=== PATIENT | female | born 1955 | race Caucasian/White ===

== ENCOUNTER → 2016-02-21 | Outpatient (CLI) | payer MEDICARE, MEDICAID ==
[~2016-02-21] MED LIST: ALBU0.086 NEB; AMIO200T PO; ASPI81TA45 PO; ATOR40TA PO; BUME1TAB PO; ENAL10TA7 PO; GLIM1TAB PO; HYDR-3533 PO; IMDU30TA PO; KLOR20TA6 PO; LORTA5 PO; METO50TA PO; OMEP20TA PO; PARO40TA PO; RIVA15 PO; SPIR25TA PO; SYMB160A INH; SYNT25TA PO; Z.0.WALKERFRONT
[2016-02-21 11:56] LABS: AUTOMATED NEUTROPHIL # 5.9 TH/MM3 (1.8-7.7); BASOPHIL % 0.4 % (0.0-2.0); EOSINOPHIL # 0.2 TH/MM3 (0-0.4); EOSINOPHIL % 2.4 % (0.0-4.0); HEMO FLAGS DIFF FINAL; LYMPHOCYTE # 1.4 TH/MM3 (1.0-4.8); MEAN CELL VOLUME 76.8 FL (80.0-100.0); MEAN CORPUSCULAR HGB CONC 32.6 % (32.0-36.0); MONO % 7.5 % (0.0-8.0); NEUT % 72.7 % (16.0-70.0); PLATELET COUNT 268 TH/MM3 (150-450); RED BLOOD COUNT 5.34 MIL/MM3 (4.00-5.30); RED CELL DISTRIBUTION WIDTH 16.2 % (11.6-17.2); WHITE BLOOD COUNT 8.1 TH/MM3 (4.0-11.0)
[2016-02-21 12:20] LABS: MICRO ALBUMIN RANDOM URINE RAW 16.6 MG/L (0.0-30.0)
[2016-02-21 12:24] LABS: ALKALINE PHOSPHATASE 121 U/L (45-117); ALT (GPT) 12 U/L (10-53); ANION GAP 6 MEQ/L (5-15); AST (GOT) 10 U/L (15-37); BICARBONATE 29.7 MEQ/L (21.0-32.0); BLOOD UREA NITROGEN 23 MG/DL (7-18); CHLORIDE 104 MEQ/L (98-107); GLOMERULAR FILTRATION RATE 57 ML/MIN (>89); GLUCOSE,FASTING 74 MG/DL (74-99); SODIUM (NA) 140 MEQ/L (136-145); TOTAL BILIRUBIN ADULT 0.5 MG/DL (0.2-1.0)
[2016-02-21 12:45] LABS: HDL CHOLESTEROL 39.6 MG/DL (40.0-60.0); LDL CHOLESTEROL 108 MG/DL (0-99)
[2016-02-21 17:02] LABS: HEMOGLOBIN A1a 1.1 %; HEMOGLOBIN A1b 1.6 %; HEMOGLOBIN Ao 84.2 %; HEMOGLOBIN LA1C 2.1 %; HEMOGLOBIN P3 5.8 %
== END ==
LOC: CLAB 10:48
PROVIDERS: ATTEND Internal Medicine Rheumatology
DX: I11.0 Hypertensive heart disease with heart failure (principal); I82.409 Acute embolism and thrombosis of unspecified deep veins of unspecified lower extremity; I50.9 Heart failure, unspecified; J44.9 Chronic obstructive pulmonary disease, unspecified; I25.10 Atherosclerotic heart disease of native coronary artery without angina pectoris; E11.9 Type 2 diabetes mellitus without complications; M05.79 Rheumatoid arthritis with rheumatoid factor of multiple sites without organ or systems involvement
CPT/HCPCS: 36415; 80053; 80061; 82043; 83036; 84443; 85025; 85652; 86140; 86200; 86430

== ENCOUNTER → 2016-07-14 | Outpatient (CLI) | payer MEDICARE, MEDICAID ==
[2016-07-14 10:49] LABS: BASOPHIL # 0.1 TH/MM3 (0-0.2); BASOPHIL % 0.7 % (0.0-2.0); EOSINOPHIL # 0.2 TH/MM3 (0-0.4); EOSINOPHIL % 2.5 % (0.0-4.0); HEMATOCRIT 34.9 % (35.0-46.0); HEMO FLAGS DIFF FINAL; LYMPH % 16.7 % (9.0-44.0); LYMPHOCYTE # 1.2 TH/MM3 (1.0-4.8); MEAN CELL VOLUME 82.1 FL (80.0-100.0); MEAN CORPUSCULAR HGB CONC 32.9 % (32.0-36.0); MONO % 7.7 % (0.0-8.0); NEUT % 72.4 % (16.0-70.0); PLATELET COUNT 211 TH/MM3 (150-450); RED BLOOD COUNT 4.25 MIL/MM3 (4.00-5.30); RED CELL DISTRIBUTION WIDTH 16.6 % (11.6-17.2); WHITE BLOOD COUNT 6.9 TH/MM3 (4.0-11.0)
[2016-07-14 11:17] LABS: ANION GAP 6 MEQ/L (5-15); AST (GOT) 22 U/L (15-37); BICARBONATE 26.9 MEQ/L (21.0-32.0); BLOOD UREA NITROGEN 17 MG/DL (7-18); CHLORIDE 110 MEQ/L (98-107); GLOMERULAR FILTRATION RATE 64 ML/MIN (>89); GLUCOSE,FASTING 92 MG/DL (74-99); POTASSIUM 4.1 MEQ/L (3.5-5.1); SODIUM (NA) 143 MEQ/L (136-145)
[2016-07-14 11:29] LABS: ALKALINE PHOSPHATASE 93 U/L (45-117); ALT (GPT) 17 U/L (10-53); HDL CHOLESTEROL 38.9 MG/DL (40.0-60.0); LDL CHOLESTEROL 100 MG/DL (0-99); TOTAL BILIRUBIN ADULT 0.4 MG/DL (0.2-1.0)
[2016-07-14 17:47] LABS: HEMOGLOBIN A1b 1.8 %; HEMOGLOBIN Ao 84.8 %; HEMOGLOBIN P3 5.6 %
== END ==
LOC: CLAB 10:27
PROVIDERS: ATTEND Family Medicine
DX: I48.91 Unspecified atrial fibrillation (principal); I25.10 Atherosclerotic heart disease of native coronary artery without angina pectoris; E78.5 Hyperlipidemia, unspecified; I10 Essential (primary) hypertension; E03.2 Hypothyroidism due to medicaments and other exogenous substances; M06.9 Rheumatoid arthritis, unspecified
CPT/HCPCS: 36415; 80053; 80061; 83036; 84443; 85025

== ENCOUNTER → 2016-08-15 | Outpatient (CLI) | payer MEDICARE, MEDICAID ==
[2016-08-15 09:44] LABS: AUTOMATED NEUTROPHIL # 5.5 TH/MM3 (1.8-7.7); BASOPHIL % 0.5 % (0.0-2.0); EOSINOPHIL # 0.2 TH/MM3 (0-0.4); EOSINOPHIL % 2.3 % (0.0-4.0); HEMATOCRIT 38.8 % (35.0-46.0); HEMO FLAGS DIFF FINAL; LYMPH % 17.4 % (9.0-44.0); LYMPHOCYTE # 1.3 TH/MM3 (1.0-4.8); MEAN CELL VOLUME 83.9 FL (80.0-100.0); MEAN CORPUSCULAR HEMOGLOBIN 26.8 PG (27.0-34.0); MONO % 8.3 % (0.0-8.0); NEUT % 71.5 % (16.0-70.0); PLATELET COUNT 215 TH/MM3 (150-450); RED BLOOD COUNT 4.62 MIL/MM3 (4.00-5.30); RED CELL DISTRIBUTION WIDTH 15.8 % (11.6-17.2); WHITE BLOOD COUNT 7.7 TH/MM3 (4.0-11.0)
== END ==
LOC: CLAB 09:22
PROVIDERS: ATTEND Family Medicine
DX: I82.409 Acute embolism and thrombosis of unspecified deep veins of unspecified lower extremity (principal); I48.91 Unspecified atrial fibrillation; Z79.01 Long term (current) use of anticoagulants
CPT/HCPCS: 36415; 85025

== ENCOUNTER 2016-11-22 21:40 | Observation (INO) | payer MEDICARE, MEDICAID ==
[~2016-11-22] VITALS: Ht 172.7 cm; Wt 132.0 kg
[2016-11-22 21:47] VITALS: BP 134/82; PULSE 80; RESP 24; TEMP 98; O2SAT 93
[2016-11-22 22:06] VITALS: O2SAT 95
[2016-11-22] MEDS ORDERED: ISOS30TA3 PO (22:09)
[2016-11-22] MEDS ORDERED: METO50TA PO (22:10)
[2016-11-22] MEDS ORDERED: PRED5TAB PO (22:10)
[2016-11-22] MEDS ORDERED: OMEP20TA PO (22:10)
[2016-11-22] MEDS ORDERED: ATOR40TA16 PO (22:11)
[2016-11-22] MEDS ORDERED: WARF4TAB52 PO (22:12)
[2016-11-22] MEDS ORDERED: SPIR25TA PO (22:12)
[2016-11-22] MEDS ORDERED: WARF-23 PO (22:12)
[2016-11-22] MEDS ORDERED: AMIO200T PO (22:13)
[2016-11-22] MEDS ORDERED: VENL75TA2 PO (22:14)
[2016-11-22] MEDS ORDERED: LEVO.1 PO (22:14)
[2016-11-22] MEDS ORDERED: BUME1TAB PO (22:14)
[2016-11-22] MEDS ORDERED: ALBUAER3 INH (22:15)
[2016-11-22] MEDS ORDERED: SODIUM CHLORIDE 0.9% FLUSH 10 ML FLUSH IV FLUSH PRN (22:15)
[2016-11-22] MEDS ORDERED: XANA1TAB2 PO (22:15)
[2016-11-22] MEDS ORDERED: NORC5TAB PO (22:16)
--- NOTE | 2016-11-22 22:20 | PD ---
HPI Chief Complaint: chest pain Time Seen by Provider: 22:08 Travel History International Travel<30 days: No Contact w/Intl Traveler<30days: No Traveled to known affect area: No History of Present Illness HPI 61yo F with PMH of COPD, CAD s/p bypass, CHF s/p pace maker presents to the ED with c/o midsternal chest pain that started around an hour and a half ago. Pain is intermittent. Pt also had a different pain in mid back between the scapula that went away. Pt always ave sob since she has COPD. Denies any nausea, diaphoresis, abdominal pain, focal weakness or numbness. Normal bowel movement. Cuffer is Dr. Bryson. Has not had recent stress test. PFSH Past Medical History Hx Anticoagulant Therapy: Yes Arthritis: Yes (HIPS AND LEFT KNEE) Asthma: No Atrial Fibrillation: Yes Autoimmune Disease: Yes (RA) Blood Disorders: No Anxiety: Yes Depression: No Heart Rhythm Problems: Yes (AFIB) Cancer: Yes (POSSIBLE RIGHT BREAST - NEEDS BIOPSY) Cardiac Catheterization: Yes Cardiovascular Problems: Yes High Cholesterol: Yes Chemotherapy: No Chest Pain: Yes Congestive Heart Failure: Yes COPD: Yes Cerebrovascular Accident: No Coronary Artery Disease: Yes Diabetes: Yes (TYPE 2) Patient Takes Glucophage: No Diminished Hearing: No Endocrine: Yes Gastrointestinal Disorders: No GERD: Yes Glaucoma: No Genitourinary: Yes ("Polycystic kidneys") Headaches: No Hepatitis: No Hiatal Hernia: No Hypertension: Yes Immune Disorder: No Implanted Vascular Access Dvce: Yes Kidney Stones: No Respiratory: Yes (O2 AT HOME) Integumentary: Yes (H/O MRSA) Immunizations Current: No Migraines: No Myocardial Infarction: Yes (X 2) Radiation Therapy: No Renal Failure: No Seizures: No Sickle Cell Disease: No Sleep Apnea: No Thyroid Disease: Yes Ulcer: No Tetanus Vaccination: Unknown ?: Not Menopausal: Yes Tubal Ligation: Yes (1982) Past Surgical History Abdominal Surgery: Yes AICD: Yes (GUIDANT: ICD T125/484889, LEAD [id number], LEAD [id number]) Appendectomy: No Arteriovenous Shunt: No Body Medical Devices: PACER/DEFIB Cardiac Surgery: Yes (Ablations, PM, AICD) Cholecystectomy: No Coronary Artery Bypass Graft: Yes (QUADRUPLE BYPASS) Ear Surgery: No Endocrine Surgery: No Eye Surgery: No Genitourinary Surgery: No Gynecologic Surgery: No Insulin Pump: No Joint Replacement: No Neurologic Surgery: No Oral Surgery: No Pacemaker: Yes (09/23/06--"PACEMAKER AND DEFIBRILLATOR" [employer]) Thoracic Surgery: No Tonsillectomy: Yes Other Surgery: Yes (cabg 2006, endemetrial bypasss, ablations x 4, Aicd) Social History Alcohol Use: No Tobacco Use: No Substance Use: No Allergies-Medications (Allergen,Severity, Reaction): Coded Allergies: azithromycin (Unverified Allergy, Severe, 09/23/16) CAN NOT TAKE DUE TO STUDY MED cyclosporine (Unverified Allergy, Severe, 09/23/16) CAN NOT TAKE DUE TO STUDY MEDS erythromycin base (Unverified Allergy, Severe, 09/23/16) CAN NOT TAKE DUE TO STUDY MEDS vancomycin (Unverified Allergy, Severe, FACIAL SWELLING, 09/23/16) levofloxacin (Unverified Allergy, Mild, ITCHING, 09/23/16) *MDRO Multi-Drug Resistant Organism (Unverified Adverse Reaction, Unknown , 08/18/15) MRSA PCR Screen negative 09/01/14. Reported Meds & Prescriptions Reported Meds & Active Scripts Active Reported Foster (Hydrocodone-Acetaminophen) 5-325 mg Tab 1 Tab PO Q6H PRN Proair Hfa 8.5 GM Inh (Albuterol Sulfate) 90 Mcg/Act Aer 2 Puff INH Q4-6H PRN 108 mcg/actuation Bumetanide 1 Mg Tab 1 Mg PO DAILY Venlafaxine ER 24 HR (Venlafaxine HCl) 75 Mg Tab 75 Mg PO DAILY Synthroid (Levothyroxine Sodium) 100 Mcg Tab 200 Mcg PO DAILY Amiodarone (Amiodarone HCl) 200 Mg Tab 200 Mg PO DAILY Spironolactone 25 Mg Tab 12.5 Mg PO DAILY Warfarin 5 Mg Tab 5.5 Mg PO DAILY Atorvastatin (Atorvastatin Calcium) 40 Mg Tab 40 Mg PO HS Omeprazole 20 Mg Tab 20 Mg PO DAILY Prednisone 5 Mg Tab 5 Mg PO BID Metoprolol Tartrate 50 Mg Tab 50 Mg PO BID Isosorbide Mononitrate ER (Isosorbide Mononitrate) 30 Mg Nancy 30 Mg PO DAILY Review of Systems Except as stated in HPI: all other systems reviewed are Neg Physical Exam Narrative GENERAL: 61yo F not in distress. SKIN: Focused skin assessment warm/dry. HEAD: Atraumatic. Normocephalic. EYES: Pupils equal and round. No scleral icterus. No injection or drainage. ENT: No nasal bleeding or discharge. Mucous membranes pink and moist. NECK: Trachea midline. No JVD. CARDIOVASCULAR: Regular rate and rhythm. No murmur appreciated. RESPIRATORY: No accessory muscle use. Clear to auscultation. Breath sounds equal bilaterally. CHEST WALL: +TTP xyphoid process. GASTROINTESTINAL: Abdomen soft, non-tender, nondistended. No rebound tenderness or guarding. MUSCULOSKELETAL: No obvious deformities. No clubbing. No cyanosis. +Bilateral lower ext edema. NEUROLOGICAL: Awake and alert. No obvious cranial nerve deficits. Motor grossly within normal limits. Normal speech. PSYCHIATRIC: Appropriate mood and affect; insight and judgment normal. Data Data Last Documented VS Vital Signs Date Time Temp Pulse Resp B/P (MAP) Pulse Ox O2 Delivery O2 Flow Rate FiO2 11/22/16 22:06 95 Room Air 11/22/16 21:57 3.00 11/22/16 21:47 98.0 80 24 134/82 (99) Orders Orders Complete Blood Count With Diff (11/22/16 22:03) Comprehensive Metabolic Panel (11/22/16 22:03) Lipase (11/22/16 22:03) Prothrombin Time / Inr (Pt) (11/22/16 22:03) Act Partial Throm Time (Ptt) (11/22/16 22:03) Iv Access Insert/Monitor (11/22/16 22:03) Ecg Monitoring (11/22/16 22:03) Oximetry (11/22/16 22:03) Sodium Chloride 0.9% Flush (Ns Flush) (11/22/16 22:15) Electrocardiogram (11/22/16 22:03) Creatine Kinase (Cpk) (11/22/16 22:03) Troponin I (11/22/16 22:03) Chest, Single Ap (11/22/16 ) Nitroglycerin Sl (Nitrostat Sl) (11/22/16 23:00) Nitroglycerin Sl (Nitrostat Sl) (11/22/16 22:49) Morphine Inj (Morphine Inj) (11/22/16 23:45) Labs Laboratory Tests Test 11/22/16 22:15 White Blood Count 7.6 TH/MM3 Red Blood Count 4.30 MIL/MM3 Hemoglobin 12.0 GM/DL Hematocrit 36.9 % Mean Corpuscular Volume 85.8 FL Mean Corpuscular Hemoglobin 27.8 PG Mean Corpuscular Hemoglobin Concent 32.4 % Red Cell Distribution Width 16.3 % Platelet Count 204 TH/MM3 Mean Platelet Volume 7.3 FL Neutrophils (%) (Auto) 74.4 % Lymphocytes (%) (Auto) 12.3 % Monocytes (%) (Auto) 11.2 % Eosinophils (%) (Auto) 1.5 % Basophils (%) (Auto) 0.6 % Neutrophils # (Auto) 5.6 TH/MM3 Lymphocytes # (Auto) 0.9 TH/MM3 Monocytes # (Auto) 0.8 TH/MM3 Eosinophils # (Auto) 0.1 TH/MM3 Basophils # (Auto) 0.0 TH/MM3 CBC Comment DIFF FINAL Differential Comment Prothrombin Time 28.6 SEC Prothromb Time International Ratio 2.5 RATIO Activated Partial Thromboplast Time 42.7 SEC Blood Urea Nitrogen 14 MG/DL Creatinine 1.01 MG/DL Random Glucose 102 MG/DL Total Protein 7.1 GM/DL Albumin 3.1 GM/DL Calcium Level 8.8 MG/DL Alkaline Phosphatase 230 U/L Aspartate Amino Transf (AST/SGOT) 60 U/L Alanine Aminotransferase (ALT/SGPT) 27 U/L Total Bilirubin 0.9 MG/DL Sodium Level 141 MEQ/L Potassium Level 4.2 MEQ/L Chloride Level 107 MEQ/L Carbon Dioxide Level 26.1 MEQ/L Anion Gap 8 MEQ/L Estimat Glomerular Filtration Rate 56 ML/MIN Total Creatine Kinase 41 U/L Troponin I LESS THAN 0.02 NG/ML Lipase 92 U/L [facility] Medical Decision Making Medical Screen Exam Complete: Yes Emergency Medical Condition: Yes Interpretation(s) EKG: Paced atrial rhythm. No ST segment elevation or depression. Differential Diagnosis ACS vs. GERD vs. musculoskeletal pain Narrative Course 61yo F with CAD here with midsternal chest pain for 1.5 hours. CXR showed cardiomegaly. Labs reviewed, no leukocytosis. Troponin negative. INR 2.5, therapeutic. Pt is on coumadin. Pt given nitroglycerin and morphine 2mg which improved the chest pain. Given that pt has not had recent stress test, will do serial EKG and cardiac enzyme and admit to chest pain center. Diagnosis Primary Impression: Chest pain Qualified Codes: R07.9 - Chest pain, unspecified Admitting Information Admitting Physician Requests: Carmen Dodson DO Nov 22, 2016 22:20
[2016-11-22 22:25] LABS: AUTOMATED NEUTROPHIL # 5.6 TH/MM3 (1.8-7.7); BASOPHIL % 0.6 % (0.0-2.0); EOSINOPHIL # 0.1 TH/MM3 (0-0.4); EOSINOPHIL % 1.5 % (0.0-4.0); HEMATOCRIT 36.9 % (35.0-46.0); HEMO FLAGS DIFF FINAL; LYMPH % 12.3 % (9.0-44.0); LYMPHOCYTE # 0.9 TH/MM3 (1.0-4.8); MEAN CELL VOLUME 85.8 FL (80.0-100.0); MEAN CORPUSCULAR HEMOGLOBIN 27.8 PG (27.0-34.0); MEAN CORPUSCULAR HGB CONC 32.4 % (32.0-36.0); MONO % 11.2 % (0.0-8.0); NEUT % 74.4 % (16.0-70.0); PLATELET COUNT 204 TH/MM3 (150-450); RED CELL DISTRIBUTION WIDTH 16.3 % (11.6-17.2); WHITE BLOOD COUNT 7.6 TH/MM3 (4.0-11.0)
[2016-11-22 22:36] LABS: APTT (PATIENT) 42.7 SEC (24.3-30.1); INTERNATIONAL NORMALIZED RATIO 2.5 RATIO; PROTHROMBIN TIME - PATIENT 28.6 SEC (9.8-11.6)
[2016-11-22] MEDS ORDERED: NITROGLYCERIN 0.4 MG SL 25 TABS/BTL SL ONE ×2 (22:49→23:00)
[2016-11-22 22:54] LABS: ALT (GPT) 27 U/L (10-53); ANION GAP 8 MEQ/L (5-15); AST (GOT) 60 U/L (15-37); BICARBONATE 26.1 MEQ/L (21.0-32.0); BLOOD UREA NITROGEN 14 MG/DL (7-18); CHLORIDE 107 MEQ/L (98-107); GLOMERULAR FILTRATION RATE 56 ML/MIN (>89); POTASSIUM 4.2 MEQ/L (3.5-5.1); SODIUM (NA) 141 MEQ/L (136-145)
--- NOTE | 2016-11-22 22:57 | RADRPT ---
EXAM DATE/TIME: 11/22/2016 22:23 [facility] COMPARISON: CHEST SINGLE AP, November 04, 2014, 16:22. INDICATIONS : Chest pain. MEDICAL HISTORY : Chronic obstructive pulmonary disease. Hypercholesterolemia. Congestive heart failure. A-fib, Hyp ertension, Diabetes, GERD. SURGICAL HISTORY : Tonsillectomy. Pacemaker. CABG Ablations. Internal defibrillator. ENCOUNTER: Initial ACUITY: 1 day PAIN SCORE: 10/10 LOCATION: Bilateral chest FINDINGS: The heart is moderately enlarged. Postsurgical changes from prior CABG are noted. AICD device is note d. Again noted is elevation left hemidiaphragm. Air filled stomach is identified below the left hemidiap hragm. Some minimal atelectasis is seen in the left base. Right lung is clear. CONCLUSION: Cardiomegaly without evidence of significant congestion. Left basilar airspace disease. Elevated left hemidiaphragm Jorge Gee MD on November 22, 2016 at 22:54 Board Certified Radiologist. This report was verified electronically.
[2016-11-22 22:58] LABS: ALKALINE PHOSPHATASE 230 U/L (45-117); TOTAL BILIRUBIN ADULT 0.9 MG/DL (0.2-1.0)
[2016-11-22 23:01] LABS: CREATINE KINASE 41 U/L (26-192)
[2016-11-22] MEDS ORDERED: MORPHINE SULFATE 2 MG/ML INJ IV PUSH ONE (23:45)
[2016-11-23 01:01] VITALS: BP 125/80; PULSE 80; RESP 24; O2SAT 94
[2016-11-23 04:40] VITALS: BP 111/67; PULSE 80; RESP 18; TEMP 97.6; O2SAT 97
[2016-11-23 04:42] VITALS: PULSE 80
[2016-11-23 07:57] VITALS: O2SAT 96
[2016-11-23] MEDS ORDERED: ONDANSETRON HCL 4 MG/2 ML VIAL IV PUSH PRN (08:00)
[2016-11-23] MEDS ORDERED: ACETAMINOPHEN 500 MG CPLT PO PRN (08:00)
[2016-11-23] MEDS ORDERED: NITROGLYCERIN 0.4 MG SL 25 TABS/BTL SL PRN (08:00)
[2016-11-23] MEDS ORDERED: ASPIRIN 325 MG TAB PO SCH (09:00)
[2016-11-23] MEDS ORDERED: SODIUM CHLORIDE 0.9% FLUSH 10 ML FLUSH IV FLUSH SCH (09:00)
--- NOTE | 2016-11-23 10:18 | HHI.HP ---
HPI Primary Care Physician Agnes Rubio MD Chief Complaint Chest pain History of Present Illness 61-year-old female with history of polycystic renal disease, CABG 4, and rheumatoid arthritis presents to emergency room for further evaluation of chest pain. Onset 8PM, nonexertional. Location substernal. Characterized as a quick , sharp constant pain. After 10 minutes pain radiated between her shoulder blades. Discomfort persisted and became more intense therefore she called EMS. Paramedics encouraged her to come to emergency room for further evaluation. Associated symptoms included mild nausea. Denied vomiting, shortness breath, or diaphoresis. Denies similar pain in the past. No known precipitating factors. Relieving factors with a "shot given in ED." States pain was resolved with medication and has not returned. She remains chest pain free. Follows with Dr. Bryson and recently started on Entresto, increasing dosage of medication every 2 weeks for past month. Next appointment this . Review of Systems General: No fatigue,weakness, fever, chills, recent illness, or change in appetite. Has been in her general state of health. Currently. enrolled and research study for rheumatoid arthritis. HEENT: No ROLAND, no vision changes CV: As stated above. No current CP, pressure, or palpitations. History of times for cardiac ablations, DC x2, Cabg x4 (2006). Recently started on Entresto one month ago. Pacer/defib. RESP: No SOB, cough, or sputum production History of COPD. O2/2L nasal cannula at night. GI: Nausea improved. No vomiting, bowel changes, diarrhea, constipation, pain, distention, melena, or blood in the stool. Taking warfarin and previously educated on monitoring stool. : History of polycystic renal disease. No dysuria, urgency, or frequency. EXT: Occasional dependent lower leg, prescribed Bumex when necessary. MS: No discomfort or change in ROM, ambulates with walker. NEURO: No change in memory, LOC, motor/sensory deficits PSYCH: No anxiety, depression, or situational stress. SKIN: No rashes, no concerning lesions Past Family Social History Allergies: Coded Allergies: azithromycin (Unverified Allergy, Severe, 09/23/16) CAN NOT TAKE DUE TO STUDY MED cyclosporine (Unverified Allergy, Severe, 09/23/16) CAN NOT TAKE DUE TO STUDY MEDS erythromycin base (Unverified Allergy, Severe, 09/23/16) CAN NOT TAKE DUE TO STUDY MEDS vancomycin (Unverified Allergy, Severe, FACIAL SWELLING, 09/23/16) levofloxacin (Unverified Allergy, Mild, ITCHING, 09/23/16) *MDRO Multi-Drug Resistant Organism (Unverified Adverse Reaction, Unknown , 08/18/15) MRSA PCR Screen negative 09/01/14. Past Medical History Polycystic kidney disease, COPD, CAD, DC 2, CHF, rheumatoid arthritis, A. fib, hyperlipidemia, hypothyroidism, DVT (left knee DVT 10 months ago) Past Surgical History CABG x4 (2006), pacer/defibrillator, cardiac ablations x4 Reported Medications Active Reported Agate (Hydrocodone-Acetaminophen) 5-325 mg Tab 1 Tab PO Q6H PRN Proair Hfa 8.5 GM Inh (Albuterol Sulfate) 90 Mcg/Act Aer 2 Puff INH Q4-6H PRN 108 mcg/actuation Bumetanide 1 Mg Tab 1 Mg PO DAILY Venlafaxine ER 24 HR (Venlafaxine HCl) 75 Mg Tab 75 Mg PO DAILY Synthroid (Levothyroxine Sodium) 100 Mcg Tab 200 Mcg PO DAILY Amiodarone (Amiodarone HCl) 200 Mg Tab 200 Mg PO DAILY Spironolactone 25 Mg Tab 12.5 Mg PO DAILY Warfarin 5 Mg Tab 5.5 Mg PO DAILY Atorvastatin (Atorvastatin Calcium) 40 Mg Tab 40 Mg PO HS Omeprazole 20 Mg Tab 20 Mg PO DAILY Prednisone 5 Mg Tab 5 Mg PO BID Metoprolol Tartrate 50 Mg Tab 50 Mg PO BID Isosorbide Mononitrate ER (Isosorbide Mononitrate) 30 Mg Nancy 30 Mg PO DAILY Entresto (dose unknown)-past month, follows with Dr. Fuentes every 2 weeks for increase in dosage, scheduled to see him 11/27/16 RA test drug (drug and dosage unknown as she is enrolled in a research study) Active Ordered Medications Current Medications Medications (Trade) Dose Ordered Sig/Alexa Route Start Time Stop Time Status Last Admin (NS Flush) 2 ml UNSCH PRN IV FLUSH 11/22/16 22:15 (NS Flush) 2 ml BID IV FLUSH 11/23/16 09:00 11/23/16 08:13 (Tylenol) 500 mg Q4H PRN PO 11/23/16 08:00 (Zofran Inj) 4 mg Q6H PRN IV PUSH 11/23/16 08:00 (Nitrostat Sl) 0.4 mg Q5M PRN SL 11/23/16 08:00 (Aspirin) 325 mg DAILY PO 11/23/16 09:00 11/23/16 08:13 Family History Noncontributory for early onset cardiovascular disease. Social History Known coronary artery disease, hypertension, diabetes, and hyperlipidemia. Former tobacco user. Quit 10 years ago. Reports rare use and was a "social smoker." Denies any illegal drug use or alcohol use. Ambulates with a walker. Endorses a sedentary lifestyle. Past cardiac testing Patient's special education para professional is Dr. Bryson. 04/06/2012 Dual pacer replaced battery. 09/17/10 cardiac catheterization (Dr. Lopez) Conclusion: 1. Mild to moderate coronary artery disease. 2. Patent MONTOYA to LAD and saphenous vein graft to diagonal. 3. Medical management. 05/02/10 EP study (Dr. Bryson) successful ablation for A. fib 03/07/10 EP study (Dr. Bryson) successful ablation of right ventricular outflow track 03/31/08 EP study (Dr. Bryson) successful ablation AV muna reentrant track 09/21/06 EP study (Dr. Bryson) self-limited left ventricular tachycardia 08/13/06 CABG (Dr. Womack) MONTOYA to LAD. Saphenous vein graft to diagonal. Saphenous vein graft to acute marginal. Saphenous vein graft to RCA/posterior descending artery. Physical Exam Vital Signs Vital Signs Date Time Temp Pulse Resp B/P (MAP) Pulse Ox O2 Delivery O2 Flow Rate FiO2 11/23/16 07:57 96 Nasal Cannula 2.00 11/23/16 04:42 80 11/23/16 04:40 97.6 80 18 111/67 (82) 97 11/23/16 03:26 11/23/16 01:01 80 24 125/80 (95) 94 Nasal Cannula 3.00 11/22/16 22:06 95 Room Air 11/22/16 21:57 95 Nasal Cannula 3.00 11/22/16 21:47 98.0 80 24 134/82 (99) 93 Physical Exam GENERAL: Alert WN, WD, NAD, pleasant, obese female HEAD: NC, AT EYES: Sclera clear, conjunctiva without injection, pupils equal and round ENT: Mucous membranes pink and moist CV: RRR, without murmur, rub, gallop, no JVD, S1-S2 no S3-S4. No carotid bruits. RESP: Clear lungs throughout bilateral, no crackles, wheeze, rhonchi, symmetrical chest rise, nonlabored, able to speak in full sentences ABD: Soft, NT, ND, no masses, positive bowel tones, obese EXT: Pulses +1 left pedal, faint right pedal, no dependent edema, varicosities bilateral lower extremities, toes cool to the touch MS: Normal tone 4 extremities, nontender, no obvious deformities, full range of motion NEURO: CN II through CN XII grossly intact, motor strength 5/5, gait WNL PSYCH: A+O 3, pleasant affect, appropriate speech, appropriate mood and affect , insight and judgment SKIN: Normal turgor, normal texture, no lesions, no rashes Laboratory Laboratory Tests Test 11/22/16 22:15 11/23/16 03:29 11/23/16 06:12 White Blood Count 7.6 Red Blood Count 4.30 Hemoglobin 12.0 Hematocrit 36.9 Mean Corpuscular Volume 85.8 Mean Corpuscular Hemoglobin 27.8 Mean Corpuscular Hemoglobin Concent 32.4 Red Cell Distribution Width 16.3 Platelet Count 204 Mean Platelet Volume 7.3 Neutrophils (%) (Auto) 74.4 Lymphocytes (%) (Auto) 12.3 Monocytes (%) (Auto) 11.2 Eosinophils (%) (Auto) 1.5 Basophils (%) (Auto) 0.6 Neutrophils # (Auto) 5.6 Lymphocytes # (Auto) 0.9 Monocytes # (Auto) 0.8 Eosinophils # (Auto) 0.1 Basophils # (Auto) 0.0 CBC Comment DIFF FINAL Differential Comment Prothrombin Time 28.6 Prothromb Time International Ratio 2.5 Activated Partial Thromboplast Time 42.7 Blood Urea Nitrogen 14 Creatinine 1.01 Random Glucose 102 Total Protein 7.1 Albumin 3.1 Calcium Level 8.8 Alkaline Phosphatase 230 Aspartate Amino Transf (AST/SGOT) 60 Alanine Aminotransferase (ALT/SGPT) 27 Total Bilirubin 0.9 Sodium Level 141 Potassium Level 4.2 Chloride Level 107 Carbon Dioxide Level 26.1 Anion Gap 8 Estimat Glomerular Filtration Rate 56 Total Creatine Kinase 41 Troponin I LESS THAN 0.02 LESS THAN 0.02 LESS THAN 0.02 Lipase 92 Result Diagram: 11/22/16 2215 11/22/16 2215 Imaging Last Impressions Chest X-Ray 11/22/16 0000 Signed Impressions: Service Date/Time: Thursday, November 22, 2016 22:23 - CONCLUSION: Cardiomegaly without evidence of significant congestion. Left basilar airspace disease. Elevated left hemidiaphragm Jorge Gee MD Course EKG Atrial paced Caprini VTE Risk Assessment Caprini VTE Risk Assessment: Mod/High Risk (score >= 2) Caprini Risk Assessment Model Point Value = 1 Point Value = 2 Point Value = 3 Point Value = 5 Age 41-60 Minor surgery BMI > 25 kg/m2 Swollen legs Varicose veins or History of unexplained or recurrent spontaneous Oral contraceptives or hormone replacement Sepsis (< 1 month) Serious lung disease, including pneumonia (< 1 month) Abnormal pulmonary function Acute myocardial infarction Congestive heart failure (< 1 month) History of inflammatory bowel disease Medical patient at bed rest Age 61-74 Arthroscopic surgery Major open surgery (> 45 min) Laparoscopic surgery (> 45 min) Malignancy Confined to bed (> 72 hours) Immobilizing plaster cast Central venous access Age >= 75 History of VTE Family history of VTE Factor V Leiden Prothrombin [id number] Lupus anticoagulant Anticardiolipin antibodies Elevated serum homocysteine Heparin-induced thrombocytopenia Other congenital or acquired thrombophilia Stroke (< 1 month) Elective arthroplasty Hip, pelvis, or leg fracture Acute spinal cord injury (< 1 month) Prophylaxis Regimen Total Risk Factor Score Risk Level Prophylaxis Regimen 0-1 Low Early ambulation 2 Moderate Order ONE of the following: *Sequential Compression Device (SCD) *Heparin 5000 units SQ BID 3-4 Higher Order ONE of the following medications: *Heparin 5000 units SQ TID *Enoxaparin/Lovenox 40 mg SQ daily (WT < 150 kg, CrCl > 30 mL/min) *Enoxaparin/Lovenox 30 mg SQ daily (WT < 150 kg, CrCl > 10-29 mL/min) *Enoxaparin/Lovenox 30 mg SQ BID (WT < 150 kg, CrCl > 30 mL/min) AND/OR *Sequential Compression Device (SCD) 5 or more Highest Order ONE of the following medications: *Heparin 5000 units SQ TID (Preferred with Epidurals) *Enoxaparin/Lovenox 40 mg SQ daily (WT < 150 kg, CrCl > 30 mL/min) *Enoxaparin/Lovenox 30 mg SQ daily (WT < 150 kg, CrCl > 10-29 mL/min) *Enoxaparin/Lovenox 30 mg SQ BID (WT < 150 kg, CrCl > 30 mL/min) AND *Sequential Compression Device (SCD) Assessment and Plan Assessment and Plan #1 Chest pain-admitted to chest pain center. Ruled out with 3 sets of EKGs, cardiac enzymes, and monitored on telemetry. Seen and evaluated by Dr. Tony Fisher. She does not want to have stress testing done here. Has an appointment scheduled with Dr. Bryson this coming . Okay for discharge and follow up with Dr. Bryson. Discussed importance of returning to ER if pain were to return. Patient agreeable to plan of care. #2 CHF-no acute findings, continues spironolactone and Entresto as previously instructed. #3 History of CAD-continue Imdur, metoprolol, and atorvastatin #4 Hypothyroidism-continue levothyroxine #5 History of DVT-continue warfarin, INR therapeutic #6 Rheumatoid arthritis-continue prednisone. Continue research medication as previously instructed, once returning home. #7 Polycystic renal disease-follow with PCP Diana Haas Nov 23, 2016 10:18
[2016-11-23] MEDS ORDERED: predniSONE 5 MG TAB PO SCH (11:45)
[2016-11-23] MEDS ORDERED: SPIRONOLACTONE 25 MG TAB PO SCH (11:45)
[2016-11-23] MEDS ORDERED: LEVOTHYROXINE SODIUM 100 MCG TAB PO SCH (11:45)
[2016-11-23] MEDS ORDERED: AMIODARONE 200 MG TAB PO SCH (11:45)
[2016-11-23] MEDS ORDERED: METOPROLOL TARTRATE 50 MG TAB PO SCH (11:45)
[2016-11-23] MEDS ORDERED: ISOSORBIDE MONONITRATE 30 MG TAB PO SCH (11:45)
[2016-11-23] MEDS ORDERED: VENLAFAXINE HCL XR 75 MG CAP PO SCH (11:45)
--- NOTE | 2016-11-23 11:45 | HHI.DCPOC ---
Discharge Care Plan Diagnosis: (1) Polycystic kidney disease (2) History of four vessel coronary artery bypass graft (3) Atypical chest pain (4) Hx of coronary artery disease Goals to Promote Your Health * To prevent worsening of your condition and complications * To maintain your health at the optimal level Directions to Meet Your Goals Take your medications as prescribed Follow your dietary instruction Follow activity as directed Keep your appointments as scheduled Take your immunizations and boosters as scheduled If your symptoms worsen call your PCP, if no PCP go to Urgent Care Center or Emergency Room Smoking is Dangerous to Your Health. Avoid second hand smoke Call the 24-hour hour crisis hotline for domestic abuse at Diana Haas Nov 23, 2016 11:45
[2016-11-23] MEDS ORDERED: PANTOPRAZOLE SOD 20 MG DELAYED RELEASE TAB PO SCH (12:00)
[2016-11-23] MEDS ORDERED: PILL SPLITTER OTHER PRN (12:00)
[2016-11-23 12:07] VITALS: BP 90/58; RESP 18; TEMP 97.8; O2SAT 96
--- NOTE | 2016-11-23 12:42 | EKG ---
Date Performed: 11/23/2016 Time Performed: 06:07:44 PTAGE: 61 years EKG: ELECTRONIC ATRIAL PACEMAKER MODERATE INTRAVENTRICULAR CONDUCTION DELAY MINIMAL ST DEPRESSIO N ABNORMAL RHYTHM ECG NO SIG CHANGE PREVIOUS TRACING : 11/23/2016 03.20 DOCTOR: Tony Fisher Interpretating Date/Time 11/23/2016 12:41:49
--- NOTE | 2016-11-23 12:42 | EKG ---
Date Performed: 11/23/2016 Time Performed: 03:20:15 PTAGE: 61 years EKG: ELECTRONIC ATRIAL PACEMAKER MODERATE INTRAVENTRICULAR CONDUCTION DELAY MINIMAL ST DEPRESSIO N ABNORMAL RHYTHM ECG NO SIG CHANGE PREVIOUS TRACING : 11/22/2016 21.53 DOCTOR: Tony Fisher Interpretating Date/Time 11/23/2016 12:42:07
--- NOTE | 2016-11-23 12:44 | EKG ---
Date Performed: 11/22/2016 Time Performed: 21:53:06 PTAGE: 61 years EKG: ELECTRONIC ATRIAL PACEMAKER MODERATE INTRAVENTRICULAR CONDUCTION DELAY NONSPECIFIC T-WAVE A BNORMALITY ABNORMAL RHYTHM ECG PREVIOUS TRACING : 11/04/2014 15.40 DOCTOR: Tony Fisher Interpretating Date/Time 11/23/2016 12:43:19
== END 2016-11-23 13:56 | disposition home or self-care (01) ==
LOC: NEPE 21:40 → NEDA 11-23 00:52 → INTOOBSV 11-23 00:52 → NEPHCDU 11-23 03:02
PROVIDERS: ADMIT Internal Medicine Interventional Cardiology; ATTEND Internal Medicine Interventional Cardiology
DX: R07.89 Other chest pain (principal); I25.10 Atherosclerotic heart disease of native coronary artery without angina pectoris; I11.0 Hypertensive heart disease with heart failure; I50.9 Heart failure, unspecified; I47.2 Ventricular tachycardia; I48.91 Unspecified atrial fibrillation; M06.9 Rheumatoid arthritis, unspecified; J44.9 Chronic obstructive pulmonary disease, unspecified; F41.9 Anxiety disorder, unspecified; E11.9 Type 2 diabetes mellitus without complications; Q61.3 Polycystic kidney, unspecified; Z99.81 Dependence on supplemental oxygen; Z79.01 Long term (current) use of anticoagulants; Z95.1 Presence of aortocoronary bypass graft; Z95.0 Presence of cardiac pacemaker
CPT/HCPCS: 71010; 80053; 82550; 83690; 84484; 85025; 85610; 85730; 93005; 99285; G0378; J2270

== ENCOUNTER → 2016-12-22 | Outpatient (CLI) | payer MEDICARE, MEDICAID ==
[~2016-12-22] MED LIST changes: -ALBU0.086 NEB; +ALBUAER3 INH; -ASPI81TA45 PO; -ATOR40TA PO; +ATOR40TA16 PO; -ENAL10TA7 PO; -GLIM1TAB PO; -HYDR-3533 PO; -IMDU30TA PO; +ISOS30TA3 PO; -KLOR20TA6 PO; +LEVO.1 PO; -LORTA5 PO; +NORC5TAB PO; -OMEP20TA PO; +OMEP20TA93 PO; -PARO40TA PO; +PRED5TAB PO; -RIVA15 PO; -SYMB160A INH; -SYNT25TA PO; +VENL75TA2 PO; +WARF-23 PO; -Z.0.WALKERFRONT
[2016-12-22 11:43] LABS: AUTOMATED NEUTROPHIL # 9.1 TH/MM3 (1.8-7.7); BASOPHIL % 0.3 % (0.0-2.0); EOSINOPHIL # 0.2 TH/MM3 (0-0.4); EOSINOPHIL % 1.4 % (0.0-4.0); HEMATOCRIT 41.4 % (35.0-46.0); HEMO FLAGS DIFF FINAL; LYMPH % 11.3 % (9.0-44.0); LYMPHOCYTE # 1.3 TH/MM3 (1.0-4.8); MEAN CELL VOLUME 86.3 FL (80.0-100.0); MEAN CORPUSCULAR HEMOGLOBIN 28.8 PG (27.0-34.0); MEAN CORPUSCULAR HGB CONC 33.4 % (32.0-36.0); MONO % 6.1 % (0.0-8.0); NEUT % 80.9 % (16.0-70.0); PLATELET COUNT 222 TH/MM3 (150-450); RED BLOOD COUNT 4.79 MIL/MM3 (4.00-5.30); RED CELL DISTRIBUTION WIDTH 16.3 % (11.6-17.2); WHITE BLOOD COUNT 11.3 TH/MM3 (4.0-11.0)
[2016-12-22 12:22] LABS: WESTERGREN SEDIMENTATION RATE 22 mm/hr (0-30)
[2016-12-22 13:29] LABS: MICRO ALBUMIN RANDOM URINE RAW 80.3 MG/L (0.0-30.0)
[2016-12-22 13:30] LABS: ALKALINE PHOSPHATASE 109 U/L (45-117); ALT (GPT) 15 U/L (10-53); ANION GAP 9 MEQ/L (5-15); AST (GOT) 13 U/L (15-37); BICARBONATE 26.5 MEQ/L (21.0-32.0); BLOOD UREA NITROGEN 24 MG/DL (7-18); CHLORIDE 106 MEQ/L (98-107); GLOMERULAR FILTRATION RATE 60 ML/MIN (>89); GLUCOSE,FASTING 89 MG/DL (74-99); HDL CHOLESTEROL 62.1 MG/DL (40.0-60.0); LDL CHOLESTEROL 125 MG/DL (0-99); POTASSIUM 4.1 MEQ/L (3.5-5.1); SODIUM (NA) 141 MEQ/L (136-145)
[2016-12-22 17:14] LABS: TOTAL BILIRUBIN ADULT 0.4 MG/DL (0.2-1.0)
== END ==
LOC: CLAB 11:04
PROVIDERS: ATTEND Orthopaedic Surgery
DX: I82.409 Acute embolism and thrombosis of unspecified deep veins of unspecified lower extremity (principal); I48.91 Unspecified atrial fibrillation; I50.9 Heart failure, unspecified; E11.9 Type 2 diabetes mellitus without complications; I11.0 Hypertensive heart disease with heart failure; M06.9 Rheumatoid arthritis, unspecified; Z79.01 Long term (current) use of anticoagulants; Z79.899 Other long term (current) drug therapy; Z11.59 Encounter for screening for other viral diseases
CPT/HCPCS: 36415; 80053; 80061; 82043; 84443; 85025; 85652; 86140; 86803

== ENCOUNTER 2017-02-04 18:59 | Emergency (ER) | payer MEDICARE, MEDICAID ==
[~2017-02-04] VITALS: Ht 162.6 cm; Wt 115.0 kg
[2017-02-04 19:07] VITALS: BP 111/80; PULSE 148; RESP 20; TEMP 98; O2SAT 90
[2017-02-04 19:09] VITALS: PULSE 114
[2017-02-04 19:25] VITALS: BP 111/80; PULSE 114; RESP 20; TEMP 98.2; O2SAT 98
[2017-02-04] MEDS ORDERED: DILTIAZEM HCL 25 MG/5 ML VIAL IV PUSH ONE (19:30)
[2017-02-04] MEDS ORDERED: SODIUM CHLORIDE 0.9% FLUSH 10 ML FLUSH IVF PRN (19:30)
[2017-02-04] MEDS ORDERED: DILTIAZEM INJ 125 MG in SODIUM CHLORIDE 0.9% INJ 100 ML IV PRN (19:30)
[2017-02-04 19:58] VITALS: RESP 20
[2017-02-04 20:14] VITALS: BP 132/59; PULSE 103; RESP 18; O2SAT 100
[2017-02-04 20:19] LABS: AUTOMATED NEUTROPHIL # 7.5 TH/MM3 (1.8-7.7); BASOPHIL % 0.5 % (0.0-2.0); EOSINOPHIL # 0.1 TH/MM3 (0-0.4); EOSINOPHIL % 0.6 % (0.0-4.0); HEMATOCRIT 38.9 % (35.0-46.0); HEMOGLOBIN 13.2 GM/DL (11.6-15.3); LYMPHOCYTE # 1.5 TH/MM3 (1.0-4.8); MEAN CELL VOLUME 88.6 FL (80.0-100.0); MEAN CORPUSCULAR HGB CONC 33.8 % (32.0-36.0); MEAN PLATELET VOLUME 7.7 FL (7.0-11.0); MONO % 5.2 % (0.0-8.0); MONOCYTE # 0.5 TH/MM3 (0-0.9); NEUT % 77.7 % (16.0-70.0); PLATELET COUNT 312 TH/MM3 (150-450); RED BLOOD COUNT 4.39 MIL/MM3 (4.00-5.30); RED CELL DISTRIBUTION WIDTH 17.6 % (11.6-17.2); WHITE BLOOD COUNT 9.7 TH/MM3 (4.0-11.0)
--- NOTE | 2017-02-04 20:31 | RADRPT ---
EXAM DATE/TIME: 02/04/2017 19:48 [facility] COMPARISON: CHEST SINGLE AP, November 22, 2016, 22:23. INDICATIONS : Rapid heart rate today. Short of breath. MEDICAL HISTORY : Chronic obstructive pulmonary disease. Hypercholesterolemia. Congestive heart failure. A-fib, Hyperte nsion, Diabetes, GERD. SURGICAL HISTORY : Tonsillectomy. Pacemaker. CABG. Ablations. Internal defibrillator. ENCOUNTER: Initial ACUITY: 1 day PAIN SCORE: 2/10 LOCATION: Bilateral chest FINDINGS: Stable median sternotomy and AICD devise. Redemonstration of elevation of left hemidiaphragm with lef t basilar atelectasis. Right lung is clear. Axilla is enlarged. Remainder of the exam is unchanged. CONCLUSION: 1. Compensated cardiomegaly. 2. Persistent elevation of the left hemidiaphragm with probable left basilar atelectasis. Sonu Esparza MD on February 04, 2017 at 20:28 Board Certified Radiologist. This report was verified electronically.
[2017-02-04 20:34] LABS: INTERNATIONAL NORMALIZED RATIO 2.3 RATIO; PROTHROMBIN TIME - PATIENT 23.3 SEC (9.8-11.6)
[2017-02-04 20:37] LABS: ALBUMIN 3.3 GM/DL (3.4-5.0); AST (GOT) 19 U/L (15-37); BICARBONATE 23.8 MEQ/L (21.0-32.0); BLOOD UREA NITROGEN 25 MG/DL (7-18); CALCIUM 9.1 MG/DL (8.5-10.1); CHLORIDE 109 MEQ/L (98-107); GLOMERULAR FILTRATION RATE 46 ML/MIN (>89); GLUCOSE,RANDOM 113 MG/DL (74-106); MAGNESIUM 1.8 MG/DL (1.5-2.5); SODIUM (NA) 141 MEQ/L (136-145)
[2017-02-04 20:38] LABS: ALT (GPT) 17 U/L (10-53)
[2017-02-04 20:47] LABS: ALKALINE PHOSPHATASE 91 U/L (45-117); TOTAL BILIRUBIN ADULT 0.5 MG/DL (0.2-1.0); TOTAL PROTEIN 7.5 GM/DL (6.4-8.2); TROPONIN I LESS THAN 0.02 NG/ML (0.02-0.05)
[2017-02-04] MEDS ORDERED: METF500T PO (20:48)
[2017-02-04 21:56] VITALS: BP 121/69; PULSE 89; RESP 18; O2SAT 99
--- NOTE | 2017-02-04 22:18 | PD ---
HPI Chief Complaint: Cardiac Complaint Time Seen by Provider: 19:17 Travel History International Travel<30 days: No Contact w/Intl Traveler<30days: No Traveled to known affect area: No History of Present Illness HPI This 61-year-old woman who presents to the emergency department complaining of shortness of breath and increased heart rate ongoing for the past week or so. Symptoms became progressively worse and so she came to the emergency department today. No aggravating or alleviating factors. No other associated symptoms. She extensive medical history including A. fib, CAD, CHF, rheumatoid arthritis, DVT, hyperlipidemia. History Past Medical History Narrative Medical A. fib, on amiodarone, history of multiple ablations CAD, [place], CABG in CHF, on spironolactone, Bumex Rheumatoid arthritis, on prednisone, 10 mg daily Hyperlipidemia Hypothyroidism History of DVT in 2016 Polycystic kidney disease COPD Influenza Vaccination: Yes Menopausal: Yes : 5 Para: 5 Social History Alcohol Use: No Tobacco Use: No Allergies-Medications (Allergen,Severity, Reaction): Coded Allergies: azithromycin (Unverified Allergy, Severe, 02/04/17) CAN NOT TAKE DUE TO STUDY MED cyclosporine (Unverified Allergy, Severe, 02/04/17) CAN NOT TAKE DUE TO STUDY MEDS erythromycin base (Unverified Allergy, Severe, 02/04/17) CAN NOT TAKE DUE TO STUDY MEDS vancomycin (Unverified Allergy, Severe, FACIAL SWELLING, 02/04/17) levofloxacin (Unverified Allergy, Mild, ITCHING, 02/04/17) *MDRO Multi-Drug Resistant Organism (Unverified Adverse Reaction, Unknown , 02/04/17) MRSA PCR Screen negative 09/01/14. Reported Meds & Prescriptions Reported Meds & Active Scripts Active Reported [place] (Hydrocodone-Acetaminophen) 5-325 mg Tab 1 Tab PO Q6H PRN Proair Hfa 8.5 GM Inh (Albuterol Sulfate) 90 Mcg/Act Aer 2 Puff INH Q4-6H PRN 108 mcg/actuation Bumetanide 1 Mg Tab 1 Mg PO DAILY Venlafaxine ER 24 HR (Venlafaxine HCl) 75 Mg Tab 75 Mg PO DAILY Synthroid (Levothyroxine Sodium) 100 Mcg Tab 200 Mcg PO DAILY Amiodarone (Amiodarone HCl) 200 Mg Tab 200 Mg PO DAILY Spironolactone 25 Mg Tab 12.5 Mg PO DAILY Warfarin 5 Mg Tab 5.5 Mg PO DAILY Atorvastatin (Atorvastatin Calcium) 40 Mg Tab 40 Mg PO HS Omeprazole 20 Mg Tab 20 Mg PO DAILY Prednisone 5 Mg Tab 5 Mg PO BID Metoprolol Tartrate 50 Mg Tab 50 Mg PO BID Isosorbide Mononitrate ER (Isosorbide Mononitrate) 30 Mg Nancy 30 Mg PO DAILY Review of Systems Except as stated in HPI: all other systems reviewed are Neg Physical Exam Narrative GENERAL: Well-appearing 61 year-old woman, mild respiratory distress. SKIN: Focused skin assessment warm/dry. HEAD: Atraumatic. Normocephalic. EYES: Pupils equal and round. No scleral icterus. No injection or drainage. ENT: No nasal bleeding or discharge. Mucous membranes pink and moist. NECK: Trachea midline. No JVD. RESPIRATORY: Moderate distress. Coarse breath sounds in the bases. Good air movement. CARDIOVASCULAR: Rapid irregular heart rate. Perfusion the little bit diminished in the lower extremities. No appreciable murmurs. GASTROINTESTINAL: Abdomen soft, non-tender, nondistended. Hepatic and splenic margins not palpable. MUSCULOSKELETAL: No obvious deformities. No edema. Mottling in the lower extremities. NEUROLOGICAL: Awake and alert. No obvious cranial nerve deficits. Motor grossly within normal limits. Normal speech. PSYCHIATRIC: Appropriate mood and affect; insight and judgment normal. Data Data Last Documented VS Vital Signs Date Time Temp Pulse Resp B/P (MAP) Pulse Ox O2 Delivery O2 Flow Rate FiO2 02/04/17 21:56 89 18 121/69 (86) 99 Room Air 02/04/17 20:14 2.00 02/04/17 19:25 98.2 Orders Orders Complete Blood Count With Diff (02/04/17 19:27) Comprehensive Metabolic Panel (02/04/17 19:27) B-Type Natriuretic Peptide (02/04/17 19:27) Act Partial Throm Time (Ptt) (02/04/17 19:27) Prothrombin Time / Inr (Pt) (02/04/17 19:27) Magnesium (Mg) (02/04/17 19:27) Troponin I (02/04/17 19:27) Influenzae A/B Antigen (02/04/17 19:27) Iv Access Insert/Monitor (02/04/17 19:27) Ecg Monitoring (02/04/17 19:27) Oximetry (02/04/17 19:27) Oxygen Administration (02/04/17 19:27) Chest, Single Ap (02/04/17 19:27) Sodium Chloride 0.9% Flush (Ns Flush) (02/04/17 19:30) Vital Signs (Adult) Q15MX4,Q4H (02/04/17 19:27) Bench Examiner / Telemetry ELIEL.Q8H (02/04/17 19:27) Cardiac Rhythm ELIEL.Q8H (02/04/17 19:27) Notify Dr: Other (02/04/17 19:27) Diltiazem Inj (Cardizem Inj) (02/04/17 19:30) Diltiazem Inj (Cardizem Inj) (02/04/17 19:30) Type And Screen (02/04/17 19:30) Electrocardiogram (02/04/17 ) Labs Laboratory Tests Test 02/04/17 20:00 White Blood Count 9.7 TH/MM3 Red Blood Count 4.39 MIL/MM3 Hemoglobin 13.2 GM/DL Hematocrit 38.9 % Mean Corpuscular Volume 88.6 FL Mean Corpuscular Hemoglobin 30.0 PG Mean Corpuscular Hemoglobin Concent 33.8 % Red Cell Distribution Width 17.6 % Platelet Count 312 TH/MM3 Mean Platelet Volume 7.7 FL Neutrophils (%) (Auto) 77.7 % Lymphocytes (%) (Auto) 16.0 % Monocytes (%) (Auto) 5.2 % Eosinophils (%) (Auto) 0.6 % Basophils (%) (Auto) 0.5 % Neutrophils # (Auto) 7.5 TH/MM3 Lymphocytes # (Auto) 1.5 TH/MM3 Monocytes # (Auto) 0.5 TH/MM3 Eosinophils # (Auto) 0.1 TH/MM3 Basophils # (Auto) 0.0 TH/MM3 CBC Comment DIFF FINAL Differential Comment Prothrombin Time 23.3 SEC Prothromb Time International Ratio 2.3 RATIO Activated Partial Thromboplast Time 32.4 SEC Blood Urea Nitrogen 25 MG/DL Creatinine 1.20 MG/DL Random Glucose 113 MG/DL Total Protein 7.5 GM/DL Albumin 3.3 GM/DL Calcium Level 9.1 MG/DL Magnesium Level 1.8 MG/DL Alkaline Phosphatase 91 U/L Aspartate Amino Transf (AST/SGOT) 19 U/L Alanine Aminotransferase (ALT/SGPT) 17 U/L Total Bilirubin 0.5 MG/DL Sodium Level 141 MEQ/L Potassium Level 4.6 MEQ/L Chloride Level 109 MEQ/L Carbon Dioxide Level 23.8 MEQ/L Anion Gap 8 MEQ/L Estimat Glomerular Filtration Rate 46 ML/MIN Troponin I LESS THAN 0.02 NG/ML B-Type Natriuretic Peptide 270 PG/ML MDM Medical Decision Making Medical Screen Exam Complete: Yes Emergency Medical Condition: Yes Interpretation(s) My review of EKG: A. fib, rate of 141, afford axis, some lateral ST depressions , no definite evidence of acute ischemia. Repeat EKG shows ectopic atrial rhythm versus sinus rhythm. LABS: CBC is unremarkable. CMP unremarkable. BUN to creatinine 1.2/25. Troponin negative. BNP 270. Coags INR 2.3. Chest x-ray: Compensated cardiomegaly. Persistent elevation of the left hemidiaphragm. Differential Diagnosis A. fib, a flutter, volume overload, CHF, COPD, other Narrative Course Medical decision making INITIAL: 61-year-old presents emergency Department with dyspnea on exertion and shortness of breath, found to be in A. fib RVR, resolved with IV diltiazem. Patient feeling much improved. At this point recommend outpatient follow-up with her purchase request editor and her primary physician. Diagnosis Primary Impression: Atrial fibrillation with RVR Additional Instructions: Continue current medications. Follow-up with her purchase request editor and primary physician tomorrow morning. Return to the emergency department for any new or worsening symptoms. Med/Other Pt SpecificInfo: No Change to Meds Disposition: 01 DISCHARGE HOME Condition: Stable Jimenez Shetty MD Feb 04, 2017 22:18
--- NOTE | 2017-02-05 22:50 | EKG ---
Date Performed: 02/04/2017 Time Performed: 22:25:37 PTAGE: 61 years EKG: ECTOPIC ATRIAL RHYTHM WITH FIRST DEGREE AV BLOCK WITH OCCASIONAL SUPRAVENTRICULAR PREMATURE COMPLEXES MINIMAL VOLTAGE CRITERIA FOR LVH, CONSIDER NORMAL VARIANT NONSPECIFIC ST & T-WAVE ABNORMAL ITY ABNORMAL ECG PREVIOUS TRACING : 11/23/2016 06.07 DOCTOR: Brendon Maharaj Interpretating Date/Time 02/05/2017 22:49:09
== END 2017-02-04 23:12 | disposition home or self-care (01) ==
LOC: NEPC 18:59
DX: I48.91 Unspecified atrial fibrillation (principal); E03.9 Hypothyroidism, unspecified; E78.5 Hyperlipidemia, unspecified; M06.9 Rheumatoid arthritis, unspecified; I25.10 Atherosclerotic heart disease of native coronary artery without angina pectoris; I11.0 Hypertensive heart disease with heart failure; I50.9 Heart failure, unspecified; Q61.3 Polycystic kidney, unspecified; J44.9 Chronic obstructive pulmonary disease, unspecified; Z79.01 Long term (current) use of anticoagulants
CPT/HCPCS: 71010; 80053; 83735; 83880; 84484; 85025; 85610; 85730; 86850; 86900; 86901; 87804; 93005; 96374; 96375

== ENCOUNTER 2017-02-22 04:37 | Inpatient (IN) | payer MEDICARE, MEDICAID ==
[~2017-02-22] VITALS: Ht 172.7 cm; Wt 160.7 kg
[2017-02-22] VITALS (10 sets, daily range): BP systolic 97–155; BP diastolic 57–108; PULSE 76–86; RESP 16–26; TEMP 97.9–98.2; O2SAT 93–98
[2017-02-22] MEDS ORDERED: ONDANSETRON HCL 4 MG/2 ML VIAL ONE (04:44)
[2017-02-22] MEDS ORDERED: ONDANSETRON HCL 4 MG/2 ML VIAL IV PUSH ONE (04:45)
[2017-02-22] MEDS ORDERED: SODIUM CHLORIDE 0.9% FLUSH 10 ML FLUSH IVF PRN (04:45)
[2017-02-22 05:13] LABS: AUTOMATED NEUTROPHIL # 8.1 TH/MM3 (1.8-7.7); BASOPHIL # 0.1 TH/MM3 (0-0.2); BASOPHIL % 0.7 % (0.0-2.0); EOSINOPHIL # 0.1 TH/MM3 (0-0.4); EOSINOPHIL % 1.1 % (0.0-4.0); HEMATOCRIT 39.8 % (35.0-46.0); HEMOGLOBIN 13.4 GM/DL (11.6-15.3); LYMPHOCYTE # 1.5 TH/MM3 (1.0-4.8); MEAN CELL VOLUME 89.8 FL (80.0-100.0); MEAN CORPUSCULAR HEMOGLOBIN 30.1 PG (27.0-34.0); MEAN CORPUSCULAR HGB CONC 33.6 % (32.0-36.0); MEAN PLATELET VOLUME 7.1 FL (7.0-11.0); NEUT % 75.2 % (16.0-70.0); PLATELET COUNT 271 TH/MM3 (150-450); RED BLOOD COUNT 4.43 MIL/MM3 (4.00-5.30); RED CELL DISTRIBUTION WIDTH 17.3 % (11.6-17.2); WHITE BLOOD COUNT 10.8 TH/MM3 (4.0-11.0)
[2017-02-22] MEDS ORDERED: SACU1TAB4 PO (05:20)
[2017-02-22] MEDS ORDERED: ALPR.25 PO (05:20)
[2017-02-22 05:30] LABS: ALBUMIN 3.8 GM/DL (3.4-5.0); ALT (GPT) 19 U/L (10-53); AST (GOT) 15 U/L (15-37); BICARBONATE 28.7 MEQ/L (21.0-32.0); BLOOD UREA NITROGEN 19 MG/DL (7-18); CALCIUM 8.6 MG/DL (8.5-10.1); CHLORIDE 109 MEQ/L (98-107); CREATININE 0.87 MG/DL (0.50-1.00); GLOMERULAR FILTRATION RATE 66 ML/MIN (>89); GLUCOSE,RANDOM 91 MG/DL (74-106); LIPASE 152 U/L (73-393); MAGNESIUM 2.1 MG/DL (1.5-2.5); SODIUM (NA) 144 MEQ/L (136-145)
[2017-02-22 05:35] LABS: ALKALINE PHOSPHATASE 104 U/L (45-117); TOTAL BILIRUBIN ADULT 0.4 MG/DL (0.2-1.0); TOTAL PROTEIN 8.1 GM/DL (6.4-8.2); TROPONIN I LESS THAN 0.02 NG/ML (0.02-0.05)
--- NOTE | 2017-02-22 05:47 | RADRPT ---
EXAM DATE/TIME: 02/22/2017 04:52 [facility] COMPARISON: CHEST SINGLE AP, February 04, 2017, 19:48. INDICATIONS : Weakness and light headed MEDICAL HISTORY : RA SURGICAL HISTORY : Pacemaker. Quadruple bypass ENCOUNTER: Initial ACUITY: 1 day PAIN SCORE: 8/10 LOCATION: Bilateral chest FINDINGS: The right lung remains grossly clear. Heart size is diffusely enlarged but stable. There continues to be elevation of the left hemidiaphragm with atelectasis in the left lower lung. These findings are s table compared to the prior study. There is evidence of previous cardiothoracic surgery. No pneumotho rax. Left-sided pacemaker. CONCLUSION: No significant interval change compared to the prior exam. Billy Weems MD on February 22, 2017 at 5:44 Board Certified Radiologist. This report was verified electronically.
[2017-02-22 06:05] LABS: INTERNATIONAL NORMALIZED RATIO 1.8 RATIO; PROTHROMBIN TIME - PATIENT 18.6 SEC (9.8-11.6)
[2017-02-22] MEDS ORDERED: IOHEXOL 350 MG/ML 10 ML VIAL (for RAD DIAG) IVCONTRAST ONE (06:56)
--- NOTE | 2017-02-22 06:56 | RADRPT ---
EXAM DATE/TIME: 02/22/2017 06:25 [facility] COMPARISON: CT BRAIN W/O CONTRAST, September 01, 2014, 15:17. INDICATIONS : Dizziness. RADIATION DOSE: 56.35 CTDIvol (mGy) MEDICAL HISTORY : Cardiovascular disease. Hypertension. SURGICAL HISTORY : CABG ENCOUNTER: Initial ACUITY: 1 day PAIN SCALE: 0/10 LOCATION: cranial TECHNIQUE: Multiple contiguous axial images were obtained of the head. Using automated exposure control and adj ustment of the mA and/or kV according to patient size, radiation dose was kept as low as reasonably a chievable to obtain optimal diagnostic quality images. DICOM format image data is available electro nically for review and comparison. FINDINGS: CEREBRUM: The ventricles are normal for age. No evidence of midline shift, mass lesion, hemorrhage or acute in farction. No extra-axial fluid collections are seen. POSTERIOR FOSSA: The cerebellum and brainstem are intact. The 4th ventricle is midline. The cerebellopontine angle i s unremarkable. EXTRACRANIAL: The visualized portion of the orbits is intact. SKULL: The calvaria is intact. No evidence of skull fracture. CONCLUSION: Normal examination for a patient of this age. No significant change has occurred. Billy Weems MD on February 22, 2017 at 6:53 Board Certified Radiologist. This report was verified electronically.
--- NOTE | 2017-02-22 07:31 | PD ---
HPI . Generalized weakness Chief Complaint: General Weakness Time Seen by Provider: 04:44 Travel History International Travel<30 days: No Contact w/Intl Traveler<30days: No Traveled to known affect area: No History of Present Illness HPI 61-year-old female presents from home with generalized weakness, feels like she can't sit up well and feels faint. Patient denies any other focal symptoms including headache visual changes, unilateral weakness, incontinence. Patient also denies fever chills sweats, cough, shortness of breath. Patient denies any dysuria frequency frequency. No upper respiratory type symptoms, and denies body aches or chills. PFSH Past Medical History Narrative Medical Past medical history reviewed Hx Anticoagulant Therapy: Yes Arthritis: Yes (HIPS AND LEFT KNEE) Asthma: No Atrial Fibrillation: Yes Autoimmune Disease: Yes (RA) Blood Disorders: No Anxiety: Yes Depression: No Heart Rhythm Problems: Yes (AFIB) Cancer: Yes (POSSIBLE RIGHT BREAST - NEEDS BIOPSY) Cardiac Catheterization: Yes Cardiovascular Problems: Yes (pacemaker, quadrouple bypass ) High Cholesterol: Yes Chemotherapy: No Chest Pain: Yes Congestive Heart Failure: Yes COPD: Yes Cerebrovascular Accident: No Coronary Artery Disease: Yes Diabetes: Yes (TYPE 2) Patient Takes Glucophage: No Diminished Hearing: No Endocrine: Yes Gastrointestinal Disorders: No GERD: Yes Glaucoma: No Genitourinary: Yes ("Polycystic kidneys") Headaches: No Hepatitis: No Hiatal Hernia: No Hypertension: Yes Immune Disorder: No Implanted Vascular Access Dvce: Yes Kidney Stones: No Respiratory: Yes (O2 AT HOME WHEN NEEDED) Integumentary: Yes (H/O MRSA) Immunizations Current: No Migraines: No Myocardial Infarction: Yes (X 2) Radiation Therapy: No Renal Failure: No Seizures: No Sickle Cell Disease: No Sleep Apnea: No Thyroid Disease: Yes Ulcer: No ?: Not Menopausal: Yes : 5 Para: 5 Tubal Ligation: Yes (1982) Past Surgical History Abdominal Surgery: Yes AICD: Yes (GUIDANT: ICD T125/290626, LEAD [id number], LEAD [id number]) Appendectomy: No Arteriovenous Shunt: No Body Medical Devices: PACER/DEFIB Cardiac Surgery: Yes (Ablation X4, PM, AICD) Cholecystectomy: No Coronary Artery Bypass Graft: Yes (2006) Ear Surgery: No Endocrine Surgery: No Eye Surgery: No Genitourinary Surgery: No Gynecologic Surgery: No Insulin Pump: No Joint Replacement: No Neurologic Surgery: No Oral Surgery: No Pacemaker: Yes (09/23/06--"PACEMAKER AND DEFIBRILLATOR" [place]) Thoracic Surgery: No Tonsillectomy: Yes Other Surgery: Yes Family History Family Myocardial Infarction: Yes (father ) Social History Alcohol Use: No Tobacco Use: No Substance Use: No Allergies-Medications (Allergen,Severity, Reaction): Coded Allergies: azithromycin (Unverified Allergy, Severe, 02/04/17) CAN NOT TAKE DUE TO STUDY MED cyclosporine (Unverified Allergy, Severe, 02/04/17) CAN NOT TAKE DUE TO STUDY MEDS erythromycin base (Unverified Allergy, Severe, 02/04/17) CAN NOT TAKE DUE TO STUDY MEDS vancomycin (Unverified Allergy, Severe, FACIAL SWELLING, 02/04/17) levofloxacin (Unverified Allergy, Mild, ITCHING, 02/04/17) *MDRO Multi-Drug Resistant Organism (Unverified Adverse Reaction, Unknown , 02/04/17) MRSA PCR Screen negative 09/01/14. Reported Meds & Prescriptions Reported Meds & Active Scripts Active Reported Xanax (Alprazolam) 0.25 Mg Tab 0.25 Mg PO Q6H PRN Entresto (Sacubitril-Valsartan) 97-103 Mg Tab 1 Tab PO DAILY [place] (Hydrocodone-Acetaminophen) 5-325 mg Tab 1 Tab PO Q6H PRN Proair Hfa 8.5 GM Inh (Albuterol Sulfate) 90 Mcg/Act Aer 2 Puff INH Q4-6H PRN 108 mcg/actuation Bumetanide 1 Mg Tab 1 Mg PO DAILY Venlafaxine ER 24 HR (Venlafaxine HCl) 75 Mg Tab 75 Mg PO DAILY Synthroid (Levothyroxine Sodium) 100 Mcg Tab 200 Mcg PO DAILY Amiodarone (Amiodarone HCl) 200 Mg Tab 200 Mg PO DAILY Spironolactone 25 Mg Tab 12.5 Mg PO DAILY Warfarin 5 Mg Tab 5.5 Mg PO DAILY Atorvastatin (Atorvastatin Calcium) 40 Mg Tab 40 Mg PO HS Omeprazole 20 Mg Tab 20 Mg PO DAILY Prednisone 5 Mg Tab 5 Mg PO BID Metoprolol Tartrate 50 Mg Tab 50 Mg PO BID Isosorbide Mononitrate ER (Isosorbide Mononitrate) 30 Mg Nancy 30 Mg PO DAILY Narrative Medication Allergies and medications reviewed Review of Systems Except as stated in HPI: all other systems reviewed are Neg General / Constitutional: No: Fever Eyes: No: Visual changes HENT: No: Headaches Cardiovascular: No: Chest Pain or Discomfort Respiratory: No: Shortness of Breath Gastrointestinal: No: Abdominal Pain Genitourinary: No: Dysuria Musculoskeletal: No: Pain Skin: No Rash Neurologic: No: Weakness Psychiatric: No: Depression Endocrine: No: Polydipsia Hematologic/Lymphatic: No: Easy Bruising Physical Exam Narrative GENERAL: Awake and alert, oriented 3, no acute distress. Vital signs afebrile normal and stable. Patient is morbidly obese SKIN: Warm and dry. Color is normal diaphoresis cyanosis or pallor HEAD: Atraumatic. Normocephalic. EYES: Pupils equal and round. No scleral icterus. No injection or drainage. ENT: No nasal bleeding or discharge. Mucous membranes pink and moist. NECK: Trachea midline. No JVD. Supple nontender full range of motion CARDIOVASCULAR: Regular rate and rhythm. S1-S2 no murmurs rubs or gallops RESPIRATORY: No accessory muscle use. Clear to auscultation. Breath sounds equal bilaterally. GASTROINTESTINAL: Abdomen soft, non-tender, nondistended. Hepatic and splenic margins not palpable. MUSCULOSKELETAL: Extremities without clubbing, cyanosis, or edema. No obvious deformities. NEUROLOGICAL: Awake and alert. No obvious gross deficits. Patient's exam changes and appears to be effort dependent. Patient has possibly complaint of right sided weakness versus left, but is witnessed use right hand easily by examiner and staff multiple occasions. Difficult exam PSYCHIATRIC: Appropriate mood and affect; insight and judgment normal. Data Data Last Documented VS Vital Signs Date Time Temp Pulse Resp B/P (MAP) Pulse Ox O2 Delivery O2 Flow Rate FiO2 02/22/17 05:15 80 26 129/79 (96) 96 02/22/17 04:51 Room Air 02/22/17 04:41 98.2 Orders Orders Ondansetron Inj (Zofran Inj) (02/22/17 04:44) Electrocardiogram (02/22/17 04:44) B-Type Natriuretic Peptide (02/22/17 04:44) Ckmb (Isoenzyme) Profile (02/22/17 04:44) Complete Blood Count With Diff (02/22/17 04:44) Comprehensive Metabolic Panel (02/22/17 04:44) Magnesium (Mg) (02/22/17 04:44) Prothrombin Time / Inr (Pt) (02/22/17 04:44) Act Partial Throm Time (Ptt) (02/22/17 04:44) Troponin I (02/22/17 04:44) Lipase (02/22/17 04:44) Chest, Single Ap (02/22/17 04:44) Ecg Monitoring (02/22/17 04:44) Bilateral Bp Monitoring (02/22/17 04:44) Iv Access Insert/Monitor (02/22/17 04:44) Oximetry (02/22/17 04:44) Oxygen Administration (02/22/17 04:44) Sodium Chloride 0.9% Flush (Ns Flush) (02/22/17 04:45) Ondansetron Inj (Zofran Inj) (02/22/17 04:45) Ct Brain W/O Iv Contrast(Rout) (02/22/17 ) Cta Brain W Iv Contrast W 3d (02/22/17 ) Cta Neck W Iv Contrast W 3d (02/22/17 ) Iohexol 350 Inj (Omnipaque 350 Inj) (02/22/17 06:56) Labs Laboratory Tests Test 02/22/17 04:50 White Blood Count 10.8 TH/MM3 Red Blood Count 4.43 MIL/MM3 Hemoglobin 13.4 GM/DL Hematocrit 39.8 % Mean Corpuscular Volume 89.8 FL Mean Corpuscular Hemoglobin 30.1 PG Mean Corpuscular Hemoglobin Concent 33.6 % Red Cell Distribution Width 17.3 % Platelet Count 271 TH/MM3 Mean Platelet Volume 7.1 FL Neutrophils (%) (Auto) 75.2 % Lymphocytes (%) (Auto) 14.0 % Monocytes (%) (Auto) 9.0 % Eosinophils (%) (Auto) 1.1 % Basophils (%) (Auto) 0.7 % Neutrophils # (Auto) 8.1 TH/MM3 Lymphocytes # (Auto) 1.5 TH/MM3 Monocytes # (Auto) 1.0 TH/MM3 Eosinophils # (Auto) 0.1 TH/MM3 Basophils # (Auto) 0.1 TH/MM3 CBC Comment DIFF FINAL Differential Comment Prothrombin Time 18.6 SEC Prothromb Time International Ratio 1.8 RATIO Activated Partial Thromboplast Time 29.2 SEC Blood Urea Nitrogen 19 MG/DL Creatinine 0.87 MG/DL Random Glucose 91 MG/DL Total Protein 8.1 GM/DL Albumin 3.8 GM/DL Calcium Level 8.6 MG/DL Magnesium Level 2.1 MG/DL Alkaline Phosphatase 104 U/L Aspartate Amino Transf (AST/SGOT) 15 U/L Alanine Aminotransferase (ALT/SGPT) 19 U/L Total Bilirubin 0.4 MG/DL Sodium Level 144 MEQ/L Potassium Level 4.0 MEQ/L Chloride Level 109 MEQ/L Carbon Dioxide Level 28.7 MEQ/L Anion Gap 6 MEQ/L Estimat Glomerular Filtration Rate 66 ML/MIN Total Creatine Kinase 34 U/L Troponin I LESS THAN 0.02 NG/ML B-Type Natriuretic Peptide 78 PG/ML Lipase 152 U/L MDM Medical Decision Making Medical Screen Exam Complete: Yes Emergency Medical Condition: Yes Medical Record Reviewed: Yes Differential Diagnosis Weakness, generalized weakness, CVA versus TIA Narrative Course Patient's laboratory examinations reviewed. No significant abnormalities. CAT scan head Radiology negative. Awaiting CTA head and neck. Case discussed with neurology Dr. Antunez, will consult on patient. Serial exams performed by examiner and staff, please see history of present illness above. Care plan developed with neurology. Observation admission, serial exams, possible MRI MRA. Diagnosis Primary Impression: TIA (transient ischemic attack) Qualified Codes: G45.9 - Transient cerebral ischemic attack, unspecified Additional Impression: Weakness generalized Admitting Information Admitting Physician Requests: Observation Umair Owens MD Feb 22, 2017 07:31
--- NOTE | 2017-02-22 07:56 | RADRPT ---
EXAM DATE/TIME: 02/22/2017 06:25 [facility] COMPARISON: CTA CAROTID ARTERIES W 3D RECON, February 22, 2017, 6:25. INDICATIONS : Lightheaded, weakness, evaluate for stroke. IV CONTRAST: 100 cc Omnipaque 350 (iohexol) IV ; Cumulative dose for multiple exams. RADIATION DOSE: 69.15 CTDIvol (mGy) ; Combined studies MEDICAL HISTORY : Cardiovascular disease. Hypertension. Chronic obstructive pulmonary disease. SURGICAL HISTORY : CABG Pacemaker. ENCOUNTER: Initial ACUITY: 1 day PAIN SCALE: 0/10 LOCATION: cranial TECHNIQUE: Volumetric scanning was performed using a multi-row detector CT scanner. The data was post processed with a variety of visualization algorithms including full volume maximum intensity projection, multi -planar sliding thin slab reformation, curved planar reformation, and surface rendering techniques. Using automated exposure control and adjustment of the mA and/or kV according to patient size, radiat ion dose was kept as low as reasonably achievable to obtain optimal diagnostic quality images. DICO M format image data is available electronically for review and comparison. FINDINGS: Attenuation of the P1 segment of the left posterior cerebral artery. The left HEAD IRRIGATOR is fed by a patent posterior communicating artery. No evidence of proximal occlusion, high-grade stenosis or aneurysm of the major intracranial vessels. CONCLUSION: No evidence of proximal high-grade stenosis or occlusion. Gurdeep Laird MD on February 22, 2017 at 7:45 Board Certified Radiologist. This report was verified electronically.
--- NOTE | 2017-02-22 08:13 | RADRPT ---
EXAM DATE/TIME: 02/22/2017 06:25 [facility] COMPARISON: No previous studies available for comparison. INDICATIONS : Lightheaded, weakness, marylin;uate for stroke. IV CONTRAST: 100 cc Omnipaque 350 (iohexol) IV ; Cumulative dose for multiple exams. RADIATION DOSE: 69.15 CTDIvol (mGy) ; Combined studies MEDICAL HISTORY : Cardiovascular disease. Hypertension. Chronic obstructive pulmonary disease. SURGICAL HISTORY : CABG Pacemaker. ENCOUNTER: Initial ACUITY: 1 day PAIN SCALE: 0/10 LOCATION: neck Elevated flow velocities and ICA/CCA ratios have been found to correlate with increased degrees of vessel stenosis, calculated as percentage of diameter relative to a normal segment of distal ICA/CCA. TECHNIQUE: Volumetric scanning was performed using a multirow detector CT scanner. The data was post processed with a variety of visualization algorithms including full-volume maximum intensity projection, multip lanar sliding thin-slab reformation, curved-planar reformation, and surface-rendering techniques. Us ing automated exposure control and adjustment of the mA and/or kV according to patient size, radiatio n dose was kept as low as reasonably achievable to obtain optimal diagnostic quality images. DICOM f ormat image data is available electronically for review and comparison. FINDINGS: AORTIC ARCH: There is a three-vessel origin of the great vessels from the aorta. Calcified plaque of the proximal left common carotid artery with moderate grade stenosis at the origin. Calcified plaque also seen at the origin of the left subclavian artery but no evidence of significant stenosis. RIGHT CAROTID: Tortuous common carotid artery is noted. The carotid bifurcation is seen medially in a retropharyngea l location. There is prominent calcified plaque at the carotid bulb resulting in focal approximately 70% stenosis at the origin of the ICA external carotid artery is patent. Remaining ICA is patent.. LEFT CAROTID: Tortuous common carotid artery. Prominent calcified plaque at the carotid bulb resulting in approxima tely 40-50% stenosis from its origin to 1 cm distal to its origin. External carotid artery is patent. Remaining internal carotid artery widely patent. VERTEBRALS: The vertebral arteries have a symmetric diameter. No stenotic lesions are seen. Left lung atelectasis versus consolidation partially visualized. CONCLUSION: 1. Prominent atherosclerotic disease at carotid bulbs resulting in approximately 70% stenosis of the proximal right ICA at its origin and approximately 40-50% stenosis of the proximal left ICA. 2. Moderate grade stenosis of the proximal left common carotid artery at its origin. Gurdeep Laird MD on February 22, 2017 at 7:54 Board Certified Radiologist. This report was verified electronically.
[2017-02-22] MEDS ORDERED: GLUCAGON 1 MG/ML VIAL OTHER PRN (09:45)
[2017-02-22] MEDS ORDERED: SODIUM CHLORIDE 0.9% FLUSH 10 ML FLUSH IV FLUSH PRN (09:45)
[2017-02-22] MEDS ORDERED: HEPARIN SODIUM - SQ 10,000 UNITS/ML VIAL SQ SCH (09:45)
[2017-02-22] MEDS ORDERED: DEXTROSE 50% IN WATER 50 ML VIAL(D50) IV PUSH PRN (09:45)
--- NOTE | 2017-02-22 10:03 | HHI.HP ---
[facility] Primary Care Physician Agnes Rubio MD Admission Diagnosis Weakness, possible CVA vs TIA Diagnoses: Travel History International Travel<30 Days: No Contact w/Intl Traveler <30 Da: No Traveled to Known Affected Are: No History of Present Illness 61-year-old female with a past medical history significant for CAD status post CABG, atrial fibrillation, diabetes mellitus, polycystic kidney disease, CHF ( echo with EF of 55-60% in 2015), hypertension, hyperlipidemia and hypothyroidism presents to the emergency department complaining of dizziness and falling that began around 4 AM. She reports that when she stands she falls to the right side. She states she feels as though the room is spinning. She also had slurred speech with word finding difficulty before arriving to the emergency department per her daughter. No facial droop was noted. The patient reports she had right arm and leg weakness that is resolving. Review of Systems Denies fever or chills Denies blurry vision, otorrhea, rhinorrhea Denies sore throat and cough No chest pain, palpitations, shortness of breath No abdominal pain Denies constipation/diarrhea/nausea/vomiting Positive right sided weakness No rashes Past Family Social History Past Medical History Atrial fibrillation status post ablation 4 CAD status post CABG and DE 2 CHF with an EF of 55-60% in 2015 Hypertension Hyperlipidemia Polycystic kidney disease Hypothyroidism Past Surgical History CABG 4 in 2006 AICD placement in 2006 Ablation 4 for A. fib, V. fib BTL Tonsillectomy Reported Medications Reported Meds & Active Scripts Active Reported Xanax (Alprazolam) 0.25 Mg Tab 0.25 Mg PO Q6H PRN Entresto (Sacubitril-Valsartan) 97-103 Mg Tab 1 Tab PO DAILY [place] (Hydrocodone-Acetaminophen) 5-325 mg Tab 1 Tab PO Q6H PRN Proair Hfa 8.5 GM Inh (Albuterol Sulfate) 90 Mcg/Act Aer 2 Puff INH Q4-6H PRN 108 mcg/actuation Bumetanide 1 Mg Tab 1 Mg PO DAILY Venlafaxine ER 24 HR (Venlafaxine HCl) 75 Mg Tab 75 Mg PO DAILY Synthroid (Levothyroxine Sodium) 100 Mcg Tab 200 Mcg PO DAILY Amiodarone (Amiodarone HCl) 200 Mg Tab 200 Mg PO DAILY Spironolactone 25 Mg Tab 12.5 Mg PO DAILY Warfarin 5 Mg Tab 5.5 Mg PO DAILY Atorvastatin (Atorvastatin Calcium) 40 Mg Tab 40 Mg PO HS Omeprazole 20 Mg Tab 20 Mg PO DAILY Prednisone 5 Mg Tab 5 Mg PO BID Metoprolol Tartrate 50 Mg Tab 50 Mg PO BID Isosorbide Mononitrate ER (Isosorbide Mononitrate) 30 Mg Nancy 30 Mg PO DAILY Allergies: Coded Allergies: azithromycin (Unverified Allergy, Severe, 02/04/17) CAN NOT TAKE DUE TO STUDY MED cyclosporine (Unverified Allergy, Severe, 02/04/17) CAN NOT TAKE DUE TO STUDY MEDS erythromycin base (Unverified Allergy, Severe, 02/04/17) CAN NOT TAKE DUE TO STUDY MEDS vancomycin (Unverified Allergy, Severe, FACIAL SWELLING, 02/04/17) levofloxacin (Unverified Allergy, Mild, ITCHING, 02/04/17) *MDRO Multi-Drug Resistant Organism (Unverified Adverse Reaction, Unknown , 02/04/17) MRSA PCR Screen negative 09/01/14. Family History Father with CAD Social History Denies alcohol, tobacco or illicit drugs. Physical Exam Vital Signs Vital Signs Date Time Temp Pulse Resp B/P (MAP) Pulse Ox O2 Delivery O2 Flow Rate FiO2 02/22/17 05:15 80 26 129/79 (96) 96 02/22/17 04:51 94 Room Air 02/22/17 04:41 98.2 80 16 155/108 (124) 97 Physical Exam GENERAL: Obese female sitting up in bed SKIN: No rashes, ecchymoses or lesions. Cool and dry. HEAD: Atraumatic. Normocephalic. No temporal or scalp tenderness. EYES: Pupils equal round and reactive. Extraocular motions intact. No scleral icterus. No injection or drainage. ENT: Nose without bleeding, purulent drainage or septal hematoma. Throat without erythema, tonsillar hypertrophy or exudate. Uvula midline. Airway patent. NECK: Trachea midline. No JVD or lymphadenopathy. Supple, nontender, no meningeal signs. CARDIOVASCULAR: Regular rate and rhythm without murmurs, gallops, or rubs. RESPIRATORY: Clear to auscultation. Breath sounds equal bilaterally. No wheezes , rales, or rhonchi. GASTROINTESTINAL: Abdomen soft, non-tender, nondistended. No hepato-splenomegaly , or palpable masses. No guarding. MUSCULOSKELETAL: Extremities without clubbing, cyanosis, or edema. No joint tenderness, effusion, or edema noted. No calf tenderness. NEUROLOGICAL: Awake and alert. Cranial nerves II through XII intact. Motor and sensory within normal limits. Five out of 5 muscle strength in all muscle groups. Normal speech. Patient complains of right-sided weakness however strength tests revealed no deficits. Laboratory Laboratory Tests Test 02/22/17 04:50 White Blood Count 10.8 Red Blood Count 4.43 Hemoglobin 13.4 Hematocrit 39.8 Mean Corpuscular Volume 89.8 Mean Corpuscular Hemoglobin 30.1 Mean Corpuscular Hemoglobin Concent 33.6 Red Cell Distribution Width 17.3 Platelet Count 271 Mean Platelet Volume 7.1 Neutrophils (%) (Auto) 75.2 Lymphocytes (%) (Auto) 14.0 Monocytes (%) (Auto) 9.0 Eosinophils (%) (Auto) 1.1 Basophils (%) (Auto) 0.7 Neutrophils # (Auto) 8.1 Lymphocytes # (Auto) 1.5 Monocytes # (Auto) 1.0 Eosinophils # (Auto) 0.1 Basophils # (Auto) 0.1 CBC Comment DIFF FINAL Differential Comment Prothrombin Time 18.6 Prothromb Time International Ratio 1.8 Activated Partial Thromboplast Time 29.2 Blood Urea Nitrogen 19 Creatinine 0.87 Random Glucose 91 Total Protein 8.1 Albumin 3.8 Calcium Level 8.6 Magnesium Level 2.1 Alkaline Phosphatase 104 Aspartate Amino Transf (AST/SGOT) 15 Alanine Aminotransferase (ALT/SGPT) 19 Total Bilirubin 0.4 Sodium Level 144 Potassium Level 4.0 Chloride Level 109 Carbon Dioxide Level 28.7 Anion Gap 6 Estimat Glomerular Filtration Rate 66 Total Creatine Kinase 34 Troponin I LESS THAN 0.02 B-Type Natriuretic Peptide 78 Lipase 152 Result Diagram: 02/22/1744902/22/17449 Caprini VTE Risk Assessment Caprini VTE Risk Assessment: Mod/High Risk (score >= 2) Caprini Risk Assessment Model Point Value = 1 Point Value = 2 Point Value = 3 Point Value = 5 Age 41-60 Minor surgery BMI > 25 kg/m2 Swollen legs Varicose veins or History of unexplained or recurrent spontaneous Oral contraceptives or hormone replacement Sepsis (< 1 month) Serious lung disease, including pneumonia (< 1 month) Abnormal pulmonary function Acute myocardial infarction Congestive heart failure (< 1 month) History of inflammatory bowel disease Medical patient at bed rest Age 61-74 Arthroscopic surgery Major open surgery (> 45 min) Laparoscopic surgery (> 45 min) Malignancy Confined to bed (> 72 hours) Immobilizing plaster cast Central venous access Age >= 75 History of VTE Family history of VTE Factor V Leiden Prothrombin [id number] Lupus anticoagulant Anticardiolipin antibodies Elevated serum homocysteine Heparin-induced thrombocytopenia Other congenital or acquired thrombophilia Stroke (< 1 month) Elective arthroplasty Hip, pelvis, or leg fracture Acute spinal cord injury (< 1 month) Prophylaxis Regimen Total Risk Factor Score Risk Level Prophylaxis Regimen 0-1 Low Early ambulation 2 Moderate Order ONE of the following: *Sequential Compression Device (SCD) *Heparin 5000 units SQ BID 3-4 Higher Order ONE of the following medications: *Heparin 5000 units SQ TID *Enoxaparin/Lovenox 40 mg SQ daily (WT < 150 kg, CrCl > 30 mL/min) *Enoxaparin/Lovenox 30 mg SQ daily (WT < 150 kg, CrCl > 10-29 mL/min) *Enoxaparin/Lovenox 30 mg SQ BID (WT < 150 kg, CrCl > 30 mL/min) AND/OR *Sequential Compression Device (SCD) 5 or more Highest Order ONE of the following medications: *Heparin 5000 units SQ TID (Preferred with Epidurals) *Enoxaparin/Lovenox 40 mg SQ daily (WT < 150 kg, CrCl > 30 mL/min) *Enoxaparin/Lovenox 30 mg SQ daily (WT < 150 kg, CrCl > 10-29 mL/min) *Enoxaparin/Lovenox 30 mg SQ BID (WT < 150 kg, CrCl > 30 mL/min) AND *Sequential Compression Device (SCD) Assessment and Plan Assessment and Plan Assessment/plan: 1. Right-sided weakness/slurred speech/dizziness CT head without acute intracranial pathology Head CT without evidence of stenosis or occlusion Neck CTA showed prominent arthrosclerotic disease of the carotid bulbs resulting in approximately 70% stenosis of the proximal right ICA and a 40-50% stenosis of the left ICA Brain MRI/MRA, ECHO pending Aspirin Neurology consulted, appreciate recommendations PT consulted 2. CAD Patient status post CABG Continue home medications 3. Atrial fibrillation Paced rhythm at 80 Continue home amiodarone, metoprolol, anticoagulation with Coumadin 4. CHF Echo pending Last echo showed an EF of 55-60% in 2014 Continue home medications Monitor for signs of volume overload 5. Diabetes mellitus Holding home metformin SSI Monitor blood glucose 6. Polycystic kidney Creatinine 0.87 Monitor renal function 7. Hypertension/hyperlipidemia Continue home medications 8. Hypothyroidism Continue home Synthroid FEN Heart healthy diet after bedside swallow eval Electrolytes: monitor and replete prn Coumadin Jocelyn Grover MD Feb 22, 2017 10:03
[2017-02-22] MEDS ORDERED: PILL SPLITTER OTHER PRN (11:00)
[2017-02-22] MEDS: INSULIN ASPART SUPPLEMENTAL SCALE SQ SCH ×3 (12:00→22:07)
[2017-02-22] MEDS ORDERED: ALPRAZolam 0.25 MG TAB PO PRN (13:00)
[2017-02-22 13:34] LABS: HEMOGLOBIN A1C 5.7 % (4.3-6.0)
--- NOTE | 2017-02-22 17:04 | EKG ---
Date Performed: 02/22/2017 Time Performed: 05:12:33 PTAGE: 61 years EKG: ELECTRONIC ATRIAL PACEMAKER LVH NONSPECIFIC ST & T-WAVE ABNORMALITY Since previous tracing, no significant change noted ABNORMAL ECG PREVIOUS TRACING : 02/04/2017 22.25 DOCTOR: Bhupinder Cota Interpretating Date/Time 02/22/2017 17:04:16
[2017-02-22] MEDS: WARFARIN SOD 5 MG TAB PO SCH (18:43)
[2017-02-22] MEDS: SODIUM CHLORIDE 0.9% FLUSH 10 ML FLUSH IV FLUSH SCH (20:23)
[2017-02-22] MEDS: METOPROLOL TARTRATE 50 MG TAB PO SCH (20:24)
[2017-02-22] MEDS: predniSONE 5 MG TAB PO SCH (20:25)
[2017-02-22] MEDS: ATORVASTATIN 40 MG TAB PO SCH (20:25)
[2017-02-22] MEDS ORDERED: SACUBITRIL/VALSARTAN 97 MG-103 MG TAB PO SCH (21:00)
[2017-02-23] VITALS (11 sets, daily range): BP systolic 90–111; BP diastolic 53–68; PULSE 79–100; RESP 16–20; TEMP 97.8–98.2; O2SAT 90–97
[2017-02-23] MEDS: ACETAMINOPHEN/HYDROcodone 325 MG/5 MG TAB PO PRN (02:17)
[2017-02-23] MEDS: ISOSORBIDE MONONITRATE 30 MG TAB PO SCH (06:05)
[2017-02-23] MEDS: LEVOTHYROXINE SODIUM 200 MCG TAB PO SCH (06:05)
[2017-02-23] MEDS: INSULIN ASPART SUPPLEMENTAL SCALE SQ SCH ×4 (08:00→21:00)
[2017-02-23 08:30] LABS: AUTOMATED NEUTROPHIL # 7.1 TH/MM3 (1.8-7.7); BASOPHIL # 0.1 TH/MM3 (0-0.2); BASOPHIL % 0.8 % (0.0-2.0); EOSINOPHIL # 0.2 TH/MM3 (0-0.4); EOSINOPHIL % 1.7 % (0.0-4.0); HEMATOCRIT 38.3 % (35.0-46.0); HEMOGLOBIN 12.9 GM/DL (11.6-15.3); LYMPH % 10.5 % (9.0-44.0); LYMPHOCYTE # 0.9 TH/MM3 (1.0-4.8); MEAN CELL VOLUME 90.5 FL (80.0-100.0); MEAN CORPUSCULAR HEMOGLOBIN 30.3 PG (27.0-34.0); MEAN CORPUSCULAR HGB CONC 33.5 % (32.0-36.0); MEAN PLATELET VOLUME 7.4 FL (7.0-11.0); MONO % 7.9 % (0.0-8.0); MONOCYTE # 0.7 TH/MM3 (0-0.9); NEUT % 79.1 % (16.0-70.0); PLATELET COUNT 240 TH/MM3 (150-450); RED BLOOD COUNT 4.24 MIL/MM3 (4.00-5.30); RED CELL DISTRIBUTION WIDTH 17.6 % (11.6-17.2); WHITE BLOOD COUNT 8.9 TH/MM3 (4.0-11.0)
[2017-02-23 08:44] LABS: BICARBONATE 25.1 MEQ/L (21.0-32.0); CALCIUM 8.9 MG/DL (8.5-10.1); CREATININE 1.22 MG/DL (0.50-1.00)
[2017-02-23 08:47] LABS: CHOLESTEROL/ HDL RATIO 3.71 RATIO; HDL CHOLESTEROL 48.7 MG/DL (40.0-60.0)
[2017-02-23] MEDS ORDERED: BUMETANIDE 1 MG TAB PO SCH (09:00)
[2017-02-23] MEDS: METOPROLOL TARTRATE 50 MG TAB PO SCH ×2 (09:00→20:42)
[2017-02-23] MEDS: SPIRONOLACTONE 25 MG TAB PO SCH (09:00)
[2017-02-23] MEDS: ASPIRIN 325 MG TAB PO SCH (09:00)
[2017-02-23] MEDS: SODIUM CHLORIDE 0.9% FLUSH 10 ML FLUSH IV FLUSH SCH ×2 (09:43→21:00)
[2017-02-23] MEDS: predniSONE 5 MG TAB PO SCH ×2 (09:43→20:41)
[2017-02-23] MEDS: PANTOPRAZOLE SOD 20 MG DELAYED RELEASE TAB PO SCH (09:44)
[2017-02-23] MEDS: VENLAFAXINE HCL XR 75 MG CAP PO SCH (09:44)
--- NOTE | 2017-02-23 09:57 | MB ---
cc: TOÑO RIOS MD DATE OF CONSULTATION 02/23/2017 REASON FOR CONSULTATION Ischemic stroke. HISTORY OF PRESENT ILLNESS Ms. Bunn is a 61-year-old female with a past medical history of coronary artery disease status post CABG, atrial fibrillation, diabetes mellitus , polycystic kidney disease, congestive heart failure, hypertension, hyperlipidemia, hypothyroidism, who presents to the emergency department at [facility] because of dizziness and falls. The patient states that when she turns her head to either direction the room spins and if she sits up she falls to her back. This has happened without any headache, lightheadedness , double vision, slurred speech, weakness of an extremity or numbness of the face. She denies any history of previous episodes. She denies any history of chronic ear or sinus problem. REVIEW OF SYSTEMS A 12-point review of systems is negative except for what is stated in the HPI. PAST MEDICAL HISTORY 1. Atrial fibrillation status post ablation. 2. Coronary artery disease status post CABG. 3. History of [place]. 4. Congestive heart failure. 5. Hypertension. 6. Hyperlipidemia. 7. Polycystic kidney disease. 8. Hypothyroidism. PAST SURGICAL HISTORY 1. CABG x4. 2. AICD. 3. Ablation for atrial fibrillation. 4. Tonsillectomy. MEDICATIONS 1. Xanax. 2. Entresto. 3. [place]. 4. ProAir. 5. Bumetanide. 6. Venlafaxine. 7. Synthroid. 8. Amiodarone. 9. Spironolactone. 10.Warfarin 5 mg. 11.Atorvastatin. 12.Omeprazole. 13.Prednisone. 14.Metoprolol. 15.Isosorbide. ALLERGIES 1. AZITHROMYCIN. 2. CYCLOSPORINE. 3. ERYTHROMYCIN. 4. VANCOMYCIN, 5. LEVOFLOXACIN. FAMILY HISTORY Father with coronary artery disease. SOCIAL HISTORY Denies alcohol, tobacco or illicit drug abuse. PHYSICAL EXAMINATION GENERAL: Awake, alert, overweight, not in acute distress. HEENT: Atraumatic, normocephalic. Intact hearing. Intact vision. NECK: Supple. No signs of meningeal irritation. No carotid bruit. HEART: Regular rate and rhythm. LUNGS: Clear to auscultation. No wheezes. ABDOMEN: Soft, nontender. EXTREMITIES: No clubbing, cyanosis or edema. NEUROLOGIC: Awake, alert, oriented to time, person and place. No dysarthria. No dysphasia. No ptosis. No nystagmus. No facial asymmetry. Intact facial sensation. Cranial nerves II through XII are grossly intact. Upper and lower extremities 5/5. Normal tone. No abnormal movement. Intact sensation throughout. Reflexes 1+ bilaterally symmetrical. Plantars are bilaterally downgoing. PSYCHIATRIC: Normal mood and behavior. No hallucinations. LABORATORY - White blood cell count 8.9, hemoglobin 12.9, platelet count 240. Sodium 143, potassium 4.1, anion gap 8, BUN 27, creatinine 1.22. INR 1.8. IMAGING - Head CT scan was reported as no acute intracranial abnormality. - Head CTA: No evidence of proximal high-grade stenosis or occlusion. - Neck CTA revealed prominent atherosclerotic disease at the carotid bulbs resulting in 70% stenosis of the right ICA at its origin and approximately 40-50 % stenosis of the proximal left ICA. Moderate stenosis of the proximal left common carotid artery. DIAGNOSTIC IMPRESSION 1. Vertigo. 2. Carotid artery disease. 3. Coronary artery disease. 4. Atrial fibrillation status post ablation. 5. Diabetes mellitus. 6. Hypertension. 7. Neurologic examination is nonfocal and neurologic investigation with no evidence of acute neurologic abnormality. PLAN 1. Continue warfarin. 2. The patient cannot have an MRI because of a pacemaker. 3. Follow-up with ENT for possible etiology of vertigo 4. Follow-up with vascular surgery for evaluation and management of the right ICA. 5. No need for further neurologic work-up. 6. Neurology will sign off. Please call for questions. Thank you for the opportunity to participate in the care of your patient. MD MAXIMILIANO Roque/ZAC /8:50 AM /9:33 AM JACKIE
[2017-02-23] MEDS ORDERED: SODIUM CHLORID 0.9% 500 ML INJ 500 ML IV ONE (10:15)
[2017-02-23] MEDS ORDERED: SODIUM CHLOR 0.9% 1000 ML INJ 1,000 ML IV SCH (10:15)
[2017-02-23] MEDS: AMIODARONE 200 MG TAB PO SCH (11:00)
[2017-02-23 12:21] LABS: INTERNATIONAL NORMALIZED RATIO 1.8 RATIO; PROTHROMBIN TIME - PATIENT 18.3 SEC (9.8-11.6)
--- NOTE | 2017-02-23 15:09 | ECHRPT ---
Indication: cva/tia CONCLUSIONS Normal left ventricular size. The left ventricular systolic function is low normal with an estimated ejection fraction in the rang e of 50- 55%. Nibrc-om-kgml mitral valve regurgitation. There is mild tricuspid valve regurgitation. The estimated pulmonary arterial pressure is 35.8 mmHg. BP: / HR: Rhythm: MEASUREMENTS (Male / Female) Normal Values Technical Quality:Fair 2D ECHO LV Diastolic Diameter PLAX 4.0 cm 4.2 - 5.9 / 3.9 - 5.3 cm LV Systolic Diameter PLAX 3.1 cm IVS Diastolic Thickness 1.5 cm 0.6 - 1.0 / 0.6 - 0.9 cm LVPW Diastolic Thickness 1.0 cm 0.6 - 1.0 / 0.6 - 0.9 cm LV Relative Wall Thickness 0.6 RV Internal Dim ED PLAX 2.0 cm M-MODE Aortic Root Diameter MM 2.7 cm LA Systolic Diameter MM 3.4 cm LA Ao Ratio MM 1.3 AV Cusp Separation MM 1.6 cm DOPPLER TR Peak Velocity 254.0 cm/s TR Peak Gradient 25.8 mmHg Right Atrial Pressure 10.0 mmHg Pulmonary Artery Systolic Pressu 35.8 mmHg Right Ventricular Systolic Press 35.8 mmHg FINDINGS LEFT VENTRICLE Normal left ventricular size. The left ventricular systolic function is low normal with an estimated ejection fraction in the rang e of 50- 55%. RIGHT VENTRICLE Normal right ventricular size and systolic function. LEFT ATRIUM The left atrial size is normal. RIGHT ATRIUM The right atrial size is normal. ATRIAL SEPTUM Normal atrial septal thickness without atrial level shunting by limited color doppler interrogation. AORTA The aortic root and proximal ascending aorta are normal in size on limited imaging. MITRAL VALVE Structurally normal mitral valve. Vmokw-mo-zoso mitral valve regurgitation. AORTIC VALVE Trileaflet aortic valve. No aortic valve stenosis or regurgitation. TRICUSPID VALVE Structurally normal tricuspid valve. There is mild tricuspid valve regurgitation. The estimated pulmonary arterial pressure is 35.8 mmHg. PULMONARY VALVE No pulmonary valve regurgitation or stenosis. VESSELS The inferior vena cava is normal in size. PERICARDIUM No pericardial effusion. Alan Jenkins MD (Electronically Signed) Final Date:23 February 2017 15:08
[2017-02-23] MEDS: WARFARIN SOD 5 MG TAB PO SCH (16:41)
--- NOTE | 2017-02-23 17:36 | HHI.PR ---
Subjective Remarks Delayed entry - patient seen around 10am Follow up on patient with dizziness. Patient seen and examined. Patient reports she has not been drinking much since after Rafiq when she started a new diet. She has not been able to get up with therapy due to low BP this morning. BUN 27, Cr 1.22. Patient denies any new medical complaints. Denies any fever, chills, numbness, tingling, weakness, chest pain, nausea, vomiting, abdominal pain or shortness of breath. Objective Vitals Vital Signs Date Time Temp Pulse Resp B/P (MAP) Pulse Ox O2 Delivery O2 Flow Rate FiO2 02/23/17 15:14 97.9 80 20 111/63 (79) 97 02/23/17 15:00 Nasal Cannula 2.00 02/23/17 12:08 80 02/23/17 11:32 97.8 80 20 90 02/23/17 09:40 90/53 (65) 02/23/17 08:16 80 02/23/17 06:59 97.9 81 20 99/64 (76) 91 02/23/17 03:45 98.2 79 18 108/62 (77) 94 02/23/17 00:28 80 02/22/17 23:37 98.2 79 18 97/64 (75) 93 02/22/17 20:27 98.1 80 18 131/57 (81) 94 02/22/17 17:19 97.9 76 20 118/67 (84) 98 I/O 02/22/17 02/22/17 02/22/17 02/23/17 02/23/17 02/23/17 07:00 15:00 23:00 07:00 15:00 23:00 Intake Total 500 ml Balance 500 ml Intake IV Total 500 ml Result Diagram: 02/23/17 0630 02/23/17 0630 Imaging Last Impressions Chest X-Ray 02/22/17 0444 Signed Impressions: Service Date/Time: Wednesday, February 22, 2017 04:52 - CONCLUSION: No significant interval change compared to the prior exam. Billy Weems MD Neck CTA 02/22/17 0000 Signed Impressions: Service Date/Time: Wednesday, February 22, 2017 06:25 - CONCLUSION: 1. Prominent atherosclerotic disease at carotid bulbs resulting in approximately 70%% stenosis of the proximal right ICA at its origin and approximately 40-50%% stenosis of the proximal left ICA. 2. Moderate grade stenosis of the proximal left common carotid artery at its origin. Gurdeep Laird MD Head CTA 02/22/17 0000 Signed Impressions: Service Date/Time: Wednesday, February 22, 2017 06:25 - CONCLUSION: No evidence of proximal high-grade stenosis or occlusion. Gurdeep Laird MD Head CT 02/22/17 0000 Signed Impressions: Service Date/Time: Wednesday, February 22, 2017 06:25 - CONCLUSION: Normal examination for a patient of this age. No significant change has occurred. Billy Weems MD Objective Remarks GENERAL: Well-nourished, well-developed obese female patient in NAD. Awake and alert. SKIN: Warm and dry. No rash. HEAD: Normocephalic. Atraumatic. EYES: EOMI. No scleral icterus. No injection or drainage. ENT: No nasal bleeding or discharge. Mucous membranes pink and moist. NECK: Supple. Trachea midline. CARDIOVASCULAR: Regular rate and rhythm. S1, S2 noted. No murmur appreciated. RESPIRATORY: Nonlabored. Clear to auscultation. Breath sounds equal bilaterally. GASTROINTESTINAL: Abdomen soft, non-tender, nondistended. Normoactive bowel sounds x4. MUSCULOSKELETAL: No obvious deformities. Extremities without clubbing, cyanosis , or edema. NEUROLOGICAL: Awake and alert. No obvious cranial nerve deficits. Motor grossly within normal limits. 5/5 muscle strength in bilateral upper and lower extremities. Nonfocal. Normal speech. PSYCHIATRIC: Appropriate mood and affect; insight and judgment normal. Medications and IVs Current Medications Medications (Trade) Dose Ordered Sig/Alexa Route Start Time Stop Time Status Last Admin (NS Flush) 2 ml BID IV FLUSH 02/22/17 21:00 02/23/17 09:43 (NS Flush) 2 ml UNSCH PRN IV FLUSH 02/22/17 09:45 (Aspirin) 325 mg DAILY PO 02/23/17 09:00 (NovoLOG SUPPLEMENTAL SCALE) 1 ACHS SQ 02/22/17 12:00 02/22/17 22:07 (D50w (Vial) Inj) 50 ml UNSCH PRN IV PUSH 02/22/17 09:45 (Glucagon Inj) 1 mg UNSCH PRN OTHER 02/22/17 09:45 (Cordarone) 200 mg DAILY PO 02/23/17 09:00 02/23/17 11:00 (Lipitor) 40 mg HS PO 02/22/17 21:00 02/22/17 20:25 (Bumetanide) 1 mg DAILY PO 02/23/17 09:00 Future Hold (Imdur) 30 mg DAILY@0700 PO 02/23/17 07:00 02/23/17 06:05 (Synthroid) 200 mcg DAILY@0600 PO 02/23/17 06:00 02/23/17 06:05 (Lopressor) 50 mg BID PO 02/22/17 21:00 02/22/17 20:24 (Entresto 97-103 Mg) 1 tab BID PO 02/22/17 21:00 Future Hold 02/22/17 21:16 (Aldactone) 12.5 mg DAILY PO 02/23/17 09:00 Future Hold (Effexor Xr) 75 mg DAILY PO 02/23/17 09:00 02/23/17 09:44 (Coumadin) 5 mg DAILY@1600 PO 02/22/17 16:00 02/23/17 16:41 (Protonix) 20 mg DAILY PO 02/23/17 09:00 02/23/17 09:44 (Pill Splitter) 1 ea UNSCH PRN OTHER 02/22/17 11:00 (Xanax) 0.25 mg Q6H PRN PO 02/22/17 13:00 ([place] 5-325 Mg) 1 tab Q6H PRN PO 02/22/17 13:00 02/23/17 02:17 (Deltasone) 5 mg BID PO 02/22/17 21:00 02/23/17 09:43 Pharmacy Profile Note 0 ml @ 0 mls/hr UNSCH OTHER 02/23/17 08:15 Sodium Chloride 1,000 ml @ 100 mls/hr Q10H IV 02/23/17 10:15 02/24/17 06:14 02/23/17 12:15 A/P Assessment and Plan 1. Right-sided weakness/slurred speech/dizziness CT head without acute intracranial pathology Head CT without evidence of stenosis or occlusion Neck CTA showed prominent arthrosclerotic disease of the carotid bulbs resulting in approximately 70% stenosis of the proximal right ICA and a 40-50% stenosis of the left ICA. Consult Vascular surgery, appreciate recommendations. Brain MRI/MRA unobtainable due to patient with pacemaker/AICD ECHO EF 50-55% Aspirin Neurology consulted, appreciate recommendations - vertigo f/u with ENT, recommends f/u with vascular surgery, signed off. PT consulted - did not get up with PT today due to low BP Check orthostatic BP measurements 2. MADHU: creatinine 1.22, GFR 45, BUN 27, suspect secondary to dehydration IVF hydration hold diuretics and Entresto avoid nephrotoxic agents Monitor kidney function, repeat BMP in am. 3. Hypertension: hypotensive now hold BP meds fall precautions continue to monitor BP 4. CAD Patient status post CABG Continue home medications 5. Atrial fibrillation Paced rhythm at 80 Continue home amiodarone, metoprolol, anticoagulation with Coumadin. INR subtherapeutic. Pharmacy to dose. Repeat PT/INR in am. 6. CHF, compensated Echo with EF 50-55% Last echo showed an EF of 55-60% in 2014 Continue home medications - Bumex, Aldactone and Entresto on hold due to MADHU. Monitor for signs of volume overload 7. Diabetes mellitus Holding home metformin SSI Monitor blood glucose 8. Polycystic kidney Creatinine 0.87 at admission Monitor renal function 9. Hypothyroidism Continue home Synthroid TSH elevated, obtain free T4 and total T3 FEN Heart healthy diabetic diet Electrolytes: monitor and replete prn Coumadin Discharge Planning Pending clinical course, vascular surgery clearance, PT recommendations Sabra Whalen Feb 23, 2017 17:35
[2017-02-23 19:03] LABS: FREE T4 1.14 NG/DL (0.76-1.46)
[2017-02-23] MEDS: ATORVASTATIN 40 MG TAB PO SCH (20:41)
[2017-02-24] VITALS (8 sets, daily range): BP systolic 100–114; BP diastolic 53–77; PULSE 80–82; RESP 17–20; TEMP 97.4–98; O2SAT 93–95
[2017-02-24] MEDS: ACETAMINOPHEN/HYDROcodone 325 MG/5 MG TAB PO PRN (00:50)
[2017-02-24] MEDS: LEVOTHYROXINE SODIUM 200 MCG TAB PO SCH (06:00)
[2017-02-24] MEDS: ISOSORBIDE MONONITRATE 30 MG TAB PO SCH (06:32)
[2017-02-24 07:00] LABS: PROTHROMBIN TIME - PATIENT 20.7 SEC (9.8-11.6)
[2017-02-24 07:22] LABS: BICARBONATE 28.8 MEQ/L (21.0-32.0); CALCIUM 8.8 MG/DL (8.5-10.1); CREATININE 1.25 MG/DL (0.50-1.00)
[2017-02-24] MEDS: INSULIN ASPART SUPPLEMENTAL SCALE SQ SCH ×4 (08:21→21:00)
[2017-02-24] MEDS: ASPIRIN 325 MG TAB PO SCH (08:23)
[2017-02-24] MEDS: VENLAFAXINE HCL XR 75 MG CAP PO SCH (08:23)
[2017-02-24] MEDS: predniSONE 5 MG TAB PO SCH ×2 (08:24→19:55)
[2017-02-24] MEDS: METOPROLOL TARTRATE 50 MG TAB PO SCH ×2 (08:24→19:55)
[2017-02-24] MEDS: PANTOPRAZOLE SOD 20 MG DELAYED RELEASE TAB PO SCH (08:25)
[2017-02-24] MEDS: SODIUM CHLORIDE 0.9% FLUSH 10 ML FLUSH IV FLUSH SCH ×2 (08:26→20:05)
[2017-02-24] MEDS: AMIODARONE 200 MG TAB PO SCH (08:28)
--- NOTE | 2017-02-24 10:19 | PD.CAR.PN ---
CVT Progress Note Subjective/Hospital Course: referral received full consult TF J Objective: Vital Signs Date Time Temp Pulse Resp B/P (MAP) Pulse Ox O2 Delivery O2 Flow Rate FiO2 02/24/17 08:27 Nasal Cannula 2.00 02/24/17 07:40 80 02/24/17 07:25 97.9 80 18 105/66 (79) 93 02/24/17 00:38 98.0 80 17 114/77 (89) 93 02/23/17 23:30 80 02/23/17 19:42 98.2 80 16 93/55 (68) 97 103/65 (78) 109/68 (82) 02/23/17 16:47 80 02/23/17 15:14 97.9 80 20 111/63 (79) 97 02/23/17 15:00 Nasal Cannula 2.00 02/23/17 12:08 80 02/23/17 11:32 97.8 80 20 90 Labs: Laboratory Tests Test 02/24/17 06:32 Prothrombin Time 20.7 SEC (9.8-11.6) Prothromb Time International Ratio 2.0 RATIO Blood Urea Nitrogen 32 MG/DL (7-18) Creatinine 1.25 MG/DL (0.50-1.00) Random Glucose 99 MG/DL (74-106) Calcium Level 8.8 MG/DL (8.5-10.1) Sodium Level 142 MEQ/L (136-145) Potassium Level 4.2 MEQ/L (3.5-5.1) Chloride Level 108 MEQ/L (98-107) Carbon Dioxide Level 28.8 MEQ/L (21.0-32.0) Anion Gap 5 MEQ/L (5-15) Estimat Glomerular Filtration Rate 44 ML/MIN (>89) Total Triiodothyronine 36 NG/DL (60-181) Result Diagram: 02/23/1730 02/24/17 0632 Chin Alcazar MD Feb 24, 2017 10:18
--- NOTE | 2017-02-24 11:44 | HHI.PR ---
Subjective Remarks Patient in bed says she feels better today. No motor or sensory deficit. No change in vision. No lightheadedness, palpitations, chest pain. Feels tired. Objective Vitals Vital Signs Date Time Temp Pulse Resp B/P (MAP) Pulse Ox O2 Delivery O2 Flow Rate FiO2 02/24/17 11:18 97.5 80 18 109/53 (71) 93 02/24/17 08:27 Nasal Cannula 2.00 02/24/17 07:40 80 02/24/17 07:25 97.9 80 18 105/66 (79) 93 02/24/17 00:38 98.0 80 17 114/77 (89) 93 02/23/17 23:30 80 02/23/17 19:42 98.2 80 16 93/55 (68) 97 103/65 (78) 109/68 (82) 02/23/17 16:47 80 02/23/17 15:14 97.9 80 20 111/63 (79) 97 02/23/17 15:00 Nasal Cannula 2.00 02/23/17 12:08 80 I/O 02/23/17 02/23/17 02/23/17 02/24/17 02/24/17 02/24/17 07:00 15:00 23:00 07:00 15:00 23:00 Intake Total 500 ml Balance 500 ml Intake IV Total 500 ml # Voids 2 # Bowel Movements 1 Result Diagram: 02/23/17 0630 02/24/17 0632 Imaging Last Impressions Chest X-Ray 02/22/17 0444 Signed Impressions: Service Date/Time: Wednesday, February 22, 2017 04:52 - CONCLUSION: No significant interval change compared to the prior exam. Billy Weems MD Neck CTA 02/22/17 0000 Signed Impressions: Service Date/Time: Wednesday, February 22, 2017 06:25 - CONCLUSION: 1. Prominent atherosclerotic disease at carotid bulbs resulting in approximately 70%% stenosis of the proximal right ICA at its origin and approximately 40-50%% stenosis of the proximal left ICA. 2. Moderate grade stenosis of the proximal left common carotid artery at its origin. Gurdeep Laird MD Head CTA 02/22/17 0000 Signed Impressions: Service Date/Time: Wednesday, February 22, 2017 06:25 - CONCLUSION: No evidence of proximal high-grade stenosis or occlusion. Gurdeep Laird MD Head CT 02/22/17 0000 Signed Impressions: Service Date/Time: Wednesday, February 22, 2017 06:25 - CONCLUSION: Normal examination for a patient of this age. No significant change has occurred. Billy Weems MD Objective Remarks GENERAL: Well-nourished, well-developed obese female patient in NAD. Awake and alert. CARDIOVASCULAR: Regular rate and rhythm. S1, S2 noted. No murmur appreciated. RESPIRATORY: Nonlabored. Clear to auscultation. Breath sounds equal bilaterally. GASTROINTESTINAL: Abdomen soft, non-tender, nondistended. Normoactive bowel sounds x4. MUSCULOSKELETAL: No obvious deformities. Extremities without clubbing, cyanosis , or edema. NEUROLOGICAL: Awake and alert. No obvious cranial nerve deficits. Motor grossly within normal limits. 5/5 muscle strength in bilateral upper and lower extremities. Nonfocal. Normal speech. PSYCHIATRIC: Appropriate mood and affect; insight and judgment normal. A/P Assessment and Plan Right-sided weakness/slurred speech/dizziness Right carotid stenosis 70 % (prox right ICA) CT head without acute intracranial pathology Head CT without evidence of stenosis or occlusion Neck CTA showed prominent arthrosclerotic disease of the carotid bulbs resulting in approximately 70% stenosis of the proximal right ICA and a 40-50% stenosis of the left ICA. Consult Vascular surgery, appreciate recommendations. Brain MRI/MRA unobtainable due to patient with pacemaker/AICD ECHO EF 50-55% Aspirin Neurology consulted, appreciate recommendations - vertigo f/u with ENT, recommends f/u with vascular surgery, signed off. PT consulted - did not get up with PT today due to low BP Check orthostatic BP measurements MADHU: creatinine 1.22, GFR 45, BUN 27, on admission suspect secondary to dehydration due to intentional decrease PO intake IVF hydration hold diuretics and Entresto avoid nephrotoxic agents Monitor kidney function, repeat BMP in am. Hypertension: noted hypotensive hold BP meds if low BP, monitor and adjust meds as need fall precautions continue to monitor BP CAD Patient status post CABG Continue home medications Atrial fibrillation Paced rhythm at 80 Continue home amiodarone, metoprolol, anticoagulation with Coumadin. INR subtherapeutic. Pharmacy to dose. Repeat PT/INR in am. CHF, compensated Echo with EF 50-55% Last echo showed an EF of 55-60% in 2014 Continue home medications - Bumex, Aldactone and Entresto on hold due to MADHU. Monitor for signs of volume overload Diabetes mellitus Holding home metformin SSI Monitor blood glucose Polycystic kidney Creatinine 0.87 at admission Monitor renal function, BP Hypothyroidism Continue home Synthroid TSH elevated, obtain free T4 and total T3 DVT ppx on Coumadin Discharge Planning Pending clinical course, vascular surgery clearance Roxana Cline MD Feb 24, 2017 11:44
--- NOTE | 2017-02-24 17:43 | HHI.DCPOC ---
Discharge Care Plan Goals to Promote Your Health * To prevent worsening of your condition and complications * To maintain your health at the optimal level Directions to Meet Your Goals Take your medications as prescribed Follow your dietary instruction Follow activity as directed Keep your appointments as scheduled Take your immunizations and boosters as scheduled If your symptoms worsen call your PCP, if no PCP go to Urgent Care Center or Emergency Room Smoking is Dangerous to Your Health. Avoid second hand smoke Call the 24-hour hour crisis hotline for domestic abuse at Roxana Cline MD Feb 24, 2017 17:43
[2017-02-24] MEDS: ATORVASTATIN 40 MG TAB PO SCH (19:55)
--- NOTE | 2017-02-24 21:11 | MB ---
cc: CHIN MARTINEZ MD DATE OF CONSULTATION 02/24/2017 REASON FOR CONSULTATION Right carotid artery stenosis, transient ischemic attack HISTORY OF PRESENT ILLNESS This 61-year-old female who is a known vasculopath presents to the hospital with severe dizziness and she started falling after trying to get out of bed. The patient saw the room was spinning, she had slurred speech and then she got better after that. She is also reporting right arm and left leg weakness that resolved. Question arises about the nature of these findings. PAST MEDICAL HISTORY 1. Coronary artery disease status post coronary artery bypass graft 2. Atrial fibrillation which is now resolved 3. Diabetes mellitus 4. Polycystic kidney disease, 5. Hypertension, 6. Hyperlipidemia, 7. Hypothyroidism 8. Obesity. PAST SURGICAL HISTORY 1. Coronary artery bypass graft in 2006 2. New defibrillator placement at the same time 3. Ablation for A. fib 4. Tonsillectomy MEDICATIONS Can be found on the record. ALLERGIES ERYTHROMYCIN VANCOMYCIN LEVAQUIN LEVOFLOXACIN PHYSICAL EXAMINATION GENERAL: An obese 61-year-old female in no acute distress. HEENT: Normocephalic. No trauma to the head. Pupils equally reactive. Extraocular muscles are intact. NECK: Supple with bilateral carotid pulses. I do not hear any bruits. CHEST: Bilateral breath sounds decreased over both lung aguilar consistent with moderate degree of COPD. The patient's body habitus is also somewhat prohibitive of a detailed exam. ABDOMEN: Soft. Active bowel sounds. No masses noted. HEART: The patient is in regular rhythm. She does not have A. fib right now. So the ablation must of been successful. EXTREMITIES: The patient is fairly obese with large extremities but no signs of acute vascular deficit NEUROLOGIC: The patient is currently intact. She is awake, alert, no lateralization. IMPRESSION/RECOMMENDATIONS I reviewed laboratory and diagnostic procedures. The lady certainly presented with symptoms that are reminiscent of a TIA, but the side of stenosis does not quite resemble the symptoms. However, it is hard to tell with this patient. Ultrasound and CT of the carotids is consistent with about 70% right internal carotid artery stenosis, about 50% left. There are other studies pending. At this point, it is quite hard to tell if the symptoms were due to the carotid stenosis or maybe cardiac event. The patient is on Coumadin for apparently DVT, not previous A. Fib so we will see how she does in the next few days and then decide on further course of therapy. There is definitely no acute stroke. The dictum is that patients with a 70% carotid artery stenosis even if asymptomatic should be considered for carotid endarterectomy for risk of stroke is high and is about 8-12% a year. This patient is symptomatic, but it is quite unclear whether the symptoms are really from the carotid. When all the workup is completed, wee will decide the best course of action. I will continue to follow patient with you. Thank much for referral. Chin MCNALLY /8:21 PM /8:50 PM
[2017-02-25] MEDS: ACETAMINOPHEN/HYDROcodone 325 MG/5 MG TAB PO PRN ×2 (01:37→14:00)
[2017-02-25 03:33] VITALS: BP 107/65; PULSE 80; RESP 18; TEMP 97.7; O2SAT 94
[2017-02-25] MEDS: LEVOTHYROXINE SODIUM 200 MCG TAB PO SCH (06:00)
[2017-02-25] MEDS: ISOSORBIDE MONONITRATE 30 MG TAB PO SCH (06:01)
[2017-02-25 07:19] VITALS: BP 100/63; PULSE 80; RESP 18; TEMP 97.7; O2SAT 94
[2017-02-25] MEDS: INSULIN ASPART SUPPLEMENTAL SCALE SQ SCH ×4 (08:00→21:00)
[2017-02-25 08:10] LABS: INTERNATIONAL NORMALIZED RATIO 1.9 RATIO; PROTHROMBIN TIME - PATIENT 18.8 SEC (9.8-11.6)
[2017-02-25] MEDS: VENLAFAXINE HCL XR 75 MG CAP PO SCH (08:23)
[2017-02-25] MEDS: METOPROLOL TARTRATE 50 MG TAB PO SCH ×2 (08:24→21:29)
[2017-02-25] MEDS: predniSONE 5 MG TAB PO SCH ×2 (08:24→21:29)
[2017-02-25] MEDS: ASPIRIN 325 MG TAB PO SCH (08:24)
[2017-02-25] MEDS: PANTOPRAZOLE SOD 20 MG DELAYED RELEASE TAB PO SCH (08:25)
[2017-02-25] MEDS: SODIUM CHLORIDE 0.9% FLUSH 10 ML FLUSH IV FLUSH SCH ×2 (08:25→21:30)
[2017-02-25] MEDS: AMIODARONE 200 MG TAB PO SCH (08:25)
--- NOTE | 2017-02-25 11:23 | HHI.PR ---
Subjective Remarks The patient is at the margin of the bed. Denies having any headaches, new motor deficit. No change in vision. Eating better. Denies nausea or vomiting no diarrhea or constipation. Able to ambulate. Plan for carotid endarterectomy by Dr. Cruz tomorrow Objective Vitals Vital Signs Date Time Temp Pulse Resp B/P (MAP) Pulse Ox O2 Delivery O2 Flow Rate FiO2 02/25/17 08:20 Room Air 2.00 02/25/17 07:19 97.7 80 18 100/63 (75) 94 02/25/17 03:33 97.7 80 18 107/65 (79) 94 02/25/17 03:11 18 02/24/17 23:29 98.0 80 18 111/74 (86) 95 02/24/17 20:10 Room Air 02/24/17 19:48 97.9 82 20 100/54 (69) 95 02/24/17 16:30 97.4 80 20 108/67 (81) 93 107/72 (84) 111/70 (84) 02/24/17 16:05 80 I/O 02/24/17 02/24/17 02/24/17 02/25/17 02/25/17 02/25/17 07:00 15:00 23:00 07:00 15:00 23:00 Intake Total 200 ml 150 ml Output Total 3 ml Balance -3 ml 200 ml 150 ml Intake Oral 200 ml 150 ml Output Urine Total 3 ml # Voids 1 Result Diagram: 02/23/17 0630 02/24/17 0632 Objective Remarks GENERAL: Well-nourished, well-developed obese female patient in NAD. Awake and alert. CARDIOVASCULAR: Regular rate and rhythm. S1, S2 noted. No murmur appreciated. RESPIRATORY: Nonlabored. Clear to auscultation. Breath sounds equal bilaterally. GASTROINTESTINAL: Abdomen soft, non-tender, nondistended. Normoactive bowel sounds x4. MUSCULOSKELETAL: No obvious deformities. Extremities without clubbing, cyanosis , or edema. NEUROLOGICAL: Awake and alert. No obvious cranial nerve deficits. Motor grossly within normal limits. 5/5 muscle strength in bilateral upper and lower extremities. Nonfocal. Normal speech. PSYCHIATRIC: Appropriate mood and affect; insight and judgment normal. A/P Assessment and Plan Right-sided weakness/slurred speech/dizziness Right carotid stenosis 70 % (prox right ICA), seen by pia Guevara plan for carotid endarterectomy 02/26/17 CT head without acute intracranial pathology Head CT without evidence of stenosis or occlusion Neck CTA showed prominent arthrosclerotic disease of the carotid bulbs resulting in approximately 70% stenosis of the proximal right ICA and a 40-50% stenosis of the left ICA. Consult Vascular surgery, appreciate recommendations. Brain MRI/MRA unobtainable due to patient with pacemaker/AICD ECHO EF 50-55% Aspirin Neurology consulted, appreciate recommendations - vertigo f/u with ENT, recommends f/u with vascular surgery, signed off. PT consulted - did not get up with PT today due to low BP Check orthostatic BP measurements MADHU: creatinine 1.22, GFR 45, BUN 27, on admission suspect secondary to dehydration due to intentional decrease PO intake IVF hydration hold diuretics and Entresto avoid nephrotoxic agents Monitor kidney function, repeat BMP in am. Hypertension: noted hypotensive hold BP meds if low BP, monitor and adjust meds as need fall precautions continue to monitor BP CAD Patient status post CABG Continue home medications Atrial fibrillation Paced rhythm at 80 Continue home amiodarone, metoprolol, anticoagulation with Coumadin. INR subtherapeutic. Pharmacy to dose. Repeat PT/INR in am. CHF, compensated Echo with EF 50-55% Last echo showed an EF of 55-60% in 2014 Continue home medications - Bumex, Aldactone and Entresto on hold due to MADHU. Monitor for signs of volume overload Diabetes mellitus Holding home metformin SSI Monitor blood glucose Polycystic kidney Creatinine 0.87 at admission Monitor renal function, BP Hypothyroidism Continue home Synthroid TSH elevated, obtain free T4 and total T3 DVT ppx on Coumadin Discharge Planning Pending clinical course, vascular surgery clearance. Poss CEA by Dr Alcazar Roxana Cline MD Feb 25, 2017 11:23
[2017-02-25 11:30] VITALS: BP 109/75; PULSE 78; RESP 18; TEMP 97.5; O2SAT 94
[2017-02-25 11:38] VITALS: BP_SYST 104; BP_SYST 127; BP_DIAS 72; BP_DIAS 82
--- NOTE | 2017-02-25 14:25 | PD.CAR.PN ---
CVT Progress Note Subjective/Hospital Course: referral received full consult TF J Patient stable now Neurologically remains intact The dizziness and vertigo she had is now gone in this more and more looks like a TIA Neurology consult greatly appreciated At this point agree with neurologist and I will address carotid artery while patient still in the hospital Patient is known to cardiac problems and I reviewed her echocardiogram Cardiology consulted, spoken to Dr Juarez. All things equal for right carotid endarterectomy after cardiac cath, likely Thursday or Thursday Objective: Vital Signs Date Time Temp Pulse Resp B/P (MAP) Pulse Ox O2 Delivery O2 Flow Rate FiO2 02/25/17 11:38 104/72 (83) 127/82 (97) 02/25/17 11:30 97.5 78 18 109/75 (86) 94 02/25/17 08:20 Room Air 2.00 02/25/17 07:19 97.7 80 18 100/63 (75) 94 02/25/17 03:33 97.7 80 18 107/65 (79) 94 02/25/17 03:11 18 02/24/17 23:29 98.0 80 18 111/74 (86) 95 02/24/17 20:10 Room Air 02/24/17 19:48 97.9 82 20 100/54 (69) 95 02/24/17 16:30 97.4 80 20 108/67 (81) 93 107/72 (84) 111/70 (84) 02/24/17 16:05 80 Labs: Laboratory Tests Test 02/25/17 07:43 Prothrombin Time 18.8 SEC (9.8-11.6) Prothromb Time International Ratio 1.9 RATIO Result Diagram: 02/23/1730 02/24/17 0632 Chin Alcazar MD Feb 25, 2017 14:25
[2017-02-25] MEDS ORDERED: ceFAZolin 2 GM PREMIX 50 ML IV SCH (14:30)
[2017-02-25 15:43] VITALS: BP 118/80; PULSE 80; RESP 22; TEMP 97.7; O2SAT 94
--- NOTE | 2017-02-25 17:23 | MB ---
cc: SCAR HERNANDEZ M.D. DATE OF CONSULTATION 02/25/2017 HISTORY Laura is a very pleasant 61-year lady with history coronary artery disease. She had CABG in 2006, history of myocardial infarction. She is currently preop for carotid endarterectomy. She presented after waking up at night, sitting up and then having a syncopal event. She is being followed by Dr. Hamilton who saw her on February 23. He recommended to continue warfarin. The patient notes she gets severely short of breath walking across the room which has gotten worse compared to a year ago. Denies chest pain. Denies fevers, chills, cough, GI or bleeding, paroxysmal nocturnal dyspnea, orthopnea. PAST MEDICAL HISTORY 1. Her past medical history is per history of present illness. She has a history of: Chronic atrial fibrillation. 2. She has arthritis in her bilateral hips and left knee. 3. Rheumatoid arthritis. 4. Possible right breast cancer. 5. History of pacemaker and defibrillator placement. 6. History of hyperlipidemia. 7. Congestive heart failure. 8. Chronic obstructive pulmonary disease. 9. Type 2 diabetes mellitus. 10. Gastroesophageal reflux disease. 11. Polycystic kidneys. 12. She is on home oxygen. 13. She has had myocardial infarction times two. 14. She has had ablation times four. 15. Tonsillectomy. SOCIAL HISTORY Denies tobacco or alcohol use. ALLERGIES AZITHROMYCIN, CYCLOSPORIN, ERYTHROMYCIN, VANCOMYCIN, LEVOTHYROXINE. MEDICATIONS Prior to admission: 1. Xanax. 2. Entresto. 3. Staley. 4. ProAir. 5. Bumex. 6. Venlafaxine. 7. Synthroid. 8. Amiodarone 200 daily. 9. Spironolactone 25 daily. 10. Warfarin 5 milligrams daily. 11. Atorvastatin 40 bedtime. 12. Omeprazole. 13. Prednisone. 14. Metoprolol 50 twice a day. 15. Isosorbide mononitrate 30 daily. MEDICATIONS Her medications in the hospital: 1. Cefazolin. 2. Amiodarone 200 daily. 3. Effexor 75 daily. 4. Protonix 20 daily. 5. Imdur 30 daily. 6. Levothyroxine 200 micrograms daily. 7. Atorvastatin 40 bedtime. 8. Metoprolol 50 twice a day. 9. Prednisone 5 milligrams twice a day. 10. Entresto is being held. PHYSICAL EXAMINATION VITAL SIGNS: Blood pressure 104/72, pulse 78, respiratory rate 18, saturation is 94% on 2 liters nasal cannula. Temperature 97.5. GENERAL: She is alert and oriented times three in no acute distress. NECK: Supple. No JVD. No bruit. CARDIOVASCULAR: S1-S2. No murmurs, rubs, or gallops. LUNGS: Clear to auscultation bilaterally. ABDOMEN: Soft and nontender. Nondistended. With positive bowel sounds. EXTREMITIES: No lower extremity edema. IMAGING CTA of the neck February 22, 2017 shows a prominent atherosclerotic disease at the carotid bulbs approximately 70% stenosis of the proximal right internal carotid artery at its origin. 40-50% stenosis of the proximal left internal carotid artery, moderate restenosis of the proximal left common carotid artery at its origin. Head CTA no evidence of proximal high-grade stenosis or occlusion. Head CT scan normal examination for the patient of this age. No significant change has occurred. Chest x-ray no significant interval change compared to prior exam. EKG atrial paced rhythm at 80 beats per minute, LVH, prolonged corrected QT interval. ECHOCARDIOGRAM EF 55%, trace to mild MR. PA pressure 35 mmHg. LABORATORY DATA White count 8.9, hemoglobin 12.9, hematocrit 38.3, platelet count 240. Sodium 142, potassium 4.2, chloride 108, bicarbonate 20.8, BUN 32, creatinine 1.25. CK 44. Troponin less than 0.2. BNP is 78. LDL is 105. TSH is 12.10. INR today is 1.9. FINAL DIAGNOSES 1. Syncope. 2. Carotid stenosis. 3. Coronary artery disease. 4. Status post coronary artery bypass graft. 5. Diabetes mellitus. 6. COPD. 7. Congestive heart failure [place] [employer] class III - IV. 8. Chronic renal insufficiency. 9. Status post ICD / pacemaker. DISCUSSION The patient is high risk for noncardiac surgery given the fact that she had a bypass over 10 years ago. She is diabetic and she gets severe shortness of breath walking across the room and her dyspnea has gotten worse. Therefore, she has unstable symptoms, class III-IV congestive heart failure anginal equivalent, [place] [employer] class III- IV angina, unstable angina. Therefore I do recommend left heart catheterization, right heart catheterization prior to noncardiac surgery. If a stent is placed it potentially would delay noncardiac surgery for 6 weeks as she would need aspirin and Plavix for at least six weeks. I have explained this to the patient. The patient agrees with the plan. At this point in time her INR is subtherapeutic. Will put her on Lovenox a milligram per kilogram subcu q.12 h. I will try to put her on the schedule tomorrow but I may have to actually do the procedure on Thursday based on my current schedule. MD LARRY James/KK /3:12 PM /4:43 PM
[2017-02-25] MEDS: ENOXAPARIN SODIUM 120 MG/0.8 ML SYRINGE SQ SCH (19:38)
[2017-02-25 21:01] VITALS: BP 129/76; PULSE 87; RESP 19; TEMP 97.9; O2SAT 94
[2017-02-25] MEDS: ATORVASTATIN 40 MG TAB PO SCH (21:29)
[2017-02-26] VITALS (28 sets, daily range): BP systolic 64–133; BP diastolic 30–94; PULSE 79–149; RESP 16–22; TEMP 97.6–98.2; O2SAT 95–100
[2017-02-26] MEDS: ACETAMINOPHEN/HYDROcodone 325 MG/5 MG TAB PO PRN ×2 (02:09→16:03)
[2017-02-26 05:03] LABS: AUTOMATED NEUTROPHIL # 7.8 TH/MM3 (1.8-7.7); BASOPHIL % 0.3 % (0.0-2.0); EOSINOPHIL # 0.1 TH/MM3 (0-0.4); EOSINOPHIL % 0.7 % (0.0-4.0); HEMATOCRIT 35.2 % (35.0-46.0); HEMOGLOBIN 11.8 GM/DL (11.6-15.3); LYMPH % 5.6 % (9.0-44.0); LYMPHOCYTE # 0.5 TH/MM3 (1.0-4.8); MEAN CELL VOLUME 89.6 FL (80.0-100.0); MEAN CORPUSCULAR HGB CONC 33.5 % (32.0-36.0); MEAN PLATELET VOLUME 7.7 FL (7.0-11.0); MONO % 7.9 % (0.0-8.0); MONOCYTE # 0.7 TH/MM3 (0-0.9); NEUT % 85.5 % (16.0-70.0); PLATELET COUNT 177 TH/MM3 (150-450); RED BLOOD COUNT 3.93 MIL/MM3 (4.00-5.30); RED CELL DISTRIBUTION WIDTH 16.5 % (11.6-17.2); WHITE BLOOD COUNT 9.2 TH/MM3 (4.0-11.0)
[2017-02-26] MEDS: LEVOTHYROXINE SODIUM 200 MCG TAB PO SCH (05:08)
[2017-02-26] MEDS: ENOXAPARIN SODIUM 120 MG/0.8 ML SYRINGE SQ SCH (05:10)
[2017-02-26 05:11] LABS: INTERNATIONAL NORMALIZED RATIO 1.6 RATIO; PROTHROMBIN TIME - PATIENT 16.5 SEC (9.8-11.6)
[2017-02-26 05:46] LABS: CALCIUM 8.6 MG/DL (8.5-10.1); CREATININE 0.99 MG/DL (0.50-1.00)
[2017-02-26 06:29] LABS: HEMATOCRIT 34.6 % (35.0-46.0); HEMOGLOBIN 11.7 GM/DL (11.6-15.3); MEAN CELL VOLUME 89.7 FL (80.0-100.0); MEAN CORPUSCULAR HEMOGLOBIN 30.4 PG (27.0-34.0); MEAN CORPUSCULAR HGB CONC 33.9 % (32.0-36.0); MEAN PLATELET VOLUME 7.6 FL (7.0-11.0); PLATELET COUNT 168 TH/MM3 (150-450); RED BLOOD COUNT 3.85 MIL/MM3 (4.00-5.30); RED CELL DISTRIBUTION WIDTH 16.5 % (11.6-17.2); WHITE BLOOD COUNT 8.9 TH/MM3 (4.0-11.0)
[2017-02-26] MEDS: INSULIN ASPART SUPPLEMENTAL SCALE SQ SCH ×2 (08:00→12:00)
[2017-02-26] MEDS: SODIUM CHLORIDE 0.9% FLUSH 10 ML FLUSH IV FLUSH SCH ×2 (09:00→21:00)
[2017-02-26] MEDS: METOPROLOL TARTRATE 50 MG TAB PO SCH ×2 (09:18→21:00)
[2017-02-26] MEDS: AMIODARONE 200 MG TAB PO SCH (09:19)
[2017-02-26] MEDS: predniSONE 5 MG TAB PO SCH ×2 (09:19→21:00)
[2017-02-26] MEDS: ISOSORBIDE MONONITRATE 30 MG TAB PO SCH (09:19)
[2017-02-26] MEDS: PANTOPRAZOLE SOD 20 MG DELAYED RELEASE TAB PO SCH (09:19)
[2017-02-26] MEDS: VENLAFAXINE HCL XR 75 MG CAP PO SCH (09:19)
--- NOTE | 2017-02-26 10:44 | HHI.PR ---
Subjective Remarks In bed. Says she has no pain. Feels a little tired. no chest pain or sob.No n/v/ d/c. Patient is eating better. Denies change in vision, new motor deficit. Objective Vitals Vital Signs Date Time Temp Pulse Resp B/P (MAP) Pulse Ox O2 Delivery O2 Flow Rate FiO2 02/26/17 07:26 97.9 80 16 91/60 (70) 95 02/26/17 04:42 81 02/26/17 04:42 Room Air 02/26/17 04:01 97.8 79 18 102/58 (73) 95 02/26/17 00:15 98.0 79 18 108/68 (81) 95 02/25/17 21:01 97.9 87 19 129/76 (93) 94 02/25/17 15:43 97.7 80 22 118/80 (93) 94 02/25/17 11:38 104/72 (83) 127/82 (97) 02/25/17 11:30 97.5 78 18 109/75 (86) 94 I/O 02/25/17 02/25/17 02/25/17 02/26/17 02/26/17 02/26/17 07:00 15:00 23:00 07:00 15:00 23:00 Intake Total 150 ml Balance 150 ml Intake Oral 150 ml # Voids 3 Result Diagram: 02/26/17 0615 02/26/17 0351 Imaging Last Impressions Chest X-Ray 02/22/17 0444 Signed Impressions: Service Date/Time: Wednesday, February 22, 2017 04:52 - CONCLUSION: No significant interval change compared to the prior exam. Billy Weems MD Neck CTA 02/22/17 0000 Signed Impressions: Service Date/Time: Wednesday, February 22, 2017 06:25 - CONCLUSION: 1. Prominent atherosclerotic disease at carotid bulbs resulting in approximately 70%% stenosis of the proximal right ICA at its origin and approximately 40-50%% stenosis of the proximal left ICA. 2. Moderate grade stenosis of the proximal left common carotid artery at its origin. Gurdeep Laird MD Head CTA 02/22/17 0000 Signed Impressions: Service Date/Time: Wednesday, February 22, 2017 06:25 - CONCLUSION: No evidence of proximal high-grade stenosis or occlusion. Gurdeep Laird MD Head CT 02/22/17 0000 Signed Impressions: Service Date/Time: Wednesday, February 22, 2017 06:25 - CONCLUSION: Normal examination for a patient of this age. No significant change has occurred. Billy Weems MD Objective Remarks GENERAL: Well-nourished, well-developed obese female patient in NAD. Awake and alert. CARDIOVASCULAR: Regular rate and rhythm. S1, S2 noted. No murmur appreciated. RESPIRATORY: Nonlabored. Clear to auscultation. Breath sounds equal bilaterally. GASTROINTESTINAL: Abdomen soft, non-tender, nondistended. Normoactive bowel sounds x4. MUSCULOSKELETAL: No obvious deformities. Extremities without clubbing, cyanosis , or edema. NEUROLOGICAL: Awake and alert. No obvious cranial nerve deficits. Motor grossly within normal limits. 5/5 muscle strength in bilateral upper and lower extremities. Nonfocal. Normal speech. PSYCHIATRIC: Appropriate mood and affect; insight and judgment normal. A/P Assessment and Plan Right-sided weakness/slurred speech/dizziness Right carotid stenosis 70 % (prox right ICA), seen by pia Guevara plan for carotid endarterectomy 02/26/17 CT head without acute intracranial pathology Head CT without evidence of stenosis or occlusion Neck CTA showed prominent arthrosclerotic disease of the carotid bulbs resulting in approximately 70% stenosis of the proximal right ICA and a 40-50% stenosis of the left ICA. Consult Vascular surgery, appreciate recommendations. Brain MRI/MRA unobtainable due to patient with pacemaker/AICD ECHO reviewed, EF 50-55% Aspirin Neurology consulted, appreciate recommendations - vertigo f/u with ENT, recommends f/u with vascular surgery, signed off. PT consulted - did not get up with PT today due to low BP Check orthostatic BP measurements MADHU: creatinine 1.22, GFR 45, BUN 27, on admission suspect secondary to dehydration due to intentional decrease PO intake IVF hydration hold diuretics and Entresto avoid nephrotoxic agents Monitor kidney function, repeat BMP in am. Hypertension: noted hypotensive hold BP meds if low BP, monitor and adjust meds as need fall precautions continue to monitor BP CAD Patient status post CABG Continue home medications Atrial fibrillation Paced rhythm at 80 Continue home amiodarone, metoprolol, anticoagulation with Coumadin. INR subtherapeutic. Pharmacy to dose. Repeat PT/INR in am. CHF, compensated Echo with EF 50-55% Last echo showed an EF of 55-60% in 2014 Continue home medications - Bumex, Aldactone and Entresto on hold due to MADHU. Monitor for signs of volume overload Diabetes mellitus Holding home metformin SSI Monitor blood glucose Polycystic kidney Creatinine 0.87 at admission Monitor renal function, BP Hypothyroidism Continue home Synthroid TSH elevated, obtain free T4 and total T3 DVT ppx on Coumadin Discharge Planning Pending clinical course, vascular surgery clearance. Poss CEA by Dr Alcazar Roxana Cline MD Feb 26, 2017 10:44
[2017-02-26] MEDS ORDERED: HEPARIN-NS/PF INJ 1,000 ML ONE (14:10)
[2017-02-26] MEDS ORDERED: MIDAZOLAM HCL 2 MG/2 ML VIAL ONE (14:26)
[2017-02-26] MEDS ORDERED: LIDOCAINE HCL 1% PF 30 ML VIAL ONE (14:42)
[2017-02-26] MEDS ORDERED: HEPARIN SODIUM - IV 10,000 UNITS/10 ML VIAL ONE (14:42)
--- NOTE | 2017-02-26 16:00 | CATHPROC ---
[place] HIS Report Study Information Study Number Admission Scheduled Start Study Start [id number] Feb 24 2017 11:08AM 02/26/2017 Feb 26 2017 2:14PM [place] Service Cardiac Catheterization Admit Source Facility Department Emergency department [facility] - Bi Consultant Physician and Clinical Staff Initial Macho Franco Rolling Up Machine OperatorSkyler Armstrong,BHAVYA Rolling Up Machine Operatorhenna Wynne RN, Jocelyn Tamez RN Scrub Barry Aguirre RCIS(BS) Procedures Performed Procedure Location (Site) Vessel Name Coronary Angiograms LCA Left Coronary Coronary Angiograms RCA Right Coronary Coronary Angiograms SVG-DIAG Left Coronary Coronary Angiograms SVG-OM CIRC Coronary Angiograms SVG-RCA Right Coronary LV Gram-hand inj. LV LV Ventricle Wire insertion Fem Art (right) Femoral Art Equipment Time Release Engineer Description Size Mfg Part Number Used/Scraped CATHETER, FR5 SWAN GARRETT 14:29 HEARD VILLANUEVA FR 5 [id number] *[id number] Used MONITOR CATHETER, FR5 SWAN GARRETT 14:29 HEARD VILLANUEVA FR 5 [id number] *[id number] Used MONITOR TRANSDUCER, TRUWAVE [id number] 14:29 HEARD VILLANUEVA * Used W/STOCKCOCK *[id number] 538-460 *[id number] [id number] *[id number] [id number] *[id number] 538-442 *[id number] WIRE, HYDROSTEER 150CM [id number] 15:24 DAIG/[employer] 150CM Used ANGLED GLIDE *[id number] WIRE, HYDROSTEER 260CM [id number] 15:30 [employer]IG[employer] 260CM Used ANGLED GLIDE *[id number] 14:29 [employer] PACK, CCL CUSTOM * Used *[id number] 14:29 MEDLINE PACER PEN, SKIN DUAL W/ RULER * Used *[id number] 14:29 [employer] SHEATH, FR5.5 PRELUDE 11CM FR 5.5 Used [id number] 14:29 [employer] MEDICAL WIRE, 3MMJ .035 180CM 180CM Used *[id number] 14:45 [employer] MEDICAL WIRE, EXCHANGE 260CM 3MMJ 260CM Used *[id number] 14:29 NAMIC MANIFOLD, 4 PORT * Used *[id number] 14:29 [employer] OMNIPAQUE, 350 MG, 150ML 150ML [id number] Used [id number] 14:29 [employer] BLANKET,WARM AIR CCL * Used *[id number] 14:29 [employer] SHEATH, FR4 TERUMO (10CM) FR 4 Used *[id number] 14:29 [employer] SHEATH, FR5 TERUMO (10CM) FR 5 Used *[id number] 14:59 [employer] NEEDLE, DOPPLER SMART 18GA 18GA 83867 *[id number] Used Equipment Model, Serial, Lot Number and Expiration Data Description Model Number Serial Number Lot Number Expiration Date WIRE, HYDROSTEER 260CM [id number] 04-09-2019 ANGLED GLIDE History: Current Medications Medication Dosage/Unit Route Frequency Last Date/Time Taken Beta Nick Statins (any) COZAAR Coumadin History: Allergies Allergy Reaction *MDRO Multi-Drug Resistant Organism azithromycin cyclosporine Levaquin ITCHING Macrolides vancomycin FACIAL SWELLING erythromycin base levofloxacin ITCHING MRI PRECAUTION PACEMAKER/DEFRIBRILLATOR History: Risk Factors Family History of Hypertension Dyslipidemia Previous NM Previous Heart Failure Premature CAD Yes Yes Yes Yes Yes Prior Valve Prior PCI Prior CABG Prior CABGDate Surgery No No Yes 02/09/2006 Cerebrovascular Peripheral Artery Chronic Lung On Dialysis Diabetes Disease Disease Disease No Yes No Yes No History: Risk Factors Selection Items Current Smoker Hyperlipidemia Obesity Previous Cardiovascular Treatment History: Symptoms/Diagnosis Selection Items COLE SOB History: CV Disease Selection Items Known CAD NM History: Stress Tests Stress or Imaging Studies Performed No History: Arrhythmias Selection Items Atrial fibrillation History: Other Disease Selection Items CAD CHF COPD HTN Renal Failure/Insufficiency History: NM/CV Data Previous CABG Date 02/09/2006 History: Other Current Smoker Method Yes Cigarettes Labs Hgb (g/dl) Hct (%) WBC (l/cumm) Platelets (thousands) 11.60-17.00 35.00-51.00 4.00-11.00 150.00-450.00 11.7 34.6 8.9 168 Glucose (mg/dl) BUN (mg/dl) Creatinine (mg/dl) BUN:Creatinine (1:x) 74.00-106.00 7.00-18.00 0.50-1.30 10.00-20.00 96 27 0.9 30 Na (meq/l) K (meq/l) 136.00-145.00 3.50-5.10 142 4.4 INR (PTT:PT) 0.90-1.10 1.6 Troponin I (ng/ml) CPK (u/l) CPK-MB (ng/ML) 0.02-0.05 26.00-308.00 0.50-3.60 0.02 34 Not Drawn Medication Medication Total Dose (Bolus/Oral) Medication Total Dosage/Unit 1% XYLOCAINE 50 mL VERSED 0.5 mg Medications (Bolus/Oral) Medication Time Given Dosage/Unit Administered By Reason 1% XYLOCAINE 02/26/2017 2:26:42 PM 20 mL Macho Juarez 20 mL 1% XYLOCAINE given in lab by Macho Juarez in Right Groin via Subcutaneous. Ordered by Macho Duran. VERSED 02/26/2017 2:27:27 PM 0.5 mg Skyler Henderson 0.5 mg VERSED given in lab by Skyler Henderson RN in Right Antecubital via Peripheral IV. Ordered by Macho Webb. 1% XYLOCAINE 02/26/2017 2:46:14 PM 10 mL Macho Juarez 10 mL 1% XYLOCAINE given in lab by Macho Juarez in Left Arm via Subcutaneous. Ordered by Macho Juarez. left brachial 1% XYLOCAINE 02/26/2017 3:05:13 PM 20 mL Macho Juarez 20 mL 1% XYLOCAINE given in lab by Macho Juarez in Left Groin via Subcutaneous. Ordered by Macho Larios. Medication (Drip) Medication Time Given Dosage/Unit Concentration/Unit Diluent (ml) Solution IV Bolus 02/26/2017 3:38:50 PM 500 mL (Bolus) 500 D5W .9 NaCl 500 mL (Bolus) IV Bolus given in lab by Delio Wynne RN in Right Antecubital via Peripheral IV. Using D5W .9 NaCl. Ordered by Macho Juarez. Initial Case Assessment Cardiovascular HR Rhythm NIBP Chest Pain 96 regular 147/100 0 Edema Present Skin color Skin Moderate Normal Warm Circulatory - Right Pulses Dorsalis Pedis Posterior Tibial Femoral 1 1 1 Scale (0,1,2,3,4,d) Circulatory - Left Pulses Dorsalis Pedis Posterior Tibial Femoral 1 1 1 Scale (0,1,2,3,4,d) Circulatory - Lower Extremities Color Lower Right Color Lower Left Normal Normal Neurological State Oriented to time-place- Alert Moves all extremities person Respiration - General Respiration Rate SpO2 (%) O2 (lpm) (B/min) 22 97 2 Final Case Assessment Cardiovascular HR Rhythm NIBP Chest Pain 80 regular 132/98 0 Edema Present Skin color Skin Moderate Normal Warm Dry Circulatory - Right Pulses Dorsalis Pedis Posterior Tibial Femoral 1 1 1 Scale (0,1,2,3,4,d) Circulatory - Left Pulses Dorsalis Pedis Posterior Tibial Femoral 1 1 1 Scale (0,1,2,3,4,d) Circulatory - Lower Extremities Color Lower Right Color Lower Left Normal Normal Neurological State Oriented to time-place- Alert Moves all extremities person Respiration - General Respiration Rate SpO2 (%) O2 (lpm) (B/min) 20 97 2 Chronological Log Time Study Chronological Log 13:55:00 Patient arrived via Bed. 13:55:00 Patient Name, D.O.B, / Armband Verified By R.N. 13:55:00 Consent signed by the physician and the patient and verified by the Bi Consultant staff. 13:55:00 Pre-op and post- op instructions given; patient acknowledges understanding of instructions. 13:56:00 Verbal Stimulation=2 Physical Stimulation=2 Airway=2 Respiration=2 TOTAL=8. (0=absent, 1=li mited, 2=present) 13:57:00 Presedation assessment performed by Bi Consultant RN. 13:58:00 Patient has been NPO for More than 6Hrs. 14:00:00 Skin Breakdown-multiple skin tears bilateral extremities 14:01:00 Patient Warmer Placed on the Table. 14:02:00 Disposable Defibrillator Pads Placed On Patient. 14:03:00 Haley Prominences Protected 14:04:00 History and physical on the chart or being dictated. Vitals capture started with the following parameters, Patient=Adult, Interval=5 min, Initial Pr thbpst=336 mmHg, 14:17:06 Deflation Rate=5 mmHg, Cuff placed on Right Arm 14:18:00 Bilateral groins prepped with 2% chlorhexidine, and draped after a 3 minute waiting time. 14:18:04 HR=80 bpm, GQXJ=627/100 mmhg, SpO2=98.0 %, Resp=21 B/min, Pain=0, Wes=9, Kaur=2 14:22:52 HR=79 bpm, URGI=074/85 mmhg, SpO2=98.0 %, Resp=27 B/min, Pain=0, Wes=7, Kaur=2 14:23:32 A # 20 IV was noted in the Antecubital (right). Grade = 0 14:25:24 Pressure channel 1 zeroed. Time Out. Correct patient, correct procedure, correct physician, power injector loaded, or not loaded with contrast with 14::38 surgical team present. Time Out Concurred by MD and individual staff in procedure. 14:26:41 Case Start 20 mL 1% XYLOCAINE given in lab by Macho Juarez in Right Groin via Subcutaneous. Ordered by Ann, 14::42 Macho. 14:27:27 0.5 mg VERSED given in lab by Skyler Henderson RN in Right Antecubital via Peripheral IV. Or dered by Macho Juarez. 14:27:55 HR=80 bpm, ZMYV=465/88 mmhg, SpO2=96.0 %, Resp=22 B/min, Pain=0, Wes=9, Kaur=[address] Juarez notified that INR is 1.6 and that pt received lovenox at 0510 this morn ing 02/26/18. He is ok 14:30:00 to proceed. 14:30:52 Dr Juarez holding pressure on right femoral artery. Changing to brachial access per MD Assessment: Initial Case, HR=96 BPM, Rhythm=regular, QBIN=507/100 mmhg, Chest Pain=0, Edema=Mod , Color=Normal, Skin = Warm Right Pulses: Augustine Ped=1, Post Tib=1, Femoral=1 Left Pulses: Augustine Ped=1, Post Tib=1, Femoral=1 14:31:49 Lower Right Extremities: Color=Normal Lower Left Extremities: Color=Normal Neurological: State=Alert, Ox3, OLMOS Respiration: Resp=22 B/min, SpO2=97 %, O2=2 lpm 14:31:55 Reference ECG taken 14:33:33 HR=80 bpm, VNFJ=671/89 mmhg, SpO2=96.0 %, Resp=20 B/min, Pain=0, Wes=9, Kaur=2 14:37:54 HL=939 bpm, DMSR=156/70 mmhg, Resp=11 B/min, Pain=0, Wes=9, Kaur=2 14:44:23 HR=79 bpm, ULYN=160/88 mmhg, SpO2=98.0 %, Resp=19 B/min, Pain=0, Wes=9, Kaur=2 10 mL 1% XYLOCAINE given in lab by Macho Juarez in Left Arm via Subcutaneous. Ordered by Macho Shore. 14:46:14 left brachial 14:47:56 HR=80 bpm, LPEM=144/93 mmhg, SpO2=99.0 %, Resp=20 B/min, Pain=0, Wes=9, Kaur=2 14:52:57 HR=85 bpm, ZJQY=641/102 mmhg, Resp=28 B/min, Pain=0, Wes=9, Kaur=2 14:57:58 HR=80 bpm, ZFFQ=795/100 mmhg, SpO2=99.0 %, Resp=20 B/min, Pain=0, Wes=9, Kaur=2 15:01:30 Could not get access via left brachial. moving to left groin per MD 15:03:40 HR=79 bpm, EWPR=923/103 mmhg, SpO2=99.0 %, Resp=21 B/min, Pain=0, Wes=9, Kaur=2 15:05:13 20 mL 1% XYLOCAINE given in lab by Macho Juarez in Left Groin via Subcutaneous. Ordered by Macho Juarez. 15:07:11 Access site was Left Femoral Artery. 15:07:25 A SHEATH, FR4 TERUMO (10CM) FR 4 was advanced into the Fem Art (left) using the Modified Se hurt technique. 15:07:56 HR=80 bpm, NQFN=563/111 mmhg, SpO2=98.0 %, Resp=16 B/min, Pain=0, Wes=9, Kaur=2 15:08:35 Saturation: Site=Ao (Aorta) , O2=98.9 %, Hgb=11.7 gm/dl, Condition=Condition 1. Used in [facility]. 15:09:45 Access site was Left Femoral Vein. 15:09:53 A SHEATH, FR5.5 PRELUDE 11CM FR 5.5 was advanced into the Fem Vein (left) using the Modcrystal nieves Seldinger technique. 15:10:40 [place] Catheter Removed Recorded Pressure: PCW, HR=80, Condition=Condition 1 15:12:47 (Pulmonary Capillary Wedge) PCW Recorded Pressure: MPA, HR=80, Condition=Condition 1 15:13:07 (Main Pulmonary Artery) MPA 33/ Saturation: Site=MPA (Main Pulmonary Artery) , O2=65.3 %, Hgb=11.7 gm/dl, Condition=Condition 1 . Used in ::17 calculation. 15:13:56 HR=80 bpm, RXFQ=576/113 mmhg, SpO2=99.0 %, Resp=23 B/min, Pain=0, Wes=9, Kaur=2 Recorded Pressure: RV, HR=81, Condition=Condition 1 15:14:03 (Right Ventricle) RV 34 Recorded Pressure: RA, HR=80, Condition=Condition 1 15:14:16 (Right Atrium) RA 15:14:42 Saturation: Site=RA (Right Atrium) , O2=69 %, Hgb=11.7 gm/dl, Condition=Condition 1. Used i n calculation. A JR 4.0 INFINITI CATHETER FR 4 was advanced over a wire. OMNIPAQUE, 350 MG, 150ML 150ML was us ed for 15:15:32 injections. Recorded Pressure: LV, HR=83, Condition=Condition 1 15:16:04 (Left Ventricle) LV 96/13/17 15:16:21 The LV was manually injected with 50 cc's and visualized. OMNIPAQUE, 350 MG, 150ML 150ML us ed. Recorded Pressure: LV, Ao, HR=80, Condition=Condition 1 15:16:35 (Left Ventricle) LV 105/11/15, (Aorta) Ao 110/84/96 15:17:11 The RCA was injected and visualized at various angles. OMNIPAQUE, 350 MG, 150ML 150ML used . 15:18:04 HR=80 bpm, ZEBM=099/123 mmhg, SpO2=99.0 %, Resp=21 B/min, Pain=0, Wes=9, Kaur=2 Recorded Pressure: Ao, HR=80, Condition=Condition 1 15:20:15 (Aorta) Ao 113/90/100 15:21:13 The SVG-RCA was injected and visualized at various angles. OMNIPAQUE, 350 MG, 150ML 150ML u sed. occluded 15:21:20 The SVG-OM was injected and visualized at various angles. OMNIPAQUE, 350 MG, 150ML 150ML us ed. occluded 15:21:42 The SVG-DIAG was injected and visualized at various angles. OMNIPAQUE, 350 MG, 150ML 150ML used. 15:23:01 HR=80 bpm, GLTJ=734/120 mmhg, SpO2=99.0 %, Resp=12 B/min, Pain=0, Wes=9, Kaur=2 After removing the current catheter a MPA-2 INFINITI CATHETER FR 4 was advanced over a WIRE, EX CHANGE 260CM 15:26:58 3MMJ 260CM. 15:27:58 HR=80 bpm, QQNE=168/95 mmhg, Resp=19 B/min, Pain=0, Wes=9, Kaur=2 15:28:24 260cm exchange Wire removed 15:28:27 A WIRE, HYDROSTEER 260CM ANGLED GLIDE 260CM was inserted via Fem Art (right). 15:32:59 HR=80 bpm, JQEB=102/80 mmhg, Resp=23 B/min, Pain=0, Wes=9, Kaur=2 After removing the current catheter a IM INFINITI CATHETER FR 4 was advanced over a WIRE, HYDRO STEER 260CM 15:33:32 ANGLED GLIDE 260CM. After removing the current catheter a JL 4.0 INFINITI CATHETER FR 4 was advanced over a WIRE, H YDROSTEER 15:36:22 260CM ANGLED GLIDE 260CM. 15:37:42 The LCA was injected and visualized at various angles. OMNIPAQUE, 350 MG, 150ML 150ML used . 15:37:54 HR=80 bpm, QWYN=825/75 mmhg, Resp=19 B/min, Pain=0, Wes=9, Kaur=2 Patient complaining of chest pain and back pain. Dr. Juarez verbalizes he wants patient to go directly to CT post 15:38:00 cath. 500 mL (Bolus) IV Bolus given in lab by Delio Wynne RN in Right Antecubital via Peripheral IV. Using D5W .9 NaCl. 15:38:50 Ordered by Macho Juarez. 15:38:50 Catheter was removed 15:39:43 NIBP STAT measurement started. 15:40:50 Wire removed 15:40:57 Pt states she is chest pain free 15:41:19 HR=80 bpm, CPDJ=403/81 mmhg, Resp=18 B/min, Pain=0, Wes=9, Kaur=2 15:41:[address] Juarez verbalizes he no longer believes patient requires CT scan. 15:42:53 HR=80 bpm, CZDF=331/98 mmhg, SpO2=97.0 %, Resp=21 B/min, Pain=0, Wes=9, Kaur=2 15:45:48 Catheter(s) removed without difficulty Assessment: Final Case, HR=80 BPM, Rhythm=regular, NWMP=196/98 mmhg, Chest Pain=0, Edema=Mod, Color=Normal, Skin = Warm, Dry Right Pulses: Augustine Ped=1, Post Tib=1, Femoral=1 Left Pulses: Augustine Ped=1, Post Tib=1, Femoral=1 15:45:51 Lower Right Extremities: Color=Normal Lower Left Extremities: Color=Normal Neurological: State=Alert, Ox3, OLMOS Respiration: Resp=20 B/min, SpO2=97 %, O2=2 lpm 15:46:37 No case complications noted. 15:46:38 Cine recording checked. 15:46:42 DOCU called. Spoke to BHAVYA Reed 15:46:55 Bedside Report will be given. 15:47:01 Verbal Stimulation=2 Physical Stimulation=2 Airway=2 Respiration=2 TOTAL=8. (0=absent, 1=l imited, 2=present) 15:48:07 Sterile dressing applied to site. Sheaths will be pulled in DOCU. 15:48:47 A Left and Right Heart Cath was performed. 15:48:49 [facility] Study - Contrast Media Used In Study Contrast Total Opened (mL) Total Used (mL) Total Wasted (mL) Omnipaque 150 100 50 End Study - Maximum Contrast Load Max Contrast Load (mL) 335.9 End Study - Radiation Exposure Fluoro Time (minutes) 15.0 End Study - Patient Disposition Complications Transferred To Interventional Outcome No Telemetry Bed No attempt made
[2017-02-26] MEDS ORDERED: MISC INFORMATION XX ONE (16:15)
[2017-02-26] MEDS ORDERED: SODIUM CHLORIDE 0.9% FLUSH 10 ML FLUSH IV FLUSH PRN (16:15)
--- NOTE | 2017-02-26 16:23 | PD.CAR.PN ---
CVT Progress Note Subjective/Hospital Course: referral received full consult TF J Patient stable now Neurologically remains intact The dizziness and vertigo she had is now gone in this more and more looks like a TIA Neurology consult greatly appreciated At this point agree with neurologist and I will address carotid artery while patient still in the hospital Patient is known to cardiac problems and I reviewed her echocardiogram Cardiology consulted, spoken to Dr Juarez. All things equal for right carotid endarterectomy after cardiac cath, likely Thursday or Thursday02/26/17 Patient doing better now Vertigo is gone She underwent cardiac catheterization today which reveals patent coronary vessels and fairly normal intracardiac pressures Have discussed this with Dr. Juarez At this point patient is a moderate high risk for carotid endarterectomy In face of 70% stenosis in neurologic symptoms I'm hard pressed not to offer patient to surgery as an option Patient for right carotid endarterectomy tomorrow Objective: Vital Signs Date Time Temp Pulse Resp B/P (MAP) Pulse Ox O2 Delivery O2 Flow Rate FiO2 02/26/17 12:00 80 02/26/17 11:17 98.2 80 20 133/94 (107) 96 02/26/17 08:00 80 02/26/17 07:26 97.9 80 16 91/60 (70) 95 02/26/17 07:00 95 Room Air 02/26/17 04:42 81 02/26/17 04:42 Room Air 02/26/17 04:01 97.8 79 18 102/58 (73) 95 02/26/17 00:15 98.0 79 18 108/68 (81) 95 02/25/17 21:01 97.9 87 19 129/76 (93) 94 Labs: Laboratory Tests Test 02/26/17 06:15 White Blood Count 8.9 TH/MM3 (4.0-11.0) Red Blood Count 3.85 MIL/MM3 (4.00-5.30) Hemoglobin 11.7 GM/DL (11.6-15.3) Hematocrit 34.6 % (35.0-46.0) Mean Corpuscular Volume 89.7 FL (80.0-100.0) Mean Corpuscular Hemoglobin 30.4 PG (27.0-34.0) Mean Corpuscular Hemoglobin Concent 33.9 % (32.0-36.0) Red Cell Distribution Width 16.5 % (11.6-17.2) Platelet Count 168 TH/MM3 (150-450) Mean Platelet Volume 7.6 FL (7.0-11.0) Result Diagram: 02/26/17 0615 02/26/17 0351 Chin Alcazar MD Feb 26, 2017 16:23
[2017-02-26] MEDS ORDERED: ceFAZolin 2 GM PREMIX 50 ML IV SCH (16:30)
[2017-02-26] MEDS ORDERED: SODIUM CHLORID 0.9% 500 ML INJ 500 ML IV SCH (17:00)
[2017-02-26] MEDS ORDERED: DOPamine INJ PREMIX 500 ML ONE (17:18)
--- NOTE | 2017-02-26 17:54 | EKG ---
Date Performed: 02/26/2017 Time Performed: 17:11:37 PTAGE: 61 years EKG: Baseline artifact present ELECTRONIC ATRIAL PACEMAKER ABNORMAL RHYTHM ECG No significant ch ashlee from prior electrocardiogram. PREVIOUS TRACING : 02/22/2017 05.12 DOCTOR: Alessandro Sow Interpretating Date/Time 02/26/2017 17:53:13
[2017-02-26] MEDS: IOHEXOL 350 MG/ML 100 ML BTL (for Cath Lab) OTHER ONE (18:08)
[2017-02-26 18:13] LABS: HEMATOCRIT 32.1 % (35.0-46.0); HEMOGLOBIN 10.7 GM/DL (11.6-15.3)
[2017-02-26 18:31] LABS: INTERNATIONAL NORMALIZED RATIO 1.5 RATIO; PROTHROMBIN TIME - PATIENT 15.5 SEC (9.8-11.6)
[2017-02-26 18:34] LABS: ALBUMIN 3.1 GM/DL (3.4-5.0); ALT (GPT) 13 U/L (10-53); AST (GOT) 11 U/L (15-37); BICARBONATE 25.6 MEQ/L (21.0-32.0); BLOOD UREA NITROGEN 29 MG/DL (7-18); CALCIUM 7.8 MG/DL (8.5-10.1); CHLORIDE 110 MEQ/L (98-107); CREATININE 0.91 MG/DL (0.50-1.00); GLOMERULAR FILTRATION RATE 63 ML/MIN (>89); GLUCOSE,RANDOM 176 MG/DL (74-106); MAGNESIUM 2.2 MG/DL (1.5-2.5); PHOSPHORUS 2.3 MG/DL (2.5-4.9); SODIUM (NA) 143 MEQ/L (136-145)
[2017-02-26 18:36] LABS: ALKALINE PHOSPHATASE 81 U/L (45-117); TOTAL BILIRUBIN ADULT 0.7 MG/DL (0.2-1.0); TOTAL PROTEIN 6.5 GM/DL (6.4-8.2)
--- NOTE | 2017-02-26 18:46 | PD.PROCEDR ---
Central Line Procedure REASON FOR PROCEDURE Central venous access PROCEDURE PERFORMED Central line placement: Left IJ central line US guided CONSENT Informed consent for procedure was obtained from patient ANESTHESIA Local injection of 1% Lidocaine DESCRIPTION OF THE PROCEDURE The patient was placed in supine, mild Trendelenburg position. The area was exposed and cleansed with ChloraPrep, times two. Large sterile drape was used to cover the patient, with the site exposed, under sterile conditions including cap, face mask, sterile gown, and sterile gloves. On single attempt, the introducer needle was inserted with negative pressure in syringe and venous flash was obtained. The guide wire was then advanced without any restriction and the needle was removed. The dilator was used without any complications. Using Seldinger technique the 20 cm 7F catheter was advanced over the guide wire to a depth of 18 centimeters. The guide wire was removed. All ports were aspirated with dark venous blood return and flushed easily with sterile saline. All ports were capped. Antibiotic disc was placed around central line at puncture site. The central line was secured to the skin with two interrupted 2.0 silk sutures. The area was bandaged with sterile see-through central line bandage. RADIOLOGICAL DATA Ultrasound guidance was used to locate LIJ. Doppler/color flow was used to confirm venous flow. COMPLICATIONS: No apparent complications ESTIMATED BLOOD LOSS: Less than 1 cc. Padmaja Wan MD Feb 26, 2017 18:46
--- NOTE | 2017-02-26 18:46 | RADRPT ---
EXAM DATE/TIME: 02/26/2017 18:12 [facility] COMPARISON: CHEST SINGLE AP, February 22, 2017, 4:52. INDICATIONS : Evaluate central line placement, possible disection MEDICAL HISTORY : Cardiovascular disease. Hypertension. Chronic obstructive pulmonary disease SURGICAL HISTORY : Pacemaker. CABG. ENCOUNTER: Subsequent ACUITY: 4 - 6 days PAIN SCORE: Non-responsive. LOCATION: Bilateral chest FINDINGS: Overall the appearance of the study is stable. Low lung volumes with elevation of left hemidiaphragm. Left basilar atelectasis. No infiltrate or effusion. Significant cardiomegaly. Left-sided pacing dev ice. Median sternotomy wires. Multiple overlying structures. CONCLUSION: Stable exam with cardiomegaly and left basilar atelectasis. Kiet Camarena Jr., MD on February 26, 2017 at 18:43 Board Certified Radiologist. This report was verified electronically.
[2017-02-26] MEDS ORDERED: MORPHINE SULFATE 2 MG/ML INJ ONE (18:54)
[2017-02-26] MEDS ORDERED: EPINEPHrine HCL (1:10,000) 1 MG/10 ML SYRINGE ONE (19:00)
--- NOTE | 2017-02-26 19:04 | ECHRPT ---
Indication: R/O TAMPONADE, S/P CATH CONCLUSIONS Limited Echo Poor echocardiographic windows Trace Pericardial Effusion No tamponade identified Decrease LV systolic function BP: / HR: Rhythm: Sinus Technical Quality:Very technically difficult study Alan Jenkins MD (Electronically Signed) Final Date:26 February 2017 19:03
[2017-02-26] MEDS ORDERED: IOHEXOL 350 MG/ML 10 ML VIAL (for RAD DIAG) IVCONTRAST ONE (19:55)
--- NOTE | 2017-02-26 20:01 | RADRPT ---
EXAM DATE/TIME: 02/26/2017 19:19 [facility] COMPARISON: No previous studies available for comparison. INDICATIONS : Abdomen pain after heart cath IV CONTRAST: 98 cc Omnipaque 350 (iohexol) IV RADIATION DOSE: 17.11 CTDIvol (mGy) MEDICAL HISTORY : Cerebrovascular disease. Chronic obstructive pulmonary disease. Cardiovascular diseaseDiabetes,thyroi d dis,hypertension SURGICAL HISTORY : CABG Pacemaker. ENCOUNTER: Initial ACUITY: 1 day PAIN SCALE: 6/10 LOCATION: Abdomen TECHNIQUE: Volumetric scanning was performed using a multi-row detector CT scanner. The data was post processed with a variety of visualization algorithms including full volume maximum intensity projection, multi -planar sliding thin slab reformation, curved planar reformation, and surface rendering techniques. Using automated exposure control and adjustment of the mA and/or kV according to patient size, radiat ion dose was kept as low as reasonably achievable to obtain optimal diagnostic quality images. DICOM format image data is available electronically for review and comparison. FINDINGS: Thoracic/abdominal aorta: Diffuse atherosclerotic plaque throughout the thoracic and abdominal aorta. No dissection or aneurysm al change. 30% stenosis involving the celiac origin. 50% stenosis involving the SMA origin. WU and r enal arteries are patent. Heart and mediastinum: Moderate cardiomegaly without pericardial effusion. Pulmonary arteries are normal in caliber. No mass or adenopathy. Lung parenchyma: There is significant elevation of the left diaphragm with associated left basilar atelectasis. Minima l basilar atelectasis on the right. No mass or infiltrate. Other structures: There is micro-lobulation seen involving the contour of the liver. Small calcified gallstones layerin g within an otherwise unremarkable gallbladder. A large anterior abdominal wall hematoma is seen ante riorly. This measures 25 x 20 x 15 cm. CONCLUSION: 1. Large anterior abdominal wall hematoma. 2. No aortic dissection or aneurysm. 3. Changes involving the liver suggesting cirrhosis. 4. Cholelithiasis. 5. Bibasilar atelectasis. 6. Cardiomegaly. Kiet Camarena Jr., MD on February 26, 2017 at 19:55 Board Certified Radiologist. This report was verified electronically.
--- NOTE | 2017-02-26 20:42 | EKG ---
Date Performed: 02/26/2017 Time Performed: 17:59:40 PTAGE: 61 years EKG: Sinus arrhythmia with PVC(s). ST junctional depression is nonspecific Borderline ECG Compar ed to prior electrocardiogram, Premature ventricular contractions are now present PREVIOUS TRACING : 02/26/2017 17.11 DOCTOR: Alessandro Sow Interpretating Date/Time 02/26/2017 20:40:32
[2017-02-26] MEDS: ATORVASTATIN 40 MG TAB PO SCH (21:00)
--- NOTE | 2017-02-26 21:31 | PD.CONS ---
[facility] Service Critical Care Medicine Consult Requested By Primary Care Physician Agnes Rubio MD History of Present Illness 61-year-old female with a past medical history significant for CAD status post CABG, atrial fibrillation, diabetes mellitus, polycystic kidney disease, CHF ( echo with EF of 55-60% in 2015), hypertension, hyperlipidemia and hypothyroidism presents to the emergency department complaining of dizziness and falling. Her CT of the neck show 70% occlusive disease off right carotid artery and she was planned to undergo right carotid endarterectomy. Further vascular procedures she underwent elective cardiac catheterization that shows patent vessels without significant obstructive disease. Shortly after procedure patient developed severe hypotension and tachycardia with systolic blood pressure at 60s and significant decrease in hemoglobin. She was taken emergently to CT of the abdomen/aorta runoff, the didn't show any dissection or aneurysm however shows large hematoma of abdominal wall. Review of Systems Constitutional: COMPLAINS OF: Dizziness, DENIES: Diaphoretic episodes, Fatigue , Fever, Weight gain, Weight loss, Chills, Change in appetite, Night Sweats Endocrine: DENIES: Abnorml menstrual pattern, Heat/cold intolerance, Polydipsia , Polyuria, Polyphagia Eyes: DENIES: Blurred vision, Diplopia, Eye inflammation, Eye pain, Vision loss , Photosensitivity, Double Vision Ears, nose, mouth, throat: DENIES: Tinnitus, Hearing loss, Vertigo, Nasal discharge, Oral lesions, Throat pain, Hoarseness, Ear Pain, Running Nose, Epistaxis, Sinus Pain, Toothache, Odynophagia Respiratory: DENIES: Apneas, Cough, Snoring, Wheezing, Hemoptysis, Sputum production, Shortness of breath Cardiovascular: DENIES: Chest pain, Palpitations, Syncope, Dyspnea on Exertion , PND, Lower Extremity Edema, Orthopnea, Claudication Gastrointestinal: DENIES: Abdominal pain, Black stools, Bloody stools, Constipation, Diarrhea, Nausea, Vomiting, Difficulty Swallowing, Anorexia Genitourinary: DENIES: Abnormal vaginal bleeding, Dysmenorrhea, Dyspareunia, Sexual dysfunction, Urinary frequency, Urinary incontinence, Urgency, Hematuria , Dysuria, Nocturia, Vaginal discharge Musculoskeletal: DENIES: Joint pain, Muscle aches, Stiffness, Joint Swelling, Back pain, Neck pain Integumentary: DENIES: Abnormal pigmentation, Pruritus, Rash, Nail changes, Breast masses, Breast skin changes, Nipple discharge Hematologic/lymphatic: DENIES: Bruising, Lymphadenopathy Immunologic/allergic: DENIES: Eczema, Urticaria Neurologic: COMPLAINS OF: Abnormal gait, Poor Balance, DENIES: Headache, Localized weakness, Paresthesias, Seizures, Speech Problems, Tremor Psychiatric: DENIES: Anxiety, Confusion, Mood changes, Depression, Hallucinations, Agitation, Suicidal Ideation, Homicidal Ideation, Delusions Past Family Social History Allergies: Coded Allergies: azithromycin (Unverified Allergy, Severe, 02/04/17) CAN NOT TAKE DUE TO STUDY MED cyclosporine (Unverified Allergy, Severe, 02/04/17) CAN NOT TAKE DUE TO STUDY MEDS erythromycin base (Unverified Allergy, Severe, 02/04/17) CAN NOT TAKE DUE TO STUDY MEDS vancomycin (Unverified Allergy, Severe, FACIAL SWELLING, 02/04/17) levofloxacin (Unverified Allergy, Mild, ITCHING, 02/04/17) MRI PRECAUTION (Verified Adverse Reaction, Severe, PACEMAKER/ DEFRIBRILLATOR, 02/22/17) [place] [employer] PACER/DEFIBRILLATOR/JLA 02/22/17 *MDRO Multi-Drug Resistant Organism (Unverified Adverse Reaction, Unknown , 02/04/17) MRSA PCR Screen negative 09/01/14. Past Medical History Atrial fibrillation status post ablation 4 CAD status post CABG and WI 2 CHF with an EF of 55-60% in 2014 Hypertension Hyperlipidemia Polycystic kidney disease Hypothyroidism Past Surgical History CABG 4 in 2006 AICD placement in 2006 Ablation 4 for A. fib, V. fib BTL Tonsillectomy Reported Medications Reported Meds & Active Scripts Active Reported Xanax (Alprazolam) 0.25 Mg Tab 0.25 Mg PO Q6H PRN Entresto (Sacubitril-Valsartan) 97-103 Mg Tab 2 Tab PO DAILY Crete (Hydrocodone-Acetaminophen) 5-325 mg Tab 1 Tab PO Q6H PRN Proair Hfa 8.5 GM Inh (Albuterol Sulfate) 90 Mcg/Act Aer 2 Puff INH Q4-6H PRN 108 mcg/actuation Bumetanide 1 Mg Tab 1 Mg PO DAILY Venlafaxine ER 24 HR (Venlafaxine HCl) 75 Mg Tab 75 Mg PO DAILY Synthroid (Levothyroxine Sodium) 100 Mcg Tab 200 Mcg PO DAILY Amiodarone (Amiodarone HCl) 200 Mg Tab 200 Mg PO DAILY Spironolactone 25 Mg Tab 12.5 Mg PO DAILY Warfarin 5 Mg Tab 5.5 Mg PO DAILY Atorvastatin (Atorvastatin Calcium) 40 Mg Tab 40 Mg PO HS Omeprazole 20 Mg Tab 20 Mg PO DAILY Prednisone 5 Mg Tab 5 Mg PO BID Metoprolol Tartrate 50 Mg Tab 50 Mg PO BID Isosorbide Mononitrate ER (Isosorbide Mononitrate) 30 Mg Nancy 30 Mg PO DAILY Active Ordered Medications Current Medications Medications (Trade) Dose Ordered Sig/Alexa Route PRN Reason Start Time Stop Time Status Last Admin Dose Admin Aspirin (Aspirin) 325 mg DAILY PO 02/23/17 09:00 Future Hold 02/25/17 08:24 Insulin Aspart (NovoLOG SUPPLEMENTAL SCALE) 1 ACHS SQ 02/22/17 12:00 02/22/17 22:07 Dextrose (D50w (Vial) Inj) 50 ml UNSCH PRN IV PUSH HYPOGLYCEMIA-SEE COMMENTS 02/22/17 09:45 Glucagon (Glucagon Inj) 1 mg UNSCH PRN OTHER HYPOGLYCEMIA-SEE COMMENTS 02/22/17 09:45 Amiodarone HCl (Cordarone) 200 mg DAILY PO 02/23/17 09:00 02/26/17 09:19 Atorvastatin Calcium (Lipitor) 40 mg HS PO 02/22/17 21:00 02/25/17 21:29 Bumetanide (Bumetanide) 1 mg DAILY PO 02/23/17 09:00 Future Hold Isosorbide Mononitrate (Imdur) 30 mg DAILY@0700 PO 02/23/17 07:00 02/26/17 09:19 Levothyroxine Sodium (Synthroid) 200 mcg DAILY@0600 PO 02/23/17 06:00 02/26/17 05:08 Metoprolol Tartrate (Lopressor) 50 mg BID PO 02/22/17 21:00 02/26/17 09:18 Sacubitril/ Valsartan (Entresto 97-103 Mg) 1 tab BID PO 02/22/17 21:00 Future Hold 02/22/17 21:16 Spironolactone (Aldactone) 12.5 mg DAILY PO 02/23/17 09:00 Future Hold Venlafaxine HCl (Effexor Xr) 75 mg DAILY PO 02/23/17 09:00 02/26/17 09:19 Pantoprazole Sodium (Protonix) 20 mg DAILY PO 02/23/17 09:00 02/26/17 09:19 Miscellaneous (Pill Splitter) 1 ea UNSCH PRN OTHER SEE LABEL COMMENTS 02/22/17 11:00 Alprazolam (Xanax) 0.25 mg Q6H PRN PO ANXIETY 02/22/17 13:00 02/26/17 16:25 Acetaminophen/ Hydrocodone Bitart (Crete 5-325 Mg) 1 tab Q6H PRN PO PAIN 02/22/17 13:00 02/26/17 16:03 Prednisone (Deltasone) 5 mg BID PO 02/22/17 21:00 02/26/17 09:19 Sodium Chloride (NS Flush) 2 ml BID IV FLUSH 02/26/17 21:00 Sodium Chloride (NS Flush) 2 ml UNSCH PRN IV FLUSH FLUSH AFTER USING IV ACCESS 02/26/17 16:15 Cefazolin Sodium/ Dextrose 50 ml @ 100 mls/hr [employer] IV 02/26/17 16:30 03/01/17 16:29 Family History Father with CAD Social History Denies alcohol, tobacco or illicit drugs. Physical Exam Vital Signs Vital Signs Date Time Temp Pulse Resp B/P (MAP) Pulse Ox O2 Delivery O2 Flow Rate FiO2 02/26/17 18:00 97.7 91 22 110/64 99 02/26/17 17:25 82 68/30 (43) 02/26/17 17:20 91 64/44 (51) 02/26/17 17:15 85 75/49 (58) 02/26/17 17:10 80 96/69 (78) 02/26/17 17:05 87/65 (72) 02/26/17 17:00 80 85/59 (68) 02/26/17 16:55 80 92/49 (63) 02/26/17 16:50 80 95/39 (57) 02/26/17 16:45 79 82/49 (60) 02/26/17 16:30 80 91/56 (68) 02/26/17 16:15 91 83/64 (70) 02/26/17 16:10 98 Room Air 02/26/17 16:00 81 122/71 (88) 02/26/17 12:00 80 1/18/18 11:17 98.2 80 20 133/94 (107) 96 02/26/17 08:00 80 02/26/17 07:26 97.9 80 16 91/60 (70) 95 02/26/17 07:00 95 Room Air 02/26/17 04:42 81 02/26/17 04:42 Room Air 02/26/17 04:01 97.8 79 18 102/58 (73) 95 02/26/17 00:15 98.0 79 18 108/68 (81) 95 02/25/17 21:01 97.9 87 19 129/76 (93) 94 Physical Exam GENERAL: Morbidly obese patient. In moderate distress, on facemask nonrebreather SKIN: Warm and dry. HEAD: Normocephalic. EYES: No scleral icterus. No injection or drainage. NECK: Supple, trachea midline. No JVD or lymphadenopathy. CARDIOVASCULAR: Regular rate and rhythm without murmurs, gallops, or rubs. RESPIRATORY: Breath sounds equal bilaterally. No accessory muscle use. GASTROINTESTINAL: Abdomen soft, non-tender, nondistended. Obese MUSCULOSKELETAL: No cyanosis, or edema. BACK: Nontender without obvious deformity. NEURO EXAM: GCS: 15 Mental Status: The patient is alert and oriented to person, place, and time with normal speech. Laboratory Laboratory Tests Test 02/26/17 03:51 02/26/17 06:15 02/26/17 17:50 02/26/17 18:10 White Blood Count 9.2 8.9 Red Blood Count 3.93 3.85 Hemoglobin 11.8 11.7 10.7 Hematocrit 35.2 34.6 32.1 Mean Corpuscular Volume 89.6 89.7 Mean Corpuscular Hemoglobin 30.0 30.4 Mean Corpuscular Hemoglobin Concent 33.5 33.9 Red Cell Distribution Width 16.5 16.5 Platelet Count 177 168 Mean Platelet Volume 7.7 7.6 Neutrophils (%) (Auto) 85.5 Lymphocytes (%) (Auto) 5.6 Monocytes (%) (Auto) 7.9 Eosinophils (%) (Auto) 0.7 Basophils (%) (Auto) 0.3 Neutrophils # (Auto) 7.8 Lymphocytes # (Auto) 0.5 Monocytes # (Auto) 0.7 Eosinophils # (Auto) 0.1 Basophils # (Auto) 0.0 CBC Comment DIFF FINAL Differential Comment Prothrombin Time 16.5 15.5 Prothromb Time International Ratio 1.6 1.5 Blood Urea Nitrogen 27 29 Creatinine 0.99 0.91 Random Glucose 96 176 Calcium Level 8.6 7.8 Sodium Level 142 143 Potassium Level 4.4 4.2 Chloride Level 108 110 Carbon Dioxide Level 27.0 25.6 Anion Gap 7 7 Estimat Glomerular Filtration Rate 57 63 Activated Partial Thromboplast Time 26.1 Total Protein 6.5 Albumin 3.1 Phosphorus Level 2.3 Magnesium Level 2.2 Alkaline Phosphatase 81 Aspartate Amino Transf (AST/SGOT) 11 Alanine Aminotransferase (ALT/SGPT) 13 Total Bilirubin 0.7 Blood Gas Puncture Site RT RADIAL Blood Gas Patient Temperature 98.6 Blood Gas HCO3 22 Blood Gas Base Excess -2.6 Blood Gas Oxygen Saturation 95 Arterial Blood pH 7.33 Arterial Blood Partial Pressure CO2 44 Arterial Blood Partial Pressure O2 100 Arterial Blood Oxygen Content 13.4 Arterial Blood Carboxyhemoglobin 1.1 Arterial Blood Methemoglobin 1.5 Blood Gas Hemoglobin 10.0 Oxygen Delivery Device NRB Blood Gas Inspired Oxygen 100 Result Diagram: 02/26/17 1750 02/26/17 1750 Imaging Last 24 hours Impressions Chest X-Ray 02/26/17 1812 Signed Impressions: Service Date/Time: February 18:12 - CONCLUSION: Stable exam with cardiomegaly and left basilar atelectasis. Kiet Camarena Jr., MD Aorta CTA 02/26/17 0000 Signed Impressions: Service Date/Time: February 19:19 - CONCLUSION: 1. Large anterior abdominal wall hematoma. 2. No aortic dissection or aneurysm. 3. Changes involving the liver suggesting cirrhosis. 4. Cholelithiasis. 5. Bibasilar atelectasis. 6. Cardiomegaly. Kiet Camarena Jr., MD Septic Shock Reassessment Septic shock perfusion: reassessment completed Assessment and Plan Assessment and Plan Hypotension - Blood loss - Anterior abdominal wall hematoma - No obvious extravasation on the CT - Supportive care - Series of H&H - Monitor for coagulopathy Anemia - Due to above - Monitor H&H and transfuse for hemoglobin less than 8 Atrial fibrillation - Rate control - Telemetry - Hold anticoagulation due to blood loss Carotid stenosis - Endarterectomy by Dr. Sinclair when hemodynamically stable TIA - Due to above - Plan endarterectomy DVT GI prophylaxis - Teds SCDs - Hold pharmacological DVT prophylaxis due to acute blood loss - PPI Critical Care: The total critical care time was 35 minutes. Time to perform other separately billable procedures was not included in the critical care time. Sean Serna MD Feb 26, 2017 9:31 pm
[2017-02-26] MEDS ORDERED: TERBUTALINE INJ 1 MG/ML AMP SQ PRN (22:00)
[2017-02-26] MEDS ORDERED: DOPamine 800 MG/D5W PREMIX 500 ML IV PRN (22:00)
[2017-02-26] MEDS ORDERED: DOPamine INJ 800 MG in DEXTROSE 5% IN WATE 500 ML INJ 480 ML IV PRN ×2 (22:30)
[2017-02-26] MEDS ORDERED: NOREPINEPHRINE-DEXTROSE DRIP 250 ML IV ONE (22:51)
[2017-02-26] MEDS ORDERED: ONDANSETRON HCL 4 MG/2 ML VIAL IV PUSH PRN (23:00)
[2017-02-26] MEDS ORDERED: NOREPINEPHRINE 4 MG/D5W 250 ML IV PRN (23:00)
[2017-02-26] MEDS ORDERED: PHENYLEPHRINE HCL 10 MG/ML VIAL ONE ×2 (23:42→23:48)
[2017-02-26] MEDS ORDERED: VASOPRESSIN 40 U/D5W 100 ML Titrate, Post Cardiac Surgery IV PRN ×2 (23:45)
[2017-02-27] VITALS (28 sets, daily range): BP systolic 102–134; BP diastolic 25–92; PULSE 77–145; RESP 17–24; TEMP 97.8–98.4; O2SAT 96–100
[2017-02-27] MEDS ORDERED: TERBUTALINE INJ 1 MG/ML AMP SQ PRN (00:15)
[2017-02-27] MEDS ORDERED: PHENYLEPHRINE 40 MG in D5W 500 ML IV PRN (00:15)
[2017-02-27] MEDS ORDERED: POTASSIUM CHLORIDE INJ 40 MEQ in SODIUM CHLORID 0.9% 500 ML INJ 500 ML IV-CENTRAL ONE (00:45)
[2017-02-27] MEDS ORDERED: CALCIUM CHLORIDE 10% SOLN 1 GRAM/10 ML SYR ONE (00:45)
[2017-02-27] MEDS ORDERED: CALCIUM GLUCONATE INJ 2 GM in SODIUM CHLORIDE 0.9% INJ 100 ML IV ONE (00:45)
[2017-02-27] MEDS ORDERED: SODIUM BICARBONATE 8.4% INJ 50 MEQ/50 ML SYR IV PUSH ONE ×2 (00:45)
[2017-02-27] MEDS ORDERED: SODIUM BICARBONATE 8.4% INJ 50 MEQ/50 ML SYR ONE (00:46)
[2017-02-27] MEDS ORDERED: POTASSIUM CHLOR 20 MEQ PREMIX 200 ML ONE (00:46)
[2017-02-27] MEDS ORDERED: SODIUM CHLOR 0.9% 1000 ML INJ 3,000 ML IV STA (00:48)
[2017-02-27] MEDS ORDERED: CALCIUM CHLORIDE 10% SOLN 1 GRAM/10 ML SYR IV ONE (01:00)
[2017-02-27] MEDS ORDERED: POTASSIUM CHLOR 20 MEQ PREMIX 200 ML IV ONE (01:00)
[2017-02-27] MEDS ORDERED: SODIUM BICARBONATE 8.4% INJ 50 MEQ/50 ML SYR IV ONE (01:00)
[2017-02-27] MEDS: PIPERACIL-TAZO 4.5 GM PREMIX 100 ML IV SCH ×4 (01:07→21:24)
[2017-02-27 01:17] LABS: AUTOMATED NEUTROPHIL # 20.2 TH/MM3 (1.8-7.7); BASOPHIL % 0.1 % (0.0-2.0); HEMATOCRIT 26.3 % (35.0-46.0); HEMOGLOBIN 9.1 GM/DL (11.6-15.3); LYMPH % 3.2 % (9.0-44.0); LYMPHOCYTE # 0.8 TH/MM3 (1.0-4.8); MEAN CELL VOLUME 88.2 FL (80.0-100.0); MEAN CORPUSCULAR HEMOGLOBIN 30.6 PG (27.0-34.0); MEAN CORPUSCULAR HGB CONC 34.7 % (32.0-36.0); MEAN PLATELET VOLUME 7.6 FL (7.0-11.0); MONO % 13.3 % (0.0-8.0); MONOCYTE # 3.2 TH/MM3 (0-0.9); NEUT % 83.4 % (16.0-70.0); PLATELET COUNT 203 TH/MM3 (150-450); RED BLOOD COUNT 2.99 MIL/MM3 (4.00-5.30); RED CELL DISTRIBUTION WIDTH 15.1 % (11.6-17.2); WHITE BLOOD COUNT 24.2 TH/MM3 (4.0-11.0)
[2017-02-27 01:36] LABS: ALBUMIN 2.7 GM/DL (3.4-5.0); BICARBONATE 20.8 MEQ/L (21.0-32.0); CALCIUM 6.8 MG/DL (8.5-10.1); CALCIUM-PROTEIN CORRECTED 7.8 MG/DL (8.5-10.1); CREATININE 1.29 MG/DL (0.50-1.00); TOTAL BILIRUBIN ADULT 1.1 MG/DL (0.2-1.0); TOTAL PROTEIN 5.2 GM/DL (6.4-8.2)
[2017-02-27 01:51] LABS: BANDS 11 % (0-6); LYMPHOCYTES 2 % (9-44); MONOCYTES 8 % (0-8); NEUTROPHIL # MANUAL DIFF 21.8 TH/MM3 (1.8-7.7); POLYS (SEG NEUTROPHILS) 79 % (16-70)
[2017-02-27] MEDS: MORPHINE SULFATE 2 MG/ML INJ IV PRN ×2 (02:10→05:30)
[2017-02-27] MEDS ORDERED: ALBUMIN 5% INJ 500 ML IV ONE (03:30)
[2017-02-27 03:58] LABS: AUTOMATED NEUTROPHIL # 14.3 TH/MM3 (1.8-7.7); BASOPHIL % 0.2 % (0.0-2.0); HEMATOCRIT 26.2 % (35.0-46.0); HEMOGLOBIN 8.7 GM/DL (11.6-15.3); LYMPH % 4.9 % (9.0-44.0); LYMPHOCYTE # 0.9 TH/MM3 (1.0-4.8); MEAN CELL VOLUME 89.1 FL (80.0-100.0); MEAN CORPUSCULAR HEMOGLOBIN 29.6 PG (27.0-34.0); MEAN CORPUSCULAR HGB CONC 33.2 % (32.0-36.0); MEAN PLATELET VOLUME 7.2 FL (7.0-11.0); MONO % 14.6 % (0.0-8.0); MONOCYTE # 2.6 TH/MM3 (0-0.9); NEUT % 80.3 % (16.0-70.0); PLATELET COUNT 149 TH/MM3 (150-450); RED BLOOD COUNT 2.95 MIL/MM3 (4.00-5.30); RED CELL DISTRIBUTION WIDTH 15.4 % (11.6-17.2); WHITE BLOOD COUNT 17.8 TH/MM3 (4.0-11.0)
[2017-02-27] MEDS: SODIUM CHLOR 0.9% 1000 ML INJ 1,000 ML IV SCH ×2 (04:00→05:01)
[2017-02-27 04:07] LABS: INTERNATIONAL NORMALIZED RATIO 1.7 RATIO; PROTHROMBIN TIME - PATIENT 16.7 SEC (9.8-11.6)
[2017-02-27 04:27] LABS: BICARBONATE 18.8 MEQ/L (21.0-32.0); CALCIUM 6.8 MG/DL (8.5-10.1); CREATININE 1.38 MG/DL (0.50-1.00)
[2017-02-27 04:36] LABS: BANDS 15 % (0-6); LYMPHOCYTES 5 % (9-44); METAMYELOCYTES 1 % (0-1); MONOCYTES 8 % (0-8); NEUTROPHIL # MANUAL DIFF 15.5 TH/MM3 (1.8-7.7); POLYS (SEG NEUTROPHILS) 71 % (16-70)
[2017-02-27 04:37] LABS: TOXIC GRANULATION 1+ (NORMAL)
[2017-02-27 04:39] LABS: CALCIUM-PROTEIN CORRECTED 8.4 MG/DL (8.5-10.1); TOTAL PROTEIN 4.2 GM/DL (6.4-8.2)
[2017-02-27] MEDS: LINEZOLID 600 MG PREMIX 300 ML IV SCH ×2 (05:30→18:20)
[2017-02-27] MEDS: SODIUM BICARBONATE 8.4% INJ 150 MEQ in DEXTROSE 5% IN WATE 1000ML INJ 1,000 ML IV SCH ×4 (05:55→18:20)
[2017-02-27] MEDS: LEVOTHYROXINE SODIUM 200 MCG TAB PO SCH (06:00)
[2017-02-27] MEDS: NOREPINEPHRINE 4 MG/D5W 250 ML IV PRN ×3 (06:43→17:11)
[2017-02-27] MEDS ORDERED: CALCIUM CHLORIDE INJ 1 GM in SODIUM CHLORIDE 0.9% INJ 100 ML IV SCH (06:45)
[2017-02-27] MEDS ORDERED: HYDROmorphone HCL PF 2 MG/ML VIAL IV PUSH ONE (07:00)
[2017-02-27] MEDS: ISOSORBIDE MONONITRATE 30 MG TAB PO SCH (07:00)
[2017-02-27] MEDS: PHENYLEPHRINE 40 MG in D5W 500 ML IV PRN (07:00)
[2017-02-27] MEDS ORDERED: HYDROCORTISONE SOD SUCCINATE 100 MG VIAL IV PUSH STA (07:01)
[2017-02-27] MEDS ORDERED: HYDROCORTISONE SOD SUCCINATE 100 MG VIAL ONE (07:03)
[2017-02-27] MEDS: PANTOPRAZOLE SODIUM 40 MG VIAL IV PUSH SCH ×2 (07:15→21:24)
[2017-02-27] MEDS ORDERED: LORazepam 2 MG/ML VIAL IV PUSH PRN (07:15)
--- NOTE | 2017-02-27 07:30 | HHI.CCPN ---
Subjective Remarks/Hospital Course 61-year-old female with a past medical history significant for CAD status post CABG, atrial fibrillation, diabetes mellitus, polycystic kidney disease, CHF ( echo with EF of 55-60% in 2015), hypertension, hyperlipidemia and hypothyroidism presents to the emergency department complaining of dizziness and falling. Her CT of the neck show 70% occlusive disease off right carotid artery and she was planned to undergo right carotid endarterectomy. Further vascular procedures she underwent elective cardiac catheterization that shows patent vessels without significant obstructive disease. Shortly after procedure patient developed severe hypotension and tachycardia with systolic blood pressure at 60s and significant decrease in hemoglobin. She was taken emergently to CT of the abdomen/aorta runoff, the didn't show any dissection or aneurysm however shows large hematoma of abdominal wall. SUBJ 02/27: Remains in profound shock. ON Levophed 20, Jaron 100, Vasopressin 0.04. Received total of 8 units of PRBC, 4 units of FFP to pack units of platelets and 2 cryo. Hb after 5U PRBC was 8.7 at 3 am. Discussed with vascular surgery Dr. Oliva re possible surgical intervention. Patient is also on chronic steroids prednisone 5 mg twice a day (for RA trial per patient). I will give 200 mg IV hydrocortisone STAT followed by 100 mg every 8 hours. Also change Synthroid to 75 g IV daily. Pain improved with Dilaudid. Will place on PRN Dilaudid. UO 400 ml overnight. Check bladder pressure Objective Vital Signs Date Time Temp Pulse Resp B/P (MAP) Pulse Ox O2 Delivery O2 Flow Rate FiO2 02/27/17 06:43 82 132/58 02/27/17 04:00 98.2 18 98 02/26/17 19:00 Non-Rebreather 15.00 100 Intake and Output 02/27/17 02/27/17 02/28/17 08:00 16:00 00:00 Intake Total 8171.5 ml Output Total 400 ml Balance 7771.5 ml Result Diagram: 02/27/17 0340 02/27/17 0340 Other Results Laboratory Tests Test 02/26/17 18:10 Blood Gas Puncture Site RT RADIAL Blood Gas Patient Temperature 98.6 Blood Gas HCO3 22 mmol/L (22-26) Blood Gas Base Excess -2.6 mmol/L (-2-2) Blood Gas Oxygen Saturation 95 % (90-100) Arterial Blood pH 7.33 (7.380-7.420) Arterial Blood Partial Pressure CO2 44 mmHg (38-42) Arterial Blood Partial Pressure O2 100 mmHg (61-120) Arterial Blood Oxygen Content 13.4 Vol % (12.0-20.0) Arterial Blood Carboxyhemoglobin 1.1 % (0-4) Arterial Blood Methemoglobin 1.5 % (0-2) Blood Gas Hemoglobin 10.0 G/DL (12.0-16.0) Oxygen Delivery Device NRB Blood Gas Inspired Oxygen 100 % Imaging Last 24 hours Impressions Chest X-Ray 02/26/17 1812 Signed Impressions: Service Date/Time: February 18:12 - CONCLUSION: Stable exam with cardiomegaly and left basilar atelectasis. Kiet Camarena Jr., MD Aorta CTA 02/26/17 0000 Signed Impressions: Service Date/Time: February 19:19 - CONCLUSION: 1. Large anterior abdominal wall hematoma. 2. No aortic dissection or aneurysm. 3. Changes involving the liver suggesting cirrhosis. 4. Cholelithiasis. 5. Bibasilar atelectasis. 6. Cardiomegaly. Kiet Camarena Jr., MD Objective Remarks GENERAL: Morbidly obese patient. In severe distress, due to pain. SKIN: Warm and dry. Ecchymosis lower abdomen HEAD: Normocephalic. EYES: No scleral icterus. No injection or drainage. NECK: Supple, trachea midline. No JVD or lymphadenopathy. CARDIOVASCULAR: Regular rate and rhythm without murmurs, gallops, or rubs. Heart sounds are distant RESPIRATORY: Breath sounds equal bilaterally. No accessory muscle use. GASTROINTESTINAL: Abdomen very distended tender to palpation in the lower abdomen. Ecchymosis lower abdomen MUSCULOSKELETAL: No cyanosis, or edema. BACK: Nontender without obvious deformity. : Ferguson in place with blood-tinged urine NEURO EXAM: GCS: 15 The patient is alert and oriented to person, place, and time with normal speech. No focal deficits Urinary Catheter: Yes Assessment to: Continue Vascular Central Line Catheter: Yes Assessment to: Continue A/P Assessment and Plan Hemorrhagic shock Large anterior abdominal wall/rectus sheath hematoma s/p cardiac catheter - Status post 8 units PRBC, 4 units of FFP, 2 units of platelets, 2 cryo - monitor hemoglobin, coags every 4 hours - Anterior abdominal wall hematoma on CTA. Discussed with vascular surgery Dr. Oliva. No active leak - Aggressive transfusion with blood products and PRBC - Monitor blood pressure. Monitor urine output - Surgical intervention and evacuation of hematoma indicated if patient developed abdominal compartment syndrome - Pain control with Dilaudid - On chronic prednisone 5 mg twice a day. Started on stress dose steroids to 200 milligram 1 stat and 100 every 8 - Change Synthroid to IV 75 g daily Anemia - Due to above - Monitor H&H and transfuse for hemoglobin less than 8 Atrial fibrillation - Rate control - Telemetry - Hold anticoagulation due to blood loss - Hold all antiplatelet therapy Carotid stenosis - Hold off Endarterectomy TIA - Due to above - Cannot go for endarterectomy at this point DVT GI prophylaxis - Teds SCDs - Hold pharmacological DVT prophylaxis due to acute blood loss - PPI Critical Care: The total critical care time was 45 minutes. Time to perform other separately billable procedures was not included in the critical care time. Discussed with Dr. Juarez, Padmaja Louise MD Feb 27, 2017 07:30
[2017-02-27] MEDS: LEVOTHYROXINE SODIUM 100 MCG VIAL IV PUSH SCH (07:37)
[2017-02-27] MEDS: PANTOPRAZOLE SOD 20 MG DELAYED RELEASE TAB PO SCH (08:18)
[2017-02-27] MEDS: SODIUM CHLORIDE 0.9% FLUSH 10 ML FLUSH IV FLUSH SCH ×2 (08:19→21:24)
[2017-02-27] MEDS: AMIODARONE 200 MG TAB PO SCH (08:19)
--- NOTE | 2017-02-27 08:20 | HHI.CCPN ---
Subjective Brief History The lady certainly presented with symptoms that are reminiscent of a TIA, but the side of stenosis does not quite resemble the symptoms. However, it is hard to tell with this patient. Ultrasound and CT of the carotids is consistent with about 70% right internal carotid artery stenosis, about 50% left. There are other studies pending. At this point, it is quite hard to tell if the symptoms were due to the carotid stenosis or maybe cardiac event. The patient is on Coumadin for apparently DVT , not previous A. Fib so we will see how she does in the next few days and then decide on further course of therapy. There is definitely no acute stroke. The dictum is that patients with a 70% carotid artery stenosis even if asymptomatic should be considered for carotid endarterectomy for risk of stroke is high and is about 8-12% a year. This patient is symptomatic, but it is quite unclear whether the symptoms are really from the carotid. underwent yesterday cardiac catheterization which was a technically difficult apparently and developed a large anterior abdominal wall hematoma from the same She dropped her pressure and developed hemorrhagic shock. Was resuscitated and placed and surgical ICU At this point clearly surgery will not be performed Patient will be off Coumadin and will go from there 24 Hour Review/Hospital Course Is noted the patient developed hemorrhagic shock yesterday evening and displayed large anterior abdominal wall hematoma This is now resolving and patient is hemodynamically stable Clearly any carotid surgery is now the question and this will be rescheduled at some later date as an outpatient Whether patient will need any surgical intervention on her vessel is questionable at this time but there is no blush that would indicate continuous bleeding Objective Vital Signs Date Time Temp Pulse Resp B/P (MAP) Pulse Ox O2 Delivery O2 Flow Rate FiO2 02/27/17 06:43 82 132/58 02/27/17 06:42 20 100 02/27/17 05:43 97.8 02/26/17 19:00 Non-Rebreather 15.00 100 Intake and Output 02/27/17 02/27/17 02/28/17 08:00 16:00 00:00 Intake Total 9331.5 ml Output Total 400 ml Balance 8931.5 ml Result Diagram: 02/27/17 0340 02/27/17 0340 Other Results Laboratory Tests Test 02/26/17 18:10 Blood Gas Puncture Site RT RADIAL Blood Gas Patient Temperature 98.6 Blood Gas HCO3 22 mmol/L (22-26) Blood Gas Base Excess -2.6 mmol/L (-2-2) Blood Gas Oxygen Saturation 95 % (90-100) Arterial Blood pH 7.33 (7.380-7.420) Arterial Blood Partial Pressure CO2 44 mmHg (38-42) Arterial Blood Partial Pressure O2 100 mmHg (61-120) Arterial Blood Oxygen Content 13.4 Vol % (12.0-20.0) Arterial Blood Carboxyhemoglobin 1.1 % (0-4) Arterial Blood Methemoglobin 1.5 % (0-2) Blood Gas Hemoglobin 10.0 G/DL (12.0-16.0) Oxygen Delivery Device NRB Blood Gas Inspired Oxygen 100 % Imaging Last 24 hours Impressions Chest X-Ray 02/26/17 1812 Signed Impressions: Service Date/Time: February 18:12 - CONCLUSION: Stable exam with cardiomegaly and left basilar atelectasis. MD Ottoniel Ball Jr., Slobodan MD Feb 27, 2017 08:20
[2017-02-27] MEDS: VENLAFAXINE HCL XR 75 MG CAP PO SCH (08:21)
[2017-02-27] MEDS: INSULIN ASPART SUPPLEMENTAL SCALE SQ SCH ×4 (08:28→21:00)
[2017-02-27 08:47] LABS: MEAN CELL VOLUME 88.8 FL (80.0-100.0); MEAN CORPUSCULAR HEMOGLOBIN 29.8 PG (27.0-34.0); MEAN CORPUSCULAR HGB CONC 33.6 % (32.0-36.0); MEAN PLATELET VOLUME 7.9 FL (7.0-11.0); PLATELET COUNT 118 TH/MM3 (150-450); RED BLOOD COUNT 1.68 MIL/MM3 (4.00-5.30); RED CELL DISTRIBUTION WIDTH 15.9 % (11.6-17.2); WHITE BLOOD COUNT 11.5 TH/MM3 (4.0-11.0)
[2017-02-27 08:55] LABS: INTERNATIONAL NORMALIZED RATIO 1.5 RATIO; PROTHROMBIN TIME - PATIENT 15.2 SEC (9.8-11.6)
[2017-02-27 08:56] LABS: HEMATOCRIT 14.9 % (35.0-46.0)
[2017-02-27] MEDS ORDERED: CALCIUM CHLORIDE INJ 1 GM in SODIUM CHLORIDE 0.9% INJ 100 ML IV ONE (09:15)
[2017-02-27 09:44] LABS: ALKALINE PHOSPHATASE 49 U/L (45-117); ALT (GPT) 29 U/L (10-53); AST (GOT) 43 U/L (15-37); BICARBONATE 19.6 MEQ/L (21.0-32.0); BLOOD UREA NITROGEN 29 MG/DL (7-18); CALCIUM 7.8 MG/DL (8.5-10.1); CHLORIDE 111 MEQ/L (98-107); CREATININE 1.47 MG/DL (0.50-1.00); GLOMERULAR FILTRATION RATE 36 ML/MIN (>89); GLUCOSE,RANDOM 214 MG/DL (74-106); SODIUM (NA) 143 MEQ/L (136-145); TOTAL BILIRUBIN ADULT 1.1 MG/DL (0.2-1.0); TOTAL PROTEIN 5.2 GM/DL (6.4-8.2)
[2017-02-27] MEDS: RESP: ALBUTEROL 2.5 MG/IPRATROPIUM 0.5 MG NEB (SCH) NEB ×3 (09:47→21:01)
[2017-02-27] MEDS ORDERED: MIDAZOLAM HCL 2 MG/2 ML VIAL ONE ×2 (10:09→10:10)
[2017-02-27] MEDS ORDERED: fentaNYL CITRATE 250 MCG/5 ML AMP ONE (10:10)
--- NOTE | 2017-02-27 10:56 | PD.CARD.PN ---
Subjective Subjective Remarks sedated in nad Objective Medications Current Medications Medications (Trade) Dose Ordered Sig/Alexa Route Start Time Stop Time Status Last Admin (Aspirin) 325 mg DAILY PO 02/23/17 09:00 Future Hold 02/25/17 08:24 (NovoLOG SUPPLEMENTAL SCALE) 1 ACHS SQ 02/22/17 12:00 02/27/17 08:28 (D50w (Vial) Inj) 50 ml UNSCH PRN IV PUSH 02/22/17 09:45 (Glucagon Inj) 1 mg UNSCH PRN OTHER 02/22/17 09:45 (Cordarone) 200 mg DAILY PO 02/23/17 09:00 02/26/17 09:19 (Lipitor) 40 mg HS PO 02/22/17 21:00 02/25/17 21:29 (Bumetanide) 1 mg DAILY PO 02/23/17 09:00 Future Hold (Imdur) 30 mg DAILY@0700 PO 02/23/17 07:00 02/26/17 09:19 (Synthroid) 200 mcg DAILY@0600 PO 02/23/17 06:00 02/26/17 05:08 (Lopressor) 50 mg BID PO 02/22/17 21:00 Future Hold 02/26/17 09:18 (Entresto 97-103 Mg) 1 tab BID PO 02/22/17 21:00 Future Hold 02/22/17 21:16 (Aldactone) 12.5 mg DAILY PO 02/23/17 09:00 Future Hold (Effexor Xr) 75 mg DAILY PO 02/23/17 09:00 02/26/17 09:19 (Pill Splitter) 1 ea UNSCH PRN OTHER 02/22/17 11:00 ([place] 5-325 Mg) 1 tab Q6H PRN PO 02/22/17 13:00 02/26/17 16:03 (Deltasone) 5 mg BID PO 02/22/17 21:00 Future Hold 02/26/17 09:19 (NS Flush) 2 ml BID IV FLUSH 02/26/17 21:00 02/26/17 21:00 (NS Flush) 2 ml UNSCH PRN IV FLUSH 02/26/17 16:15 Cefazolin Sodium/ Dextrose 50 ml @ 100 mls/hr [employer] HAND IV 02/26/17 16:30 03/01/17 16:29 (Brethine Inj) 1 mg UNSCH PRN SQ 02/26/17 22:00 Dopamine HCl 800 mg/Dextrose 500 ml @ 24.93 mls/ hr TITRATE PRN IV 02/26/17 22:30 02/26/17 22:38 (Zofran Inj) 4 mg Q4H PRN IV PUSH 02/26/17 23:00 Vasopressin 40 units/Dextrose 100 ml @ 6 mls/hr TITRATE PRN IV 02/27/17 00:15 (Brethine Inj) 1 mg UNSCH PRN SQ 02/27/17 00:15 Piperacillin Sod/ Tazobactam Sod 100 ml @ 200 mls/hr Q6H IV 02/27/17 01:00 02/27/17 07:14 Sodium Bicarbonate 150 meq/Dextrose 1,150 ml @ 100 mls/hr [id number] IV 02/27/17 04:00 02/27/17 05:55 Linezolid 300 ml @ 300 mls/hr Q12H IV 02/27/17 04:00 02/27/17 05:30 Norepinephrine Bitartrate 250 ml @ 7.5 mls/hr TITRATE PRN IV 02/27/17 03:45 02/27/17 06:43 Phenylephrine HCl 40 mg/Dextrose 500 ml @ 30 mls/hr TITRATE PRN IV 02/27/17 03:45 (SoluCORTEF INJ) 100 mg Q8HR IV 02/27/17 14:00 (Protonix Inj) 40 mg Q12H IV PUSH 02/27/17 08:00 02/27/17 07:15 (Synthroid Inj) 75 mcg DAILY@06 IV PUSH 02/27/17 07:30 02/27/17 07:37 (Dilaudid Pf Inj) 1 mg Q3H PRN IV PUSH 02/27/17 07:15 (Ativan Inj) 0.5 mg Q2H PRN IV PUSH 02/27/17 07:15 (Duoneb Neb) 1 ampule Q6HR NEB NEB 02/27/17 10:00 02/27/17 09:47 Vital Signs / I&O Vital Signs Date Time Temp Pulse Resp B/P (MAP) Pulse Ox O2 Delivery O2 Flow Rate FiO2 02/27/17 09:48 99 Nasal Cannula 3.00 02/27/17 09:32 79 18 116/55 99 02/27/17 09:15 97.8 80 18 116/47 99 02/27/17 08:22 18 02/27/17 08:00 97.8 79 18 115/52 (73) 108/52 (70) 02/27/17 06:43 82 132/58 02/27/17 06:42 78 20 111/54 100 02/27/17 06:19 80 22 104/51 98 02/27/17 05:43 97.8 80 22 121/68 98 02/27/17 05:21 80 20 132/75 98 02/27/17 04:57 79 114/62 02/27/17 04:46 22 112/54 96 02/27/17 04:00 80 02/27/17 04:00 98.2 77 18 107/49 (68) 98 02/27/17 03:01 78 107/54 02/27/17 03:00 79 18 112/54 (73) 98 102/50 (67) 02/27/17 02:15 22 02/27/17 02:00 79 20 106/67 (80) 100 02/27/17 01:31 100 20 102/25 (50) 100 111/67 (82) 02/27/17 01:17 131 18 134/59 (84) 98 133/78 (96) 02/27/17 01:17 99 24 134/59 (84) 99 133/78 (96) 02/27/17 01:00 123 22 106/65 (79) 98 02/27/17 00:55 79 18 134/81 98 02/27/17 00:30 131 18 106/75 (85) 98 02/27/17 00:00 131 18 106/75 (85) 98 02/27/17 00:00 145 02/26/17 23:32 149 18 66/33 (44) 99 18 23:32 149 20 66/33 (44) 99 18 23:32 149 22 79/62 (68) 02/26/17 22:51 94 112/77 02/26/17 22:45 90 20 106/67 (80) 100 02/26/17 22:45 90 22 106/67 (80) 100 02/26/17 22:09 90 22 106/67 100 02/26/17 21:00 85 20 106/53 (70) 100 02/26/17 20:27 97.6 94 18 117/83 100 02/26/17 20:00 97.6 87 22 91/64 (73) 98 18 20:00 91 18 117/83 (94) 99 02/26/17 20:00 91 02/26/17 20:00 97.8 82 20 117/62 100 02/26/17 19:00 87 20 91/64 (73) 98 02/26/17 19:00 87 Non-Rebreather 15.00 100 02/26/17 18:00 97.7 91 22 110/64 99 02/26/17 17:30 99 Non-Rebreather 15.00 100 02/26/17 17:30 90 02/26/17 17:25 82 68/30 (43) 02/26/17 17:20 91 64/44 (51) 02/26/17 17:15 85 75/49 (58) 02/26/17 17:10 80 96/69 (78) 02/26/17 17:05 87/65 (72) 02/26/17 17:00 80 85/59 (68) 02/26/17 16:55 80 92/49 (63) 02/26/17 16:50 80 95/39 (57) 02/26/17 16:45 79 82/49 (60) 02/26/17 16:30 80 91/56 (68) 02/26/17 16:15 91 83/64 (70) 02/26/17 16:10 98 Room Air 02/26/17 16:00 81 122/71 (88) 02/26/17 12:00 80 02/26/17 11:17 98.2 80 20 133/94 (107) 96 I/O 02/26/17 02/26/17 02/26/17 02/27/17 02/27/17 02/27/17 07:00 15:00 23:00 07:00 15:00 23:00 Intake Total 4320 ml 8631.5 ml 2270 ml Output Total 400 ml Balance 4320 ml 8231.5 ml 2270 ml Intake Oral 100 ml IV Total 3000 ml 6002.5 ml 1110 ml Packed Cells 1200 ml 1200 ml FFP 644 ml 824 ml Platelets 265 ml Cryoprecipitate 216 ml Blood Product IV Normal Saline Flush 120 ml 420 ml 120 ml Output Urine Total 400 ml # Voids 3 # Bowel Movements 0 Physical Exam GENERAL: SKIN: Warm and dry. HEAD: Normocephalic. EYES: No scleral icterus. No injection or drainage. NECK: Supple, trachea midline. No JVD or lymphadenopathy. CARDIOVASCULAR: Regular rate and rhythm without murmurs, gallops, or rubs. RESPIRATORY: Breath sounds equal bilaterally. No accessory muscle use. GASTROINTESTINAL: Abdomen soft, non-tender, nondistended. MUSCULOSKELETAL: No cyanosis, or edema. BACK: Nontender without obvious deformity. No CVA tenderness. Laboratory Laboratory Tests Test 02/26/17 17:50 02/26/17 18:10 02/27/17 00:53 02/27/17 03:40 Hemoglobin 10.7 GM/DL 9.1 GM/DL 8.7 GM/DL Hematocrit 32.1 % 26.3 % 26.2 % Prothrombin Time 15.5 SEC 16.7 SEC Prothromb Time International Ratio 1.5 RATIO 1.7 RATIO Activated Partial Thromboplast Time 26.1 SEC 30.6 SEC Blood Urea Nitrogen 29 MG/DL 29 MG/DL 28 MG/DL Creatinine 0.91 MG/DL 1.29 MG/DL 1.38 MG/DL Random Glucose 176 MG/DL 158 MG/DL 186 MG/DL Total Protein 6.5 GM/DL 5.2 GM/DL 4.2 GM/DL Albumin 3.1 GM/DL 2.7 GM/DL Calcium Level 7.8 MG/DL 6.8 MG/DL 6.8 MG/DL Phosphorus Level 2.3 MG/DL Magnesium Level 2.2 MG/DL Alkaline Phosphatase 81 U/L 61 U/L Aspartate Amino Transf (AST/SGOT) 11 U/L 16 U/L Alanine Aminotransferase (ALT/SGPT) 13 U/L 15 U/L Total Bilirubin 0.7 MG/DL 1.1 MG/DL Sodium Level 143 MEQ/L 144 MEQ/L 144 MEQ/L Potassium Level 4.2 MEQ/L 3.6 MEQ/L 3.9 MEQ/L Chloride Level 110 MEQ/L 112 MEQ/L 115 MEQ/L Carbon Dioxide Level 25.6 MEQ/L 20.8 MEQ/L 18.8 MEQ/L Anion Gap 7 MEQ/L 11 MEQ/L 10 MEQ/L Estimat Glomerular Filtration Rate 63 ML/MIN 42 ML/MIN 39 ML/MIN Blood Gas Puncture Site RT RADIAL Blood Gas Patient Temperature 98.6 Blood Gas HCO3 22 mmol/L Blood Gas Base Excess -2.6 mmol/L Blood Gas Oxygen Saturation 95 % Arterial Blood pH 7.33 Arterial Blood Partial Pressure CO2 44 mmHg Arterial Blood Partial Pressure O2 100 mmHg Arterial Blood Oxygen Content 13.4 Vol % Arterial Blood Carboxyhemoglobin 1.1 % Arterial Blood Methemoglobin 1.5 % Blood Gas Hemoglobin 10.0 G/DL Oxygen Delivery Device NRB Blood Gas Inspired Oxygen 100 % White Blood Count 24.2 TH/MM3 17.8 TH/MM3 Red Blood Count 2.99 MIL/MM3 2.95 MIL/MM3 Mean Corpuscular Volume 88.2 FL 89.1 FL Mean Corpuscular Hemoglobin 30.6 PG 29.6 PG Mean Corpuscular Hemoglobin Concent 34.7 % 33.2 % Red Cell Distribution Width 15.1 % 15.4 % Platelet Count 203 TH/MM3 149 TH/MM3 Mean Platelet Volume 7.6 FL 7.2 FL Neutrophils (%) (Auto) 83.4 % 80.3 % Lymphocytes (%) (Auto) 3.2 % 4.9 % Monocytes (%) (Auto) 13.3 % 14.6 % Eosinophils (%) (Auto) 0.0 % 0.0 % Basophils (%) (Auto) 0.1 % 0.2 % Neutrophils # (Auto) 20.2 TH/MM3 14.3 TH/MM3 Lymphocytes # (Auto) 0.8 TH/MM3 0.9 TH/MM3 Monocytes # (Auto) 3.2 TH/MM3 2.6 TH/MM3 Eosinophils # (Auto) 0.0 TH/MM3 0.0 TH/MM3 Basophils # (Auto) 0.0 TH/MM3 0.0 TH/MM3 CBC Comment AUTO DIFF AUTO DIFF Differential Total Cells Counted 100 100 Neutrophils % (Manual) 79 % 71 % Band Neutrophils % 11 % 15 % Lymphocytes % 2 % 5 % Monocytes % 8 % 8 % Neutrophils # (Manual) 21.8 TH/MM3 15.5 TH/MM3 Differential Comment FINAL DIFF MANUAL FINAL DIFF MANUAL Platelet Estimate NORMAL NORMAL Platelet Morphology Comment NORMAL NORMAL Red Cell Morphology Comment NORMAL Protein Corrected Calcium 7.8 MG/DL 8.4 MG/DL Metamyelocytes 1 % Toxic Granulation 1+ Fibrinogen 173 mg/dL Test 02/27/17 08:15 02/27/17 10:30 White Blood Count 11.5 TH/MM3 Red Blood Count 1.68 MIL/MM3 Hemoglobin 5.0 GM/DL Hematocrit 14.9 % Mean Corpuscular Volume 88.8 FL Mean Corpuscular Hemoglobin 29.8 PG Mean Corpuscular Hemoglobin Concent 33.6 % Red Cell Distribution Width 15.9 % Platelet Count 118 TH/MM3 Mean Platelet Volume 7.9 FL Prothrombin Time 15.2 SEC Prothromb Time International Ratio 1.5 RATIO Activated Partial Thromboplast Time 29.6 SEC Fibrinogen 253 mg/dL Blood Urea Nitrogen 29 MG/DL Creatinine 1.47 MG/DL Random Glucose 214 MG/DL Total Protein 5.2 GM/DL Albumin 3.0 GM/DL Calcium Level 7.8 MG/DL Alkaline Phosphatase 49 U/L Aspartate Amino Transf (AST/SGOT) 43 U/L Alanine Aminotransferase (ALT/SGPT) 29 U/L Total Bilirubin 1.1 MG/DL Sodium Level 143 MEQ/L Potassium Level 4.0 MEQ/L Chloride Level 111 MEQ/L Carbon Dioxide Level 19.6 MEQ/L Anion Gap 12 MEQ/L Estimat Glomerular Filtration Rate 36 ML/MIN Blood Gas Puncture Site DRAWN IN OR Blood Gas Patient Temperature 98.6 Blood Gas HCO3 19 mmol/L Blood Gas Base Excess -9.8 mmol/L Blood Gas Oxygen Saturation 96 % Arterial Blood pH 7.08 Arterial Blood Partial Pressure CO2 66 mmHg Arterial Blood Partial Pressure O2 166 mmHg Arterial Blood Oxygen Content 8.1 Vol % Arterial Blood Carboxyhemoglobin 1.0 % Arterial Blood Methemoglobin 1.5 % Blood Gas Hemoglobin 5.7 G/DL Imaging Last 24 hours Impressions Chest X-Ray 02/26/171811 Signed Impressions: Service Date/Time: February 18:12 - CONCLUSION: Stable exam with cardiomegaly and left basilar atelectasis. Kiet Camarena Jr., MD Assessment and Plan Problem List: (1) PVD (peripheral vascular disease) ICD Codes: I73.9 - Peripheral vascular disease, unspecified (2) Anemia ICD Codes: D64.9 - Anemia, unspecified (3) Abdominal hematoma ICD Codes: S30.1XXA - Contusion of abdominal wall, initial encounter (4) Obesity ICD Codes: E66.9 - Obesity Status: Acute (5) SOB (shortness of breath) ICD Codes: R06.02 - SOB (shortness of breath) Status: Acute (6) Hx of coronary artery disease ICD Codes: Z86.79 - Personal history of other diseases of the circulatory system (7) Atrial fibrillation ICD Codes: I48.91 - Atrial fibrillation Status: Chronic (8) DM (diabetes mellitus) ICD Codes: E11.9 - DM (diabetes mellitus) Status: Chronic (9) Carotid stenosis ICD Codes: I65.29 - Occlusion and stenosis of unspecified carotid artery (10) History of four vessel coronary artery bypass graft ICD Codes: Z95.1 - Presence of aortocoronary bypass graft Assessment and Plan 1.) CAD - i could not image lyles, ow good flow to iw, lw, anterior wall with good wall motion but cant rule out lyles or lad disease therefore patient is moderate to high risk for noncardiac surgery, d/w Dr Cruz 2.) abdominal hematoma - rp bleed and groin hematoma ruled out, possibly due to lovenox injections, would explain why bleeding not tamponading as adipose tissue would lower resistance than rp or groin, still requiring transfusion and pressors but mental status good and u/o > 300/shift; d/w Dr Schafer and Daphne throughout night and this am extensively; d/w Dr Cruz this am, he will d/w IR possible embolization and also consider hematoma evacuation 3.) PAF - in nsr this am hr @ 85, ac held due to abdominal hematoma 4.) Carotid stenosis - surgery postponed due to abdominal hematoma Problem Qualifiers (1) Atrial fibrillation: Qualified Codes: I48.0 - Paroxysmal atrial fibrillation Macho Juarez MD Feb 27, 2017 10:56
[2017-02-27] MEDS ORDERED: ROCURONIUM INJ 50 MG/5 ML SYRINGE IV PUSH ONE (12:00)
[2017-02-27] MEDS ORDERED: PROPOFOL 200 MG/20 ML AMP IV ONE (12:00)
[2017-02-27] MEDS ORDERED: LABETALOL HCL 100 MG/20 ML VIAL IV ONE (12:00)
[2017-02-27] MEDS ORDERED: PHENYLEPH/NS 1000 MCG/10 ML SYR IV ONE (12:00)
[2017-02-27] MEDS ORDERED: VECURONIUM BROMIDE 20 MG VIAL IV ONE (12:00)
[2017-02-27] MEDS ORDERED: IODIXANOL 320 MG/ML 50 ML VIAL (for RAD SPEC) I-ARTERIAL ONE (12:14)
[2017-02-27 13:17] LABS: AUTOMATED NEUTROPHIL # 8.2 TH/MM3 (1.8-7.7); BASOPHIL % 0.2 % (0.0-2.0); HEMATOCRIT 28.5 % (35.0-46.0); HEMOGLOBIN 9.8 GM/DL (11.6-15.3); LYMPH % 5.1 % (9.0-44.0); LYMPHOCYTE # 0.5 TH/MM3 (1.0-4.8); MEAN CELL VOLUME 84.8 FL (80.0-100.0); MEAN CORPUSCULAR HEMOGLOBIN 29.3 PG (27.0-34.0); MEAN CORPUSCULAR HGB CONC 34.5 % (32.0-36.0); MEAN PLATELET VOLUME 7.6 FL (7.0-11.0); MONO % 12.9 % (0.0-8.0); MONOCYTE # 1.3 TH/MM3 (0-0.9); NEUT % 81.8 % (16.0-70.0); PLATELET COUNT 112 TH/MM3 (150-450); RED BLOOD COUNT 3.36 MIL/MM3 (4.00-5.30); RED CELL DISTRIBUTION WIDTH 16.9 % (11.6-17.2); WHITE BLOOD COUNT 10.1 TH/MM3 (4.0-11.0)
--- NOTE | 2017-02-27 13:26 | RADRPT ---
EXAM DATE/TIME: 02/27/2017 11:03 COMPARISON: No previous studies available for comparison. INDICATIONS : Patient s/p heart catherization. After procedure patient developed severe hypotension and tachycardia . significant drop in hemoglobin. Abdominal wall hematoma MEDICAL HISTORY : 1.A fib 2. CAD 3, CHF 4. HTN 5. polycystic kidney disease 6. hyperlipidemia 7. hypothyroidism SURGICAL HISTORY : 1. heart cath 2. CABG x4 2006 3. AICD 4. ablation x4 for afib ENCOUNTER: Initial ACUITY: 1 day PAIN SCORE: Nonresponsive. FLUORO TIME: 11.0 minutes IMAGE SERIES: 17 ACCESS SITE: Right Femoral artery CONTRAST: 1.) 135 cc Visipaque (iodixanol) DEVICE(S): 1.) Right common femoral artery 6 fr Angio-Seal Anesthesia and pain control was provided by the Anesthesia department. PROCEDURE: The patient was placed supine on the angiography table. The right groin region and existing arterial line was prepped in sterile fashion. Full sterile technique was used, including cap, mask, sterile gl oves and gown and a large sterile sheet. Hand hygiene and 2% chlorhexidine and/or betadine/alcohol pr ep was utilized per protocol for cutaneous antisepsis with appropriate dry time for site. The skin an d subcutaneous tissues were infiltrated with lidocaine solution. Under direct fluoroscopic guidance, the existing arterial catheter was used to introduce a 0.018 guidewire into the right iliac. The line was removed. A coaxial dilator was introduced allowing placement of a 4 Czech dilator into the vess el. Preliminary arteriography was performed revealing satisfactory positioning and no evidence of ves antonino injury. Over an angled glide wire, a 6 Czech vascular sheath was inserted and secured with silk suture. This was connected to pressure bag and was transduced during performance of arteriography. A 4 Czech Omni flush catheter was inserted and manipulated into the low abdominal aorta. Digital sub traction pelvic arteriography was performed in several projections. Additional right groin sheath art eriography was performed for selective evaluation. Because of the entry location of the existing sheath very close to the takeoff of the ipsilateral inf erior epigastric artery, a second puncture site was selected in the more distal right common femoral artery. Ultrasound guidance was utilized using sterile gel and sterile probe cover. Under direct ultrasound g uidance, micropuncture access was accomplished into the distal right common femoral artery allowing p lacement of a 4 Czech vascular sheath. The ultrasound images depicting access guidance were saved an d stored to PACS for permanent record. From the second access site, I was able to manipulate a 4 Czech Berenstein catheter and Glidewire co mbination into the right inferior epigastric artery and selective arteriography was performed with mu ltiple projections obtained over the anterior abdominal and anterior pelvic psann. The Omni flush catheter was reintroduced and used to select over the aortic bifurcation and a 4 Frenc h Cobra catheter was taken down into the region of the contralateral left iliac. Selective left iliac arteriography and common femoral arteriography was then performed. The catheter was used to selectiv ellen catheterize the left inferior epigastric artery and subselective arteriography was performed in s everal projections. The 4 Czech sheath was left in place and secured with silk suture to serve as an art line in this pa tient. This was connected to transduced heparin infusion. The 6 Czech sheath was then removed and th e arteriotomy closed with the Angio-Seal device. FINDINGS: The right groin region is intact and atraumatic in appearance. There is no evidence of arterial injur y associated with the patient's catheterizations in this region. Nonselective, selective and subselec tive evaluation of the abdominal and pelvic vessels do not reveal a site of active arterial contrast extravasation. Moderate vasospasm is noted, however no focal vessel disease is identified. No suspici ous findings are identified to identify site of bleeding into the anterior abdominal and pelvic wall. The inferior epigastric arteries were both selectively evaluated and no hemorrhage is located. CONCLUSION: No evidence of arterial injury and no findings to indicate site of bleeding to account for anterior a bdominal wall hematoma. Savage Aranda MD on February 27, 2017 at 13:15 Board Certified Radiologist. This report was verified electronically.
[2017-02-27 13:28] LABS: INTERNATIONAL NORMALIZED RATIO 1.3 RATIO; PROTHROMBIN TIME - PATIENT 13.5 SEC (9.8-11.6)
[2017-02-27] MEDS ORDERED: PROPOFOL 500 MG/50 ML INJ 50 ML ONE (13:58)
[2017-02-27] MEDS: HYDROCORTISONE SOD SUCCINATE 100 MG VIAL IV SCH ×2 (14:00→23:09)
--- NOTE | 2017-02-27 14:04 | HHI.CCPN ---
Subjective Brief History The lady certainly presented with symptoms that are reminiscent of a TIA, but the side of stenosis does not quite resemble the symptoms. However, it is hard to tell with this patient. Ultrasound and CT of the carotids is consistent with about 70% right internal carotid artery stenosis, about 50% left. There are other studies pending. At this point, it is quite hard to tell if the symptoms were due to the carotid stenosis or maybe cardiac event. The patient is on Coumadin for apparently DVT , not previous A. Fib so we will see how she does in the next few days and then decide on further course of therapy. There is definitely no acute stroke. The dictum is that patients with a 70% carotid artery stenosis even if asymptomatic should be considered for carotid endarterectomy for risk of stroke is high and is about 8-12% a year. This patient is symptomatic, but it is quite unclear whether the symptoms are really from the carotid. underwent yesterday cardiac catheterization which was a technically difficult apparently and developed a large anterior abdominal wall hematoma from the same She dropped her pressure and developed hemorrhagic shock. Was resuscitated and placed and surgical ICU At this point clearly surgery will not be performed Patient will be off Coumadin and will go from there 24 Hour Review/Hospital Course Is noted the patient developed hemorrhagic shock yesterday evening and displayed large anterior abdominal wall hematoma This is now resolving and patient is hemodynamically stable Clearly any carotid surgery is now the question and this will be rescheduled at some later date as an outpatient Whether patient will need any surgical intervention on her vessel is questionable at this time but there is no blush that would indicate continuous bleeding Patient underwent successful arteriogram in Endo suite yet no clear source of bleeding was found The CT of the abdomen clearly reveals hemoglobin level in the collection so this is consistent with probably 8 or 9 units of blood Right now this is a contained space and it will tamponade off as long as it stays intraperitoneal area. If this would rupture intraperitoneally then of course patient would require surgical evacuation of this emergently In the best case scenario would keep hemoglobin up and this is going to stop on its own and then when all things are done we can always evacuate this collection later On the other hand if she continues to bleed surgery is always an option Objective Vital Signs Date Time Temp Pulse Resp B/P (MAP) Pulse Ox O2 Delivery O2 Flow Rate FiO2 02/27/17 12:15 99 100 02/27/17 11:00 97.8 128 20 128/92 02/27/17 09:48 Nasal Cannula 3.00 Intake and Output 02/27/17 02/27/17 02/28/17 08:00 16:00 00:00 Intake Total 9331.5 ml 1560 ml Output Total 400 ml Balance 8931.5 ml 1560 ml Result Diagram: 02/27/17 1240 02/27/17 0815 Other Results Laboratory Tests Test 02/26/17 18:10 02/27/17 10:30 Blood Gas Puncture Site RT RADIAL DRAWN IN OR Blood Gas Patient Temperature 98.6 98.6 Blood Gas HCO3 22 mmol/L (22-26) 19 mmol/L (22-26) Blood Gas Base Excess -2.6 mmol/L (-2-2) -9.8 mmol/L (-2-2) Blood Gas Oxygen Saturation 95 % (90-100) 96 % (90-100) Arterial Blood pH 7.33 (7.380-7.420) 7.08 (7.380-7.420) Arterial Blood Partial Pressure CO2 44 mmHg (38-42) 66 mmHg (38-42) Arterial Blood Partial Pressure O2 100 mmHg (61-120) 166 mmHg (61-120) Arterial Blood Oxygen Content 13.4 Vol % (12.0-20.0) 8.1 Vol % (12.0-20.0) Arterial Blood Carboxyhemoglobin 1.1 % (0-4) 1.0 % (0-4) Arterial Blood Methemoglobin 1.5 % (0-2) 1.5 % (0-2) Blood Gas Hemoglobin 10.0 G/DL (12.0-16.0) 5.7 G/DL (12.0-16.0) Oxygen Delivery Device NRB Blood Gas Inspired Oxygen 100 % Imaging Last 24 hours Impressions Angiography 02/27/17 1219 Signed Impressions: Service Date/Time: Monday, February 27, 2017 11:03 - CONCLUSION: No evidence of arterial injury and no findings to indicate site of bleeding to account for anterior abdominal wall hematoma. Savage Aranda MD Chest X-Ray 02/26/17 1812 Signed Impressions: Service Date/Time: February 18:12 - CONCLUSION: Stable exam with cardiomegaly and left basilar atelectasis. Kiet Camarena Jr., MD Exam Hemodynamic/Cardiac Hemodynamically patient is no slowly stabilizing obviously she dropped hemoglobin throughout the night and became hemodynamically unstable but this is slowly resolving Would continue blood and blood products as necessary as well as vasopressors Pulmonary/Respiratory Remains ventilatory dependent and intubated Abdomen/GI Nutrition Abdomen is soft in upper portion and then firm and lower portion where there is a large preperitoneal hematoma Patient does not have compartment syndrome considering that this is expanding anteriorly and out rather than inward Again as noted above surgery should be last option Renal/I&O Renal function preserved as long as patient is getting fluids blood and blood products Assessment and Plan Attestation Critical care 38 minutes Will continue follow which you Chin Alcazar MD Feb 27, 2017 14:04
[2017-02-27 14:16] LABS: ALBUMIN 3.2 GM/DL (3.4-5.0); ALKALINE PHOSPHATASE 57 U/L (45-117); ALT (GPT) 61 U/L (10-53); AST (GOT) 116 U/L (15-37); BICARBONATE 22.9 MEQ/L (21.0-32.0); BLOOD UREA NITROGEN 28 MG/DL (7-18); CALCIUM 9.1 MG/DL (8.5-10.1); CHLORIDE 107 MEQ/L (98-107); GLOMERULAR FILTRATION RATE 38 ML/MIN (>89); GLUCOSE,RANDOM 151 MG/DL (74-106); MAGNESIUM 1.5 MG/DL (1.5-2.5); SODIUM (NA) 143 MEQ/L (136-145); TOTAL BILIRUBIN ADULT 1.3 MG/DL (0.2-1.0); TOTAL PROTEIN 5.8 GM/DL (6.4-8.2)
[2017-02-27] MEDS: VASOPRESSIN 40 U/D5W 100 ML Titrate, Post Cardiac Surgery IV PRN ×2 (15:00)
[2017-02-27] MEDS ORDERED: AMIODARONE INJ 150 MG in DEXTROSE 5% IN WATER 100ML INJ 100 ML IV ONE ×2 (15:35)
[2017-02-27] MEDS ORDERED: fentaNYL DRIP 250 ML IV PRN (15:45)
[2017-02-27] MEDS: MAGNESIUM SULFATE 1 GM PREMIX 100 ML IV SCH ×2 (15:46→16:49)
[2017-02-27] MEDS: AMIODARONE INJ 450 MG in SODIUM CHLOR 0.9% (EXCEL) INJ 241 ML IV PRN (15:58)
[2017-02-27 16:06] LABS: AUTOMATED NEUTROPHIL # 10.7 TH/MM3 (1.8-7.7); BASOPHIL % 0.2 % (0.0-2.0); HEMATOCRIT 25.9 % (35.0-46.0); LYMPH % 7.9 % (9.0-44.0); LYMPHOCYTE # 1.1 TH/MM3 (1.0-4.8); MEAN CELL VOLUME 83.5 FL (80.0-100.0); MEAN CORPUSCULAR HEMOGLOBIN 28.9 PG (27.0-34.0); MEAN CORPUSCULAR HGB CONC 34.7 % (32.0-36.0); MEAN PLATELET VOLUME 7.9 FL (7.0-11.0); MONO % 12.6 % (0.0-8.0); MONOCYTE # 1.7 TH/MM3 (0-0.9); NEUT % 79.3 % (16.0-70.0); PLATELET COUNT 125 TH/MM3 (150-450); RED CELL DISTRIBUTION WIDTH 16.6 % (11.6-17.2); WHITE BLOOD COUNT 13.5 TH/MM3 (4.0-11.0)
[2017-02-27] MEDS ORDERED: DIGOXIN 0.5 MG/2 ML VIAL IV PUSH ONE (16:15)
--- NOTE | 2017-02-27 16:32 | MB ---
cc: CRYSTAL ESTEVEZ MD DATE OF CONSULTATION: 02/27/2017 REFERRING PHYSICIAN: Dr. Serna REASON FOR CONSULTATION: Septic shock, patient allergic to vancomycin. HISTORY OF PRESENT ILLNESS: This is a 61-year-old white female who presented to [facility] emergency department on 02/22 with generalized weakness. The patient reportedly was having problems with dizziness. When she presented to emergency department she was afebrile and white blood cell count was normal. She was felt to have likely a TIA. CT scan of the head was negative. A CTA of the neck was performed, and it showed prominent atherosclerotic disease at the carotid bulbs. The patient was felt to likely be in need of the carotid artery surgery. She went for a cardiac catheterization yesterday, subsequently the patient was found to have hypotension, She was felt to have some form of internal bleeding. She also had significant decrease in hemoglobin. She underwent emergent CT of the abdomen and it showed a large anterior abdominal wall hematoma. No aortic dissection or aneurysm was noted. The patient subsequently went this morning for possible embolization, but no source of the bleeding was found. She was intubated for that procedure and she remains intubated currently. She is on Levophed and vasopressin. She is currently unresponsive on the ventilator. She has been afebrile since admission and her white count the early this morning south to 24.2 from 8.9 yesterday and then has decreased steadily to 10.1 last measured about 2 hours ago. Information is obtained from the medical record since the patient is unresponsive currently. She is currently in atrial fibrillation. The patient now has decreased urine output. She is putting out approximately 30 cc of urine per hour and the urine is blood tinged in the Ferguson catheter. PAST MEDICAL HISTORY: 1. hypertension 2. Hyperlipidemia 3. polycystic kidney disease 4. Hypothyroidism 5. coronary artery disease 6. history of coronary bypass graft surgery 7. atrial fibrillation status post ablation times four 8. AICD placement 9. Tonsillectomy 10. bilateral tubal ligation 11. Arthritis ALLERGIES VANCOMYCIN LEVAQUIN ERYTHROMYCIN AZITHROMYCIN CYCLOSPORIN MRI precaution. MEDICATIONS 1. Linezolid. 2. Levophed. 3. Piperacillin / tazobactam. 4. Vasopressin. 5. Sodium bicarbonate. 6. Synthroid. 7. Protonix. 8. DuoNeb. 9. Hydrocortisone. SOCIAL HISTORY No tobacco, no alcohol. No illicit drugs. FAMILY HISTORY Unable to obtain REVIEW OF SYSTEMS Review of systems unable to obtain. PHYSICAL EXAMINATION: IN GENERAL: Physical exam this is a morbidly obese female who is on the ventilator. She is unresponsive. VITAL SIGNS: include temperature 97.8, BP 120/92, respirations 20, heart rate 126. HEAD, EYES, EARS, NOSE, AND THROAT: Unable to assess. The patient is intubated on ventilator. The external buccal mucosa appears moist. NECK: No swelling or adenopathy. LUNGS: Clear decreased breath sounds throughout. HEART: Irregular rate and rhythm. No murmurs audible. ABDOMEN: Markedly distended. Firm. RECTUM: Rectal was not performed. EXTREMITIES: No clubbing or cyanosis or edema. SKIN: No diffuse rash. NEUROLOGIC: Unable to assess PSYCHIATRIC: Unable to assess. LABORATORY DATA WBC 10.1, platelets 112, hemoglobin 9.8, 81% neutrophils, creatinine 1.40, BUN 28, sodium 143, AST 116, ALT 61, estimated GFR 38. IMPRESSION 1. Hemorrhagic shock. Patient with episode of hypotension and tachycardia and abdominal wall hematoma. 2. Leukocytosis probably reactive since the white blood cell count has improved very quickly. 3. Acute kidney disease. The patient received contrast for radiographic study and also she was hypotensive and may have had also hypotensive insult to the kidney. 4. Multiple antibiotic allergies. RECOMMENDATIONS 1. Continue vancomycin for now. 2. Continue the Piperacillin/Tazobactam for now. 3. Monitor blood cultures 4. Follow the white count and clinical status. Thank you for this consultation. The patient's progress will be followed and further recommendations will be given upon followup. At this point it is not certain that she has sepsis. She appears to have profound shock from hypovolemia. Crystal Estevez MD FD/kunal /3:11 PM /4:09 PM JACKIE
[2017-02-27 16:40] LABS: ALT (GPT) 95 U/L (10-53); AST (GOT) 186 U/L (15-37); BICARBONATE 24.1 MEQ/L (21.0-32.0); BLOOD UREA NITROGEN 28 MG/DL (7-18); CALCIUM 8.3 MG/DL (8.5-10.1); CHLORIDE 107 MEQ/L (98-107); CREATININE 1.59 MG/DL (0.50-1.00); GLOMERULAR FILTRATION RATE 33 ML/MIN (>89); GLUCOSE,RANDOM 147 MG/DL (74-106); MAGNESIUM 1.4 MG/DL (1.5-2.5); SODIUM (NA) 142 MEQ/L (136-145)
[2017-02-27 16:42] LABS: ALKALINE PHOSPHATASE 51 U/L (45-117); TOTAL BILIRUBIN ADULT 1.7 MG/DL (0.2-1.0); TOTAL PROTEIN 5.6 GM/DL (6.4-8.2)
[2017-02-27 16:54] LABS: BANDS 5 % (0-6); LYMPHOCYTES 13 % (9-44); MONOCYTES 5 % (0-8); MYELOCYTES 1 % (0-0); NEUTROPHIL # MANUAL DIFF 11.1 TH/MM3 (1.8-7.7); POLYS (SEG NEUTROPHILS) 76 % (16-70)
[2017-02-27 16:56] LABS: TOXIC GRANULATION 1+ (NORMAL)
[2017-02-27] MEDS ORDERED: FUROSEMIDE 40 MG/4 ML VIAL IV PUSH ONE (18:30)
[2017-02-27] MEDS: PROPOFOL 1000 MG/100 ML INJ 100 ML IV PRN (20:13)
[2017-02-27] MEDS: ATORVASTATIN 40 MG TAB PO SCH (20:51)
[2017-02-28] VITALS (22 sets, daily range): BP systolic 100–140; BP diastolic 47–65; PULSE 86–109; RESP 16–28; TEMP 98.5–100.3; O2SAT 91–100
[2017-02-28] MEDS: PHENYLEPHRINE 40 MG in D5W 500 ML IV PRN (01:10)
[2017-02-28] MEDS: PIPERACIL-TAZO 4.5 GM PREMIX 100 ML IV SCH (01:18)
[2017-02-28] MEDS: SODIUM BICARBONATE 8.4% INJ 150 MEQ in DEXTROSE 5% IN WATE 1000ML INJ 1,000 ML IV SCH ×4 (03:00→16:31)
[2017-02-28] MEDS: RESP: ALBUTEROL 2.5 MG/IPRATROPIUM 0.5 MG NEB (SCH) NEB ×4 (03:21→21:44)
[2017-02-28] MEDS: LINEZOLID 600 MG PREMIX 300 ML IV SCH ×2 (04:40→16:31)
[2017-02-28] MEDS: HYDROCORTISONE SOD SUCCINATE 100 MG VIAL IV SCH ×3 (05:50→21:39)
[2017-02-28] MEDS: LEVOTHYROXINE SODIUM 100 MCG VIAL IV PUSH SCH (05:50)
[2017-02-28 05:57] LABS: AUTOMATED NEUTROPHIL # 12.2 TH/MM3 (1.8-7.7); BASOPHIL % 0.2 % (0.0-2.0); HEMATOCRIT 26.7 % (35.0-46.0); HEMOGLOBIN 9.3 GM/DL (11.6-15.3); LYMPH % 6.2 % (9.0-44.0); LYMPHOCYTE # 0.9 TH/MM3 (1.0-4.8); MEAN CELL VOLUME 84.3 FL (80.0-100.0); MEAN CORPUSCULAR HEMOGLOBIN 29.5 PG (27.0-34.0); MEAN PLATELET VOLUME 8.2 FL (7.0-11.0); MONO % 10.7 % (0.0-8.0); MONOCYTE # 1.6 TH/MM3 (0-0.9); NEUT % 82.9 % (16.0-70.0); PLATELET COUNT 113 TH/MM3 (150-450); RED BLOOD COUNT 3.17 MIL/MM3 (4.00-5.30); RED CELL DISTRIBUTION WIDTH 16.3 % (11.6-17.2); WHITE BLOOD COUNT 14.8 TH/MM3 (4.0-11.0)
[2017-02-28] MEDS: LEVOTHYROXINE SODIUM 200 MCG TAB PO SCH (06:00)
[2017-02-28 06:32] LABS: ALBUMIN 2.6 GM/DL (3.4-5.0); BICARBONATE 25.2 MEQ/L (21.0-32.0); CALCIUM 7.4 MG/DL (8.5-10.1); CALCIUM-PROTEIN CORRECTED 8.5 MG/DL (8.5-10.1); CREATININE 2.14 MG/DL (0.50-1.00); TOTAL BILIRUBIN ADULT 1.3 MG/DL (0.2-1.0); TOTAL PROTEIN 5.1 GM/DL (6.4-8.2)
[2017-02-28 06:35] LABS: INTERNATIONAL NORMALIZED RATIO 1.3 RATIO; PROTHROMBIN TIME - PATIENT 12.7 SEC (9.8-11.6)
[2017-02-28] MEDS: ISOSORBIDE MONONITRATE 30 MG TAB PO SCH (06:38)
[2017-02-28] MEDS ORDERED: FUROSEMIDE 40 MG/4 ML VIAL IV PUSH ONE ×2 (07:00→18:00)
[2017-02-28] MEDS ORDERED: ALBUMIN 25% INJ 50 ML IV ONE (07:00)
--- NOTE | 2017-02-28 07:07 | HHI.CCPN ---
Subjective Remarks/Hospital Course 61-year-old female with a past medical history significant for CAD status post CABG, atrial fibrillation, diabetes mellitus, polycystic kidney disease, CHF ( echo with EF of 55-60% in 2015), hypertension, hyperlipidemia and hypothyroidism presents to the emergency department complaining of dizziness and falling. Her CT of the neck show 70% occlusive disease off right carotid artery and she was planned to undergo right carotid endarterectomy. Further vascular procedures she underwent elective cardiac catheterization that shows patent vessels without significant obstructive disease. Shortly after procedure patient developed severe hypotension and tachycardia with systolic blood pressure at 60s and significant decrease in hemoglobin. She was taken emergently to CT of the abdomen/aorta runoff, the didn't show any dissection or aneurysm however shows large hematoma of abdominal wall. SUBJ 02/27: Remains in profound shock. ON Levophed 20, Jaron 100, Vasopressin 0.04. Received total of 8 units of PRBC, 4 units of FFP to pack units of platelets and 2 cryo. Hb after 5U PRBC was 8.7 at 3 am. Discussed with vascular surgery Dr. Oliva re possible surgical intervention. Patient is also on chronic steroids prednisone 5 mg twice a day (for RA trial per patient). I will give 200 mg IV hydrocortisone STAT followed by 100 mg every 8 hours. Also change Synthroid to 75 g IV daily. Pain improved with Dilaudid. Will place on PRN Dilaudid. UO 400 ml overnight. Check bladder pressure 02/28: Remains intubated critically ill FiO2 at 60%. Remains on Jaron-Synephrine at 30 mcg/m, vasopressin at 0.04 international units per minute. Receive 2 units of PRBC for hemoglobin of 7.6 overnight. Today 9.3. Creatinine has increased to 2.14. Urine output 575 mg in 24 hours. Objective Vital Signs Date Time Temp Pulse Resp B/P (MAP) Pulse Ox O2 Delivery O2 Flow Rate FiO2 02/28/17 06:28 98 126/61 02/28/17 04:34 98.8 17 98 02/28/17 04:15 60 02/28/17 03:17 Mechanical Ventilator 02/27/17 09:48 3.00 Intake and Output 02/28/17 02/28/17 03/01/17 08:00 16:00 00:00 Intake Total 4207.4 ml Output Total 455 ml Balance 3752.4 ml Result Diagram: 02/28/17 0535 02/28/17 0535 Other Results Laboratory Tests Test 02/27/17 10:30 Blood Gas Puncture Site DRAWN IN OR Blood Gas Patient Temperature 98.6 Blood Gas HCO3 19 mmol/L (22-26) Blood Gas Base Excess -9.8 mmol/L (-2-2) Blood Gas Oxygen Saturation 96 % (90-100) Arterial Blood pH 7.08 (7.380-7.420) Arterial Blood Partial Pressure CO2 66 mmHg (38-42) Arterial Blood Partial Pressure O2 166 mmHg (61-120) Arterial Blood Oxygen Content 8.1 Vol % (12.0-20.0) Arterial Blood Carboxyhemoglobin 1.0 % (0-4) Arterial Blood Methemoglobin 1.5 % (0-2) Blood Gas Hemoglobin 5.7 G/DL (12.0-16.0) Imaging Last 24 hours Impressions Chest X-Ray 02/26/17 1812 Signed Impressions: Service Date/Time: February 18:12 - CONCLUSION: Stable exam with cardiomegaly and left basilar atelectasis. Kiet Camarena Jr., MD Aorta CTA 02/26/17 0000 Signed Impressions: Service Date/Time: February 19:19 - CONCLUSION: 1. Large anterior abdominal wall hematoma. 2. No aortic dissection or aneurysm. 3. Changes involving the liver suggesting cirrhosis. 4. Cholelithiasis. 5. Bibasilar atelectasis. 6. Cardiomegaly. Kiet Camarena Jr., MD Objective Remarks GENERAL: Morbidly obese patient. Intubated sedated, critically ill SKIN: Warm and dry. Ecchymosis lower abdomen HEAD: Normocephalic. ENT: Orotracheally intubated NECK: Supple, trachea midline. No JVD or lymphadenopathy. CARDIOVASCULAR: Regular rate and rhythm without murmurs, gallops, or rubs. Heart sounds are distant RESPIRATORY: Breath sounds equal bilaterally. No accessory muscle use. GASTROINTESTINAL: Abdomen distended tender to palpation in the lower abdomen. Ecchymosis lower abdomen MUSCULOSKELETAL: No cyanosis, or edema. : Ferguson in place with blood-tinged urine NEURO EXAM: Patient is intubated sedated moves all extremities. Follows commands on sedation hold Urinary Catheter: Yes Assessment to: Continue Vascular Central Line Catheter: Yes Assessment to: Continue A/P Assessment and Plan Neuro: TIA - Propofol and fentanyl for sedation and vent synchrony, pain control - Start daily sedation vacation - Previously planned CEA postponed indefinitely CVA/Heme: Hemorrhagic shock Large anterior abdominal wall/rectus sheath hematoma s/p cardiac catheterization - Status approximately 11 units PRBC, 4 units of FFP, 2 units of platelets, 2 cryo - monitor hemoglobin, coags every 4 hours, monitor coags - Anterior abdominal wall hematoma on CTA. Discussed with vascular surgery Dr. Oliva, Dr. Whitley and Dr. Encarnacion. No active leak - Continue Aggressive transfusion as needed with blood products and PRBC - Surgical intervention and evacuation of hematoma indicated if patient developed abdominal compartment syndrome, or uncontrolled bleeding - On chronic prednisone 5 mg twice a day. Started on stress dose steroids to 200 milligram 1 stat and 100 every 8 - Changed Synthroid to IV 75 g daily - Monitor H&H and transfuse for hemoglobin less than 8 - Currently weaned off Levophed. Continue to wean Jaron-Synephrine and vasopressin Atrial fibrillation - Rate control, On amiodarone IV and received single dose of digoxin - Hold anticoagulation due to blood loss - Hold all antiplatelet therapy Resp: Acute hypoxemic respiratory failure - Intubated by anesthesia for angiography but now with hypoxemic respiratory failure - Vent bundle, DuoNeb every 6 hours and when necessary - Start vent weaning if hypoxemia improves, attempt SBT GI: Transaminitis - Keep nothing by mouth, IV Protonix - Abdominal wall hematoma management as above - Elevated liver enzymes secondary to shock : Acute on chronic kidney failure - Acute kidney failure secondary to ATN - Previously on Bumex continue forced diuresis with IV Lasix ID - No evidence of sepsis. Follow-up on cultures. Continue Zosyn Endo: - Continue IV Synthroid DVT GI prophylaxis - Teds/SCDs - Hold pharmacological DVT prophylaxis due to acute blood loss - PPI Critical Care: The total critical care time was 45 minutes. Time to perform other separately billable procedures was not included in the critical care time. Remains critically ill with persistent hemorrhagic shock, now with hypoxemic respiratory failure Padmaja Wan MD Feb 28, 2017 07:07
--- NOTE | 2017-02-28 07:46 | RADRPT ---
EXAM DATE/TIME: 02/28/2017 07:01 [facility] COMPARISON: CHEST SINGLE AP, February 26, 2017, 18:12. INDICATIONS : Respiratory distress MEDICAL HISTORY : Cardiovascular disease. Hypertension. Chronic obstructive pulmonary disease SURGICAL HISTORY : Pacemaker. CABG ENCOUNTER: Subsequent ACUITY: 1 week PAIN SCORE: Non-responsive. LOCATION: Bilateral chest FINDINGS: Cardiomegaly has not changed. NG tube is present with tip in the stomach. ET tube is present with tip overlapping approximately 4 cm above the nohemy. Left basilar opacity is present may be due to a com bination of consolidation and or pleural effusion. Left subclavian pacer wires are present with tips in the right atrium and right ventricle. Left IJ line is present with tip overlapping the expected re gion of the brachiocephalic vein. CONCLUSION: Left basilar opacity is present may be due to a combination of consolidation and or pleural effusion. Ej You MD on February 28, 2017 at 7:42 Board Certified Radiologist. This report was verified electronically.
[2017-02-28] MEDS: INSULIN ASPART SUPPLEMENTAL SCALE SQ SCH ×4 (08:00→22:00)
[2017-02-28] MEDS: PANTOPRAZOLE SODIUM 40 MG VIAL IV PUSH SCH ×2 (08:52→21:39)
[2017-02-28] MEDS: VENLAFAXINE HCL XR 75 MG CAP PO SCH (08:52)
[2017-02-28] MEDS: SODIUM CHLORIDE 0.9% FLUSH 10 ML FLUSH IV FLUSH SCH ×2 (08:53→21:40)
[2017-02-28] MEDS: PIPERACIL-TAZO 3.375 GM PREMIX 50 ML IV SCH ×2 (08:53→16:31)
--- NOTE | 2017-02-28 08:57 | PD.CARD.PN ---
Subjective Subjective Remarks sedated in nad Objective Medications Current Medications Medications (Trade) Dose Ordered Sig/Alexa Route Start Time Stop Time Status Last Admin (Aspirin) 325 mg DAILY PO 02/23/17 09:00 Future Hold 02/25/17 08:24 (NovoLOG SUPPLEMENTAL SCALE) 1 ACHS SQ 02/22/17 12:00 02/27/17 19:12 (D50w (Vial) Inj) 50 ml UNSCH PRN IV PUSH 02/22/17 09:45 (Glucagon Inj) 1 mg UNSCH PRN OTHER 02/22/17 09:45 (Cordarone) 200 mg DAILY PO 02/23/17 09:00 Future Hold 02/26/17 09:19 (Lipitor) 40 mg HS PO 02/22/17 21:00 02/25/17 21:29 (Bumetanide) 1 mg DAILY PO 02/23/17 09:00 Future Hold (Imdur) 30 mg DAILY@0700 PO 02/23/17 07:00 02/26/17 09:19 (Synthroid) 200 mcg DAILY@0600 PO 02/23/17 06:00 02/26/17 05:08 (Lopressor) 50 mg BID PO 02/22/17 21:00 Future Hold 02/26/17 09:18 (Entresto 97-103 Mg) 1 tab BID PO 02/22/17 21:00 Future Hold 02/22/17 21:16 (Aldactone) 12.5 mg DAILY PO 02/23/17 09:00 Future Hold (Effexor Xr) 75 mg DAILY PO 02/23/17 09:00 02/28/17 08:52 (Pill Splitter) 1 ea UNSCH PRN OTHER 02/22/17 11:00 ([place] 5-325 Mg) 1 tab Q6H PRN PO 02/22/17 13:00 02/26/17 16:03 (Deltasone) 5 mg BID PO 02/22/17 21:00 Future Hold 02/26/17 09:19 (NS Flush) 2 ml BID IV FLUSH 02/26/17 21:00 02/27/17 21:24 (NS Flush) 2 ml UNSCH PRN IV FLUSH 02/26/17 16:15 Cefazolin Sodium/ Dextrose 50 ml @ 100 mls/hr [employer] IV 02/26/17 16:30 03/01/17 16:29 (Brethine Inj) 1 mg UNSCH PRN SQ 02/26/17 22:00 Dopamine HCl 800 mg/Dextrose 500 ml @ 24.93 mls/ hr TITRATE PRN IV 02/26/17 22:30 02/26/17 22:38 (Zofran Inj) 4 mg Q4H PRN IV PUSH 02/26/17 23:00 Vasopressin 40 units/Dextrose 100 ml @ 6 mls/hr TITRATE PRN IV 02/27/17 00:15 02/27/17 15:00 (Brethine Inj) 1 mg UNSCH PRN SQ 02/27/17 00:15 Sodium Bicarbonate 150 meq/Dextrose 1,150 ml @ 100 mls/hr [id number] IV 02/27/17 04:00 02/28/17 03:00 Linezolid 300 ml @ 300 mls/hr Q12H IV 02/27/17 04:00 02/28/17 04:40 Norepinephrine Bitartrate 250 ml @ 7.5 mls/hr TITRATE PRN IV 02/27/17 03:45 02/27/17 17:11 Phenylephrine HCl 40 mg/Dextrose 500 ml @ 30 mls/hr TITRATE PRN IV 02/27/17 03:45 02/28/17 01:10 (SoluCORTEF INJ) 100 mg Q8HR IV 02/27/17 14:00 02/28/17 05:50 (Protonix Inj) 40 mg Q12H IV PUSH 02/27/17 08:00 02/28/17 08:52 (Synthroid Inj) 75 mcg DAILY@06 IV PUSH 02/27/17 07:30 02/28/17 05:50 (Dilaudid Pf Inj) 1 mg Q3H PRN IV PUSH 02/27/17 07:15 (Ativan Inj) 0.5 mg Q2H PRN IV PUSH 02/27/17 07:15 (Duoneb Neb) 1 ampule Q6HR NEB NEB 02/27/17 10:00 02/28/17 08:11 Amiodarone HCl 450 mg/Sodium Chloride 250 ml @ 33.33 mls/ hr Q7H31M PRN IV 02/27/17 15:45 02/27/17 15:58 Fentanyl Citrate 250 ml @ 5 mls/hr TITRATE PRN IV 02/27/17 15:45 Propofol 100 ml @ 3.99 mls/hr TITRATE PRN IV 02/27/17 16:00 02/27/17 20:13 Piperacillin Sod/ Tazobactam Sod 50 ml @ 100 mls/hr Q8H IV 02/28/17 08:00 Vital Signs / I&O Vital Signs Date Time Temp Pulse Resp B/P (MAP) Pulse Ox O2 Delivery O2 Flow Rate FiO2 02/28/17 08:11 92 45 02/28/17 06:28 98 126/61 02/28/17 04:34 98.8 86 17 125/59 98 02/28/17 04:15 98 60 02/28/17 04:05 99.0 99 17 129/63 98 02/28/17 03:31 98.5 100 18 124/60 98 02/28/17 03:17 98 Mechanical Ventilator 60 02/28/17 03:16 98.9 91 17 137/62 (87) 98 02/28/17 03:16 60 02/28/17 03:00 100 02/28/17 02:26 98.8 95 17 135/61 99 02/28/17 01:12 98.8 102 17 128/55 100 02/28/17 01:10 103 126/56 02/28/17 00:38 98.7 109 17 140/60 99 02/28/17 00:32 99 60 02/27/17 23:39 60 02/27/17 23:15 98.4 93 17 128/59 (82) 100 02/27/17 23:00 99 Mechanical Ventilator 60 02/27/17 23:00 95 02/27/17 21:02 100 60 02/27/17 19:30 60 02/27/17 19:15 98.4 93 17 128/59 (82) 100 Automatic Cuff 02/27/17 19:00 99 Mechanical Ventilator 60 02/27/17 19:00 90 02/27/17 17:11 108 115/51 02/27/17 16:21 100 60 02/27/17 15:58 133 123/54 02/27/17 15:57 133 117/54 02/27/17 15:00 98.0 95 18 97 109/54 (72) 02/27/17 15:00 60 02/27/17 15:00 117 1/19/18 15:00 123 109/54 02/27/17 12:15 99 100 02/27/17 12:00 94 02/27/17 12:00 98.2 95 18 97 130/64 (86) 02/27/17 12:00 100 02/27/17 11:00 97.8 128 20 128/92 100 02/27/17 09:50 89 110/56 02/27/17 09:48 99 Nasal Cannula 3.00 02/27/17 09:32 79 18 116/55 99 02/27/17 09:15 97.8 80 18 116/47 99 I/O 02/27/17 02/27/17 02/27/17 02/28/17 02/28/17 02/28/17 07:00 15:00 23:00 07:00 15:00 23:00 Intake Total 8631.5 ml 3170 ml 5300.7 ml 4207.4 ml Output Total 400 ml 670 ml 355 ml Balance 8231.5 ml 3170 ml 4630.7 ml 3852.4 ml Intake Oral 100 ml IV Total 6002.5 ml 1560 ml 2750.7 ml 2857.4 ml Packed Cells 1200 ml 400 ml 1800 ml 800 ml FFP 644 ml 824 ml 500 ml Platelets 265 ml 250 ml Cryoprecipitate 216 ml Blood Product IV Normal Saline Flush 420 ml 170 ml 550 ml Output Urine Total 400 ml 270 ml 305 ml Gastric Drainage Total 400 ml 50 ml # Bowel Movements 0 0 Physical Exam GENERAL: SKIN: Warm and dry. HEAD: Normocephalic. EYES: No scleral icterus. No injection or drainage. NECK: Supple, trachea midline. No JVD or lymphadenopathy. CARDIOVASCULAR: Regular rate and rhythm without murmurs, gallops, or rubs. RESPIRATORY: Breath sounds equal bilaterally. No accessory muscle use. GASTROINTESTINAL: Abdomen soft, non-tender, nondistended. MUSCULOSKELETAL: No cyanosis, or edema. BACK: Nontender without obvious deformity. No CVA tenderness. Laboratory Laboratory Tests Test 02/27/17 10:30 02/27/17 12:40 02/27/17 15:15 02/27/17 16:30 Blood Gas Puncture Site DRAWN IN OR Blood Gas Patient Temperature 98.6 Blood Gas HCO3 19 mmol/L Blood Gas Base Excess -9.8 mmol/L Blood Gas Oxygen Saturation 96 % Arterial Blood pH 7.08 Arterial Blood Partial Pressure CO2 66 mmHg Arterial Blood Partial Pressure O2 166 mmHg Arterial Blood Oxygen Content 8.1 Vol % Arterial Blood Carboxyhemoglobin 1.0 % Arterial Blood Methemoglobin 1.5 % Blood Gas Hemoglobin 5.7 G/DL White Blood Count 10.1 TH/MM3 13.5 TH/MM3 Red Blood Count 3.36 MIL/MM3 3.10 MIL/MM3 Hemoglobin 9.8 GM/DL 9.0 GM/DL Hematocrit 28.5 % 25.9 % Mean Corpuscular Volume 84.8 FL 83.5 FL Mean Corpuscular Hemoglobin 29.3 PG 28.9 PG Mean Corpuscular Hemoglobin Concent 34.5 % 34.7 % Red Cell Distribution Width 16.9 % 16.6 % Platelet Count 112 TH/MM3 125 TH/MM3 Mean Platelet Volume 7.6 FL 7.9 FL Neutrophils (%) (Auto) 81.8 % 79.3 % Lymphocytes (%) (Auto) 5.1 % 7.9 % Monocytes (%) (Auto) 12.9 % 12.6 % Eosinophils (%) (Auto) 0.0 % 0.0 % Basophils (%) (Auto) 0.2 % 0.2 % Neutrophils # (Auto) 8.2 TH/MM3 10.7 TH/MM3 Lymphocytes # (Auto) 0.5 TH/MM3 1.1 TH/MM3 Monocytes # (Auto) 1.3 TH/MM3 1.7 TH/MM3 Eosinophils # (Auto) 0.0 TH/MM3 0.0 TH/MM3 Basophils # (Auto) 0.0 TH/MM3 0.0 TH/MM3 CBC Comment AUTO DIFF AUTO DIFF Differential Comment AUTO DIFF CONFIRMED FINAL DIFF MANUAL Prothrombin Time 13.5 SEC Prothromb Time International Ratio 1.3 RATIO Blood Urea Nitrogen 28 MG/DL 28 MG/DL Creatinine 1.40 MG/DL 1.59 MG/DL Random Glucose 151 MG/DL 147 MG/DL Total Protein 5.8 GM/DL 5.6 GM/DL Albumin 3.2 GM/DL 3.0 GM/DL Calcium Level 9.1 MG/DL 8.3 MG/DL Magnesium Level 1.5 MG/DL 1.4 MG/DL Alkaline Phosphatase 57 U/L 51 U/L Aspartate Amino Transf (AST/SGOT) 116 U/L 186 U/L Alanine Aminotransferase (ALT/SGPT) 61 U/L 95 U/L Total Bilirubin 1.3 MG/DL 1.7 MG/DL Sodium Level 143 MEQ/L 142 MEQ/L Potassium Level 4.3 MEQ/L 4.5 MEQ/L Chloride Level 107 MEQ/L 107 MEQ/L Carbon Dioxide Level 22.9 MEQ/L 24.1 MEQ/L Anion Gap 13 MEQ/L 11 MEQ/L Estimat Glomerular Filtration Rate 38 ML/MIN 33 ML/MIN Differential Total Cells Counted 100 Neutrophils % (Manual) 76 % Band Neutrophils % 5 % Lymphocytes % 13 % Monocytes % 5 % Neutrophils # (Manual) 11.1 TH/MM3 Myelocytes 1 % Toxic Granulation 1+ Platelet Estimate LOW Platelet Morphology Comment NORMAL Test 02/27/17 21:50 02/28/17 01:48 02/28/17 05:35 Hemoglobin 7.6 GM/DL 7.8 GM/DL 9.3 GM/DL White Blood Count 14.8 TH/MM3 Red Blood Count 3.17 MIL/MM3 Hematocrit 26.7 % Mean Corpuscular Volume 84.3 FL Mean Corpuscular Hemoglobin 29.5 PG Mean Corpuscular Hemoglobin Concent 35.0 % Red Cell Distribution Width 16.3 % Platelet Count 113 TH/MM3 Mean Platelet Volume 8.2 FL Neutrophils (%) (Auto) 82.9 % Lymphocytes (%) (Auto) 6.2 % Monocytes (%) (Auto) 10.7 % Eosinophils (%) (Auto) 0.0 % Basophils (%) (Auto) 0.2 % Neutrophils # (Auto) 12.2 TH/MM3 Lymphocytes # (Auto) 0.9 TH/MM3 Monocytes # (Auto) 1.6 TH/MM3 Eosinophils # (Auto) 0.0 TH/MM3 Basophils # (Auto) 0.0 TH/MM3 CBC Comment DIFF FINAL Differential Comment Prothrombin Time 12.7 SEC Prothromb Time International Ratio 1.3 RATIO Blood Urea Nitrogen 32 MG/DL Creatinine 2.14 MG/DL Random Glucose 220 MG/DL Total Protein 5.1 GM/DL Albumin 2.6 GM/DL Calcium Level 7.4 MG/DL Alkaline Phosphatase 46 U/L Aspartate Amino Transf (AST/SGOT) 363 U/L Alanine Aminotransferase (ALT/SGPT) 198 U/L Total Bilirubin 1.3 MG/DL Sodium Level 140 MEQ/L Potassium Level 4.2 MEQ/L Chloride Level 102 MEQ/L Carbon Dioxide Level 25.2 MEQ/L Anion Gap 13 MEQ/L Estimat Glomerular Filtration Rate 24 ML/MIN Protein Corrected Calcium 8.5 MG/DL Imaging Last 24 hours Impressions Chest X-Ray 02/28/17 0000 Signed Impressions: Service Date/Time: Tuesday, February 28, 2017 07:01 - CONCLUSION: Left basilar opacity is present may be due to a combination of consolidation and or pleural effusion. Ej You MD Angiography 02/27/17 1219 Signed Impressions: Service Date/Time: Monday, February 27, 2017 11:03 - CONCLUSION: No evidence of arterial injury and no findings to indicate site of bleeding to account for anterior abdominal wall hematoma. Savage Aranda MD Assessment and Plan Problem List: (1) PVD (peripheral vascular disease) ICD Codes: I73.9 - Peripheral vascular disease, unspecified (2) Anemia ICD Codes: D64.9 - Anemia, unspecified (3) Abdominal hematoma ICD Codes: S30.1XXA - Contusion of abdominal wall, initial encounter (4) Obesity ICD Codes: E66.9 - Obesity Status: Acute (5) SOB (shortness of breath) ICD Codes: R06.02 - SOB (shortness of breath) Status: Acute (6) Hx of coronary artery disease ICD Codes: Z86.79 - Personal history of other diseases of the circulatory system (7) Atrial fibrillation ICD Codes: I48.91 - Atrial fibrillation Status: Chronic (8) DM (diabetes mellitus) ICD Codes: E11.9 - DM (diabetes mellitus) Status: Chronic (9) Carotid stenosis ICD Codes: I65.29 - Occlusion and stenosis of unspecified carotid artery (10) History of four vessel coronary artery bypass graft ICD Codes: Z95.1 - Presence of aortocoronary bypass graft Assessment and Plan 1.) CAD - i could not image lyles, ow good flow to iw, lw, anterior wall with good wall motion but cant rule out lyles or lad disease therefore patient is moderate to high risk for noncardiac surgery, d/w Dr Cruz 2.) abdominal hematoma - rp bleed and groin hematoma ruled out, arterial injury and active bleeding from cath ruled out by angio 02/27/17, still requiring transfusion despite angiogram demonstrating no arterial injury or active bleeding suggesting bleeding is a local abdominal source, possibly due to lovenox injections, would explain why bleeding not tamponading as adipose tissue would lower resistance than rp or groin, still requiring transfusion and pressors but mental status good and u/o > 300/shift; d/w Dr Schafer 02/28/18 3.) PAF - in af rate controlled this am hr @ 85, ac held due to abdominal hematoma 4.) Carotid stenosis - surgery postponed due to abdominal hematoma Problem Qualifiers (1) Atrial fibrillation: Qualified Codes: I48.0 - Paroxysmal atrial fibrillation Macho Juarez MD Feb 28, 2017 08:57
[2017-02-28 10:56] LABS: BILIRUBIN, URINE NEG (NEG); BLOOD, URINE LARGE (NEG); GLUCOSE,URINE NEG (NEG); KETONE, URINE NEG (NEG); NITRITE,URINE NEG (NEG); URINE COLOR DARK-BROWN (YELLW/STRAW); URINE LEUKOCYTE ESTERASE TRACE (NEG)
[2017-02-28] MEDS: VASOPRESSIN 40 U/D5W 100 ML Titrate, Post Cardiac Surgery IV PRN ×2 (11:44)
[2017-02-28] MEDS: PROPOFOL 1000 MG/100 ML INJ 100 ML IV PRN (11:44)
--- NOTE | 2017-02-28 13:03 | EKG ---
Date Performed: 02/27/2017 Time Performed: 14:08:32 PTAGE: 61 years EKG: Ectopic atrial rhythm with bigeminal PACs Septal ST-T changes are nonspecific Abnormal ECG Compared to PREVIOUS TRACING , the above rhythm is new. Would attempt a repeat EKG at a slower rate t o exclude atrial fibrillation. PREVIOUS TRACIN02/26/2017 17.59 DOCTOR: Thom Alejandro Interpretating Date/Time 02/28/2017 13:02:47
--- NOTE | 2017-02-28 13:58 | HHI.PR ---
Subjective Remarks pt intubated and sedated Objective Vital Signs Date Time Temp Pulse Resp B/P (MAP) Pulse Ox O2 Delivery O2 Flow Rate FiO2 02/28/17 11:44 110 99/48 02/28/17 11:31 94 45 02/28/17 11:00 106 02/28/17 11:00 55 02/28/17 11:00 99.7 106 28 100/47 (64) 94 02/28/17 11:00 94 Mechanical Ventilator 55 02/28/17 10:45 95 55 02/28/17 10:45 55 02/28/17 08:11 92 45 02/28/17 07:00 93 Mechanical Ventilator 45 02/28/17 07:00 45 02/28/17 07:00 99.9 88 18 110/51 (70) 93 02/28/17 07:00 89 02/28/17 06:28 98 126/61 02/28/17 04:34 98.8 86 17 125/59 98 02/28/17 04:15 98 60 02/28/17 04:05 99.0 99 17 129/63 98 02/28/17 03:31 98.5 100 18 124/60 98 02/28/17 03:17 98 Mechanical Ventilator 60 02/28/17 03:16 98.9 91 17 137/62 (87) 98 02/28/17 03:16 60 02/28/17 03:00 100 02/28/17 02:26 98.8 95 17 135/61 99 02/28/17 01:12 98.8 102 17 128/55 100 02/28/17 01:10 103 126/56 02/28/17 00:38 98.7 109 17 140/60 99 02/28/17 00:32 99 60 02/27/17 23:39 60 02/27/17 23:15 98.4 93 17 128/59 (82) 100 02/27/17 23:00 99 Mechanical Ventilator 60 02/27/17 23:00 95 02/27/17 21:02 100 60 18 19:30 60 02/27/17 19:15 98.4 93 17 128/59 (82) 100 Automatic Cuff 02/27/17 19:00 99 Mechanical Ventilator 60 02/27/17 19:00 90 02/27/17 17:11 108 115/51 02/27/17 16:21 100 60 02/27/17 15:58 133 123/54 02/27/17 15:57 133 117/54 02/27/17 15:00 98.0 95 18 97 109/54 (72) 02/27/17 15:00 60 02/27/17 15:00 117 02/27/17 15:00 123 109/54 I/O 02/27/17 02/27/17 02/27/17 02/28/17 02/28/17 02/28/17 07:00 15:00 23:00 07:00 15:00 23:00 Intake Total 8631.5 ml 3170 ml 5300.7 ml 4207.4 ml 50 ml Output Total 400 ml 670 ml 355 ml Balance 8231.5 ml 3170 ml 4630.7 ml 3852.4 ml 50 ml Intake Oral 100 ml IV Total 6002.5 ml 1560 ml 2750.7 ml 2857.4 ml 50 ml Packed Cells 1200 ml 400 ml 1800 ml 800 ml FFP 644 ml 824 ml 500 ml Platelets 265 ml 250 ml Cryoprecipitate 216 ml Blood Product IV Normal Saline Flush 420 ml 170 ml 550 ml Output Urine Total 400 ml 270 ml 305 ml Gastric Drainage Total 400 ml 50 ml # Bowel Movements 0 0 VSS CHEST: CTA HEART: S1,S2,RRR ABD: ST, distended EXT: No edema Result Diagram: 02/28/17 0945 02/28/17 0535 Assessment and Plan Assessment and Plan I spoke with the radiologist sonia who went back and reviewed her abdominal CTA. He stated there was no retroperitoneal hematoma. she has large anterior abdominal wall hematoma with no sighs of extravasation. continue supportive management. Juhi Jim MD Feb 28, 2017 13:58
[2017-02-28 14:29] LABS: AUTOMATED NEUTROPHIL # 12.2 TH/MM3 (1.8-7.7); BASOPHIL % 0.1 % (0.0-2.0); HEMATOCRIT 25.1 % (35.0-46.0); HEMOGLOBIN 8.8 GM/DL (11.6-15.3); LYMPH % 6.5 % (9.0-44.0); LYMPHOCYTE # 0.9 TH/MM3 (1.0-4.8); MEAN CELL VOLUME 84.8 FL (80.0-100.0); MEAN CORPUSCULAR HEMOGLOBIN 29.8 PG (27.0-34.0); MEAN CORPUSCULAR HGB CONC 35.1 % (32.0-36.0); MEAN PLATELET VOLUME 8.2 FL (7.0-11.0); MONO % 8.3 % (0.0-8.0); MONOCYTE # 1.2 TH/MM3 (0-0.9); NEUT % 85.1 % (16.0-70.0); PLATELET COUNT 105 TH/MM3 (150-450); RED BLOOD COUNT 2.96 MIL/MM3 (4.00-5.30); RED CELL DISTRIBUTION WIDTH 16.4 % (11.6-17.2); WHITE BLOOD COUNT 14.3 TH/MM3 (4.0-11.0)
--- NOTE | 2017-02-28 14:36 | HHI.CCPN ---
Subjective Brief History The lady certainly presented with symptoms that are reminiscent of a TIA, but the side of stenosis does not quite resemble the symptoms. However, it is hard to tell with this patient. Ultrasound and CT of the carotids is consistent with about 70% right internal carotid artery stenosis, about 50% left. There are other studies pending. At this point, it is quite hard to tell if the symptoms were due to the carotid stenosis or maybe cardiac event. The patient is on Coumadin for apparently DVT , not previous A. Fib so we will see how she does in the next few days and then decide on further course of therapy. There is definitely no acute stroke. The dictum is that patients with a 70% carotid artery stenosis even if asymptomatic should be considered for carotid endarterectomy for risk of stroke is high and is about 8-12% a year. This patient is symptomatic, but it is quite unclear whether the symptoms are really from the carotid. underwent yesterday cardiac catheterization which was a technically difficult apparently and developed a large anterior abdominal wall hematoma from the same She dropped her pressure and developed hemorrhagic shock. Was resuscitated and placed and surgical ICU At this point clearly surgery will not be performed Patient will be off Coumadin and will go from there 24 Hour Review/Hospital Course 02/27/17 Is noted the patient developed hemorrhagic shock yesterday evening and displayed large anterior abdominal wall hematoma This is now resolving and patient is hemodynamically stable Clearly any carotid surgery is now the question and this will be rescheduled at some later date as an outpatient Whether patient will need any surgical intervention on her vessel is questionable at this time but there is no blush that would indicate continuous bleeding Patient underwent successful arteriogram in Endo suite yet no clear source of bleeding was found The CT of the abdomen clearly reveals hemoglobin level in the collection so this is consistent with probably 8 or 9 units of blood Right now this is a contained space and it will tamponade off as long as it stays intraperitoneal area. If this would rupture intraperitoneally then of course patient would require surgical evacuation of this emergently In the best case scenario would keep hemoglobin up and this is going to stop on its own and then when all things are done we can always evacuate this collection later On the other hand if she continues to bleed surgery is always an option 02/28/17 Patient intubated and ventilated Remains on propofol sedation Hemoglobin has somewhat stabilized although patient did receive another 2 units of blood for a 2 g drop. At this point there is no active bleeding and this is simply recalibration of intravascular volume and hemodilution due to third space mobilization Will not do anything surgically at this point yet in next few days when the whole thing stabilizes and patient is doing better we will have to surgically evacuate this hematoma but looks otherwise this is going to get infected considering the huge mass of blood in the properitoneal space Objective Vital Signs Date Time Temp Pulse Resp B/P (MAP) Pulse Ox O2 Delivery O2 Flow Rate FiO2 02/28/17 11:44 110 99/48 02/28/17 11:31 94 45 02/28/17 11:00 99.7 28 02/28/17 11:00 Mechanical Ventilator 02/27/17 09:48 3.00 Intake and Output 02/28/17 02/28/17 03/01/17 08:00 16:00 00:00 Intake Total 4207.4 ml 50 ml Output Total 355 ml Balance 3852.4 ml 50 ml Result Diagram: 02/28/17 0945 02/28/17 0535 Imaging Last 24 hours Impressions Chest X-Ray 02/28/17 0000 Signed Impressions: Service Date/Time: Tuesday, February 28, 2017 07:01 - CONCLUSION: Left basilar opacity is present may be due to a combination of consolidation and or pleural effusion. Ej You MD Exam [employer] Intubated and ventilated on propofol Hemodynamic/Cardiac Hemodynamically patient has stabilized and blood pressure around 100 systolic Jaron-Synephrine and norepinephrine have been discontinued and patient remains a very small dose 0.04 of vasopressin On the EKG somewhat hard to tell but I believe patient is still in controlled atrial fibrillation and remains on amiodarone Overall picture reveals some degree of hypovolemia and based on low urine output I would certainly urge patient be more volume loaded to improve the preloaded and prevent any further kidney damage Pulmonary/Respiratory Bilateral breath sounds ABG today looks much better and patient has resolved combined metabolic respiratory acidosis from yesterday Current studies do not show any improvement in renal function with a carbon and drip so my tendency would be to recommend discontinuing bicarbonate drip at this time Abdomen/GI Nutrition Abdomen is soft and patient is firm in the lower abdomen but this is preperitoneal hematoma and not one intra-peritoneally Therefore, I'm not worried about compartment syndrome in this situation because hematoma is pushing outward not inward As the patient stabilizes in next few days from hemodynamic metabolic and respiratory point we will have to consider draining this Probably wouldn't the approach this with surgery in about 45 days somewhere in the middle of next week Renal/I&O Preserved renal function with elevated BUN/creatinine creatinine. This patient has received a hit of hypovolemia and certainly has developed some degree of ATN consequent to the hypotensive shock. Renal function should gradually improve as long as patient is well intravascular volume preloaded Assessment and Plan Attestation Critical care time 42 minutes Chin Alcazar MD Feb 28, 2017 14:36
--- NOTE | 2017-02-28 14:56 | MA ---
cc: SCAR HERNANDEZ M.D. DATE: 02/26/2017. PROCEDURE PERFORMED: Right heart catheterization, left heart catheterization, left ventriculography, coronary angiography, ____ angiography, left subclavian angiography. INDICATIONS FOR THE PROCEDURE: Severe dyspnea on exertion with activities of daily living, worsening dyspnea on exertion, anginal equivalent, [place] [employer] class IV angina, [place] Heart Association class III congestive heart failure. DESCRIPTION OF THE PROCEDURE IN DETAIL: The patient was brought to the cardiac catheterization laboratory and prepped and draped in the usual sterile fashion. Distal pulses could not be palpated. I could not feel the right femoral artery pulse. I could not get access to the right femoral artery. I did Hussain's test of the right upper extremity and left upper extremity which was normal. This patient has a MONTOYA graft history. I attempted to get access to the left brachial artery. We could not image the brachial artery with ultrasound. We did get a Doppler signal. I could not access the artery with a regular finder needle. A tried a Doppler needle and could not get a signal with the Doppler needle, even going into the marked area from where we heard Doppler signal. I then tried access from the left femoral artery after locally anesthetizing with 20 cc of 1% lidocaine. I was able to access the left femoral artery with a #4 [place] sheath placed in the left common femoral artery and a 5-[place] sheath placed in the right common femoral vein. Right heart catheterization was performed first with the patient on two liters of nasal cannula with the following findings: Cardiac output 4.0 liters per minute. Cardiac index 2.3 liters[place] [address]. Saturations 98.9% femoral artery. PA was 65.3 and RA was 69.3. Right heart catheter pressures and pulmonary capillary wedge pressure is 22/21-17. PA pressure 36/20-27. RV pressure 34/9-13. RA pressure 14/15-__. Left heart catheterization was then performed with the 4-[place]er JR4, JL4 catheters with the following findings: The LV pressure is 110/10-12. The ejection fraction appears to be 55% to 60%. The first image was the vein graft to the right. There was ANJALI 1 to II flow into the mid segment and then the vessel was occluded at that point. Contrast remained in the graft for several minutes. The right coronary artery is dominant and has a 50% to 60% mid stenosis and is tortuous in the mid segment. The vein graft to the OM is occluded. The vein graft to the diagonal vessel is patent. There is retrograde filling to the left anterior descending with competitive flow seen back in the left main; however, no imaging of the left anterior descending is seen suggesting left anterior descending is occluded at the ostium. The left main coronary artery has no significant disease angiographically. The left circumflex vessel has an ostial 30% stenosis. The first obtuse marginal vessel is a 225 mm vessel, tortuous, no significant disease. There is a small posterolateral artery 2.0 mm vessel with no significant obstructive disease. The left anterior descending appears to be occluded at the ostium. There is a medium sized diagonal artery with retrograde flow into what appears to be a vein graft and competitive flow distally. NOTE: I attempted to image the MONTOYA however I could not pass a Glidewire through the left subclavian artery with a 4-[place]er JR4 multipurpose or MONTOYA catheter. Fluoroscopy revealed an extremely tortuous subclavian with a 150 degree bend going from lateral to medial and then a second 80% bend going back out the left subclavian artery. CONCLUSIONS: 1. Severe two vessel coronary artery disease in a right dominant system. 2. Patient vein graft to the diagonal vessel. 3. Occluded vein graft to the right coronary artery and the obtuse marginal. 4. Indeterminate patency of the MONTOYA to the left anterior descending. 5. Normal left ventricular systolic function by ventriculogram with no wall motion abnormality suggesting at least some patency of the MONTOYA to the left anterior descending as the anterior wall appears to be moving normally. 6. Discrepant right heart catheterization findings with a cardiac index of 2.3 liters/M2/minute and PA sat of 65%. 7. Recommend management of coronary artery disease, cardiac risk factor modification. 8. The patient is moderate to high risk for noncardiac surgery. 9. Mildly elevated PA pressures as detailed above. 10. Again, the patient is moderate to high risk for noncardiac surgery as I cannot image her MONTOYA to the left anterior descending. 11. Recommend continued medical management of coronary artery disease. Will continue to follow. MD LARRY James/CLOVIS /3:43 PM /2:21 PM
[2017-02-28] MEDS ORDERED: ALBUMIN 25% INJ 100 ML IV ONE (18:00)
--- NOTE | 2017-02-28 19:49 | HHI.IDPN ---
Subjective Subjective Remarks D X cover for Dr Kelly chart reviewd 61 yo morbidly obese female chart reviewed 61-year-old female with a past medical history significant for CAD status post CABG, atrial fibrillation, diabetes mellitus, polycystic kidney disease, CHF ( echo with EF of 55-60% in 2015), hypertension, hyperlipidemia and hypothyroidism presents to the emergency department complaining of dizziness and falling. Her CT of the neck show 70% occlusive disease off right carotid artery and she was planned to undergo right carotid endarterectomy. Further vascular procedures she underwent elective cardiac catheterization that shows patent vessels without significant obstructive disease. Shortly after procedure patient developed severe hypotension and tachycardia with systolic blood pressure at 60s and significant decrease in hemoglobin. She was taken emergently to CT of the abdomen/aorta runoff, the didn't show any dissection or aneurysm however shows large hematoma of abdominal wall. Today pt remains intubated critically ill on FiO2 at 60%. Remains on vasopressin at 0.04 international units per minute. sp 2 units of PRBC Creatinine has increased to 2.14. Urine output 575 mg in 24 hours. Blood clx negative @ 1 day, urine and sputum clx are negative Antibiotics zosyn Allergies: Coded Allergies: azithromycin (Unverified Allergy, Severe, 02/04/17) CAN NOT TAKE DUE TO STUDY MED cyclosporine (Unverified Allergy, Severe, 02/04/17) CAN NOT TAKE DUE TO STUDY MEDS erythromycin base (Unverified Allergy, Severe, 02/04/17) CAN NOT TAKE DUE TO STUDY MEDS vancomycin (Unverified Allergy, Severe, FACIAL SWELLING, 02/04/17) levofloxacin (Unverified Allergy, Mild, ITCHING, 02/04/17) MRI PRECAUTION (Verified Adverse Reaction, Severe, PACEMAKER/ DEFRIBRILLATOR, 02/22/17) [employer] PACER/DEFIBRILLATOR/JLA 02/22/17 *MDRO Multi-Drug Resistant Organism (Unverified Adverse Reaction, Unknown , 02/04/17) MRSA PCR Screen negative 09/01/14. Objective . Vital Signs Date Time Temp Pulse Resp B/P (MAP) Pulse Ox O2 Delivery O2 Flow Rate FiO2 02/28/17 16:47 91 55 02/28/17 15:51 94 45 02/28/17 15:00 106 02/28/17 15:00 55 02/28/17 15:00 95 Mechanical Ventilator 55 02/28/17 15:00 100.3 98 26 100/55 (70) 95 02/28/17 11:44 110 99/48 02/28/17 11:31 94 45 02/28/17 11:00 106 02/28/17 11:00 55 02/28/17 11:00 99.7 106 28 100/47 (64) 94 02/28/17 11:00 94 Mechanical Ventilator 55 02/28/17 10:45 95 55 02/28/17 10:45 55 02/28/17 08:11 92 45 02/28/17 07:00 93 Mechanical Ventilator 45 02/28/17 07:00 45 02/28/17 07:00 99.9 88 18 110/51 (70) 93 02/28/17 07:00 89 02/28/17 06:28 98 126/61 02/28/17 04:34 98.8 86 17 125/59 98 02/28/17 04:15 98 60 02/28/17 04:05 99.0 99 17 129/63 98 02/28/17 03:31 98.5 100 18 124/60 98 02/28/17 03:17 98 Mechanical Ventilator 60 02/28/17 03:16 98.9 91 17 137/62 (87) 98 02/28/17 03:16 60 02/28/17 03:00 100 02/28/17 02:26 98.8 95 17 135/61 99 02/28/17 01:12 98.8 102 17 128/55 100 02/28/17 01:10 103 126/56 02/28/17 00:38 98.7 109 17 140/60 99 02/28/17 00:32 99 60 02/27/17 23:39 60 02/27/17 23:15 98.4 93 17 128/59 (82) 100 02/27/17 23:00 99 Mechanical Ventilator 60 02/27/17 23:00 95 02/27/17 21:02 100 60 02/28/17 02/28/17 03/01/17 15:00 23:00 07:00 Intake Total 50 ml 1000 ml Output Total 420 ml Balance 50 ml 580 ml IV Total 50 ml 1000 ml Output Urine Total 420 ml . Laboratory Tests Test 02/27/17 00:53 02/27/17 03:40 02/27/17 08:15 02/27/17 12:40 White Blood Count 24.2 TH/MM3 17.8 TH/MM3 11.5 TH/MM3 10.1 TH/MM3 Red Blood Count 2.99 MIL/MM3 2.95 MIL/MM3 1.68 MIL/MM3 3.36 MIL/MM3 Hemoglobin 9.1 GM/DL 8.7 GM/DL 5.0 GM/DL 9.8 GM/DL Hematocrit 26.3 % 26.2 % 14.9 % 28.5 % Mean Corpuscular Volume 88.2 FL 89.1 FL 88.8 FL 84.8 FL Mean Corpuscular Hemoglobin 30.6 PG 29.6 PG 29.8 PG 29.3 PG Mean Corpuscular Hemoglobin Concent 34.7 % 33.2 % 33.6 % 34.5 % Red Cell Distribution Width 15.1 % 15.4 % 15.9 % 16.9 % Platelet Count 203 TH/MM3 149 TH/MM3 118 TH/MM3 112 TH/MM3 Mean Platelet Volume 7.6 FL 7.2 FL 7.9 FL 7.6 FL Neutrophils (%) (Auto) 83.4 % 80.3 % 81.8 % Lymphocytes (%) (Auto) 3.2 % 4.9 % 5.1 % Monocytes (%) (Auto) 13.3 % 14.6 % 12.9 % Eosinophils (%) (Auto) 0.0 % 0.0 % 0.0 % Basophils (%) (Auto) 0.1 % 0.2 % 0.2 % Neutrophils # (Auto) 20.2 TH/MM3 14.3 TH/MM3 8.2 TH/MM3 Lymphocytes # (Auto) 0.8 TH/MM3 0.9 TH/MM3 0.5 TH/MM3 Monocytes # (Auto) 3.2 TH/MM3 2.6 TH/MM3 1.3 TH/MM3 Eosinophils # (Auto) 0.0 TH/MM3 0.0 TH/MM3 0.0 TH/MM3 Basophils # (Auto) 0.0 TH/MM3 0.0 TH/MM3 0.0 TH/MM3 CBC Comment AUTO DIFF AUTO DIFF AUTO DIFF Differential Total Cells Counted 100 100 Neutrophils % (Manual) 79 % 71 % Band Neutrophils % 11 % 15 % Lymphocytes % 2 % 5 % Monocytes % 8 % 8 % Neutrophils # (Manual) 21.8 TH/MM3 15.5 TH/MM3 Differential Comment FINAL DIFF MANUAL FINAL DIFF MANUAL AUTO DIFF CONFIRMED Platelet Estimate NORMAL NORMAL Platelet Morphology Comment NORMAL NORMAL Red Cell Morphology Comment NORMAL Metamyelocytes 1 % Toxic Granulation 1+ Test 02/27/17 15:15 02/27/17 21:50 02/28/17 01:48 02/28/17 05:35 White Blood Count 13.5 TH/MM3 14.8 TH/MM3 Red Blood Count 3.10 MIL/MM3 3.17 MIL/MM3 Hemoglobin 9.0 GM/DL 7.6 GM/DL 7.8 GM/DL 9.3 GM/DL Hematocrit 25.9 % 26.7 % Mean Corpuscular Volume 83.5 FL 84.3 FL Mean Corpuscular Hemoglobin 28.9 PG 29.5 PG Mean Corpuscular Hemoglobin Concent 34.7 % 35.0 % Red Cell Distribution Width 16.6 % 16.3 % Platelet Count 125 TH/MM3 113 TH/MM3 Mean Platelet Volume 7.9 FL 8.2 FL Neutrophils (%) (Auto) 79.3 % 82.9 % Lymphocytes (%) (Auto) 7.9 % 6.2 % Monocytes (%) (Auto) 12.6 % 10.7 % Eosinophils (%) (Auto) 0.0 % 0.0 % Basophils (%) (Auto) 0.2 % 0.2 % Neutrophils # (Auto) 10.7 TH/MM3 12.2 TH/MM3 Lymphocytes # (Auto) 1.1 TH/MM3 0.9 TH/MM3 Monocytes # (Auto) 1.7 TH/MM3 1.6 TH/MM3 Eosinophils # (Auto) 0.0 TH/MM3 0.0 TH/MM3 Basophils # (Auto) 0.0 TH/MM3 0.0 TH/MM3 CBC Comment AUTO DIFF DIFF FINAL Differential Total Cells Counted 100 Neutrophils % (Manual) 76 % Band Neutrophils % 5 % Lymphocytes % 13 % Monocytes % 5 % Neutrophils # (Manual) 11.1 TH/MM3 Myelocytes 1 % Differential Comment FINAL DIFF MANUAL Toxic Granulation 1+ Platelet Estimate LOW Platelet Morphology Comment NORMAL Test 02/28/17 09:45 02/28/17 14:12 02/28/17 18:15 Hemoglobin 9.3 GM/DL 8.8 GM/DL 7.9 GM/DL White Blood Count 14.3 TH/MM3 Red Blood Count 2.96 MIL/MM3 Hematocrit 25.1 % Mean Corpuscular Volume 84.8 FL Mean Corpuscular Hemoglobin 29.8 PG Mean Corpuscular Hemoglobin Concent 35.1 % Red Cell Distribution Width 16.4 % Platelet Count 105 TH/MM3 Mean Platelet Volume 8.2 FL Neutrophils (%) (Auto) 85.1 % Lymphocytes (%) (Auto) 6.5 % Monocytes (%) (Auto) 8.3 % Eosinophils (%) (Auto) 0.0 % Basophils (%) (Auto) 0.1 % Neutrophils # (Auto) 12.2 TH/MM3 Lymphocytes # (Auto) 0.9 TH/MM3 Monocytes # (Auto) 1.2 TH/MM3 Eosinophils # (Auto) 0.0 TH/MM3 Basophils # (Auto) 0.0 TH/MM3 CBC Comment AUTO DIFF Differential Comment Laboratory Tests Test 02/27/17 00:53 02/27/17 03:40 02/27/17 08:15 02/27/17 12:40 Blood Urea Nitrogen 29 MG/DL 28 MG/DL 29 MG/DL 28 MG/DL Creatinine 1.29 MG/DL 1.38 MG/DL 1.47 MG/DL 1.40 MG/DL Random Glucose 158 MG/DL 186 MG/DL 214 MG/DL 151 MG/DL Total Protein 5.2 GM/DL 4.2 GM/DL 5.2 GM/DL 5.8 GM/DL Albumin 2.7 GM/DL 3.0 GM/DL 3.2 GM/DL Calcium Level 6.8 MG/DL 6.8 MG/DL 7.8 MG/DL 9.1 MG/DL Alkaline Phosphatase 61 U/L 49 U/L 57 U/L Aspartate Amino Transf (AST/SGOT) 16 U/L 43 U/L 116 U/L Alanine Aminotransferase (ALT/SGPT) 15 U/L 29 U/L 61 U/L Total Bilirubin 1.1 MG/DL 1.1 MG/DL 1.3 MG/DL Sodium Level 144 MEQ/L 144 MEQ/L 143 MEQ/L 143 MEQ/L Potassium Level 3.6 MEQ/L 3.9 MEQ/L 4.0 MEQ/L 4.3 MEQ/L Chloride Level 112 MEQ/L 115 MEQ/L 111 MEQ/L 107 MEQ/L Carbon Dioxide Level 20.8 MEQ/L 18.8 MEQ/L 19.6 MEQ/L 22.9 MEQ/L Anion Gap 11 MEQ/L 10 MEQ/L 12 MEQ/L 13 MEQ/L Estimat Glomerular Filtration Rate 42 ML/MIN 39 ML/MIN 36 ML/MIN 38 ML/MIN Protein Corrected Calcium 7.8 MG/DL 8.4 MG/DL Magnesium Level 1.5 MG/DL Test 02/27/17 15:15 02/28/17 05:35 Blood Urea Nitrogen 28 MG/DL 32 MG/DL Creatinine 1.59 MG/DL 2.14 MG/DL Random Glucose 147 MG/DL 220 MG/DL Total Protein 5.6 GM/DL 5.1 GM/DL Albumin 3.0 GM/DL 2.6 GM/DL Calcium Level 8.3 MG/DL 7.4 MG/DL Magnesium Level 1.4 MG/DL Alkaline Phosphatase 51 U/L 46 U/L Aspartate Amino Transf (AST/SGOT) 186 U/L 363 U/L Alanine Aminotransferase (ALT/SGPT) 95 U/L 198 U/L Total Bilirubin 1.7 MG/DL 1.3 MG/DL Sodium Level 142 MEQ/L 140 MEQ/L Potassium Level 4.5 MEQ/L 4.2 MEQ/L Chloride Level 107 MEQ/L 102 MEQ/L Carbon Dioxide Level 24.1 MEQ/L 25.2 MEQ/L Anion Gap 11 MEQ/L 13 MEQ/L Estimat Glomerular Filtration Rate 33 ML/MIN 24 ML/MIN Protein Corrected Calcium 8.5 MG/DL Microbiology Date/Time Source Procedure Growth Status 02/27/17 14:04 Blood Peripheral Aerobic Blood Culture - Preliminary NO GROWTH IN 1 DAY Resulted 02/27/17 14:04 Blood Peripheral Anaerobic Blood Culture - Preliminary NO GROWTH IN 1 DAY Resulted 02/27/17 13:59 Blood Peripheral Aerobic Blood Culture - Preliminary NO GROWTH IN 1 DAY Resulted 02/27/17 13:59 Blood Peripheral Anaerobic Blood Culture - Preliminary NO GROWTH IN 1 DAY Resulted 02/28/17 08:15 Sputum Endotracheal Gram Stain Pending Received 02/28/17 08:15 Sputum Endotracheal Sputum Culture Pending Received 02/28/17 08:35 Urine Catheterized Urine Urine Culture Pending Received Imaging Last Impressions Chest X-Ray 02/28/17 0000 Signed Impressions: Service Date/Time: Tuesday, February 28, 2017 07:01 - CONCLUSION: Left basilar opacity is present may be due to a combination of consolidation and or pleural effusion. Ej You MD Angiography 02/27/17 1219 Signed Impressions: Service Date/Time: Monday, February 27, 2017 11:03 - CONCLUSION: No evidence of arterial injury and no findings to indicate site of bleeding to account for anterior abdominal wall hematoma. Savage Aranda MD Aorta CTA 02/26/17 0000 Signed Impressions: Service Date/Time: February 19:19 - CONCLUSION: 1. Large anterior abdominal wall hematoma. 2. No aortic dissection or aneurysm. 3. Changes involving the liver suggesting cirrhosis. 4. Cholelithiasis. 5. Bibasilar atelectasis. 6. Cardiomegaly. Kiet Camarena Jr., MD Neck CTA 02/22/17 0000 Signed Impressions: Service Date/Time: Wednesday, February 22, 2017 06:25 - CONCLUSION: 1. Prominent atherosclerotic disease at carotid bulbs resulting in approximately 70%% stenosis of the proximal right ICA at its origin and approximately 40-50%% stenosis of the proximal left ICA. 2. Moderate grade stenosis of the proximal left common carotid artery at its origin. Gurdeep Laird MD Head CTA 02/22/17 0000 Signed Impressions: Service Date/Time: Wednesday, February 22, 2017 06:25 - CONCLUSION: No evidence of proximal high-grade stenosis or occlusion. Gurdeep Laird MD Head CT 02/22/17 0000 Signed Impressions: Service Date/Time: Wednesday, February 22, 2017 06:25 - CONCLUSION: Normal examination for a patient of this age. No significant change has occurred. Billy Weems MD Physical Exam IN GENERAL: Physical exam this is a morbidly obese female who is on the ventilator. She is unresponsive. HEAD, EYES, EARS, NOSE, AND THROAT: Unable to assess. The patient is intubated on ventilator. The external buccal mucosa appears moist. NECK: No swelling or adenopathy. LUNGS: Clear decreased breath sounds throughout. HEART: Irregular rate and rhythm. No murmurs audible. ABDOMEN: Markedly distended. Firm. : lee in place with cloudy and bloody urine EXTREMITIES: No clubbing or + cyanotic cold L foot + 2 + edema. SKIN: No diffuse rash. NEUROLOGIC: Sedated. Unrepsonsive PSYCHIATRIC: Unable to assess. Assessment & Plan Remarks IMPRESSION 1. Hemorrhagic shock. Patient with episode of hypotension and tachycardia and abdominal wall hematoma. 2. Leukocytosis and reactive the white blood cell count has improved very quickly. 3. Policystic kidney diseas kidney disease. The patient received contrast for radiographic study and also she was hypotensive and may have had also hypotensive insult to the kidney. 4. Multiple antibiotic allergies. RECOMMENDATIONS 1. Continue vancomycin for now. 2. Continue the Tazobactam for now. 3. Monitor blood and urine cultures 4. Follow the white count and clinical status. Marina Juarez MD Feb 28, 2017 19:49
[2017-02-28] MEDS: ATORVASTATIN 40 MG TAB PO SCH (21:39)
[2017-03-01] VITALS (16 sets, daily range): BP systolic 100–154; BP diastolic 55–87; PULSE 76–110; RESP 16–24; TEMP 97.4–99.6; O2SAT 89–98
[2017-03-01] MEDS: PIPERACIL-TAZO 3.375 GM PREMIX 50 ML IV SCH ×3 (01:58→16:00)
[2017-03-01] MEDS: VASOPRESSIN 40 U/D5W 100 ML Titrate, Post Cardiac Surgery IV PRN ×4 (01:59→20:33)
[2017-03-01] MEDS: RESP: ALBUTEROL 2.5 MG/IPRATROPIUM 0.5 MG NEB (SCH) NEB ×4 (03:54→21:52)
[2017-03-01] MEDS: LINEZOLID 600 MG PREMIX 300 ML IV SCH ×2 (04:02→16:00)
[2017-03-01] MEDS: SODIUM BICARBONATE 8.4% INJ 150 MEQ in DEXTROSE 5% IN WATE 1000ML INJ 1,000 ML IV SCH ×4 (04:05→13:30)
[2017-03-01] MEDS: PROPOFOL 1000 MG/100 ML INJ 100 ML IV PRN (04:06)
--- NOTE | 2017-03-01 04:30 | RADRPT ---
EXAM DATE/TIME: 03/01/2017 03:22 [facility] COMPARISON: CHEST SINGLE AP, February 28, 2017, 7:01. INDICATIONS : Shortness of breath, possible pulmonary disease. MEDICAL HISTORY : Cardiovascular disease. Hypertension Chronic obstructive pulmonary disease. SURGICAL HISTORY : Pacemaker. CABG. ENCOUNTER: Subsequent ACUITY: 1 week PAIN SCORE: Non-responsive. LOCATION: Bilateral chest FINDINGS: Stable ETT, NGT, and left IJ central line. Cardiac silhouette is enlarged with indistinct central pul monary vascularity. Persistent left lower lung zone pleural-parenchymal disease. Remainder of the exa m is unchanged. CONCLUSION: 1. Stable tubes and lines. 2. Cardiomegaly with positive fluid balance. 3. Stable left lower lung zone airspace disease and associated small pleural effusion. Sonu Esparza MD on March 01, 2017 at 4:27 Board Certified Radiologist. This report was verified electronically.
[2017-03-01] MEDS: AMIODARONE INJ 450 MG in SODIUM CHLOR 0.9% (EXCEL) INJ 241 ML IV PRN ×2 (04:34→20:33)
[2017-03-01 04:54] LABS: INTERNATIONAL NORMALIZED RATIO 1.4 RATIO; PROTHROMBIN TIME - PATIENT 13.7 SEC (9.8-11.6)
[2017-03-01 05:04] LABS: AUTOMATED NEUTROPHIL # 13.5 TH/MM3 (1.8-7.7); BASOPHIL % 0.1 % (0.0-2.0); HEMATOCRIT 27.9 % (35.0-46.0); HEMOGLOBIN 9.6 GM/DL (11.6-15.3); LYMPHOCYTE # 0.5 TH/MM3 (1.0-4.8); MEAN CELL VOLUME 86.3 FL (80.0-100.0); MEAN CORPUSCULAR HEMOGLOBIN 29.9 PG (27.0-34.0); MEAN CORPUSCULAR HGB CONC 34.6 % (32.0-36.0); MONO % 7.1 % (0.0-8.0); MONOCYTE # 1.1 TH/MM3 (0-0.9); NEUT % 89.8 % (16.0-70.0); PLATELET COUNT 90 TH/MM3 (150-450); RED BLOOD COUNT 3.23 MIL/MM3 (4.00-5.30); RED CELL DISTRIBUTION WIDTH 15.9 % (11.6-17.2); WHITE BLOOD COUNT 15.1 TH/MM3 (4.0-11.0)
[2017-03-01 05:11] LABS: ALBUMIN 2.8 GM/DL (3.4-5.0); BICARBONATE 27.5 MEQ/L (21.0-32.0); CALCIUM 7.3 MG/DL (8.5-10.1); CREATININE 2.1 MG/DL (0.50-1.00); MAGNESIUM 1.7 MG/DL (1.5-2.5)
[2017-03-01 05:14] LABS: CALCIUM-PROTEIN CORRECTED 7.9 MG/DL (8.5-10.1); TOTAL BILIRUBIN ADULT 1.3 MG/DL (0.2-1.0); TOTAL PROTEIN 5.9 GM/DL (6.4-8.2)
[2017-03-01] MEDS: LEVOTHYROXINE SODIUM 200 MCG TAB PO SCH (06:15)
[2017-03-01] MEDS: LEVOTHYROXINE SODIUM 100 MCG VIAL IV PUSH SCH (06:15)
[2017-03-01] MEDS: HYDROCORTISONE SOD SUCCINATE 100 MG VIAL IV SCH ×3 (06:15→22:09)
[2017-03-01] MEDS: ISOSORBIDE MONONITRATE 30 MG TAB PO SCH (07:00)
[2017-03-01] MEDS: INSULIN ASPART SUPPLEMENTAL SCALE SQ SCH ×4 (08:00→21:00)
[2017-03-01] MEDS ORDERED: POTASSIUM CHLOR 40 MEQ PREMIX 100 ML IV ONE (09:00)
[2017-03-01] MEDS ORDERED: FUROSEMIDE 20 MG/2 ML VIAL IV PUSH ONE (09:00)
--- NOTE | 2017-03-01 09:01 | HHI.CCPN ---
Subjective Remarks/Hospital Course 61-year-old female with a past medical history significant for CAD status post CABG, atrial fibrillation, diabetes mellitus, polycystic kidney disease, CHF ( echo with EF of 55-60% in 2015), hypertension, hyperlipidemia and hypothyroidism presents to the emergency department complaining of dizziness and falling. Her CT of the neck show 70% occlusive disease off right carotid artery and she was planned to undergo right carotid endarterectomy. Further vascular procedures she underwent elective cardiac catheterization that shows patent vessels without significant obstructive disease. Shortly after procedure patient developed severe hypotension and tachycardia with systolic blood pressure at 60s and significant decrease in hemoglobin. She was taken emergently to CT of the abdomen/aorta runoff, the didn't show any dissection or aneurysm however shows large hematoma of abdominal wall. SUBJ 02/27: Remains in profound shock. ON Levophed 20, Jaron 100, Vasopressin 0.04. Received total of 8 units of PRBC, 4 units of FFP to pack units of platelets and 2 cryo. Hb after 5U PRBC was 8.7 at 3 am. Discussed with vascular surgery Dr. Oliva re possible surgical intervention. Patient is also on chronic steroids prednisone 5 mg twice a day (for RA trial per patient). I will give 200 mg IV hydrocortisone STAT followed by 100 mg every 8 hours. Also change Synthroid to 75 g IV daily. Pain improved with Dilaudid. Will place on PRN Dilaudid. UO 400 ml overnight. Check bladder pressure 02/28: Remains intubated critically ill FiO2 at 60%. Remains on Jaron-Synephrine at 30 mcg/m, vasopressin at 0.04 international units per minute. Receive 2 units of PRBC for hemoglobin of 7.6 overnight. Today 9.3. Creatinine has increased to 2.14. Urine output 575 mg in 24 hours. 03/01: Remains critically ill on vasopressin. Received 2 units of PRBC for hemoglobin 7.6. Urine output increased with diuretics. 1.5 L in 24 hours, creatinine stable to slightly improved. Given Lasix 80 mg IV 1 now with potassium replacement. Start weaning trials again Objective Vital Signs Date Time Temp Pulse Resp B/P (MAP) Pulse Ox O2 Delivery O2 Flow Rate FiO2 03/01/17 08:46 94 45 03/01/17 07:00 97.4 76 17 105/61 (76) 100/59 (73) 03/01/17 07:00 Mechanical Ventilator 02/27/17 09:48 3.00 Intake and Output 03/01/17 03/01/17 03/02/17 08:00 16:00 00:00 Intake Total 4333 ml Output Total 1200 ml Balance 3133 ml Result Diagram: 03/01/17 0350 03/01/17 0350 Other Results Laboratory Tests Test 02/28/17 15:54 Blood Gas Puncture Site ART LINE Blood Gas Patient Temperature 98.6 Blood Gas HCO3 24 mmol/L (22-26) Blood Gas Base Excess -0.2 mmol/L (-2-2) Blood Gas Oxygen Saturation 89 % (90-100) Arterial Blood pH 7.43 (7.380-7.420) Arterial Blood Partial Pressure CO2 36 mmHg (38-42) Arterial Blood Partial Pressure O2 64 mmHg (61-120) Arterial Blood Oxygen Content 11.2 Vol % (12.0-20.0) Arterial Blood Carboxyhemoglobin 1.2 % (0-4) Arterial Blood Methemoglobin 1.4 % (0-2) Blood Gas Hemoglobin 8.9 G/DL (12.0-16.0) Oxygen Delivery Device VENTILATOR Blood Gas Ventilator Setting CPAP/PS12/PEEP8 Blood Gas Inspired Oxygen 45 % Imaging Last 24 hours Impressions Chest X-Ray 02/26/17 1812 Signed Impressions: Service Date/Time: February 18:12 - CONCLUSION: Stable exam with cardiomegaly and left basilar atelectasis. Kiet Camarena Jr., MD Aorta CTA 02/26/17 0000 Signed Impressions: Service Date/Time: February 19:19 - CONCLUSION: 1. Large anterior abdominal wall hematoma. 2. No aortic dissection or aneurysm. 3. Changes involving the liver suggesting cirrhosis. 4. Cholelithiasis. 5. Bibasilar atelectasis. 6. Cardiomegaly. Kiet Camarena Jr., MD Objective Remarks GENERAL: Morbidly obese patient. Intubated sedated, critically ill SKIN: Warm and dry. Ecchymosis lower abdomen HEAD: Normocephalic. ENT: Orotracheally intubated NECK: Supple, trachea midline. No JVD or lymphadenopathy. CARDIOVASCULAR: Regular rate and rhythm without murmurs, gallops, or rubs. Heart sounds are distant. On Amiodarone gtt RESPIRATORY: Breath sounds equal bilaterally. No accessory muscle use. GASTROINTESTINAL: Abdomen distended tender to palpation in the lower abdomen. Ecchymosis lower abdomen MUSCULOSKELETAL: No cyanosis, or edema. : Ferguson in place with blood-tinged urine NEURO EXAM: Patient is intubated sedated moves all extremities. Follows commands on sedation hold Urinary Catheter: Yes Assessment to: Continue Vascular Central Line Catheter: Yes Assessment to: Continue A/P Assessment and Plan Neuro: TIA - Propofol and fentanyl for sedation and vent synchrony, pain control - Daily sedation vacation - Previously planned CEA postponed indefinitely CVA/Heme: Hemorrhagic shock Large anterior abdominal wall/rectus sheath hematoma s/p cardiac catheterization Atrial fibrillation with RVR - Status post approximately 14 units PRBC, 4 units of FFP, 2 units of platelets , 2 cryo, including 2 units of PRBC last night - monitor hemoglobin, coags every 8 hours, monitor coags - Anterior abdominal wall hematoma on CTA. Discussed with vascular surgery Dr. Oliva, Dr. Whitley and Dr. Encarnacion. No active leak - Continue Aggressive transfusion as needed with blood products and PRBC - Surgical intervention and evacuation of hematoma indicated if uncontrolled bleeding - On chronic prednisone 5 mg twice a day. Started on stress dose steroids to 200 milligram 1 stat and 100 every 8 - Changed Synthroid to IV 75 g daily - Monitor H&H and transfuse for hemoglobin less than 8 - Currently weaned off Levophed. Continue to wean Jaron-Synephrine and vasopressin - Rate controlled, now NSR, On amiodarone IV and received single dose of digoxin - Hold anticoagulation due to blood loss - Hold all antiplatelet therapy Resp: Acute hypoxemic respiratory failure - Intubated by anesthesia for angiography but now with hypoxemic respiratory failure - Vent bundle, DuoNeb every 6 hours and when necessary - SBT again today GI: Transaminitis - Keep nothing by mouth, IV Protonix - Abdominal wall hematoma management as above - Elevated liver enzymes secondary to shock-now improving : Acute on chronic kidney failure - Acute kidney failure secondary to ATN - Previously on Bumex continue forced diuresis with IV Lasix - Urine output improving with Lasix. Given Lasix 80 mg IV 1 today, and start scheduled ID - No evidence of sepsis. Follow-up on cultures. Continue Zosyn, Zyvox per ID- consider de-escalation Endo: - Continue IV Synthroid DVT GI prophylaxis - Teds/SCDs - Hold pharmacological DVT prophylaxis due to acute blood loss - PPI Critical Care: The total critical care time was 35 minutes. Time to perform other separately billable procedures was not included in the critical care time. Remains critically ill with persistent hemorrhagic shock, now with hypoxemic respiratory failure Padmaja Wan MD Mar 01, 2017 09:01
[2017-03-01 09:21] LABS: BANDS 19 % (0-6); CORRECTED NUCLEATED RBC 1 /100 WBC (0-0); LYMPHOCYTES 2 % (9-44); MONOCYTES 7 % (0-8); NEUTROPHIL # MANUAL DIFF 13.6 TH/MM3 (1.8-7.7); NUCLEATED RED BLOOD CELL 1 (0-0); POLYS (SEG NEUTROPHILS) 71 % (16-70)
[2017-03-01] MEDS: PANTOPRAZOLE SODIUM 40 MG VIAL IV PUSH SCH ×2 (09:32→22:12)
[2017-03-01] MEDS: VENLAFAXINE HCL XR 75 MG CAP PO SCH (09:33)
[2017-03-01] MEDS: SODIUM CHLORIDE 0.9% FLUSH 10 ML FLUSH IV FLUSH SCH ×2 (09:33→22:10)
--- NOTE | 2017-03-01 10:57 | PD.CARD.PN ---
Subjective Subjective Remarks intubated, sedated in nad Objective Medications Current Medications Medications (Trade) Dose Ordered Sig/Alexa Route Start Time Stop Time Status Last Admin (Aspirin) 325 mg DAILY PO 02/23/17 09:00 Future Hold 02/25/17 08:24 (NovoLOG SUPPLEMENTAL SCALE) 1 ACHS SQ 02/22/17 12:00 02/28/17 22:00 (D50w (Vial) Inj) 50 ml UNSCH PRN IV PUSH 02/22/17 09:45 (Glucagon Inj) 1 mg UNSCH PRN OTHER 02/22/17 09:45 (Cordarone) 200 mg DAILY PO 02/23/17 09:00 Future Hold 02/26/17 09:19 (Lipitor) 40 mg HS PO 02/22/17 21:00 02/28/17 21:39 (Bumetanide) 1 mg DAILY PO 02/23/17 09:00 Future Hold (Imdur) 30 mg DAILY@0700 PO 02/23/17 07:00 02/26/17 09:19 (Synthroid) 200 mcg DAILY@0600 PO 02/23/17 06:00 Future Hold 03/01/17 06:15 (Lopressor) 50 mg BID PO 02/22/17 21:00 Future Hold 02/26/17 09:18 (Entresto 97-103 Mg) 1 tab BID PO 02/22/17 21:00 Future Hold 02/22/17 21:16 (Aldactone) 12.5 mg DAILY PO 02/23/17 09:00 Future Hold (Effexor Xr) 75 mg DAILY PO 02/23/17 09:00 03/01/17 09:33 (Pill Splitter) 1 ea UNSCH PRN OTHER 02/22/17 11:00 ([place] 5-325 Mg) 1 tab Q6H PRN PO 02/22/17 13:00 02/26/17 16:03 (Deltasone) 5 mg BID PO 02/22/17 21:00 Future Hold 02/26/17 09:19 (NS Flush) 2 ml BID IV FLUSH 02/26/17 21:00 03/01/17 09:33 (NS Flush) 2 ml UNSCH PRN IV FLUSH 02/26/17 16:15 Cefazolin Sodium/ Dextrose 50 ml @ 100 mls/hr ECONOMICS ANALYST IV 02/26/17 16:30 03/01/17 16:29 (Brethine Inj) 1 mg UNSCH PRN SQ 02/26/17 22:00 Dopamine HCl 800 mg/Dextrose 500 ml @ 24.93 mls/ hr TITRATE PRN IV 02/26/17 22:30 02/26/17 22:38 (Zofran Inj) 4 mg Q4H PRN IV PUSH 02/26/17 23:00 Vasopressin 40 units/Dextrose 100 ml @ 6 mls/hr TITRATE PRN IV 02/27/17 00:15 03/01/17 01:59 (Brethine Inj) 1 mg UNSCH PRN SQ 02/27/17 00:15 Sodium Bicarbonate 150 meq/Dextrose 1,150 ml @ 100 mls/hr [id number] IV 02/27/17 04:00 03/01/17 04:05 Linezolid 300 ml @ 300 mls/hr Q12H IV 02/27/17 04:00 03/01/17 04:02 Norepinephrine Bitartrate 250 ml @ 7.5 mls/hr TITRATE PRN IV 02/27/17 03:45 02/27/17 17:11 Phenylephrine HCl 40 mg/Dextrose 500 ml @ 30 mls/hr TITRATE PRN IV 02/27/17 03:45 02/28/17 01:10 (SoluCORTEF INJ) 100 mg Q8HR IV 02/27/17 14:00 03/01/17 06:15 (Protonix Inj) 40 mg Q12H IV PUSH 02/27/17 08:00 03/01/17 09:32 (Synthroid Inj) 75 mcg DAILY@06 IV PUSH 02/27/17 07:30 03/01/17 06:15 (Dilaudid Pf Inj) 1 mg Q3H PRN IV PUSH 02/27/17 07:15 (Ativan Inj) 0.5 mg Q2H PRN IV PUSH 02/27/17 07:15 (Duoneb Neb) 1 ampule Q6HR NEB NEB 02/27/17 10:00 03/01/17 08:46 Amiodarone HCl 450 mg/Sodium Chloride 250 ml @ 33.33 mls/ hr Q7H31M PRN IV 02/27/17 15:45 03/01/17 04:34 Fentanyl Citrate 250 ml @ 5 mls/hr TITRATE PRN IV 02/27/17 15:45 Propofol 100 ml @ 3.99 mls/hr TITRATE PRN IV 02/27/17 16:00 03/01/17 04:06 Piperacillin Sod/ Tazobactam Sod 50 ml @ 100 mls/hr Q8H IV 02/28/17 08:00 03/01/17 09:33 Potassium Chloride 100 ml @ 25 mls/hr BOLUS ONCE IV 03/01/17 09:00 03/01/17 12:59 03/01/17 09:33 (Lasix Inj) 40 mg BID@,18 IV PUSH 03/01/17 18:00 (KCl) 20 meq Q12HR PO 03/01/17 21:00 Vital Signs / I&O Vital Signs Date Time Temp Pulse Resp B/P (MAP) Pulse Ox O2 Delivery O2 Flow Rate FiO2 03/01/17 09:51 45 03/01/17 09:51 89 45 03/01/17 08:46 94 45 03/01/17 07:00 45 03/01/17 07:00 97.4 76 17 105/61 (76) 94 100/59 (73) 03/01/17 07:00 94 Mechanical Ventilator 45 03/01/17 07:00 76 03/01/17 05:00 92 118/51 03/01/17 05:00 92 118/51 03/01/17 04:34 84 115/62 03/01/17 03:57 98 45 03/01/17 03:00 98 03/01/17 03:00 50 03/01/17 03:00 97 Mechanical Ventilator 45 03/01/17 03:00 99.6 98 18 144/82 (102) 97 154/87 (109) 03/01/17 01:59 91 128/84 03/01/17 00:55 96 50 02/28/17 23:00 100.1 100 16 125/65 (85) 94 Arterial Line 02/28/17 23:00 100 02/28/17 23:00 94 Mechanical Ventilator 50 02/28/17 23:00 50 02/28/17 22:19 92 55 02/28/17 20:24 94 55 02/28/17 19:00 94 Mechanical Ventilator 55 02/28/17 19:00 91 02/28/17 19:00 55 02/28/17 19:00 99.9 91 18 109/55 (73) 94 Arterial Line 02/28/17 16:47 91 55 02/28/17 15:51 94 45 02/28/17 15:00 106 02/28/17 15:00 55 02/28/17 15:00 95 Mechanical Ventilator 55 02/28/17 15:00 100.3 98 26 100/55 (70) 95 02/28/17 11:44 110 99/48 02/28/17 11:31 94 45 02/28/17 11:00 106 02/28/17 11:00 55 02/28/17 11:00 99.7 106 28 100/47 (64) 94 02/28/17 11:00 94 Mechanical Ventilator 55 I/O 02/28/17 02/28/17 02/28/17 03/01/17 03/01/17 03/01/17 07:00 15:00 23:00 07:00 15:00 23:00 Intake Total 4207.4 ml 50 ml 1000 ml 4333 ml Output Total 355 ml 420 ml 1200 ml Balance 3852.4 ml 50 ml 580 ml 3133 ml IV Total 2857.4 ml 50 ml 1000 ml 3413 ml Packed Cells 800 ml 800 ml Blood Product IV Normal Saline Flush 550 ml 120 ml Output Urine Total 305 ml 420 ml 1100 ml Gastric Drainage Total 50 ml 100 ml # Bowel Movements 1 Physical Exam GENERAL: SKIN: Warm and dry. HEAD: Normocephalic. EYES: No scleral icterus. No injection or drainage. NECK: Supple, trachea midline. No JVD or lymphadenopathy. CARDIOVASCULAR: Regular rate and rhythm without murmurs, gallops, or rubs. RESPIRATORY: Breath sounds equal bilaterally. No accessory muscle use. GASTROINTESTINAL: Abdomen soft, non-tender, nondistended. MUSCULOSKELETAL: No cyanosis, or edema. BACK: Nontender without obvious deformity. No CVA tenderness. Laboratory Laboratory Tests Test 02/28/17 14:12 02/28/17 15:54 02/28/17 18:15 02/28/17 22:10 White Blood Count 14.3 TH/MM3 Red Blood Count 2.96 MIL/MM3 Hemoglobin 8.8 GM/DL 7.9 GM/DL 7.6 GM/DL Hematocrit 25.1 % Mean Corpuscular Volume 84.8 FL Mean Corpuscular Hemoglobin 29.8 PG Mean Corpuscular Hemoglobin Concent 35.1 % Red Cell Distribution Width 16.4 % Platelet Count 105 TH/MM3 Mean Platelet Volume 8.2 FL Neutrophils (%) (Auto) 85.1 % Lymphocytes (%) (Auto) 6.5 % Monocytes (%) (Auto) 8.3 % Eosinophils (%) (Auto) 0.0 % Basophils (%) (Auto) 0.1 % Neutrophils # (Auto) 12.2 TH/MM3 Lymphocytes # (Auto) 0.9 TH/MM3 Monocytes # (Auto) 1.2 TH/MM3 Eosinophils # (Auto) 0.0 TH/MM3 Basophils # (Auto) 0.0 TH/MM3 CBC Comment AUTO DIFF Differential Comment Blood Gas Puncture Site ART LINE Blood Gas Patient Temperature 98.6 Blood Gas HCO3 24 mmol/L Blood Gas Base Excess -0.2 mmol/L Blood Gas Oxygen Saturation 89 % Arterial Blood pH 7.43 Arterial Blood Partial Pressure CO2 36 mmHg Arterial Blood Partial Pressure O2 64 mmHg Arterial Blood Oxygen Content 11.2 Vol % Arterial Blood Carboxyhemoglobin 1.2 % Arterial Blood Methemoglobin 1.4 % Blood Gas Hemoglobin 8.9 G/DL Oxygen Delivery Device VENTILATOR Blood Gas Ventilator Setting CPAP/PS12/[id number] Blood Gas Inspired Oxygen 45 % Test 03/01/17 03:50 White Blood Count 15.1 TH/MM3 Red Blood Count 3.23 MIL/MM3 Hemoglobin 9.6 GM/DL Hematocrit 27.9 % Mean Corpuscular Volume 86.3 FL Mean Corpuscular Hemoglobin 29.9 PG Mean Corpuscular Hemoglobin Concent 34.6 % Red Cell Distribution Width 15.9 % Platelet Count 90 TH/MM3 Mean Platelet Volume 8.0 FL Neutrophils (%) (Auto) 89.8 % Lymphocytes (%) (Auto) 3.0 % Monocytes (%) (Auto) 7.1 % Eosinophils (%) (Auto) 0.0 % Basophils (%) (Auto) 0.1 % Neutrophils # (Auto) 13.5 TH/MM3 Lymphocytes # (Auto) 0.5 TH/MM3 Monocytes # (Auto) 1.1 TH/MM3 Eosinophils # (Auto) 0.0 TH/MM3 Basophils # (Auto) 0.0 TH/MM3 CBC Comment AUTO DIFF Differential Total Cells Counted 100 Neutrophils % (Manual) 71 % Band Neutrophils % 19 % Lymphocytes % 2 % Monocytes % 7 % Eosinophils % 1 % Neutrophils # (Manual) 13.6 TH/MM3 Nucleated Red Blood Cells 1 /100 WBC Differential Comment FINAL DIFF MANUAL Platelet Estimate LOW Platelet Morphology Comment NORMAL Prothrombin Time 13.7 SEC Prothromb Time International Ratio 1.4 RATIO Blood Urea Nitrogen 37 MG/DL Creatinine 2.10 MG/DL Random Glucose 162 MG/DL Total Protein 5.9 GM/DL Albumin 2.8 GM/DL Calcium Level 7.3 MG/DL Magnesium Level 1.7 MG/DL Alkaline Phosphatase 56 U/L Aspartate Amino Transf (AST/SGOT) 244 U/L Alanine Aminotransferase (ALT/SGPT) 179 U/L Total Bilirubin 1.3 MG/DL Sodium Level 139 MEQ/L Potassium Level 3.4 MEQ/L Chloride Level 100 MEQ/L Carbon Dioxide Level 27.5 MEQ/L Anion Gap 12 MEQ/L Estimat Glomerular Filtration Rate 24 ML/MIN Protein Corrected Calcium 7.9 MG/DL Imaging Last 24 hours Impressions Chest X-Ray 03/01/17 0600 Signed Impressions: Service Date/Time: Wednesday, March 01, 2017 03:22 - CONCLUSION: 1. Stable tubes and lines. 2. Cardiomegaly with positive fluid balance. 3. Stable left lower lung zone airspace disease and associated small pleural effusion. Sonu Esparza MD Assessment and Plan Problem List: (1) PVD (peripheral vascular disease) ICD Codes: I73.9 - Peripheral vascular disease, unspecified (2) Anemia ICD Codes: D64.9 - Anemia, unspecified (3) Abdominal hematoma ICD Codes: S30.1XXA - Contusion of abdominal wall, initial encounter (4) Obesity ICD Codes: E66.9 - Obesity Status: Acute (5) SOB (shortness of breath) ICD Codes: R06.02 - SOB (shortness of breath) Status: Acute (6) Hx of coronary artery disease ICD Codes: Z86.79 - Personal history of other diseases of the circulatory system (7) Atrial fibrillation ICD Codes: I48.91 - Atrial fibrillation Status: Chronic (8) DM (diabetes mellitus) ICD Codes: E11.9 - DM (diabetes mellitus) Status: Chronic (9) Carotid stenosis ICD Codes: I65.29 - Occlusion and stenosis of unspecified carotid artery (10) History of four vessel coronary artery bypass graft ICD Codes: Z95.1 - Presence of aortocoronary bypass graft Assessment and Plan 1.) CAD - i could not image lyles, ow good flow to iw, lw, anterior wall with good wall motion but cant rule out lyles or lad disease therefore patient is moderate to high risk for noncardiac surgery, d/w Dr Cruz 2.) abdominal hematoma - rp bleed and groin hematoma ruled out, arterial injury and active bleeding from cath ruled out by angio 02/27/17, still requiring transfusion despite angiogram demonstrating no arterial injury or active bleeding suggesting bleeding is a local abdominal source, possibly due to lovenox injections, would explain why bleeding not tamponading as adipose tissue would lower resistance than rp or groin, still requiring transfusion and pressors but mental status good and u/o > 300/shift; d/w Dr Schafer 02/28/18 3.) PAF - in af rate controlled this am hr @ 85, ac held due to abdominal hematoma 4.) Carotid stenosis - surgery postponed due to abdominal hematoma 5.) Anemia - rate of transfusion decreasing, u/o increasing on lasix, pressors being weaned, continue to monitor hgb Problem Qualifiers (1) Atrial fibrillation: Qualified Codes: I48.0 - Paroxysmal atrial fibrillation Macho Juarez MD Mar 01, 2017 10:56
[2017-03-01 16:09] LABS: AUTOMATED NEUTROPHIL # 15.5 TH/MM3 (1.8-7.7); BASOPHIL % 0.1 % (0.0-2.0); HEMATOCRIT 29.3 % (35.0-46.0); LYMPH % 2.1 % (9.0-44.0); LYMPHOCYTE # 0.4 TH/MM3 (1.0-4.8); MEAN CELL VOLUME 87.1 FL (80.0-100.0); MEAN CORPUSCULAR HEMOGLOBIN 29.7 PG (27.0-34.0); MEAN CORPUSCULAR HGB CONC 34.1 % (32.0-36.0); MEAN PLATELET VOLUME 7.9 FL (7.0-11.0); NEUT % 91.8 % (16.0-70.0); PLATELET COUNT 107 TH/MM3 (150-450); RED BLOOD COUNT 3.37 MIL/MM3 (4.00-5.30); WHITE BLOOD COUNT 16.9 TH/MM3 (4.0-11.0)
[2017-03-01 16:29] LABS: ALBUMIN 2.9 GM/DL (3.4-5.0); ALT (GPT) 163 U/L (10-53); AST (GOT) 190 U/L (15-37); BICARBONATE 30.7 MEQ/L (21.0-32.0); BLOOD UREA NITROGEN 34 MG/DL (7-18); CALCIUM 7.9 MG/DL (8.5-10.1); CHLORIDE 98 MEQ/L (98-107); CREATININE 1.83 MG/DL (0.50-1.00); GLOMERULAR FILTRATION RATE 28 ML/MIN (>89); GLUCOSE,RANDOM 126 MG/DL (74-106); SODIUM (NA) 140 MEQ/L (136-145)
[2017-03-01 16:32] LABS: ALKALINE PHOSPHATASE 67 U/L (45-117); TOTAL BILIRUBIN ADULT 1.4 MG/DL (0.2-1.0); TOTAL PROTEIN 6.2 GM/DL (6.4-8.2)
[2017-03-01] MEDS ORDERED: DIGOXIN 0.5 MG/2 ML VIAL IV PUSH ONE ×2 (17:30→18:15)
[2017-03-01] MEDS ORDERED: FUROSEMIDE 40 MG/4 ML VIAL IV PUSH SCH (18:00)
--- NOTE | 2017-03-01 19:55 | HHI.IDPN ---
Subjective Subjective Remarks D X cover for Dr Kelly chart reviewd extubated On BIPAP afebrile though yday fever up to 101 Antibiotics zosyn zyvox Allergies: Coded Allergies: azithromycin (Unverified Allergy, Severe, 02/04/17) CAN NOT TAKE DUE TO STUDY MED cyclosporine (Unverified Allergy, Severe, 02/04/17) CAN NOT TAKE DUE TO STUDY MEDS erythromycin base (Unverified Allergy, Severe, 02/04/17) CAN NOT TAKE DUE TO STUDY MEDS vancomycin (Unverified Allergy, Severe, FACIAL SWELLING, 02/04/17) levofloxacin (Unverified Allergy, Mild, ITCHING, 02/04/17) MRI PRECAUTION (Verified Adverse Reaction, Severe, PACEMAKER/ DEFRIBRILLATOR, 02/22/17) [place] 4Blox PACER/DEFIBRILLATOR/JLA 02/22/17 *MDRO Multi-Drug Resistant Organism (Unverified Adverse Reaction, Unknown , 02/04/17) MRSA PCR Screen negative 09/01/14. Objective . Vital Signs Date Time Temp Pulse Resp B/P (MAP) Pulse Ox O2 Delivery O2 Flow Rate FiO2 03/01/17 17:47 90 50 03/01/17 16:29 20 03/01/17 15:00 94 03/01/17 15:00 98.1 94 16 114/79 (91) 92 104/64 (77) 03/01/17 15:00 91 Nasal Cannula 6.00 03/01/17 13:56 90 Venturi Mask 50 03/01/17 13:56 90 Nasal Cannula 6 03/01/17 11:49 92 45 03/01/17 11:00 97 03/01/17 11:00 94 Mechanical Ventilator 45 03/01/17 11:00 45 03/01/17 11:00 98.1 97 16 141/55 (83) 93 108/64 (79) 03/01/17 09:51 45 03/01/17 09:51 89 45 03/01/17 08:46 94 45 03/01/17 07:00 45 03/01/17 07:00 97.4 76 17 105/61 (76) 94 100/59 (73) 03/01/17 07:00 94 Mechanical Ventilator 45 03/01/17 07:00 76 03/01/17 05:00 92 118/51 03/01/17 05:00 92 118/51 03/01/17 04:34 84 115/62 03/01/17 03:57 98 45 03/01/17 03:00 98 03/01/17 03:00 50 03/01/17 03:00 97 Mechanical Ventilator 45 03/01/17 03:00 99.6 98 18 144/82 (102) 97 154/87 (109) 03/01/17 01:59 91 128/84 03/01/17 00:55 96 50 02/28/17 23:00 100.1 100 16 125/65 (85) 94 Arterial Line 02/28/17 23:00 100 02/28/17 23:00 94 Mechanical Ventilator 50 02/28/17 23:00 50 02/28/17 22:19 92 55 02/28/17 20:24 94 55 03/01/17 03/01/17 03/02/17 15:00 23:00 07:00 Intake Total 200 ml Output Total 2085 ml Balance 200 ml -2085 ml IV Total 200 ml Output Urine Total 2085 ml # Bowel Movements 1 . Laboratory Tests Test 02/27/17 21:50 02/28/17 01:48 02/28/17 05:35 02/28/17 09:45 Hemoglobin 7.6 GM/DL 7.8 GM/DL 9.3 GM/DL 9.3 GM/DL White Blood Count 14.8 TH/MM3 Red Blood Count 3.17 MIL/MM3 Hematocrit 26.7 % Mean Corpuscular Volume 84.3 FL Mean Corpuscular Hemoglobin 29.5 PG Mean Corpuscular Hemoglobin Concent 35.0 % Red Cell Distribution Width 16.3 % Platelet Count 113 TH/MM3 Mean Platelet Volume 8.2 FL Neutrophils (%) (Auto) 82.9 % Lymphocytes (%) (Auto) 6.2 % Monocytes (%) (Auto) 10.7 % Eosinophils (%) (Auto) 0.0 % Basophils (%) (Auto) 0.2 % Neutrophils # (Auto) 12.2 TH/MM3 Lymphocytes # (Auto) 0.9 TH/MM3 Monocytes # (Auto) 1.6 TH/MM3 Eosinophils # (Auto) 0.0 TH/MM3 Basophils # (Auto) 0.0 TH/MM3 CBC Comment DIFF FINAL Differential Comment Test 02/28/17 14:12 02/28/17 18:15 02/28/17 22:10 03/01/17 03:50 White Blood Count 14.3 TH/MM3 15.1 TH/MM3 Red Blood Count 2.96 MIL/MM3 3.23 MIL/MM3 Hemoglobin 8.8 GM/DL 7.9 GM/DL 7.6 GM/DL 9.6 GM/DL Hematocrit 25.1 % 27.9 % Mean Corpuscular Volume 84.8 FL 86.3 FL Mean Corpuscular Hemoglobin 29.8 PG 29.9 PG Mean Corpuscular Hemoglobin Concent 35.1 % 34.6 % Red Cell Distribution Width 16.4 % 15.9 % Platelet Count 105 TH/MM3 90 TH/MM3 Mean Platelet Volume 8.2 FL 8.0 FL Neutrophils (%) (Auto) 85.1 % 89.8 % Lymphocytes (%) (Auto) 6.5 % 3.0 % Monocytes (%) (Auto) 8.3 % 7.1 % Eosinophils (%) (Auto) 0.0 % 0.0 % Basophils (%) (Auto) 0.1 % 0.1 % Neutrophils # (Auto) 12.2 TH/MM3 13.5 TH/MM3 Lymphocytes # (Auto) 0.9 TH/MM3 0.5 TH/MM3 Monocytes # (Auto) 1.2 TH/MM3 1.1 TH/MM3 Eosinophils # (Auto) 0.0 TH/MM3 0.0 TH/MM3 Basophils # (Auto) 0.0 TH/MM3 0.0 TH/MM3 CBC Comment AUTO DIFF AUTO DIFF Differential Comment FINAL DIFF MANUAL Differential Total Cells Counted 100 Neutrophils % (Manual) 71 % Band Neutrophils % 19 % Lymphocytes % 2 % Monocytes % 7 % Eosinophils % 1 % Neutrophils # (Manual) 13.6 TH/MM3 Nucleated Red Blood Cells 1 /100 WBC Platelet Estimate LOW Platelet Morphology Comment NORMAL Test 03/01/17 15:27 White Blood Count 16.9 TH/MM3 Red Blood Count 3.37 MIL/MM3 Hemoglobin 10.0 GM/DL Hematocrit 29.3 % Mean Corpuscular Volume 87.1 FL Mean Corpuscular Hemoglobin 29.7 PG Mean Corpuscular Hemoglobin Concent 34.1 % Red Cell Distribution Width 16.0 % Platelet Count 107 TH/MM3 Mean Platelet Volume 7.9 FL Neutrophils (%) (Auto) 91.8 % Lymphocytes (%) (Auto) 2.1 % Monocytes (%) (Auto) 6.0 % Eosinophils (%) (Auto) 0.0 % Basophils (%) (Auto) 0.1 % Neutrophils # (Auto) 15.5 TH/MM3 Lymphocytes # (Auto) 0.4 TH/MM3 Monocytes # (Auto) 1.0 TH/MM3 Eosinophils # (Auto) 0.0 TH/MM3 Basophils # (Auto) 0.0 TH/MM3 CBC Comment DIFF FINAL Differential Comment Laboratory Tests Test 02/28/17 05:35 03/01/17 03:50 03/01/17 15:27 Blood Urea Nitrogen 32 MG/DL 37 MG/DL 34 MG/DL Creatinine 2.14 MG/DL 2.10 MG/DL 1.83 MG/DL Random Glucose 220 MG/DL 162 MG/DL 126 MG/DL Total Protein 5.1 GM/DL 5.9 GM/DL 6.2 GM/DL Albumin 2.6 GM/DL 2.8 GM/DL 2.9 GM/DL Calcium Level 7.4 MG/DL 7.3 MG/DL 7.9 MG/DL Alkaline Phosphatase 46 U/L 56 U/L 67 U/L Aspartate Amino Transf (AST/SGOT) 363 U/L 244 U/L 190 U/L Alanine Aminotransferase (ALT/SGPT) 198 U/L 179 U/L 163 U/L Total Bilirubin 1.3 MG/DL 1.3 MG/DL 1.4 MG/DL Sodium Level 140 MEQ/L 139 MEQ/L 140 MEQ/L Potassium Level 4.2 MEQ/L 3.4 MEQ/L 3.5 MEQ/L Chloride Level 102 MEQ/L 100 MEQ/L 98 MEQ/L Carbon Dioxide Level 25.2 MEQ/L 27.5 MEQ/L 30.7 MEQ/L Anion Gap 13 MEQ/L 12 MEQ/L 11 MEQ/L Estimat Glomerular Filtration Rate 24 ML/MIN 24 ML/MIN 28 ML/MIN Protein Corrected Calcium 8.5 MG/DL 7.9 MG/DL Magnesium Level 1.7 MG/DL Microbiology Date/Time Source Procedure Growth Status 02/27/17 14:04 Blood Peripheral Aerobic Blood Culture - Preliminary NO GROWTH IN 2 DAYS Resulted 02/27/17 14:04 Blood Peripheral Anaerobic Blood Culture - Preliminary NO GROWTH IN 2 DAYS Resulted 02/27/17 13:59 Blood Peripheral Aerobic Blood Culture - Preliminary NO GROWTH IN 2 DAYS Resulted 02/27/17 13:59 Blood Peripheral Anaerobic Blood Culture - Preliminary NO GROWTH IN 2 DAYS Resulted 02/28/17 08:15 Sputum Endotracheal Gram Stain - Final Resulted 02/28/17 08:15 Sputum Endotracheal Sputum Culture - Preliminary NO GROWTH IN 24 HOURS. Resulted 02/28/17 08:35 Urine Catheterized Urine Urine Culture - Preliminary NO GROWTH IN 24 HOURS. Resulted Imaging Last Impressions Chest X-Ray 03/01/17 0600 Signed Impressions: Service Date/Time: Wednesday, March 01, 2017 03:22 - CONCLUSION: 1. Stable tubes and lines. 2. Cardiomegaly with positive fluid balance. 3. Stable left lower lung zone airspace disease and associated small pleural effusion. Sonu Esparza MD Angiography 02/27/17 1219 Signed Impressions: Service Date/Time: Monday, February 27, 2017 11:03 - CONCLUSION: No evidence of arterial injury and no findings to indicate site of bleeding to account for anterior abdominal wall hematoma. Savage Aranda MD Aorta CTA 02/26/17 0000 Signed Impressions: Service Date/Time: February 19:19 - CONCLUSION: 1. Large anterior abdominal wall hematoma. 2. No aortic dissection or aneurysm. 3. Changes involving the liver suggesting cirrhosis. 4. Cholelithiasis. 5. Bibasilar atelectasis. 6. Cardiomegaly. Kiet Camarena Jr., MD Neck CTA 02/22/17 0000 Signed Impressions: Service Date/Time: Wednesday, February 22, 2017 06:25 - CONCLUSION: 1. Prominent atherosclerotic disease at carotid bulbs resulting in approximately 70%% stenosis of the proximal right ICA at its origin and approximately 40-50%% stenosis of the proximal left ICA. 2. Moderate grade stenosis of the proximal left common carotid artery at its origin. Gurdeep Laird MD Head CTA 02/22/17 0000 Signed Impressions: Service Date/Time: Wednesday, February 22, 2017 06:25 - CONCLUSION: No evidence of proximal high-grade stenosis or occlusion. Gurdeep Laird MD Head CT 02/22/17 0000 Signed Impressions: Service Date/Time: Wednesday, February 22, 2017 06:25 - CONCLUSION: Normal examination for a patient of this age. No significant change has occurred. Billy Weems MD Physical Exam IN GENERAL: Physical exam this is a morbidly obese female who is on the ventilator. She is unresponsive. HEAD, EYES, EARS, NOSE, AND THROAT: Unable to assess. The patient is intubated on ventilator. The external buccal mucosa appears moist. NECK: No swelling or adenopathy. LUNGS: Clear decreased breath sounds throughout. HEART: Irregular rate and rhythm. No murmurs audible. ABDOMEN: Markedly distended. Firm. : lee in place with cloudy and slightlyy pink urine EXTREMITIES: No clubbing or improved cyanosys warm L foot + 2 + edema. SKIN: No diffuse rash. NEUROLOGIC: Sedated. Unrepsonsive PSYCHIATRIC: Unable to assess. Assessment & Plan Remarks IMPRESSION 1. Hemorrhagic shock. Patient with episode of hypotension and tachycardia and abdominal wall hematoma. 2. Leukocytosis - worse today clx are negative, though not final 3. Policystic kidney diseas kidney disease. The patient received contrast for radiographic study and also she was hypotensive and may have had also hypotensive insult to the kidney. 4. Multiple antibiotic allergies. 5. Acute VDRF - extubated, on BIPAP RECOMMENDATIONS 1. Continue vancomycin for now. 2. Continue the Tazobactam for now. 3. Monitor blood and urine cultures 4. Follow the white count and clinical status. 5. Marina Hart Dr, MD Mar 01, 2017 19:54
[2017-03-01] MEDS: ATORVASTATIN 40 MG TAB PO SCH (21:00)
[2017-03-01] MEDS: POTASSIUM CHLORIDE 20 MEQ CONTROLLED RELEASE TAB PO SCH (21:00)
[2017-03-01] MEDS: POTASSIUM CHLOR 40 MEQ PREMIX 100 ML IV SCH (22:45)
[2017-03-02] VITALS (17 sets, daily range): BP systolic 100–127; BP diastolic 58–83; PULSE 87–116; RESP 16–29; TEMP 97.5–97.9; O2SAT 88–97
[2017-03-02] MEDS: PIPERACIL-TAZO 3.375 GM PREMIX 50 ML IV SCH ×3 (00:29→16:05)
[2017-03-02] MEDS: SODIUM BICARBONATE 8.4% INJ 150 MEQ in DEXTROSE 5% IN WATE 1000ML INJ 1,000 ML IV SCH ×2 (01:00)
[2017-03-02] MEDS: POTASSIUM CHLOR 40 MEQ PREMIX 100 ML IV SCH (02:44)
[2017-03-02] MEDS: RESP: ALBUTEROL 2.5 MG/IPRATROPIUM 0.5 MG NEB (SCH) NEB ×6 (04:17→23:23)
[2017-03-02 04:43] LABS: AUTOMATED NEUTROPHIL # 16.1 TH/MM3 (1.8-7.7); BASOPHIL % 0.1 % (0.0-2.0); HEMATOCRIT 29.1 % (35.0-46.0); LYMPH % 1.9 % (9.0-44.0); LYMPHOCYTE # 0.3 TH/MM3 (1.0-4.8); MEAN CELL VOLUME 88.8 FL (80.0-100.0); MEAN CORPUSCULAR HEMOGLOBIN 30.5 PG (27.0-34.0); MEAN CORPUSCULAR HGB CONC 34.3 % (32.0-36.0); MEAN PLATELET VOLUME 7.9 FL (7.0-11.0); MONO % 4.9 % (0.0-8.0); MONOCYTE # 0.9 TH/MM3 (0-0.9); NEUT % 93.1 % (16.0-70.0); PLATELET COUNT 119 TH/MM3 (150-450); RED BLOOD COUNT 3.28 MIL/MM3 (4.00-5.30); RED CELL DISTRIBUTION WIDTH 16.3 % (11.6-17.2); WHITE BLOOD COUNT 17.3 TH/MM3 (4.0-11.0)
[2017-03-02 04:45] LABS: INTERNATIONAL NORMALIZED RATIO 1.1 RATIO; PROTHROMBIN TIME - PATIENT 11.1 SEC (9.8-11.6)
[2017-03-02 05:12] LABS: ALBUMIN 2.9 GM/DL (3.4-5.0); ALT (GPT) 145 U/L (10-53); AST (GOT) 138 U/L (15-37); BICARBONATE 30.7 MEQ/L (21.0-32.0); BLOOD UREA NITROGEN 36 MG/DL (7-18); CALCIUM 7.9 MG/DL (8.5-10.1); CHLORIDE 101 MEQ/L (98-107); CREATININE 1.61 MG/DL (0.50-1.00); GLOMERULAR FILTRATION RATE 33 ML/MIN (>89); GLUCOSE,RANDOM 106 MG/DL (74-106); SODIUM (NA) 140 MEQ/L (136-145)
[2017-03-02 05:15] LABS: ALKALINE PHOSPHATASE 74 U/L (45-117); TOTAL BILIRUBIN ADULT 1.5 MG/DL (0.2-1.0); TOTAL PROTEIN 6.5 GM/DL (6.4-8.2)
--- NOTE | 2017-03-02 05:39 | RADRPT ---
EXAM DATE/TIME: 03/02/2017 03:47 [facility] COMPARISON: CHEST SINGLE AP, February 28, 2017, 7:01. CHEST SINGLE AP, March 01, 2017, 3:22. INDICATIONS : Shortness of breath, possible pulmonary disease. MEDICAL HISTORY : Cardiovascular disease. Hypertension Chronic obstructive pulmonary disease. SURGICAL HISTORY : Pacemaker. CABG. ENCOUNTER: Subsequent ACUITY: 1 week PAIN SCORE: Non-responsive. LOCATION: Bilateral chest FINDINGS: Interval development of an ill-defined area of opacity in the right upper lung measuring 4 cm in size . Indistinctness and engorgement of the central and upper lobe bronchopulmonary markings similar to prior. There is persistent consolidation in the left lower lung with loss of delineation of the left hemidiaphragm. Cardiac pacer leads, sternal wire sutures, and O rings from CABG stable. CONCLUSION: There is no subsegmental consolidative infiltrate in the right upper lobe. Persistent left lower lob e consolidation. Kiet Rob MD on March 02, 2017 at 5:35 Board Certified Radiologist. This report was verified electronically.
[2017-03-02] MEDS: HYDROCORTISONE SOD SUCCINATE 100 MG VIAL IV SCH ×3 (06:47→21:03)
[2017-03-02] MEDS: LEVOTHYROXINE SODIUM 100 MCG VIAL IV PUSH SCH (06:48)
[2017-03-02] MEDS: ISOSORBIDE MONONITRATE 30 MG TAB PO SCH (06:48)
[2017-03-02] MEDS: INSULIN ASPART SUPPLEMENTAL SCALE SQ SCH ×4 (08:00→21:00)
[2017-03-02] MEDS ORDERED: FUROSEMIDE 40 MG/4 ML VIAL IV PUSH ONE (08:00)
[2017-03-02] MEDS: PANTOPRAZOLE SODIUM 40 MG VIAL IV PUSH SCH ×2 (08:00→20:00)
--- NOTE | 2017-03-02 08:13 | HHI.CCPN ---
Subjective Remarks/Hospital Course 61-year-old female with a past medical history significant for CAD status post CABG, atrial fibrillation, diabetes mellitus, polycystic kidney disease, CHF ( echo with EF of 55-60% in 2015), hypertension, hyperlipidemia and hypothyroidism presents to the emergency department complaining of dizziness and falling. Her CT of the neck show 70% occlusive disease off right carotid artery and she was planned to undergo right carotid endarterectomy. Further vascular procedures she underwent elective cardiac catheterization that shows patent vessels without significant obstructive disease. Shortly after procedure patient developed severe hypotension and tachycardia with systolic blood pressure at 60s and significant decrease in hemoglobin. She was taken emergently to CT of the abdomen/aorta runoff, the didn't show any dissection or aneurysm however shows large hematoma of abdominal wall. SUBJ 02/27: Remains in profound shock. ON Levophed 20, Jaron 100, Vasopressin 0.04. Received total of 8 units of PRBC, 4 units of FFP to pack units of platelets and 2 cryo. Hb after 5U PRBC was 8.7 at 3 am. Discussed with vascular surgery Dr. Oliva re possible surgical intervention. Patient is also on chronic steroids prednisone 5 mg twice a day (for RA trial per patient). I will give 200 mg IV hydrocortisone STAT followed by 100 mg every 8 hours. Also change Synthroid to 75 g IV daily. Pain improved with Dilaudid. Will place on PRN Dilaudid. UO 400 ml overnight. Check bladder pressure 02/28: Remains intubated critically ill FiO2 at 60%. Remains on Jaron-Synephrine at 30 mcg/m, vasopressin at 0.04 international units per minute. Receive 2 units of PRBC for hemoglobin of 7.6 overnight. Today 9.3. Creatinine has increased to 2.14. Urine output 575 mg in 24 hours. 03/01: Remains critically ill on vasopressin. Received 2 units of PRBC for hemoglobin 7.6. Urine output increased with diuretics. 1.5 L in 24 hours, creatinine stable to slightly improved. Given Lasix 80 mg IV 1 now with potassium replacement. Start weaning trials again 03/02: Extubated yesterday but required BiPAP overnight. Becomes hypoxic and short of breath when BiPAP was weaned. Hemodynamically improved remains on 0.01 vasopressin. Hb 10. Urine output 3 L with Lasix creatinine improved to 1.6. Significant positive fluid balance. Lasix increased Objective Vital Signs Date Time Temp Pulse Resp B/P (MAP) Pulse Ox O2 Delivery O2 Flow Rate FiO2 03/02/17 07:44 97.5 87 21 108/65 (79) 95 Automatic Cuff 03/02/17 07:37 45 03/02/17 07:36 Bi-Pap 03/01/17 15:00 6.00 Intake and Output 03/02/17 03/02/17 03/03/17 08:00 16:00 00:00 Intake Total 300 ml Output Total 1200 ml Balance -900 ml Result Diagram: 03/02/17 0415 03/02/17 0415 Other Results Microbiology Date/Time Source Procedure Growth Status 02/28/17 08:35 Urine Catheterized Urine Urine Culture - Final NO GROWTH IN 48 HOURS. Complete Laboratory Tests Test 03/01/17 12:18 Blood Gas Puncture Site ART LINE Blood Gas Patient Temperature 98.6 Blood Gas HCO3 28 mmol/L (22-26) Blood Gas Base Excess 4.7 mmol/L (-2-2) Blood Gas Oxygen Saturation 92 % (90-100) Arterial Blood pH 7.49 (7.380-7.420) Arterial Blood Partial Pressure CO2 38 mmHg (38-42) Arterial Blood Partial Pressure O2 69 mmHg (61-120) Arterial Blood Oxygen Content 14.2 Vol % (12.0-20.0) Arterial Blood Carboxyhemoglobin 1.1 % (0-4) Arterial Blood Methemoglobin 1.3 % (0-2) Blood Gas Hemoglobin 10.9 G/DL (12.0-16.0) Oxygen Delivery Device VENTILATOR Blood Gas Ventilator Setting CPAP 5/8PS Blood Gas Inspired Oxygen 45 % Imaging Last 24 hours Impressions Chest X-Ray 02/26/17 1812 Signed Impressions: Service Date/Time: February 18:12 - CONCLUSION: Stable exam with cardiomegaly and left basilar atelectasis. Kiet Camarena Jr., MD Aorta CTA 02/26/17 0000 Signed Impressions: Service Date/Time: February 19:19 - CONCLUSION: 1. Large anterior abdominal wall hematoma. 2. No aortic dissection or aneurysm. 3. Changes involving the liver suggesting cirrhosis. 4. Cholelithiasis. 5. Bibasilar atelectasis. 6. Cardiomegaly. Kiet Camarena Jr., MD Objective Remarks GENERAL: Morbidly obese patient. On BiPAP, critically ill, or respiratory distress SKIN: Warm and dry. Ecchymosis lower abdomen HEAD: Normocephalic. ENT: BiPAP mask in place NECK: Supple, trachea midline. No JVD or lymphadenopathy. CARDIOVASCULAR: Atrial fibrillation rate controlled. Heart sounds are distant. On Amiodarone gtt RESPIRATORY: Breath sounds equal bilaterally. On BiPAP, bilateral wheezing predominantly right upper lung aguilar GASTROINTESTINAL: Abdomen distended tender to palpation in the lower abdomen. Ecchymosis lower abdomen MUSCULOSKELETAL: No cyanosis, or edema. : Ferguson in place with tea colored urine NEURO EXAM: Alert awake oriented. Follows commands. No focal deficits A/P Assessment and Plan Neuro: TIA - Minimize sedation. - Dilaudid and oxycodone when necessary for pain control - Daily sedation vacation - Previously planned CEA postponed indefinitely CVA/Heme: Hemorrhagic shock-resolving Large anterior abdominal wall/rectus sheath hematoma s/p cardiac catheterization Atrial fibrillation with RVR - Status post approximately 14 units PRBC, 4 units of FFP, 2 units of platelets , 2 cryo, including 2 units of PRBC last night - monitor hemoglobin, coags - Anterior abdominal wall hematoma on CTA. Discussed with vascular surgery Dr. Oliva, Dr. Whitley and Dr. Encarnacion. No active leak - Significant fluid positive. Increase lasix to 40 q8, additional 40 mg now. - At home On chronic prednisone 5 mg twice a day. Continue stress dose steroids 100 every 8 - Synthroid to IV 75 g daily - Monitor H&H and transfuse for hemoglobin less than 8 - Currently on vasopressin, wean to DC - Rate controlled, now NSR, On amiodarone IV and received single dose of digoxin - Hold anticoagulation due to blood loss. Hold all antiplatelet therapy - Surgical intervention and evacuation of hematoma indicated if uncontrolled bleeding Resp: Acute hypoxemic respiratory failure Acute COPD exacerbation Probable healthcare associated pneumonia - Intubated by anesthesia for angiography but now with hypoxemic respiratory failure - Extubated yesterday but requiring BiPAP - Increase DuoNeb every 4 hours and when necessary - Add Symbicort and Spiriva. Receiving steroids as hydrocortisone GI: Transaminitis - Keep nothing by mouth, until stable respiratory fofana IV Protonix - Abdominal wall hematoma management as above - Elevated liver enzymes secondary to shock-now improving : Acute on chronic kidney failure - Acute kidney failure secondary to ATN - Previously on Bumex continue forced diuresis with IV Lasix as above ID Probable healthcare associated pneumonia - Continue Zosyn per ID. Zyvox DCd Endo: - Continue IV Synthroid DVT GI prophylaxis - Teds/SCDs - Hold pharmacological DVT prophylaxis due to acute blood loss - PPI Critical Care: The total critical care time was 35 minutes. Time to perform other separately billable procedures was not included in the critical care time. Remains critically ill with with hypoxemic respiratory failure Padmaja Wan MD Mar 02, 2017 08:13
[2017-03-02] MEDS: BUDESONIDE-FORMOTEROL 160/4.5 MCG INHALER INH SCH ×2 (09:00→21:00)
[2017-03-02] MEDS: TIOTROPIUM BROMIDE 18 MCG INH INH SCH (09:00)
[2017-03-02] MEDS: VENLAFAXINE HCL XR 75 MG CAP PO SCH (09:06)
[2017-03-02] MEDS: SODIUM CHLORIDE 0.9% FLUSH 10 ML FLUSH IV FLUSH SCH ×2 (09:06→21:00)
[2017-03-02] MEDS: POTASSIUM CHLORIDE 20 MEQ CONTROLLED RELEASE TAB PO SCH ×2 (09:06→21:00)
[2017-03-02] MEDS: FUROSEMIDE 40 MG/4 ML VIAL IV PUSH SCH ×2 (10:07→18:09)
--- NOTE | 2017-03-02 11:04 | HHI.IDPN ---
Note Infectious Disease Note Patient presented to [place] emergency department on 02/22 with generalized weakness. The patient reportedly was having problems with dizziness. Patient was extubated yesterday and is now on 90% O2 via NRM. She is using accessory muscle and breathing is labored. Opens eyes to voice. Afebrile. Good urine output. Sputum culture pending. PAST MEDICAL HISTORY: 1. hypertension 2. Hyperlipidemia 3. polycystic kidney disease 4. Hypothyroidism 5. coronary artery disease 6. history of coronary bypass graft surgery 7. atrial fibrillation status post ablation times four 8. AICD placement 9. Tonsillectomy 10. bilateral tubal ligation 11. Arthritis ALLERGIES VANCOMYCIN LEVAQUIN ERYTHROMYCIN AZITHROMYCIN CYCLOSPORIN MRI precaution. MEDICATIONS Current Medications Medications (Trade) Dose Ordered Sig/Alexa Route PRN Reason Start Time Stop Time Status Last Admin Dose Admin Aspirin (Aspirin) 325 mg DAILY PO 02/23/17 09:00 Future Hold 02/25/17 08:24 Insulin Aspart (NovoLOG SUPPLEMENTAL SCALE) 1 ACHS SQ 02/22/17 12:00 02/28/17 22:00 Dextrose (D50w (Vial) Inj) 50 ml UNSCH PRN IV PUSH HYPOGLYCEMIA-SEE COMMENTS 02/22/17 09:45 Glucagon (Glucagon Inj) 1 mg UNSCH PRN OTHER HYPOGLYCEMIA-SEE COMMENTS 02/22/17 09:45 Amiodarone HCl (Cordarone) 200 mg DAILY PO 02/23/17 09:00 Future Hold 02/26/17 09:19 Atorvastatin Calcium (Lipitor) 40 mg HS PO 02/22/17 21:00 02/28/17 21:39 Bumetanide (Bumetanide) 1 mg DAILY PO 02/23/17 09:00 Future Hold Isosorbide Mononitrate (Imdur) 30 mg DAILY@0700 PO 02/23/17 07:00 02/26/17 09:19 Levothyroxine Sodium (Synthroid) 200 mcg DAILY@0600 PO 02/23/17 06:00 Future Hold 03/01/17 06:15 Metoprolol Tartrate (Lopressor) 50 mg BID PO 02/22/17 21:00 Future Hold 02/26/17 09:18 Sacubitril/ Valsartan (Entresto 97-103 Mg) 1 tab BID PO 02/22/17 21:00 Future Hold 02/22/17 21:16 Spironolactone (Aldactone) 12.5 mg DAILY PO 02/23/17 09:00 Future Hold Venlafaxine HCl (Effexor Xr) 75 mg DAILY PO 02/23/17 09:00 03/02/17 09:06 Miscellaneous (Pill Splitter) 1 ea UNSCH PRN OTHER SEE LABEL COMMENTS 02/22/17 11:00 Acetaminophen/ Hydrocodone Bitart (Norlina 5-325 Mg) 1 tab Q6H PRN PO PAIN 1-5 02/22/17 13:00 02/26/17 16:03 Prednisone (Deltasone) 5 mg BID PO 02/22/17 21:00 Future Hold 02/26/17 09:19 Sodium Chloride (NS Flush) 2 ml BID IV FLUSH 02/26/17 21:00 03/02/17 09:06 Sodium Chloride (NS Flush) 2 ml UNSCH PRN IV FLUSH FLUSH AFTER USING IV ACCESS 02/26/17 16:15 Terbutaline Sulfate (Brethine Inj) 1 mg UNSCH PRN SQ For Extravasation 02/26/17 22:00 Ondansetron HCl (Zofran Inj) 4 mg Q4H PRN IV PUSH NAUSEA OR VOMITING 02/26/17 23:00 Terbutaline Sulfate (Brethine Inj) 1 mg UNSCH PRN SQ FOR EXTRAVASATION PROTOCOL 02/27/17 00:15 Hydrocortisone Sodium Succinate (SoluCORTEF INJ) 100 mg Q8HR IV 02/27/17 14:00 03/02/17 06:47 Pantoprazole Sodium (Protonix Inj) 40 mg Q12H IV PUSH 02/27/17 08:00 03/02/17 08:00 Levothyroxine Sodium (Synthroid Inj) 75 mcg DAILY@06 IV PUSH 02/27/17 07:30 03/02/17 06:48 Hydromorphone HCl (Dilaudid Pf Inj) 1 mg Q3H PRN IV PUSH Pain 6-10 02/27/17 07:15 Lorazepam (Ativan Inj) 0.5 mg Q2H PRN IV PUSH anxiety 02/27/17 07:15 Amiodarone HCl 450 mg/Sodium Chloride 250 ml @ 33.33 mls/ hr Q7H31M PRN IV Per Protocol 02/27/17 15:45 03/01/17 20:33 Piperacillin Sod/ Tazobactam Sod 50 ml @ 100 mls/hr Q8H IV 02/28/17 08:00 03/02/17 08:24 Potassium Chloride (KCl) 20 meq Q12HR PO 03/01/17 21:00 03/02/17 09:06 Albuterol/ Ipratropium (Duoneb Neb) 1 ampule Q4HR NEB NEB 03/02/17 12:00 Furosemide (Lasix Inj) 40 mg Q8H IV PUSH 03/02/17 10:00 03/02/17 10:07 Albuterol/ Ipratropium (Duoneb Neb) 1 ampule Q2HR NEB PRN NEB SHORTNESS OF BREATH 03/02/17 08:15 Budesonide/ Formoterol Fumarate (Symbicort 160-4.5 Mcg Inh) 2 puff Q12HR INH 03/02/17 09:00 Tiotropium [place] (Spiriva Inh) 18 mcg DAILY INH 03/02/17 09:00 OBJECTIVE: Vital Signs Date Time Temp Pulse Resp B/P (MAP) Pulse Ox O2 Delivery O2 Flow Rate FiO2 03/02/17 08:09 97 Non-Rebreather 15.00 100 03/02/17 07:44 97.5 87 21 108/65 (79) 95 Automatic Cuff 03/02/17 07:41 87 03/02/17 07:37 95 45 03/02/17 07:36 95 Bi-Pap 45 03/02/17 04:10 92 45 03/02/17 03:00 97.9 101 23 124/71 (88) 97 100/58 (72) 03/02/17 03:00 94 Bi-Pap 45 03/02/17 03:00 101 03/02/17 01:05 90 45 03/01/17 23:00 97 Bi-Pap 45 03/01/17 23:00 98.8 89 22 113/71 (85) 95 103/61 (75) 03/01/17 23:00 89 03/01/17 21:54 95 45 03/01/17 20:33 105 104/61 03/01/17 20:33 108 104/62 03/01/17 19:44 96 50 03/01/17 19:00 110 03/01/17 19:00 98.4 110 24 104/60 (75) 97 102/63 (76) 03/01/17 19:00 97 Bi-Pap 55 03/01/17 17:47 90 50 03/01/17 16:29 20 03/01/17 15:00 94 03/01/17 15:00 98.1 94 16 114/79 (91) 92 104/64 (77) 03/01/17 15:00 91 Nasal Cannula 6.00 03/01/17 13:56 90 Venturi Mask 50 03/01/17 13:56 90 Nasal Cannula 6 03/01/17 13:45 90 Nasal Cannula 6.00 03/01/17 11:49 92 45 03/01/17 11:00 97 03/01/17 11:00 94 Mechanical Ventilator 45 03/01/17 11:00 45 03/01/17 11:00 98.1 97 16 141/55 (83) 93 108/64 (79) Laboratory Tests Test 02/28/17 14:12 02/28/17 18:15 02/28/17 22:10 03/01/17 03:50 White Blood Count 14.3 TH/MM3 15.1 TH/MM3 Red Blood Count 2.96 MIL/MM3 3.23 MIL/MM3 Hemoglobin 8.8 GM/DL 7.9 GM/DL 7.6 GM/DL 9.6 GM/DL Hematocrit 25.1 % 27.9 % Mean Corpuscular Volume 84.8 FL 86.3 FL Mean Corpuscular Hemoglobin 29.8 PG 29.9 PG Mean Corpuscular Hemoglobin Concent 35.1 % 34.6 % Red Cell Distribution Width 16.4 % 15.9 % Platelet Count 105 TH/MM3 90 TH/MM3 Mean Platelet Volume 8.2 FL 8.0 FL Neutrophils (%) (Auto) 85.1 % 89.8 % Lymphocytes (%) (Auto) 6.5 % 3.0 % Monocytes (%) (Auto) 8.3 % 7.1 % Eosinophils (%) (Auto) 0.0 % 0.0 % Basophils (%) (Auto) 0.1 % 0.1 % Neutrophils # (Auto) 12.2 TH/MM3 13.5 TH/MM3 Lymphocytes # (Auto) 0.9 TH/MM3 0.5 TH/MM3 Monocytes # (Auto) 1.2 TH/MM3 1.1 TH/MM3 Eosinophils # (Auto) 0.0 TH/MM3 0.0 TH/MM3 Basophils # (Auto) 0.0 TH/MM3 0.0 TH/MM3 CBC Comment AUTO DIFF AUTO DIFF Differential Comment FINAL DIFF MANUAL Differential Total Cells Counted 100 Neutrophils % (Manual) 71 % Band Neutrophils % 19 % Lymphocytes % 2 % Monocytes % 7 % Eosinophils % 1 % Neutrophils # (Manual) 13.6 TH/MM3 Nucleated Red Blood Cells 1 /100 WBC Platelet Estimate LOW Platelet Morphology Comment NORMAL Test 03/01/17 15:27 03/02/17 04:15 White Blood Count 16.9 TH/MM3 17.3 TH/MM3 Red Blood Count 3.37 MIL/MM3 3.28 MIL/MM3 Hemoglobin 10.0 GM/DL 10.0 GM/DL Hematocrit 29.3 % 29.1 % Mean Corpuscular Volume 87.1 FL 88.8 FL Mean Corpuscular Hemoglobin 29.7 PG 30.5 PG Mean Corpuscular Hemoglobin Concent 34.1 % 34.3 % Red Cell Distribution Width 16.0 % 16.3 % Platelet Count 107 TH/MM3 119 TH/MM3 Mean Platelet Volume 7.9 FL 7.9 FL Neutrophils (%) (Auto) 91.8 % 93.1 % Lymphocytes (%) (Auto) 2.1 % 1.9 % Monocytes (%) (Auto) 6.0 % 4.9 % Eosinophils (%) (Auto) 0.0 % 0.0 % Basophils (%) (Auto) 0.1 % 0.1 % Neutrophils # (Auto) 15.5 TH/MM3 16.1 TH/MM3 Lymphocytes # (Auto) 0.4 TH/MM3 0.3 TH/MM3 Monocytes # (Auto) 1.0 TH/MM3 0.9 TH/MM3 Eosinophils # (Auto) 0.0 TH/MM3 0.0 TH/MM3 Basophils # (Auto) 0.0 TH/MM3 0.0 TH/MM3 CBC Comment DIFF FINAL DIFF FINAL Differential Comment Laboratory Tests Test 03/01/17 03:50 03/01/17 15:27 03/02/17 04:15 Blood Urea Nitrogen 37 MG/DL 34 MG/DL 36 MG/DL Creatinine 2.10 MG/DL 1.83 MG/DL 1.61 MG/DL Random Glucose 162 MG/DL 126 MG/DL 106 MG/DL Total Protein 5.9 GM/DL 6.2 GM/DL 6.5 GM/DL Albumin 2.8 GM/DL 2.9 GM/DL 2.9 GM/DL Calcium Level 7.3 MG/DL 7.9 MG/DL 7.9 MG/DL Magnesium Level 1.7 MG/DL 2.0 MG/DL Alkaline Phosphatase 56 U/L 67 U/L 74 U/L Aspartate Amino Transf (AST/SGOT) 244 U/L 190 U/L 138 U/L Alanine Aminotransferase (ALT/SGPT) 179 U/L 163 U/L 145 U/L Total Bilirubin 1.3 MG/DL 1.4 MG/DL 1.5 MG/DL Sodium Level 139 MEQ/L 140 MEQ/L 140 MEQ/L Potassium Level 3.4 MEQ/L 3.5 MEQ/L 4.2 MEQ/L Chloride Level 100 MEQ/L 98 MEQ/L 101 MEQ/L Carbon Dioxide Level 27.5 MEQ/L 30.7 MEQ/L 30.7 MEQ/L Anion Gap 12 MEQ/L 11 MEQ/L 8 MEQ/L Estimat Glomerular Filtration Rate 24 ML/MIN 28 ML/MIN 33 ML/MIN Protein Corrected Calcium 7.9 MG/DL Microbiology Date/Time Source Procedure Growth Status 02/27/17 14:04 Blood Peripheral Aerobic Blood Culture - Preliminary NO GROWTH IN 2 DAYS Resulted 02/27/17 14:04 Blood Peripheral Anaerobic Blood Culture - Preliminary NO GROWTH IN 2 DAYS Resulted 02/27/17 13:59 Blood Peripheral Aerobic Blood Culture - Preliminary NO GROWTH IN 2 DAYS Resulted 02/27/17 13:59 Blood Peripheral Anaerobic Blood Culture - Preliminary NO GROWTH IN 2 DAYS Resulted 03/02/17 09:15 Sputum Expectorated Sputum Gram Stain Pending Received 03/02/17 09:15 Sputum Expectorated Sputum Sputum Culture Pending Received 02/28/17 08:15 Sputum Endotracheal Gram Stain - Final Resulted 02/28/17 08:15 Sputum Endotracheal Sputum Culture - Preliminary NO GROWTH IN 24 HOURS. Resulted 02/28/17 08:35 Urine Catheterized Urine Urine Culture - Final NO GROWTH IN 48 HOURS. Complete IMAGING: Chest X-Ray 03/02/17 0600 Signed Impressions: Service Date/Time: Thursday, March 02, 2017 03:47 - CONCLUSION: There is no subsegmental consolidative infiltrate in the right upper lobe. Persistent left lower lobe consolidation. Kiet Rob MD Angiography 02/27/17 1219 Signed Impressions: Service Date/Time: Monday, February 27, 2017 11:03 - CONCLUSION: No evidence of arterial injury and no findings to indicate site of bleeding to account for anterior abdominal wall hematoma. Savage Aranda MD Aorta CTA 02/26/17 0000 Signed Impressions: Service Date/Time: February 19:19 - CONCLUSION: 1. Large anterior abdominal wall hematoma. 2. No aortic dissection or aneurysm. 3. Changes involving the liver suggesting cirrhosis. 4. Cholelithiasis. 5. Bibasilar atelectasis. 6. Cardiomegaly. Kiet Camarena Jr., MD Neck CTA 02/22/17 0000 Signed Impressions: Service Date/Time: Wednesday, February 22, 2017 06:25 - CONCLUSION: 1. Prominent atherosclerotic disease at carotid bulbs resulting in approximately 70%% stenosis of the proximal right ICA at its origin and approximately 40-50%% stenosis of the proximal left ICA. 2. Moderate grade stenosis of the proximal left common carotid artery at its origin. Gurdeep Laird MD Head CTA 02/22/17 0000 Signed Impressions: Service Date/Time: Wednesday, February 22, 2017 06:25 - CONCLUSION: No evidence of proximal high-grade stenosis or occlusion. Gurdeep Laird MD Head CT 02/22/17 0000 Signed Impressions: Service Date/Time: Wednesday, February 22, 2017 06:25 - CONCLUSION: Normal examination for a patient of this age. No significant change has occurred. Billy Weems MD PHYSICAL EXAMINATION: IN GENERAL: Patient currently has labored respirations. HEAD, EYES, EARS, NOSE, AND THROAT: Moist mucosa. NECK: No swelling or adenopathy. LUNGS: Bilateral rhonchi R > L. HEART: Irregular rate and rhythm. No murmurs audible. ABDOMEN: Markedly distended. Soft, non tender. EXTREMITIES: No clubbing or cyanosis or edema. SKIN: No diffuse rash. NEUROLOGIC: Unable to assess PSYCHIATRIC: Unable to assess. IMPRESSION 1. Hemorrhagic shock. Patient developed hypotension and tachycardia and abdominal wall hematoma. 2. Leukocytosis. 3. Acute kidney disease. The patient received contrast for radiographic study and also she was hypotensive and may have had also hypotensive insult to the kidney. 4. Lung infiltrate. ? VAP. 5. Multiple antibiotic allergies. RECOMMENDATIONS 1. Continue piperacillin/tazobactam. 2. Monitor the sputum culture. 3. Follow the white count. 4. monitor clinical status and clinical status. Antonio Tobar MD Mar 02, 2017 11:04
[2017-03-02] MEDS: AMIODARONE INJ 450 MG in SODIUM CHLOR 0.9% (EXCEL) INJ 241 ML IV PRN (11:45)
--- NOTE | 2017-03-02 12:13 | HHI.CCPN ---
Subjective Brief History The lady certainly presented with symptoms that are reminiscent of a TIA, but the side of stenosis does not quite resemble the symptoms. However, it is hard to tell with this patient. Ultrasound and CT of the carotids is consistent with about 70% right internal carotid artery stenosis, about 50% left. There are other studies pending. At this point, it is quite hard to tell if the symptoms were due to the carotid stenosis or maybe cardiac event. The patient is on Coumadin for apparently DVT , not previous A. Fib so we will see how she does in the next few days and then decide on further course of therapy. There is definitely no acute stroke. The dictum is that patients with a 70% carotid artery stenosis even if asymptomatic should be considered for carotid endarterectomy for risk of stroke is high and is about 8-12% a year. This patient is symptomatic, but it is quite unclear whether the symptoms are really from the carotid. underwent yesterday cardiac catheterization which was a technically difficult apparently and developed a large anterior abdominal wall hematoma from the same She dropped her pressure and developed hemorrhagic shock. Was resuscitated and placed and surgical ICU At this point clearly surgery will not be performed Patient will be off Coumadin and will go from there 24 Hour Review/Hospital Course 02/27/17 Is noted the patient developed hemorrhagic shock yesterday evening and displayed large anterior abdominal wall hematoma This is now resolving and patient is hemodynamically stable Clearly any carotid surgery is now the question and this will be rescheduled at some later date as an outpatient Whether patient will need any surgical intervention on her vessel is questionable at this time but there is no blush that would indicate continuous bleeding Patient underwent successful arteriogram in Endo suite yet no clear source of bleeding was found The CT of the abdomen clearly reveals hemoglobin level in the collection so this is consistent with probably 8 or 9 units of blood Right now this is a contained space and it will tamponade off as long as it stays intraperitoneal area. If this would rupture intraperitoneally then of course patient would require surgical evacuation of this emergently In the best case scenario would keep hemoglobin up and this is going to stop on its own and then when all things are done we can always evacuate this collection later On the other hand if she continues to bleed surgery is always an option 02/28/17 Patient intubated and ventilated Remains on propofol sedation Hemoglobin has somewhat stabilized although patient did receive another 2 units of blood for a 2 g drop. At this point there is no active bleeding and this is simply recalibration of intravascular volume and hemodilution due to third space mobilization Will not do anything surgically at this point yet in next few days when the whole thing stabilizes and patient is doing better we will have to surgically evacuate this hematoma but looks otherwise this is going to get infected considering the huge mass of blood in the properitoneal space 03/02/17 Patient has improved significantly She is extubated on BiPAP mask at this time Abdomen is soft active bowel sounds and firmness in the lower abdomen is due to large preperitoneal hematoma Patient is holding her hemoglobin and bleeding has obviously stopped There is no way to leave this hematoma in the tissues fourth will clearly get infected due to the huge mass of protein IE blood. Patient remains on amiodarone drip. We'll give few days for patient to recover but she will have to go for washout and evacuation of this large collection Will take patient Thursday or to operating room for evacuation and washout of the preperitoneal hematoma Objective Vital Signs Date Time Temp Pulse Resp B/P (MAP) Pulse Ox O2 Delivery O2 Flow Rate FiO2 03/02/17 11:45 108 115/72 03/02/17 11:04 88 Bi-Pap 55 03/02/17 11:01 97.8 29 03/02/17 08:09 15.00 Intake and Output 03/02/17 03/02/17 03/03/17 08:00 16:00 00:00 Intake Total 300 ml 355 ml Output Total 1200 ml Balance -900 ml 355 ml Result Diagram: 03/02/17 0415 03/02/17 0415 Other Results Microbiology Date/Time Source Procedure Growth Status 02/28/17 08:15 Sputum Endotracheal Gram Stain - Final Complete 02/28/17 08:15 Sputum Endotracheal Sputum Culture - Final LIGHT GROWTH NORMAL RESPIRATORY NINA Complete 02/28/17 08:35 Urine Catheterized Urine Urine Culture - Final NO GROWTH IN 48 HOURS. Complete Laboratory Tests Test 03/01/17 12:18 Blood Gas Puncture Site ART LINE Blood Gas Patient Temperature 98.6 Blood Gas HCO3 28 mmol/L (22-26) Blood Gas Base Excess 4.7 mmol/L (-2-2) Blood Gas Oxygen Saturation 92 % (90-100) Arterial Blood pH 7.49 (7.380-7.420) Arterial Blood Partial Pressure CO2 38 mmHg (38-42) Arterial Blood Partial Pressure O2 69 mmHg (61-120) Arterial Blood Oxygen Content 14.2 Vol % (12.0-20.0) Arterial Blood Carboxyhemoglobin 1.1 % (0-4) Arterial Blood Methemoglobin 1.3 % (0-2) Blood Gas Hemoglobin 10.9 G/DL (12.0-16.0) Oxygen Delivery Device VENTILATOR Blood Gas Ventilator Setting CPAP 5/8PS Blood Gas Inspired Oxygen 45 % Imaging Last 24 hours Impressions Chest X-Ray 03/02/17 0600 Signed Impressions: Service Date/Time: Thursday, March 02, 2017 03:47 - CONCLUSION: There is no subsegmental consolidative infiltrate in the right upper lobe. Persistent left lower lobe consolidation. MD Ottoniel Solorio Slobodan MD Mar 02, 2017 12:13
--- NOTE | 2017-03-02 13:30 | PD.CARD.PN ---
Subjective Subjective Remarks extubated, in nad Objective Medications Current Medications Medications (Trade) Dose Ordered Sig/Alexa Route Start Time Stop Time Status Last Admin (Aspirin) 325 mg DAILY PO 02/23/17 09:00 Future Hold 02/25/17 08:24 (NovoLOG SUPPLEMENTAL SCALE) 1 ACHS SQ 02/22/17 12:00 02/28/17 22:00 (D50w (Vial) Inj) 50 ml UNSCH PRN IV PUSH 02/22/17 09:45 (Glucagon Inj) 1 mg UNSCH PRN OTHER 02/22/17 09:45 (Cordarone) 200 mg DAILY PO 02/23/17 09:00 Future Hold 02/26/17 09:19 (Lipitor) 40 mg HS PO 02/22/17 21:00 02/28/17 21:39 (Bumetanide) 1 mg DAILY PO 02/23/17 09:00 Future Hold (Imdur) 30 mg DAILY@0700 PO 02/23/17 07:00 02/26/17 09:19 (Synthroid) 200 mcg DAILY@0600 PO 02/23/17 06:00 Future Hold 03/01/17 06:15 (Lopressor) 50 mg BID PO 02/22/17 21:00 Future Hold 02/26/17 09:18 (Entresto 97-103 Mg) 1 tab BID PO 02/22/17 21:00 Future Hold 02/22/17 21:16 (Aldactone) 12.5 mg DAILY PO 02/23/17 09:00 Future Hold (Effexor Xr) 75 mg DAILY PO 02/23/17 09:00 03/02/17 09:06 (Pill Splitter) 1 ea UNSCH PRN OTHER 02/22/17 11:00 (Thorndike 5-325 Mg) 1 tab Q6H PRN PO 02/22/17 13:00 02/26/17 16:03 (Deltasone) 5 mg BID PO 02/22/17 21:00 Future Hold 02/26/17 09:19 (NS Flush) 2 ml BID IV FLUSH 02/26/17 21:00 03/02/17 09:06 (NS Flush) 2 ml UNSCH PRN IV FLUSH 02/26/17 16:15 (Brethine Inj) 1 mg UNSCH PRN SQ 02/26/17 22:00 (Zofran Inj) 4 mg Q4H PRN IV PUSH 02/26/17 23:00 (Brethine Inj) 1 mg UNSCH PRN SQ 02/27/17 00:15 (SoluCORTEF INJ) 100 mg Q8HR IV 02/27/17 14:00 03/02/17 06:47 (Protonix Inj) 40 mg Q12H IV PUSH 02/27/17 08:00 03/02/17 08:00 (Synthroid Inj) 75 mcg DAILY@06 IV PUSH 02/27/17 07:30 03/02/17 06:48 (Dilaudid Pf Inj) 1 mg Q3H PRN IV PUSH 02/27/17 07:15 (Ativan Inj) 0.5 mg Q2H PRN IV PUSH 02/27/17 07:15 Amiodarone HCl 450 mg/Sodium Chloride 250 ml @ 33.33 mls/ hr Q7H31M PRN IV 02/27/17 15:45 03/02/17 11:45 Piperacillin Sod/ Tazobactam Sod 50 ml @ 100 mls/hr Q8H IV 02/28/17 08:00 03/02/17 08:24 (KCl) 20 meq Q12HR PO 03/01/17 21:00 03/02/17 09:06 (Duoneb Neb) 1 ampule Q4HR NEB NEB 03/02/17 12:00 (Lasix Inj) 40 mg Q8H IV PUSH 03/02/17 10:00 03/02/17 10:07 (Duoneb Neb) 1 ampule Q2HR NEB PRN NEB 03/02/17 08:15 (Symbicort 160-4.5 Mcg Inh) 2 puff Q12HR INH 03/02/17 09:00 (Spiriva Inh) 18 mcg DAILY INH 03/02/17 09:00 Vital Signs / I&O Vital Signs Date Time Temp Pulse Resp B/P (MAP) Pulse Ox O2 Delivery O2 Flow Rate FiO2 03/02/17 13:01 97 50 03/02/17 11:45 108 115/72 03/02/17 11:04 88 Bi-Pap 55 03/02/17 11:03 116 03/02/17 11:01 97.8 116 29 120/71 (87) 91 03/02/17 10:51 88 55 03/02/17 08:09 97 Non-Rebreather 15.00 100 03/02/17 07:44 97.5 87 21 108/65 (79) 95 Automatic Cuff 03/02/17 07:41 87 03/02/17 07:37 95 45 03/02/17 07:36 95 Bi-Pap 45 03/02/17 04:10 92 45 03/02/17 03:00 97.9 101 23 124/71 (88) 97 100/58 (72) 03/02/17 03:00 94 Bi-Pap 45 03/02/17 03:00 101 03/02/17 01:05 90 45 03/01/17 23:00 97 Bi-Pap 45 03/01/17 23:00 98.8 89 22 113/71 (85) 95 103/61 (75) 03/01/17 23:00 89 03/01/17 21:54 95 45 03/01/17 20:33 105 104/61 03/01/17 20:33 108 104/62 03/01/17 19:44 96 50 03/01/17 19:00 110 03/01/17 19:00 98.4 110 24 104/60 (75) 97 102/63 (76) 03/01/17 19:00 97 Bi-Pap 55 03/01/17 17:47 90 50 03/01/17 16:29 20 03/01/17 15:00 94 03/01/17 15:00 98.1 94 16 114/79 (91) 92 104/64 (77) 03/01/17 15:00 91 Nasal Cannula 6.00 03/01/17 13:56 90 Venturi Mask 50 03/01/17 13:56 90 Nasal Cannula 6 03/01/17 13:45 90 Nasal Cannula 6.00 I/O 03/01/17 03/01/17 03/01/17 03/02/17 03/02/17 03/02/17 07:00 15:00 23:00 07:00 15:00 23:00 Intake Total 4333 ml 200 ml 300 ml 355 ml Output Total 1200 ml 2085 ml 1200 ml Balance 3133 ml 200 ml -2085 ml -900 ml 355 ml Intake Oral 0 ml IV Total 3413 ml 200 ml 300 ml 355 ml Packed Cells 800 ml Blood Product IV Normal Saline Flush 120 ml Output Urine Total 1100 ml 2085 ml 1200 ml Gastric Drainage Total 100 ml # Bowel Movements 1 1 1 Physical Exam GENERAL: SKIN: Warm and dry. HEAD: Normocephalic. EYES: No scleral icterus. No injection or drainage. NECK: Supple, trachea midline. No JVD or lymphadenopathy. CARDIOVASCULAR: Regular rate and rhythm without murmurs, gallops, or rubs. RESPIRATORY: Breath sounds equal bilaterally. No accessory muscle use. GASTROINTESTINAL: Abdomen soft, non-tender, nondistended. MUSCULOSKELETAL: No cyanosis, or edema. BACK: Nontender without obvious deformity. No CVA tenderness. Laboratory Laboratory Tests Test 03/01/17 15:27 03/02/17 04:15 White Blood Count 16.9 TH/MM3 17.3 TH/MM3 Red Blood Count 3.37 MIL/MM3 3.28 MIL/MM3 Hemoglobin 10.0 GM/DL 10.0 GM/DL Hematocrit 29.3 % 29.1 % Mean Corpuscular Volume 87.1 FL 88.8 FL Mean Corpuscular Hemoglobin 29.7 PG 30.5 PG Mean Corpuscular Hemoglobin Concent 34.1 % 34.3 % Red Cell Distribution Width 16.0 % 16.3 % Platelet Count 107 TH/MM3 119 TH/MM3 Mean Platelet Volume 7.9 FL 7.9 FL Neutrophils (%) (Auto) 91.8 % 93.1 % Lymphocytes (%) (Auto) 2.1 % 1.9 % Monocytes (%) (Auto) 6.0 % 4.9 % Eosinophils (%) (Auto) 0.0 % 0.0 % Basophils (%) (Auto) 0.1 % 0.1 % Neutrophils # (Auto) 15.5 TH/MM3 16.1 TH/MM3 Lymphocytes # (Auto) 0.4 TH/MM3 0.3 TH/MM3 Monocytes # (Auto) 1.0 TH/MM3 0.9 TH/MM3 Eosinophils # (Auto) 0.0 TH/MM3 0.0 TH/MM3 Basophils # (Auto) 0.0 TH/MM3 0.0 TH/MM3 CBC Comment DIFF FINAL DIFF FINAL Differential Comment Blood Urea Nitrogen 34 MG/DL 36 MG/DL Creatinine 1.83 MG/DL 1.61 MG/DL Random Glucose 126 MG/DL 106 MG/DL Total Protein 6.2 GM/DL 6.5 GM/DL Albumin 2.9 GM/DL 2.9 GM/DL Calcium Level 7.9 MG/DL 7.9 MG/DL Alkaline Phosphatase 67 U/L 74 U/L Aspartate Amino Transf (AST/SGOT) 190 U/L 138 U/L Alanine Aminotransferase (ALT/SGPT) 163 U/L 145 U/L Total Bilirubin 1.4 MG/DL 1.5 MG/DL Sodium Level 140 MEQ/L 140 MEQ/L Potassium Level 3.5 MEQ/L 4.2 MEQ/L Chloride Level 98 MEQ/L 101 MEQ/L Carbon Dioxide Level 30.7 MEQ/L 30.7 MEQ/L Anion Gap 11 MEQ/L 8 MEQ/L Estimat Glomerular Filtration Rate 28 ML/MIN 33 ML/MIN Prothrombin Time 11.1 SEC Prothromb Time International Ratio 1.1 RATIO Magnesium Level 2.0 MG/DL Imaging Last 24 hours Impressions Chest X-Ray 03/02/17 0600 Signed Impressions: Service Date/Time: Thursday, March 02, 2017 03:47 - CONCLUSION: There is no subsegmental consolidative infiltrate in the right upper lobe. Persistent left lower lobe consolidation. Kiet Rob MD Assessment and Plan Problem List: (1) PVD (peripheral vascular disease) ICD Codes: I73.9 - Peripheral vascular disease, unspecified (2) Anemia ICD Codes: D64.9 - Anemia, unspecified (3) Abdominal hematoma ICD Codes: S30.1XXA - Contusion of abdominal wall, initial encounter (4) Obesity ICD Codes: E66.9 - Obesity Status: Acute (5) SOB (shortness of breath) ICD Codes: R06.02 - SOB (shortness of breath) Status: Acute (6) Hx of coronary artery disease ICD Codes: Z86.79 - Personal history of other diseases of the circulatory system (7) Atrial fibrillation ICD Codes: I48.91 - Atrial fibrillation Status: Chronic (8) DM (diabetes mellitus) ICD Codes: E11.9 - DM (diabetes mellitus) Status: Chronic (9) Carotid stenosis ICD Codes: I65.29 - Occlusion and stenosis of unspecified carotid artery (10) History of four vessel coronary artery bypass graft ICD Codes: Z95.1 - Presence of aortocoronary bypass graft Assessment and Plan 1.) CAD - i could not image lyles, ow good flow to iw, lw, anterior wall with good wall motion but cant rule out lyles or lad disease therefore patient is moderate to high risk for noncardiac surgery, d/w Dr Cruz 2.) abdominal hematoma - rp bleed and groin hematoma ruled out, arterial injury and active bleeding from cath ruled out by angio 02/27/17, still requiring transfusion despite angiogram demonstrating no arterial injury or active bleeding suggesting bleeding is a local abdominal source, possibly due to lovenox injections, would explain why bleeding not tamponading as adipose tissue would lower resistance than rp or groin, still requiring transfusion and pressors but mental status good and u/o > 300/shift; d/w Dr Schafer 02/28/18 3.) PAF - in af rate controlled this am hr @ 85, ac held due to abdominal hematoma 4.) Carotid stenosis - surgery postponed due to abdominal hematoma 5.) Anemia - hgb stablelizing, creatinine improving, u/o increasing on lasix, pressors being weaned, continue to monitor hgb; hematoma evacuation per Dr Cruz Problem Qualifiers (1) Atrial fibrillation: Qualified Codes: I48.0 - Paroxysmal atrial fibrillation Macho Juarez MD Mar 02, 2017 13:29
[2017-03-02] MEDS: ATORVASTATIN 40 MG TAB PO SCH (21:00)
[2017-03-03] VITALS (15 sets, daily range): BP systolic 96–148; BP diastolic 59–88; PULSE 77–97; RESP 16–24; TEMP 97.2–98.2; O2SAT 90–99
[2017-03-03] MEDS: HYDROmorphone HCL PF 2 MG/ML VIAL IV PUSH PRN ×3 (00:53→20:55)
[2017-03-03] MEDS: FUROSEMIDE 40 MG/4 ML VIAL IV PUSH SCH ×3 (01:08→20:54)
[2017-03-03] MEDS: PIPERACIL-TAZO 3.375 GM PREMIX 50 ML IV SCH ×4 (01:08→23:31)
[2017-03-03] MEDS: RESP: ALBUTEROL 2.5 MG/IPRATROPIUM 0.5 MG NEB (SCH) NEB ×5 (04:30→20:20)
[2017-03-03 04:45] LABS: AUTOMATED NEUTROPHIL # 12.6 TH/MM3 (1.8-7.7); BASOPHIL % 0.2 % (0.0-2.0); EOSINOPHIL % 0.2 % (0.0-4.0); HEMATOCRIT 27.2 % (35.0-46.0); HEMOGLOBIN 9.4 GM/DL (11.6-15.3); LYMPH % 1.8 % (9.0-44.0); LYMPHOCYTE # 0.3 TH/MM3 (1.0-4.8); MEAN CELL VOLUME 89.7 FL (80.0-100.0); MEAN CORPUSCULAR HGB CONC 34.5 % (32.0-36.0); MEAN PLATELET VOLUME 7.6 FL (7.0-11.0); MONO % 5.7 % (0.0-8.0); MONOCYTE # 0.8 TH/MM3 (0-0.9); NEUT % 92.1 % (16.0-70.0); PLATELET COUNT 106 TH/MM3 (150-450); RED BLOOD COUNT 3.03 MIL/MM3 (4.00-5.30); RED CELL DISTRIBUTION WIDTH 16.4 % (11.6-17.2); WHITE BLOOD COUNT 13.7 TH/MM3 (4.0-11.0)
[2017-03-03 05:13] LABS: ALBUMIN 2.6 GM/DL (3.4-5.0); ALKALINE PHOSPHATASE 78 U/L (45-117); ALT (GPT) 99 U/L (10-53); AST (GOT) 83 U/L (15-37); BICARBONATE 33.8 MEQ/L (21.0-32.0); BLOOD UREA NITROGEN 35 MG/DL (7-18); CALCIUM 8.3 MG/DL (8.5-10.1); CHLORIDE 103 MEQ/L (98-107); CREATININE 1.08 MG/DL (0.50-1.00); GLOMERULAR FILTRATION RATE 52 ML/MIN (>89); GLUCOSE,RANDOM 92 MG/DL (74-106); MAGNESIUM 1.9 MG/DL (1.5-2.5); SODIUM (NA) 144 MEQ/L (136-145); TOTAL BILIRUBIN ADULT 1.2 MG/DL (0.2-1.0); TOTAL PROTEIN 6.3 GM/DL (6.4-8.2)
[2017-03-03] MEDS: AMIODARONE INJ 450 MG in SODIUM CHLOR 0.9% (EXCEL) INJ 241 ML IV PRN ×2 (05:30→23:38)
[2017-03-03] MEDS: ISOSORBIDE MONONITRATE 30 MG TAB PO SCH (05:31)
[2017-03-03] MEDS: HYDROCORTISONE SOD SUCCINATE 100 MG VIAL IV SCH ×3 (05:31→20:54)
[2017-03-03] MEDS: LEVOTHYROXINE SODIUM 100 MCG VIAL IV PUSH SCH (05:31)
--- NOTE | 2017-03-03 06:10 | RADRPT ---
EXAM DATE/TIME: 03/03/2017 04:52 [facility] COMPARISON: CHEST SINGLE AP, March 02, 2017, 3:47. INDICATIONS : Short of breath. MEDICAL HISTORY : Cardiovascular disease. Hypertension Chronic obstructive pulmonary disease. SURGICAL HISTORY : Pacemaker. CABG. ENCOUNTER: Subsequent ACUITY: 1 week PAIN SCORE: 0/10 LOCATION: Bilateral chest FINDINGS: Left central line tip projects over the origin of the superior vena cava. Increasing right upper lob e consolidative infiltrate and a new area of patchy consolidation right lower lobe. Persistent conso lidation left mid and lower lung with loss of delineation of the entire left hemidiaphragm. CONCLUSION: Increasing partially consolidative infiltrates in the right upper and right lower lung. Persistent l obar consolidation left lower lobe. Kiet Rob MD on March 03, 2017 at 6:07 Board Certified Radiologist. This report was verified electronically.
[2017-03-03 06:54] LABS: BANDS 6 % (0-6); CORRECTED NUCLEATED RBC 2 /100 WBC (0-0); MONOCYTES 2 % (0-8); NEUTROPHIL # MANUAL DIFF 13.4 TH/MM3 (1.8-7.7); NUCLEATED RED BLOOD CELL 2 (0-0); POLYS (SEG NEUTROPHILS) 92 % (16-70)
[2017-03-03] MEDS: PANTOPRAZOLE SODIUM 40 MG VIAL IV PUSH SCH ×2 (07:53→20:54)
[2017-03-03] MEDS: INSULIN ASPART SUPPLEMENTAL SCALE SQ SCH ×4 (07:58→21:00)
[2017-03-03] MEDS: POTASSIUM CHLORIDE 20 MEQ CONTROLLED RELEASE TAB PO SCH ×2 (08:53→21:00)
[2017-03-03] MEDS: LINEZOLID 600 MG PREMIX 300 ML IV SCH ×2 (08:53→20:55)
[2017-03-03] MEDS: VENLAFAXINE HCL XR 75 MG CAP PO SCH (08:53)
[2017-03-03] MEDS: BUDESONIDE-FORMOTEROL 160/4.5 MCG INHALER INH SCH ×2 (08:53→20:56)
[2017-03-03] MEDS: TIOTROPIUM BROMIDE 18 MCG INH INH SCH (08:53)
[2017-03-03] MEDS: SODIUM CHLORIDE 0.9% FLUSH 10 ML FLUSH IV FLUSH SCH ×2 (08:54→20:56)
[2017-03-03] MEDS ORDERED: POTASSIUM CHLOR 40 MEQ PREMIX 100 ML IV PRN (09:45)
[2017-03-03] MEDS ORDERED: POTASSIUM PHOSPHATE MONOBASIC 500 MG TAB PO PRN (09:45)
[2017-03-03] MEDS ORDERED: POTASSIUM CHLOR 20 MEQ PREMIX 100 ML IV PRN ×2 (09:45)
[2017-03-03] MEDS ORDERED: SODIUM PHOSPHATE INJ 30 MMOL in SODIUM CHLOR 0.9% 250 ML INJ 240 ML IV PRN (09:45)
[2017-03-03] MEDS ORDERED: MAGNESIUM SULFATE INJ 2 GM in SODIUM CHLORIDE 0.9% INJ 96 ML IV PRN (09:45)
[2017-03-03] MEDS ORDERED: POTASSIUM PHOSPHATE MONOBASIC 500 MG TAB PO/TUBE PRN (09:45)
[2017-03-03] MEDS ORDERED: POTASSIUM PHOSPHATE INJ 30 MMOL in SODIUM CHLOR 0.9% 250 ML INJ 250 ML IV PRN (09:45)
[2017-03-03] MEDS ORDERED: POTASSIUM CHLORIDE 25 MEQ EFFERVESCENT TAB PO PRN (09:45)
[2017-03-03] MEDS ORDERED: MAGNESIUM SULFATE INJ 4 GM in SODIUM CHLORIDE 0.9% INJ 92 ML IV PRN (09:45)
[2017-03-03] MEDS ORDERED: MAGNESIUM OXIDE 400 MG TAB PO PRN (09:45)
--- NOTE | 2017-03-03 09:49 | HHI.CCPN ---
Subjective Remarks/Hospital Course 61-year-old female with a past medical history significant for CAD status post CABG, atrial fibrillation, diabetes mellitus, polycystic kidney disease, CHF ( echo with EF of 55-60% in 2015), hypertension, hyperlipidemia and hypothyroidism presents to the emergency department complaining of dizziness and falling. Her CT of the neck show 70% occlusive disease off right carotid artery and she was planned to undergo right carotid endarterectomy. Further vascular procedures she underwent elective cardiac catheterization that shows patent vessels without significant obstructive disease. Shortly after procedure patient developed severe hypotension and tachycardia with systolic blood pressure at 60s and significant decrease in hemoglobin. She was taken emergently to CT of the abdomen/aorta runoff, the didn't show any dissection or aneurysm however shows large hematoma of abdominal wall. SUBJ 02/27: Remains in profound shock. ON Levophed 20, Jaron 100, Vasopressin 0.04. Received total of 8 units of PRBC, 4 units of FFP to pack units of platelets and 2 cryo. Hb after 5U PRBC was 8.7 at 3 am. Discussed with vascular surgery Dr. Oliva re possible surgical intervention. Patient is also on chronic steroids prednisone 5 mg twice a day (for RA trial per patient). I will give 200 mg IV hydrocortisone STAT followed by 100 mg every 8 hours. Also change Synthroid to 75 g IV daily. Pain improved with Dilaudid. Will place on PRN Dilaudid. UO 400 ml overnight. Check bladder pressure 02/28: Remains intubated critically ill FiO2 at 60%. Remains on Jaron-Synephrine at 30 mcg/m, vasopressin at 0.04 international units per minute. Receive 2 units of PRBC for hemoglobin of 7.6 overnight. Today 9.3. Creatinine has increased to 2.14. Urine output 575 mg in 24 hours. 03/01: Remains critically ill on vasopressin. Received 2 units of PRBC for hemoglobin 7.6. Urine output increased with diuretics. 1.5 L in 24 hours, creatinine stable to slightly improved. Given Lasix 80 mg IV 1 now with potassium replacement. Start weaning trials again 03/02: Extubated yesterday but required BiPAP overnight. Becomes hypoxic and short of breath when BiPAP was weaned. Hemodynamically improved remains on 0.01 vasopressin. Hb 10. Urine output 3 L with Lasix creatinine improved to 1.6. Significant positive fluid balance. Lasix increased 03/03: Was on BiPAP overnight currently on nonrebreather. Maintaining saturation about 90%. Chest x-ray showing worsening infiltrate new extensive right-sided infiltrates persistent left lower lobe consolidation. Zyvox restarted. Creatinine Endo has improved from 1.6-1.08, white count has improved from 17.3-13.7. Urine output 3.7 L in 24 hours Objective Vital Signs Date Time Temp Pulse Resp B/P (MAP) Pulse Ox O2 Delivery O2 Flow Rate FiO2 03/03/17 07:42 97 Non-Rebreather 03/03/17 07:40 77 03/03/17 07:31 97.5 20 96/59 (71) 03/03/17 07:28 15.00 03/03/17 04:30 50 Intake and Output 03/03/17 03/03/17 03/04/17 08:00 16:00 00:00 Intake Total 300 ml 50 ml Output Total 2410 ml Balance -2110 ml 50 ml Result Diagram: 03/03/17 0340 03/03/17 0340 Imaging Last 24 hours Impressions Chest X-Ray 02/26/17 1812 Signed Impressions: Service Date/Time: February 18:12 - CONCLUSION: Stable exam with cardiomegaly and left basilar atelectasis. Kiet Camarena Jr., MD Aorta CTA 02/26/17 0000 Signed Impressions: Service Date/Time: February 19:19 - CONCLUSION: 1. Large anterior abdominal wall hematoma. 2. No aortic dissection or aneurysm. 3. Changes involving the liver suggesting cirrhosis. 4. Cholelithiasis. 5. Bibasilar atelectasis. 6. Cardiomegaly. Kiet Camarena Jr., MD Objective Remarks GENERAL: Morbidly obese patient. On NRB, critically ill, mild to moderate respiratory distress SKIN: Warm and dry. Ecchymosis lower abdomen HEAD: Normocephalic. ENT: NRB mask in place NECK: Supple, trachea midline. No JVD or lymphadenopathy. CARDIOVASCULAR: Atrial fibrillation rate controlled. Heart sounds are distant. On Amiodarone gtt RESPIRATORY: Breath sounds equal bilaterally. Bilateral wheezing and coarse rhonchi in all lung aguilar GASTROINTESTINAL: Abdomen distended tender to palpation in the lower abdomen. Ecchymosis lower abdomen MUSCULOSKELETAL: No cyanosis : Ferguson in place with tea colored urine NEURO EXAM: Alert awake oriented. Follows commands. No focal deficits Urinary Catheter: Yes Assessment to: Continue Vascular Central Line Catheter: Yes Assessment to: Continue A/P Assessment and Plan Neuro: TIA - Minimize sedation. - Dilaudid and oxycodone when necessary for pain control - Previously planned CEA postponed indefinitely CVA/Heme: Hemorrhagic shock-resolving Large anterior abdominal wall/rectus sheath hematoma s/p cardiac catheterization Atrial fibrillation with RVR - Status post approximately 14 units PRBC, 4 units of FFP, 2 units of platelets , 2 cryo, including 2 units of PRBC last night - monitor hemoglobin, coags - Anterior abdominal wall hematoma on CTA. Discussed with vascular surgery Dr. Oliva, Dr. Whitley and Dr. Encarnacion. No active leak - Significant fluid positive. Increase lasix to 40 q8, additional 20 mg now. - At home On chronic prednisone 5 mg twice a day. Continue stress dose steroids 100 every 8, but reduce to 50 mg IV every 8 hours 03/03/17 - Synthroid to IV 75 g daily - Rate controlled, now NSR, On amiodarone IV and received single dose of digoxin - Hold anticoagulation due to blood loss. Hold all antiplatelet therapy - Surgical intervention and evacuation of hematoma indicated if uncontrolled bleeding Resp: Acute hypoxemic respiratory failure Acute COPD exacerbation Healthcare associated pneumonia - Intubated by anesthesia for angiography - Extubated 03/01 but requiring BiPAP PRN and night. now with hypoxemic respiratory failure - DuoNeb every 4 hours and when necessary - Symbicort and Spiriva. Receiving steroids as hydrocortisone GI: Transaminitis - Keep nothing by mouth, until stable respiratory fofana IV Protonix, may start full liquid diet and afternoon he respiratory status stable - Abdominal wall hematoma management as above - Elevated liver enzymes secondary to shock-now improving : Acute on chronic kidney failure - Acute kidney failure secondary to ATN - Previously on Bumex continue forced diuresis with IV Lasix as above - Creatinine actually improving with forced diuresis ID Probable healthcare associated pneumonia - Continue Zosyn per ID. Zyvox will be restarted due to new right-sided infiltrates Endo: - Continue IV Synthroid DVT GI prophylaxis - Teds/SCDs - Hold pharmacological DVT prophylaxis due to acute blood loss - PPI Critical Care: The total critical care time was 35 minutes. Time to perform other separately billable procedures was not included in the critical care time. Remains critically ill with with hypoxemic respiratory failure, fluid overload, worsening healthcare associated pneumonia Padmaja Wan MD Mar 03, 2017 09:49
[2017-03-03] MEDS ORDERED: FUROSEMIDE 20 MG/2 ML VIAL IV PUSH ONE (10:00)
--- NOTE | 2017-03-03 11:45 | HHI.IDPN ---
Note Infectious Disease Note Remains on O2 via NRM. More awake but limited communication due to O2 mask. Afebrile. Has wet cough. Sputum culture pending. Patient presented to [facility] emergency department on 02/22 with generalized weakness. The patient reportedly was having problems with dizziness. PAST MEDICAL HISTORY: 1. hypertension 2. Hyperlipidemia 3. polycystic kidney disease 4. Hypothyroidism 5. coronary artery disease 6. history of coronary bypass graft surgery 7. atrial fibrillation status post ablation times four 8. AICD placement 9. Tonsillectomy 10. bilateral tubal ligation 11. Arthritis ALLERGIES VANCOMYCIN LEVAQUIN ERYTHROMYCIN AZITHROMYCIN CYCLOSPORIN MRI precaution. MEDICATIONS Current Medications Medications (Trade) Dose Ordered Sig/Alexa Route PRN Reason Start Time Stop Time Status Last Admin Dose Admin Aspirin (Aspirin) 325 mg DAILY PO 02/23/17 09:00 Future Hold 02/25/17 08:24 Insulin Aspart (NovoLOG SUPPLEMENTAL SCALE) 1 ACHS SQ 02/22/17 12:00 02/28/17 22:00 Dextrose (D50w (Vial) Inj) 50 ml UNSCH PRN IV PUSH HYPOGLYCEMIA-SEE COMMENTS 02/22/17 09:45 Glucagon (Glucagon Inj) 1 mg UNSCH PRN OTHER HYPOGLYCEMIA-SEE COMMENTS 02/22/17 09:45 Amiodarone HCl (Cordarone) 200 mg DAILY PO 02/23/17 09:00 Future Hold 02/26/17 09:19 Atorvastatin Calcium (Lipitor) 40 mg HS PO 02/22/17 21:00 02/28/17 21:39 Bumetanide (Bumetanide) 1 mg DAILY PO 02/23/17 09:00 Future Hold Isosorbide Mononitrate (Imdur) 30 mg DAILY@0700 PO 02/23/17 07:00 02/26/17 09:19 Levothyroxine Sodium (Synthroid) 200 mcg DAILY@0600 PO 02/23/17 06:00 Future Hold 03/01/17 06:15 Metoprolol Tartrate (Lopressor) 50 mg BID PO 02/22/17 21:00 Future Hold 02/26/17 09:18 Sacubitril/ Valsartan (Entresto 97-103 Mg) 1 tab BID PO 02/22/17 21:00 Future Hold 02/22/17 21:16 Spironolactone (Aldactone) 12.5 mg DAILY PO 02/23/17 09:00 Future Hold Venlafaxine HCl (Effexor Xr) 75 mg DAILY PO 02/23/17 09:00 03/03/17 08:53 Miscellaneous (Pill Splitter) 1 ea UNSCH PRN OTHER SEE LABEL COMMENTS 02/22/17 11:00 Acetaminophen/ Hydrocodone Bitart ([place] 5-325 Mg) 1 tab Q6H PRN PO PAIN 1-5 02/22/17 13:00 02/26/17 16:03 Prednisone (Deltasone) 5 mg BID PO 02/22/17 21:00 Future Hold 02/26/17 09:19 Sodium Chloride (NS Flush) 2 ml BID IV FLUSH 02/26/17 21:00 03/03/17 08:54 Sodium Chloride (NS Flush) 2 ml UNSCH PRN IV FLUSH FLUSH AFTER USING IV ACCESS 02/26/17 16:15 Terbutaline Sulfate (Brethine Inj) 1 mg UNSCH PRN SQ For Extravasation 02/26/17 22:00 Ondansetron HCl (Zofran Inj) 4 mg Q4H PRN IV PUSH NAUSEA OR VOMITING 02/26/17 23:00 Terbutaline Sulfate (Brethine Inj) 1 mg UNSCH PRN SQ FOR EXTRAVASATION PROTOCOL 02/27/17 00:15 Pantoprazole Sodium (Protonix Inj) 40 mg Q12H IV PUSH 02/27/17 08:00 03/03/17 07:53 Levothyroxine Sodium (Synthroid Inj) 75 mcg DAILY@06 IV PUSH 02/27/17 07:30 03/03/17 05:31 Hydromorphone HCl (Dilaudid Pf Inj) 1 mg Q3H PRN IV PUSH Pain 6-10 02/27/17 07:15 03/03/17 06:29 Lorazepam (Ativan Inj) 0.5 mg Q2H PRN IV PUSH anxiety 02/27/17 07:15 Amiodarone HCl 450 mg/Sodium Chloride 250 ml @ 33.33 mls/ hr Q7H31M PRN IV Per Protocol 02/27/17 15:45 03/03/17 05:30 Piperacillin Sod/ Tazobactam Sod 50 ml @ 100 mls/hr Q8H IV 02/28/17 08:00 03/03/17 07:53 Potassium Chloride (KCl) 20 meq Q12HR PO 1/21/18 21:00 03/03/17 08:53 Albuterol/ Ipratropium (Duoneb Neb) 1 ampule Q4HR NEB NEB 03/02/17 12:00 03/03/17 11:27 Furosemide (Lasix Inj) 40 mg Q8H IV PUSH 03/02/17 10:00 03/03/17 01:08 Albuterol/ Ipratropium (Duoneb Neb) 1 ampule Q2HR NEB PRN NEB SHORTNESS OF BREATH 03/02/17 08:15 Budesonide/ Formoterol Fumarate (Symbicort 160-4.5 Mcg Inh) 2 puff Q12HR INH 03/02/17 09:00 03/03/17 08:53 Tiotropium [place] (Spiriva Inh) 18 mcg DAILY INH 03/02/17 09:00 03/03/17 08:53 Linezolid 300 ml @ 300 mls/hr Q12HR IV 03/03/17 09:00 03/03/17 08:53 Hydrocortisone Sodium Succinate (SoluCORTEF INJ) 50 mg Q8HR IV 03/03/17 14:00 Potassium Chloride 100 ml @ 50 mls/hr Q2H PRN IV For Potassium 2.8 - 3.2 mEq/L 03/03/17 09:45 Potassium Chloride 100 ml @ 50 mls/hr Q2H PRN IV For Potassium 2.8 - 3.2 mEq/L 03/03/17 09:45 Potassium Bicarb/ Potassium Chloride (K-Lyte Cl Eff) 50 meq UNSCH PRN PO For Potassium 3.3 - 3.5 mEq/L 03/03/17 09:45 Potassium Chloride 100 ml @ 25 mls/hr UNSCH PRN IV For Potassium 3.3 - 3.5 mEq/L 03/03/17 09:45 Potassium Chloride 100 ml @ 50 mls/hr Q2H PRN IV For Potassium 3.3 - 3.5 mEq/L 03/03/17 09:45 Magnesium Sulfate 4 gm/Sodium Chloride 100 ml @ 50 mls/hr UNSCH PRN IV For Magnesium 0.9 - 1.1 mg/dL 03/03/17 09:45 Magnesium Oxide (Mag-Ox) 800 mg UNSCH PRN PO For Magnesium 1.2 - 1.6 mg/dL 03/03/17 09:45 Magnesium Sulfate 2 gm/Sodium Chloride 100 ml @ 50 mls/hr UNSCH PRN IV For Magnesium 1.2 - 1.6 mg/dL 03/03/17 09:45 Potassium Phosphate (K-Phos) 2,000 mg Q4H PRN PO For Phosphorus < 2.5 mg/dL 03/03/17 09:45 Sodium Phosphate 30 mmol/Sodium Chloride 250 ml @ 42 mls/hr UNSCH PRN IV For Phosphorus < 2.5 mg/dL 03/03/17 09:45 Potassium Phosphate (K-Phos) 2,000 mg UNSCH PRN PO/TUBE SEE LABEL COMMENTS 03/03/17 09:45 Potassium Phosphate 30 mmol/ Sodium Chloride 260 ml @ 42 mls/hr UNSCH PRN IV SEE LABEL COMMENTS 03/03/17 09:45 OBJECTIVE: Vital Signs Date Time Temp Pulse Resp B/P (MAP) Pulse Ox O2 Delivery O2 Flow Rate FiO2 03/03/17 07:42 97 Non-Rebreather 03/03/17 07:40 77 03/03/17 07:31 97.5 77 20 96/59 (71) 97 03/03/17 07:28 95 Non-Rebreather 15.00 03/03/17 07:27 20 03/03/17 05:30 92 106/66 03/03/17 04:30 96 50 03/03/17 03:00 90 03/03/17 03:00 98.0 97 16 106/71 (83) 96 03/03/17 03:00 94 Bi-Pap 55 03/03/17 01:16 90 50 03/02/17 23:00 88 03/02/17 23:00 94 Bi-Pap 55 03/02/17 23:00 97.8 93 16 127/83 (98) 94 03/02/17 20:15 97 50 03/02/17 20:00 92 03/02/17 20:00 97 Bi-Pap 55 03/02/17 20:00 97.5 90 19 102/67 (79) 97 03/02/17 17:58 88 55 03/02/17 15:14 92 Non-Rebreather 03/02/17 15:13 110 03/02/17 15:12 97.8 116 24 125/75 (92) 91 03/02/17 13:01 97 50 03/02/17 11:45 108 115/72 Laboratory Tests Test 03/01/17 15:27 03/02/17 04:15 03/03/17 03:40 White Blood Count 16.9 TH/MM3 17.3 TH/MM3 13.7 TH/MM3 Red Blood Count 3.37 MIL/MM3 3.28 MIL/MM3 3.03 MIL/MM3 Hemoglobin 10.0 GM/DL 10.0 GM/DL 9.4 GM/DL Hematocrit 29.3 % 29.1 % 27.2 % Mean Corpuscular Volume 87.1 FL 88.8 FL 89.7 FL Mean Corpuscular Hemoglobin 29.7 PG 30.5 PG 31.0 PG Mean Corpuscular Hemoglobin Concent 34.1 % 34.3 % 34.5 % Red Cell Distribution Width 16.0 % 16.3 % 16.4 % Platelet Count 107 TH/MM3 119 TH/MM3 106 TH/MM3 Mean Platelet Volume 7.9 FL 7.9 FL 7.6 FL Neutrophils (%) (Auto) 91.8 % 93.1 % 92.1 % Lymphocytes (%) (Auto) 2.1 % 1.9 % 1.8 % Monocytes (%) (Auto) 6.0 % 4.9 % 5.7 % Eosinophils (%) (Auto) 0.0 % 0.0 % 0.2 % Basophils (%) (Auto) 0.1 % 0.1 % 0.2 % Neutrophils # (Auto) 15.5 TH/MM3 16.1 TH/MM3 12.6 TH/MM3 Lymphocytes # (Auto) 0.4 TH/MM3 0.3 TH/MM3 0.3 TH/MM3 Monocytes # (Auto) 1.0 TH/MM3 0.9 TH/MM3 0.8 TH/MM3 Eosinophils # (Auto) 0.0 TH/MM3 0.0 TH/MM3 0.0 TH/MM3 Basophils # (Auto) 0.0 TH/MM3 0.0 TH/MM3 0.0 TH/MM3 CBC Comment DIFF FINAL DIFF FINAL AUTO DIFF Differential Comment FINAL DIFF MANUAL Differential Total Cells Counted 100 Neutrophils % (Manual) 92 % Band Neutrophils % 6 % Monocytes % 2 % Neutrophils # (Manual) 13.4 TH/MM3 Nucleated Red Blood Cells 2 /100 WBC Platelet Estimate LOW Platelet Morphology Comment NORMAL Basophilic Stippling FAINT Laboratory Tests Test 03/01/17 15:27 03/02/17 04:15 03/03/17 03:40 Blood Urea Nitrogen 34 MG/DL 36 MG/DL 35 MG/DL Creatinine 1.83 MG/DL 1.61 MG/DL 1.08 MG/DL Random Glucose 126 MG/DL 106 MG/DL 92 MG/DL Total Protein 6.2 GM/DL 6.5 GM/DL 6.3 GM/DL Albumin 2.9 GM/DL 2.9 GM/DL 2.6 GM/DL Calcium Level 7.9 MG/DL 7.9 MG/DL 8.3 MG/DL Alkaline Phosphatase 67 U/L 74 U/L 78 U/L Aspartate Amino Transf (AST/SGOT) 190 U/L 138 U/L 83 U/L Alanine Aminotransferase (ALT/SGPT) 163 U/L 145 U/L 99 U/L Total Bilirubin 1.4 MG/DL 1.5 MG/DL 1.2 MG/DL Sodium Level 140 MEQ/L 140 MEQ/L 144 MEQ/L Potassium Level 3.5 MEQ/L 4.2 MEQ/L 3.4 MEQ/L Chloride Level 98 MEQ/L 101 MEQ/L 103 MEQ/L Carbon Dioxide Level 30.7 MEQ/L 30.7 MEQ/L 33.8 MEQ/L Anion Gap 11 MEQ/L 8 MEQ/L 7 MEQ/L Estimat Glomerular Filtration Rate 28 ML/MIN 33 ML/MIN 52 ML/MIN Magnesium Level 2.0 MG/DL 1.9 MG/DL Microbiology Date/Time Source Procedure Growth Status 03/02/17 09:15 Sputum Expectorated Sputum Gram Stain - Final Resulted 03/02/17 09:15 Sputum Expectorated Sputum Sputum Culture Pending Resulted IMAGING: Chest X-Ray 03/03/17 06 Signed Impressions: Service Date/Time: Friday, March 03, 2017 04:52 - CONCLUSION: Increasing partially consolidative infiltrates in the right upper and right lower lung. Persistent lobar consolidation left lower lobe. Kiet Rob MD Chest X-Ray 03/02/17 0600 Signed Impressions: Service Date/Time: Thursday, March 02, 2017 03:47 - CONCLUSION: There is no subsegmental consolidative infiltrate in the right upper lobe. Persistent left lower lobe consolidation. Kiet Rob MD Angiography 02/27/17 1219 Signed Impressions: Service Date/Time: Monday, February 27, 2017 11:03 - CONCLUSION: No evidence of arterial injury and no findings to indicate site of bleeding to account for anterior abdominal wall hematoma. Savage Aranda MD Aorta CTA 02/26/17 0000 Signed Impressions: Service Date/Time: February 19:19 - CONCLUSION: 1. Large anterior abdominal wall hematoma. 2. No aortic dissection or aneurysm. 3. Changes involving the liver suggesting cirrhosis. 4. Cholelithiasis. 5. Bibasilar atelectasis. 6. Cardiomegaly. Kiet Camarena Jr., MD Neck CTA 02/22/17 0000 Signed Impressions: Service Date/Time: Wednesday, February 22, 2017 06:25 - CONCLUSION: 1. Prominent atherosclerotic disease at carotid bulbs resulting in approximately 70%% stenosis of the proximal right ICA at its origin and approximately 40-50%% stenosis of the proximal left ICA. 2. Moderate grade stenosis of the proximal left common carotid artery at its origin. Gurdeep Laird MD Head CTA 02/22/17 0000 Signed Impressions: Service Date/Time: Wednesday, February 22, 2017 06:25 - CONCLUSION: No evidence of proximal high-grade stenosis or occlusion. Gurdeep Laird MD Head CT 02/22/17 0000 Signed Impressions: Service Date/Time: Wednesday, February 22, 2017 06:25 - CONCLUSION: Normal examination for a patient of this age. No significant change has occurred. Billy Weems MD PHYSICAL EXAMINATION: GENERAL: No acute distress. HEAD, EYES, EARS, NOSE, AND THROAT: Moist mucosa. NECK: No swelling or adenopathy. LUNGS: Bilateral rhonchi and wheezing. HEART: Irregular rate and rhythm. No murmurs audible. ABDOMEN: Distended. Soft, non tender. EXTREMITIES: No clubbing or cyanosis or edema. SKIN: No diffuse rash. NEUROLOGIC: Unable to fully assess. Moves all extremities. PSYCHIATRIC: Unable to assess. IMPRESSION 1. Hemorrhagic shock. Patient developed hypotension and tachycardia and abdominal wall hematoma. 2. Leukocytosis. 3. Acute kidney disease. The patient received contrast for radiographic study and also she was hypotensive and may have had also hypotensive insult to the kidney. 4. Lung infiltrate. ? VAP. 5. Multiple antibiotic allergies. RECOMMENDATIONS 1. Continue piperacillin/tazobactam. 2. Monitor the sputum culture. Started on Zyvox. Sputum gram stain has gram positive cocci. Monitor the platelet count on the Zyvox. 3. Follow the white count. 4. monitor clinical status. Antonio Tobar MD Mar 03, 2017 11:45
--- NOTE | 2017-03-03 14:09 | PD.CARD.PN ---
Subjective Subjective Remarks extubated, on nrb, verbal in nad Objective Medications Current Medications Medications (Trade) Dose Ordered Sig/Alexa Route Start Time Stop Time Status Last Admin (Aspirin) 325 mg DAILY PO 02/23/17 09:00 Future Hold 02/25/17 08:24 (NovoLOG SUPPLEMENTAL SCALE) 1 ACHS SQ 02/22/17 12:00 02/28/17 22:00 (D50w (Vial) Inj) 50 ml UNSCH PRN IV PUSH 02/22/17 09:45 (Glucagon Inj) 1 mg UNSCH PRN OTHER 02/22/17 09:45 (Cordarone) 200 mg DAILY PO 02/23/17 09:00 Future Hold 02/26/17 09:19 (Lipitor) 40 mg HS PO 02/22/17 21:00 02/28/17 21:39 (Bumetanide) 1 mg DAILY PO 02/23/17 09:00 Future Hold (Imdur) 30 mg DAILY@0700 PO 02/23/17 07:00 02/26/17 09:19 (Synthroid) 200 mcg DAILY@0600 PO 02/23/17 06:00 Future Hold 03/01/17 06:15 (Lopressor) 50 mg BID PO 02/22/17 21:00 Future Hold 02/26/17 09:18 (Entresto 97-103 Mg) 1 tab BID PO 02/22/17 21:00 Future Hold 02/22/17 21:16 (Aldactone) 12.5 mg DAILY PO 02/23/17 09:00 Future Hold (Effexor Xr) 75 mg DAILY PO 02/23/17 09:00 03/03/17 08:53 (Pill Splitter) 1 ea UNSCH PRN OTHER 02/22/17 11:00 ([place] 5-325 Mg) 1 tab Q6H PRN PO 02/22/17 13:00 02/26/17 16:03 (Deltasone) 5 mg BID PO 02/22/17 21:00 Future Hold 02/26/17 09:19 (NS Flush) 2 ml BID IV FLUSH 02/26/17 21:00 03/03/17 08:54 (NS Flush) 2 ml UNSCH PRN IV FLUSH 02/26/17 16:15 (Brethine Inj) 1 mg UNSCH PRN SQ 02/26/17 22:00 (Zofran Inj) 4 mg Q4H PRN IV PUSH 02/26/17 23:00 (Brethine Inj) 1 mg UNSCH PRN SQ 02/27/17 00:15 (Protonix Inj) 40 mg Q12H IV PUSH 02/27/17 08:00 03/03/17 07:53 (Synthroid Inj) 75 mcg DAILY@06 IV PUSH 02/27/17 07:30 03/03/17 05:31 (Dilaudid Pf Inj) 1 mg Q3H PRN IV PUSH 02/27/17 07:15 03/03/17 06:29 (Ativan Inj) 0.5 mg Q2H PRN IV PUSH 02/27/17 07:15 Amiodarone HCl 450 mg/Sodium Chloride 250 ml @ 33.33 mls/ hr Q7H31M PRN IV 02/27/17 15:45 03/03/17 05:30 Piperacillin Sod/ Tazobactam Sod 50 ml @ 100 mls/hr Q8H IV 02/28/17 08:00 03/03/17 07:53 (KCl) 20 meq Q12HR PO 03/01/17 21:00 03/03/17 08:53 (Duoneb Neb) 1 ampule Q4HR NEB NEB 03/02/17 12:00 03/03/17 11:27 (Lasix Inj) 40 mg Q8H IV PUSH 03/02/17 10:00 03/03/17 11:40 (Duoneb Neb) 1 ampule Q2HR NEB PRN NEB 03/02/17 08:15 (Symbicort 160-4.5 Mcg Inh) 2 puff Q12HR INH 03/02/17 09:00 03/03/17 08:53 (Spiriva Inh) 18 mcg DAILY INH 03/02/17 09:00 03/03/17 08:53 Linezolid 300 ml @ 300 mls/hr Q12HR IV 03/03/17 09:00 03/03/17 08:53 (SoluCORTEF INJ) 50 mg Q8HR IV 03/03/17 14:00 Potassium Chloride 100 ml @ 50 mls/hr Q2H PRN IV 03/03/17 09:45 03/03/17 11:40 Potassium Chloride 100 ml @ 50 mls/hr Q2H PRN IV 03/03/17 09:45 (K-Lyte Cl Eff) 50 meq UNSCH PRN PO 03/03/17 09:45 Potassium Chloride 100 ml @ 25 mls/hr UNSCH PRN IV 03/03/17 09:45 Potassium Chloride 100 ml @ 50 mls/hr Q2H PRN IV 03/03/17 09:45 Magnesium Sulfate 4 gm/Sodium Chloride 100 ml @ 50 mls/hr UNSCH PRN IV 03/03/17 09:45 (Mag-Ox) 800 mg UNSCH PRN PO 03/03/17 09:45 Magnesium Sulfate 2 gm/Sodium Chloride 100 ml @ 50 mls/hr UNSCH PRN IV 03/03/17 09:45 (K-Phos) 2,000 mg Q4H PRN PO 03/03/17 09:45 Sodium Phosphate 30 mmol/Sodium Chloride 250 ml @ 42 mls/hr UNSCH PRN IV 03/03/17 09:45 (K-Phos) 2,000 mg UNSCH PRN PO/TUBE 03/03/17 09:45 Potassium Phosphate 30 mmol/ Sodium Chloride 260 ml @ 42 mls/hr UNSCH PRN IV 03/03/17 09:45 Vital Signs / I&O Vital Signs Date Time Temp Pulse Resp B/P (MAP) Pulse Ox O2 Delivery O2 Flow Rate FiO2 03/03/17 07:42 97 Non-Rebreather 03/03/17 07:40 77 03/03/17 07:31 97.5 77 20 96/59 (71) 97 03/03/17 07:28 95 Non-Rebreather 15.00 03/03/17 07:27 20 03/03/17 05:30 92 106/66 03/03/17 04:30 96 50 03/03/17 03:00 90 03/03/17 03:00 98.0 97 16 106/71 (83) 96 03/03/17 03:00 94 Bi-Pap 55 03/03/17 01:16 90 50 03/02/17 23:00 88 03/02/17 23:00 94 Bi-Pap 55 03/02/17 23:00 97.8 93 16 127/83 (98) 94 03/02/17 20:15 97 50 03/02/17 20:00 92 03/02/17 20:00 97 Bi-Pap 55 03/02/17 20:00 97.5 90 19 102/67 (79) 97 03/02/17 17:58 88 55 03/02/17 15:14 92 Non-Rebreather 03/02/17 15:13 110 03/02/17 15:12 97.8 116 24 125/75 (92) 91 I/O 03/02/17 03/02/17 03/02/17 03/03/17 03/03/17 03/03/17 07:00 15:00 23:00 07:00 15:00 23:00 Intake Total 300 ml 355 ml 100 ml 300 ml 50 ml Output Total 1200 ml 1340 ml 2410 ml Balance -900 ml 355 ml -1240 ml -2110 ml 50 ml Intake Oral 0 ml 0 ml IV Total 300 ml 355 ml 100 ml 300 ml 50 ml Output Urine Total 1200 ml 1340 ml 2410 ml # Bowel Movements 1 0 0 Physical Exam GENERAL: SKIN: Warm and dry. HEAD: Normocephalic. EYES: No scleral icterus. No injection or drainage. NECK: Supple, trachea midline. No JVD or lymphadenopathy. CARDIOVASCULAR: Regular rate and rhythm without murmurs, gallops, or rubs. RESPIRATORY: Breath sounds equal bilaterally. No accessory muscle use. GASTROINTESTINAL: Abdomen soft, non-tender, nondistended. MUSCULOSKELETAL: No cyanosis, or edema. BACK: Nontender without obvious deformity. No CVA tenderness. Laboratory Laboratory Tests Test 03/03/17 03:40 03/03/17 12:53 White Blood Count 13.7 TH/MM3 Red Blood Count 3.03 MIL/MM3 Hemoglobin 9.4 GM/DL Hematocrit 27.2 % Mean Corpuscular Volume 89.7 FL Mean Corpuscular Hemoglobin 31.0 PG Mean Corpuscular Hemoglobin Concent 34.5 % Red Cell Distribution Width 16.4 % Platelet Count 106 TH/MM3 Mean Platelet Volume 7.6 FL Neutrophils (%) (Auto) 92.1 % Lymphocytes (%) (Auto) 1.8 % Monocytes (%) (Auto) 5.7 % Eosinophils (%) (Auto) 0.2 % Basophils (%) (Auto) 0.2 % Neutrophils # (Auto) 12.6 TH/MM3 Lymphocytes # (Auto) 0.3 TH/MM3 Monocytes # (Auto) 0.8 TH/MM3 Eosinophils # (Auto) 0.0 TH/MM3 Basophils # (Auto) 0.0 TH/MM3 CBC Comment AUTO DIFF Differential Total Cells Counted 100 Neutrophils % (Manual) 92 % Band Neutrophils % 6 % Monocytes % 2 % Neutrophils # (Manual) 13.4 TH/MM3 Nucleated Red Blood Cells 2 /100 WBC Differential Comment FINAL DIFF MANUAL Platelet Estimate LOW Platelet Morphology Comment NORMAL Basophilic Stippling FAINT Blood Urea Nitrogen 35 MG/DL Creatinine 1.08 MG/DL Random Glucose 92 MG/DL Total Protein 6.3 GM/DL Albumin 2.6 GM/DL Calcium Level 8.3 MG/DL Magnesium Level 1.9 MG/DL Alkaline Phosphatase 78 U/L Aspartate Amino Transf (AST/SGOT) 83 U/L Alanine Aminotransferase (ALT/SGPT) 99 U/L Total Bilirubin 1.2 MG/DL Sodium Level 144 MEQ/L Potassium Level 3.4 MEQ/L Chloride Level 103 MEQ/L Carbon Dioxide Level 33.8 MEQ/L Anion Gap 7 MEQ/L Estimat Glomerular Filtration Rate 52 ML/MIN Phosphorus Level 4.1 MG/DL Imaging Last 24 hours Impressions Chest X-Ray 03/03/17 0600 Signed Impressions: Service Date/Time: Friday, March 03, 2017 04:52 - CONCLUSION: Increasing partially consolidative infiltrates in the right upper and right lower lung. Persistent lobar consolidation left lower lobe. Kiet Rob MD Assessment and Plan Problem List: (1) PVD (peripheral vascular disease) ICD Codes: I73.9 - Peripheral vascular disease, unspecified (2) Anemia ICD Codes: D64.9 - Anemia, unspecified (3) Abdominal hematoma ICD Codes: S30.1XXA - Contusion of abdominal wall, initial encounter (4) Obesity ICD Codes: E66.9 - Obesity Status: Acute (5) SOB (shortness of breath) ICD Codes: R06.02 - SOB (shortness of breath) Status: Acute (6) Hx of coronary artery disease ICD Codes: Z86.79 - Personal history of other diseases of the circulatory system (7) Atrial fibrillation ICD Codes: I48.91 - Atrial fibrillation Status: Chronic (8) DM (diabetes mellitus) ICD Codes: E11.9 - DM (diabetes mellitus) Status: Chronic (9) Carotid stenosis ICD Codes: I65.29 - Occlusion and stenosis of unspecified carotid artery (10) History of four vessel coronary artery bypass graft ICD Codes: Z95.1 - Presence of aortocoronary bypass graft Assessment and Plan 1.) CAD - i could not image lyles, ow good flow to iw, lw, anterior wall with good wall motion but cant rule out lyles or lad disease therefore patient is moderate to high risk for noncardiac surgery, d/w Dr Cruz 2.) abdominal hematoma - rp bleed and groin hematoma ruled out, arterial injury and active bleeding from cath ruled out by angio 02/27/17, still requiring transfusion despite angiogram demonstrating no arterial injury or active bleeding suggesting bleeding is a local abdominal source, possibly due to lovenox injections, would explain why bleeding not tamponading as adipose tissue would lower resistance than rp or groin, still requiring transfusion and pressors but mental status good and u/o > 300/shift; d/w Dr Schafer 02/28/18 3.) PAF - in af rate controlled this am hr @ 85, ac held due to abdominal hematoma 4.) Carotid stenosis - surgery postponed due to abdominal hematoma 5.) Anemia - hgb stablelizing, creatinine improving, u/o increasing on lasix, pressors being weaned, continue to monitor hgb; hematoma evacuation per Dr Cruz 6.) hypoxia - with abnormal cxr - Dr Schafer managing Problem Qualifiers (1) Atrial fibrillation: Qualified Codes: I48.0 - Paroxysmal atrial fibrillation Macho Juarez MD Mar 03, 2017 14:09
[2017-03-03] MEDS: RESP: ALBUTEROL 2.5 MG/IPRATROPIUM 0.5 MG NEB (PRN) NEB (14:23)
--- NOTE | 2017-03-03 18:14 | HHI.CCPN ---
Subjective Brief History The lady certainly presented with symptoms that are reminiscent of a TIA, but the side of stenosis does not quite resemble the symptoms. However, it is hard to tell with this patient. Ultrasound and CT of the carotids is consistent with about 70% right internal carotid artery stenosis, about 50% left. There are other studies pending. At this point, it is quite hard to tell if the symptoms were due to the carotid stenosis or maybe cardiac event. The patient is on Coumadin for apparently DVT , not previous A. Fib so we will see how she does in the next few days and then decide on further course of therapy. There is definitely no acute stroke. The dictum is that patients with a 70% carotid artery stenosis even if asymptomatic should be considered for carotid endarterectomy for risk of stroke is high and is about 8-12% a year. This patient is symptomatic, but it is quite unclear whether the symptoms are really from the carotid. underwent yesterday cardiac catheterization which was a technically difficult apparently and developed a large anterior abdominal wall hematoma from the same She dropped her pressure and developed hemorrhagic shock. Was resuscitated and placed and surgical ICU At this point clearly surgery will not be performed Patient will be off Coumadin and will go from there 24 Hour Review/Hospital Course 02/27/17 Is noted the patient developed hemorrhagic shock yesterday evening and displayed large anterior abdominal wall hematoma This is now resolving and patient is hemodynamically stable Clearly any carotid surgery is now the question and this will be rescheduled at some later date as an outpatient Whether patient will need any surgical intervention on her vessel is questionable at this time but there is no blush that would indicate continuous bleeding Patient underwent successful arteriogram in Endo suite yet no clear source of bleeding was found The CT of the abdomen clearly reveals hemoglobin level in the collection so this is consistent with probably 8 or 9 units of blood Right now this is a contained space and it will tamponade off as long as it stays intraperitoneal area. If this would rupture intraperitoneally then of course patient would require surgical evacuation of this emergently In the best case scenario would keep hemoglobin up and this is going to stop on its own and then when all things are done we can always evacuate this collection later On the other hand if she continues to bleed surgery is always an option 02/28/17 Patient intubated and ventilated Remains on propofol sedation Hemoglobin has somewhat stabilized although patient did receive another 2 units of blood for a 2 g drop. At this point there is no active bleeding and this is simply recalibration of intravascular volume and hemodilution due to third space mobilization Will not do anything surgically at this point yet in next few days when the whole thing stabilizes and patient is doing better we will have to surgically evacuate this hematoma but looks otherwise this is going to get infected considering the huge mass of blood in the properitoneal space 03/02/17 Patient has improved significantly She is extubated on BiPAP mask at this time Abdomen is soft active bowel sounds and firmness in the lower abdomen is due to large preperitoneal hematoma Patient is holding her hemoglobin and bleeding has obviously stopped There is no way to leave this hematoma in the tissues fourth will clearly get infected due to the huge mass of protein IE blood. Patient remains on amiodarone drip. We'll give few days for patient to recover but she will have to go for washout and evacuation of this large collection Will take patient Thursday or to operating room for evacuation and washout of the preperitoneal hematoma 03/03/17 Patient remains on BiPAP mask Abdomen is soft active bowel sounds and lower abdomen is still distended and firm I discussed care with Dr. Wan and the is clearly would be advisable to do this surgery without intubating the patient but I do not believe that this is possible due to the huge size of this Patient scheduled for to undergo exploration and evacuation of the same Objective Vital Signs Date Time Temp Pulse Resp B/P (MAP) Pulse Ox O2 Delivery O2 Flow Rate FiO2 03/03/17 15:00 97.4 94 17 100/60 (73) 99 03/03/17 15:00 Bi-Pap 03/03/17 14:34 50 03/03/17 07:28 15.00 Intake and Output 03/03/17 03/03/17 03/04/17 08:00 16:00 00:00 Intake Total 300 ml 50 ml Output Total 2410 ml Balance -2110 ml 50 ml Result Diagram: 03/03/17 0340 03/03/17 0340 Imaging Last 24 hours Impressions Chest X-Ray 03/03/17 0600 Signed Impressions: Service Date/Time: Friday, March 03, 2017 04:52 - CONCLUSION: Increasing partially consolidative infiltrates in the right upper and right lower lung. Persistent lobar consolidation left lower lobe. MD Ottoniel Solorio Slobodan MD Mar 03, 2017 18:14
[2017-03-03] MEDS: ATORVASTATIN 40 MG TAB PO SCH (21:00)
[2017-03-03] MEDS: POTASSIUM CHLOR 40 MEQ PREMIX 100 ML IV PRN (23:31)
[2017-03-04] VITALS (18 sets, daily range): BP systolic 107–153; BP diastolic 69–89; PULSE 82–98; RESP 18–23; TEMP 97.7–98.4; O2SAT 88–99
[2017-03-04] MEDS: RESP: ALBUTEROL 2.5 MG/IPRATROPIUM 0.5 MG NEB (SCH) NEB ×6 (00:38→20:23)
[2017-03-04] MEDS: FUROSEMIDE 40 MG/4 ML VIAL IV PUSH SCH ×2 (02:41→14:59)
[2017-03-04] MEDS: HYDROmorphone HCL PF 2 MG/ML VIAL IV PUSH PRN ×4 (03:01→23:30)
[2017-03-04 05:33] LABS: AUTOMATED NEUTROPHIL # 10.7 TH/MM3 (1.8-7.7); BASOPHIL % 0.3 % (0.0-2.0); EOSINOPHIL % 0.1 % (0.0-4.0); HEMOGLOBIN 9.1 GM/DL (11.6-15.3); LYMPH % 2.4 % (9.0-44.0); LYMPHOCYTE # 0.3 TH/MM3 (1.0-4.8); MEAN CELL VOLUME 90.2 FL (80.0-100.0); MEAN CORPUSCULAR HEMOGLOBIN 30.3 PG (27.0-34.0); MEAN CORPUSCULAR HGB CONC 33.6 % (32.0-36.0); MEAN PLATELET VOLUME 7.1 FL (7.0-11.0); MONO % 7.5 % (0.0-8.0); MONOCYTE # 0.9 TH/MM3 (0-0.9); NEUT % 89.7 % (16.0-70.0); PLATELET COUNT 117 TH/MM3 (150-450); RED CELL DISTRIBUTION WIDTH 16.3 % (11.6-17.2)
[2017-03-04 05:54] LABS: ALBUMIN 2.6 GM/DL (3.4-5.0); ALT (GPT) 74 U/L (10-53); AST (GOT) 60 U/L (15-37); BICARBONATE 36.2 MEQ/L (21.0-32.0); BLOOD UREA NITROGEN 32 MG/DL (7-18); CALCIUM 8.6 MG/DL (8.5-10.1); CHLORIDE 102 MEQ/L (98-107); CREATININE 0.88 MG/DL (0.50-1.00); GLOMERULAR FILTRATION RATE 66 ML/MIN (>89); GLUCOSE,RANDOM 97 MG/DL (74-106); SODIUM (NA) 147 MEQ/L (136-145)
[2017-03-04 05:57] LABS: ALKALINE PHOSPHATASE 77 U/L (45-117); TOTAL BILIRUBIN ADULT 1.2 MG/DL (0.2-1.0); TOTAL PROTEIN 6.2 GM/DL (6.4-8.2)
[2017-03-04] MEDS: LEVOTHYROXINE SODIUM 100 MCG VIAL IV PUSH SCH (06:10)
[2017-03-04] MEDS: HYDROCORTISONE SOD SUCCINATE 100 MG VIAL IV SCH ×3 (06:11→22:43)
[2017-03-04] MEDS: POTASSIUM CHLOR 40 MEQ PREMIX 100 ML IV PRN (06:49)
[2017-03-04] MEDS: ISOSORBIDE MONONITRATE 30 MG TAB PO SCH (07:00)
[2017-03-04 07:06] LABS: BANDS 6 % (0-6); CORRECTED NUCLEATED RBC 4 /100 WBC (0-0); LYMPHOCYTES 5 % (9-44); MONOCYTES 5 % (0-8); MYELOCYTES 1 % (0-0); NEUTROPHIL # MANUAL DIFF 10.8 TH/MM3 (1.8-7.7); NUCLEATED RED BLOOD CELL 4 (0-0); POLYS (SEG NEUTROPHILS) 83 % (16-70)
[2017-03-04 07:07] LABS: OVALOCYTES 1+ (NORMAL)
--- NOTE | 2017-03-04 07:26 | HHI.CCPN ---
Subjective Remarks/Hospital Course 61-year-old female with a past medical history significant for CAD status post CABG, atrial fibrillation, diabetes mellitus, polycystic kidney disease, CHF ( echo with EF of 55-60% in 2015), hypertension, hyperlipidemia and hypothyroidism presents to the emergency department complaining of dizziness and falling. Her CT of the neck show 70% occlusive disease off right carotid artery and she was planned to undergo right carotid endarterectomy. Further vascular procedures she underwent elective cardiac catheterization that shows patent vessels without significant obstructive disease. Shortly after procedure patient developed severe hypotension and tachycardia with systolic blood pressure at 60s and significant decrease in hemoglobin. She was taken emergently to CT of the abdomen/aorta runoff, the didn't show any dissection or aneurysm however shows large hematoma of abdominal wall. SUBJ 02/27: Remains in profound shock. ON Levophed 20, Jaron 100, Vasopressin 0.04. Received total of 8 units of PRBC, 4 units of FFP to pack units of platelets and 2 cryo. Hb after 5U PRBC was 8.7 at 3 am. Discussed with vascular surgery Dr. Oliva re possible surgical intervention. Patient is also on chronic steroids prednisone 5 mg twice a day (for RA trial per patient). I will give 200 mg IV hydrocortisone STAT followed by 100 mg every 8 hours. Also change Synthroid to 75 g IV daily. Pain improved with Dilaudid. Will place on PRN Dilaudid. UO 400 ml overnight. Check bladder pressure 02/28: Remains intubated critically ill FiO2 at 60%. Remains on Jaron-Synephrine at 30 mcg/m, vasopressin at 0.04 international units per minute. Receive 2 units of PRBC for hemoglobin of 7.6 overnight. Today 9.3. Creatinine has increased to 2.14. Urine output 575 mg in 24 hours. 03/01: Remains critically ill on vasopressin. Received 2 units of PRBC for hemoglobin 7.6. Urine output increased with diuretics. 1.5 L in 24 hours, creatinine stable to slightly improved. Given Lasix 80 mg IV 1 now with potassium replacement. Start weaning trials again 03/02: Extubated yesterday but required BiPAP overnight. Becomes hypoxic and short of breath when BiPAP was weaned. Hemodynamically improved remains on 0.01 vasopressin. Hb 10. Urine output 3 L with Lasix creatinine improved to 1.6. Significant positive fluid balance. Lasix increased 03/03: Was on BiPAP overnight currently on nonrebreather. Maintaining saturation about 90%. Chest x-ray showing worsening infiltrate new extensive right-sided infiltrates persistent left lower lobe consolidation. Zyvox restarted. Creatinine Endo has improved from 1.6-1.08, white count has improved from 17.3-13.7. Urine output 3.7 L in 24 hours 03/04: Requiring BiPAP at night but FiO2 requirement has been reduced to 40%. Breathing appears more comfortable hemoglobin stable at 9.1. Urine output 4.1 L in 24 hours creatinine has come down to 0.9. At this time will wean to DC amiodarone start by mouth amiodarone start by mouth metoprolol change linezolid to by mouth. Dr. Cruz planning on abdominal hematoma evacuation later this week. Objective Vital Signs Date Time Temp Pulse Resp B/P (MAP) Pulse Ox O2 Delivery O2 Flow Rate FiO2 03/04/17 04:19 97 30 03/04/17 03:31 19 03/04/17 03:00 Bi-Pap 03/04/17 03:00 89 03/04/17 03:00 97.7 129/89 (102) 117/74 (88) 03/03/17 21:45 12.00 Intake and Output 03/04/17 03/04/17 03/05/17 08:00 16:00 00:00 Intake Total 301 ml Balance 301 ml Result Diagram: 03/04/17 0500 03/04/17 0500 Imaging Last 24 hours Impressions Chest X-Ray 02/26/17 1812 Signed Impressions: Service Date/Time: February 18:12 - CONCLUSION: Stable exam with cardiomegaly and left basilar atelectasis. Kiet Camarena Jr., MD Aorta CTA 02/26/17 0000 Signed Impressions: Service Date/Time: February 19:19 - CONCLUSION: 1. Large anterior abdominal wall hematoma. 2. No aortic dissection or aneurysm. 3. Changes involving the liver suggesting cirrhosis. 4. Cholelithiasis. 5. Bibasilar atelectasis. 6. Cardiomegaly. Kiet Camarena Jr., MD Objective Remarks GENERAL: Morbidly obese patient. On BiPAP, mild respiratory distress SKIN: Warm and dry. Ecchymosis lower abdomen HEAD: Normocephalic. ENT: BiPAP mask in place NECK: Supple, trachea midline. No JVD or lymphadenopathy. CARDIOVASCULAR: Atrial fibrillation rate controlled. Heart sounds are distant. On Amiodarone gtt-change to PO RESPIRATORY: Breath sounds equal bilaterally. Bilateral wheezing and coarse rhonchi in all lung aguilar GASTROINTESTINAL: Abdomen distended tender to palpation in the lower abdomen. Ecchymosis lower abdomen MUSCULOSKELETAL: No cyanosis : Ferguson in place with tea colored urine NEURO EXAM: Alert awake oriented. Follows commands. No focal deficits A/P Assessment and Plan Neuro: TIA - Minimize sedation. - Dilaudid and oxycodone when necessary for pain control - Previously planned CEA postponed indefinitely CVA/Heme: Hemorrhagic shock-resolving Large anterior abdominal wall/rectus sheath hematoma post cardiac catheterization Atrial fibrillation with RVR - Status post approximately 14 units PRBC, 4 units of FFP, 2 units of platelets , 2 cryo, including 2 units of PRBC - monitor hemoglobin, coags - Anterior abdominal wall hematoma on CTA. Discussed with vascular surgery Dr. Oliva, Dr. Whitley and Dr. Encarnacion. No active leak - Dr. Cruz planning on abdominal wall hematoma evacuation - Decrease lasix to 40 q12. Resume home aldactone 12.5 daily. Give single dose of Diamox (met alkalosis) - At home On chronic prednisone 5 mg twice a day. Continue stress dose steroids reduced to 50 mg IV every 8 hours 03/03/17 - Synthroid to IV 75 g daily-change home dose 200 g daily from 03/04/17 - Rate controlled, now NSR, On amiodarone gtt. resume amiodarone 03/04/17 DC infusion in one hour - Resume metoprolol at a lower dose 25 mg twice a day - Hold anticoagulation due to blood loss. Hold all antiplatelet therapy - 2D Echo Normal left ventricular size. LVEF 50-55%. Resp: Acute hypoxemic respiratory failure Acute COPD exacerbation Healthcare associated pneumonia - Intubated by anesthesia for angiography, Extubated 03/01 but requiring BiPAP PRN and night. - Hypoxemia improving, CXR still with bilateral infiltrates - DuoNeb every 4 hours and when necessary - Symbicort and Spiriva. Receiving steroids as hydrocortisone GI: Transaminitis-improving - Start clear liquid diet. IV Protonix - Abdominal wall hematoma management as above - Elevated liver enzymes secondary to shock-now improving : Acute on chronic kidney failure - Acute kidney failure secondary to ATN, steadily improving - IV Lasix as above, resume Aldactone 12.5 mg daily - Creatinine actually improving with forced diuresis ID Probable healthcare associated pneumonia - Continue Zosyn Zyvox - Cultures negative to date Endo: - Continue IV Synthroid DVT GI prophylaxis - Teds/SCDs - Hold pharmacological DVT prophylaxis due to acute blood loss - PPI Critical Care: Level 3 Remains critically ill with with hypoxemic respiratory failure, fluid overload, worsening healthcare associated pneumonia D/W Dr. Alcazar on 03/03/[address] Juarez 03/04/17 regarding respiratory status and proposed hematoma evacuation. CXR with bilateral infiltrates, though clinically somewhat improved. Will need GA for surgery and may need prolonged vent support post op Padmaja Wan MD Mar 04, 2017 07:26
[2017-03-04] MEDS: INSULIN ASPART SUPPLEMENTAL SCALE SQ SCH ×4 (08:00→20:51)
--- NOTE | 2017-03-04 08:01 | RADRPT ---
EXAM DATE/TIME: 03/04/2017 07:18 [facility] COMPARISON: CHEST SINGLE AP, March 03, 2017, 4:52. INDICATIONS : Respiratory Disease. MEDICAL HISTORY : Cerebrovascular disease. Chronic obstructive pulmonary disease. Cardiovascula rdiseaseDiabetes,thyroi d dis,hypertension SURGICAL HISTORY : CABG. Pacemaker. ENCOUNTER: Subsequent ACUITY: 2 weeks PAIN SCORE: 0/10 LOCATION: Bilateral chest FINDINGS: Stable left IJ central line. Stable AICD device. Redemonstration of patchy diffuse bilateral airspace disease slightly progressed at the right lung. Cardiac silhouette remains enlarged. Pulmonary vascul arity is indistinct. Remainder of the exam is unchanged. CONCLUSION: 1. Cardiomegaly with positive fluid balance. 2. Patchy diffuse bilateral airspace disease slightly progressed in the right lung. Sonu Esparza MD on March 04, 2017 at 7:56 Board Certified Radiologist. This report was verified electronically.
[2017-03-04] MEDS: TIOTROPIUM BROMIDE 18 MCG INH INH SCH (08:57)
[2017-03-04] MEDS: BUDESONIDE-FORMOTEROL 160/4.5 MCG INHALER INH SCH ×2 (08:57→20:49)
[2017-03-04] MEDS: SPIRONOLACTONE 25 MG TAB PO SCH (08:58)
[2017-03-04] MEDS: METOPROLOL TARTRATE 25 MG TAB PO SCH ×2 (08:58→20:50)
[2017-03-04] MEDS: PIPERACIL-TAZO 3.375 GM PREMIX 50 ML IV SCH ×3 (08:58→23:35)
[2017-03-04] MEDS: PANTOPRAZOLE SODIUM 40 MG VIAL IV PUSH SCH ×2 (08:59→20:50)
[2017-03-04] MEDS: AMIODARONE 200 MG TAB PO SCH (08:59)
[2017-03-04] MEDS: POTASSIUM CHLORIDE 20 MEQ CONTROLLED RELEASE TAB PO SCH ×2 (08:59→20:50)
[2017-03-04] MEDS: SODIUM CHLORIDE 0.9% FLUSH 10 ML FLUSH IV FLUSH SCH ×2 (09:01→23:29)
[2017-03-04] MEDS: LINEZOLID 600 MG TAB PO SCH ×2 (09:22→20:50)
--- NOTE | 2017-03-04 11:05 | HHI.IDPN ---
Note Infectious Disease Note Remains on O2 via NRM. Requires BIPAP also. Afebrile. Patient presented to [place] emergency department on 02/22 with generalized weakness. The patient reportedly was having problems with dizziness. PAST MEDICAL HISTORY: 1. hypertension 2. Hyperlipidemia 3. polycystic kidney disease 4. Hypothyroidism 5. coronary artery disease 6. history of coronary bypass graft surgery 7. atrial fibrillation status post ablation times four 8. AICD placement 9. Tonsillectomy 10. bilateral tubal ligation 11. Arthritis ALLERGIES VANCOMYCIN LEVAQUIN ERYTHROMYCIN AZITHROMYCIN CYCLOSPORIN MRI precaution. MEDICATIONS Current Medications Medications (Trade) Dose Ordered Sig/Alexa Route PRN Reason Start Time Stop Time Status Last Admin Dose Admin Aspirin (Aspirin) 325 mg DAILY PO 02/23/17 09:00 Future Hold 02/25/17 08:24 Insulin Aspart (NovoLOG SUPPLEMENTAL SCALE) 1 ACHS SQ 02/22/17 12:00 02/28/17 22:00 Dextrose (D50w (Vial) Inj) 50 ml UNSCH PRN IV PUSH HYPOGLYCEMIA-SEE COMMENTS 02/22/17 09:45 Glucagon (Glucagon Inj) 1 mg UNSCH PRN OTHER HYPOGLYCEMIA-SEE COMMENTS 02/22/17 09:45 Amiodarone HCl (Cordarone) 200 mg DAILY PO 02/23/17 09:00 Future hold 03/04/17 08:59 Atorvastatin Calcium (Lipitor) 40 mg HS PO 02/22/17 21:00 02/28/17 21:39 Bumetanide (Bumetanide) 1 mg DAILY PO 02/23/17 09:00 Future Hold Isosorbide Mononitrate (Imdur) 30 mg DAILY@0700 PO 02/23/17 07:00 02/26/17 09:19 Levothyroxine Sodium (Synthroid) 200 mcg DAILY@0600 PO 02/23/17 06:00 Future hold 03/01/17 06:15 Sacubitril/ Valsartan (Entresto 97-103 Mg) 1 tab BID PO 02/22/17 21:00 Future Hold 02/22/17 21:16 Spironolactone (Aldactone) 12.5 mg DAILY PO 02/23/17 09:00 Future hold 03/04/17 08:58 Venlafaxine HCl (Effexor Xr) 75 mg DAILY PO 02/23/17 09:00 Future Hold 03/03/17 08:53 Miscellaneous (Pill Splitter) 1 ea UNSCH PRN OTHER SEE LABEL COMMENTS 02/22/17 11:00 Acetaminophen/ Hydrocodone Bitart ([place] 5-325 Mg) 1 tab Q6H PRN PO PAIN 1-5 02/22/17 13:00 02/26/17 16:03 Prednisone (Deltasone) 5 mg BID PO 02/22/17 21:00 Future Hold 02/26/17 09:19 Sodium Chloride (NS Flush) 2 ml BID IV FLUSH 02/26/17 21:00 03/04/17 09:01 Sodium Chloride (NS Flush) 2 ml UNSCH PRN IV FLUSH FLUSH AFTER USING IV ACCESS 02/26/17 16:15 Terbutaline Sulfate (Brethine Inj) 1 mg UNSCH PRN SQ For Extravasation 02/26/17 22:00 Ondansetron HCl (Zofran Inj) 4 mg Q4H PRN IV PUSH NAUSEA OR VOMITING 02/26/17 23:00 Terbutaline Sulfate (Brethine Inj) 1 mg UNSCH PRN SQ FOR EXTRAVASATION PROTOCOL 02/27/17 00:15 Pantoprazole Sodium (Protonix Inj) 40 mg Q12H IV PUSH 02/27/17 08:00 03/04/17 08:59 Hydromorphone HCl (Dilaudid Pf Inj) 1 mg Q3H PRN IV PUSH Pain 6-10 02/27/17 07:15 03/04/17 08:38 Lorazepam (Ativan Inj) 0.5 mg Q2H PRN IV PUSH anxiety 02/27/17 07:15 Piperacillin Sod/ Tazobactam Sod 50 ml @ 100 mls/hr Q8H IV 02/28/17 08:00 03/04/17 08:58 Potassium Chloride (KCl) 20 meq Q12HR PO 03/01/17 21:00 03/04/17 08:59 Albuterol/ Ipratropium (Duoneb Neb) 1 ampule Q4HR NEB NEB 03/02/17 12:00 03/04/17 08:23 Albuterol/ Ipratropium (Duoneb Neb) 1 ampule Q2HR NEB PRN NEB SHORTNESS OF BREATH 03/02/17 08:15 03/03/17 14:23 Budesonide/ Formoterol Fumarate (Symbicort 160-4.5 Mcg Inh) 2 puff Q12HR INH 03/02/17 09:00 03/04/17 08:57 Tiotropium [place] (Spiriva Inh) 18 mcg DAILY INH 03/02/17 09:00 03/04/17 08:57 Hydrocortisone Sodium Succinate (SoluCORTEF INJ) 50 mg Q8HR IV 03/03/17 14:00 03/04/17 06:11 Potassium Chloride 100 ml @ 50 mls/hr Q2H PRN IV For Potassium 2.8 - 3.2 mEq/L 03/03/17 09:45 03/03/17 11:40 Potassium Chloride 100 ml @ 50 mls/hr Q2H PRN IV For Potassium 2.8 - 3.2 mEq/L 03/03/17 09:45 Potassium Bicarb/ Potassium Chloride (K-Lyte Cl Eff) 50 meq UNSCH PRN PO For Potassium 3.3 - 3.5 mEq/L 03/03/17 09:45 Potassium Chloride 100 ml @ 25 mls/hr UNSCH PRN IV For Potassium 3.3 - 3.5 mEq/L 03/03/17 09:45 03/04/17 06:49 Potassium Chloride 100 ml @ 50 mls/hr Q2H PRN IV For Potassium 3.3 - 3.5 mEq/L 03/03/17 09:45 Magnesium Sulfate 4 gm/Sodium Chloride 100 ml @ 50 mls/hr UNSCH PRN IV For Magnesium 0.9 - 1.1 mg/dL 03/03/17 09:45 Magnesium Oxide (Mag-Ox) 800 mg UNSCH PRN PO For Magnesium 1.2 - 1.6 mg/dL 03/03/17 09:45 Magnesium Sulfate 2 gm/Sodium Chloride 100 ml @ 50 mls/hr UNSCH PRN IV For Magnesium 1.2 - 1.6 mg/dL 03/03/17 09:45 Potassium Phosphate (K-Phos) 2,000 mg Q4H PRN PO For Phosphorus < 2.5 mg/dL 03/03/17 09:45 Sodium Phosphate 30 mmol/Sodium Chloride 250 ml @ 42 mls/hr UNSCH PRN IV For Phosphorus < 2.5 mg/dL 03/03/17 09:45 Potassium Phosphate (K-Phos) 2,000 mg UNSCH PRN PO/TUBE SEE LABEL COMMENTS 03/03/17 09:45 Potassium Phosphate 30 mmol/ Sodium Chloride 260 ml @ 42 mls/hr UNSCH PRN IV SEE LABEL COMMENTS 03/03/17 09:45 Furosemide (Lasix Inj) 40 mg Q12H IV PUSH 03/04/17 14:00 Metoprolol Tartrate (Lopressor) 25 mg BID PO 03/04/17 09:00 03/04/17 08:58 Linezolid (Zyvox) 600 mg Q12HR PO 03/04/17 09:00 03/06/17 21:01 03/04/17 09:22 OBJECTIVE: Vital Signs Date Time Temp Pulse Resp B/P (MAP) Pulse Ox O2 Delivery O2 Flow Rate FiO2 03/04/17 09:23 18 03/04/17 08:23 89 Venturi Mask 6.00 50 03/04/17 04:19 97 30 03/04/17 03:00 95 Bi-Pap 35 03/04/17 03:00 89 03/04/17 03:00 97.7 82 23 129/89 (102) 95 117/74 (88) 03/04/17 00:40 96 35 03/03/17 23:38 79 115/65 03/03/17 23:00 98.2 87 20 122/68 (86) 95 99/67 (78) 03/03/17 23:00 90 03/03/17 23:00 95 Bi-Pap 45 03/03/17 22:50 99 45 03/03/17 21:45 99 Partial Rebreather 12.00 03/03/17 20:16 99 45 03/03/17 19:00 99 Bi-Pap 45 03/03/17 19:00 97.6 93 24 127/78 (94) 99 148/88 (108) 03/03/17 19:00 87 03/03/17 16:30 98 50 03/03/17 15:00 97.4 94 17 100/60 (73) 99 03/03/17 15:00 92 03/03/17 15:00 94 Bi-Pap 03/03/17 14:34 95 50 Laboratory Tests Test 03/03/17 03:40 03/04/17 05:00 White Blood Count 13.7 TH/MM3 12.0 TH/MM3 Red Blood Count 3.03 MIL/MM3 3.00 MIL/MM3 Hemoglobin 9.4 GM/DL 9.1 GM/DL Hematocrit 27.2 % 27.0 % Mean Corpuscular Volume 89.7 FL 90.2 FL Mean Corpuscular Hemoglobin 31.0 PG 30.3 PG Mean Corpuscular Hemoglobin Concent 34.5 % 33.6 % Red Cell Distribution Width 16.4 % 16.3 % Platelet Count 106 TH/MM3 117 TH/MM3 Mean Platelet Volume 7.6 FL 7.1 FL Neutrophils (%) (Auto) 92.1 % 89.7 % Lymphocytes (%) (Auto) 1.8 % 2.4 % Monocytes (%) (Auto) 5.7 % 7.5 % Eosinophils (%) (Auto) 0.2 % 0.1 % Basophils (%) (Auto) 0.2 % 0.3 % Neutrophils # (Auto) 12.6 TH/MM3 10.7 TH/MM3 Lymphocytes # (Auto) 0.3 TH/MM3 0.3 TH/MM3 Monocytes # (Auto) 0.8 TH/MM3 0.9 TH/MM3 Eosinophils # (Auto) 0.0 TH/MM3 0.0 TH/MM3 Basophils # (Auto) 0.0 TH/MM3 0.0 TH/MM3 CBC Comment AUTO DIFF AUTO DIFF Differential Total Cells Counted 100 100 Neutrophils % (Manual) 92 % 83 % Band Neutrophils % 6 % 6 % Monocytes % 2 % 5 % Neutrophils # (Manual) 13.4 TH/MM3 10.8 TH/MM3 Nucleated Red Blood Cells 2 /100 WBC 4 /100 WBC Differential Comment FINAL DIFF MANUAL FINAL DIFF MANUAL Platelet Estimate LOW LOW Platelet Morphology Comment NORMAL NORMAL Basophilic Stippling FAINT Lymphocytes % 5 % Myelocytes 1 % Ovalocytes 1+ Laboratory Tests Test 03/03/17 03:40 03/03/17 12:53 03/03/17 18:50 03/04/17 05:00 Blood Urea Nitrogen 35 MG/DL 32 MG/DL Creatinine 1.08 MG/DL 0.88 MG/DL Random Glucose 92 MG/DL 97 MG/DL Total Protein 6.3 GM/DL 6.2 GM/DL Albumin 2.6 GM/DL 2.6 GM/DL Calcium Level 8.3 MG/DL 8.6 MG/DL Magnesium Level 1.9 MG/DL Alkaline Phosphatase 78 U/L 77 U/L Aspartate Amino Transf (AST/SGOT) 83 U/L 60 U/L Alanine Aminotransferase (ALT/SGPT) 99 U/L 74 U/L Total Bilirubin 1.2 MG/DL 1.2 MG/DL Sodium Level 144 MEQ/L 147 MEQ/L Potassium Level 3.4 MEQ/L 3.8 MEQ/L 3.5 MEQ/L 3.4 MEQ/L Chloride Level 103 MEQ/L 102 MEQ/L Carbon Dioxide Level 33.8 MEQ/L 36.2 MEQ/L Anion Gap 7 MEQ/L 9 MEQ/L Estimat Glomerular Filtration Rate 52 ML/MIN 66 ML/MIN Phosphorus Level 4.1 MG/DL Microbiology Date/Time Source Procedure Growth Status 03/02/17 09:15 Sputum Expectorated Sputum Gram Stain - Final Resulted 03/02/17 09:15 Sputum Expectorated Sputum Sputum Culture - Preliminary Resulted IMAGING: Chest X-Ray 03/04/17 0000 Signed Impressions: Service Date/Time: Saturday, March 04, 2017 07:18 - CONCLUSION: 1. Cardiomegaly with positive fluid balance. 2. Patchy diffuse bilateral airspace disease slightly progressed in the right lung. Sonu Esparza MD Chest X-Ray 03/03/17 0600 Signed Impressions: Service Date/Time: Friday, March 03, 2017 04:52 - CONCLUSION: Increasing partially consolidative infiltrates in the right upper and right lower lung. Persistent lobar consolidation left lower lobe. Kiet Rob MD Chest X-Ray 03/02/17 0600 Signed Impressions: Service Date/Time: Thursday, March 02, 2017 03:47 - CONCLUSION: There is no subsegmental consolidative infiltrate in the right upper lobe. Persistent left lower lobe consolidation. Kiet Rob MD Angiography 02/27/17 1219 Signed Impressions: Service Date/Time: Monday, February 27, 2017 11:03 - CONCLUSION: No evidence of arterial injury and no findings to indicate site of bleeding to account for anterior abdominal wall hematoma. Savage Aranda MD Aorta CTA 02/26/17 0000 Signed Impressions: Service Date/Time: February 19:19 - CONCLUSION: 1. Large anterior abdominal wall hematoma. 2. No aortic dissection or aneurysm. 3. Changes involving the liver suggesting cirrhosis. 4. Cholelithiasis. 5. Bibasilar atelectasis. 6. Cardiomegaly. Kiet Camarena Jr., MD Neck CTA 02/22/17 0000 Signed Impressions: Service Date/Time: Wednesday, February 22, 2017 06:25 - CONCLUSION: 1. Prominent atherosclerotic disease at carotid bulbs resulting in approximately 70%% stenosis of the proximal right ICA at its origin and approximately 40-50%% stenosis of the proximal left ICA. 2. Moderate grade stenosis of the proximal left common carotid artery at its origin. Gurdeep Laird MD Head CTA 02/22/17 0000 Signed Impressions: Service Date/Time: Wednesday, February 22, 2017 06:25 - CONCLUSION: No evidence of proximal high-grade stenosis or occlusion. Gurdeep Laird MD Head CT 02/22/17 0000 Signed Impressions: Service Date/Time: Wednesday, February 22, 2017 06:25 - CONCLUSION: Normal examination for a patient of this age. No significant change has occurred. Billy Weems MD PHYSICAL EXAMINATION: GENERAL: No acute distress. HEAD, EYES, EARS, NOSE, AND THROAT: EOMI. No icterus. Moist mucosa. NECK: No swelling or adenopathy. LUNGS: Bilateral rhonchi. HEART: Irregular rate and rhythm. No murmurs audible. ABDOMEN: Distended. Soft, non tender. EXTREMITIES: No clubbing or cyanosis or edema. SKIN: No diffuse rash. NEUROLOGIC: Unable to fully assess. Moves all extremities. PSYCHIATRIC: Unable to assess. IMPRESSION 1. Hemorrhagic shock. Patient developed hypotension and tachycardia and abdominal wall hematoma. 2. Leukocytosis. 3. Acute kidney disease. The patient received contrast for radiographic study and also she was hypotensive and may have had also hypotensive insult to the kidney. improving. 4. Lung infiltrate. ? VAP. 5. Multiple antibiotic allergies. RECOMMENDATIONS 1. Continue piperacillin/tazobactam. 2. Monitor the sputum culture. 3. continue Zyvox. Monitor the platelet count on the Zyvox. 4. Monitor the white count. 5. Monitor clinical status. Discussed with patient's son and RN. Antonio Tobar MD Mar 04, 2017 11:04
--- NOTE | 2017-03-04 14:26 | PD.CARD.PN ---
Subjective Subjective Remarks extubated, on bipap, verbal in nad Objective Medications Current Medications Medications (Trade) Dose Ordered Sig/Alexa Route Start Time Stop Time Status Last Admin (Aspirin) 325 mg DAILY PO 02/23/17 09:00 Future Hold 02/25/17 08:24 (NovoLOG SUPPLEMENTAL SCALE) 1 ACHS SQ 02/22/17 12:00 02/28/17 22:00 (D50w (Vial) Inj) 50 ml UNSCH PRN IV PUSH 02/22/17 09:45 (Glucagon Inj) 1 mg UNSCH PRN OTHER 02/22/17 09:45 (Cordarone) 200 mg DAILY PO 02/23/17 09:00 Future hold 03/04/17 08:59 (Lipitor) 40 mg HS PO 02/22/17 21:00 02/28/17 21:39 (Bumetanide) 1 mg DAILY PO 02/23/17 09:00 Future Hold (Imdur) 30 mg DAILY@0700 PO 02/23/17 07:00 02/26/17 09:19 (Synthroid) 200 mcg DAILY@0600 PO 02/23/17 06:00 Future hold 03/01/17 06:15 (Entresto 97-103 Mg) 1 tab BID PO 02/22/17 21:00 Future Hold 02/22/17 21:16 (Aldactone) 12.5 mg DAILY PO 02/23/17 09:00 Future hold 03/04/17 08:58 (Effexor Xr) 75 mg DAILY PO 02/23/17 09:00 Future Hold 03/03/17 08:53 (Pill Splitter) 1 ea UNSCH PRN OTHER 02/22/17 11:00 ([place] 5-325 Mg) 1 tab Q6H PRN PO 02/22/17 13:00 02/26/17 16:03 (Deltasone) 5 mg BID PO 02/22/17 21:00 Future Hold 02/26/17 09:19 (NS Flush) 2 ml BID IV FLUSH 02/26/17 21:00 03/04/17 09:01 (NS Flush) 2 ml UNSCH PRN IV FLUSH 02/26/17 16:15 (Brethine Inj) 1 mg UNSCH PRN SQ 02/26/17 22:00 (Zofran Inj) 4 mg Q4H PRN IV PUSH 02/26/17 23:00 (Brethine Inj) 1 mg UNSCH PRN SQ 02/27/17 00:15 (Protonix Inj) 40 mg Q12H IV PUSH 02/27/17 08:00 03/04/17 08:59 (Dilaudid Pf Inj) 1 mg Q3H PRN IV PUSH 02/27/17 07:15 03/04/17 11:32 (Ativan Inj) 0.5 mg Q2H PRN IV PUSH 02/27/17 07:15 Piperacillin Sod/ Tazobactam Sod 50 ml @ 100 mls/hr Q8H IV 02/28/17 08:00 03/04/17 08:58 (KCl) 20 meq Q12HR PO 03/01/17 21:00 03/04/17 08:59 (Duoneb Neb) 1 ampule Q4HR NEB NEB 03/02/17 12:00 03/04/17 11:32 (Duoneb Neb) 1 ampule Q2HR NEB PRN NEB 03/02/17 08:15 03/03/17 14:23 (Symbicort 160-4.5 Mcg Inh) 2 puff Q12HR INH 03/02/17 09:00 03/04/17 08:57 (Spiriva Inh) 18 mcg DAILY INH 03/02/17 09:00 03/04/17 08:57 (SoluCORTEF INJ) 50 mg Q8HR IV 03/03/17 14:00 03/04/17 06:11 Potassium Chloride 100 ml @ 50 mls/hr Q2H PRN IV 03/03/17 09:45 03/03/17 11:40 Potassium Chloride 100 ml @ 50 mls/hr Q2H PRN IV 03/03/17 09:45 (K-Lyte Cl Eff) 50 meq UNSCH PRN PO 03/03/17 09:45 Potassium Chloride 100 ml @ 25 mls/hr UNSCH PRN IV 03/03/17 09:45 03/04/17 06:49 Potassium Chloride 100 ml @ 50 mls/hr Q2H PRN IV 03/03/17 09:45 Magnesium Sulfate 4 gm/Sodium Chloride 100 ml @ 50 mls/hr UNSCH PRN IV 03/03/17 09:45 (Mag-Ox) 800 mg UNSCH PRN PO 03/03/17 09:45 Magnesium Sulfate 2 gm/Sodium Chloride 100 ml @ 50 mls/hr UNSCH PRN IV 03/03/17 09:45 (K-Phos) 2,000 mg Q4H PRN PO 03/03/17 09:45 Sodium Phosphate 30 mmol/Sodium Chloride 250 ml @ 42 mls/hr UNSCH PRN IV 03/03/17 09:45 (K-Phos) 2,000 mg UNSCH PRN PO/TUBE 03/03/17 09:45 Potassium Phosphate 30 mmol/ Sodium Chloride 260 ml @ 42 mls/hr UNSCH PRN IV 03/03/17 09:45 (Lasix Inj) 40 mg Q12H IV PUSH 03/04/17 14:00 (Lopressor) 25 mg BID PO 03/04/17 09:00 03/04/17 08:58 (Zyvox) 600 mg Q12HR PO 03/04/17 09:00 03/06/17 21:01 03/04/17 09:22 Vital Signs / I&O Vital Signs Date Time Temp Pulse Resp B/P (MAP) Pulse Ox O2 Delivery O2 Flow Rate FiO2 03/04/17 12:07 92 40 03/04/17 12:02 20 03/04/17 11:00 96 03/04/17 11:00 95 Non-Rebreather 15.00 03/04/17 11:00 98.4 82 22 117/69 (85) 95 113/73 (86) 03/04/17 08:23 89 Venturi Mask 6.00 50 03/04/17 07:00 95 03/04/17 07:00 98.2 85 19 116/74 (88) 95 111/72 (85) 03/04/17 07:00 95 Bi-Pap 40 03/04/17 04:19 97 30 03/04/17 03:00 95 Bi-Pap 35 03/04/17 03:00 89 03/04/17 03:00 97.7 82 23 129/89 (102) 95 117/74 (88) 03/04/17 00:40 96 35 03/03/17 23:38 79 115/65 03/03/17 23:00 98.2 87 20 122/68 (86) 95 99/67 (78) 03/03/17 23:00 90 03/03/17 23:00 95 Bi-Pap 45 03/03/17 22:50 99 45 03/03/17 21:45 99 Partial Rebreather 12.00 03/03/17 20:16 99 45 03/03/17 19:00 99 Bi-Pap 45 03/03/17 19:00 97.6 93 24 127/78 (94) 99 148/88 (108) 03/03/17 19:00 87 03/03/17 16:30 98 50 03/03/17 15:00 97.4 94 17 100/60 (73) 99 03/03/17 15:00 92 03/03/17 15:00 94 Bi-Pap 03/03/17 14:34 95 50 I/O 03/03/17 03/03/17 03/03/17 03/04/17 03/04/17 03/04/17 07:00 15:00 23:00 07:00 15:00 23:00 Intake Total 300 ml 350 ml 610 ml 471 ml 230 ml Output Total 2410 ml 1700 ml 2400 ml Balance -2110 ml 350 ml -1090 ml -1929 ml 230 ml Intake Oral 0 ml 0 ml 120 ml IV Total 300 ml 350 ml 610 ml 351 ml 230 ml Output Urine Total 2410 ml 1700 ml 2400 ml # Bowel Movements 0 0 Physical Exam GENERAL: SKIN: Warm and dry. HEAD: Normocephalic. EYES: No scleral icterus. No injection or drainage. NECK: Supple, trachea midline. No JVD or lymphadenopathy. CARDIOVASCULAR: Regular rate and rhythm without murmurs, gallops, or rubs. RESPIRATORY: Breath sounds equal bilaterally. No accessory muscle use. GASTROINTESTINAL: Abdomen soft, non-tender, nondistended. MUSCULOSKELETAL: No cyanosis, or edema. BACK: Nontender without obvious deformity. No CVA tenderness. Laboratory Laboratory Tests Test 03/03/17 18:50 03/04/17 05:00 Potassium Level 3.5 MEQ/L 3.4 MEQ/L White Blood Count 12.0 TH/MM3 Red Blood Count 3.00 MIL/MM3 Hemoglobin 9.1 GM/DL Hematocrit 27.0 % Mean Corpuscular Volume 90.2 FL Mean Corpuscular Hemoglobin 30.3 PG Mean Corpuscular Hemoglobin Concent 33.6 % Red Cell Distribution Width 16.3 % Platelet Count 117 TH/MM3 Mean Platelet Volume 7.1 FL Neutrophils (%) (Auto) 89.7 % Lymphocytes (%) (Auto) 2.4 % Monocytes (%) (Auto) 7.5 % Eosinophils (%) (Auto) 0.1 % Basophils (%) (Auto) 0.3 % Neutrophils # (Auto) 10.7 TH/MM3 Lymphocytes # (Auto) 0.3 TH/MM3 Monocytes # (Auto) 0.9 TH/MM3 Eosinophils # (Auto) 0.0 TH/MM3 Basophils # (Auto) 0.0 TH/MM3 CBC Comment AUTO DIFF Differential Total Cells Counted 100 Neutrophils % (Manual) 83 % Band Neutrophils % 6 % Lymphocytes % 5 % Monocytes % 5 % Neutrophils # (Manual) 10.8 TH/MM3 Myelocytes 1 % Nucleated Red Blood Cells 4 /100 WBC Differential Comment FINAL DIFF MANUAL Platelet Estimate LOW Platelet Morphology Comment NORMAL Ovalocytes 1+ Blood Urea Nitrogen 32 MG/DL Creatinine 0.88 MG/DL Random Glucose 97 MG/DL Total Protein 6.2 GM/DL Albumin 2.6 GM/DL Calcium Level 8.6 MG/DL Alkaline Phosphatase 77 U/L Aspartate Amino Transf (AST/SGOT) 60 U/L Alanine Aminotransferase (ALT/SGPT) 74 U/L Total Bilirubin 1.2 MG/DL Sodium Level 147 MEQ/L Chloride Level 102 MEQ/L Carbon Dioxide Level 36.2 MEQ/L Anion Gap 9 MEQ/L Estimat Glomerular Filtration Rate 66 ML/MIN Imaging Last 24 hours Impressions Chest X-Ray 03/04/17 0000 Signed Impressions: Service Date/Time: Saturday, March 04, 2017 07:18 - CONCLUSION: 1. Cardiomegaly with positive fluid balance. 2. Patchy diffuse bilateral airspace disease slightly progressed in the right lung. Sonu Esparza MD Assessment and Plan Problem List: (1) PVD (peripheral vascular disease) ICD Codes: I73.9 - Peripheral vascular disease, unspecified (2) Anemia ICD Codes: D64.9 - Anemia, unspecified (3) Abdominal hematoma ICD Codes: S30.1XXA - Contusion of abdominal wall, initial encounter (4) Obesity ICD Codes: E66.9 - Obesity Status: Acute (5) SOB (shortness of breath) ICD Codes: R06.02 - SOB (shortness of breath) Status: Acute (6) Hx of coronary artery disease ICD Codes: Z86.79 - Personal history of other diseases of the circulatory system (7) Atrial fibrillation ICD Codes: I48.91 - Atrial fibrillation Status: Chronic (8) DM (diabetes mellitus) ICD Codes: E11.9 - DM (diabetes mellitus) Status: Chronic (9) Carotid stenosis ICD Codes: I65.29 - Occlusion and stenosis of unspecified carotid artery (10) History of four vessel coronary artery bypass graft ICD Codes: Z95.1 - Presence of aortocoronary bypass graft Assessment and Plan 1.) CAD - i could not image lyles, ow good flow to iw, lw, anterior wall with good wall motion but cant rule out lyles or lad disease therefore patient is moderate to high risk for noncardiac surgery, d/w Dr Cruz 2.) abdominal hematoma - rp bleed and groin hematoma ruled out, arterial injury and active bleeding from cath ruled out by angio 02/27/17, still requiring transfusion despite angiogram demonstrating no arterial injury or active bleeding suggesting bleeding is a local abdominal source, possibly due to lovenox injections, would explain why bleeding not tamponading as adipose tissue would lower resistance than rp or groin, still requiring transfusion and pressors but mental status good and u/o > 300/shift; d/w Dr Schafer 02/28/18 3.) PAF - in af rate controlled this am hr @ 85, ac held due to abdominal hematoma 4.) Carotid stenosis - surgery postponed due to abdominal hematoma 5.) Anemia - hgb stablelizing, creatinine improving, u/o increasing on lasix, pressors being weaned, continue to monitor hgb; hematoma evacuation per Dr Cruz 6.) hypoxia - with abnormal cxr - Dr Schafer managing, on bipap Problem Qualifiers (1) Atrial fibrillation: Qualified Codes: I48.0 - Paroxysmal atrial fibrillation Macho Juarez MD Mar 04, 2017 14:26
--- NOTE | 2017-03-04 15:12 | PD.CAR.PN ---
CVT Progress Note Subjective/Hospital Course: referral received full consult TF J Patient stable now Neurologically remains intact The dizziness and vertigo she had is now gone in this more and more looks like a TIA Neurology consult greatly appreciated At this point agree with neurologist and I will address carotid artery while patient still in the hospital Patient is known to cardiac problems and I reviewed her echocardiogram Cardiology consulted, spoken to Dr Juarez. All things equal for right carotid endarterectomy after cardiac cath, likely Thursday or Thursday02/26/17 Patient doing better now Vertigo is gone She underwent cardiac catheterization today which reveals patent coronary vessels and fairly normal intracardiac pressures Have discussed this with Dr. Juarez At this point patient is a moderate high risk for carotid endarterectomy In face of 70% stenosis in neurologic symptoms I'm hard pressed not to offer patient to surgery as an option Patient for right carotid endarterectomy tomorrow 03/04/17 Patient now on face mask and was on BiPAP mask yesterday Abdomen is soft active bowel sounds and lower abdomen is still distended and firm I discussed care with Dr. Wan and the is clearly would be advisable to do this surgery without intubating the patient but I do not believe that this is possible due to the huge size of this Considering patient's precarious respiratory status we decided to wait another day and take the patient to the operating room Thursday for washout Objective: Vital Signs Date Time Temp Pulse Resp B/P (MAP) Pulse Ox O2 Delivery O2 Flow Rate FiO2 03/04/17 14:06 98 40 03/04/17 12:07 92 40 03/04/17 12:02 20 03/04/17 11:00 96 03/04/17 11:00 95 Non-Rebreather 15.00 03/04/17 11:00 98.4 82 22 117/69 (85) 95 113/73 (86) 03/04/17 08:23 89 Venturi Mask 6.00 50 03/04/17 07:00 95 03/04/17 07:00 98.2 85 19 116/74 (88) 95 111/72 (85) 03/04/17 07:00 95 Bi-Pap 40 03/04/17 04:19 97 30 03/04/17 03:00 95 Bi-Pap 35 03/04/17 03:00 89 03/04/17 03:00 97.7 82 23 129/89 (102) 95 117/74 (88) 03/04/17 00:40 96 35 03/03/17 23:38 79 115/65 03/03/17 23:00 98.2 87 20 122/68 (86) 95 99/67 (78) 03/03/17 23:00 90 03/03/17 23:00 95 Bi-Pap 45 03/03/17 22:50 99 45 03/03/17 21:45 99 Partial Rebreather 12.00 03/03/17 20:16 99 45 03/03/17 19:00 99 Bi-Pap 45 03/03/17 19:00 97.6 93 24 127/78 (94) 99 148/88 (108) 03/03/17 19:00 87 03/03/17 16:30 98 50 Labs: Laboratory Tests Test 03/04/17 05:00 White Blood Count 12.0 TH/MM3 (4.0-11.0) Red Blood Count 3.00 MIL/MM3 (4.00-5.30) Hemoglobin 9.1 GM/DL (11.6-15.3) Hematocrit 27.0 % (35.0-46.0) Mean Corpuscular Volume 90.2 FL (80.0-100.0) Mean Corpuscular Hemoglobin 30.3 PG (27.0-34.0) Mean Corpuscular Hemoglobin Concent 33.6 % (32.0-36.0) Red Cell Distribution Width 16.3 % (11.6-17.2) Platelet Count 117 TH/MM3 (150-450) Mean Platelet Volume 7.1 FL (7.0-11.0) Neutrophils (%) (Auto) 89.7 % (16.0-70.0) Lymphocytes (%) (Auto) 2.4 % (9.0-44.0) Monocytes (%) (Auto) 7.5 % (0.0-8.0) Eosinophils (%) (Auto) 0.1 % (0.0-4.0) Basophils (%) (Auto) 0.3 % (0.0-2.0) Neutrophils # (Auto) 10.7 TH/MM3 (1.8-7.7) Lymphocytes # (Auto) 0.3 TH/MM3 (1.0-4.8) Monocytes # (Auto) 0.9 TH/MM3 (0-0.9) Eosinophils # (Auto) 0.0 TH/MM3 (0-0.4) Basophils # (Auto) 0.0 TH/MM3 (0-0.2) CBC Comment AUTO DIFF Differential Total Cells Counted 100 Neutrophils % (Manual) 83 % (16-70) Band Neutrophils % 6 % (0-6) Lymphocytes % 5 % (9-44) Monocytes % 5 % (0-8) Neutrophils # (Manual) 10.8 TH/MM3 (1.8-7.7) Myelocytes 1 % (0-0) Nucleated Red Blood Cells 4 /100 WBC (0-0) Differential Comment FINAL DIFF MANUAL Platelet Estimate LOW (NORMAL) Platelet Morphology Comment NORMAL (NORMAL) Ovalocytes 1+ (NORMAL) Blood Urea Nitrogen 32 MG/DL (7-18) Creatinine 0.88 MG/DL (0.50-1.00) Random Glucose 97 MG/DL (74-106) Total Protein 6.2 GM/DL (6.4-8.2) Albumin 2.6 GM/DL (3.4-5.0) Calcium Level 8.6 MG/DL (8.5-10.1) Alkaline Phosphatase 77 U/L (45-117) Aspartate Amino Transf (AST/SGOT) 60 U/L (15-37) Alanine Aminotransferase (ALT/SGPT) 74 U/L (10-53) Total Bilirubin 1.2 MG/DL (0.2-1.0) Sodium Level 147 MEQ/L (136-145) Potassium Level 3.4 MEQ/L (3.5-5.1) Chloride Level 102 MEQ/L (98-107) Carbon Dioxide Level 36.2 MEQ/L (21.0-32.0) Anion Gap 9 MEQ/L (5-15) Estimat Glomerular Filtration Rate 66 ML/MIN (>89) Result Diagram: 03/04/17 0500 03/04/17 0500 (1) PVD (peripheral vascular disease) (2) Anemia (3) Abdominal hematoma (4) Obesity (5) SOB (shortness of breath) (6) Hx of coronary artery disease (7) Atrial fibrillation (8) DM (diabetes mellitus) (9) Carotid stenosis (10) History of four vessel coronary artery bypass graft Problem Qualifiers (1) Atrial fibrillation: Qualified Codes: I48.0 - Paroxysmal atrial fibrillation Chin Alcazar MD Mar 04, 2017 15:12
[2017-03-04] MEDS: ATORVASTATIN 40 MG TAB PO SCH (20:50)
[2017-03-05] VITALS (15 sets, daily range): BP systolic 109–153; BP diastolic 65–91; PULSE 80–83; RESP 18–22; TEMP 97.8–98.6; O2SAT 79–98
[2017-03-05] MEDS: RESP: ALBUTEROL 2.5 MG/IPRATROPIUM 0.5 MG NEB (SCH) NEB ×6 (00:18→20:30)
[2017-03-05] MEDS: FUROSEMIDE 40 MG/4 ML VIAL IV PUSH SCH ×2 (04:05→14:39)
[2017-03-05 04:10] LABS: HEMATOCRIT 28.5 % (35.0-46.0); HEMOGLOBIN 9.5 GM/DL (11.6-15.3); MEAN CELL VOLUME 90.8 FL (80.0-100.0); MEAN CORPUSCULAR HEMOGLOBIN 30.4 PG (27.0-34.0); MEAN CORPUSCULAR HGB CONC 33.4 % (32.0-36.0); MEAN PLATELET VOLUME 6.9 FL (7.0-11.0); PLATELET COUNT 144 TH/MM3 (150-450); RED BLOOD COUNT 3.14 MIL/MM3 (4.00-5.30); RED CELL DISTRIBUTION WIDTH 16.6 % (11.6-17.2); WHITE BLOOD COUNT 13.3 TH/MM3 (4.0-11.0)
[2017-03-05] MEDS: HYDROmorphone HCL PF 2 MG/ML VIAL IV PUSH PRN ×2 (04:18→20:11)
[2017-03-05 04:30] LABS: ALBUMIN 2.7 GM/DL (3.4-5.0); ALT (GPT) 61 U/L (10-53); AST (GOT) 47 U/L (15-37); BICARBONATE 37.6 MEQ/L (21.0-32.0); BLOOD UREA NITROGEN 33 MG/DL (7-18); CALCIUM 8.7 MG/DL (8.5-10.1); CHLORIDE 103 MEQ/L (98-107); CREATININE 0.87 MG/DL (0.50-1.00); GLOMERULAR FILTRATION RATE 66 ML/MIN (>89); GLUCOSE,RANDOM 105 MG/DL (74-106); MAGNESIUM 1.9 MG/DL (1.5-2.5); SODIUM (NA) 147 MEQ/L (136-145)
[2017-03-05 04:33] LABS: ALKALINE PHOSPHATASE 84 U/L (45-117); TOTAL BILIRUBIN ADULT 1.6 MG/DL (0.2-1.0); TOTAL PROTEIN 6.5 GM/DL (6.4-8.2)
--- NOTE | 2017-03-05 05:09 | RADRPT ---
EXAM DATE/TIME: 03/05/2017 04:06 [facility] COMPARISON: CHEST SINGLE AP, March 04, 2017, 7:18. INDICATIONS : Shortness of breath, possible pulmonary disease. MEDICAL HISTORY : Cerebrovascular disease. Chronic obstructive pulmonary disease. Cardiovascular disease. Diabetes Hypertension SURGICAL HISTORY : CABG. Pacemaker. ENCOUNTER: Subsequent ACUITY: 2 weeks PAIN SCORE: 0/10 LOCATION: Bilateral chest FINDINGS: Left internal jugular catheter tip projected at the origin of the superior vena cava. Improved infil trates in the right lung and persistent consolidation in the left mid and lower lung also delineation of the entire left hemidiaphragm. Stable cardiomegaly. CONCLUSION: 1. Persistent left lower lobe consolidation. 2. Improving infiltrates in the right. Kiet Rbo MD on March 05, 2017 at 5:06 Board Certified Radiologist. This report was verified electronically.
[2017-03-05] MEDS: LEVOTHYROXINE SODIUM 200 MCG TAB PO SCH (06:27)
[2017-03-05] MEDS: HYDROCORTISONE SOD SUCCINATE 100 MG VIAL IV SCH ×3 (06:28→22:00)
[2017-03-05] MEDS: ISOSORBIDE MONONITRATE 30 MG TAB PO SCH (06:29)
[2017-03-05] MEDS: ALPRAZolam 0.25 MG TAB PO PRN (07:26)
--- NOTE | 2017-03-05 07:30 | HHI.CCPN ---
Subjective Remarks/Hospital Course 61-year-old female with a past medical history significant for CAD status post CABG, atrial fibrillation, diabetes mellitus, polycystic kidney disease, CHF ( echo with EF of 55-60% in 2015), hypertension, hyperlipidemia and hypothyroidism presents to the emergency department complaining of dizziness and falling. Her CT of the neck show 70% occlusive disease off right carotid artery and she was planned to undergo right carotid endarterectomy. Further vascular procedures she underwent elective cardiac catheterization that shows patent vessels without significant obstructive disease. Shortly after procedure patient developed severe hypotension and tachycardia with systolic blood pressure at 60s and significant decrease in hemoglobin. She was taken emergently to CT of the abdomen/aorta runoff, the didn't show any dissection or aneurysm however shows large hematoma of abdominal wall. SUBJ 02/27: Remains in profound shock. ON Levophed 20, Jaron 100, Vasopressin 0.04. Received total of 8 units of PRBC, 4 units of FFP to pack units of platelets and 2 cryo. Hb after 5U PRBC was 8.7 at 3 am. Discussed with vascular surgery Dr. Oliva re possible surgical intervention. Patient is also on chronic steroids prednisone 5 mg twice a day (for RA trial per patient). I will give 200 mg IV hydrocortisone STAT followed by 100 mg every 8 hours. Also change Synthroid to 75 g IV daily. Pain improved with Dilaudid. Will place on PRN Dilaudid. UO 400 ml overnight. Check bladder pressure 02/28: Remains intubated critically ill FiO2 at 60%. Remains on Jaron-Synephrine at 30 mcg/m, vasopressin at 0.04 international units per minute. Receive 2 units of PRBC for hemoglobin of 7.6 overnight. Today 9.3. Creatinine has increased to 2.14. Urine output 575 mg in 24 hours. 03/01: Remains critically ill on vasopressin. Received 2 units of PRBC for hemoglobin 7.6. Urine output increased with diuretics. 1.5 L in 24 hours, creatinine stable to slightly improved. Given Lasix 80 mg IV 1 now with potassium replacement. Start weaning trials again 03/02: Extubated yesterday but required BiPAP overnight. Becomes hypoxic and short of breath when BiPAP was weaned. Hemodynamically improved remains on 0.01 vasopressin. Hb 10. Urine output 3 L with Lasix creatinine improved to 1.6. Significant positive fluid balance. Lasix increased 03/03: Was on BiPAP overnight currently on nonrebreather. Maintaining saturation about 90%. Chest x-ray showing worsening infiltrate new extensive right-sided infiltrates persistent left lower lobe consolidation. Zyvox restarted. Creatinine Endo has improved from 1.6-1.08, white count has improved from 17.3-13.7. Urine output 3.7 L in 24 hours 03/04: Requiring BiPAP at night but FiO2 requirement has been reduced to 40%. Breathing appears more comfortable hemoglobin stable at 9.1. Urine output 4.1 L in 24 hours creatinine has come down to 0.9. At this time will wean to DC amiodarone start by mouth amiodarone start by mouth metoprolol change linezolid to by mouth. Dr. Cruz planning on abdominal hematoma evacuation later this week. 03/05: Objective Vital Signs Date Time Temp Pulse Resp B/P (MAP) Pulse Ox O2 Delivery O2 Flow Rate FiO2 03/05/17 06:20 95 High Flow Nasal Cannula 25.00 50 03/05/17 05:00 18 03/05/17 03:00 97.8 81 153/91 (111) 122/75 (91) Intake and Output 03/05/17 03/05/17 03/06/17 08:00 16:00 00:00 Intake Total 50 ml Output Total 900 ml Balance -850 ml Result Diagram: 03/05/17 0340 03/05/17 0340 Other Results Microbiology Date/Time Source Procedure Growth Status 03/02/17 09:15 Sputum Expectorated Sputum Gram Stain - Final Complete 03/02/17 09:15 Sputum Culture - Final Escherichia Coli Complete Imaging Last 24 hours Impressions Chest X-Ray 02/26/17 1812 Signed Impressions: Service Date/Time: February 18:12 - CONCLUSION: Stable exam with cardiomegaly and left basilar atelectasis. Kiet Camarena Jr., MD Aorta CTA 02/26/17 0000 Signed Impressions: Service Date/Time: February 19:19 - CONCLUSION: 1. Large anterior abdominal wall hematoma. 2. No aortic dissection or aneurysm. 3. Changes involving the liver suggesting cirrhosis. 4. Cholelithiasis. 5. Bibasilar atelectasis. 6. Cardiomegaly. Kiet Camarena Jr., MD Objective Remarks GENERAL: Morbidly obese patient. On BiPAP, mild respiratory distress SKIN: Warm and dry. Ecchymosis lower abdomen HEAD: Normocephalic. ENT: BiPAP mask in place NECK: Supple, trachea midline. No JVD or lymphadenopathy. CARDIOVASCULAR: Atrial fibrillation rate controlled. Heart sounds are distant. On Amiodarone gtt-change to PO RESPIRATORY: Breath sounds equal bilaterally. Bilateral wheezing and coarse rhonchi in all lung aguilar GASTROINTESTINAL: Abdomen distended tender to palpation in the lower abdomen. Ecchymosis lower abdomen MUSCULOSKELETAL: No cyanosis : Ferguson in place with tea colored urine NEURO EXAM: Alert awake oriented. Follows commands. No focal deficits A/P Assessment and Plan Neuro: TIA - Minimize sedation. - Dilaudid and oxycodone when necessary for pain control - Previously planned CEA postponed indefinitely CVA/Heme: Hemorrhagic shock-resolving Large anterior abdominal wall/rectus sheath hematoma post cardiac catheterization Atrial fibrillation with RVR - Status post approximately 14 units PRBC, 4 units of FFP, 2 units of platelets , 2 cryo, including 2 units of PRBC - monitor hemoglobin, coags - Anterior abdominal wall hematoma on CTA. Discussed with vascular surgery Dr. Oliva, Dr. Whitley and Dr. Encarnacion. No active leak - Dr. Cruz planning on abdominal wall hematoma evacuation - Decrease lasix to 40 q12. Resume home aldactone 12.5 daily. Give single dose of Diamox (met alkalosis) - At home On chronic prednisone 5 mg twice a day. Continue stress dose steroids reduced to 50 mg IV every 8 hours 03/03/17 - Synthroid to IV 75 g daily-change home dose 200 g daily from 03/04/17 - Rate controlled, now NSR, On amiodarone gtt. resume amiodarone 03/04/17 DC infusion in one hour - Resume metoprolol at a lower dose 25 mg twice a day - Hold anticoagulation due to blood loss. Hold all antiplatelet therapy - 2D Echo Normal left ventricular size. LVEF 50-55%. Resp: Acute hypoxemic respiratory failure Acute COPD exacerbation Healthcare associated pneumonia - Intubated by anesthesia for angiography, Extubated 03/01 but requiring BiPAP PRN and night. - Hypoxemia improving, CXR still with bilateral infiltrates - DuoNeb every 4 hours and when necessary - Symbicort and Spiriva. Receiving steroids as hydrocortisone GI: Transaminitis-improving - Start clear liquid diet. IV Protonix - Abdominal wall hematoma management as above - Elevated liver enzymes secondary to shock-now improving : Acute on chronic kidney failure - Acute kidney failure secondary to ATN, steadily improving - IV Lasix as above, resume Aldactone 12.5 mg daily - Creatinine actually improving with forced diuresis ID Probable healthcare associated pneumonia - Continue Zosyn Zyvox - Cultures negative to date Endo: - Continue IV Synthroid DVT GI prophylaxis - Teds/SCDs - Hold pharmacological DVT prophylaxis due to acute blood loss - PPI Critical Care: Level 3 Remains critically ill with with hypoxemic respiratory failure, fluid overload, worsening healthcare associated pneumonia D/W Dr. Alcazar on 03/03/[address] Juarez 03/04/17 regarding respiratory status and proposed hematoma evacuation. CXR with bilateral infiltrates, though clinically somewhat improved. Will need GA for surgery and may need prolonged vent support post op Padmaja Wan MD Mar 05, 2017 07:30
--- NOTE | 2017-03-05 07:42 | HHI.CCPN ---
Subjective Remarks/Hospital Course 61-year-old female with a past medical history significant for CAD status post CABG, atrial fibrillation, diabetes mellitus, polycystic kidney disease, CHF ( echo with EF of 55-60% in 2015), hypertension, hyperlipidemia and hypothyroidism presents to the emergency department complaining of dizziness and falling. Her CT of the neck show 70% occlusive disease off right carotid artery and she was planned to undergo right carotid endarterectomy. Further vascular procedures she underwent elective cardiac catheterization that shows patent vessels without significant obstructive disease. Shortly after procedure patient developed severe hypotension and tachycardia with systolic blood pressure at 60s and significant decrease in hemoglobin. She was taken emergently to CT of the abdomen/aorta runoff, the didn't show any dissection or aneurysm however shows large hematoma of abdominal wall. SUBJ 02/27: Remains in profound shock. ON Levophed 20, Jaron 100, Vasopressin 0.04. Received total of 8 units of PRBC, 4 units of FFP to pack units of platelets and 2 cryo. Hb after 5U PRBC was 8.7 at 3 am. Discussed with vascular surgery Dr. Oliva re possible surgical intervention. Patient is also on chronic steroids prednisone 5 mg twice a day (for RA trial per patient). I will give 200 mg IV hydrocortisone STAT followed by 100 mg every 8 hours. Also change Synthroid to 75 g IV daily. Pain improved with Dilaudid. Will place on PRN Dilaudid. UO 400 ml overnight. Check bladder pressure 02/28: Remains intubated critically ill FiO2 at 60%. Remains on Jaron-Synephrine at 30 mcg/m, vasopressin at 0.04 international units per minute. Receive 2 units of PRBC for hemoglobin of 7.6 overnight. Today 9.3. Creatinine has increased to 2.14. Urine output 575 mg in 24 hours. 03/01: Remains critically ill on vasopressin. Received 2 units of PRBC for hemoglobin 7.6. Urine output increased with diuretics. 1.5 L in 24 hours, creatinine stable to slightly improved. Given Lasix 80 mg IV 1 now with potassium replacement. Start weaning trials again 03/02: Extubated yesterday but required BiPAP overnight. Becomes hypoxic and short of breath when BiPAP was weaned. Hemodynamically improved remains on 0.01 vasopressin. Hb 10. Urine output 3 L with Lasix creatinine improved to 1.6. Significant positive fluid balance. Lasix increased 03/03: Was on BiPAP overnight currently on nonrebreather. Maintaining saturation about 90%. Chest x-ray showing worsening infiltrate new extensive right-sided infiltrates persistent left lower lobe consolidation. Zyvox restarted. Creatinine Endo has improved from 1.6-1.08, white count has improved from 17.3-13.7. Urine output 3.7 L in 24 hours 03/04: Requiring BiPAP at night but FiO2 requirement has been reduced to 40%. Breathing appears more comfortable hemoglobin stable at 9.1. Urine output 4.1 L in 24 hours creatinine has come down to 0.9. At this time will wean to DC amiodarone start by mouth amiodarone start by mouth metoprolol change linezolid to by mouth. Dr. Cruz planning on abdominal hematoma evacuation later this week. 03/05: Sitting up in bed on high flow nasal cannula at 50% FiO2. Breathing slightly improved. Sputum culture 03/02/17 growing Escherichia coli which is multidrug necessary. Discontinue Zosyn and start Invanz 1 g daily. DC Zyvox tomorrow. Continue IV Lasix given additional dose of Diamox 500 mg IV x1 Objective Vital Signs Date Time Temp Pulse Resp B/P (MAP) Pulse Ox O2 Delivery O2 Flow Rate FiO2 03/05/17 06:20 95 High Flow Nasal Cannula 25.00 50 03/05/17 05:00 18 03/05/17 03:00 97.8 81 153/91 (111) 122/75 (91) Intake and Output 03/05/17 03/05/17 03/06/17 08:00 16:00 00:00 Intake Total 50 ml Output Total 900 ml Balance -850 ml Result Diagram: 03/05/17 0340 03/05/17 0340 Other Results Microbiology Date/Time Source Procedure Growth Status 03/02/17 09:15 Sputum Expectorated Sputum Gram Stain - Final Complete 03/02/17 09:15 Sputum Culture - Final Escherichia Coli Complete Imaging Last 24 hours Impressions Chest X-Ray 02/26/17 1812 Signed Impressions: Service Date/Time: February 18:12 - CONCLUSION: Stable exam with cardiomegaly and left basilar atelectasis. Kiet Camarena Jr., MD Aorta CTA 02/26/17 0000 Signed Impressions: Service Date/Time: February 19:19 - CONCLUSION: 1. Large anterior abdominal wall hematoma. 2. No aortic dissection or aneurysm. 3. Changes involving the liver suggesting cirrhosis. 4. Cholelithiasis. 5. Bibasilar atelectasis. 6. Cardiomegaly. Kiet Camarena Jr., MD Objective Remarks GENERAL: Morbidly obese patient. On high flow nasal cannula, mild respiratory distress SKIN: Warm and dry. Ecchymosis lower abdomen HEAD: Normocephalic. ENT: Hi Rgeg NC in place NECK: Supple, trachea midline. No JVD or lymphadenopathy. CARDIOVASCULAR: NSR with occasional PVCs. Heart sounds are distant. RESPIRATORY: Breath sounds equal bilaterally. Mild Bilateral wheezing and coarse rhonchi in all lung aguilar GASTROINTESTINAL: Abdomen distended tender to palpation in the lower abdomen. Ecchymosis lower abdomen MUSCULOSKELETAL: No cyanosis : Ferguson in place with tea colored urine NEURO EXAM: Alert awake oriented. Follows commands. No focal deficits A/P Assessment and Plan Neuro: TIA - Xanax 0.25 mg every 6 hours when necessary for anxiety - Dilaudid and oxycodone when necessary for pain control - Previously planned CEA postponed indefinitely CVA/Heme: Hemorrhagic shock-resolved Large anterior abdominal wall/rectus sheath hematoma post cardiac catheterization Atrial fibrillation with RVR, no wNSR - Status post approximately 14 units PRBC, 4 units of FFP, 2 units of platelets , 2 cryo, including 2 units of PRBC - Monitor hemoglobin, coags - Anterior abdominal wall hematoma on CTA. No active leak - Dr. Cruz planning on abdominal wall hematoma evacuation tentatively 03/06/17 if respiratory status permits - Lasix to 40 q12. Resumed home aldactone 12.5 daily 03/04. Give Diamox 500 mg IV secodn dose (met alkalosis) - At home On chronic prednisone 5 mg twice a day. Continue stress dose steroids reduced to 50 mg IV every 8 hours 03/03/17 - Synthroid to IV 75 g daily-changed to home dose 200 g daily from 03/04/17 - NSR, On amiodarone 200 mg po daily form 03/04/17 after infusion was discontinued - Metoprolol at a lower dose 25 mg twice a day - Hold anticoagulation due to blood loss. Hold all antiplatelet therapy - 2D Echo Normal left ventricular size. LVEF 50-55%. Resp: Acute hypoxemic respiratory failure Acute COPD exacerbation Healthcare associated pneumonia/ MDR E Coli - Intubated by anesthesia for angiography, Extubated 03/01 but requiring BiPAP PRN and night. - Hypoxemia improving, CXR resolving slowly improving infiltrates - Tolerating high flow nasal cannula today - DuoNeb every 4 hours and when necessary - Symbicort and Spiriva. Receiving steroids as hydrocortisone GI: Transaminitis-improving - Clear liquid diet, advance as tolerated. IV Protonix - Abdominal wall hematoma management as above - Elevated liver enzymes secondary to shock-now improving : Acute on chronic kidney failure - Acute kidney failure secondary to ATN, steadily improving - IV Lasix, Diamox as above, Aldactone 12.5 mg daily - Creatinine actually improving with diuresis ID Healthcare associated pneumonia with MDR E Coli - DC Zosyn, start Invanz 1 g daily 03/05/17 - DC Zyvox 03/06/17 - ID Dr Tobar Endo: - Continue Synthroid 200 g daily DVT GI prophylaxis - Teds/SCDs - Hold pharmacological DVT prophylaxis due to acute blood loss - PPI Critical Care: Level 3 Remains critically ill with with hypoxemic respiratory failure, fluid overload, worsening healthcare associated pneumonia, with now showing signs of improvement Padmaja Wan MD Mar 05, 2017 07:42
[2017-03-05] MEDS ORDERED: MISCELLANEOUS PHARMACY INFORMATION XX PRN (07:45)
[2017-03-05] MEDS ORDERED: ASP: Path resistant to other antimicrobials, culture proven PRN (07:45)
[2017-03-05] MEDS: INSULIN ASPART SUPPLEMENTAL SCALE SQ SCH ×4 (07:51→21:00)
[2017-03-05 08:58] LABS: CORRECTED NUCLEATED RBC 3 /100 WBC (0-0); LYMPHOCYTES 1 % (9-44); MONOCYTES 6 % (0-8); NEUTROPHIL # MANUAL DIFF 12.4 TH/MM3 (1.8-7.7); NUCLEATED RED BLOOD CELL 3 (0-0); POLYS (SEG NEUTROPHILS) 93 % (16-70)
[2017-03-05] MEDS: ERTAPENEM INJ 1,000 MG in SODIUM CHLORIDE 0.9% INJ 100 ML IV SCH (09:00)
[2017-03-05] MEDS: TIOTROPIUM BROMIDE 18 MCG INH INH SCH (09:00)
[2017-03-05] MEDS: LINEZOLID 600 MG TAB PO SCH ×2 (09:00→20:50)
[2017-03-05] MEDS: PANTOPRAZOLE SODIUM 40 MG VIAL IV PUSH SCH ×2 (09:08→20:50)
[2017-03-05] MEDS: BUDESONIDE-FORMOTEROL 160/4.5 MCG INHALER INH SCH ×2 (09:08→20:51)
[2017-03-05] MEDS: SPIRONOLACTONE 25 MG TAB PO SCH (09:09)
[2017-03-05] MEDS: POTASSIUM CHLORIDE 20 MEQ CONTROLLED RELEASE TAB PO SCH ×2 (09:09→20:50)
[2017-03-05] MEDS: METOPROLOL TARTRATE 25 MG TAB PO SCH ×2 (09:09→20:50)
[2017-03-05] MEDS: AMIODARONE 200 MG TAB PO SCH (09:09)
[2017-03-05] MEDS: SODIUM CHLORIDE 0.9% FLUSH 10 ML FLUSH IV FLUSH SCH ×2 (09:09→20:51)
--- NOTE | 2017-03-05 10:20 | PD.CARD.PN ---
Subjective Subjective Remarks extubated, on high flow nasal canula, verbal in nad Objective Medications Current Medications Medications (Trade) Dose Ordered Sig/Alexa Route Start Time Stop Time Status Last Admin (Aspirin) 325 mg DAILY PO 02/23/17 09:00 Future Hold 02/25/17 08:24 (NovoLOG SUPPLEMENTAL SCALE) 1 ACHS SQ 02/22/17 12:00 02/28/17 22:00 (D50w (Vial) Inj) 50 ml UNSCH PRN IV PUSH 02/22/17 09:45 (Glucagon Inj) 1 mg UNSCH PRN OTHER 02/22/17 09:45 (Cordarone) 200 mg DAILY PO 02/23/17 09:00 Future hold 03/05/17 09:09 (Lipitor) 40 mg HS PO 02/22/17 21:00 03/04/17 20:50 (Bumetanide) 1 mg DAILY PO 02/23/17 09:00 Future Hold (Imdur) 30 mg DAILY@0700 PO 02/23/17 07:00 03/05/17 06:29 (Synthroid) 200 mcg DAILY@0600 PO 02/23/17 06:00 Future hold 03/05/17 06:27 (Entresto 97-103 Mg) 1 tab BID PO 02/22/17 21:00 Future Hold 02/22/17 21:16 (Aldactone) 12.5 mg DAILY PO 02/23/17 09:00 Future hold 03/05/17 09:09 (Effexor Xr) 75 mg DAILY PO 02/23/17 09:00 Future Hold 03/03/17 08:53 (Pill Splitter) 1 ea UNSCH PRN OTHER 02/22/17 11:00 ([place] 5-325 Mg) 1 tab Q6H PRN PO 02/22/17 13:00 02/26/17 16:03 (Deltasone) 5 mg BID PO 02/22/17 21:00 Future Hold 02/26/17 09:19 (NS Flush) 2 ml BID IV FLUSH 02/26/17 21:00 03/05/17 09:09 (NS Flush) 2 ml UNSCH PRN IV FLUSH 02/26/17 16:15 (Brethine Inj) 1 mg UNSCH PRN SQ 02/26/17 22:00 (Zofran Inj) 4 mg Q4H PRN IV PUSH 02/26/17 23:00 (Brethine Inj) 1 mg UNSCH PRN SQ 02/27/17 00:15 (Protonix Inj) 40 mg Q12H IV PUSH 02/27/17 08:00 03/05/17 09:08 (Dilaudid Pf Inj) 1 mg Q3H PRN IV PUSH 02/27/17 07:15 03/05/17 04:18 (KCl) 20 meq Q12HR PO 03/01/17 21:00 03/05/17 09:09 (Duoneb Neb) 1 ampule Q4HR NEB NEB 03/02/17 12:00 03/05/17 08:03 (Duoneb Neb) 1 ampule Q2HR NEB PRN NEB 03/02/17 08:15 03/03/17 14:23 (Symbicort 160-4.5 Mcg Inh) 2 puff Q12HR INH 03/02/17 09:00 03/05/17 09:08 (Spiriva Inh) 18 mcg DAILY INH 03/02/17 09:00 03/04/17 08:57 (SoluCORTEF INJ) 50 mg Q8HR IV 03/03/17 14:00 03/05/17 06:28 Potassium Chloride 100 ml @ 50 mls/hr Q2H PRN IV 03/03/17 09:45 03/03/17 11:40 Potassium Chloride 100 ml @ 50 mls/hr Q2H PRN IV 03/03/17 09:45 (K-Lyte Cl Eff) 50 meq UNSCH PRN PO 03/03/17 09:45 Potassium Chloride 100 ml @ 25 mls/hr UNSCH PRN IV 03/03/17 09:45 03/04/17 06:49 Potassium Chloride 100 ml @ 50 mls/hr Q2H PRN IV 03/03/17 09:45 Magnesium Sulfate 4 gm/Sodium Chloride 100 ml @ 50 mls/hr UNSCH PRN IV 03/03/17 09:45 (Mag-Ox) 800 mg UNSCH PRN PO 03/03/17 09:45 Magnesium Sulfate 2 gm/Sodium Chloride 100 ml @ 50 mls/hr UNSCH PRN IV 03/03/17 09:45 (K-Phos) 2,000 mg Q4H PRN PO 03/03/17 09:45 Sodium Phosphate 30 mmol/Sodium Chloride 250 ml @ 42 mls/hr UNSCH PRN IV 03/03/17 09:45 (K-Phos) 2,000 mg UNSCH PRN PO/TUBE 03/03/17 09:45 Potassium Phosphate 30 mmol/ Sodium Chloride 260 ml @ 42 mls/hr UNSCH PRN IV 03/03/17 09:45 (Lasix Inj) 40 mg Q12H IV PUSH 03/04/17 14:00 03/05/17 04:05 (Lopressor) 25 mg BID PO 03/04/17 09:00 03/05/17 09:09 (Zyvox) 600 mg Q12HR PO 03/04/17 09:00 03/06/17 21:01 03/05/17 09:00 (Xanax) 0.25 mg Q6H PRN PO 03/05/17 06:45 03/05/17 07:26 (ASP Crit: Path resist to other, cult proven) 1 UNSCH X1 PRN .XX 03/05/17 07:45 03/06/17 07:44 ([facility]) 1 UNSCH X1 PRN XX 03/05/17 07:45 03/06/17 07:44 Ertapenem 1000 mg/ Sodium Chloride 100 ml @ 200 mls/hr Q24H IV 03/05/17 09:00 03/05/17 09:00 Vital Signs / I&O Vital Signs Date Time Temp Pulse Resp B/P (MAP) Pulse Ox O2 Delivery O2 Flow Rate FiO2 03/05/17 10:10 79 High Flow Nasal Cannula 25.00 100 03/05/17 08:03 89 High Flow Nasal Cannula 25.00 50 03/05/17 08:00 80 03/05/17 08:00 99 Nasal Cannula 25.00 50 03/05/17 08:00 98.0 80 20 123/86 (98) 94 117/71 (86) 03/05/17 06:20 95 High Flow Nasal Cannula 25.00 50 03/05/17 05:00 18 03/05/17 04:08 98 30 03/05/17 03:00 97.8 81 20 153/91 (111) 94 122/75 (91) 03/05/17 03:00 81 03/05/17 03:00 94 Bi-Pap 30 03/05/17 00:55 94 30 03/04/17 23:30 88 30 03/04/17 23:00 97.9 95 18 153/83 (106) 89 128/75 (92) 03/04/17 23:00 97 Bi-Pap 30 03/04/17 23:00 95 03/04/17 22:30 89 Nasal Cannula 40.00 55 03/04/17 22:30 94 High Flow Nasal Cannula 40.00 55 03/04/17 22:14 98 30 03/04/17 20:20 99 35 03/04/17 20:20 99 BiPAP 35 03/04/17 19:00 98.2 96 22 123/85 (98) 98 114/71 (85) 03/04/17 19:00 96 03/04/17 19:00 98 Bi-Pap 50 03/04/17 18:38 92 50 03/04/17 16:41 98 Non-Rebreather 15.00 100 03/04/17 15:53 98 40 03/04/17 15:00 98 Bi-Pap 03/04/17 15:00 98.3 94 20 127/78 (94) 98 107/73 (84) 03/04/17 15:00 98 03/04/17 14:06 98 40 03/04/17 12:07 92 40 03/04/17 11:00 96 03/04/17 11:00 95 Non-Rebreather 15.00 03/04/17 11:00 98.4 82 22 117/69 (85) 95 113/73 (86) I/O 03/04/17 03/04/17 03/04/17 03/05/17 03/05/17 03/05/17 07:00 15:00 23:00 07:00 15:00 23:00 Intake Total 471 ml 230 ml 240 ml 50 ml 50 ml Output Total 2400 ml 900 ml 900 ml Balance -1929 ml 230 ml -660 ml -850 ml 50 ml Intake Oral 120 ml 240 ml 50 ml IV Total 351 ml 230 ml 50 ml Output Urine Total 2400 ml 900 ml 900 ml # Bowel Movements 1 1 Physical Exam GENERAL: SKIN: Warm and dry. HEAD: Normocephalic. EYES: No scleral icterus. No injection or drainage. NECK: Supple, trachea midline. No JVD or lymphadenopathy. CARDIOVASCULAR: Regular rate and rhythm without murmurs, gallops, or rubs. RESPIRATORY: Breath sounds equal bilaterally. No accessory muscle use. GASTROINTESTINAL: Abdomen soft, non-tender, nondistended. MUSCULOSKELETAL: No cyanosis, or edema. BACK: Nontender without obvious deformity. No CVA tenderness. Laboratory Laboratory Tests Test 03/04/17 16:45 03/05/17 03:40 Potassium Level 3.5 MEQ/L 3.6 MEQ/L White Blood Count 13.3 TH/MM3 Red Blood Count 3.14 MIL/MM3 Hemoglobin 9.5 GM/DL Hematocrit 28.5 % Mean Corpuscular Volume 90.8 FL Mean Corpuscular Hemoglobin 30.4 PG Mean Corpuscular Hemoglobin Concent 33.4 % Red Cell Distribution Width 16.6 % Platelet Count 144 TH/MM3 Mean Platelet Volume 6.9 FL CBC Comment AUTO DIFF Differential Total Cells Counted 100 Neutrophils % (Manual) 93 % Lymphocytes % 1 % Monocytes % 6 % Neutrophils # (Manual) 12.4 TH/MM3 Nucleated Red Blood Cells 3 /100 WBC Differential Comment FINAL DIFF MANUAL Platelet Estimate LOW Platelet Morphology Comment NORMAL Blood Urea Nitrogen 33 MG/DL Creatinine 0.87 MG/DL Random Glucose 105 MG/DL Total Protein 6.5 GM/DL Albumin 2.7 GM/DL Calcium Level 8.7 MG/DL Magnesium Level 1.9 MG/DL Alkaline Phosphatase 84 U/L Aspartate Amino Transf (AST/SGOT) 47 U/L Alanine Aminotransferase (ALT/SGPT) 61 U/L Total Bilirubin 1.6 MG/DL Sodium Level 147 MEQ/L Chloride Level 103 MEQ/L Carbon Dioxide Level 37.6 MEQ/L Anion Gap 6 MEQ/L Estimat Glomerular Filtration Rate 66 ML/MIN Imaging Last 24 hours Impressions Chest X-Ray 03/05/17 0600 Signed Impressions: Service Date/Time: February 04:06 - CONCLUSION: 1. Persistent left lower lobe consolidation. 2. Improving infiltrates in the right. Kiet Rob MD Assessment and Plan Problem List: (1) PVD (peripheral vascular disease) ICD Codes: I73.9 - Peripheral vascular disease, unspecified (2) Anemia ICD Codes: D64.9 - Anemia, unspecified (3) Abdominal hematoma ICD Codes: S30.1XXA - Contusion of abdominal wall, initial encounter (4) Obesity ICD Codes: E66.9 - Obesity Status: Acute (5) SOB (shortness of breath) ICD Codes: R06.02 - SOB (shortness of breath) Status: Acute (6) Hx of coronary artery disease ICD Codes: Z86.79 - Personal history of other diseases of the circulatory system (7) Atrial fibrillation ICD Codes: I48.91 - Atrial fibrillation Status: Chronic (8) DM (diabetes mellitus) ICD Codes: E11.9 - DM (diabetes mellitus) Status: Chronic (9) Carotid stenosis ICD Codes: I65.29 - Occlusion and stenosis of unspecified carotid artery (10) History of four vessel coronary artery bypass graft ICD Codes: Z95.1 - Presence of aortocoronary bypass graft Assessment and Plan 1.) CAD - i could not image lyles, ow good flow to iw, lw, anterior wall with good wall motion but cant rule out lyles or lad disease therefore patient is moderate to high risk for noncardiac surgery, d/w Dr Cruz 2.) abdominal hematoma - rp bleed and groin hematoma ruled out, arterial injury and active bleeding from cath ruled out by angio 02/27/17, still requiring transfusion despite angiogram demonstrating no arterial injury or active bleeding suggesting bleeding is a local abdominal source, possibly due to lovenox injections, would explain why bleeding not tamponading as adipose tissue would lower resistance than rp or groin, still requiring transfusion and pressors but mental status good and u/o > 300/shift; d/w Dr Schafer 02/28/18 3.) PAF - in af rate controlled this am hr @ 85, ac held due to abdominal hematoma 4.) Carotid stenosis - surgery postponed due to abdominal hematoma 5.) Anemia - hgb stablelizing, creatinine improving, u/o increasing on lasix, pressors being weaned, continue to monitor hgb; hematoma evacuation per Dr Cruz 6.) hypoxia - with abnormal cxr - Dr Schafer managing, on bipap Problem Qualifiers (1) Atrial fibrillation: Qualified Codes: I48.0 - Paroxysmal atrial fibrillation Macho Juarez MD Mar 05, 2017 10:20
--- NOTE | 2017-03-05 11:16 | HHI.IDPN ---
Note Infectious Disease Note Remains on O2 via nasal canula, Hi flow. Awake and alert. Denies SOB but says she does not feel good. has wet cough. Afebrile. Has good urine output. Sputum culture has e. coli Resistant to Zosyn. Patient presented to [place] emergency department on 02/22 with generalized weakness. The patient reportedly was having problems with dizziness. PAST MEDICAL HISTORY: 1. hypertension 2. Hyperlipidemia 3. polycystic kidney disease 4. Hypothyroidism 5. coronary artery disease 6. history of coronary bypass graft surgery 7. atrial fibrillation status post ablation times four 8. AICD placement 9. Tonsillectomy 10. bilateral tubal ligation 11. Arthritis ALLERGIES VANCOMYCIN LEVAQUIN ERYTHROMYCIN AZITHROMYCIN CYCLOSPORIN MRI precaution. MEDICATIONS Current Medications Medications (Trade) Dose Ordered Sig/Alexa Route PRN Reason Start Time Stop Time Status Last Admin Dose Admin Aspirin (Aspirin) 325 mg DAILY PO 02/23/17 09:00 Future Hold 02/25/17 08:24 Insulin Aspart (NovoLOG SUPPLEMENTAL SCALE) 1 ACHS SQ 02/22/17 12:00 02/28/17 22:00 Dextrose (D50w (Vial) Inj) 50 ml UNSCH PRN IV PUSH HYPOGLYCEMIA-SEE COMMENTS 02/22/17 09:45 Glucagon (Glucagon Inj) 1 mg UNSCH PRN OTHER HYPOGLYCEMIA-SEE COMMENTS 02/22/17 09:45 Amiodarone HCl (Cordarone) 200 mg DAILY PO 02/23/17 09:00 Future hold 03/05/17 09:09 Atorvastatin Calcium (Lipitor) 40 mg HS PO 02/22/17 21:00 03/04/17 20:50 Bumetanide (Bumetanide) 1 mg DAILY PO 02/23/17 09:00 Future Hold Isosorbide Mononitrate (Imdur) 30 mg DAILY@0700 PO 02/23/17 07:00 03/05/17 06:29 Levothyroxine Sodium (Synthroid) 200 mcg DAILY@0600 PO 02/23/17 06:00 Future hold 03/05/17 06:27 Sacubitril/ Valsartan (Entresto 97-103 Mg) 1 tab BID PO 02/22/17 21:00 Future Hold 02/22/17 21:16 Spironolactone (Aldactone) 12.5 mg DAILY PO 02/23/17 09:00 Future hold 03/05/17 09:09 Venlafaxine HCl (Effexor Xr) 75 mg DAILY PO 02/23/17 09:00 Future Hold 03/03/17 08:53 Miscellaneous (Pill Splitter) 1 ea UNSCH PRN OTHER SEE LABEL COMMENTS 02/22/17 11:00 Acetaminophen/ Hydrocodone Bitart ([place] 5-325 Mg) 1 tab Q6H PRN PO PAIN 1-5 02/22/17 13:00 02/26/17 16:03 Prednisone (Deltasone) 5 mg BID PO 02/22/17 21:00 Future Hold 02/26/17 09:19 Sodium Chloride (NS Flush) 2 ml BID IV FLUSH 02/26/17 21:00 03/05/17 09:09 Sodium Chloride (NS Flush) 2 ml UNSCH PRN IV FLUSH FLUSH AFTER USING IV ACCESS 02/26/17 16:15 Terbutaline Sulfate (Brethine Inj) 1 mg UNSCH PRN SQ For Extravasation 02/26/17 22:00 Ondansetron HCl (Zofran Inj) 4 mg Q4H PRN IV PUSH NAUSEA OR VOMITING 02/26/17 23:00 Terbutaline Sulfate (Brethine Inj) 1 mg UNSCH PRN SQ FOR EXTRAVASATION PROTOCOL 02/27/17 00:15 Pantoprazole Sodium (Protonix Inj) 40 mg Q12H IV PUSH 02/27/17 08:00 03/05/17 09:08 Hydromorphone HCl (Dilaudid Pf Inj) 1 mg Q3H PRN IV PUSH Pain 6-10 02/27/17 07:15 03/05/17 04:18 Potassium Chloride (KCl) 20 meq Q12HR PO 03/01/17 21:00 03/05/17 09:09 Albuterol/ Ipratropium (Duoneb Neb) 1 ampule Q4HR NEB NEB 03/02/17 12:00 03/05/17 08:03 Albuterol/ Ipratropium (Duoneb Neb) 1 ampule Q2HR NEB PRN NEB SHORTNESS OF BREATH 03/02/17 08:15 03/03/17 14:23 Budesonide/ Formoterol Fumarate (Symbicort 160-4.5 Mcg Inh) 2 puff Q12HR INH 03/02/17 09:00 03/05/17 09:08 Tiotropium [place] (Spiriva Inh) 18 mcg DAILY INH 03/02/17 09:00 03/04/17 08:57 Hydrocortisone Sodium Succinate (SoluCORTEF INJ) 50 mg Q8HR IV 03/03/17 14:00 03/05/17 06:28 Potassium Chloride 100 ml @ 50 mls/hr Q2H PRN IV For Potassium 2.8 - 3.2 mEq/L 03/03/17 09:45 03/03/17 11:40 Potassium Chloride 100 ml @ 50 mls/hr Q2H PRN IV For Potassium 2.8 - 3.2 mEq/L 03/03/17 09:45 Potassium Bicarb/ Potassium Chloride (K-Lyte Cl Eff) 50 meq UNSCH PRN PO For Potassium 3.3 - 3.5 mEq/L 03/03/17 09:45 Potassium Chloride 100 ml @ 25 mls/hr UNSCH PRN IV For Potassium 3.3 - 3.5 mEq/L 03/03/17 09:45 03/04/17 06:49 Potassium Chloride 100 ml @ 50 mls/hr Q2H PRN IV For Potassium 3.3 - 3.5 mEq/L 03/03/17 09:45 Magnesium Sulfate 4 gm/Sodium Chloride 100 ml @ 50 mls/hr UNSCH PRN IV For Magnesium 0.9 - 1.1 mg/dL 03/03/17 09:45 Magnesium Oxide (Mag-Ox) 800 mg UNSCH PRN PO For Magnesium 1.2 - 1.6 mg/dL 03/03/17 09:45 Magnesium Sulfate 2 gm/Sodium Chloride 100 ml @ 50 mls/hr UNSCH PRN IV For Magnesium 1.2 - 1.6 mg/dL 03/03/17 09:45 Potassium Phosphate (K-Phos) 2,000 mg Q4H PRN PO For Phosphorus < 2.5 mg/dL 03/03/17 09:45 Sodium Phosphate 30 mmol/Sodium Chloride 250 ml @ 42 mls/hr UNSCH PRN IV For Phosphorus < 2.5 mg/dL 03/03/17 09:45 Potassium Phosphate (K-Phos) 2,000 mg UNSCH PRN PO/TUBE SEE LABEL COMMENTS 03/03/17 09:45 Potassium Phosphate 30 mmol/ Sodium Chloride 260 ml @ 42 mls/hr UNSCH PRN IV SEE LABEL COMMENTS 03/03/17 09:45 Furosemide (Lasix Inj) 40 mg Q12H IV PUSH 03/04/17 14:00 03/05/17 04:05 Metoprolol Tartrate (Lopressor) 25 mg BID PO 03/04/17 09:00 03/05/17 09:09 Linezolid (Zyvox) 600 mg Q12HR PO 03/04/17 09:00 03/06/17 21:01 03/05/17 09:00 Alprazolam (Xanax) 0.25 mg Q6H PRN PO anxiety 03/05/17 06:45 03/05/17 07:26 Miscellaneous Medication (ASP Crit: Path resist to other, cult proven) 1 UNSCH X1 PRN .XX PHARMACY DOCUMENTATION 03/05/17 07:45 03/06/17 07:44 Miscellaneous Medication ([facility] [place] [facility]) 1 UNSCH X1 PRN XX PHARMACY DOCUMENTATION 03/05/17 07:45 03/06/17 07:44 Ertapenem 1000 mg/ Sodium Chloride 100 ml @ 200 mls/hr Q24H IV 03/05/17 09:00 03/05/17 09:00 OBJECTIVE: Vital Signs Date Time Temp Pulse Resp B/P (MAP) Pulse Ox O2 Delivery O2 Flow Rate FiO2 03/05/17 10:10 79 High Flow Nasal Cannula 25.00 100 03/05/17 08:03 89 High Flow Nasal Cannula 25.00 50 03/05/17 08:00 80 03/05/17 08:00 99 Nasal Cannula 25.00 50 03/05/17 08:00 98.0 80 20 123/86 (98) 94 117/71 (86) 03/05/17 06:20 95 High Flow Nasal Cannula 25.00 50 03/05/17 05:00 18 03/05/17 04:08 98 30 03/05/17 03:00 97.8 81 20 153/91 (111) 94 122/75 (91) 03/05/17 03:00 81 03/05/17 03:00 94 Bi-Pap 30 03/05/17 00:55 94 30 03/04/17 23:30 88 30 03/04/17 23:00 97.9 95 18 153/83 (106) 89 128/75 (92) 03/04/17 23:00 97 Bi-Pap 30 03/04/17 23:00 95 03/04/17 22:30 89 Nasal Cannula 40.00 55 03/04/17 22:30 94 High Flow Nasal Cannula 40.00 55 03/04/17 22:14 98 30 03/04/17 20:20 99 35 03/04/17 20:20 99 BiPAP 35 03/04/17 19:00 98.2 96 22 123/85 (98) 98 114/71 (85) 03/04/17 19:00 96 03/04/17 19:00 98 Bi-Pap 50 03/04/17 18:38 92 50 03/04/17 16:41 98 Non-Rebreather 15.00 100 03/04/17 15:53 98 40 03/04/17 15:00 98 Bi-Pap 03/04/17 15:00 98.3 94 20 127/78 (94) 98 107/73 (84) 03/04/17 15:00 98 03/04/17 14:06 98 40 03/04/17 12:07 92 40 Laboratory Tests Test 03/04/17 05:00 03/05/17 03:40 White Blood Count 12.0 TH/MM3 13.3 TH/MM3 Red Blood Count 3.00 MIL/MM3 3.14 MIL/MM3 Hemoglobin 9.1 GM/DL 9.5 GM/DL Hematocrit 27.0 % 28.5 % Mean Corpuscular Volume 90.2 FL 90.8 FL Mean Corpuscular Hemoglobin 30.3 PG 30.4 PG Mean Corpuscular Hemoglobin Concent 33.6 % 33.4 % Red Cell Distribution Width 16.3 % 16.6 % Platelet Count 117 TH/MM3 144 TH/MM3 Mean Platelet Volume 7.1 FL 6.9 FL Neutrophils (%) (Auto) 89.7 % Lymphocytes (%) (Auto) 2.4 % Monocytes (%) (Auto) 7.5 % Eosinophils (%) (Auto) 0.1 % Basophils (%) (Auto) 0.3 % Neutrophils # (Auto) 10.7 TH/MM3 Lymphocytes # (Auto) 0.3 TH/MM3 Monocytes # (Auto) 0.9 TH/MM3 Eosinophils # (Auto) 0.0 TH/MM3 Basophils # (Auto) 0.0 TH/MM3 CBC Comment AUTO DIFF AUTO DIFF Differential Total Cells Counted 100 100 Neutrophils % (Manual) 83 % 93 % Band Neutrophils % 6 % Lymphocytes % 5 % 1 % Monocytes % 5 % 6 % Neutrophils # (Manual) 10.8 TH/MM3 12.4 TH/MM3 Myelocytes 1 % Nucleated Red Blood Cells 4 /100 WBC 3 /100 WBC Differential Comment FINAL DIFF MANUAL FINAL DIFF MANUAL Platelet Estimate LOW LOW Platelet Morphology Comment NORMAL NORMAL Ovalocytes 1+ Laboratory Tests Test 03/03/17 12:53 03/03/17 18:50 03/04/17 05:00 03/04/17 16:45 Potassium Level 3.8 MEQ/L 3.5 MEQ/L 3.4 MEQ/L 3.5 MEQ/L Phosphorus Level 4.1 MG/DL Blood Urea Nitrogen 32 MG/DL Creatinine 0.88 MG/DL Random Glucose 97 MG/DL Total Protein 6.2 GM/DL Albumin 2.6 GM/DL Calcium Level 8.6 MG/DL Alkaline Phosphatase 77 U/L Aspartate Amino Transf (AST/SGOT) 60 U/L Alanine Aminotransferase (ALT/SGPT) 74 U/L Total Bilirubin 1.2 MG/DL Sodium Level 147 MEQ/L Chloride Level 102 MEQ/L Carbon Dioxide Level 36.2 MEQ/L Anion Gap 9 MEQ/L Estimat Glomerular Filtration Rate 66 ML/MIN Test 03/05/17 03:40 Blood Urea Nitrogen 33 MG/DL Creatinine 0.87 MG/DL Random Glucose 105 MG/DL Total Protein 6.5 GM/DL Albumin 2.7 GM/DL Calcium Level 8.7 MG/DL Magnesium Level 1.9 MG/DL Alkaline Phosphatase 84 U/L Aspartate Amino Transf (AST/SGOT) 47 U/L Alanine Aminotransferase (ALT/SGPT) 61 U/L Total Bilirubin 1.6 MG/DL Sodium Level 147 MEQ/L Potassium Level 3.6 MEQ/L Chloride Level 103 MEQ/L Carbon Dioxide Level 37.6 MEQ/L Anion Gap 6 MEQ/L Estimat Glomerular Filtration Rate 66 ML/MIN IMAGING: Chest X-Ray 03/05/17 0600 Signed Impressions: Service Date/Time: February 04:06 - CONCLUSION: 1. Persistent left lower lobe consolidation. 2. Improving infiltrates in the right. Kiet Rob MD Chest X-Ray 03/04/17 0000 Signed Impressions: Service Date/Time: Saturday, March 04, 2017 07:18 - CONCLUSION: 1. Cardiomegaly with positive fluid balance. 2. Patchy diffuse bilateral airspace disease slightly progressed in the right lung. Sonu Esparza MD Chest X-Ray 03/03/17 0600 Signed Impressions: Service Date/Time: Friday, March 03, 2017 04:52 - CONCLUSION: Increasing partially consolidative infiltrates in the right upper and right lower lung. Persistent lobar consolidation left lower lobe. Kiet Rob MD Chest X-Ray 03/02/17 0600 Signed Impressions: Service Date/Time: Thursday, March 02, 2017 03:47 - CONCLUSION: There is no subsegmental consolidative infiltrate in the right upper lobe. Persistent left lower lobe consolidation. Kiet Rob MD Angiography 02/27/17 1219 Signed Impressions: Service Date/Time: Monday, February 27, 2017 11:03 - CONCLUSION: No evidence of arterial injury and no findings to indicate site of bleeding to account for anterior abdominal wall hematoma. Savage Aranda MD Aorta CTA 02/26/17 0000 Signed Impressions: Service Date/Time: February 19:19 - CONCLUSION: 1. Large anterior abdominal wall hematoma. 2. No aortic dissection or aneurysm. 3. Changes involving the liver suggesting cirrhosis. 4. Cholelithiasis. 5. Bibasilar atelectasis. 6. Cardiomegaly. Kiet Camarena Jr., MD Neck CTA 02/22/17 0000 Signed Impressions: Service Date/Time: Wednesday, February 22, 2017 06:25 - CONCLUSION: 1. Prominent atherosclerotic disease at carotid bulbs resulting in approximately 70%% stenosis of the proximal right ICA at its origin and approximately 40-50%% stenosis of the proximal left ICA. 2. Moderate grade stenosis of the proximal left common carotid artery at its origin. Gurdeep Laird MD Head CTA 02/22/17 0000 Signed Impressions: Service Date/Time: Wednesday, February 22, 2017 06:25 - CONCLUSION: No evidence of proximal high-grade stenosis or occlusion. Gurdeep Laird MD Head CT 02/22/17 0000 Signed Impressions: Service Date/Time: Wednesday, February 22, 2017 06:25 - CONCLUSION: Normal examination for a patient of this age. No significant change has occurred. Billy Weems MD PHYSICAL EXAMINATION: GENERAL: No acute distress. HEENT: EOMI. No icterus. Moist mucosa. NECK: No swelling or adenopathy. LUNGS: Bilateral rhonchi. Left > right. HEART: Irregular rate and rhythm. No murmurs audible. ABDOMEN: Distended. Soft, non tender. EXTREMITIES: No clubbing or cyanosis or edema. SKIN: No diffuse rash. NEUROLOGIC: Non focal. PSYCH: calm and cooperative. IMPRESSION 1. Hemorrhagic shock. Patient developed hypotension and tachycardia and abdominal wall hematoma. 2. Leukocytosis. 3. Acute kidney disease. The patient received contrast for radiographic study and also she was hypotensive and may have had also hypotensive insult to the kidney. improving. 4. Lung infiltrate. ? VAP. E.coli. 5. Multiple antibiotic allergies. RECOMMENDATIONS 1. Continue Ertapenem. 2. Agree with stopping Zyvox. 3. Monitor clinical status. 4. Monitor WBC. Antonio Tobar MD Mar 05, 2017 11:16
[2017-03-05] MEDS: ACETAMINOPHEN/HYDROcodone 325 MG/5 MG TAB PO PRN (12:27)
--- NOTE | 2017-03-05 17:24 | PD.CAR.PN ---
CVT Progress Note Subjective/Hospital Course: referral received full consult TF J Patient stable now Neurologically remains intact The dizziness and vertigo she had is now gone in this more and more looks like a TIA Neurology consult greatly appreciated At this point agree with neurologist and I will address carotid artery while patient still in the hospital Patient is known to cardiac problems and I reviewed her echocardiogram Cardiology consulted, spoken to Dr Juarez. All things equal for right carotid endarterectomy after cardiac cath, likely Thursday or Thursday02/26/17 Patient doing better now Vertigo is gone She underwent cardiac catheterization today which reveals patent coronary vessels and fairly normal intracardiac pressures Have discussed this with Dr. Juarez At this point patient is a moderate high risk for carotid endarterectomy In face of 70% stenosis in neurologic symptoms I'm hard pressed not to offer patient to surgery as an option Patient for right carotid endarterectomy tomorrow 03/04/17 Patient now on face mask and was on BiPAP mask yesterday Abdomen is soft active bowel sounds and lower abdomen is still distended and firm I discussed care with Dr. Wan and the is clearly would be advisable to do this surgery without intubating the patient but I do not believe that this is possible due to the huge size of this Considering patient's precarious respiratory status we decided to wait another day and take the patient to the operating room Thursday for washout 03/05/17 Patient doing fairly well She is on partial rebreather mask Abdomen is soft active bowel sounds Discussed the case with Dr. Wan and we jointly made the decision to take patient to the operating room tomorrow for washout and evacuation of this large preperitoneal hematoma before it gets infected Objective: Vital Signs Date Time Temp Pulse Resp B/P (MAP) Pulse Ox O2 Delivery O2 Flow Rate FiO2 03/05/17 15:40 97 Nasal Cannula 4.00 03/05/17 15:37 98.4 81 18 129/77 (94) 92 03/05/17 15:00 81 03/05/17 13:27 20 03/05/17 12:03 99 Nasal Cannula 25.00 50 03/05/17 11:59 98.2 81 18 127/82 (97) 95 Arterial Line 03/05/17 11:00 82 03/05/17 10:10 79 High Flow Nasal Cannula 25.00 100 03/05/17 08:03 89 High Flow Nasal Cannula 25.00 50 03/05/17 08:00 80 03/05/17 08:00 99 Nasal Cannula 25.00 50 03/05/17 08:00 98.0 80 20 123/86 (98) 94 117/71 (86) 03/05/17 06:20 95 High Flow Nasal Cannula 25.00 50 03/05/17 05:00 18 03/05/17 04:08 98 30 03/05/17 03:00 97.8 81 20 153/91 (111) 94 122/75 (91) 03/05/17 03:00 81 03/05/17 03:00 94 Bi-Pap 30 03/05/17 00:55 94 30 03/04/17 23:30 88 30 03/04/17 23:00 97.9 95 18 153/83 (106) 89 128/75 (92) 03/04/17 23:00 97 Bi-Pap 30 03/04/17 23:00 95 03/04/17 22:30 89 Nasal Cannula 40.00 55 03/04/17 22:30 94 High Flow Nasal Cannula 40.00 55 03/04/17 22:14 98 30 03/04/17 20:20 99 35 03/04/17 20:20 99 BiPAP 35 03/04/17 19:00 98.2 96 22 123/85 (98) 98 114/71 (85) 03/04/17 19:00 96 03/04/17 19:00 98 Bi-Pap 50 03/04/17 18:38 92 50 Result Diagram: 03/05/17 0340 03/05/17 0340 (1) PVD (peripheral vascular disease) (2) Anemia (3) Abdominal hematoma (4) Obesity (5) SOB (shortness of breath) (6) Hx of coronary artery disease (7) Atrial fibrillation (8) DM (diabetes mellitus) (9) Carotid stenosis (10) History of four vessel coronary artery bypass graft Problem Qualifiers (1) Atrial fibrillation: Qualified Codes: I48.0 - Paroxysmal atrial fibrillation Chin Alcazar MD Mar 05, 2017 17:24
[2017-03-05] MEDS: ATORVASTATIN 40 MG TAB PO SCH (20:50)
[2017-03-05] MEDS ORDERED: LIDOCAINE HCL 2% 100 MG/5 ML SYRINGE ONE (23:03)
[2017-03-05] MEDS ORDERED: ATROPINE SULFATE 1 MG/10 ML SYRINGE ONE (23:03)
[2017-03-05] MEDS ORDERED: EPINEPHrine HCL (1:10,000) 1 MG/10 ML SYRINGE ONE (23:06)
[2017-03-06] VITALS (11 sets, daily range): BP systolic 102–149; BP diastolic 66–92; PULSE 82–84; RESP 14–17; TEMP 97.7–98.4; O2SAT 95–100
[2017-03-06] MEDS: RESP: ALBUTEROL 2.5 MG/IPRATROPIUM 0.5 MG NEB (SCH) NEB ×4 (00:19→13:33)
[2017-03-06] MEDS: FUROSEMIDE 40 MG/4 ML VIAL IV PUSH SCH ×2 (04:10→14:00)
[2017-03-06] MEDS: LEVOTHYROXINE SODIUM 200 MCG TAB PO SCH (05:24)
[2017-03-06] MEDS: HYDROCORTISONE SOD SUCCINATE 100 MG VIAL IV SCH ×3 (05:25→22:01)
--- NOTE | 2017-03-06 05:42 | RADRPT ---
EXAM DATE/TIME: 03/06/2017 04:18 [facility] COMPARISON: CHEST SINGLE AP, March 05, 2017, 4:06. INDICATIONS : Respiratory disease. MEDICAL HISTORY : Cerebrovascular disease. Chronic obstructive pulmonary disease. Cardiovascular disease. Diabetes Hype rtension SURGICAL HISTORY : CABG. Pacemaker. ENCOUNTER: Subsequent ACUITY: 2 weeks PAIN SCORE: Non-responsive. LOCATION: Bilateral chest FINDINGS: The patient is status post sternotomy. The left internal jugular central line is well placed. There i s a pacing/AICD device in place from the left subclavian approach. The cardiac silhouette is enlarged . There is increased density at the left base with silhouetting of the left hemidiaphragm. There is p atchy air density seen in the right perihilar region. CONCLUSION: 1. Cardiomegaly. 2. The floor lobe atelectasis, consolidation and/or effusion. 3. Patchy consolidation or atelectasis in the right perihilar region. Savage Victoria MD on March 06, 2017 at 5:38 Board Certified Radiologist. This report was verified electronically.
[2017-03-06] MEDS: ISOSORBIDE MONONITRATE 30 MG TAB PO SCH (06:17)
[2017-03-06] MEDS: HYDROmorphone HCL PF 2 MG/ML VIAL IV PUSH PRN (06:17)
[2017-03-06] MEDS: INSULIN ASPART SUPPLEMENTAL SCALE SQ SCH ×4 (08:00→21:00)
[2017-03-06 08:28] LABS: HEMATOCRIT 27.7 % (35.0-46.0); HEMOGLOBIN 9.4 GM/DL (11.6-15.3); MEAN CELL VOLUME 91.3 FL (80.0-100.0); MEAN CORPUSCULAR HEMOGLOBIN 30.9 PG (27.0-34.0); MEAN CORPUSCULAR HGB CONC 33.8 % (32.0-36.0); MEAN PLATELET VOLUME 6.5 FL (7.0-11.0); PLATELET COUNT 155 TH/MM3 (150-450); RED BLOOD COUNT 3.03 MIL/MM3 (4.00-5.30); RED CELL DISTRIBUTION WIDTH 16.3 % (11.6-17.2); WHITE BLOOD COUNT 12.4 TH/MM3 (4.0-11.0)
[2017-03-06] MEDS: PANTOPRAZOLE SODIUM 40 MG VIAL IV PUSH SCH ×2 (08:32→21:55)
[2017-03-06] MEDS: METOPROLOL TARTRATE 25 MG TAB PO SCH ×2 (08:32→21:37)
[2017-03-06] MEDS: ERTAPENEM INJ 1,000 MG in SODIUM CHLORIDE 0.9% INJ 100 ML IV SCH (08:32)
[2017-03-06] MEDS: AMIODARONE 200 MG TAB PO SCH (08:32)
[2017-03-06] MEDS: SPIRONOLACTONE 25 MG TAB PO SCH (08:33)
[2017-03-06] MEDS: LINEZOLID 600 MG TAB PO SCH ×2 (08:33→21:37)
[2017-03-06 08:56] LABS: ALBUMIN 2.7 GM/DL (3.4-5.0); AST (GOT) 41 U/L (15-37); BICARBONATE 38.4 MEQ/L (21.0-32.0); BLOOD UREA NITROGEN 40 MG/DL (7-18); CHLORIDE 101 MEQ/L (98-107); CREATININE 0.83 MG/DL (0.50-1.00); GLOMERULAR FILTRATION RATE 70 ML/MIN (>89); GLUCOSE,RANDOM 110 MG/DL (74-106); MAGNESIUM 2.1 MG/DL (1.5-2.5); SODIUM (NA) 144 MEQ/L (136-145)
[2017-03-06 09:00] LABS: ALKALINE PHOSPHATASE 79 U/L (45-117); ALT (GPT) 45 U/L (10-53); TOTAL BILIRUBIN ADULT 1.4 MG/DL (0.2-1.0); TOTAL PROTEIN 6.3 GM/DL (6.4-8.2)
[2017-03-06] MEDS: SODIUM CHLORIDE 0.9% FLUSH 10 ML FLUSH IV FLUSH SCH ×2 (09:00→21:38)
[2017-03-06] MEDS: POTASSIUM CHLORIDE 20 MEQ CONTROLLED RELEASE TAB PO SCH ×2 (09:00→21:00)
[2017-03-06] MEDS: TIOTROPIUM BROMIDE 18 MCG INH INH SCH (09:00)
[2017-03-06] MEDS: BUDESONIDE-FORMOTEROL 160/4.5 MCG INHALER INH SCH ×2 (09:00→21:00)
--- NOTE | 2017-03-06 09:31 | PD.CARD.PN ---
Subjective Subjective Remarks extubated, 30% nasal canula, verbal in nad Objective Medications Current Medications Medications (Trade) Dose Ordered Sig/Alexa Route Start Time Stop Time Status Last Admin (Aspirin) 325 mg DAILY PO 02/23/17 09:00 Future Hold 02/25/17 08:24 (NovoLOG SUPPLEMENTAL SCALE) 1 ACHS SQ 02/22/17 12:00 02/28/17 22:00 (D50w (Vial) Inj) 50 ml UNSCH PRN IV PUSH 02/22/17 09:45 (Glucagon Inj) 1 mg UNSCH PRN OTHER 02/22/17 09:45 (Cordarone) 200 mg DAILY PO 02/23/17 09:00 Future hold 03/06/17 08:32 (Lipitor) 40 mg HS PO 02/22/17 21:00 03/05/17 20:50 (Bumetanide) 1 mg DAILY PO 02/23/17 09:00 Future Hold (Imdur) 30 mg DAILY@0700 PO 02/23/17 07:00 03/06/17 06:17 (Synthroid) 200 mcg DAILY@0600 PO 02/23/17 06:00 Future hold 03/06/17 05:24 (Entresto 97-103 Mg) 1 tab BID PO 02/22/17 21:00 Future Hold 02/22/17 21:16 (Aldactone) 12.5 mg DAILY PO 02/23/17 09:00 Future hold 03/06/17 08:33 (Effexor Xr) 75 mg DAILY PO 02/23/17 09:00 Future Hold 03/03/17 08:53 (Pill Splitter) 1 ea UNSCH PRN OTHER 02/22/17 11:00 ([place] 5-325 Mg) 1 tab Q6H PRN PO 02/22/17 13:00 03/05/17 12:27 (Deltasone) 5 mg BID PO 02/22/17 21:00 Future Hold 02/26/17 09:19 (NS Flush) 2 ml BID IV FLUSH 02/26/17 21:00 03/05/17 20:51 (NS Flush) 2 ml UNSCH PRN IV FLUSH 02/26/17 16:15 (Brethine Inj) 1 mg UNSCH PRN SQ 02/26/17 22:00 (Zofran Inj) 4 mg Q4H PRN IV PUSH 02/26/17 23:00 (Brethine Inj) 1 mg UNSCH PRN SQ 02/27/17 00:15 (Protonix Inj) 40 mg Q12H IV PUSH 02/27/17 08:00 03/06/17 08:32 (Dilaudid Pf Inj) 1 mg Q3H PRN IV PUSH 02/27/17 07:15 03/06/17 06:17 (KCl) 20 meq Q12HR PO 03/01/17 21:00 03/05/17 20:50 (Duoneb Neb) 1 ampule Q4HR NEB NEB 03/02/17 12:00 03/06/17 08:01 (Duoneb Neb) 1 ampule Q2HR NEB PRN NEB 03/02/17 08:15 03/03/17 14:23 (Symbicort 160-4.5 Mcg Inh) 2 puff Q12HR INH 03/02/17 09:00 03/05/17 20:51 (Spiriva Inh) 18 mcg DAILY INH 03/02/17 09:00 03/05/17 09:00 (SoluCORTEF INJ) 50 mg Q8HR IV 03/03/17 14:00 03/06/17 05:25 Potassium Chloride 100 ml @ 50 mls/hr Q2H PRN IV 03/03/17 09:45 03/03/17 11:40 Potassium Chloride 100 ml @ 50 mls/hr Q2H PRN IV 03/03/17 09:45 (K-Lyte Cl Eff) 50 meq UNSCH PRN PO 03/03/17 09:45 Potassium Chloride 100 ml @ 25 mls/hr UNSCH PRN IV 03/03/17 09:45 03/04/17 06:49 Potassium Chloride 100 ml @ 50 mls/hr Q2H PRN IV 03/03/17 09:45 Magnesium Sulfate 4 gm/Sodium Chloride 100 ml @ 50 mls/hr UNSCH PRN IV 03/03/17 09:45 (Mag-Ox) 800 mg UNSCH PRN PO 03/03/17 09:45 Magnesium Sulfate 2 gm/Sodium Chloride 100 ml @ 50 mls/hr UNSCH PRN IV 03/03/17 09:45 (K-Phos) 2,000 mg Q4H PRN PO 1/23/18 09:45 Sodium Phosphate 30 mmol/Sodium Chloride 250 ml @ 42 mls/hr UNSCH PRN IV 03/03/17 09:45 (K-Phos) 2,000 mg UNSCH PRN PO/TUBE 03/03/17 09:45 Potassium Phosphate 30 mmol/ Sodium Chloride 260 ml @ 42 mls/hr UNSCH PRN IV 03/03/17 09:45 (Lasix Inj) 40 mg Q12H IV PUSH 03/04/17 14:00 03/06/17 04:10 (Lopressor) 25 mg BID PO 03/04/17 09:00 03/06/17 08:32 (Zyvox) 600 mg Q12HR PO 03/04/17 09:00 03/06/17 21:01 03/06/17 08:33 (Xanax) 0.25 mg Q6H PRN PO 03/05/17 06:45 03/05/17 07:26 Ertapenem 1000 mg/ Sodium Chloride 100 ml @ 200 mls/hr Q24H IV 03/05/17 09:00 03/06/17 08:32 Vital Signs / I&O Vital Signs Date Time Temp Pulse Resp B/P (MAP) Pulse Ox O2 Delivery O2 Flow Rate FiO2 03/06/17 08:01 99 30 03/06/17 06:47 20 03/06/17 04:00 95 Bi-Pap 30 03/06/17 03:36 100 30 03/06/17 03:00 82 03/06/17 03:00 98.1 82 16 139/80 (99) 95 03/06/17 00:00 97.8 82 16 149/92 (111) 95 03/06/17 00:00 82 03/06/17 00:00 95 Bi-Pap 30 03/05/17 23:22 93 30 03/05/17 21:07 93 30 03/05/17 20:32 94 High Flow Nasal Cannula 25.00 50 03/05/17 19:00 83 03/05/17 19:00 98.6 83 22 109/65 (80) 95 03/05/17 19:00 95 Nasal Cannula 4.00 03/05/17 15:40 97 Nasal Cannula 4.00 03/05/17 15:37 98.4 81 18 129/77 (94) 92 03/05/17 15:00 81 03/05/17 13:27 20 03/05/17 12:03 99 Nasal Cannula 25.00 50 03/05/17 11:59 98.2 81 18 127/82 (97) 95 Arterial Line 03/05/17 11:00 82 03/05/17 10:10 79 High Flow Nasal Cannula 25.00 100 I/O 03/05/17 03/05/17 03/05/17 03/06/17 03/06/17 03/06/17 07:00 15:00 23:00 07:00 15:00 23:00 Intake Total 50 ml 50 ml 960 ml Output Total 900 ml 1360 ml 800 ml Balance -850 ml 50 ml -400 ml -800 ml Intake Oral 50 ml 960 ml IV Total 50 ml Output Urine Total 900 ml 1360 ml 800 ml # Bowel Movements 1 2 0 Physical Exam GENERAL: SKIN: Warm and dry. HEAD: Normocephalic. EYES: No scleral icterus. No injection or drainage. NECK: Supple, trachea midline. No JVD or lymphadenopathy. CARDIOVASCULAR: Regular rate and rhythm without murmurs, gallops, or rubs. RESPIRATORY: Breath sounds equal bilaterally. No accessory muscle use. GASTROINTESTINAL: Abdomen soft, non-tender, nondistended. MUSCULOSKELETAL: No cyanosis, or edema. BACK: Nontender without obvious deformity. No CVA tenderness. Laboratory Laboratory Tests Test 03/06/17 08:10 White Blood Count 12.4 TH/MM3 Red Blood Count 3.03 MIL/MM3 Hemoglobin 9.4 GM/DL Hematocrit 27.7 % Mean Corpuscular Volume 91.3 FL Mean Corpuscular Hemoglobin 30.9 PG Mean Corpuscular Hemoglobin Concent 33.8 % Red Cell Distribution Width 16.3 % Platelet Count 155 TH/MM3 Mean Platelet Volume 6.5 FL CBC Comment AUTO DIFF Blood Urea Nitrogen 40 MG/DL Creatinine 0.83 MG/DL Random Glucose 110 MG/DL Total Protein 6.3 GM/DL Albumin 2.7 GM/DL Calcium Level 9.0 MG/DL Magnesium Level 2.1 MG/DL Alkaline Phosphatase 79 U/L Aspartate Amino Transf (AST/SGOT) 41 U/L Alanine Aminotransferase (ALT/SGPT) 45 U/L Total Bilirubin 1.4 MG/DL Sodium Level 144 MEQ/L Potassium Level 3.5 MEQ/L Chloride Level 101 MEQ/L Carbon Dioxide Level 38.4 MEQ/L Anion Gap 5 MEQ/L Estimat Glomerular Filtration Rate 70 ML/MIN Imaging Last 24 hours Impressions Chest X-Ray 03/06/17 0600 Signed Impressions: Service Date/Time: Monday, March 06, 2017 04:18 - CONCLUSION: 1. Cardiomegaly. 2. The floor lobe atelectasis, consolidation and/or effusion. 3. Patchy consolidation or atelectasis in the right perihilar region. Savage Victoria MD Assessment and Plan Problem List: (1) PVD (peripheral vascular disease) ICD Codes: I73.9 - Peripheral vascular disease, unspecified (2) Anemia ICD Codes: D64.9 - Anemia, unspecified (3) Abdominal hematoma ICD Codes: S30.1XXA - Contusion of abdominal wall, initial encounter (4) Obesity ICD Codes: E66.9 - Obesity Status: Acute (5) SOB (shortness of breath) ICD Codes: R06.02 - SOB (shortness of breath) Status: Acute (6) Hx of coronary artery disease ICD Codes: Z86.79 - Personal history of other diseases of the circulatory system (7) Atrial fibrillation ICD Codes: I48.91 - Atrial fibrillation Status: Chronic (8) DM (diabetes mellitus) ICD Codes: E11.9 - DM (diabetes mellitus) Status: Chronic (9) Carotid stenosis ICD Codes: I65.29 - Occlusion and stenosis of unspecified carotid artery (10) History of four vessel coronary artery bypass graft ICD Codes: Z95.1 - Presence of aortocoronary bypass graft Assessment and Plan 1.) CAD - i could not image lyles, ow good flow to iw, lw, anterior wall with good wall motion but cant rule out lyles or lad disease therefore patient is moderate to high risk for noncardiac surgery, d/w Dr Cruz 2.) abdominal hematoma - rp bleed and groin hematoma ruled out, arterial injury and active bleeding from cath ruled out by angio 02/27/17, still requiring transfusion despite angiogram demonstrating no arterial injury or active bleeding suggesting bleeding is a local abdominal source, possibly due to lovenox injections, would explain why bleeding not tamponading as adipose tissue would lower resistance than rp or groin, still requiring transfusion and pressors but mental status good and u/o > 300/shift; d/w Dr Schafer 02/28/18 3.) PAF - in af rate controlled this am hr @ 85, ac held due to abdominal hematoma 4.) Carotid stenosis - surgery postponed due to abdominal hematoma 5.) Anemia - hgb stablelizing, creatinine improving, u/o increasing on lasix, continue to monitor hgb; hematoma evacuation per Dr Cruz 6.) hypoxia - improving , Dr Schafer managing, on nasal canula Problem Qualifiers (1) Atrial fibrillation: Qualified Codes: I48.0 - Paroxysmal atrial fibrillation Macho Juarez MD Mar 06, 2017 09:31
[2017-03-06] MEDS ORDERED: BUPIVACAINE/EPINEPHRINE 0.25% 50 ML VIAL ONE (09:41)
[2017-03-06 09:42] LABS: BANDS 1 % (0-6); CORRECTED NUCLEATED RBC 2 /100 WBC (0-0); LYMPHOCYTES 1 % (9-44); METAMYELOCYTES 3 % (0-1); MONOCYTES 8 % (0-8); MYELOCYTES 1 % (0-0); NEUTROPHIL # MANUAL DIFF 11.3 TH/MM3 (1.8-7.7); NUCLEATED RED BLOOD CELL 2 (0-0); POLYS (SEG NEUTROPHILS) 86 % (16-70)
[2017-03-06 09:51] LABS: STOMATOCYTES 1+ (NORMAL)
[2017-03-06] MEDS ORDERED: DO NOT ADM ANY ANTICOAGULANT DRUGS PRN (11:58)
[2017-03-06] MEDS ORDERED: PROPOFOL 1000 MG/100 ML INJ 100 ML ONE ×2 (11:59→12:09)
[2017-03-06] MEDS: PROPOFOL 1000 MG/100 ML IV PRN ×2 (12:13→21:12)
[2017-03-06] MEDS ORDERED: KETAMINE HCL 500 MG/5 ML VIAL ONE (12:15)
[2017-03-06] MEDS ORDERED: DEXMEDETOMIDINE 200 MCG/50 ML Premix IV PRN (12:30)
[2017-03-06] MEDS ORDERED: DEXMEDETOMIDINE 200 MCG in NS 48 ML IV PRN (13:00)
[2017-03-06] MEDS: RESP: ALBUTEROL 2.5 MG/IPRATROPIUM 0.5 MG NEB (PRN) NEB ×2 (13:32→20:20)
--- NOTE | 2017-03-06 14:02 | HHI.IDPN ---
Note Infectious Disease Note Patient is post up from evacuation of hematoma in the abdomen. On the vent. Afebrile. BP stable. Patient presented to [facility] emergency department on 02/22 with generalized weakness. The patient reportedly was having problems with dizziness. PAST MEDICAL HISTORY: 1. hypertension 2. Hyperlipidemia 3. polycystic kidney disease 4. Hypothyroidism 5. coronary artery disease 6. history of coronary bypass graft surgery 7. atrial fibrillation status post ablation times four 8. AICD placement 9. Tonsillectomy 10. bilateral tubal ligation 11. Arthritis ALLERGIES VANCOMYCIN LEVAQUIN ERYTHROMYCIN AZITHROMYCIN CYCLOSPORIN MRI precaution. MEDICATIONS Current Medications Medications (Trade) Dose Ordered Sig/Alexa Route PRN Reason Start Time Stop Time Status Last Admin Dose Admin Aspirin (Aspirin) 325 mg DAILY PO 02/23/17 09:00 Future Hold 02/25/17 08:24 Insulin Aspart (NovoLOG SUPPLEMENTAL SCALE) 1 ACHS SQ 02/22/17 12:00 02/28/17 22:00 Dextrose (D50w (Vial) Inj) 50 ml UNSCH PRN IV PUSH HYPOGLYCEMIA-SEE COMMENTS 02/22/17 09:45 Glucagon (Glucagon Inj) 1 mg UNSCH PRN OTHER HYPOGLYCEMIA-SEE COMMENTS 02/22/17 09:45 Amiodarone HCl (Cordarone) 200 mg DAILY PO 02/23/17 09:00 Future hold 03/06/17 08:32 Atorvastatin Calcium (Lipitor) 40 mg HS PO 02/22/17 21:00 03/05/17 20:50 Bumetanide (Bumetanide) 1 mg DAILY PO 02/23/17 09:00 Future Hold Isosorbide Mononitrate (Imdur) 30 mg DAILY@0700 PO 02/23/17 07:00 03/06/17 06:17 Levothyroxine Sodium (Synthroid) 200 mcg DAILY@0600 PO 02/23/17 06:00 Future hold 03/06/17 05:24 Sacubitril/ Valsartan (Entresto 97-103 Mg) 1 tab BID PO 02/22/17 21:00 Future Hold 02/22/17 21:16 Spironolactone (Aldactone) 12.5 mg DAILY PO 02/23/17 09:00 Future hold 03/06/17 08:33 Venlafaxine HCl (Effexor Xr) 75 mg DAILY PO 02/23/17 09:00 Future Hold 03/03/17 08:53 Miscellaneous (Pill Splitter) 1 ea UNSCH PRN OTHER SEE LABEL COMMENTS 02/22/17 11:00 Acetaminophen/ Hydrocodone Bitart ([place] 5-325 Mg) 1 tab Q6H PRN PO PAIN 1-5 02/22/17 13:00 03/05/17 12:27 Prednisone (Deltasone) 5 mg BID PO 02/22/17 21:00 Future Hold 02/26/17 09:19 Sodium Chloride (NS Flush) 2 ml BID IV FLUSH 02/26/17 21:00 03/06/17 09:00 Sodium Chloride (NS Flush) 2 ml UNSCH PRN IV FLUSH FLUSH AFTER USING IV ACCESS 02/26/17 16:15 Terbutaline Sulfate (Brethine Inj) 1 mg UNSCH PRN SQ For Extravasation 02/26/17 22:00 Ondansetron HCl (Zofran Inj) 4 mg Q4H PRN IV PUSH NAUSEA OR VOMITING 02/26/17 23:00 Terbutaline Sulfate (Brethine Inj) 1 mg UNSCH PRN SQ FOR EXTRAVASATION PROTOCOL 02/27/17 00:15 Pantoprazole Sodium (Protonix Inj) 40 mg Q12H IV PUSH 02/27/17 08:00 03/06/17 08:32 Hydromorphone HCl (Dilaudid Pf Inj) 1 mg Q3H PRN IV PUSH Pain 6-10 02/27/17 07:15 03/06/17 06:17 Potassium Chloride (KCl) 20 meq Q12HR PO 03/01/17 21:00 03/05/17 20:50 Albuterol/ Ipratropium (Duoneb Neb) 1 ampule Q2HR NEB PRN NEB SHORTNESS OF BREATH 03/02/17 08:15 03/06/17 13:32 Budesonide/ Formoterol Fumarate (Symbicort 160-4.5 Mcg Inh) 2 puff Q12HR INH 03/02/17 09:00 03/05/17 20:51 Tiotropium [place] (Spiriva Inh) 18 mcg DAILY INH 03/02/17 09:00 03/05/17 09:00 Hydrocortisone Sodium Succinate (SoluCORTEF INJ) 50 mg Q8HR IV 03/03/17 14:00 03/06/17 05:25 Potassium Chloride 100 ml @ 50 mls/hr Q2H PRN IV For Potassium 2.8 - 3.2 mEq/L 03/03/17 09:45 03/03/17 11:40 Potassium Chloride 100 ml @ 50 mls/hr Q2H PRN IV For Potassium 2.8 - 3.2 mEq/L 03/03/17 09:45 Potassium Bicarb/ Potassium Chloride (K-[place] Cl Eff) 50 meq UNSCH PRN PO For Potassium 3.3 - 3.5 mEq/L 03/03/17 09:45 Potassium Chloride 100 ml @ 25 mls/hr UNSCH PRN IV For Potassium 3.3 - 3.5 mEq/L 03/03/17 09:45 03/04/17 06:49 Potassium Chloride 100 ml @ 50 mls/hr Q2H PRN IV For Potassium 3.3 - 3.5 mEq/L 03/03/17 09:45 Magnesium Sulfate 4 gm/Sodium Chloride 100 ml @ 50 mls/hr UNSCH PRN IV For Magnesium 0.9 - 1.1 mg/dL 03/03/17 09:45 Magnesium Oxide (Mag-Ox) 800 mg UNSCH PRN PO For Magnesium 1.2 - 1.6 mg/dL 03/03/17 09:45 Magnesium Sulfate 2 gm/Sodium Chloride 100 ml @ 50 mls/hr UNSCH PRN IV For Magnesium 1.2 - 1.6 mg/dL 03/03/17 09:45 Potassium Phosphate (K-Phos) 2,000 mg Q4H PRN PO For Phosphorus < 2.5 mg/dL 03/03/17 09:45 Sodium Phosphate 30 mmol/Sodium Chloride 250 ml @ 42 mls/hr UNSCH PRN IV For Phosphorus < 2.5 mg/dL 03/03/17 09:45 Potassium Phosphate (K-Phos) 2,000 mg UNSCH PRN PO/TUBE SEE LABEL COMMENTS 03/03/17 09:45 Potassium Phosphate 30 mmol/ Sodium Chloride 260 ml @ 42 mls/hr UNSCH PRN IV SEE LABEL COMMENTS 03/03/17 09:45 Furosemide (Lasix Inj) 40 mg Q12H IV PUSH 03/04/17 14:00 03/06/17 04:10 Metoprolol Tartrate (Lopressor) 25 mg BID PO 03/04/17 09:00 1/26/18 08:32 Linezolid (Zyvox) 600 mg Q12HR PO 03/04/17 09:00 03/06/17 21:01 03/06/17 08:33 Alprazolam (Xanax) 0.25 mg Q6H PRN PO anxiety 03/05/17 06:45 03/05/17 07:26 Ertapenem 1000 mg/ Sodium Chloride 100 ml @ 200 mls/hr Q24H IV 03/05/17 09:00 03/06/17 08:32 Dexmedetomidine HCl 200 mcg/ Sodium Chloride 50 ml @ 16.61 mls/ hr TITRATE PRN IV Desired RASS 03/06/17 13:00 03/06/17 12:39 Propofol 100 ml @ 4.983 mls/ hr TITRATE PRN IV SEDATION 03/06/17 12:30 03/06/17 12:13 Miscellaneous Information ALL NURSING DEPARTME... UNSCH PRN .XX SEE LABEL COMMENTS 03/06/17 11:58 03/07/17 11:57 OBJECTIVE: Vital Signs Date Time Temp Pulse Resp B/P (MAP) Pulse Ox O2 Delivery O2 Flow Rate FiO2 03/06/17 13:34 100 50 03/06/17 13:00 78 14 117/76 (90) 99 Mechanical Ventilator 50 03/06/17 13:00 50 03/06/17 12:45 97.6 79 14 119/74 (89) 99 Mechanical Ventilator 50 03/06/17 12:30 79 14 145/70 (95) 99 Mechanical Ventilator 50 03/06/17 12:19 97.6 74 14 103/64 (77) 99 Mechanical Ventilator 50 03/06/17 12:19 50 03/06/17 10:00 80 19 132/84 (100) 100 03/06/17 08:01 99 30 03/06/17 08:00 98.0 82 17 135/86 (102) 99 03/06/17 08:00 82 03/06/17 08:00 99 Bi-Pap 30 03/06/17 06:47 20 03/06/17 04:00 95 Bi-Pap 30 03/06/17 03:36 100 30 03/06/17 03:00 82 03/06/17 03:00 98.1 82 16 139/80 (99) 95 03/06/17 00:00 97.8 82 16 149/92 (111) 95 03/06/17 00:00 82 03/06/17 00:00 95 Bi-Pap 30 03/05/17 23:22 93 30 03/05/17 21:07 93 30 03/05/17 20:32 94 High Flow Nasal Cannula 25.00 50 03/05/17 19:00 83 03/05/17 19:00 98.6 83 22 109/65 (80) 95 03/05/17 19:00 95 Nasal Cannula 4.00 03/05/17 15:40 97 Nasal Cannula 4.00 03/05/17 15:37 98.4 81 18 129/77 (94) 92 03/05/17 15:00 81 Laboratory Tests Test 03/05/17 03:40 03/06/17 08:10 White Blood Count 13.3 TH/MM3 12.4 TH/MM3 Red Blood Count 3.14 MIL/MM3 3.03 MIL/MM3 Hemoglobin 9.5 GM/DL 9.4 GM/DL Hematocrit 28.5 % 27.7 % Mean Corpuscular Volume 90.8 FL 91.3 FL Mean Corpuscular Hemoglobin 30.4 PG 30.9 PG Mean Corpuscular Hemoglobin Concent 33.4 % 33.8 % Red Cell Distribution Width 16.6 % 16.3 % Platelet Count 144 TH/MM3 155 TH/MM3 Mean Platelet Volume 6.9 FL 6.5 FL CBC Comment AUTO DIFF AUTO DIFF Differential Total Cells Counted 100 100 Neutrophils % (Manual) 93 % 86 % Lymphocytes % 1 % 1 % Monocytes % 6 % 8 % Neutrophils # (Manual) 12.4 TH/MM3 11.3 TH/MM3 Nucleated Red Blood Cells 3 /100 WBC 2 /100 WBC Differential Comment FINAL DIFF MANUAL FINAL DIFF MANUAL Platelet Estimate LOW NORMAL Platelet Morphology Comment NORMAL NORMAL Band Neutrophils % 1 % Metamyelocytes 3 % Myelocytes 1 % Stomatocytes 1+ Laboratory Tests Test 03/04/17 16:45 03/05/17 03:40 03/06/17 08:10 Potassium Level 3.5 MEQ/L 3.6 MEQ/L 3.5 MEQ/L Blood Urea Nitrogen 33 MG/DL 40 MG/DL Creatinine 0.87 MG/DL 0.83 MG/DL Random Glucose 105 MG/DL 110 MG/DL Total Protein 6.5 GM/DL 6.3 GM/DL Albumin 2.7 GM/DL 2.7 GM/DL Calcium Level 8.7 MG/DL 9.0 MG/DL Magnesium Level 1.9 MG/DL 2.1 MG/DL Alkaline Phosphatase 84 U/L 79 U/L Aspartate Amino Transf (AST/SGOT) 47 U/L 41 U/L Alanine Aminotransferase (ALT/SGPT) 61 U/L 45 U/L Total Bilirubin 1.6 MG/DL 1.4 MG/DL Sodium Level 147 MEQ/L 144 MEQ/L Chloride Level 103 MEQ/L 101 MEQ/L Carbon Dioxide Level 37.6 MEQ/L 38.4 MEQ/L Anion Gap 6 MEQ/L 5 MEQ/L Estimat Glomerular Filtration Rate 66 ML/MIN 70 ML/MIN Microbiology Date/Time Source Procedure Growth Status 03/06/17 11:59 Abscess Other Fungal Smear Pending Received 03/06/17 11:59 Abscess Other Fungal Culture Pending Received 03/06/17 11:59 Abscess Other Acid Fast Stain Pending Received 03/06/17 11:59 Abscess Other Mycobacterial Culture Pending Received 03/06/17 11:59 Abscess Other Gram Stain Pending Received 03/06/17 11:59 Abscess Other Wound Culture Pending Received IMAGING: Chest X-Ray 03/06/17 0600 Signed Impressions: Service Date/Time: Monday, March 06, 2017 04:18 - CONCLUSION: 1. Cardiomegaly. 2. The floor lobe atelectasis, consolidation and/or effusion. 3. Patchy consolidation or atelectasis in the right perihilar region. Savage Victoria MD Chest X-Ray 03/05/17 0600 Signed Impressions: Service Date/Time: February 04:06 - CONCLUSION: 1. Persistent left lower lobe consolidation. 2. Improving infiltrates in the right. Kiet Rob MD Chest X-Ray 03/04/17 0000 Signed Impressions: Service Date/Time: Saturday, March 04, 2017 07:18 - CONCLUSION: 1. Cardiomegaly with positive fluid balance. 2. Patchy diffuse bilateral airspace disease slightly progressed in the right lung. Sonu Esparza MD Chest X-Ray 03/03/17 0600 Signed Impressions: Service Date/Time: Friday, March 03, 2017 04:52 - CONCLUSION: Increasing partially consolidative infiltrates in the right upper and right lower lung. Persistent lobar consolidation left lower lobe. Kiet Rob MD Chest X-Ray 03/02/17 0600 Signed Impressions: Service Date/Time: Thursday, March 02, 2017 03:47 - CONCLUSION: There is no subsegmental consolidative infiltrate in the right upper lobe. Persistent left lower lobe consolidation. Kiet Rob MD Angiography 02/27/17 1219 Signed Impressions: Service Date/Time: Monday, February 27, 2017 11:03 - CONCLUSION: No evidence of arterial injury and no findings to indicate site of bleeding to account for anterior abdominal wall hematoma. Savage Aranda MD Aorta CTA 02/26/17 0000 Signed Impressions: Service Date/Time: February 19:19 - CONCLUSION: 1. Large anterior abdominal wall hematoma. 2. No aortic dissection or aneurysm. 3. Changes involving the liver suggesting cirrhosis. 4. Cholelithiasis. 5. Bibasilar atelectasis. 6. Cardiomegaly. Kiet Camarena Jr., MD Neck CTA 02/22/17 0000 Signed Impressions: Service Date/Time: Wednesday, February 22, 2017 06:25 - CONCLUSION: 1. Prominent atherosclerotic disease at carotid bulbs resulting in approximately 70%% stenosis of the proximal right ICA at its origin and approximately 40-50%% stenosis of the proximal left ICA. 2. Moderate grade stenosis of the proximal left common carotid artery at its origin. Gurdeep Laird MD Head CTA 02/22/17 0000 Signed Impressions: Service Date/Time: Wednesday, February 22, 2017 06:25 - CONCLUSION: No evidence of proximal high-grade stenosis or occlusion. Gurdeep Laird MD Head CT 02/22/17 0000 Signed Impressions: Service Date/Time: Wednesday, February 22, 2017 06:25 - CONCLUSION: Normal examination for a patient of this age. No significant change has occurred. Billy Weems MD PHYSICAL EXAMINATION: GENERAL: On the vent. HEENT: No icterus. Moist mucosa. NECK: No swelling or adenopathy. LUNGS: Bilateral rhonchi. Breath sounds decreased. HEART: Irregular rate and rhythm. No murmurs audible. ABDOMEN: Distended. Soft, non tender. EXTREMITIES: No clubbing or cyanosis or edema. SKIN: No diffuse rash. NEUROLOGIC: Non focal. PSYCH: calm and cooperative. IMPRESSION 1. Hemorrhagic shock. Patient developed hypotension and tachycardia and abdominal wall hematoma. Post evacuation of large clotted blood from abdomen. 2. Leukocytosis. 3. Acute kidney disease. The patient received contrast for radiographic study and also she was hypotensive and may have had also hypotensive insult to the kidney. improving. 4. Lung infiltrate. VAP. E.coli. 5. Multiple antibiotic allergies. RECOMMENDATIONS 1. Continue Ertapenem. 2. Continue Zyvox. 3. Monitor abdominal culture. 4. Monitor clinical status. 5. Monitor WBC. Antonio Tobar MD Mar 06, 2017 14:02
--- NOTE | 2017-03-06 14:05 | PD.CAR.PN ---
CVT Progress Note Subjective/Hospital Course: referral received full consult TF Nancy Patient stable now Neurologically remains intact The dizziness and vertigo she had is now gone in this more and more looks like a TIA Neurology consult greatly appreciated At this point agree with neurologist and I will address carotid artery while patient still in the hospital Patient is known to cardiac problems and I reviewed her echocardiogram Cardiology consulted, spoken to Dr Juarez. All things equal for right carotid endarterectomy after cardiac cath, likely Thursday or Thursday02/26/17 Patient doing better now Vertigo is gone She underwent cardiac catheterization today which reveals patent coronary vessels and fairly normal intracardiac pressures Have discussed this with Dr. Juarez At this point patient is a moderate high risk for carotid endarterectomy In face of 70% stenosis in neurologic symptoms I'm hard pressed not to offer patient to surgery as an option Patient for right carotid endarterectomy tomorrow 03/04/17 Patient now on face mask and was on BiPAP mask yesterday Abdomen is soft active bowel sounds and lower abdomen is still distended and firm I discussed care with Dr. Wan and the is clearly would be advisable to do this surgery without intubating the patient but I do not believe that this is possible due to the huge size of this Considering patient's precarious respiratory status we decided to wait another day and take the patient to the operating room Thursday for washout 03/05/17 Patient doing fairly well She is on partial rebreather mask Abdomen is soft active bowel sounds Discussed the case with Dr. Wan and we jointly made the decision to take patient to the operating room tomorrow for washout and evacuation of this large preperitoneal hematoma before it gets infected 03/06/17 Patient underwent evacuation of an enormous the properitoneal hematoma of about 1 gallon of old blood For details see operative note Patient will be draining for a while from this incision and JPs remain in place Expect significant amount of drainage from the wound considering the proximity to the skin Unfortunately patient had to be intubated for the procedure and clearly will have now be weaned gradually of the ventilator again Objective: Vital Signs Date Time Temp Pulse Resp B/P (MAP) Pulse Ox O2 Delivery O2 Flow Rate FiO2 03/06/17 13:34 100 50 03/06/17 13:00 78 14 117/76 (90) 99 Mechanical Ventilator 50 03/06/17 13:00 50 03/06/17 12:45 97.6 79 14 119/74 (89) 99 Mechanical Ventilator 50 03/06/17 12:30 79 14 145/70 (95) 99 Mechanical Ventilator 50 03/06/17 12:19 97.6 74 14 103/64 (77) 99 Mechanical Ventilator 50 03/06/17 12:19 50 03/06/17 10:00 80 19 132/84 (100) 100 03/06/17 08:01 99 30 03/06/17 08:00 98.0 82 17 135/86 (102) 99 03/06/17 08:00 82 03/06/17 08:00 99 Bi-Pap 30 03/06/17 06:47 20 03/06/17 04:00 95 Bi-Pap 30 03/06/17 03:36 100 30 03/06/17 03:00 82 03/06/17 03:00 98.1 82 16 139/80 (99) 95 03/06/17 00:00 97.8 82 16 149/92 (111) 95 03/06/17 00:00 82 03/06/17 00:00 95 Bi-Pap 30 03/05/17 23:22 93 30 03/05/17 21:07 93 30 03/05/17 20:32 94 High Flow Nasal Cannula 25.00 50 03/05/17 19:00 83 03/05/17 19:00 98.6 83 22 109/65 (80) 95 03/05/17 19:00 95 Nasal Cannula 4.00 03/05/17 15:40 97 Nasal Cannula 4.00 03/05/17 15:37 98.4 81 18 129/77 (94) 92 03/05/17 15:00 81 Labs: Laboratory Tests Test 03/06/17 08:10 White Blood Count 12.4 TH/MM3 (4.0-11.0) Red Blood Count 3.03 MIL/MM3 (4.00-5.30) Hemoglobin 9.4 GM/DL (11.6-15.3) Hematocrit 27.7 % (35.0-46.0) Mean Corpuscular Volume 91.3 FL (80.0-100.0) Mean Corpuscular Hemoglobin 30.9 PG (27.0-34.0) Mean Corpuscular Hemoglobin Concent 33.8 % (32.0-36.0) Red Cell Distribution Width 16.3 % (11.6-17.2) Platelet Count 155 TH/MM3 (150-450) Mean Platelet Volume 6.5 FL (7.0-11.0) CBC Comment AUTO DIFF Differential Total Cells Counted 100 Neutrophils % (Manual) 86 % (16-70) Band Neutrophils % 1 % (0-6) Lymphocytes % 1 % (9-44) Monocytes % 8 % (0-8) Neutrophils # (Manual) 11.3 TH/MM3 (1.8-7.7) Metamyelocytes 3 % (0-1) Myelocytes 1 % (0-0) Nucleated Red Blood Cells 2 /100 WBC (0-0) Differential Comment FINAL DIFF MANUAL Platelet Estimate NORMAL (NORMAL) Platelet Morphology Comment NORMAL (NORMAL) Stomatocytes 1+ (NORMAL) Blood Urea Nitrogen 40 MG/DL (7-18) Creatinine 0.83 MG/DL (0.50-1.00) Random Glucose 110 MG/DL (74-106) Total Protein 6.3 GM/DL (6.4-8.2) Albumin 2.7 GM/DL (3.4-5.0) Calcium Level 9.0 MG/DL (8.5-10.1) Magnesium Level 2.1 MG/DL (1.5-2.5) Alkaline Phosphatase 79 U/L (45-117) Aspartate Amino Transf (AST/SGOT) 41 U/L (15-37) Alanine Aminotransferase (ALT/SGPT) 45 U/L (10-53) Total Bilirubin 1.4 MG/DL (0.2-1.0) Sodium Level 144 MEQ/L (136-145) Potassium Level 3.5 MEQ/L (3.5-5.1) Chloride Level 101 MEQ/L (98-107) Carbon Dioxide Level 38.4 MEQ/L (21.0-32.0) Anion Gap 5 MEQ/L (5-15) Estimat Glomerular Filtration Rate 70 ML/MIN (>89) Result Diagram: 03/06/17 0810 03/06/17 0810 (1) PVD (peripheral vascular disease) (2) Anemia (3) Abdominal hematoma (4) Obesity (5) SOB (shortness of breath) (6) Hx of coronary artery disease (7) Atrial fibrillation (8) DM (diabetes mellitus) (9) Carotid stenosis (10) History of four vessel coronary artery bypass graft Problem Qualifiers (1) Atrial fibrillation: Qualified Codes: I48.0 - Paroxysmal atrial fibrillation Chin Alcazar MD Mar 06, 2017 14:05
--- NOTE | 2017-03-06 19:59 | HHI.CCPN ---
Subjective Remarks/Hospital Course 61-year-old female with a past medical history significant for CAD status post CABG, atrial fibrillation, diabetes mellitus, polycystic kidney disease, CHF ( echo with EF of 55-60% in 2015), hypertension, hyperlipidemia and hypothyroidism presents to the emergency department complaining of dizziness and falling. Her CT of the neck show 70% occlusive disease off right carotid artery and she was planned to undergo right carotid endarterectomy. Further vascular procedures she underwent elective cardiac catheterization that shows patent vessels without significant obstructive disease. Shortly after procedure patient developed severe hypotension and tachycardia with systolic blood pressure at 60s and significant decrease in hemoglobin. She was taken emergently to CT of the abdomen/aorta runoff, the didn't show any dissection or aneurysm however shows large hematoma of abdominal wall. SUBJ 02/27: Remains in profound shock. ON Levophed 20, Jaron 100, Vasopressin 0.04. Received total of 8 units of PRBC, 4 units of FFP to pack units of platelets and 2 cryo. Hb after 5U PRBC was 8.7 at 3 am. Discussed with vascular surgery Dr. Oliva re possible surgical intervention. Patient is also on chronic steroids prednisone 5 mg twice a day (for RA trial per patient). I will give 200 mg IV hydrocortisone STAT followed by 100 mg every 8 hours. Also change Synthroid to 75 g IV daily. Pain improved with Dilaudid. Will place on PRN Dilaudid. UO 400 ml overnight. Check bladder pressure 02/28: Remains intubated critically ill FiO2 at 60%. Remains on Jaron-Synephrine at 30 mcg/m, vasopressin at 0.04 international units per minute. Receive 2 units of PRBC for hemoglobin of 7.6 overnight. Today 9.3. Creatinine has increased to 2.14. Urine output 575 mg in 24 hours. 03/01: Remains critically ill on vasopressin. Received 2 units of PRBC for hemoglobin 7.6. Urine output increased with diuretics. 1.5 L in 24 hours, creatinine stable to slightly improved. Given Lasix 80 mg IV 1 now with potassium replacement. Start weaning trials again 03/02: Extubated yesterday but required BiPAP overnight. Becomes hypoxic and short of breath when BiPAP was weaned. Hemodynamically improved remains on 0.01 vasopressin. Hb 10. Urine output 3 L with Lasix creatinine improved to 1.6. Significant positive fluid balance. Lasix increased 03/03: Was on BiPAP overnight currently on nonrebreather. Maintaining saturation about 90%. Chest x-ray showing worsening infiltrate new extensive right-sided infiltrates persistent left lower lobe consolidation. Zyvox restarted. Creatinine Endo has improved from 1.6-1.08, white count has improved from 17.3-13.7. Urine output 3.7 L in 24 hours 03/04: Requiring BiPAP at night but FiO2 requirement has been reduced to 40%. Breathing appears more comfortable hemoglobin stable at 9.1. Urine output 4.1 L in 24 hours creatinine has come down to 0.9. At this time will wean to DC amiodarone start by mouth amiodarone start by mouth metoprolol change linezolid to by mouth. Dr. Cruz planning on abdominal hematoma evacuation later this week. 03/05: Sitting up in bed on high flow nasal cannula at 50% FiO2. Breathing slightly improved. Sputum culture 03/02/17 growing Escherichia coli which is multidrug necessary. Discontinue Zosyn and start Invanz 1 g daily. DC Zyvox tomorrow. Continue IV Lasix given additional dose of Diamox 500 mg IV x1 03/06: taken to OR and evacuated > 2L blood from hematoma. remains intubated post -operatively. hgb stable. Objective Vital Signs Date Time Temp Pulse Resp B/P (MAP) Pulse Ox O2 Delivery O2 Flow Rate FiO2 03/06/17 16:00 97.7 82 14 102/66 (78) 100 03/06/17 16:00 Mechanical Ventilator 50 03/05/17 20:32 25.00 Intake and Output 03/06/17 03/06/17 03/07/17 08:00 16:00 00:00 Intake Total 528 ml Output Total 800 ml 565 ml 1390 ml Balance -800 ml -37 ml -1390 ml Result Diagram: 03/06/17 0810 03/06/17 0810 Imaging Last 24 hours Impressions Chest X-Ray 02/26/17 1812 Signed Impressions: Service Date/Time: February 18:12 - CONCLUSION: Stable exam with cardiomegaly and left basilar atelectasis. Kiet Camarena Jr., MD Aorta CTA 02/26/17 0000 Signed Impressions: Service Date/Time: February 19:19 - CONCLUSION: 1. Large anterior abdominal wall hematoma. 2. No aortic dissection or aneurysm. 3. Changes involving the liver suggesting cirrhosis. 4. Cholelithiasis. 5. Bibasilar atelectasis. 6. Cardiomegaly. Kiet Camarena Jr., MD Objective Remarks GENERAL: Morbidly obese patient. intubated, sedated. SKIN: Warm and dry. Ecchymosis lower abdomen HEAD: Normocephalic. NECK: Supple, trachea midline. CARDIOVASCULAR: NSR with occasional PVCs. RESPIRATORY: intubated. PRVC. 40% fio2. equal chest rise. GASTROINTESTINAL: Abdomen distended tender to palpation in the lower abdomen. Ecchymosis lower abdomen MUSCULOSKELETAL: No cyanosis NEURO EXAM: RASS -3. sedated, intubated. withdraws x 4. A/P Assessment and Plan Neuro: TIA - Xanax 0.25 mg every 6 hours when necessary for anxiety - Dilaudid and oxycodone when necessary for pain control - Previously planned CEA postponed indefinitely - propofol as needed for goal RASS -2. CVA/Heme: Hemorrhagic shock-resolved Large anterior abdominal wall/rectus sheath hematoma post cardiac catheterization-resolved. Atrial fibrillation with RVR, no wNSR - Status post approximately 14 units PRBC, 4 units of FFP, 2 units of platelets , 2 cryo, including 2 units of PRBC - Monitor hemoglobin, coags - Anterior abdominal wall hematoma on CTA. No active leak - s/p abdominal wall hematoma evacuation 03/[address] Zhang - Jazzy to 40 q12. Resumed home aldactone 12.5 daily 03/04. continue diamox 500mg iv q8h. - At home On chronic prednisone 5 mg twice a day. Continue stress dose steroids reduced to 50 mg IV every 8 hours 03/03/17, start slow taper back down to daily prednisone dose. - Synthroid to IV 75 g daily-changed to home dose 200 g daily from 03/04/17 - NSR, On amiodarone 200 mg po daily form 03/04/17 after infusion was discontinued - Metoprolol at a lower dose 25 mg twice a day - Hold anticoagulation due to blood loss. Hold all antiplatelet therapy - 2D Echo Normal left ventricular size. LVEF 50-55%. Resp: Acute hypoxemic respiratory failure Acute COPD exacerbation Healthcare associated pneumonia/ MDR E Coli - Intubated by anesthesia for angiography, Extubated 03/01 but requiring BiPAP PRN and night. intubated for hematoma evacuation 03/05 - CXR resolving slowly improving infiltrates - DuoNeb every 4 hours and when necessary - Symbicort and Spiriva. Receiving steroids as hydrocortisone wean fio2 as tolerated for goal spo2 > 90% - start SBT tomorrow - nebs, vent bundle, hob elevated. GI: Transaminitis-improving - start TF. - Abdominal wall hematoma management as above - Elevated liver enzymes secondary to shock-now improving : Acute on chronic kidney failure - Acute kidney failure secondary to ATN, steadily improving - IV Lasix, Diamox as above, Aldactone 12.5 mg daily - Creatinine actually improving with diuresis ID Healthcare associated pneumonia with MDR E Coli - DC Zosyn, start Invanz 1 g daily 03/05/17 - DC Zyvox 03/06/17 - ID Dr Tobar Endo: - Continue Synthroid 200 g daily DVT GI prophylaxis - Teds/SCDs - Hold pharmacological DVT prophylaxis due to acute blood loss - PPI Overall impression: morbidly obese. recurrent respiratory failure. very difficult to wean from mechanical ventilation and now with recurrent intubation from hematoma drainage. critically ill and off pathway. likely will require prolonged mechanical ventilation for recurrent intubation. respiratory failure with acute debilitation and deconditioning. volume overload and electrolyte derangements persist, complicating organ dysfunction. Critical care time: 31 minutes, exclusive of separately billable procedures. Gigi Roberts MD Mar 06, 2017 19:59
[2017-03-06] MEDS: ATORVASTATIN 40 MG TAB PO SCH (21:37)
[2017-03-07] VITALS (13 sets, daily range): BP systolic 113–128; BP diastolic 63–90; PULSE 78–84; RESP 14–23; TEMP 97.8–98.9; O2SAT 95–100
[2017-03-07] MEDS: RESP: ALBUTEROL 2.5 MG/IPRATROPIUM 0.5 MG NEB (PRN) NEB ×2 (00:04→04:13)
[2017-03-07] MEDS: PROPOFOL 1000 MG/100 ML IV PRN ×2 (01:24→06:22)
[2017-03-07] MEDS: FUROSEMIDE 40 MG/4 ML VIAL IV PUSH SCH ×2 (01:26→12:42)
[2017-03-07] MEDS: POTASSIUM CHLOR 40 MEQ PREMIX 100 ML IV PRN ×2 (01:32→09:45)
[2017-03-07] MEDS: LEVOTHYROXINE SODIUM 200 MCG TAB PO SCH (06:29)
[2017-03-07 06:48] LABS: HEMATOCRIT 26.5 % (35.0-46.0); MEAN CORPUSCULAR HEMOGLOBIN 31.2 PG (27.0-34.0); MEAN CORPUSCULAR HGB CONC 33.9 % (32.0-36.0); MEAN PLATELET VOLUME 6.8 FL (7.0-11.0); PLATELET COUNT 125 TH/MM3 (150-450); RED BLOOD COUNT 2.89 MIL/MM3 (4.00-5.30); RED CELL DISTRIBUTION WIDTH 16.4 % (11.6-17.2)
[2017-03-07 07:13] LABS: CALCIUM 9.1 MG/DL (8.5-10.1); CREATININE 0.88 MG/DL (0.50-1.00)
[2017-03-07] MEDS: SPIRONOLACTONE 25 MG TAB PO SCH (08:59)
[2017-03-07] MEDS: AMIODARONE 200 MG TAB PO SCH (08:59)
[2017-03-07] MEDS: METOPROLOL TARTRATE 25 MG TAB PO SCH ×2 (09:00→20:38)
[2017-03-07] MEDS: SODIUM CHLORIDE 0.9% FLUSH 10 ML FLUSH IV FLUSH SCH ×2 (09:00→20:39)
[2017-03-07] MEDS: PANTOPRAZOLE SODIUM 40 MG VIAL IV PUSH SCH ×2 (09:00→20:38)
[2017-03-07] MEDS: ISOSORBIDE MONONITRATE 30 MG TAB PO SCH (09:00)
[2017-03-07] MEDS: HYDROCORTISONE SOD SUCCINATE 100 MG VIAL IV SCH ×2 (09:01→20:38)
--- NOTE | 2017-03-07 11:25 | PD.CARD.PN ---
Subjective Subjective Remarks intubated, 0n 40% O2, sedated in nad Objective Medications Current Medications Medications (Trade) Dose Ordered Sig/Alexa Route Start Time Stop Time Status Last Admin (Aspirin) 325 mg DAILY PO 02/23/17 09:00 Future Hold 02/25/17 08:24 (NovoLOG SUPPLEMENTAL SCALE) 1 ACHS SQ 02/22/17 12:00 02/28/17 22:00 (D50w (Vial) Inj) 50 ml UNSCH PRN IV PUSH 02/22/17 09:45 (Glucagon Inj) 1 mg UNSCH PRN OTHER 02/22/17 09:45 (Cordarone) 200 mg DAILY PO 02/23/17 09:00 Future hold 03/07/17 08:59 (Lipitor) 40 mg HS PO 02/22/17 21:00 03/06/17 21:37 (Bumetanide) 1 mg DAILY PO 02/23/17 09:00 Future Hold (Imdur) 30 mg DAILY@0700 PO 02/23/17 07:00 03/07/17 09:00 (Synthroid) 200 mcg DAILY@0600 PO 02/23/17 06:00 Future hold 03/07/17 06:29 (Entresto 97-103 Mg) 1 tab BID PO 02/22/17 21:00 Future Hold 02/22/17 21:16 (Aldactone) 12.5 mg DAILY PO 02/23/17 09:00 Future hold 03/07/17 08:59 (Effexor Xr) 75 mg DAILY PO 02/23/17 09:00 Future Hold 03/03/17 08:53 (Pill Splitter) 1 ea UNSCH PRN OTHER 02/22/17 11:00 ([place] 5-325 Mg) 1 tab Q6H PRN PO 02/22/17 13:00 03/05/17 12:27 (Deltasone) 5 mg BID PO 02/22/17 21:00 Future Hold 02/26/17 09:19 (NS Flush) 2 ml BID IV FLUSH 02/26/17 21:00 03/07/17 09:00 (NS Flush) 2 ml UNSCH PRN IV FLUSH 02/26/17 16:15 (Brethine Inj) 1 mg UNSCH PRN SQ 02/26/17 22:00 (Zofran Inj) 4 mg Q4H PRN IV PUSH 02/26/17 23:00 (Brethine Inj) 1 mg UNSCH PRN SQ 02/27/17 00:15 (Protonix Inj) 40 mg Q12H IV PUSH 02/27/17 08:00 03/07/17 09:00 (Dilaudid Pf Inj) 1 mg Q3H PRN IV PUSH 02/27/17 07:15 03/06/17 06:17 (KCl) 20 meq Q12HR PO 03/01/17 21:00 03/05/17 20:50 (Duoneb Neb) 1 ampule Q2HR NEB PRN NEB 03/02/17 08:15 03/07/17 04:13 (Symbicort 160-4.5 Mcg Inh) 2 puff Q12HR INH 03/02/17 09:00 03/05/17 20:51 (Spiriva Inh) 18 mcg DAILY INH 03/02/17 09:00 03/05/17 09:00 Potassium Chloride 100 ml @ 50 mls/hr Q2H PRN IV 03/03/17 09:45 03/03/17 11:40 Potassium Chloride 100 ml @ 50 mls/hr Q2H PRN IV 03/03/17 09:45 (K-Lyte Cl Eff) 50 meq UNSCH PRN PO 03/03/17 09:45 Potassium Chloride 100 ml @ 25 mls/hr UNSCH PRN IV 03/03/17 09:45 03/07/17 09:45 Potassium Chloride 100 ml @ 50 mls/hr Q2H PRN IV 03/03/17 09:45 Magnesium Sulfate 4 gm/Sodium Chloride 100 ml @ 50 mls/hr UNSCH PRN IV 03/03/17 09:45 (Mag-Ox) 800 mg UNSCH PRN PO 03/03/17 09:45 Magnesium Sulfate 2 gm/Sodium Chloride 100 ml @ 50 mls/hr UNSCH PRN IV 03/03/17 09:45 (K-Phos) 2,000 mg Q4H PRN PO 03/03/17 09:45 Sodium Phosphate 30 mmol/Sodium Chloride 250 ml @ 42 mls/hr UNSCH PRN IV 03/03/17 09:45 (K-Phos) 2,000 mg UNSCH PRN PO/TUBE 03/03/17 09:45 Potassium Phosphate 30 mmol/ Sodium Chloride 260 ml @ 42 mls/hr UNSCH PRN IV 03/03/17 09:45 (Lasix Inj) 40 mg Q12H IV PUSH 03/04/17 14:00 03/07/17 01:26 (Lopressor) 25 mg BID PO 03/04/17 09:00 03/07/17 09:00 (Xanax) 0.25 mg Q6H PRN PO 03/05/17 06:45 03/05/17 07:26 Ertapenem 1000 mg/ Sodium Chloride 100 ml @ 200 mls/hr Q24H IV 03/05/17 09:00 03/06/17 08:32 Dexmedetomidine HCl 200 mcg/ Sodium Chloride 50 ml @ 16.61 mls/ hr TITRATE PRN IV 03/06/17 13:00 03/06/17 12:39 Propofol 100 ml @ 4.983 mls/ hr TITRATE PRN IV 03/06/17 12:30 03/07/17 06:22 Miscellaneous Information ALL NURSING DEPARTME... UNSCH PRN .XX 03/06/17 11:58 03/07/17 11:57 (SoluCORTEF INJ) 50 mg Taper Q12HR IV 03/06/17 21:00 03/12/17 20:59 03/07/17 09:01 (Diamox Inj) 500 mg Q8H IV PUSH 03/06/17 20:00 03/07/17 12:01 03/07/17 03:48 (Deltasone) 5 mg DAILY PO 03/13/17 09:00 Vital Signs / I&O Vital Signs Date Time Temp Pulse Resp B/P (MAP) Pulse Ox O2 Delivery O2 Flow Rate FiO2 03/07/17 08:00 98.9 81 14 113/68 (83) 100 03/07/17 08:00 81 03/07/17 08:00 40 03/07/17 07:59 100 40 03/07/17 04:13 100 40 03/07/17 04:00 100 Mechanical Ventilator 40 03/07/17 04:00 40 03/07/17 04:00 83 03/07/17 04:00 98.6 83 14 116/73 (87) 100 03/07/17 00:04 100 40 03/07/17 00:00 40 03/07/17 00:00 98.5 82 14 126/90 (102) 100 03/07/17 00:00 84 03/07/17 00:00 100 Mechanical Ventilator 50 03/06/17 20:21 100 40 03/06/17 20:00 100 Mechanical Ventilator 50 03/06/17 20:00 40 03/06/17 20:00 98.4 82 14 120/84 (96) 100 03/06/17 20:00 84 03/06/17 16:00 97.7 82 14 102/66 (78) 100 03/06/17 16:00 100 Mechanical Ventilator 50 03/06/17 16:00 82 03/06/17 15:46 100 40 03/06/17 13:34 100 50 03/06/17 13:30 40 03/06/17 13:00 78 14 117/76 (90) 99 Mechanical Ventilator 50 03/06/17 13:00 50 03/06/17 12:45 97.6 79 14 119/74 (89) 99 Mechanical Ventilator 50 03/06/17 12:30 79 14 145/70 (95) 99 Mechanical Ventilator 50 03/06/17 12:19 97.6 74 14 103/64 (77) 99 Mechanical Ventilator 50 03/06/17 12:19 50 03/06/17 12:05 100 60 I/O 03/06/17 03/06/17 03/06/17 03/07/17 03/07/17 03/07/17 07:00 15:00 23:00 07:00 15:00 23:00 Intake Total 528 ml 100 ml 100 ml Output Total 800 ml 565 ml 1390 ml 2245 ml Balance -800 ml -37 ml -1290 ml -2145 ml IV Total 28 ml 100 ml 100 ml Other 500 ml Output Urine Total 800 ml 400 ml 850 ml 1750 ml Drainage Total 160 ml 540 ml 495 ml Estimated Blood Loss 5 ml # Bowel Movements 0 1 0 Physical Exam GENERAL: SKIN: Warm and dry. HEAD: Normocephalic. EYES: No scleral icterus. No injection or drainage. NECK: Supple, trachea midline. No JVD or lymphadenopathy. CARDIOVASCULAR: Regular rate and rhythm without murmurs, gallops, or rubs. RESPIRATORY: Breath sounds equal bilaterally. No accessory muscle use. GASTROINTESTINAL: Abdomen soft, non-tender, nondistended. MUSCULOSKELETAL: No cyanosis, or edema. BACK: Nontender without obvious deformity. No CVA tenderness. Laboratory Laboratory Tests Test 03/07/17 06:29 White Blood Count 11.0 TH/MM3 Red Blood Count 2.89 MIL/MM3 Hemoglobin 9.0 GM/DL Hematocrit 26.5 % Mean Corpuscular Volume 92.0 FL Mean Corpuscular Hemoglobin 31.2 PG Mean Corpuscular Hemoglobin Concent 33.9 % Red Cell Distribution Width 16.4 % Platelet Count 125 TH/MM3 Mean Platelet Volume 6.8 FL Blood Urea Nitrogen 35 MG/DL Creatinine 0.88 MG/DL Random Glucose 105 MG/DL Calcium Level 9.1 MG/DL Sodium Level 145 MEQ/L Potassium Level 3.3 MEQ/L Chloride Level 101 MEQ/L Carbon Dioxide Level 39.0 MEQ/L Anion Gap 5 MEQ/L Estimat Glomerular Filtration Rate 66 ML/MIN Assessment and Plan Problem List: (1) PVD (peripheral vascular disease) ICD Codes: I73.9 - Peripheral vascular disease, unspecified (2) Anemia ICD Codes: D64.9 - Anemia, unspecified (3) Abdominal hematoma ICD Codes: S30.1XXA - Contusion of abdominal wall, initial encounter (4) Obesity ICD Codes: E66.9 - Obesity Status: Acute (5) SOB (shortness of breath) ICD Codes: R06.02 - SOB (shortness of breath) Status: Acute (6) Hx of coronary artery disease ICD Codes: Z86.79 - Personal history of other diseases of the circulatory system (7) Atrial fibrillation ICD Codes: I48.91 - Atrial fibrillation Status: Chronic (8) DM (diabetes mellitus) ICD Codes: E11.9 - DM (diabetes mellitus) Status: Chronic (9) Carotid stenosis ICD Codes: I65.29 - Occlusion and stenosis of unspecified carotid artery (10) History of four vessel coronary artery bypass graft ICD Codes: Z95.1 - Presence of aortocoronary bypass graft Assessment and Plan 1.) CAD - i could not image lyles, ow good flow to iw, lw, anterior wall with good wall motion but cant rule out lyles or lad disease therefore patient is moderate to high risk for noncardiac surgery, d/w Dr Cruz 2.) abdominal hematoma - rp bleed and groin hematoma ruled out, arterial injury and active bleeding from cath ruled out by angio 02/27/17, still requiring transfusion despite angiogram demonstrating no arterial injury or active bleeding suggesting bleeding is a local abdominal source, possibly due to lovenox injections, would explain why bleeding not tamponading as adipose tissue would lower resistance than rp or groin, still requiring transfusion and pressors but mental status good and u/o > 300/shift; d/w Dr Schafer 02/28/18 3.) PAF - in af rate controlled this am hr @ 85, ac held due to abdominal hematoma 4.) Carotid stenosis - surgery postponed due to abdominal hematoma 5.) Anemia - hgb stablelizing, creatinine improving, u/o increasing on lasix, continue to monitor hgb; hematoma evacuation per Dr Cruz 6.) pod #1 hematoma evacuation - hemodynamically stable on minimal O2, 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
--- NOTE | 2017-03-07 12:02 | PD.CAR.PN ---
CVT Progress Note Subjective/Hospital Course: referral received full consult TF Nancy Patient stable now Neurologically remains intact The dizziness and vertigo she had is now gone in this more and more looks like a TIA Neurology consult greatly appreciated At this point agree with neurologist and I will address carotid artery while patient still in the hospital Patient is known to cardiac problems and I reviewed her echocardiogram Cardiology consulted, spoken to Dr Juarez. All things equal for right carotid endarterectomy after cardiac cath, likely Thursday or Thursday02/26/17 Patient doing better now Vertigo is gone She underwent cardiac catheterization today which reveals patent coronary vessels and fairly normal intracardiac pressures Have discussed this with Dr. Juarez At this point patient is a moderate high risk for carotid endarterectomy In face of 70% stenosis in neurologic symptoms I'm hard pressed not to offer patient to surgery as an option Patient for right carotid endarterectomy tomorrow 03/04/17 Patient now on face mask and was on BiPAP mask yesterday Abdomen is soft active bowel sounds and lower abdomen is still distended and firm I discussed care with Dr. Wan and the is clearly would be advisable to do this surgery without intubating the patient but I do not believe that this is possible due to the huge size of this Considering patient's precarious respiratory status we decided to wait another day and take the patient to the operating room Thursday for washout 03/05/17 Patient doing fairly well She is on partial rebreather mask Abdomen is soft active bowel sounds Discussed the case with Dr. Wan and we jointly made the decision to take patient to the operating room tomorrow for washout and evacuation of this large preperitoneal hematoma before it gets infected 03/06/17 Patient underwent evacuation of an enormous the properitoneal hematoma of about 1 gallon of old blood For details see operative note Patient will be draining for a while from this incision and JPs remain in place Expect significant amount of drainage from the wound considering the proximity to the skin Unfortunately patient had to be intubated for the procedure and clearly will have now be weaned gradually of the ventilator again 03/07/17 As above noted drained about 1 gallon of old; it coagulated blood from the preperitoneal space Drains placed and these will be draining for a while Drainage from the wound is expected considering the thin layer between the properitoneal space and the skin. Continue current care and change dressings as needed Nothing to add to care right now from surgical point Objective: Vital Signs Date Time Temp Pulse Resp B/P (MAP) Pulse Ox O2 Delivery O2 Flow Rate FiO2 03/07/17 11:50 99 40 03/07/17 11:30 40 03/07/17 08:00 98.9 81 14 113/68 (83) 100 03/07/17 08:00 81 03/07/17 08:00 40 03/07/17 07:59 100 40 03/07/17 04:13 100 40 03/07/17 04:00 100 Mechanical Ventilator 40 03/07/17 04:00 40 03/07/17 04:00 83 03/07/17 04:00 98.6 83 14 116/73 (87) 100 03/07/17 00:04 100 40 03/07/17 00:00 40 03/07/17 00:00 98.5 82 14 126/90 (102) 100 03/07/17 00:00 84 03/07/17 00:00 100 Mechanical Ventilator 50 03/06/17 20:21 100 40 03/06/17 20:00 100 Mechanical Ventilator 50 03/06/17 20:00 40 03/06/17 20:00 98.4 82 14 120/84 (96) 100 03/06/17 20:00 84 03/06/17 16:00 97.7 82 14 102/66 (78) 100 03/06/17 16:00 100 Mechanical Ventilator 50 03/06/17 16:00 82 03/06/17 15:46 100 40 03/06/17 13:34 100 50 03/06/17 13:30 40 03/06/17 13:00 78 14 117/76 (90) 99 Mechanical Ventilator 50 03/06/17 13:00 50 03/06/17 12:45 97.6 79 14 119/74 (89) 99 Mechanical Ventilator 50 03/06/17 12:30 79 14 145/70 (95) 99 Mechanical Ventilator 50 03/06/17 12:19 97.6 74 14 103/64 (77) 99 Mechanical Ventilator 50 03/06/17 12:19 50 03/06/17 12:05 100 60 Labs: Laboratory Tests Test 03/07/17 06:29 White Blood Count 11.0 TH/MM3 (4.0-11.0) Red Blood Count 2.89 MIL/MM3 (4.00-5.30) Hemoglobin 9.0 GM/DL (11.6-15.3) Hematocrit 26.5 % (35.0-46.0) Mean Corpuscular Volume 92.0 FL (80.0-100.0) Mean Corpuscular Hemoglobin 31.2 PG (27.0-34.0) Mean Corpuscular Hemoglobin Concent 33.9 % (32.0-36.0) Red Cell Distribution Width 16.4 % (11.6-17.2) Platelet Count 125 TH/MM3 (150-450) Mean Platelet Volume 6.8 FL (7.0-11.0) Blood Urea Nitrogen 35 MG/DL (7-18) Creatinine 0.88 MG/DL (0.50-1.00) Random Glucose 105 MG/DL (74-106) Calcium Level 9.1 MG/DL (8.5-10.1) Sodium Level 145 MEQ/L (136-145) Potassium Level 3.3 MEQ/L (3.5-5.1) Chloride Level 101 MEQ/L (98-107) Carbon Dioxide Level 39.0 MEQ/L (21.0-32.0) Anion Gap 5 MEQ/L (5-15) Estimat Glomerular Filtration Rate 66 ML/MIN (>89) Result Diagram: 03/07/1762803/07/17628 (1) PVD (peripheral vascular disease) (2) Anemia (3) Abdominal hematoma (4) Obesity (5) SOB (shortness of breath) (6) Hx of coronary artery disease (7) Atrial fibrillation (8) DM (diabetes mellitus) (9) Carotid stenosis (10) History of four vessel coronary artery bypass graft Problem Qualifiers (1) Atrial fibrillation: Qualified Codes: I48.0 - Paroxysmal atrial fibrillation Chin Alcazar MD Mar 07, 2017 12:02
[2017-03-07] MEDS: ERTAPENEM INJ 1,000 MG in SODIUM CHLORIDE 0.9% INJ 100 ML IV SCH (12:41)
[2017-03-07] MEDS: ACETAMINOPHEN/HYDROcodone 325 MG/5 MG TAB PO PRN ×2 (12:44→21:06)
--- NOTE | 2017-03-07 16:20 | HHI.CCPN ---
Subjective Remarks/Hospital Course 61-year-old female with a past medical history significant for CAD status post CABG, atrial fibrillation, diabetes mellitus, polycystic kidney disease, CHF ( echo with EF of 55-60% in 2015), hypertension, hyperlipidemia and hypothyroidism presents to the emergency department complaining of dizziness and falling. Her CT of the neck show 70% occlusive disease off right carotid artery and she was planned to undergo right carotid endarterectomy. Further vascular procedures she underwent elective cardiac catheterization that shows patent vessels without significant obstructive disease. Shortly after procedure patient developed severe hypotension and tachycardia with systolic blood pressure at 60s and significant decrease in hemoglobin. She was taken emergently to CT of the abdomen/aorta runoff, the didn't show any dissection or aneurysm however shows large hematoma of abdominal wall. SUBJ 02/27: Remains in profound shock. ON Levophed 20, Jaron 100, Vasopressin 0.04. Received total of 8 units of PRBC, 4 units of FFP to pack units of platelets and 2 cryo. Hb after 5U PRBC was 8.7 at 3 am. Discussed with vascular surgery Dr. Oliva re possible surgical intervention. Patient is also on chronic steroids prednisone 5 mg twice a day (for RA trial per patient). I will give 200 mg IV hydrocortisone STAT followed by 100 mg every 8 hours. Also change Synthroid to 75 g IV daily. Pain improved with Dilaudid. Will place on PRN Dilaudid. UO 400 ml overnight. Check bladder pressure 02/28: Remains intubated critically ill FiO2 at 60%. Remains on Jaron-Synephrine at 30 mcg/m, vasopressin at 0.04 international units per minute. Receive 2 units of PRBC for hemoglobin of 7.6 overnight. Today 9.3. Creatinine has increased to 2.14. Urine output 575 mg in 24 hours. 03/01: Remains critically ill on vasopressin. Received 2 units of PRBC for hemoglobin 7.6. Urine output increased with diuretics. 1.5 L in 24 hours, creatinine stable to slightly improved. Given Lasix 80 mg IV 1 now with potassium replacement. Start weaning trials again 03/02: Extubated yesterday but required BiPAP overnight. Becomes hypoxic and short of breath when BiPAP was weaned. Hemodynamically improved remains on 0.01 vasopressin. Hb 10. Urine output 3 L with Lasix creatinine improved to 1.6. Significant positive fluid balance. Lasix increased 03/03: Was on BiPAP overnight currently on nonrebreather. Maintaining saturation about 90%. Chest x-ray showing worsening infiltrate new extensive right-sided infiltrates persistent left lower lobe consolidation. Zyvox restarted. Creatinine Endo has improved from 1.6-1.08, white count has improved from 17.3-13.7. Urine output 3.7 L in 24 hours 03/04: Requiring BiPAP at night but FiO2 requirement has been reduced to 40%. Breathing appears more comfortable hemoglobin stable at 9.1. Urine output 4.1 L in 24 hours creatinine has come down to 0.9. At this time will wean to DC amiodarone start by mouth amiodarone start by mouth metoprolol change linezolid to by mouth. Dr. Cruz planning on abdominal hematoma evacuation later this week. 03/05: Sitting up in bed on high flow nasal cannula at 50% FiO2. Breathing slightly improved. Sputum culture 03/02/17 growing Escherichia coli which is multidrug necessary. Discontinue Zosyn and start Invanz 1 g daily. DC Zyvox tomorrow. Continue IV Lasix given additional dose of Diamox 500 mg IV x1 03/06: taken to OR and evacuated > 2L blood from hematoma. remains intubated post -operatively. hgb stable. 03/07: remains intubated, sedated. no improvements. will attempt SBT today. Objective Vital Signs Date Time Temp Pulse Resp B/P (MAP) Pulse Ox O2 Delivery O2 Flow Rate FiO2 03/07/17 15:09 100 40 03/07/17 12:00 98.9 79 17 118/71 (87) 03/07/17 04:00 Mechanical Ventilator 03/05/17 20:32 25.00 Intake and Output 03/07/17 03/07/17 03/08/17 08:00 16:00 00:00 Intake Total 100 ml Output Total 2245 ml Balance -2145 ml Result Diagram: 03/07/17 0629 03/07/17 0629 Imaging Last 24 hours Impressions Chest X-Ray 02/26/17 1812 Signed Impressions: Service Date/Time: February 18:12 - CONCLUSION: Stable exam with cardiomegaly and left basilar atelectasis. Kiet Camarena Jr., MD Aorta CTA 02/26/17 0000 Signed Impressions: Service Date/Time: February 19:19 - CONCLUSION: 1. Large anterior abdominal wall hematoma. 2. No aortic dissection or aneurysm. 3. Changes involving the liver suggesting cirrhosis. 4. Cholelithiasis. 5. Bibasilar atelectasis. 6. Cardiomegaly. Kiet Camarena Jr., MD Objective Remarks GENERAL: Morbidly obese patient. intubated, sedated. SKIN: Warm and dry. Ecchymosis lower abdomen HEAD: Normocephalic. NECK: Supple, trachea midline. CARDIOVASCULAR: NSR with occasional PVCs. RESPIRATORY: intubated. PRVC. 40% fio2. equal chest rise. GASTROINTESTINAL: Abdomen distended tender to palpation in the lower abdomen. Ecchymosis lower abdomen MUSCULOSKELETAL: No cyanosis NEURO EXAM: RASS -3. sedated, intubated. withdraws x 4. A/P Assessment and Plan Neuro: TIA - Xanax 0.25 mg every 6 hours when necessary for anxiety - Dilaudid and oxycodone when necessary for pain control - Previously planned CEA postponed indefinitely - propofol as needed for goal RASS -2. CVA/Heme: Hemorrhagic shock-resolved Large anterior abdominal wall/rectus sheath hematoma post cardiac catheterization-resolved. Atrial fibrillation with RVR, no wNSR - Status post approximately 14 units PRBC, 4 units of FFP, 2 units of platelets , 2 cryo, including 2 units of PRBC - Monitor hemoglobin, coags - Anterior abdominal wall hematoma on CTA. No active leak - s/p abdominal wall hematoma evacuation 03/[address] Zhang - Jazzy to 40 q12. Resumed home aldactone 12.5 daily 03/04. continue diamox 500mg iv q8h. - At home On chronic prednisone 5 mg twice a day. Continue stress dose steroids reduced to 50 mg IV every 8 hours 03/03/17, start slow taper back down to daily prednisone dose. - Synthroid to IV 75 g daily-changed to home dose 200 g daily from 03/04/17 - NSR, On amiodarone 200 mg po daily form 03/04/17 after infusion was discontinued - Metoprolol at a lower dose 25 mg twice a day - Hold anticoagulation due to blood loss. Hold all antiplatelet therapy - 2D Echo Normal left ventricular size. LVEF 50-55%. Resp: Acute hypoxemic respiratory failure Acute COPD exacerbation Healthcare associated pneumonia/ MDR E Coli - Intubated by anesthesia for angiography, Extubated 03/01 but requiring BiPAP PRN and night. intubated for hematoma evacuation 03/05 - CXR resolving slowly improving infiltrates - DuoNeb every 4 hours and when necessary - Symbicort and Spiriva. Receiving steroids as hydrocortisone wean fio2 as tolerated for goal spo2 > 90% - start SBT today - nebs, vent bundle, hob elevated. GI: Transaminitis-improving - start TF. - Abdominal wall hematoma management as above - Elevated liver enzymes secondary to shock-now improving : Acute on chronic kidney failure - Acute kidney failure secondary to ATN, steadily improving - IV Lasix, Diamox as above, Aldactone 12.5 mg daily - Creatinine actually improving with diuresis ID Healthcare associated pneumonia with MDR E Coli - DC Zosyn, start Invanz 1 g daily 03/05/17 - DC Zyvox 03/06/17 - ID Dr Tobar Endo: - Continue Synthroid 200 g daily DVT GI prophylaxis - Teds/SCDs - start SQH 5000 q12h. - PPI Overall impression: morbidly obese. recurrent respiratory failure. very difficult to wean from mechanical ventilation and now with recurrent intubation from hematoma drainage. critically ill and off pathway. start SBTs today- may require multiple days of weaning. Gigi Roberts MD Mar 07, 2017 16:20
--- NOTE | 2017-03-07 17:10 | HHI.IDPN ---
Note Infectious Disease Note Patient is on the vent. Afebrile. Patient presented to [place] emergency department on 02/22 with generalized weakness. PAST MEDICAL HISTORY: 1. hypertension 2. Hyperlipidemia 3. polycystic kidney disease 4. Hypothyroidism 5. coronary artery disease 6. history of coronary bypass graft surgery 7. atrial fibrillation status post ablation times four 8. AICD placement 9. Tonsillectomy 10. bilateral tubal ligation 11. Arthritis ALLERGIES VANCOMYCIN LEVAQUIN ERYTHROMYCIN AZITHROMYCIN CYCLOSPORIN MRI precaution. MEDICATIONS OBJECTIVE: Vital Signs Date Time Temp Pulse Resp B/P (MAP) Pulse Ox O2 Delivery O2 Flow Rate FiO2 03/07/17 16:45 99 Nasal Cannula 2 03/07/17 15:09 100 40 03/07/17 12:00 98.9 79 17 118/71 (87) 99 03/07/17 12:00 40 03/07/17 12:00 80 03/07/17 11:50 99 40 03/07/17 11:30 40 03/07/17 08:00 98.9 81 14 113/68 (83) 100 03/07/17 08:00 81 03/07/17 08:00 40 03/07/17 07:59 100 40 03/07/17 04:13 100 40 03/07/17 04:00 100 Mechanical Ventilator 40 03/07/17 04:00 40 03/07/17 04:00 83 03/07/17 04:00 98.6 83 14 116/73 (87) 100 03/07/17 00:04 100 40 03/07/17 00:00 40 03/07/17 00:00 98.5 82 14 126/90 (102) 100 03/07/17 00:00 84 03/07/17 00:00 100 Mechanical Ventilator 50 03/06/17 20:21 100 40 03/06/17 20:00 100 Mechanical Ventilator 50 03/06/17 20:00 40 03/06/17 20:00 98.4 82 14 120/84 (96) 100 03/06/17 20:00 84 Laboratory Tests Test 03/06/17 08:10 03/07/17 06:29 White Blood Count 12.4 TH/MM3 11.0 TH/MM3 Red Blood Count 3.03 MIL/MM3 2.89 MIL/MM3 Hemoglobin 9.4 GM/DL 9.0 GM/DL Hematocrit 27.7 % 26.5 % Mean Corpuscular Volume 91.3 FL 92.0 FL Mean Corpuscular Hemoglobin 30.9 PG 31.2 PG Mean Corpuscular Hemoglobin Concent 33.8 % 33.9 % Red Cell Distribution Width 16.3 % 16.4 % Platelet Count 155 TH/MM3 125 TH/MM3 Mean Platelet Volume 6.5 FL 6.8 FL CBC Comment AUTO DIFF Differential Total Cells Counted 100 Neutrophils % (Manual) 86 % Band Neutrophils % 1 % Lymphocytes % 1 % Monocytes % 8 % Neutrophils # (Manual) 11.3 TH/MM3 Metamyelocytes 3 % Myelocytes 1 % Nucleated Red Blood Cells 2 /100 WBC Differential Comment FINAL DIFF MANUAL Platelet Estimate NORMAL Platelet Morphology Comment NORMAL Stomatocytes 1+ Laboratory Tests Test 03/06/17 08:10 03/07/17 06:29 Blood Urea Nitrogen 40 MG/DL 35 MG/DL Creatinine 0.83 MG/DL 0.88 MG/DL Random Glucose 110 MG/DL 105 MG/DL Total Protein 6.3 GM/DL Albumin 2.7 GM/DL Calcium Level 9.0 MG/DL 9.1 MG/DL Magnesium Level 2.1 MG/DL Alkaline Phosphatase 79 U/L Aspartate Amino Transf (AST/SGOT) 41 U/L Alanine Aminotransferase (ALT/SGPT) 45 U/L Total Bilirubin 1.4 MG/DL Sodium Level 144 MEQ/L 145 MEQ/L Potassium Level 3.5 MEQ/L 3.3 MEQ/L Chloride Level 101 MEQ/L 101 MEQ/L Carbon Dioxide Level 38.4 MEQ/L 39.0 MEQ/L Anion Gap 5 MEQ/L 5 MEQ/L Estimat Glomerular Filtration Rate 70 ML/MIN 66 ML/MIN Microbiology Date/Time Source Procedure Growth Status 03/06/17 11:59 Abscess Other Fungal Smear - Final NO FUNGAL ELEMENTS SEEN. Resulted 03/06/17 11:59 Abscess Other Fungal Culture Pending Resulted 03/06/17 11:59 Abscess Other Acid Fast Stain Pending Received 03/06/17 11:59 Abscess Other Mycobacterial Culture Pending Received 03/06/17 11:59 Abscess Other Gram Stain - Final Resulted 03/06/17 11:59 Abscess Other Wound Culture - Preliminary NO GROWTH IN 24 HOURS. Resulted IMAGING: Chest X-Ray 03/06/17 0600 Signed Impressions: Service Date/Time: Monday, March 06, 2017 04:18 - CONCLUSION: 1. Cardiomegaly. 2. The floor lobe atelectasis, consolidation and/or effusion. 3. Patchy consolidation or atelectasis in the right perihilar region. Savage Victoria MD Chest X-Ray 03/05/17 0600 Signed Impressions: Service Date/Time: February 04:06 - CONCLUSION: 1. Persistent left lower lobe consolidation. 2. Improving infiltrates in the right. Kiet Rob MD Chest X-Ray 03/04/17 0000 Signed Impressions: Service Date/Time: Saturday, March 04, 2017 07:18 - CONCLUSION: 1. Cardiomegaly with positive fluid balance. 2. Patchy diffuse bilateral airspace disease slightly progressed in the right lung. Sonu Esparza MD Chest X-Ray 03/03/17 0600 Signed Impressions: Service Date/Time: Friday, March 03, 2017 04:52 - CONCLUSION: Increasing partially consolidative infiltrates in the right upper and right lower lung. Persistent lobar consolidation left lower lobe. Kiet Rob MD Chest X-Ray 03/02/17 0600 Signed Impressions: Service Date/Time: Thursday, March 02, 2017 03:47 - CONCLUSION: There is no subsegmental consolidative infiltrate in the right upper lobe. Persistent left lower lobe consolidation. Kiet Rob MD Angiography 02/27/17 1219 Signed Impressions: Service Date/Time: Monday, February 27, 2017 11:03 - CONCLUSION: No evidence of arterial injury and no findings to indicate site of bleeding to account for anterior abdominal wall hematoma. Savage Aranda MD Aorta CTA 02/26/17 0000 Signed Impressions: Service Date/Time: February 19:19 - CONCLUSION: 1. Large anterior abdominal wall hematoma. 2. No aortic dissection or aneurysm. 3. Changes involving the liver suggesting cirrhosis. 4. Cholelithiasis. 5. Bibasilar atelectasis. 6. Cardiomegaly. Kiet Camarena Jr., MD Neck CTA 02/22/17 0000 Signed Impressions: Service Date/Time: Wednesday, February 22, 2017 06:25 - CONCLUSION: 1. Prominent atherosclerotic disease at carotid bulbs resulting in approximately 70%% stenosis of the proximal right ICA at its origin and approximately 40-50%% stenosis of the proximal left ICA. 2. Moderate grade stenosis of the proximal left common carotid artery at its origin. Gurdeep Laird MD Head CTA 02/22/17 0000 Signed Impressions: Service Date/Time: Wednesday, February 22, 2017 06:25 - CONCLUSION: No evidence of proximal high-grade stenosis or occlusion. Gurdeep Laird MD Head CT 02/22/17 0000 Signed Impressions: Service Date/Time: Wednesday, February 22, 2017 06:25 - CONCLUSION: Normal examination for a patient of this age. No significant change has occurred. Billy Weems MD PHYSICAL EXAMINATION: GENERAL: On the vent. HEENT: No icterus. Moist mucosa. NECK: No swelling or adenopathy. LUNGS: Bilateral rhonchi. Breath sounds decreased. HEART: Irregular rate and rhythm. No murmurs audible. ABDOMEN: Distended. Soft, non tender. EXTREMITIES: No clubbing or cyanosis or edema. SKIN: No diffuse rash. NEUROLOGIC: Non focal. PSYCH: Calm and cooperative. IMPRESSION 1. Hemorrhagic shock. Patient developed hypotension and tachycardia and abdominal wall hematoma. Post evacuation of large clotted blood from abdomen. 2. Leukocytosis. 3. Acute kidney disease. The patient received contrast for radiographic study and also she was hypotensive and may have had also hypotensive insult to the kidney. improving. 4. Lung infiltrate. VAP - E.coli. 5. Multiple antibiotic allergies. RECOMMENDATIONS 1. Continue Ertapenem. 2. Monitor abdominal culture. 3. Monitor clinical status. 4. Monitor WBC. Antonio Tobar MD Mar 07, 2017 17:10
[2017-03-07] MEDS: ATORVASTATIN 40 MG TAB PO SCH (20:37)
[2017-03-07] MEDS: HEPARIN SODIUM - SQ 10,000 UNITS/ML VIAL SQ SCH (20:39)
[2017-03-07] MEDS: BUDESONIDE-FORMOTEROL 160/4.5 MCG INHALER INH SCH (20:42)
[2017-03-07] MEDS: POTASSIUM CHLORIDE 20 MEQ CONTROLLED RELEASE TAB PO SCH (21:00)
[2017-03-08] VITALS (8 sets, daily range): BP systolic 99–164; BP diastolic 66–92; PULSE 75–79; RESP 14–23; TEMP 96.4–98.7; O2SAT 92–99
[2017-03-08] MEDS: FUROSEMIDE 40 MG/4 ML VIAL IV PUSH SCH ×2 (03:22→15:34)
[2017-03-08] MEDS: LEVOTHYROXINE SODIUM 200 MCG TAB PO SCH (05:01)
[2017-03-08 05:08] LABS: HEMATOCRIT 26.3 % (35.0-46.0); HEMOGLOBIN 8.9 GM/DL (11.6-15.3); MEAN CORPUSCULAR HEMOGLOBIN 31.6 PG (27.0-34.0); PLATELET COUNT 141 TH/MM3 (150-450); RED BLOOD COUNT 2.83 MIL/MM3 (4.00-5.30); RED CELL DISTRIBUTION WIDTH 16.7 % (11.6-17.2); WHITE BLOOD COUNT 10.6 TH/MM3 (4.0-11.0)
[2017-03-08 05:26] LABS: BICARBONATE 37.6 MEQ/L (21.0-32.0); CALCIUM 8.5 MG/DL (8.5-10.1); CREATININE 0.71 MG/DL (0.50-1.00)
[2017-03-08] MEDS: POTASSIUM CHLOR 40 MEQ PREMIX 100 ML IV PRN (06:04)
--- NOTE | 2017-03-08 08:58 | PD.CARD.PN ---
Subjective Subjective Remarks alert in nad on nc Objective Medications Current Medications Medications (Trade) Dose Ordered Sig/Alexa Route Start Time Stop Time Status Last Admin (Aspirin) 325 mg DAILY PO 02/23/17 09:00 Future Hold 02/25/17 08:24 (Cordarone) 200 mg DAILY PO 02/23/17 09:00 Future hold 03/07/17 08:59 (Lipitor) 40 mg HS PO 02/22/17 21:00 03/07/17 20:37 (Bumetanide) 1 mg DAILY PO 02/23/17 09:00 Future Hold (Imdur) 30 mg DAILY@0700 PO 02/23/17 07:00 03/07/17 09:00 (Synthroid) 200 mcg DAILY@0600 PO 02/23/17 06:00 Future hold 03/08/17 05:01 (Entresto 97-103 Mg) 1 tab BID PO 02/22/17 21:00 Future Hold 02/22/17 21:16 (Aldactone) 12.5 mg DAILY PO 02/23/17 09:00 Future hold 03/07/17 08:59 (Effexor Xr) 75 mg DAILY PO 02/23/17 09:00 Future Hold 03/03/17 08:53 (Pill Splitter) 1 ea UNSCH PRN OTHER 02/22/17 11:00 ([place] 5-325 Mg) 1 tab Q6H PRN PO 02/22/17 13:00 03/07/17 21:06 (Deltasone) 5 mg BID PO 02/22/17 21:00 Future Hold 02/26/17 09:19 (NS Flush) 2 ml BID IV FLUSH 02/26/17 21:00 03/07/17 20:39 (NS Flush) 2 ml UNSCH PRN IV FLUSH 02/26/17 16:15 (Zofran Inj) 4 mg Q4H PRN IV PUSH 02/26/17 23:00 (Protonix Inj) 40 mg Q12H IV PUSH 02/27/17 08:00 03/07/17 20:38 (Dilaudid Pf Inj) 1 mg Q3H PRN IV PUSH 02/27/17 07:15 03/06/17 06:17 (KCl) 20 meq Q12HR PO 03/01/17 21:00 03/07/17 21:00 (Duoneb Neb) 1 ampule Q2HR NEB PRN NEB 03/02/17 08:15 03/07/17 04:13 (Symbicort 160-4.5 Mcg Inh) 2 puff Q12HR INH 03/02/17 09:00 03/07/17 20:42 (Spiriva Inh) 18 mcg DAILY INH 03/02/17 09:00 03/05/17 09:00 Potassium Chloride 100 ml @ 50 mls/hr Q2H PRN IV 03/03/17 09:45 03/03/17 11:40 Potassium Chloride 100 ml @ 50 mls/hr Q2H PRN IV 03/03/17 09:45 (K-Lyte Cl Eff) 50 meq UNSCH PRN PO 03/03/17 09:45 Potassium Chloride 100 ml @ 25 mls/hr UNSCH PRN IV 03/03/17 09:45 03/08/17 06:04 Potassium Chloride 100 ml @ 50 mls/hr Q2H PRN IV 03/03/17 09:45 Magnesium Sulfate 4 gm/Sodium Chloride 100 ml @ 50 mls/hr UNSCH PRN IV 03/03/17 09:45 (Mag-Ox) 800 mg UNSCH PRN PO 03/03/17 09:45 Magnesium Sulfate 2 gm/Sodium Chloride 100 ml @ 50 mls/hr UNSCH PRN IV 03/03/17 09:45 (K-Phos) 2,000 mg Q4H PRN PO 03/03/17 09:45 Sodium Phosphate 30 mmol/Sodium Chloride 250 ml @ 42 mls/hr UNSCH PRN IV 03/03/17 09:45 (K-Phos) 2,000 mg UNSCH PRN PO/TUBE 03/03/17 09:45 Potassium Phosphate 30 mmol/ Sodium Chloride 260 ml @ 42 mls/hr UNSCH PRN IV 03/03/17 09:45 (Lasix Inj) 40 mg Q12H IV PUSH 03/04/17 14:00 03/08/17 03:22 (Lopressor) 25 mg BID PO 03/04/17 09:00 03/07/17 20:38 (Xanax) 0.25 mg Q6H PRN PO 03/05/17 06:45 03/05/17 07:26 Ertapenem 1000 mg/ Sodium Chloride 100 ml @ 200 mls/hr Q24H IV 03/05/17 09:00 03/07/17 12:41 (SoluCORTEF INJ) 50 mg Taper Q12HR IV 03/06/17 21:00 03/12/17 20:59 03/07/17 20:38 (Deltasone) 5 mg DAILY PO 03/13/17 09:00 (Heparin Inj) 5,000 units Q12HR SQ 03/07/17 21:00 03/07/17 20:39 Vital Signs / I&O Vital Signs Date Time Temp Pulse Resp B/P (MAP) Pulse Ox O2 Delivery O2 Flow Rate FiO2 03/08/17 04:00 96.4 76 15 111/68 (82) 99 03/08/17 04:00 76 03/08/17 00:00 75 03/08/17 00:00 98.1 75 15 99/66 (77) 94 03/07/17 22:17 95 Nasal Cannula 3.00 03/07/17 20:00 78 03/07/17 20:00 97.8 78 16 116/63 (80) 95 03/07/17 16:45 99 Nasal Cannula 2 03/07/17 16:00 40 03/07/17 16:00 98.6 79 23 128/75 (92) 100 03/07/17 16:00 79 03/07/17 15:09 100 40 03/07/17 12:00 98.9 79 17 118/71 (87) 99 03/07/17 12:00 40 03/07/17 12:00 80 03/07/17 11:50 99 40 03/07/17 11:30 40 I/O 03/07/17 03/07/17 03/07/17 03/08/17 03/08/17 03/08/17 07:00 15:00 23:00 07:00 15:00 23:00 Intake Total 200 ml 350 ml 340 ml Output Total 2245 ml 975 ml 1575 ml Balance -2045 ml -625 ml -1235 ml Intake Oral 240 ml IV Total 200 ml 100 ml 100 ml Tube Feeding 150 ml Tube Irrigant 100 ml Output Urine Total 1750 ml 900 ml 1450 ml Drainage Total 495 ml 75 ml 125 ml # Bowel Movements 0 0 Physical Exam GENERAL: SKIN: Warm and dry. HEAD: Normocephalic. EYES: No scleral icterus. No injection or drainage. NECK: Supple, trachea midline. No JVD or lymphadenopathy. CARDIOVASCULAR: Regular rate and rhythm without murmurs, gallops, or rubs. RESPIRATORY: Breath sounds equal bilaterally. No accessory muscle use. GASTROINTESTINAL: Abdomen soft, non-tender, nondistended. MUSCULOSKELETAL: No cyanosis, or edema. BACK: Nontender without obvious deformity. No CVA tenderness. Laboratory Laboratory Tests Test 03/08/17 03:40 White Blood Count 10.6 TH/MM3 Red Blood Count 2.83 MIL/MM3 Hemoglobin 8.9 GM/DL Hematocrit 26.3 % Mean Corpuscular Volume 93.0 FL Mean Corpuscular Hemoglobin 31.6 PG Mean Corpuscular Hemoglobin Concent 34.0 % Red Cell Distribution Width 16.7 % Platelet Count 141 TH/MM3 Mean Platelet Volume 7.0 FL Blood Urea Nitrogen 33 MG/DL Creatinine 0.71 MG/DL Random Glucose 87 MG/DL Calcium Level 8.5 MG/DL Sodium Level 146 MEQ/L Potassium Level 3.4 MEQ/L Chloride Level 104 MEQ/L Carbon Dioxide Level 37.6 MEQ/L Anion Gap 4 MEQ/L Estimat Glomerular Filtration Rate 84 ML/MIN Assessment and Plan Problem List: (1) PVD (peripheral vascular disease) ICD Codes: I73.9 - Peripheral vascular disease, unspecified (2) Anemia ICD Codes: D64.9 - Anemia, unspecified (3) Abdominal hematoma ICD Codes: S30.1XXA - Contusion of abdominal wall, initial encounter (4) Obesity ICD Codes: E66.9 - Obesity Status: Acute (5) SOB (shortness of breath) ICD Codes: R06.02 - SOB (shortness of breath) Status: Acute (6) Hx of coronary artery disease ICD Codes: Z86.79 - Personal history of other diseases of the circulatory system (7) Atrial fibrillation ICD Codes: I48.91 - Atrial fibrillation Status: Chronic (8) DM (diabetes mellitus) ICD Codes: E11.9 - DM (diabetes mellitus) Status: Chronic (9) Carotid stenosis ICD Codes: I65.29 - Occlusion and stenosis of unspecified carotid artery (10) History of four vessel coronary artery bypass graft ICD Codes: Z95.1 - Presence of aortocoronary bypass graft Assessment and Plan 1.) CAD - i could not image lyles, ow good flow to iw, lw, anterior wall with good wall motion but cant rule out lyles or lad disease therefore patient is moderate to high risk for noncardiac surgery, d/w Dr Cruz 2.) abdominal hematoma - rp bleed and groin hematoma ruled out, arterial injury and active bleeding from cath ruled out by angio 02/27/17, still requiring transfusion despite angiogram demonstrating no arterial injury or active bleeding suggesting bleeding is a local abdominal source, possibly due to lovenox injections, would explain why bleeding not tamponading as adipose tissue would lower resistance than rp or groin, still requiring transfusion and pressors but mental status good and u/o > 300/shift; d/w Dr Schafer 02/28/18 3.) PAF - in af rate controlled this am hr @ 85, ac held due to abdominal hematoma 4.) Carotid stenosis - surgery postponed due to abdominal hematoma 5.) Anemia - hgb stablelizing, creatinine improving, u/o increasing on lasix, continue to monitor hgb; hematoma evacuation per Dr Cruz 6.) pod #2 hematoma evacuation - hemodynamically stable on minimal O2, extubated , hgb stable Problem Qualifiers (1) Atrial fibrillation: Qualified Codes: I48.0 - Paroxysmal atrial fibrillation Macho Juarez MD Mar 08, 2017 08:58
[2017-03-08] MEDS: POTASSIUM CHLORIDE 20 MEQ CONTROLLED RELEASE TAB PO SCH ×2 (09:42→21:34)
[2017-03-08] MEDS: AMIODARONE 200 MG TAB PO SCH (09:42)
[2017-03-08] MEDS: HYDROCORTISONE SOD SUCCINATE 100 MG VIAL IV SCH ×2 (09:42→21:34)
[2017-03-08] MEDS: ERTAPENEM INJ 1,000 MG in SODIUM CHLORIDE 0.9% INJ 100 ML IV SCH (09:42)
[2017-03-08] MEDS: METOPROLOL TARTRATE 25 MG TAB PO SCH ×2 (09:42→21:34)
[2017-03-08] MEDS: SPIRONOLACTONE 25 MG TAB PO SCH (09:42)
[2017-03-08] MEDS: PANTOPRAZOLE SODIUM 40 MG VIAL IV PUSH SCH ×2 (09:42→21:34)
--- NOTE | 2017-03-08 10:31 | HHI.CCPN ---
Subjective Remarks/Hospital Course 61-year-old female with a past medical history significant for CAD status post CABG, atrial fibrillation, diabetes mellitus, polycystic kidney disease, CHF ( echo with EF of 55-60% in 2015), hypertension, hyperlipidemia and hypothyroidism presents to the emergency department complaining of dizziness and falling. Her CT of the neck show 70% occlusive disease off right carotid artery and she was planned to undergo right carotid endarterectomy. Further vascular procedures she underwent elective cardiac catheterization that shows patent vessels without significant obstructive disease. Shortly after procedure patient developed severe hypotension and tachycardia with systolic blood pressure at 60s and significant decrease in hemoglobin. She was taken emergently to CT of the abdomen/aorta runoff, the didn't show any dissection or aneurysm however shows large hematoma of abdominal wall. SUBJ 02/27: Remains in profound shock. ON Levophed 20, Jaron 100, Vasopressin 0.04. Received total of 8 units of PRBC, 4 units of FFP to pack units of platelets and 2 cryo. Hb after 5U PRBC was 8.7 at 3 am. Discussed with vascular surgery Dr. Oliva re possible surgical intervention. Patient is also on chronic steroids prednisone 5 mg twice a day (for RA trial per patient). I will give 200 mg IV hydrocortisone STAT followed by 100 mg every 8 hours. Also change Synthroid to 75 g IV daily. Pain improved with Dilaudid. Will place on PRN Dilaudid. UO 400 ml overnight. Check bladder pressure 02/28: Remains intubated critically ill FiO2 at 60%. Remains on Jaron-Synephrine at 30 mcg/m, vasopressin at 0.04 international units per minute. Receive 2 units of PRBC for hemoglobin of 7.6 overnight. Today 9.3. Creatinine has increased to 2.14. Urine output 575 mg in 24 hours. 03/01: Remains critically ill on vasopressin. Received 2 units of PRBC for hemoglobin 7.6. Urine output increased with diuretics. 1.5 L in 24 hours, creatinine stable to slightly improved. Given Lasix 80 mg IV 1 now with potassium replacement. Start weaning trials again 03/02: Extubated yesterday but required BiPAP overnight. Becomes hypoxic and short of breath when BiPAP was weaned. Hemodynamically improved remains on 0.01 vasopressin. Hb 10. Urine output 3 L with Lasix creatinine improved to 1.6. Significant positive fluid balance. Lasix increased 03/03: Was on BiPAP overnight currently on nonrebreather. Maintaining saturation about 90%. Chest x-ray showing worsening infiltrate new extensive right-sided infiltrates persistent left lower lobe consolidation. Zyvox restarted. Creatinine Endo has improved from 1.6-1.08, white count has improved from 17.3-13.7. Urine output 3.7 L in 24 hours 03/04: Requiring BiPAP at night but FiO2 requirement has been reduced to 40%. Breathing appears more comfortable hemoglobin stable at 9.1. Urine output 4.1 L in 24 hours creatinine has come down to 0.9. At this time will wean to DC amiodarone start by mouth amiodarone start by mouth metoprolol change linezolid to by mouth. Dr. Cruz planning on abdominal hematoma evacuation later this week. 03/05: Sitting up in bed on high flow nasal cannula at 50% FiO2. Breathing slightly improved. Sputum culture 03/02/17 growing Escherichia coli which is multidrug necessary. Discontinue Zosyn and start Invanz 1 g daily. DC Zyvox tomorrow. Continue IV Lasix given additional dose of Diamox 500 mg IV x1 03/06: taken to OR and evacuated > 2L blood from hematoma. remains intubated post -operatively. hgb stable. 03/07: remains intubated, sedated. no improvements. will attempt SBT today. 03/08: extubated and breathing comfortably. Conversant and protects airway well. Objective Vital Signs Date Time Temp Pulse Resp B/P (MAP) Pulse Ox O2 Delivery O2 Flow Rate FiO2 03/08/17 04:00 96.4 76 15 111/68 (82) 99 03/07/17 22:17 Nasal Cannula 3.00 03/07/17 16:00 40 Intake and Output 03/08/17 03/08/17 03/09/17 08:00 16:00 00:00 Intake Total 340 ml Output Total 1575 ml Balance -1235 ml Result Diagram: 03/08/17 0340 03/08/17 0340 Imaging Last 24 hours Impressions Chest X-Ray 02/26/17 1812 Signed Impressions: Service Date/Time: February 18:12 - CONCLUSION: Stable exam with cardiomegaly and left basilar atelectasis. Kiet Camarena Jr., MD Aorta CTA 02/26/17 0000 Signed Impressions: Service Date/Time: February 19:19 - CONCLUSION: 1. Large anterior abdominal wall hematoma. 2. No aortic dissection or aneurysm. 3. Changes involving the liver suggesting cirrhosis. 4. Cholelithiasis. 5. Bibasilar atelectasis. 6. Cardiomegaly. Kiet Camarena Jr., MD Objective Remarks GENERAL: Morbidly obese patient. Alert, calm. SKIN: Warm and dry. Ecchymosis lower abdomen HEAD: Normocephalic. NECK: Supple, trachea midline. CARDIOVASCULAR: NSR with occasional PVCs. RESPIRATORY: Clear, decreased bases. GASTROINTESTINAL: Abdomen large, soft, BS active. Ecchymosis lower abdomen MUSCULOSKELETAL: No cyanosis, limbs well perfused. NEURO EXAM: Conversant, moves 4 limbs. O X 3. A/P Assessment and Plan Neuro: TIA - Xanax 0.25 mg every 6 hours when necessary for anxiety - Dilaudid and oxycodone when necessary for pain control - Previously planned CEA postponed indefinitely - propofol as needed for goal RASS -2. CVA/Heme: Hemorrhagic shock-resolved Large anterior abdominal wall/rectus sheath hematoma post cardiac catheterization-resolved. Atrial fibrillation with RVR, no wNSR - Status post approximately 14 units PRBC, 4 units of FFP, 2 units of platelets , 2 cryo, including 2 units of PRBC - Monitor hemoglobin, coags - Anterior abdominal wall hematoma on CTA. No active leak - s/p abdominal wall hematoma evacuation 03/[address] Zhang - Lasix to 40 q12. Resumed home aldactone 12.5 daily 03/04. continue diamox 500mg iv q8h. - At home On chronic prednisone 5 mg twice a day. Continue stress dose steroids reduced to 50 mg IV every 8 hours 03/03/17, start slow taper back down to daily prednisone dose. - Synthroid to IV 75 g daily-changed to home dose 200 g daily from 03/04/17 - NSR, On amiodarone 200 mg po daily form 03/04/17 after infusion was discontinued - Metoprolol at a lower dose 25 mg twice a day - Hold anticoagulation due to blood loss. Hold all antiplatelet therapy - 2D Echo Normal left ventricular size. LVEF 50-55%. Resp: Acute hypoxemic respiratory failure Acute COPD exacerbation Healthcare associated pneumonia/ MDR E Coli - Intubated by anesthesia for angiography, Extubated 03/01 but requiring BiPAP PRN and night. intubated for hematoma evacuation 03/05 - CXR resolving slowly improving infiltrates - DuoNeb every 4 hours and when necessary - Symbicort and Spiriva. Receiving steroids as hydrocortisone wean fio2 as tolerated for goal spo2 > 90% - start SBT today - nebs, vent bundle, hob elevated. - Extubated 03/07 GI: Transaminitis-improving - start TF. - Abdominal wall hematoma management as above - Elevated liver enzymes secondary to shock-now improving : Acute on chronic kidney failure - Acute kidney failure secondary to ATN, steadily improving - IV Lasix, Diamox as above, Aldactone 12.5 mg daily - Creatinine actually improving with diuresis ID Healthcare associated pneumonia with MDR E Coli - DC Zosyn, start Invanz 1 g daily 03/05/17 - DC Zyvox 03/06/17 - ID Dr Tobar Endo: - Continue Synthroid 200 g daily DVT GI prophylaxis - Teds/SCDs - start SQH 5000 q12h. - PPI Overall impression: Extubated. Safe for transfer. Sae Trinidad MD Mar 08, 2017 10:31
--- NOTE | 2017-03-08 10:31 | PD.CAR.PN ---
CVT Progress Note Subjective/Hospital Course: referral received full consult TF Nancy Patient stable now Neurologically remains intact The dizziness and vertigo she had is now gone in this more and more looks like a TIA Neurology consult greatly appreciated At this point agree with neurologist and I will address carotid artery while patient still in the hospital Patient is known to cardiac problems and I reviewed her echocardiogram Cardiology consulted, spoken to Dr Juarez. All things equal for right carotid endarterectomy after cardiac cath, likely Thursday or Thursday02/26/17 Patient doing better now Vertigo is gone She underwent cardiac catheterization today which reveals patent coronary vessels and fairly normal intracardiac pressures Have discussed this with Dr. Juarez At this point patient is a moderate high risk for carotid endarterectomy In face of 70% stenosis in neurologic symptoms I'm hard pressed not to offer patient to surgery as an option Patient for right carotid endarterectomy tomorrow 03/04/17 Patient now on face mask and was on BiPAP mask yesterday Abdomen is soft active bowel sounds and lower abdomen is still distended and firm I discussed care with Dr. Wan and the is clearly would be advisable to do this surgery without intubating the patient but I do not believe that this is possible due to the huge size of this Considering patient's precarious respiratory status we decided to wait another day and take the patient to the operating room Thursday for washout 03/05/17 Patient doing fairly well She is on partial rebreather mask Abdomen is soft active bowel sounds Discussed the case with Dr. Wan and we jointly made the decision to take patient to the operating room tomorrow for washout and evacuation of this large preperitoneal hematoma before it gets infected 03/06/17 Patient underwent evacuation of an enormous the properitoneal hematoma of about 1 gallon of old blood For details see operative note Patient will be draining for a while from this incision and JPs remain in place Expect significant amount of drainage from the wound considering the proximity to the skin Unfortunately patient had to be intubated for the procedure and clearly will have now be weaned gradually of the ventilator again 03/07/17 As above noted drained about 1 gallon of old; it coagulated blood from the preperitoneal space Drains placed and these will be draining for a while Drainage from the wound is expected considering the thin layer between the properitoneal space and the skin. Continue current care and change dressings as needed Nothing to add to care right now from surgical point 1/28/18 Patient doing well at this time she is awake alert and oriented Bilateral good breath sounds much improved Incision and lower abdomen is now clean and dry with no drainage through the incision itself FAZAL drains draining as expected Plan From my point patient can be transferred to the floor, be out of bed and on heart healthy diet We will revisit the issue of carotid endarterectomy in about 6-8 weeks and patient will follow-up with me in the office Objective: Vital Signs Date Time Temp Pulse Resp B/P (MAP) Pulse Ox O2 Delivery O2 Flow Rate FiO2 03/08/17 04:00 96.4 76 15 111/68 (82) 99 03/08/17 04:00 76 03/08/17 00:00 75 03/08/17 00:00 98.1 75 15 99/66 (77) 94 03/07/17 22:17 95 Nasal Cannula 3.00 03/07/17 20:00 78 03/07/17 20:00 97.8 78 16 116/63 (80) 95 03/07/17 16:45 99 Nasal Cannula 2 03/07/17 16:00 40 03/07/17 16:00 98.6 79 23 128/75 (92) 100 03/07/17 16:00 79 03/07/17 15:09 100 40 03/07/17 12:00 98.9 79 17 118/71 (87) 99 03/07/17 12:00 40 03/07/17 12:00 80 03/07/17 11:50 99 40 03/07/17 11:30 40 Labs: Laboratory Tests Test 03/08/17 03:40 White Blood Count 10.6 TH/MM3 (4.0-11.0) Red Blood Count 2.83 MIL/MM3 (4.00-5.30) Hemoglobin 8.9 GM/DL (11.6-15.3) Hematocrit 26.3 % (35.0-46.0) Mean Corpuscular Volume 93.0 FL (80.0-100.0) Mean Corpuscular Hemoglobin 31.6 PG (27.0-34.0) Mean Corpuscular Hemoglobin Concent 34.0 % (32.0-36.0) Red Cell Distribution Width 16.7 % (11.6-17.2) Platelet Count 141 TH/MM3 (150-450) Mean Platelet Volume 7.0 FL (7.0-11.0) Blood Urea Nitrogen 33 MG/DL (7-18) Creatinine 0.71 MG/DL (0.50-1.00) Random Glucose 87 MG/DL (74-106) Calcium Level 8.5 MG/DL (8.5-10.1) Sodium Level 146 MEQ/L (136-145) Potassium Level 3.4 MEQ/L (3.5-5.1) Chloride Level 104 MEQ/L (98-107) Carbon Dioxide Level 37.6 MEQ/L (21.0-32.0) Anion Gap 4 MEQ/L (5-15) Estimat Glomerular Filtration Rate 84 ML/MIN (>89) Result Diagram: 03/08/17 0340 03/08/17 034 (1) PVD (peripheral vascular disease) (2) Anemia (3) Abdominal hematoma (4) Obesity (5) SOB (shortness of breath) (6) Hx of coronary artery disease (7) Atrial fibrillation (8) DM (diabetes mellitus) (9) Carotid stenosis (10) History of four vessel coronary artery bypass graft Problem Qualifiers (1) Atrial fibrillation: Qualified Codes: I48.0 - Paroxysmal atrial fibrillation Chin Alcazar MD Mar 08, 2017 10:31
--- NOTE | 2017-03-08 14:49 | HHI.IDPN ---
Note Infectious Disease Note Patient has been extubated. Feels better. Notes pains in the back and joints. Had been on study arthritis drug. Not taken since admission. Afebrile. Post evacuation of abdominal wall hematoma. Patient presented to [place] emergency department on 02/22 with generalized weakness. PAST MEDICAL HISTORY: 1. hypertension 2. Hyperlipidemia 3. polycystic kidney disease 4. Hypothyroidism 5. coronary artery disease 6. history of coronary bypass graft surgery 7. atrial fibrillation status post ablation times four 8. AICD placement 9. Tonsillectomy 10. bilateral tubal ligation 11. Arthritis ALLERGIES VANCOMYCIN LEVAQUIN ERYTHROMYCIN AZITHROMYCIN CYCLOSPORIN MRI precaution. MEDICATIONS OBJECTIVE: Vital Signs Date Time Temp Pulse Resp B/P (MAP) Pulse Ox O2 Delivery O2 Flow Rate FiO2 03/08/17 12:00 98.4 76 15 164/77 (106) 99 03/08/17 12:00 75 03/08/17 08:00 98.5 75 14 111/67 (82) 99 03/08/17 08:00 75 03/08/17 04:00 96.4 76 15 111/68 (82) 99 03/08/17 04:00 76 03/08/17 00:00 75 03/08/17 00:00 98.1 75 15 99/66 (77) 94 03/07/17 22:17 95 Nasal Cannula 3.00 03/07/17 20:00 78 03/07/17 20:00 97.8 78 16 116/63 (80) 95 03/07/17 16:45 99 Nasal Cannula 2 03/07/17 16:00 40 03/07/17 16:00 98.6 79 23 128/75 (92) 100 03/07/17 16:00 79 03/07/17 15:09 100 40 Laboratory Tests Test 03/07/17 06:29 03/08/17 03:40 White Blood Count 11.0 TH/MM3 10.6 TH/MM3 Red Blood Count 2.89 MIL/MM3 2.83 MIL/MM3 Hemoglobin 9.0 GM/DL 8.9 GM/DL Hematocrit 26.5 % 26.3 % Mean Corpuscular Volume 92.0 FL 93.0 FL Mean Corpuscular Hemoglobin 31.2 PG 31.6 PG Mean Corpuscular Hemoglobin Concent 33.9 % 34.0 % Red Cell Distribution Width 16.4 % 16.7 % Platelet Count 125 TH/MM3 141 TH/MM3 Mean Platelet Volume 6.8 FL 7.0 FL Laboratory Tests Test 03/07/17 06:29 03/08/17 03:40 Blood Urea Nitrogen 35 MG/DL 33 MG/DL Creatinine 0.88 MG/DL 0.71 MG/DL Random Glucose 105 MG/DL 87 MG/DL Calcium Level 9.1 MG/DL 8.5 MG/DL Sodium Level 145 MEQ/L 146 MEQ/L Potassium Level 3.3 MEQ/L 3.4 MEQ/L Chloride Level 101 MEQ/L 104 MEQ/L Carbon Dioxide Level 39.0 MEQ/L 37.6 MEQ/L Anion Gap 5 MEQ/L 4 MEQ/L Estimat Glomerular Filtration Rate 66 ML/MIN 84 ML/MIN Microbiology Date/Time Source Procedure Growth Status 03/06/17 11:59 Abscess Other Fungal Smear - Final NO FUNGAL ELEMENTS SEEN. Resulted 03/06/17 11:59 Abscess Other Fungal Culture Pending Resulted 03/06/17 11:59 Abscess Other Acid Fast Stain Pending Received 03/06/17 11:59 Abscess Other Mycobacterial Culture Pending Received 03/06/17 11:59 Abscess Other Gram Stain - Final Resulted 03/06/17 11:59 Abscess Other Wound Culture - Preliminary NO GROWTH IN 48 HOURS. Resulted IMAGING: Chest X-Ray 03/06/17 06 Signed Impressions: Service Date/Time: Monday, March 06, 2017 04:18 - CONCLUSION: 1. Cardiomegaly. 2. The floor lobe atelectasis, consolidation and/or effusion. 3. Patchy consolidation or atelectasis in the right perihilar region. Savage Victoria MD Chest X-Ray 03/05/17 0600 Signed Impressions: Service Date/Time: February 04:06 - CONCLUSION: 1. Persistent left lower lobe consolidation. 2. Improving infiltrates in the right. Kiet Rob MD Chest X-Ray 03/04/17 0000 Signed Impressions: Service Date/Time: Saturday, March 04, 2017 07:18 - CONCLUSION: 1. Cardiomegaly with positive fluid balance. 2. Patchy diffuse bilateral airspace disease slightly progressed in the right lung. Sonu Esparza MD Chest X-Ray 03/03/17 0600 Signed Impressions: Service Date/Time: Friday, March 03, 2017 04:52 - CONCLUSION: Increasing partially consolidative infiltrates in the right upper and right lower lung. Persistent lobar consolidation left lower lobe. Kiet Rob MD Chest X-Ray 03/02/17 0600 Signed Impressions: Service Date/Time: Thursday, March 02, 2017 03:47 - CONCLUSION: There is no subsegmental consolidative infiltrate in the right upper lobe. Persistent left lower lobe consolidation. Kiet Rob MD Angiography 02/27/17 1219 Signed Impressions: Service Date/Time: Monday, February 27, 2017 11:03 - CONCLUSION: No evidence of arterial injury and no findings to indicate site of bleeding to account for anterior abdominal wall hematoma. Savage Aranda MD Aorta CTA 02/26/17 0000 Signed Impressions: Service Date/Time: February 19:19 - CONCLUSION: 1. Large anterior abdominal wall hematoma. 2. No aortic dissection or aneurysm. 3. Changes involving the liver suggesting cirrhosis. 4. Cholelithiasis. 5. Bibasilar atelectasis. 6. Cardiomegaly. Kiet Camarena Jr., MD Neck CTA 02/22/17 0000 Signed Impressions: Service Date/Time: Wednesday, February 22, 2017 06:25 - CONCLUSION: 1. Prominent atherosclerotic disease at carotid bulbs resulting in approximately 70%% stenosis of the proximal right ICA at its origin and approximately 40-50%% stenosis of the proximal left ICA. 2. Moderate grade stenosis of the proximal left common carotid artery at its origin. Gurdeep Laird MD Head CTA 02/22/17 0000 Signed Impressions: Service Date/Time: Wednesday, February 22, 2017 06:25 - CONCLUSION: No evidence of proximal high-grade stenosis or occlusion. Gurdeep Laird MD Head CT 02/22/17 0000 Signed Impressions: Service Date/Time: Wednesday, February 22, 2017 06:25 - CONCLUSION: Normal examination for a patient of this age. No significant change has occurred. Billy Weems MD PHYSICAL EXAMINATION: GENERAL: Awake and alert. HEENT: No icterus. Moist mucosa. NECK: No swelling or adenopathy. LUNGS: Breath sounds decreased. HEART: Irregular rate and rhythm. No murmurs audible. ABDOMEN: Distended. Soft, non tender. EXTREMITIES: No clubbing or cyanosis or edema. SKIN: No diffuse rash. NEUROLOGIC: Non focal. PSYCH: Calm and cooperative. IMPRESSION 1. Hemorrhagic shock. Patient developed hypotension and tachycardia and abdominal wall hematoma. Post evacuation of large clotted blood from abdomen. 2. Leukocytosis. Improved. 3. Acute kidney disease. The patient received contrast for radiographic study and also she was hypotensive and may have had also hypotensive insult to the kidney. improving. 4. Lung infiltrate. VAP - E.coli. 5. Multiple antibiotic allergies. Improved. RECOMMENDATIONS 1. Continue Ertapenem. Plan on 10 days treatment. 2. Monitor clinical status. Antonio Tobar MD Mar 08, 2017 14:49
[2017-03-08] MEDS: ACETAMINOPHEN/HYDROcodone 325 MG/5 MG TAB PO PRN ×2 (16:47→22:56)
[2017-03-08] MEDS: BUDESONIDE-FORMOTEROL 160/4.5 MCG INHALER INH SCH (21:00)
[2017-03-08] MEDS: SODIUM CHLORIDE 0.9% FLUSH 10 ML FLUSH IV FLUSH SCH (21:00)
[2017-03-08] MEDS: ATORVASTATIN 40 MG TAB PO SCH (21:34)
[2017-03-08] MEDS: HEPARIN SODIUM - SQ 10,000 UNITS/ML VIAL SQ SCH (21:35)
[2017-03-08] MEDS: HYDROmorphone HCL PF 2 MG/ML VIAL IV PUSH PRN (21:42)
[2017-03-09] VITALS (11 sets, daily range): BP systolic 112–142; BP diastolic 76–89; PULSE 55–85; RESP 17–20; TEMP 97.5–98.4; O2SAT 93–100
[2017-03-09] MEDS: FUROSEMIDE 40 MG/4 ML VIAL IV PUSH SCH ×2 (03:19→14:26)
[2017-03-09] MEDS: HYDROmorphone HCL PF 2 MG/ML VIAL IV PUSH PRN ×2 (03:19→18:16)
[2017-03-09] MEDS: ISOSORBIDE MONONITRATE 30 MG TAB PO SCH ×2 (06:49→07:00)
[2017-03-09] MEDS: LEVOTHYROXINE SODIUM 200 MCG TAB PO SCH (06:49)
[2017-03-09 07:16] LABS: HEMATOCRIT 26.3 % (35.0-46.0); MEAN CORPUSCULAR HEMOGLOBIN 31.5 PG (27.0-34.0); MEAN CORPUSCULAR HGB CONC 34.2 % (32.0-36.0); PLATELET COUNT 153 TH/MM3 (150-450); RED BLOOD COUNT 2.86 MIL/MM3 (4.00-5.30); RED CELL DISTRIBUTION WIDTH 16.3 % (11.6-17.2); WHITE BLOOD COUNT 11.5 TH/MM3 (4.0-11.0)
[2017-03-09 07:26] LABS: BICARBONATE 37.8 MEQ/L (21.0-32.0); CALCIUM 8.6 MG/DL (8.5-10.1); CREATININE 0.69 MG/DL (0.50-1.00)
[2017-03-09] MEDS: RESP: ALBUTEROL 2.5 MG/IPRATROPIUM 0.5 MG NEB (PRN) NEB ×2 (08:00→19:24)
[2017-03-09] MEDS: SODIUM CHLORIDE 0.9% FLUSH 10 ML FLUSH IV FLUSH SCH ×2 (09:00→22:26)
[2017-03-09] MEDS: PANTOPRAZOLE SODIUM 40 MG VIAL IV PUSH SCH ×2 (09:15→22:29)
[2017-03-09] MEDS: BUDESONIDE-FORMOTEROL 160/4.5 MCG INHALER INH SCH ×2 (09:16→22:26)
[2017-03-09] MEDS: TIOTROPIUM BROMIDE 18 MCG INH INH SCH (09:16)
[2017-03-09] MEDS: SPIRONOLACTONE 25 MG TAB PO SCH (09:17)
[2017-03-09] MEDS: AMIODARONE 200 MG TAB PO SCH (09:17)
[2017-03-09] MEDS: POTASSIUM CHLORIDE 20 MEQ CONTROLLED RELEASE TAB PO SCH ×2 (09:17→22:26)
[2017-03-09] MEDS: HEPARIN SODIUM - SQ 10,000 UNITS/ML VIAL SQ SCH ×2 (09:18→22:25)
[2017-03-09] MEDS: METOPROLOL TARTRATE 25 MG TAB PO SCH ×2 (09:18→22:26)
[2017-03-09] MEDS: ERTAPENEM INJ 1,000 MG in SODIUM CHLORIDE 0.9% INJ 100 ML IV SCH (10:45)
[2017-03-09] MEDS: HYDROCORTISONE SOD SUCCINATE 100 MG VIAL IV SCH ×2 (10:45→22:26)
--- NOTE | 2017-03-09 13:01 | HHI.PR ---
Subjective Remarks no pain complains seen with family at bedside baseline almost bedbound very interactive Objective Vitals Vital Signs Date Time Temp Pulse Resp B/P (MAP) Pulse Ox O2 Delivery O2 Flow Rate FiO2 03/09/17 12:36 97.6 55 20 141/76 (97) 100 03/09/17 08:00 97.5 79 18 132/89 (103) 97 03/09/17 07:54 96 Nasal Cannula 3.00 03/09/17 04:52 93 Nasal Cannula 3.00 03/09/17 00:00 98.4 75 17 112/80 (91) 96 03/08/17 20:02 97 Nasal Cannula 2.00 03/08/17 20:00 79 03/08/17 20:00 98.7 79 22 107/72 (84) 97 03/08/17 16:00 97.4 76 23 129/92 (104) 98 I/O 03/08/17 03/08/17 03/08/17 03/09/17 03/09/17 03/09/17 07:00 15:00 23:00 07:00 15:00 23:00 Intake Total 340 ml 2650 ml Output Total 2375 ml 1465 ml 180 ml Balance -2035 ml 1185 ml -180 ml Intake Oral 240 ml 1920 ml IV Total 100 ml 730 ml Output Urine Total 2250 ml 1400 ml 150 ml Drainage Total 125 ml 65 ml 30 ml # Bowel Movements 0 Result Diagram: 03/09/17 0625 03/09/17 0625 Imaging Last Impressions Chest X-Ray 03/06/17 0600 Signed Impressions: Service Date/Time: Monday, March 06, 2017 04:18 - CONCLUSION: 1. Cardiomegaly. 2. The floor lobe atelectasis, consolidation and/or effusion. 3. Patchy consolidation or atelectasis in the right perihilar region. Savage Victoria MD Angiography 02/27/17 1219 Signed Impressions: Service Date/Time: Monday, February 27, 2017 11:03 - CONCLUSION: No evidence of arterial injury and no findings to indicate site of bleeding to account for anterior abdominal wall hematoma. Savage Aranda MD Aorta CTA 02/26/17 0000 Signed Impressions: Service Date/Time: February 19:19 - CONCLUSION: 1. Large anterior abdominal wall hematoma. 2. No aortic dissection or aneurysm. 3. Changes involving the liver suggesting cirrhosis. 4. Cholelithiasis. 5. Bibasilar atelectasis. 6. Cardiomegaly. Kiet Camarena Jr., MD Neck CTA 02/22/17 0000 Signed Impressions: Service Date/Time: Wednesday, February 22, 2017 06:25 - CONCLUSION: 1. Prominent atherosclerotic disease at carotid bulbs resulting in approximately 70%% stenosis of the proximal right ICA at its origin and approximately 40-50%% stenosis of the proximal left ICA. 2. Moderate grade stenosis of the proximal left common carotid artery at its origin. Gurdeep Laird MD Head CTA 02/22/17 0000 Signed Impressions: Service Date/Time: Wednesday, February 22, 2017 06:25 - CONCLUSION: No evidence of proximal high-grade stenosis or occlusion. Gurdeep Laird MD Head CT 02/22/17 0000 Signed Impressions: Service Date/Time: Wednesday, February 22, 2017 06:25 - CONCLUSION: Normal examination for a patient of this age. No significant change has occurred. Billy Weems MD Objective Remarks awake and oriented x 3 anciteric decrease breath sounds- regular rhythm abdomen- flabby soft, nontender, post op dressing in place- lower abdomen lee in place extremities- moves all spontaneously Urinary Catheter: Yes Assessment to: Continue Lee insert reason: Prolonged Immobilization A/P Assessment and Plan Neuro: TIA- patient awake and alert, interactive Carotid Stenosis - Xanax 0.25 mg every 6 hours when necessary for anxiety - Dilaudid and oxycodone when necessary for pain control - Previously planned CEA postponed indefinitely - PT daily CVA/Heme: S/P Hemorrhagic shock-resolved Large anterior abdominal wall/rectus sheath hematoma post cardiac catheterization-resolved. Paroxsymal Atrial fibrillation with RVR, now in NSR coronary Artery disease History of hypothyroidism - Status post approximately 14 units PRBC, 4 units of FFP, 2 units of platelets , 2 cryo, including 2 units of PRBC - Anterior abdominal wall hematoma on CTA. No active leak - s/p abdominal wall hematoma evacuation 03/[address] Zhang - Lasix to 40 q12 IV- change to po in am - continue aldactone 12.5 daily 03/04. - At home On chronic prednisone 5 mg twice a day. Continue stress dose steroids reduced to 50 mg IV every 8 hours 03/03/17, start slow taper back down to daily prednisone dose. - Synthroid 200 g daily - NSR, On amiodarone 200 mg po daily - Metoprolol at a lower dose 25 mg twice a day - Hold anticoagulation due to blood loss. Hold all antiplatelet therapy - 2D Echo Normal left ventricular size. LVEF 50-55%. - Cardiology - Dr. Juarez ff - ASA daily Resp: Acute hypoxemic respiratory failure Acute COPD exacerbation- per patient 02 dependent at home Healthcare associated pneumonia/ MDR E Coli - Intubated by anesthesia for angiography, Extubated 03/01 but requiring BiPAP PRN and night. intubated for hematoma evacuation 03/05 - CXR resolving slowly improving infiltrates - DuoNeb every 4 hours and when necessary - Symbicort and Spiriva. Receiving steroids as hydrocortisone - wean fio2 as tolerated for goal spo2 > 90%- 02 dependent - nebs, vent bundle, hob elevated. - Extubated 03/07 - increase PT/OT - continue on Invanz till 03/17- ID ff GI: Transaminitis-improving - Abdominal wall hematoma management as above - Elevated liver enzymes secondary to shock-now improving : Acute on chronic kidney failure - Acute kidney failure secondary to ATN, steadily improving - IV Lasix, Diamox as above, Aldactone 12.5 mg daily - Creatinine actually improving with diuresis ID Healthcare associated pneumonia with MDR E Coli - on Invanz 1 g daily 03/05/17- till 03/12 Hypothyroidism - Continue Synthroid 200 g daily DVT GI prophylaxis - Teds/SCDs - SQH 5000 q12h. - PPI Natali Camara MD Mar 09, 2017 13:01
--- NOTE | 2017-03-09 14:24 | HHI.IDPN ---
Note Infectious Disease Note Patient feels okay. O2 via nasal canula. Notes pains in the back and joints. Had been on study arthritis drug. Afebrile. Post evacuation of abdominal wall hematoma. Patient presented to [place] emergency department on 02/22 with generalized weakness. PAST MEDICAL HISTORY: 1. hypertension 2. Hyperlipidemia 3. polycystic kidney disease 4. Hypothyroidism 5. coronary artery disease 6. history of coronary bypass graft surgery 7. atrial fibrillation status post ablation times four 8. AICD placement 9. Tonsillectomy 10. bilateral tubal ligation 11. Arthritis ALLERGIES VANCOMYCIN LEVAQUIN ERYTHROMYCIN AZITHROMYCIN CYCLOSPORIN MRI precaution. MEDICATIONS Current Medications Medications (Trade) Dose Ordered Sig/Alexa Route PRN Reason Start Time Stop Time Status Last Admin Dose Admin Aspirin (Aspirin) 325 mg DAILY PO 02/23/17 09:00 Future Hold 02/25/17 08:24 Amiodarone HCl (Cordarone) 200 mg DAILY PO 02/23/17 09:00 Future hold 03/09/17 09:17 Atorvastatin Calcium (Lipitor) 40 mg HS PO 02/22/17 21:00 03/08/17 21:34 Bumetanide (Bumetanide) 1 mg DAILY PO 02/23/17 09:00 Future Hold Isosorbide Mononitrate (Imdur) 30 mg DAILY@0700 PO 02/23/17 07:00 03/09/17 06:49 Levothyroxine Sodium (Synthroid) 200 mcg DAILY@0600 PO 02/23/17 06:00 Future hold 03/09/17 06:49 Sacubitril/ Valsartan (Entresto 97-103 Mg) 1 tab BID PO 02/22/17 21:00 Future Hold 02/22/17 21:16 Spironolactone (Aldactone) 12.5 mg DAILY PO 02/23/17 09:00 Future hold 03/09/17 09:17 Venlafaxine HCl (Effexor Xr) 75 mg DAILY PO 02/23/17 09:00 Future Hold 03/03/17 08:53 Miscellaneous (Pill Splitter) 1 ea UNSCH PRN OTHER SEE LABEL COMMENTS 02/22/17 11:00 Acetaminophen/ Hydrocodone Bitart (Straughn 5-325 Mg) 1 tab Q6H PRN PO PAIN 1-5 02/22/17 13:00 03/08/17 22:56 Prednisone (Deltasone) 5 mg BID PO 02/22/17 21:00 Future Hold 02/26/17 09:19 Sodium Chloride (NS Flush) 2 ml BID IV FLUSH 02/26/17 21:00 03/09/17 09:00 Sodium Chloride (NS Flush) 2 ml UNSCH PRN IV FLUSH FLUSH AFTER USING IV ACCESS 02/26/17 16:15 Ondansetron HCl (Zofran Inj) 4 mg Q4H PRN IV PUSH NAUSEA OR VOMITING 02/26/17 23:00 Pantoprazole Sodium (Protonix Inj) 40 mg Q12H IV PUSH 02/27/17 08:00 03/09/17 09:15 Hydromorphone HCl (Dilaudid Pf Inj) 1 mg Q3H PRN IV PUSH Pain 6-10 02/27/17 07:15 03/09/17 03:19 Potassium Chloride (KCl) 20 meq Q12HR PO 03/01/17 21:00 03/09/17 09:17 Albuterol/ Ipratropium (Duoneb Neb) 1 ampule Q2HR NEB PRN NEB SHORTNESS OF BREATH 03/02/17 08:15 03/09/17 08:00 Budesonide/ Formoterol Fumarate (Symbicort 160-4.5 Mcg Inh) 2 puff Q12HR INH 03/02/17 09:00 03/09/17 09:16 Tiotropium [place] (Spiriva Inh) 18 mcg DAILY INH 03/02/17 09:00 03/09/17 09:16 Potassium Chloride 100 ml @ 50 mls/hr Q2H PRN IV For Potassium 2.8 - 3.2 mEq/L 03/03/17 09:45 03/03/17 11:40 Potassium Chloride 100 ml @ 50 mls/hr Q2H PRN IV For Potassium 2.8 - 3.2 mEq/L 03/03/17 09:45 Potassium Bicarb/ Potassium Chloride (K-Lyte Cl Eff) 50 meq UNSCH PRN PO For Potassium 3.3 - 3.5 mEq/L 03/03/17 09:45 Potassium Chloride 100 ml @ 25 mls/hr UNSCH PRN IV For Potassium 3.3 - 3.5 mEq/L 03/03/17 09:45 03/08/17 06:04 Potassium Chloride 100 ml @ 50 mls/hr Q2H PRN IV For Potassium 3.3 - 3.5 mEq/L 03/03/17 09:45 Magnesium Sulfate 4 gm/Sodium Chloride 100 ml @ 50 mls/hr UNSCH PRN IV For Magnesium 0.9 - 1.1 mg/dL 03/03/17 09:45 Magnesium Oxide (Mag-Ox) 800 mg UNSCH PRN PO For Magnesium 1.2 - 1.6 mg/dL 03/03/17 09:45 Magnesium Sulfate 2 gm/Sodium Chloride 100 ml @ 50 mls/hr UNSCH PRN IV For Magnesium 1.2 - 1.6 mg/dL 03/03/17 09:45 Potassium Phosphate (K-Phos) 2,000 mg Q4H PRN PO For Phosphorus < 2.5 mg/dL 03/03/17 09:45 Sodium Phosphate 30 mmol/Sodium Chloride 250 ml @ 42 mls/hr UNSCH PRN IV For Phosphorus < 2.5 mg/dL 03/03/17 09:45 Potassium Phosphate (K-Phos) 2,000 mg UNSCH PRN PO/TUBE SEE LABEL COMMENTS 03/03/17 09:45 Potassium Phosphate 30 mmol/ Sodium Chloride 260 ml @ 42 mls/hr UNSCH PRN IV SEE LABEL COMMENTS 03/03/17 09:45 Furosemide (Lasix Inj) 40 mg Q12H IV PUSH 03/04/17 14:00 03/09/17 03:19 Metoprolol Tartrate (Lopressor) 25 mg BID PO 03/04/17 09:00 03/09/17 09:18 Alprazolam (Xanax) 0.25 mg Q6H PRN PO anxiety 03/05/17 06:45 03/05/17 07:26 Ertapenem 1000 mg/ Sodium Chloride 100 ml @ 200 mls/hr Q24H IV 03/05/17 09:00 03/09/17 10:45 Hydrocortisone Sodium Succinate (SoluCORTEF INJ) 25 mg Taper Q12HR IV 03/06/17 21:00 03/12/17 20:59 03/09/17 10:45 Prednisone (Deltasone) 5 mg DAILY PO 03/13/17 09:00 Heparin Sodium (Porcine) (Heparin Inj) 5,000 units Q12HR SQ 03/07/17 21:00 03/09/17 09:18 OBJECTIVE: Vital Signs Date Time Temp Pulse Resp B/P (MAP) Pulse Ox O2 Delivery O2 Flow Rate FiO2 03/08/17 12:00 98.4 76 15 164/77 (106) 99 03/08/17 12:00 75 03/08/17 08:00 98.5 75 14 111/67 (82) 99 03/08/17 08:00 75 03/08/17 04:00 96.4 76 15 111/68 (82) 99 03/08/17 04:00 76 03/08/17 00:00 75 03/08/17 00:00 98.1 75 15 99/66 (77) 94 03/07/17 22:17 95 Nasal Cannula 3.00 03/07/17 20:00 78 03/07/17 20:00 97.8 78 16 116/63 (80) 95 03/07/17 16:45 99 Nasal Cannula 2 03/07/17 16:00 40 03/07/17 16:00 98.6 79 23 128/75 (92) 100 03/07/17 16:00 79 03/07/17 15:09 100 40 Laboratory Tests Test 03/08/17 03:40 03/09/17 06:25 White Blood Count 10.6 TH/MM3 11.5 TH/MM3 Red Blood Count 2.83 MIL/MM3 2.86 MIL/MM3 Hemoglobin 8.9 GM/DL 9.0 GM/DL Hematocrit 26.3 % 26.3 % Mean Corpuscular Volume 93.0 FL 92.0 FL Mean Corpuscular Hemoglobin 31.6 PG 31.5 PG Mean Corpuscular Hemoglobin Concent 34.0 % 34.2 % Red Cell Distribution Width 16.7 % 16.3 % Platelet Count 141 TH/MM3 153 TH/MM3 Mean Platelet Volume 7.0 FL 6.0 FL Laboratory Tests Test 03/08/17 03:40 03/09/17 06:25 Blood Urea Nitrogen 33 MG/DL 29 MG/DL Creatinine 0.71 MG/DL 0.69 MG/DL Random Glucose 87 MG/DL 77 MG/DL Calcium Level 8.5 MG/DL 8.6 MG/DL Sodium Level 146 MEQ/L 141 MEQ/L Potassium Level 3.4 MEQ/L 3.3 MEQ/L Chloride Level 104 MEQ/L 98 MEQ/L Carbon Dioxide Level 37.6 MEQ/L 37.8 MEQ/L Anion Gap 4 MEQ/L 5 MEQ/L Estimat Glomerular Filtration Rate 84 ML/MIN 87 ML/MIN Microbiology Date/Time Source Procedure Growth Status 03/06/17 11:59 Abscess Other Fungal Smear - Final NO FUNGAL ELEMENTS SEEN. Resulted 03/06/17 11:59 Abscess Other Fungal Culture Pending Resulted 03/06/17 11:59 Abscess Other Acid Fast Stain Pending Received 03/06/17 11:59 Abscess Other Mycobacterial Culture Pending Received 03/06/17 11:59 Abscess Other Gram Stain - Final Resulted 03/06/17 11:59 Abscess Other Wound Culture - Preliminary NO GROWTH IN 48 HOURS. Resulted IMAGING: Chest X-Ray 03/06/17 0600 Signed Impressions: Service Date/Time: Monday, March 06, 2017 04:18 - CONCLUSION: 1. Cardiomegaly. 2. The floor lobe atelectasis, consolidation and/or effusion. 3. Patchy consolidation or atelectasis in the right perihilar region. Savage Victoria MD Chest X-Ray 03/03/17 0600 Signed Impressions: Service Date/Time: Friday, March 03, 2017 04:52 - CONCLUSION: Increasing partially consolidative infiltrates in the right upper and right lower lung. Persistent lobar consolidation left lower lobe. Kiet Rob MD Chest X-Ray 03/02/17 0600 Signed Impressions: Service Date/Time: Thursday, March 02, 2017 03:47 - CONCLUSION: There is no subsegmental consolidative infiltrate in the right upper lobe. Persistent left lower lobe consolidation. Kiet Rob MD Angiography 02/27/17 1219 Signed Impressions: Service Date/Time: Monday, February 27, 2017 11:03 - CONCLUSION: No evidence of arterial injury and no findings to indicate site of bleeding to account for anterior abdominal wall hematoma. Savage Aranda MD Aorta CTA 02/26/17 0000 Signed Impressions: Service Date/Time: February 19:19 - CONCLUSION: 1. Large anterior abdominal wall hematoma. 2. No aortic dissection or aneurysm. 3. Changes involving the liver suggesting cirrhosis. 4. Cholelithiasis. 5. Bibasilar atelectasis. 6. Cardiomegaly. Kiet Camarena Jr., MD Neck CTA 02/22/17 0000 Signed Impressions: Service Date/Time: Wednesday, February 22, 2017 06:25 - CONCLUSION: 1. Prominent atherosclerotic disease at carotid bulbs resulting in approximately 70%% stenosis of the proximal right ICA at its origin and approximately 40-50%% stenosis of the proximal left ICA. 2. Moderate grade stenosis of the proximal left common carotid artery at its origin. Gurdeep Laird MD Head CTA 02/22/17 0000 Signed Impressions: Service Date/Time: Wednesday, February 22, 2017 06:25 - CONCLUSION: No evidence of proximal high-grade stenosis or occlusion. Gurdeep Laird MD Head CT 02/22/17 0000 Signed Impressions: Service Date/Time: Wednesday, February 22, 2017 06:25 - CONCLUSION: Normal examination for a patient of this age. No significant change has occurred. Billy Weems MD PHYSICAL EXAMINATION: GENERAL: Awake and alert. HEENT: No icterus. Moist mucosa. NECK: No swelling or adenopathy. LUNGS: Breath sounds decreased. Slight rhonchi. HEART: Irregular rate and rhythm. No murmurs audible. ABDOMEN: Distended. Soft, non tender. EXTREMITIES: No clubbing or cyanosis or edema. SKIN: No diffuse rash. NEUROLOGIC: Non focal. PSYCH: Calm and cooperative. IMPRESSION 1. Hemorrhagic shock. Patient developed hypotension and tachycardia and abdominal wall hematoma. Post evacuation of large amount of clotted blood from abdomen. 2. Leukocytosis. Improved. 3. Acute kidney disease. The patient received contrast for radiographic study and also she was hypotensive and may have had also hypotensive insult to the kidney. improving. 4. Lung infiltrate. VAP - E.coli. 5. Multiple antibiotic allergies. Improved. RECOMMENDATIONS 1. Continue Ertapenem until 03/12/17. for PNA. 2. Monitor clinical status. Antonio Tobar MD Mar 09, 2017 14:24
--- NOTE | 2017-03-09 16:12 | PD.CARD.PN ---
Subjective Subjective Remarks alert in nad on nc Objective Medications Current Medications Medications (Trade) Dose Ordered Sig/Alexa Route Start Time Stop Time Status Last Admin (Aspirin) 325 mg DAILY PO 02/23/17 09:00 Future Hold 02/25/17 08:24 (Cordarone) 200 mg DAILY PO 02/23/17 09:00 Future hold 03/09/17 09:17 (Lipitor) 40 mg HS PO 02/22/17 21:00 03/08/17 21:34 (Bumetanide) 1 mg DAILY PO 02/23/17 09:00 Future Hold (Imdur) 30 mg DAILY@0700 PO 02/23/17 07:00 03/09/17 06:49 (Synthroid) 200 mcg DAILY@0600 PO 02/23/17 06:00 Future hold 03/09/17 06:49 (Entresto 97-103 Mg) 1 tab BID PO 02/22/17 21:00 Future Hold 02/22/17 21:16 (Aldactone) 12.5 mg DAILY PO 02/23/17 09:00 Future hold 03/09/17 09:17 (Effexor Xr) 75 mg DAILY PO 02/23/17 09:00 Future Hold 03/03/17 08:53 (Pill Splitter) 1 ea UNSCH PRN OTHER 02/22/17 11:00 ([place]can 5-325 Mg) 1 tab Q6H PRN PO 02/22/17 13:00 03/08/17 22:56 (Deltasone) 5 mg BID PO 02/22/17 21:00 Future Hold 02/26/17 09:19 (NS Flush) 2 ml BID IV FLUSH 02/26/17 21:00 03/09/17 09:00 (NS Flush) 2 ml UNSCH PRN IV FLUSH 02/26/17 16:15 (Zofran Inj) 4 mg Q4H PRN IV PUSH 02/26/17 23:00 (Protonix Inj) 40 mg Q12H IV PUSH 02/27/17 08:00 03/09/17 09:15 (Dilaudid Pf Inj) 1 mg Q3H PRN IV PUSH 02/27/17 07:15 03/09/17 03:19 (KCl) 20 meq Q12HR PO 03/01/17 21:00 1/29/18 09:17 (Duoneb Neb) 1 ampule Q2HR NEB PRN NEB 03/02/17 08:15 03/09/17 08:00 (Symbicort 160-4.5 Mcg Inh) 2 puff Q12HR INH 03/02/17 09:00 03/09/17 09:16 (Spiriva Inh) 18 mcg DAILY INH 03/02/17 09:00 03/09/17 09:16 Potassium Chloride 100 ml @ 50 mls/hr Q2H PRN IV 03/03/17 09:45 03/03/17 11:40 Potassium Chloride 100 ml @ 50 mls/hr Q2H PRN IV 03/03/17 09:45 (K-Lyte Cl Eff) 50 meq UNSCH PRN PO 03/03/17 09:45 Potassium Chloride 100 ml @ 25 mls/hr UNSCH PRN IV 03/03/17 09:45 03/08/17 06:04 Potassium Chloride 100 ml @ 50 mls/hr Q2H PRN IV 03/03/17 09:45 Magnesium Sulfate 4 gm/Sodium Chloride 100 ml @ 50 mls/hr UNSCH PRN IV 03/03/17 09:45 (Mag-Ox) 800 mg UNSCH PRN PO 03/03/17 09:45 Magnesium Sulfate 2 gm/Sodium Chloride 100 ml @ 50 mls/hr UNSCH PRN IV 03/03/17 09:45 (K-Phos) 2,000 mg Q4H PRN PO 03/03/17 09:45 Sodium Phosphate 30 mmol/Sodium Chloride 250 ml @ 42 mls/hr UNSCH PRN IV 03/03/17 09:45 (K-Phos) 2,000 mg UNSCH PRN PO/TUBE 03/03/17 09:45 Potassium Phosphate 30 mmol/ Sodium Chloride 260 ml @ 42 mls/hr UNSCH PRN IV 03/03/17 09:45 (Lasix Inj) 40 mg Q12H IV PUSH 03/04/17 14:00 03/09/17 14:26 (Lopressor) 25 mg BID PO 03/04/17 09:00 03/09/17 09:18 (Xanax) 0.25 mg Q6H PRN PO 03/05/17 06:45 03/05/17 07:26 Ertapenem 1000 mg/ Sodium Chloride 100 ml @ 200 mls/hr Q24H IV 03/05/17 09:00 03/12/17 11:00 03/09/17 10:45 (SoluCORTEF INJ) 25 mg Taper Q12HR IV 03/06/17 21:00 03/12/17 20:59 03/09/17 10:45 (Deltasone) 5 mg DAILY PO 03/13/17 09:00 (Heparin Inj) 5,000 units Q12HR SQ 03/07/17 21:00 03/09/17 09:18 Vital Signs / I&O Vital Signs Date Time Temp Pulse Resp B/P (MAP) Pulse Ox O2 Delivery O2 Flow Rate FiO2 03/09/17 12:36 97.6 55 20 141/76 (97) 100 03/09/17 12:00 78 03/09/17 09:30 78 03/09/17 08:00 97.5 79 18 132/89 (103) 97 03/09/17 07:54 96 Nasal Cannula 3.00 03/09/17 04:52 93 Nasal Cannula 3.00 03/09/17 00:00 98.4 75 17 112/80 (91) 96 03/08/17 20:02 97 Nasal Cannula 2.00 03/08/17 20:00 79 03/08/17 20:00 98.7 79 22 107/72 (84) 97 I/O 03/08/17 03/08/17 03/08/17 03/09/17 03/09/17 03/09/17 07:00 15:00 23:00 07:00 15:00 23:00 Intake Total 340 ml 2650 ml 100 ml Output Total 2375 ml 1465 ml 180 ml Balance -2035 ml 1185 ml -180 ml 100 ml Intake Oral 240 ml 1920 ml IV Total 100 ml 730 ml 100 ml Output Urine Total 2250 ml 1400 ml 150 ml Drainage Total 125 ml 65 ml 30 ml # Bowel Movements 0 Physical Exam GENERAL: SKIN: Warm and dry. HEAD: Normocephalic. EYES: No scleral icterus. No injection or drainage. NECK: Supple, trachea midline. No JVD or lymphadenopathy. CARDIOVASCULAR: Regular rate and rhythm without murmurs, gallops, or rubs. RESPIRATORY: Breath sounds equal bilaterally. No accessory muscle use. GASTROINTESTINAL: Abdomen soft, non-tender, nondistended. MUSCULOSKELETAL: No cyanosis, or edema. BACK: Nontender without obvious deformity. No CVA tenderness. Laboratory Laboratory Tests Test 03/09/17 06:25 White Blood Count 11.5 TH/MM3 Red Blood Count 2.86 MIL/MM3 Hemoglobin 9.0 GM/DL Hematocrit 26.3 % Mean Corpuscular Volume 92.0 FL Mean Corpuscular Hemoglobin 31.5 PG Mean Corpuscular Hemoglobin Concent 34.2 % Red Cell Distribution Width 16.3 % Platelet Count 153 TH/MM3 Mean Platelet Volume 6.0 FL Blood Urea Nitrogen 29 MG/DL Creatinine 0.69 MG/DL Random Glucose 77 MG/DL Calcium Level 8.6 MG/DL Sodium Level 141 MEQ/L Potassium Level 3.3 MEQ/L Chloride Level 98 MEQ/L Carbon Dioxide Level 37.8 MEQ/L Anion Gap 5 MEQ/L Estimat Glomerular Filtration Rate 87 ML/MIN Assessment and Plan Problem List: (1) PVD (peripheral vascular disease) ICD Codes: I73.9 - Peripheral vascular disease, unspecified (2) Anemia ICD Codes: D64.9 - Anemia, unspecified (3) Abdominal hematoma ICD Codes: S30.1XXA - Contusion of abdominal wall, initial encounter (4) Obesity ICD Codes: E66.9 - Obesity Status: Acute (5) SOB (shortness of breath) ICD Codes: R06.02 - SOB (shortness of breath) Status: Acute (6) Hx of coronary artery disease ICD Codes: Z86.79 - Personal history of other diseases of the circulatory system (7) Atrial fibrillation ICD Codes: I48.91 - Atrial fibrillation Status: Chronic (8) DM (diabetes mellitus) ICD Codes: E11.9 - DM (diabetes mellitus) Status: Chronic (9) Carotid stenosis ICD Codes: I65.29 - Occlusion and stenosis of unspecified carotid artery (10) History of four vessel coronary artery bypass graft ICD Codes: Z95.1 - Presence of aortocoronary bypass graft Assessment and Plan 1.) CAD - i could not image lyles, ow good flow to iw, lw, anterior wall with good wall motion but cant rule out lyles or lad disease therefore patient is moderate to high risk for noncardiac surgery, d/w Dr Cruz 2.) abdominal hematoma - rp bleed and groin hematoma ruled out, arterial injury and active bleeding from cath ruled out by angio 02/27/17, still requiring transfusion despite angiogram demonstrating no arterial injury or active bleeding suggesting bleeding is a local abdominal source, possibly due to lovenox injections, would explain why bleeding not tamponading as adipose tissue would lower resistance than rp or groin, still requiring transfusion and pressors but mental status good and u/o > 300/shift; d/w Dr Schafer 02/28/18 3.) PAF - in af rate controlled this am hr @ 85, ac held due to abdominal hematoma 4.) Carotid stenosis - surgery postponed due to abdominal hematoma 5.) Anemia - hgb stablelizing, creatinine improving, u/o increasing on lasix, continue to monitor hgb; hematoma evacuation per Dr Cruz 6.) pod #3 hematoma evacuation - hemodynamically stable on minimal O2, extubated , hgb stable Problem Qualifiers (1) Atrial fibrillation: Qualified Codes: I48.0 - Paroxysmal atrial fibrillation Macho Juarez MD Mar 09, 2017 16:12
--- NOTE | 2017-03-09 17:12 | PD.CAR.PN ---
CVT Progress Note Subjective/Hospital Course: referral received full consult TF Nancy Patient stable now Neurologically remains intact The dizziness and vertigo she had is now gone in this more and more looks like a TIA Neurology consult greatly appreciated At this point agree with neurologist and I will address carotid artery while patient still in the hospital Patient is known to cardiac problems and I reviewed her echocardiogram Cardiology consulted, spoken to Dr Juarez. All things equal for right carotid endarterectomy after cardiac cath, likely Thursday or Thursday02/26/17 Patient doing better now Vertigo is gone She underwent cardiac catheterization today which reveals patent coronary vessels and fairly normal intracardiac pressures Have discussed this with Dr. Juarez At this point patient is a moderate high risk for carotid endarterectomy In face of 70% stenosis in neurologic symptoms I'm hard pressed not to offer patient to surgery as an option Patient for right carotid endarterectomy tomorrow 03/04/17 Patient now on face mask and was on BiPAP mask yesterday Abdomen is soft active bowel sounds and lower abdomen is still distended and firm I discussed care with Dr. Wan and the is clearly would be advisable to do this surgery without intubating the patient but I do not believe that this is possible due to the huge size of this Considering patient's precarious respiratory status we decided to wait another day and take the patient to the operating room Thursday for washout 03/05/17 Patient doing fairly well She is on partial rebreather mask Abdomen is soft active bowel sounds Discussed the case with Dr. Wan and we jointly made the decision to take patient to the operating room tomorrow for washout and evacuation of this large preperitoneal hematoma before it gets infected 03/06/17 Patient underwent evacuation of an enormous the properitoneal hematoma of about 1 gallon of old blood For details see operative note Patient will be draining for a while from this incision and JPs remain in place Expect significant amount of drainage from the wound considering the proximity to the skin Unfortunately patient had to be intubated for the procedure and clearly will have now be weaned gradually of the ventilator again 03/07/17 As above noted drained about 1 gallon of old; it coagulated blood from the preperitoneal space Drains placed and these will be draining for a while Drainage from the wound is expected considering the thin layer between the properitoneal space and the skin. Continue current care and change dressings as needed Nothing to add to care right now from surgical point 1/28/18 Patient doing well at this time she is awake alert and oriented Bilateral good breath sounds much improved Incision and lower abdomen is now clean and dry with no drainage through the incision itself FAZAL drains draining as expected Plan From my point patient can be transferred to the floor, be out of bed and on heart healthy diet We will revisit the issue of carotid endarterectomy in about 6-8 weeks and patient will follow-up with me in the office 03/09/17 Patient doing very well Abdominal incision is clean and dry FAZAL drainage is decreased and the return is more serosanguineous Will probably remove one of the FAZAL drains tomorrow Objective: Vital Signs Date Time Temp Pulse Resp B/P (MAP) Pulse Ox O2 Delivery O2 Flow Rate FiO2 03/09/17 16:49 100 Nasal Cannula 2.00 03/09/17 12:36 97.6 55 20 141/76 (97) 100 03/09/17 12:00 78 03/09/17 09:30 78 03/09/17 08:00 97.5 79 18 132/89 (103) 97 03/09/17 07:54 96 Nasal Cannula 3.00 03/09/17 04:52 93 Nasal Cannula 3.00 03/09/17 00:00 98.4 75 17 112/80 (91) 96 03/08/17 20:02 97 Nasal Cannula 2.00 03/08/17 20:00 79 03/08/17 20:00 98.7 79 22 107/72 (84) 97 Labs: Laboratory Tests Test 03/09/17 06:25 White Blood Count 11.5 TH/MM3 (4.0-11.0) Red Blood Count 2.86 MIL/MM3 (4.00-5.30) Hemoglobin 9.0 GM/DL (11.6-15.3) Hematocrit 26.3 % (35.0-46.0) Mean Corpuscular Volume 92.0 FL (80.0-100.0) Mean Corpuscular Hemoglobin 31.5 PG (27.0-34.0) Mean Corpuscular Hemoglobin Concent 34.2 % (32.0-36.0) Red Cell Distribution Width 16.3 % (11.6-17.2) Platelet Count 153 TH/MM3 (150-450) Mean Platelet Volume 6.0 FL (7.0-11.0) Blood Urea Nitrogen 29 MG/DL (7-18) Creatinine 0.69 MG/DL (0.50-1.00) Random Glucose 77 MG/DL (74-106) Calcium Level 8.6 MG/DL (8.5-10.1) Sodium Level 141 MEQ/L (136-145) Potassium Level 3.3 MEQ/L (3.5-5.1) Chloride Level 98 MEQ/L (98-107) Carbon Dioxide Level 37.8 MEQ/L (21.0-32.0) Anion Gap 5 MEQ/L (5-15) Estimat Glomerular Filtration Rate 87 ML/MIN (>89) Result Diagram: 03/09/17 0625 03/09/17 0625 (1) PVD (peripheral vascular disease) (2) Anemia (3) Abdominal hematoma (4) Obesity (5) SOB (shortness of breath) (6) Hx of coronary artery disease (7) Atrial fibrillation (8) DM (diabetes mellitus) (9) Carotid stenosis (10) History of four vessel coronary artery bypass graft Problem Qualifiers (1) Atrial fibrillation: Qualified Codes: I48.0 - Paroxysmal atrial fibrillation Chin Alcazar MD Mar 09, 2017 17:12
[2017-03-09] MEDS: ATORVASTATIN 40 MG TAB PO SCH (22:26)
[2017-03-10] VITALS (12 sets, daily range): BP systolic 97–125; BP diastolic 63–86; PULSE 75–82; RESP 18; TEMP 97.2–98.1; O2SAT 91–99
[2017-03-10] MEDS: FUROSEMIDE 40 MG/4 ML VIAL IV PUSH SCH ×2 (01:09→13:01)
[2017-03-10] MEDS: ALPRAZolam 0.25 MG TAB PO PRN (01:10)
[2017-03-10] MEDS: HYDROmorphone HCL PF 2 MG/ML VIAL IV PUSH PRN (01:10)
[2017-03-10] MEDS: ISOSORBIDE MONONITRATE 30 MG TAB PO SCH (06:16)
[2017-03-10] MEDS: LEVOTHYROXINE SODIUM 200 MCG TAB PO SCH (06:16)
[2017-03-10] MEDS: ACETAMINOPHEN/HYDROcodone 325 MG/5 MG TAB PO PRN ×4 (06:16→23:15)
--- NOTE | 2017-03-10 08:02 | MP ---
cc: CHIN MARTINEZ MD DATE OF SURGERY 03/06/2017 PREOPERATIVE DIAGNOSIS Large hematoma of the preperitoneal space measuring about 22 cm in diameter as a result of bleeding post-cardiac catheterization. POSTOPERATIVE DIAGNOSIS Large hematoma of the preperitoneal space measuring about 22 cm in diameter as a result of bleeding post-cardiac catheterization. OPERATIVE PROCEDURE Evacuation of a huge hematoma, irrigation with pulse lavage and drains placed. SURGEON MD Ottoniel ANESTHESIA General. ESTIMATED BLOOD LOSS But 20 cc, plus evacuation of about 4 liters of clotted blood from the abdominal wall. OPERATIVE PROCEDURE The patient was prepped and draped in the usual fashion and horizontal incision made overlying this hematoma. This one is deepened down until the hematoma is reached and extended laterally to allow for finger insertion. A huge amount of clotted old blood is removed, just about a gallon of blood. Then the area is irrigated with pulse lavage. Two FAZAL drains are placed. Cultures are obtained. The incision is closed in layers with 0 Vicryl and 2-0 Prolene. Dressing applied. The patient tolerated the procedure well. Chin CONTI/SSB /3:35 PM /7:53 AM
[2017-03-10] MEDS: PANTOPRAZOLE SODIUM 40 MG VIAL IV PUSH SCH ×2 (08:51→23:13)
[2017-03-10] MEDS: HYDROCORTISONE SOD SUCCINATE 100 MG VIAL IV SCH (08:51)
[2017-03-10] MEDS: HEPARIN SODIUM - SQ 10,000 UNITS/ML VIAL SQ SCH ×2 (08:55→23:13)
[2017-03-10] MEDS: SPIRONOLACTONE 25 MG TAB PO SCH (08:56)
[2017-03-10] MEDS: SODIUM CHLORIDE 0.9% FLUSH 10 ML FLUSH IV FLUSH SCH ×2 (08:57→23:14)
[2017-03-10] MEDS: METOPROLOL TARTRATE 25 MG TAB PO SCH ×2 (08:57→23:14)
[2017-03-10] MEDS: POTASSIUM CHLORIDE 20 MEQ CONTROLLED RELEASE TAB PO SCH ×2 (08:57→23:14)
[2017-03-10] MEDS: AMIODARONE 200 MG TAB PO SCH (08:57)
[2017-03-10] MEDS: BUDESONIDE-FORMOTEROL 160/4.5 MCG INHALER INH SCH ×2 (08:59→23:14)
[2017-03-10] MEDS: TIOTROPIUM BROMIDE 18 MCG INH INH SCH (09:00)
[2017-03-10] MEDS: ERTAPENEM INJ 1,000 MG in SODIUM CHLORIDE 0.9% INJ 100 ML IV SCH (09:12)
[2017-03-10 09:15] LABS: HEMATOCRIT 26.2 % (35.0-46.0); HEMOGLOBIN 9.1 GM/DL (11.6-15.3); MEAN CELL VOLUME 92.5 FL (80.0-100.0); MEAN CORPUSCULAR HEMOGLOBIN 31.9 PG (27.0-34.0); MEAN CORPUSCULAR HGB CONC 34.5 % (32.0-36.0); MEAN PLATELET VOLUME 7.2 FL (7.0-11.0); PLATELET COUNT 160 TH/MM3 (150-450); RED BLOOD COUNT 2.83 MIL/MM3 (4.00-5.30); RED CELL DISTRIBUTION WIDTH 16.4 % (11.6-17.2); WHITE BLOOD COUNT 15.3 TH/MM3 (4.0-11.0)
[2017-03-10 09:25] LABS: BICARBONATE 40.5 MEQ/L (21.0-32.0); CALCIUM 8.3 MG/DL (8.5-10.1); CREATININE 0.68 MG/DL (0.50-1.00)
--- NOTE | 2017-03-10 10:03 | HHI.PR ---
Subjective Remarks awake and alert, good po + flatus no pain complains Objective Vitals Vital Signs Date Time Temp Pulse Resp B/P (MAP) Pulse Ox O2 Delivery O2 Flow Rate FiO2 03/10/17 09:32 77 03/10/17 09:14 99 Nasal Cannula 2.00 03/10/17 08:46 97.2 78 18 109/63 (78) 99 03/10/17 05:06 98.0 77 18 111/63 (79) 95 03/10/17 04:38 75 03/10/17 01:43 18 03/10/17 00:10 98.1 82 18 113/66 (82) 99 03/10/17 00:00 78 03/09/17 20:10 97.7 80 18 121/78 (92) 98 03/09/17 20:00 81 03/09/17 16:49 100 Nasal Cannula 2.00 03/09/17 16:00 97.9 80 18 142/78 (99) 95 03/09/17 16:00 85 03/09/17 12:36 97.6 55 20 141/76 (97) 100 03/09/17 12:00 78 I/O 03/09/17 03/09/17 03/09/17 03/10/17 03/10/17 03/10/17 07:00 15:00 23:00 07:00 15:00 23:00 Intake Total 580 ml 720 ml Output Total 180 ml 950 ml 25 ml 1340 ml Balance -180 ml -370 ml -25 ml -620 ml Intake Oral 480 ml 720 ml IV Total 100 ml Output Urine Total 150 ml 950 ml 1300 ml Drainage Total 30 ml 25 ml 40 ml Result Diagram: 03/10/17 0827 03/10/17 0827 Imaging Last Impressions Chest X-Ray 03/06/17 0600 Signed Impressions: Service Date/Time: Monday, March 06, 2017 04:18 - CONCLUSION: 1. Cardiomegaly. 2. The floor lobe atelectasis, consolidation and/or effusion. 3. Patchy consolidation or atelectasis in the right perihilar region. Savage Victoria MD Angiography 02/27/17 1219 Signed Impressions: Service Date/Time: Monday, February 27, 2017 11:03 - CONCLUSION: No evidence of arterial injury and no findings to indicate site of bleeding to account for anterior abdominal wall hematoma. Savage Aranda MD Aorta CTA 02/26/17 0000 Signed Impressions: Service Date/Time: February 19:19 - CONCLUSION: 1. Large anterior abdominal wall hematoma. 2. No aortic dissection or aneurysm. 3. Changes involving the liver suggesting cirrhosis. 4. Cholelithiasis. 5. Bibasilar atelectasis. 6. Cardiomegaly. Kiet Camarena Jr., MD Neck CTA 02/22/17 0000 Signed Impressions: Service Date/Time: Wednesday, February 22, 2017 06:25 - CONCLUSION: 1. Prominent atherosclerotic disease at carotid bulbs resulting in approximately 70%% stenosis of the proximal right ICA at its origin and approximately 40-50%% stenosis of the proximal left ICA. 2. Moderate grade stenosis of the proximal left common carotid artery at its origin. Gurdeep Laird MD Head CTA 02/22/17 0000 Signed Impressions: Service Date/Time: Wednesday, February 22, 2017 06:25 - CONCLUSION: No evidence of proximal high-grade stenosis or occlusion. Gurdeep Laird MD Head CT 02/22/17 0000 Signed Impressions: Service Date/Time: Wednesday, February 22, 2017 06:25 - CONCLUSION: Normal examination for a patient of this age. No significant change has occurred. Billy Weems MD Objective Remarks awake and oriented x 3 anciteric decrease breath sounds-no rale sor wheezes regular rhythm abdomen- flabby soft, nontender, post op dressing/JPdrain in place- lower abdomen lee in place extremities- moves all spontaneously Urinary Catheter: Yes Assessment to: Continue Lee insert reason: Prolonged Immobilization A/P Assessment and Plan 61 years old female TIA- patient awake and alert, interactive Carotid Stenosis - Xanax 0.25 mg every 6 hours when necessary for anxiety - Dilaudid and oxycodone when necessary for pain control - Previously planned CEA postponed indefinitely- Vascular ff - PT daily.OT dialy- out of bed if possible CVA/Heme: S/P Hemorrhagic shock-resolved Large anterior abdominal wall/rectus sheath hematoma post cardiac catheterization-resolved. Paroxsymal Atrial fibrillation with RVR, now in NSR coronary Artery disease History of hypothyroidism - Status post approximately 14 units PRBC, 4 units of FFP, 2 units of platelets , 2 cryo, including 2 units of PRBC - Anterior abdominal wall hematoma on CTA. No active leak - s/p abdominal wall hematoma evacuation 03/[address] Zhang - Lasix to 40 q12 IV- change to po in am - continue aldactone 12.5 daily 03/04. - At home On chronic prednisone 5 mg twice a day. currently on stress dose steroids reduced to 50 mg IV every 8 hours 03/03/17, slow taper back down to daily prednisone dose.- on 03/13 - Synthroid 200 g daily - NSR, On amiodarone 200 mg po daily - Metoprolol at a lower dose 25 mg twice a day - Hold anticoagulation due to blood loss. Hold all antiplatelet therapy - 2D Echo Normal left ventricular size. LVEF 50-55%. - Cardiology - Dr. Juarez ff - H and H stable- restart ASA daily Resp: Acute hypoxemic respiratory failure Acute COPD exacerbation- per patient 02 dependent at home Healthcare associated pneumonia/ MDR E Coli - Intubated by anesthesia for angiography, Extubated 03/01 but requiring BiPAP PRN and night. intubated for hematoma evacuation 03/05 - CXR resolving slowly improving infiltrates - DuoNeb every 4 hours and when necessary - Symbicort and Spiriva. Receiving steroids as hydrocortisone - wean fio2 as tolerated for goal spo2 > 90%- 02 dependent - nebs, vent bundle, hob elevated. - Extubated 03/07 - increase PT/OT - continue on Invanz till 03/17- ID ff GI: Transaminitis-improving - Abdominal wall hematoma management as above - Elevated liver enzymes secondary to shock-now improving : Acute on chronic kidney failure Hypokalemia- K improved - Acute kidney failure secondary to ATN, steadily improving - IV Lasix, Diamox as above, Aldactone 12.5 mg daily - Creatinine actually improving with diuresis - monitor BMP - on KCL 20 meq po bid ID Healthcare associated pneumonia with MDR E Coli - on Invanz 1 g daily 03/05/17- till 03/12 Hypothyroidism - Continue Synthroid 200 g daily DVT GI prophylaxis - Teds/SCDs - SQH 5000 q12h. - PPI CM for DC planning- [facility]- will d/w CM- today or tomorrow if accepted Natali Camara MD Mar 10, 2017 10:03
--- NOTE | 2017-03-10 15:19 | PD.CAR.PN ---
CVT Progress Note Subjective/Hospital Course: referral received full consult TF Nancy Patient stable now Neurologically remains intact The dizziness and vertigo she had is now gone in this more and more looks like a TIA Neurology consult greatly appreciated At this point agree with neurologist and I will address carotid artery while patient still in the hospital Patient is known to cardiac problems and I reviewed her echocardiogram Cardiology consulted, spoken to Dr Juarez. All things equal for right carotid endarterectomy after cardiac cath, likely Thursday or Thursday02/26/17 Patient doing better now Vertigo is gone She underwent cardiac catheterization today which reveals patent coronary vessels and fairly normal intracardiac pressures Have discussed this with Dr. Juarez At this point patient is a moderate high risk for carotid endarterectomy In face of 70% stenosis in neurologic symptoms I'm hard pressed not to offer patient to surgery as an option Patient for right carotid endarterectomy tomorrow 03/04/17 Patient now on face mask and was on BiPAP mask yesterday Abdomen is soft active bowel sounds and lower abdomen is still distended and firm I discussed care with Dr. Wan and the is clearly would be advisable to do this surgery without intubating the patient but I do not believe that this is possible due to the huge size of this Considering patient's precarious respiratory status we decided to wait another day and take the patient to the operating room Thursday for washout 03/05/17 Patient doing fairly well She is on partial rebreather mask Abdomen is soft active bowel sounds Discussed the case with Dr. Wan and we jointly made the decision to take patient to the operating room tomorrow for washout and evacuation of this large preperitoneal hematoma before it gets infected 03/06/17 Patient underwent evacuation of an enormous the properitoneal hematoma of about 1 gallon of old blood For details see operative note Patient will be draining for a while from this incision and JPs remain in place Expect significant amount of drainage from the wound considering the proximity to the skin Unfortunately patient had to be intubated for the procedure and clearly will have now be weaned gradually of the ventilator again 03/07/17 As above noted drained about 1 gallon of old; it coagulated blood from the preperitoneal space Drains placed and these will be draining for a while Drainage from the wound is expected considering the thin layer between the properitoneal space and the skin. Continue current care and change dressings as needed Nothing to add to care right now from surgical point 1/28/18 Patient doing well at this time she is awake alert and oriented Bilateral good breath sounds much improved Incision and lower abdomen is now clean and dry with no drainage through the incision itself FAZAL drains draining as expected Plan From my point patient can be transferred to the floor, be out of bed and on heart healthy diet We will revisit the issue of carotid endarterectomy in about 6-8 weeks and patient will follow-up with me in the office 03/09/17 Patient doing very well Abdominal incision is clean and dry FAZAL drainage is decreased and the return is more serosanguineous Will probably remove one of the FAZAL drains tomorrow 03/10/17 Patient doing well Abdominal incision clean and dry no more drainage DC FAZAL drains and patient can transfer to rehabilitation any time Mino will stain for at least 2 more weeks Dry dressing to the wound change daily Objective: Vital Signs Date Time Temp Pulse Resp B/P (MAP) Pulse Ox O2 Delivery O2 Flow Rate FiO2 03/10/17 12:48 97.2 78 18 104/65 (78) 96 03/10/17 12:42 78 03/10/17 09:32 77 03/10/17 09:14 99 Nasal Cannula 2.00 03/10/17 08:46 97.2 78 18 109/63 (78) 99 03/10/17 05:06 98.0 77 18 111/63 (79) 95 03/10/17 04:38 75 03/10/17 01:43 18 03/10/17 00:10 98.1 82 18 113/66 (82) 99 03/10/17 00:00 78 03/09/17 20:10 97.7 80 18 121/78 (92) 98 03/09/17 20:00 81 03/09/17 16:49 100 Nasal Cannula 2.00 03/09/17 16:00 97.9 80 18 142/78 (99) 95 03/09/17 16:00 85 Labs: Laboratory Tests Test 03/10/17 08:27 White Blood Count 15.3 TH/MM3 (4.0-11.0) Red Blood Count 2.83 MIL/MM3 (4.00-5.30) Hemoglobin 9.1 GM/DL (11.6-15.3) Hematocrit 26.2 % (35.0-46.0) Mean Corpuscular Volume 92.5 FL (80.0-100.0) Mean Corpuscular Hemoglobin 31.9 PG (27.0-34.0) Mean Corpuscular Hemoglobin Concent 34.5 % (32.0-36.0) Red Cell Distribution Width 16.4 % (11.6-17.2) Platelet Count 160 TH/MM3 (150-450) Mean Platelet Volume 7.2 FL (7.0-11.0) Blood Urea Nitrogen 25 MG/DL (7-18) Creatinine 0.68 MG/DL (0.50-1.00) Random Glucose 91 MG/DL (74-106) Calcium Level 8.3 MG/DL (8.5-10.1) Sodium Level 140 MEQ/L (136-145) Potassium Level 3.7 MEQ/L (3.5-5.1) Chloride Level 99 MEQ/L (98-107) Carbon Dioxide Level 40.5 MEQ/L (21.0-32.0) Anion Gap 1 MEQ/L (5-15) Estimat Glomerular Filtration Rate 88 ML/MIN (>89) Result Diagram: 03/10/1727 03/10/1727 (1) PVD (peripheral vascular disease) (2) Anemia (3) Abdominal hematoma (4) Obesity (5) SOB (shortness of breath) (6) Hx of coronary artery disease (7) Atrial fibrillation (8) DM (diabetes mellitus) (9) Carotid stenosis (10) History of four vessel coronary artery bypass graft Problem Qualifiers (1) Atrial fibrillation: Qualified Codes: I48.0 - Paroxysmal atrial fibrillation Chin Alcazar MD Mar 10, 2017 15:19
[2017-03-10] MEDS ORDERED: FURO40TA PO (15:45)
[2017-03-10] MEDS ORDERED: Budeson-Formot 160-4.5 Mcg Inh INH (15:45)
[2017-03-10] MEDS ORDERED: ASPI81 CHEW (15:45)
[2017-03-10] MEDS ORDERED: POTA20TA5 PO (15:45)
--- NOTE | 2017-03-10 15:55 | PD.CARD.PN ---
Subjective Subjective Remarks alert in nad on nc Objective Medications Current Medications Medications (Trade) Dose Ordered Sig/Alexa Route Start Time Stop Time Status Last Admin (Aspirin) 325 mg DAILY PO 02/23/17 09:00 Future Hold 02/25/17 08:24 (Cordarone) 200 mg DAILY PO 02/23/17 09:00 Future hold 03/10/17 08:57 (Lipitor) 40 mg HS PO 02/22/17 21:00 03/09/17 22:26 (Bumetanide) 1 mg DAILY PO 02/23/17 09:00 Future Hold (Imdur) 30 mg DAILY@0700 PO 02/23/17 07:00 03/10/17 06:16 (Synthroid) 200 mcg DAILY@0600 PO 02/23/17 06:00 Future hold 03/10/17 06:16 (Entresto 97-103 Mg) 1 tab BID PO 02/22/17 21:00 Future Hold 02/22/17 21:16 (Aldactone) 12.5 mg DAILY PO 02/23/17 09:00 Future hold 03/10/17 08:56 (Effexor Xr) 75 mg DAILY PO 02/23/17 09:00 Future Hold 03/03/17 08:53 (Pill Splitter) 1 ea UNSCH PRN OTHER 02/22/17 11:00 ([place] 5-325 Mg) 1 tab Q6H PRN PO 02/22/17 13:00 03/10/17 13:00 (NS Flush) 2 ml BID IV FLUSH 02/26/17 21:00 03/10/17 08:57 (NS Flush) 2 ml UNSCH PRN IV FLUSH 02/26/17 16:15 (Zofran Inj) 4 mg Q4H PRN IV PUSH 02/26/17 23:00 (Protonix Inj) 40 mg Q12H IV PUSH 02/27/17 08:00 03/10/17 08:51 (Dilaudid Pf Inj) 1 mg Q3H PRN IV PUSH 02/27/17 07:15 03/10/17 01:10 (KCl) 20 meq Q12HR PO 03/01/17 21:00 03/10/17 08:57 (Duoneb Neb) 1 ampule Q2HR NEB PRN NEB 03/02/17 08:15 03/09/17 19:24 (Symbicort 160-4.5 Mcg Inh) 2 puff Q12HR INH 03/02/17 09:00 03/10/17 08:59 (Spiriva Inh) 18 mcg DAILY INH 03/02/17 09:00 03/10/17 09:00 (Lopressor) 25 mg BID PO 03/04/17 09:00 03/10/17 08:57 Ertapenem 1000 mg/ Sodium Chloride 100 ml @ 200 mls/hr Q24H IV 03/05/17 09:00 03/12/17 11:00 03/10/17 09:12 (SoluCORTEF INJ) 25 mg Taper Q12HR IV 03/06/17 21:00 03/12/17 20:59 03/10/17 08:51 (Deltasone) 5 mg DAILY PO 03/13/17 09:00 (Heparin Inj) 5,000 units Q12HR SQ 03/07/17 21:00 03/10/17 08:55 (Lasix) 40 mg BID@ PO 03/10/17 18:00 UNV (Aspirin Chew) 81 mg DAILY CHEW 03/11/17 09:00 UNV Vital Signs / I&O Vital Signs Date Time Temp Pulse Resp B/P (MAP) Pulse Ox O2 Delivery O2 Flow Rate FiO2 03/10/17 12:48 97.2 78 18 104/65 (78) 96 03/10/17 12:42 78 03/10/17 09:32 77 03/10/17 09:14 99 Nasal Cannula 2.00 03/10/17 08:46 97.2 78 18 109/63 (78) 99 03/10/17 05:06 98.0 77 18 111/63 (79) 95 03/10/17 04:38 75 03/10/17 01:43 18 03/10/17 00:10 98.1 82 18 113/66 (82) 99 03/10/17 00:00 78 03/09/17 20:10 97.7 80 18 121/78 (92) 98 03/09/17 20:00 81 03/09/17 16:49 100 Nasal Cannula 2.00 03/09/17 16:00 97.9 80 18 142/78 (99) 95 03/09/17 16:00 85 I/O 03/09/17 03/09/17 03/09/17 03/10/17 03/10/17 03/10/17 07:00 15:00 23:00 07:00 15:00 23:00 Intake Total 580 ml 720 ml 100 ml Output Total 180 ml 950 ml 25 ml 1340 ml Balance -180 ml -370 ml -25 ml -620 ml 100 ml Intake Oral 480 ml 720 ml IV Total 100 ml 100 ml Output Urine Total 150 ml 950 ml 1300 ml Drainage Total 30 ml 25 ml 40 ml Physical Exam GENERAL: SKIN: Warm and dry. HEAD: Normocephalic. EYES: No scleral icterus. No injection or drainage. NECK: Supple, trachea midline. No JVD or lymphadenopathy. CARDIOVASCULAR: Regular rate and rhythm without murmurs, gallops, or rubs. RESPIRATORY: Breath sounds equal bilaterally. No accessory muscle use. GASTROINTESTINAL: Abdomen soft, non-tender, nondistended. MUSCULOSKELETAL: No cyanosis, or edema. BACK: Nontender without obvious deformity. No CVA tenderness. Laboratory Laboratory Tests Test 03/10/17 08:27 White Blood Count 15.3 TH/MM3 Red Blood Count 2.83 MIL/MM3 Hemoglobin 9.1 GM/DL Hematocrit 26.2 % Mean Corpuscular Volume 92.5 FL Mean Corpuscular Hemoglobin 31.9 PG Mean Corpuscular Hemoglobin Concent 34.5 % Red Cell Distribution Width 16.4 % Platelet Count 160 TH/MM3 Mean Platelet Volume 7.2 FL Blood Urea Nitrogen 25 MG/DL Creatinine 0.68 MG/DL Random Glucose 91 MG/DL Calcium Level 8.3 MG/DL Sodium Level 140 MEQ/L Potassium Level 3.7 MEQ/L Chloride Level 99 MEQ/L Carbon Dioxide Level 40.5 MEQ/L Anion Gap 1 MEQ/L Estimat Glomerular Filtration Rate 88 ML/MIN Assessment and Plan Problem List: (1) PVD (peripheral vascular disease) ICD Codes: I73.9 - Peripheral vascular disease, unspecified (2) Anemia ICD Codes: D64.9 - Anemia, unspecified (3) Abdominal hematoma ICD Codes: S30.1XXA - Contusion of abdominal wall, initial encounter (4) Obesity ICD Codes: E66.9 - Obesity Status: Acute (5) SOB (shortness of breath) ICD Codes: R06.02 - SOB (shortness of breath) Status: Acute (6) Hx of coronary artery disease ICD Codes: Z86.79 - Personal history of other diseases of the circulatory system (7) Atrial fibrillation ICD Codes: I48.91 - Atrial fibrillation Status: Chronic (8) DM (diabetes mellitus) ICD Codes: E11.9 - DM (diabetes mellitus) Status: Chronic (9) Carotid stenosis ICD Codes: I65.29 - Occlusion and stenosis of unspecified carotid artery (10) History of four vessel coronary artery bypass graft ICD Codes: Z95.1 - Presence of aortocoronary bypass graft Assessment and Plan 1.) CAD - i could not image lyles, ow good flow to iw, lw, anterior wall with good wall motion but cant rule out lyles or lad disease therefore patient is moderate to high risk for noncardiac surgery, d/w Dr Cruz 2.) abdominal hematoma - rp bleed and groin hematoma ruled out, arterial injury and active bleeding from cath ruled out by angio 02/27/17, still requiring transfusion despite angiogram demonstrating no arterial injury or active bleeding suggesting bleeding is a local abdominal source, possibly due to lovenox injections, would explain why bleeding not tamponading as adipose tissue would lower resistance than rp or groin, still requiring transfusion and pressors but mental status good and u/o > 300/shift; d/w Dr Schafer 02/28/18 3.) PAF - in af rate controlled this am hr @ 85, ac held due to abdominal hematoma 4.) Carotid stenosis - surgery postponed due to abdominal hematoma, Dr Cruz following 5.) Anemia - hgb stable, creatinine baseline, continue to monitor hgb 6.) pod #4 hematoma evacuation - hemodynamically stable on minimal O2, extubated , hgb stable Problem Qualifiers (1) Atrial fibrillation: Qualified Codes: I48.0 - Paroxysmal atrial fibrillation Macho Juarez MD Mar 10, 2017 15:55
[2017-03-10] MEDS ORDERED: PRED5TAB PO (15:59)
[2017-03-10] MEDS ORDERED: HYDR100P IV (16:02)
[2017-03-10] MEDS: FUROSEMIDE 40 MG TAB PO SCH (17:38)
[2017-03-10] MEDS: ATORVASTATIN 40 MG TAB PO SCH (23:13)
[2017-03-11] VITALS: BP 103/59; PULSE 79; PULSE 80; RESP 19; TEMP 97.7; O2SAT 97
[2017-03-11 04:00] VITALS: BP 107/69; PULSE 79; RESP 19; TEMP 98.1; O2SAT 97
[2017-03-11] MEDS: ACETAMINOPHEN/HYDROcodone 325 MG/5 MG TAB PO PRN (06:42)
[2017-03-11] MEDS: ISOSORBIDE MONONITRATE 30 MG TAB PO SCH (06:42)
[2017-03-11] MEDS: LEVOTHYROXINE SODIUM 200 MCG TAB PO SCH (06:42)
[2017-03-11 08:00] VITALS: BP 83/57; PULSE 80; RESP 16; TEMP 97.8; O2SAT 94
[2017-03-11 08:46] LABS: HEMATOCRIT 25.9 % (35.0-46.0); HEMOGLOBIN 8.8 GM/DL (11.6-15.3); MEAN CELL VOLUME 93.2 FL (80.0-100.0); MEAN CORPUSCULAR HEMOGLOBIN 31.8 PG (27.0-34.0); MEAN CORPUSCULAR HGB CONC 34.1 % (32.0-36.0); MEAN PLATELET VOLUME 6.3 FL (7.0-11.0); PLATELET COUNT 123 TH/MM3 (150-450); RED BLOOD COUNT 2.78 MIL/MM3 (4.00-5.30); RED CELL DISTRIBUTION WIDTH 16.6 % (11.6-17.2); WHITE BLOOD COUNT 12.5 TH/MM3 (4.0-11.0)
[2017-03-11] MEDS ORDERED: ASPIRIN 81 MG CHEW TAB CHEW SCH (09:00)
[2017-03-11 09:04] LABS: BICARBONATE 38.6 MEQ/L (21.0-32.0); CALCIUM 8.3 MG/DL (8.5-10.1); CREATININE 0.57 MG/DL (0.50-1.00)
[2017-03-11 09:15] VITALS: BP 106/76
--- NOTE | 2017-03-11 09:20 | PD.CARD.PN ---
Subjective Subjective Remarks alert in nad on nc Objective Medications Current Medications Medications (Trade) Dose Ordered Sig/Alexa Route Start Time Stop Time Status Last Admin (Aspirin) 325 mg DAILY PO 02/23/17 09:00 Future Hold 02/25/17 08:24 (Cordarone) 200 mg DAILY PO 02/23/17 09:00 Future hold 03/10/17 08:57 (Lipitor) 40 mg HS PO 02/22/17 21:00 03/10/17 23:13 (Bumetanide) 1 mg DAILY PO 02/23/17 09:00 Future Hold (Imdur) 30 mg DAILY@0700 PO 02/23/17 07:00 03/11/17 06:42 (Synthroid) 200 mcg DAILY@0600 PO 02/23/17 06:00 Future hold 03/11/17 06:42 (Entresto 97-103 Mg) 1 tab BID PO 02/22/17 21:00 Future Hold 02/22/17 21:16 (Aldactone) 12.5 mg DAILY PO 02/23/17 09:00 Future hold 03/10/17 08:56 (Effexor Xr) 75 mg DAILY PO 02/23/17 09:00 Future Hold 03/03/17 08:53 (Pill Splitter) 1 ea UNSCH PRN OTHER 02/22/17 11:00 ([place] 5-325 Mg) 1 tab Q6H PRN PO 02/22/17 13:00 03/11/17 06:42 (NS Flush) 2 ml BID IV FLUSH 02/26/17 21:00 03/10/17 23:14 (NS Flush) 2 ml UNSCH PRN IV FLUSH 02/26/17 16:15 (Zofran Inj) 4 mg Q4H PRN IV PUSH 02/26/17 23:00 (Protonix Inj) 40 mg Q12H IV PUSH 02/27/17 08:00 03/10/17 23:13 (Dilaudid Pf Inj) 1 mg Q3H PRN IV PUSH 02/27/17 07:15 03/10/17 01:10 (KCl) 20 meq Q12HR PO 03/01/17 21:00 03/10/17 23:14 (Duoneb Neb) 1 ampule Q2HR NEB PRN NEB 03/02/17 08:15 03/09/17 19:24 (Symbicort 160-4.5 Mcg Inh) 2 puff Q12HR INH 03/02/17 09:00 03/10/17 23:14 (Spiriva Inh) 18 mcg DAILY INH 03/02/17 09:00 03/10/17 09:00 (Lopressor) 25 mg BID PO 03/04/17 09:00 03/10/17 23:14 Ertapenem 1000 mg/ Sodium Chloride 100 ml @ 200 mls/hr Q24H IV 03/05/17 09:00 03/12/17 11:00 03/10/17 09:12 (SoluCORTEF INJ) 25 mg Taper DAILY IV 03/06/17 21:00 03/12/17 20:59 03/10/17 08:51 (Deltasone) 5 mg DAILY PO 03/13/17 09:00 (Heparin Inj) 5,000 units Q12HR SQ 03/07/17 21:00 03/10/17 23:13 (Lasix) 40 mg BID@18 PO 03/10/17 18:00 03/10/17 17:38 (Aspirin Chew) 81 mg DAILY CHEW 03/11/17 09:00 Vital Signs / I&O Vital Signs Date Time Temp Pulse Resp B/P (MAP) Pulse Ox O2 Delivery O2 Flow Rate FiO2 03/11/17 08:00 97.8 80 16 94 03/11/17 04:00 98.1 79 19 107/69 (82) 97 03/11/17 00:37 18 03/11/17 00:00 80 03/11/17 00:00 97.7 79 19 103/59 (74) 97 03/10/17 20:00 97.9 79 18 97/66 (76) 91 03/10/17 20:00 81 03/10/17 16:48 97.4 80 18 125/86 (99) 96 03/10/17 16:03 80 03/10/17 12:48 97.2 78 18 104/65 (78) 96 03/10/17 12:42 78 03/10/17 09:32 77 I/O 03/10/17 03/10/17 03/10/17 03/11/17 03/11/17 03/11/17 07:00 15:00 23:00 07:00 15:00 23:00 Intake Total 720 ml 340 ml 240 ml Output Total 1340 ml 500 ml 1280 ml 250 ml Balance -620 ml -160 ml -1280 ml 240 ml -250 ml Intake Oral 720 ml 240 ml 240 ml IV Total 100 ml Output Urine Total 1300 ml 500 ml 1250 ml 250 ml Drainage Total 40 ml 30 ml # Bowel Movements 1 0 Physical Exam GENERAL: SKIN: Warm and dry. HEAD: Normocephalic. EYES: No scleral icterus. No injection or drainage. NECK: Supple, trachea midline. No JVD or lymphadenopathy. CARDIOVASCULAR: Regular rate and rhythm without murmurs, gallops, or rubs. RESPIRATORY: Breath sounds equal bilaterally. No accessory muscle use. GASTROINTESTINAL: Abdomen soft, non-tender, nondistended. MUSCULOSKELETAL: No cyanosis, or edema. BACK: Nontender without obvious deformity. No CVA tenderness. Laboratory Laboratory Tests Test 03/11/17 07:49 White Blood Count 12.5 TH/MM3 Red Blood Count 2.78 MIL/MM3 Hemoglobin 8.8 GM/DL Hematocrit 25.9 % Mean Corpuscular Volume 93.2 FL Mean Corpuscular Hemoglobin 31.8 PG Mean Corpuscular Hemoglobin Concent 34.1 % Red Cell Distribution Width 16.6 % Platelet Count 123 TH/MM3 Mean Platelet Volume 6.3 FL Blood Urea Nitrogen 22 MG/DL Creatinine 0.57 MG/DL Random Glucose 73 MG/DL Calcium Level 8.3 MG/DL Sodium Level 140 MEQ/L Potassium Level 3.4 MEQ/L Chloride Level 99 MEQ/L Carbon Dioxide Level 38.6 MEQ/L Anion Gap 2 MEQ/L Estimat Glomerular Filtration Rate 108 ML/MIN Assessment and Plan Problem List: (1) PVD (peripheral vascular disease) ICD Codes: I73.9 - Peripheral vascular disease, unspecified (2) Anemia ICD Codes: D64.9 - Anemia, unspecified (3) Abdominal hematoma ICD Codes: S30.1XXA - Contusion of abdominal wall, initial encounter (4) Obesity ICD Codes: E66.9 - Obesity Status: Acute (5) SOB (shortness of breath) ICD Codes: R06.02 - SOB (shortness of breath) Status: Acute (6) Hx of coronary artery disease ICD Codes: Z86.79 - Personal history of other diseases of the circulatory system (7) Atrial fibrillation ICD Codes: I48.91 - Atrial fibrillation Status: Chronic (8) DM (diabetes mellitus) ICD Codes: E11.9 - DM (diabetes mellitus) Status: Chronic (9) Carotid stenosis ICD Codes: I65.29 - Occlusion and stenosis of unspecified carotid artery (10) History of four vessel coronary artery bypass graft ICD Codes: Z95.1 - Presence of aortocoronary bypass graft Assessment and Plan 1.) CAD - i could not image lyles, ow good flow to iw, lw, anterior wall with good wall motion but cant rule out lyles or lad disease therefore patient is moderate to high risk for noncardiac surgery, d/w Dr Cruz 2.) abdominal hematoma - rp bleed and groin hematoma ruled out, arterial injury and active bleeding from cath ruled out by angio 02/27/17, still requiring transfusion despite angiogram demonstrating no arterial injury or active bleeding suggesting bleeding is a local abdominal source, possibly due to lovenox injections, would explain why bleeding not tamponading as adipose tissue would lower resistance than rp or groin, still requiring transfusion and pressors but mental status good and u/o > 300/shift; d/w Dr Schafer 02/28/18 3.) PAF - in af rate controlled this am hr @ 85, ac held due to abdominal hematoma 4.) Carotid stenosis - surgery postponed due to abdominal hematoma, Dr Cruz following 5.) Anemia - hgb stable, creatinine baseline, continue to monitor hgb 6.) pod #5 hematoma evacuation - hemodynamically stable on minimal O2, extubated , hgb stable Problem Qualifiers (1) Atrial fibrillation: Qualified Codes: I48.0 - Paroxysmal atrial fibrillation Macho Juarez MD Mar 11, 2017 09:20
[2017-03-11] MEDS: PANTOPRAZOLE SODIUM 40 MG VIAL IV PUSH SCH (09:29)
[2017-03-11] MEDS: SPIRONOLACTONE 25 MG TAB PO SCH (09:29)
[2017-03-11] MEDS: AMIODARONE 200 MG TAB PO SCH (09:29)
[2017-03-11] MEDS: METOPROLOL TARTRATE 25 MG TAB PO SCH (09:30)
[2017-03-11] MEDS: POTASSIUM CHLORIDE 20 MEQ CONTROLLED RELEASE TAB PO SCH (09:30)
[2017-03-11] MEDS: FUROSEMIDE 40 MG TAB PO SCH (09:30)
[2017-03-11] MEDS: HYDROCORTISONE SOD SUCCINATE 100 MG VIAL IV SCH (09:31)
[2017-03-11] MEDS: ERTAPENEM INJ 1,000 MG in SODIUM CHLORIDE 0.9% INJ 100 ML IV SCH (09:31)
[2017-03-11] MEDS: HEPARIN SODIUM - SQ 10,000 UNITS/ML VIAL SQ SCH (09:31)
[2017-03-11] MEDS: SODIUM CHLORIDE 0.9% FLUSH 10 ML FLUSH IV FLUSH SCH (09:33)
[2017-03-11] MEDS: BUDESONIDE-FORMOTEROL 160/4.5 MCG INHALER INH SCH (09:44)
[2017-03-11] MEDS: TIOTROPIUM BROMIDE 18 MCG INH INH SCH (09:44)
[2017-03-11 12:00] VITALS: BP 110/65; PULSE 81; RESP 16; TEMP 97.5; O2SAT 93
--- NOTE | 2017-03-11 12:19 | HHI.DS ---
Discharge Summary Admission Date Feb 24, 2017 at 11:08 Discharge Date: Mar 11, 2017 Admitting Diagnosis Weakness, possible CVA vs TIA (1) Abdominal hematoma ICD Code: S30.1XXA - Contusion of abdominal wall, initial encounter (2) SOB (shortness of breath) ICD Code: R06.02 - SOB (shortness of breath) Status: Acute (3) Hx of coronary artery disease ICD Code: Z86.79 - Personal history of other diseases of the circulatory system (4) DM (diabetes mellitus) ICD Code: E11.9 - DM (diabetes mellitus) Status: Chronic (5) Carotid stenosis ICD Code: I65.29 - Occlusion and stenosis of unspecified carotid artery (6) Obesity ICD Code: E66.9 - Obesity Status: Acute (7) PVD (peripheral vascular disease) ICD Code: I73.9 - Peripheral vascular disease, unspecified (8) Anemia ICD Code: D64.9 - Anemia, unspecified (9) Atrial fibrillation ICD Code: I48.91 - Atrial fibrillation Status: Chronic (10) Weakness generalized ICD Code: R53.1 - Weakness Status: Acute (11) TIA (transient ischemic attack) ICD Code: G45.9 - Transient cerebral ischemic attack, unspecified Status: Acute Procedures See below Brief History - From Admission 61-year-old female with a past medical history significant for CAD status post CABG, atrial fibrillation, diabetes mellitus, polycystic kidney disease, CHF ( echo with EF of 55-60% in 2015), hypertension, hyperlipidemia and hypothyroidism presents to the emergency department complaining of dizziness and falling that began around 4 AM. She reports that when she stands she falls to the right side. She states she feels as though the room is spinning. She also had slurred speech with word finding difficulty before arriving to the emergency department per her daughter. No facial droop was noted. The patient reports she had right arm and leg weakness that is resolving. CBC/BMP: 03/11/17 0749 03/11/17 0749 Significant Findings Laboratory Tests Test 03/09/17 06:25 03/10/17 08:27 03/11/17 07:49 White Blood Count 11.5 TH/MM3 (4.0-11.0) 15.3 TH/MM3 (4.0-11.0) 12.5 TH/MM3 (4.0-11.0) Red Blood Count 2.86 MIL/MM3 (4.00-5.30) 2.83 MIL/MM3 (4.00-5.30) 2.78 MIL/MM3 (4.00-5.30) Hemoglobin 9.0 GM/DL (11.6-15.3) 9.1 GM/DL (11.6-15.3) 8.8 GM/DL (11.6-15.3) Hematocrit 26.3 % (35.0-46.0) 26.2 % (35.0-46.0) 25.9 % (35.0-46.0) Mean Platelet Volume 6.0 FL (7.0-11.0) 6.3 FL (7.0-11.0) Blood Urea Nitrogen 29 MG/DL (7-18) 25 MG/DL (7-18) 22 MG/DL (7-18) Potassium Level 3.3 MEQ/L (3.5-5.1) 3.4 MEQ/L (3.5-5.1) Carbon Dioxide Level 37.8 MEQ/L (21.0-32.0) 40.5 MEQ/L (21.0-32.0) 38.6 MEQ/L (21.0-32.0) Estimat Glomerular Filtration Rate 87 ML/MIN (>89) 88 ML/MIN (>89) Calcium Level 8.3 MG/DL (8.5-10.1) 8.3 MG/DL (8.5-10.1) Anion Gap 1 MEQ/L (5-15) 2 MEQ/L (5-15) Platelet Count 123 TH/MM3 (150-450) Random Glucose 73 MG/DL (74-106) PE at Discharge GENERAL: This is a well-nourished, orbitally obese well-developed patient, in no apparent distress. SKIN: No rashes, warm and dry HEAD: Atraumatic. Normocephalic. EYES: Pupils equal round and reactive. Extraocular motions intact. No scleral icterus. ENT: Nose without bleeding, or drainage, Airway patent. NECK: Trachea midline. Supple CARDIOVASCULAR: Regular rate and rhythm without murmurs, gallops, or rubs. RESPIRATORY: Fair air entry bilaterally. No wheezes, rales, or rhonchi. GASTROINTESTINAL: Abdomen soft, non-tender, nondistended. Positive bowel sounds MUSCULOSKELETAL: Extremities without clubbing, cyanosis, +2 edema. Pedal pulses appreciated NEUROLOGICAL: Awake and alert. Moves all extremity. Normal speech.no focal neurological deficit Transfer Summary Patient transferred from the critical care unit, transfer summary as follows: 61-year-old female with a past medical history significant for CAD status post CABG, atrial fibrillation, diabetes mellitus, polycystic kidney disease, CHF ( echo with EF of 55-60% in 2015), hypertension, hyperlipidemia and hypothyroidism presents to the emergency department complaining of dizziness and falling. Her CT of the neck show 70% occlusive disease off right carotid artery and she was planned to undergo right carotid endarterectomy. Further vascular procedures she underwent elective cardiac catheterization that shows patent vessels without significant obstructive disease. Shortly after procedure patient developed severe hypotension and tachycardia with systolic blood pressure at 60s and significant decrease in hemoglobin. She was taken emergently to CT of the abdomen/aorta runoff, the didn't show any dissection or aneurysm however shows large hematoma of abdominal wall. SUBJ 02/27: Remains in profound shock. ON Levophed 20, Jaron 100, Vasopressin 0.04. Received total of 8 units of PRBC, 4 units of FFP to pack units of platelets and 2 cryo. Hb after 5U PRBC was 8.7 at 3 am. Discussed with vascular surgery Dr. Oliva re possible surgical intervention. Patient is also on chronic steroids prednisone 5 mg twice a day (for RA trial per patient). I will give 200 mg IV hydrocortisone STAT followed by 100 mg every 8 hours. Also change Synthroid to 75 g IV daily. Pain improved with Dilaudid. Will place on PRN Dilaudid. UO 400 ml overnight. Check bladder pressure 02/28: Remains intubated critically ill FiO2 at 60%. Remains on Jaron-Synephrine at 30 mcg/m, vasopressin at 0.04 international units per minute. Receive 2 units of PRBC for hemoglobin of 7.6 overnight. Today 9.3. Creatinine has increased to 2.14. Urine output 575 mg in 24 hours. 03/01: Remains critically ill on vasopressin. Received 2 units of PRBC for hemoglobin 7.6. Urine output increased with diuretics. 1.5 L in 24 hours, creatinine stable to slightly improved. Given Lasix 80 mg IV 1 now with potassium replacement. Start weaning trials again 03/02: Extubated yesterday but required BiPAP overnight. Becomes hypoxic and short of breath when BiPAP was weaned. Hemodynamically improved remains on 0.01 vasopressin. Hb 10. Urine output 3 L with Lasix creatinine improved to 1.6. Significant positive fluid balance. Lasix increased 03/03: Was on BiPAP overnight currently on nonrebreather. Maintaining saturation about 90%. Chest x-ray showing worsening infiltrate new extensive right-sided infiltrates persistent left lower lobe consolidation. Zyvox restarted. Creatinine Endo has improved from 1.6-1.08, white count has improved from 17.3-13.7. Urine output 3.7 L in 24 hours 03/04: Requiring BiPAP at night but FiO2 requirement has been reduced to 40%. Breathing appears more comfortable hemoglobin stable at 9.1. Urine output 4.1 L in 24 hours creatinine has come down to 0.9. At this time will wean to DC amiodarone start by mouth amiodarone start by mouth metoprolol change linezolid to by mouth. Dr. Cruz planning on abdominal hematoma evacuation later this week. 03/05: Sitting up in bed on high flow nasal cannula at 50% FiO2. Breathing slightly improved. Sputum culture 03/02/17 growing Escherichia coli which is multidrug necessary. Discontinue Zosyn and start Invanz 1 g daily. DC Zyvox tomorrow. Continue IV Lasix given additional dose of Diamox 500 mg IV x1 03/06: taken to OR and evacuated > 2L blood from hematoma. remains intubated post -operatively. hgb stable. 03/07: remains intubated, sedated. no improvements. will attempt SBT today. 03/08: extubated and breathing comfortably. Conversant and protects airway well. Objective Vital Signs Date Time Temp Pulse Resp B/P (MAP) Pulse Ox O2 Delivery O2 Flow Rate FiO2 03/08/17 04:00 96.4 76 15 111/68 (82) 99 03/07/17 22:17 Nasal Cannula 3.00 03/07/17 16:00 40 Intake and Output 03/08/17 03/08/17 03/09/17 08:00 16:00 00:00 Intake Total 340 ml Output Total 1575 ml Balance -1235 ml Result Diagram: 03/08/17 0340 03/08/17 0340 [Image 1] Imaging Last 24 hours Impressions Chest X-Ray 02/26/17 1812 Signed Impressions: Service Date/Time: February 18:12 - CONCLUSION: Stable exam with cardiomegaly and left basilar atelectasis. Kiet Camarena Jr., MD Aorta CTA 02/26/17 0000 Signed Impressions: Service Date/Time: February 19:19 - CONCLUSION: 1. Large anterior abdominal wall hematoma. 2. No aortic dissection or aneurysm. 3. Changes involving the liver suggesting cirrhosis. 4. Cholelithiasis. 5. Bibasilar atelectasis. 6. Cardiomegaly. Kiet Camarena Jr., MD Objective Remarks GENERAL: Morbidly obese patient. Alert, calm. SKIN: Warm and dry. Ecchymosis lower abdomen HEAD: Normocephalic. NECK: Supple, trachea midline. CARDIOVASCULAR: NSR with occasional PVCs. RESPIRATORY: Clear, decreased bases. GASTROINTESTINAL: Abdomen large, soft, BS active. Ecchymosis lower abdomen MUSCULOSKELETAL: No cyanosis, limbs well perfused. NEURO EXAM: Conversant, moves 4 limbs. O X 3. A/P Assessment and Plan Neuro: TIA - Xanax 0.25 mg every 6 hours when necessary for anxiety - Dilaudid and oxycodone when necessary for pain control - Previously planned CEA postponed indefinitely - propofol as needed for goal RASS -2. CVA/Heme: Hemorrhagic shock-resolved Large anterior abdominal wall/rectus sheath hematoma post cardiac catheterization-resolved. Atrial fibrillation with RVR, no wNSR - Status post approximately 14 units PRBC, 4 units of FFP, 2 units of platelets , 2 cryo, including 2 units of PRBC - Monitor hemoglobin, coags - Anterior abdominal wall hematoma on CTA. No active leak - s/p abdominal wall hematoma evacuation 03/[address] Leatha Purcell to 40 q12. Resumed home aldactone 12.5 daily 03/04. continue diamox 500mg iv q8h. - At home On chronic prednisone 5 mg twice a day. Continue stress dose steroids reduced to 50 mg IV every 8 hours 03/03/17, start slow taper back down to daily prednisone dose. - Synthroid to IV 75 g daily-changed to home dose 200 g daily from 03/04/17 - NSR, On amiodarone 200 mg po daily form 03/04/17 after infusion was discontinued - Metoprolol at a lower dose 25 mg twice a day - Hold anticoagulation due to blood loss. Hold all antiplatelet therapy - 2D Echo Normal left ventricular size. LVEF 50-55%. Resp: Acute hypoxemic respiratory failure Acute COPD exacerbation Healthcare associated pneumonia/ MDR E Coli - Intubated by anesthesia for angiography, Extubated 03/01 but requiring BiPAP PRN and night. intubated for hematoma evacuation 03/05 - CXR resolving slowly improving infiltrates - DuoNeb every 4 hours and when necessary - Symbicort and Spiriva. Receiving steroids as hydrocortisone wean fio2 as tolerated for goal spo2 > 90% - start SBT today - nebs, vent bundle, hob elevated. - Extubated 03/07 GI: Transaminitis-improving - start TF. - Abdominal wall hematoma management as above - Elevated liver enzymes secondary to shock-now improving : Acute on chronic kidney failure - Acute kidney failure secondary to ATN, steadily improving - IV Lasix, Diamox as above, Aldactone 12.5 mg daily - Creatinine actually improving with diuresis ID Healthcare associated pneumonia with MDR E Coli - DC Zosyn, start Invanz 1 g daily 03/05/17 - DC Zyvox 03/06/17 - ID Dr Tobar Endo: - Continue Synthroid 200 g daily DVT GI prophylaxis - Teds/SCDs - start SQH 5000 q12h. - PPI Hospital Course As mentioned above patient continued to be followed for history of TIA carotid stenosis status post CEA status post hemorrhagic shock with large anterior abdominal hematoma status post cardiac catheterization, history of A. fib with RVR, coronary artery disease, hypothyroidism, respiratory failure, COPD exacerbation, H CAP, and [facility] Cardiology, [facility], government affairs specialist has been followed as well as hospitalist, patient stabilized, switch to taper prednisone, her blood pressure was on the lower side she is on isosorbide for chest pain by cardiology need to be followed up in rehabilitation. Patient definitely will benefit from inpatient rehabilitation which got accepted today. Patient seen and examined on the day of the discharge, she told me she slipped off the physical therapist when he was trying to get her up, central line and Ferguson catheter came out but she is doing well, no documented falling or hitting head. She will be going to [facility] today [id number] encounter performed with the patient on discharge day, as well as physical exam, summary of hospitalization course and postdischarge plan has been D/W the patient. D/W nurse D/W bilingual patient support caseworker. Discharge medications reviewed and printed and signed, post discharge follow up visit with PCP and other specialist as well as Brief hospital course and discharge summary has been placed. Pt Condition on Discharge: Stable Discharge Disposition: Rehab Inpatient Discharge Time: > 30 minutes Discharge Instructions DIET: Follow Instructions for: Heart Healthy Diet, Diabetic Diet Activities you can perform: Weight Bearing as Geraldo Other Activity Instructions: see PT OT notes dailt Follow up Referrals: PCP Follow-up - 2-3 Days Vascular Surgery - 4 Weeks with Chin Alcazar MD New Orders: BASIC METABOLIC PROF - 03/11/17 HEMOGLOBIN - 2-3 Days New Medications: Aspirin (Tgt Aspirin) 81 Mg Chw 81 MG CHEW DAILY for CAD for 30 Days, EA Furosemide (Furosemide) 40 Mg Tab 40 MG PO BID@ for CARD for 30 Days, TAB Potassium Chloride Microencaps (Potassium Chloride Microencaps) 20 Meq Tab 20 MEQ PO Q12HR for electr for 30 Days, TAB Prednisone (Prednisone) 5 Mg Tab 5 MG PO DAILY for resp for 7 Days, #7 TAB start on / [Budeson-Formot 160-4.5 Mcg Inh] () 60 PUFF AERO 2 PUFF INH Q12HR for breath for 30 Days Continued Medications: Albuterol 8.5 GM Inh (Proair Hfa 8.5 GM Inh) 90 Mcg/Act Aer 2 PUFF INH Q4-6H PRN for SHORTNESS OF BREATH, #1 INHALER 0 Refills 108 mcg/actuation Alprazolam (Xanax) 0.25 Mg Tab 0.25 MG PO Q6H PRN for ANXIETY, TAB 0 Refills Amiodarone (Amiodarone) 200 Mg Tab 200 MG PO DAILY for Regulate Heart Beat, #30 TAB 0 Refills Atorvastatin (Atorvastatin) 40 Mg Tab 40 MG PO HS for Cholesterol Management, #30 TAB 0 Refills Hydrocodone-Acetaminophen ([place]) 5-325 mg Tab 1 TAB PO Q6H PRN for PAIN, TAB 0 Refills Isosorbide Mononitrate ER (Isosorbide Mononitrate ER) 30 Mg Nancy 30 MG PO DAILY for Prevent Chest Pain, #30 TAB 0 Refills Levothyroxine (Synthroid) 100 Mcg Tab 200 MCG PO DAILY for Thyroid, #30 TAB 0 Refills Metoprolol Tartrate (Metoprolol Tartrate) 50 Mg Tab 50 MG PO BID, #60 TAB 0 Refills Omeprazole (Omeprazole) 20 Mg Tab 20 MG PO DAILY, #30 TAB 0 Refills Sacubitril-Valsartan (Entresto) 97-103 Mg Tab 2 TAB PO DAILY for Heart Failure, #30 TAB 0 Refills Spironolactone (Spironolactone) 25 Mg Tab 12.5 MG PO DAILY, #15 TAB 0 Refills Venlafaxine ER 24 HR (Venlafaxine ER 24 HR) 75 Mg Tab 75 MG PO DAILY, #30 TAB 0 Refills Discontinued Medications: Bumetanide (Bumetanide) 1 Mg Tab 1 MG PO DAILY, #30 TAB 0 Refills Prednisone (Prednisone) 5 Mg Tab 5 MG PO BID, TAB 0 Refills Warfarin (Warfarin) 5 Mg Tab 5.5 MG PO DAILY for Blood Clot Prevention, #30 TAB 0 Refills Kings Ngo MD Mar 11, 2017 12:19
[2017-03-13] MEDS ORDERED: predniSONE 5 MG TAB PO SCH (09:00)
== END 2017-03-11 15:32 | DRG 981 ==
LOC: NEPE 04:37 → NEDA 08:10 → NEDH 12:14 → NEDA 12:50 → NEPFCDU 16:17 → OBSVTOIN 02-24 11:08 → N05B 02-26 14:33 → HCIS 02-26 14:40 → HCVI 02-26 17:34 → N03A 03-05 23:17 → N05B 03-09 00:38
PROVIDERS: ADMIT Family Medicine; ATTEND Hospitalist
PROC: B2111ZZ Fluoroscopy of Multiple Coronary Arteries using Low Osmolar Contrast (ICD-10-PCS; 2017-02-26)
PROC: B2151ZZ Fluoroscopy of Left Heart using Low Osmolar Contrast (ICD-10-PCS; 2017-02-26)
PROC: B2131ZZ Fluoroscopy of Multiple Coronary Artery Bypass Grafts using Low Osmolar Contrast (ICD-10-PCS; 2017-02-26)
PROC: B3121ZZ Fluoroscopy of Left Subclavian Artery using Low Osmolar Contrast (ICD-10-PCS; 2017-02-26)
PROC: 05HN33Z Insertion of Infusion Device into Left Internal Jugular Vein, Percutaneous Approach (ICD-10-PCS; 2017-02-26)
PROC: 30233N1 Transfusion of Nonautologous Red Blood Cells into Peripheral Vein, Percutaneous Approach (ICD-10-PCS; 2017-02-26)
PROC: 30233K1 Transfusion of Nonautologous Frozen Plasma into Peripheral Vein, Percutaneous Approach (ICD-10-PCS; 2017-02-26)
PROC: 30233R1 Transfusion of Nonautologous Platelets into Peripheral Vein, Percutaneous Approach (ICD-10-PCS; 2017-02-26)
PROC: 4A023N8 Measurement of Cardiac Sampling and Pressure, Bilateral, Percutaneous Approach (ICD-10-PCS; principal; 2017-02-26 13:45)
PROC: 5A1945Z Respiratory Ventilation, 24-96 Consecutive Hours (ICD-10-PCS; 2017-02-27)
PROC: 0BH17EZ Insertion of Endotracheal Airway into Trachea, Via Natural or Artificial Opening (ICD-10-PCS; 2017-02-27)
PROC: 5A09357 Assistance with Respiratory Ventilation, Less than 24 Consecutive Hours, Continuous Positive Airway Pressure (ICD-10-PCS; 2017-03-05)
PROC: 0W9F00Z Drainage of Abdominal Wall with Drainage Device, Open Approach (ICD-10-PCS; 2017-03-06)
DX: I65.21 Occlusion and stenosis of right carotid artery (principal); J96.01 Acute respiratory failure with hypoxia; N17.0 Acute kidney failure with tubular necrosis; R57.8 Other shock; J15.5 Pneumonia due to Escherichia coli; J44.0 Chronic obstructive pulmonary disease with (acute) lower respiratory infection; L76.32 Postprocedural hematoma of skin and subcutaneous tissue following other procedure; I13.0 Hypertensive heart and chronic kidney disease with heart failure and stage 1 through stage 4 chronic kidney disease, or unspecified chronic kidney disease; D62 Acute posthemorrhagic anemia; I25.810 Atherosclerosis of coronary artery bypass graft(s) without angina pectoris; Z68.43 Body mass index [BMI] 50.0-59.9, adult; Q61.3 Polycystic kidney, unspecified; N17.9 Acute kidney failure, unspecified; J44.1 Chronic obstructive pulmonary disease with (acute) exacerbation; E87.3 Alkalosis; I25.110 Atherosclerotic heart disease of native coronary artery with unstable angina pectoris; E66.01 Morbid (severe) obesity due to excess calories; I50.9 Heart failure, unspecified; I48.2 Chronic atrial fibrillation; E86.0 Dehydration; E03.9 Hypothyroidism, unspecified; R42 Dizziness and giddiness; Y84.0 Cardiac catheterization as the cause of abnormal reaction of the patient, or of later complication, without mention of misadventure at the time of the procedure; Y95 Nosocomial condition; I95.81 Postprocedural hypotension; I48.0 Paroxysmal atrial fibrillation; F41.9 Anxiety disorder, unspecified; E11.22 Type 2 diabetes mellitus with diabetic chronic kidney disease; E11.51 Type 2 diabetes mellitus with diabetic peripheral angiopathy without gangrene; E78.5 Hyperlipidemia, unspecified; E87.6 Hypokalemia; I25.2 Old myocardial infarction; K21.9 Gastro-esophageal reflux disease without esophagitis; M06.9 Rheumatoid arthritis, unspecified; N18.9 Chronic kidney disease, unspecified; R74.0 Nonspecific elevation of levels of transaminase and lactic acid dehydrogenase [LDH]; Z95.810 Presence of automatic (implantable) cardiac defibrillator; Z99.81 Dependence on supplemental oxygen; Z79.52 Long term (current) use of systemic steroids; Z88.1 Allergy status to other antibiotic agents
CPT/HCPCS: 36246; 36248; 36430; 36556; 36600; 70450; 70496; 70498; 71045; 71275; 74174; 75716; 75774; 76937; 80048; 80053; 80061; 81001; 82550; 82805; 82810; 82948; 83036; 83690; 83735; 83880; 84100; 84132; 84155; 84439; 84443; 84480; 84484; 85007; 85014; 85018; 85025; 85027; 85384; 85610; 85730; 86850; 86900; 86901; 86920; 86927; 86965; 87015; 87040; 87070; 87077; 87086; 87102; 87116; 87186; 87205; 87206; 93005; 93306; 93308; 93461; 94002; 94003; 94150; 94640; 94664; 94667; 94668; 96361; 96372; 96374; 99152; 99153; J1265; C1760; C1769; C1887; C1893; C1894; C9113; G0269; G0378; G8987-GP; G8988-GP; J0171; J0282; J0461; J0610; J1120; J1160; J1170; J1335; J1644; J1650; J1720; J1815; J1940; J2020; J2250; J2270; J2370; J2405; J2543; J3010; J3475; J3480; J7030; J7040; J7050; J7060; J7070; J7512; P9016; P9017; P9035; P9045; P9047; Q9967

== ENCOUNTER 2017-03-18 15:47 | Inpatient (IN) | payer MEDICARE, MEDICAID ==
[~2017-03-18 15:47] MED LIST changes: -ALBUAER3 INH; +ALPR.25 PO; +ASPI81 CHEW; -BUME1TAB PO; +Budeson-Formot 160-4.5 Mcg Inh INH; +FURO40TA PO; +POTA20TA5 PO; +SACU1TAB4 PO; -WARF-23 PO
--- NOTE | 2017-03-18 15:53 | HHI.HP ---
[facility] Service [facility] Physician No Primary Care Physician Admission Diagnosis Diagnoses: (1) Atrial fibrillation (2) Carotid stenosis (3) Hypothyroidism (4) HTN (hypertension) (5) Polycystic kidney disease (6) Abdominal hematoma (7) Hx of coronary artery disease (8) CHF (congestive heart failure) (9) PVD (peripheral vascular disease) (10) Obesity Chief Complaint: A.fib Travel History International Travel<30 Days: No Contact w/Intl Traveler <30 Da: No History of Present Illness This is a 61-year-old female with past medical history significant for HTN, CHF, A. fib s/p ablations x4, CAD s/p CABG x4, carotid artery stenosis , TIA, HLD, COPD on home O2, CKD, hypothyroidism and obesity. Recent hospitalization on 02/26 with complaints of dizziness and falling on her right side. During that admission patient was seen by neurology who determined she was experiencing vertigo and recommended follow-up with ENT. She underwent carotid artery ultrasound which found 70% stenosis of the proximal ICA and 45-50 % stenosis of the left ICA. Vascular surgery was consulted during her admission with plans of right carotid endarterectomy. Prior to endarterectomy patient underwent cardiac catheterization which revealed severe two-vessel coronary artery disease in the right dominant system. Recommendations by banquet manager made to continue medical management of coronary artery disease. Her hospital stay was complicated secondary to hemorrhagic shock with severe hypotension and tachycardia following cardiac cath. CT scan of her abdomen revealed a large hematoma of the abdominal wall requiring evacuation of greater than 2 L of blood. Patient also received 14 units of PRBCs, 4 units of FFP, 2 units of platelets, and 2 units of cryo. She also developed hospital-acquired pneumonia/MDR E. coli for which she was followed by infectious disease and treated with IV Ertamenem. She was discharged to [facility] rehabilitation [facility]uro following that hospital stay. She was admitted to inpatient rehab on 03/11. During her stay at [facility] she was followed by medical team. Participation with rehab was challenged secondary to symptomatic hypotension. Patient with history of CHF, her Lasix have been held along with beta blockers secondary to hypotension. Cardiology was consulted during her stay at [facility], no note or recommendations found in EMR. Today patient developed heart palpitations during physical therapy along with hypotension. Patient was transferred back to her room and a stat EKG was performed which revealed heart rate 126, a flutter with rapid ventricular response. Attempt was made to contact banquet manager, Jonathan called on floor. Patient was placed on monitor with heart rate in the 140s, asymptomatic. Patient denies any shortness of breath or chest pains, or palpitations. She was administered 0.5 mg of IV digoxin at bedside by Jonathan nurse. Blood pressure stable, heart rate only dropped to the 130s. Discussed with rehab team , patient will be discharged from [facility] and admitted to inpatient side with telemetry monitoring. Review of Systems Except as stated in HPI: all other systems reviewed are Neg Past Family Social History Past Medical History CAD s/p CABG Carotid artery stenosis TIA A. fib s/p ablation Hypertension Hyperlipidemia CHF COPD on home oxygen Polycystic kidney disease Hypothyroidism Obesity Past Surgical History CABG x 4 2007 Ablation x 4 AICD placement 2007 Tonsillectomy Allergies: Coded Allergies: azithromycin (Unverified Allergy, Severe, 02/04/17) CAN NOT TAKE DUE TO STUDY MED cyclosporine (Unverified Allergy, Severe, 02/04/17) CAN NOT TAKE DUE TO STUDY MEDS erythromycin base (Unverified Allergy, Severe, 02/04/17) CAN NOT TAKE DUE TO STUDY MEDS vancomycin (Unverified Allergy, Severe, FACIAL SWELLING, 02/04/17) levofloxacin (Unverified Allergy, Mild, ITCHING, 02/04/17) MRI PRECAUTION (Verified Adverse Reaction, Severe, PACEMAKER/ DEFRIBRILLATOR, 02/22/17) [employer] SCIENTIFIC PACER/DEFIBRILLATOR/JLA 02/22/17 Family History Mother: Cancer Father: [place] Social History Tobacco use: Denies Alcohol use: Denies Illicit drug use: Denies Physical Exam Physical Exam GENERAL: This is a well-nourished, well-developed morbidly obese female patient, in NAD. SKIN: Cool and dry. Lower abdominal incision well approximated with dry and intact patricia with minimal surrounding redness, minimal amount of serous drainage noted on dressing, Bilateral thigh and flank edema +2. Bilateral upper extremity discolorations and scattered ecchymotic areas. HEAD: Atraumatic. Normocephalic. No scalp or temporal tenderness. EYES: Pupils equal round reactive, extraocular motions intact. No scleral icterus. No injection or drainage. ENT: Nose without bleeding or purulent drainage. Airway patent. NECK: Trachea midline. No JVD, supple. CARDIOVASCULAR: Fast and irregular rate and rhythm, no murmurs or rubs appreciated RESPIRATORY: Nonlabored. Diminished breath sounds in bases, auscultation limited secondary to body habitus. GASTROINTESTINAL: Abdomen soft, obese non-tender, nondistended. Lower abdominal surgical incision with dressing as noted above. Normal active bowel sounds in all quadrants. MUSCULOSKELETAL: Extremities without clubbing or cyanosis. LLE edema +1, RLE + 3 edema, patient unable to lift right leg off bed due to edema. Bilateral upper extremity +1 edema. NEUROLOGICAL: Awake and alert and oriented. Cranial nerves II through XII grossly intact. Moves upper and lower extremities. No focal neurologic finding. Normal speech, no facial droop. Caprini VTE Risk Assessment Caprini VTE Risk Assessment: Mod/High Risk (score >= 2) Caprini Risk Assessment Model Point Value = 1 Point Value = 2 Point Value = 3 Point Value = 5 Age 41-60 Minor surgery BMI > 25 kg/m2 Swollen legs Varicose veins or History of unexplained or recurrent spontaneous Oral contraceptives or hormone replacement Sepsis (< 1 month) Serious lung disease, including pneumonia (< 1 month) Abnormal pulmonary function Acute myocardial infarction Congestive heart failure (< 1 month) History of inflammatory bowel disease Medical patient at bed rest Age 61-74 Arthroscopic surgery Major open surgery (> 45 min) Laparoscopic surgery (> 45 min) Malignancy Confined to bed (> 72 hours) Immobilizing plaster cast Central venous access Age >= 75 History of VTE Family history of VTE Factor V Leiden Prothrombin [id number] Lupus anticoagulant Anticardiolipin antibodies Elevated serum homocysteine Heparin-induced thrombocytopenia Other congenital or acquired thrombophilia Stroke (< 1 month) Elective arthroplasty Hip, pelvis, or leg fracture Acute spinal cord injury (< 1 month) Prophylaxis Regimen Total Risk Factor Score Risk Level Prophylaxis Regimen 0-1 Low Early ambulation 2 Moderate Order ONE of the following: *Sequential Compression Device (SCD) *Heparin 5000 units SQ BID 3-4 Higher Order ONE of the following medications: *Heparin 5000 units SQ TID *Enoxaparin/Lovenox 40 mg SQ daily (WT < 150 kg, CrCl > 30 mL/min) *Enoxaparin/Lovenox 30 mg SQ daily (WT < 150 kg, CrCl > 10-29 mL/min) *Enoxaparin/Lovenox 30 mg SQ BID (WT < 150 kg, CrCl > 30 mL/min) AND/OR *Sequential Compression Device (SCD) 5 or more Highest Order ONE of the following medications: *Heparin 5000 units SQ TID (Preferred with Epidurals) *Enoxaparin/Lovenox 40 mg SQ daily (WT < 150 kg, CrCl > 30 mL/min) *Enoxaparin/Lovenox 30 mg SQ daily (WT < 150 kg, CrCl > 10-29 mL/min) *Enoxaparin/Lovenox 30 mg SQ BID (WT < 150 kg, CrCl > 30 mL/min) AND *Sequential Compression Device (SCD) Assessment and Plan Assessment and Plan This is a 61-year-old female with past medical history significant for HTN, CHF, A. fib s/p ablations x4, CAD s/p CABG x4, carotid artery stenosis , TIA, HLD, COPD on home O2, CKD, hypothyroidism and obesity. Recent hospitalization on with suspected TIA. Plan for endarterectomy during that hospital stay however underwent cardiac cath prior to this. Postcatheterization complications due to anterior wall/rectus sheath hematoma. Patient requiring multiple blood products due to hemorrhagic shock, also recently treated for pneumonia. Was admitted to [facility] however with history of A. fib developed A. fib with RVR during physical therapy today. Patient discharged from rehab center and admitted back to inpatient for treatment of heart rate. A. fib with RVR -Patient with a history of A. fib s/p ablations 4 along with AICD/pacemaker placement. -Has not been receiving beta luz maria secondary to hypotension, HR in the 120s with complaints of palpitations during physical therapy while in rehab. -Patient was administered 0.5 mg of digoxin IV -Transferred from [facility] to inpatient cardiac unit for closer monitoring and management of heart rate -EKG done today at 2:36 reviewed, heart rate 128 with atrial flutter/ tachycardia with rapid ventricular response. -We will check serial troponin along with serial EKGs -CBC, CMP, APTT/PT pending -Consult cardiology, appreciate recommendations -Check chest x-ray as well as recheck 2D echo -Continue patient's amiodarone 200 mg daily -Suspect that uncontrolled A. fib may also be secondary to recent increase in levothyroxine from 200 MCG's to 225 MCG. Of note patient does report some noncompliance at home prior to coming to the hospital. -Coumadin previously placed on hold secondary to post heart catheterization hemorrhagic shock. Will need recommendations to resume anticoagulation from cardiology. CAD s/p CABG x 4 2006 Carotid artery stenosis -Heart rate elevated, will continue to follow serial EKG and troponin -Heart cath done on 02/26/17 revealed severe two-vessel coronary artery disease in the right dominant system, recommendations to continue medical management. -Continue statin and low-dose aspirin. -Will need to follow-up as outpatient for previously planned right carotid endarterectomy. CHF, exacerbated Anasarca/ general edema HTN -2D echo completed on 02/23/17 with EF 50-55%, normal left ventricular size, trace to mild MVR, and TVR, estimated pulmonary artery pressure 35.8. -2D echo completed on 02/26/17 following heart catheterization with trace pericardial effusion, no tamponade, decreased LV systolic function -Will recheck 2D echo secondary to increase in heart rate and uncontrolled A. fib. - For the moment will continue spironolactone 12.5 mg daily, and Lasix 20 mg twice a day along with KCl 20meq BID - Cardiology consult placed. -Will also check bilateral lower extremity ultrasound secondary to edema to rule out DVT COPD on chronic oxygen -Will check chest x-ray -Continue Symbicort and Spiriva - Duo nebs as needed - Monitor respiratory status Hypothyroidism -We will continue levothyroxine 200 MCG's (dose recently increased, possible cause of elevated heart rate) DVT prophylaxis -Subcu heparin Physician Certification 2 Midnight Certification Type: Admission for Inpatient Services Order for Inpatient Services The services are ordered in accordance with Medicare regulations or non- Medicare payer requirements, as applicable. In the case of services not specified as inpatient-only, they are appropriately provided as inpatient services in accordance with the 2-midnight benchmark. Estimated LOS (days): 3 days is the estimated time the patient will need to remain in the hospital, assuming treatment plan goals are met and no additional complications. Post-Hospital Plan: Inpatient Rehab Alejandrina Sarmiento Mar 18, 2017 15:53
[2017-03-18] MEDS ORDERED: NALOXONE HCL 0.4 MG/ML AMP IV PUSH PRN (16:00)
[2017-03-18] MEDS ORDERED: SODIUM CHLORIDE 0.9% FLUSH 10 ML FLUSH IV FLUSH PRN (16:00)
[2017-03-18 16:30] VITALS: BP 121/85; PULSE 99; RESP 16; TEMP 98; O2SAT 97
--- NOTE | 2017-03-18 16:47 | RADRPT ---
EXAM DATE/TIME: 03/18/2017 16:06 [facility] COMPARISON: CHEST SINGLE AP, March 14, 2017, 9:27. INDICATIONS : Sudden onset of difficulty breathing. MEDICAL HISTORY : Myocardial infarction. Chronic obstructive pulmonary disease. Thyroid disease. Cerebrovascular accide nt. Syncope. Coronary artery disease. Hypercholesterolemia. Afib. Renal failure. Osteoarthritis. Maria Elena betes. Depression. Anxiety. Measles. Blood transfusion. MRSA. SURGICAL HISTORY : Tonsillectomy.CABG Tubal ligation.Cardiac ablation. Internal defibrillator. Abdominal hematoma evacua tion. ENCOUNTER: Initial ACUITY: 1 day PAIN SCORE: 0/10 LOCATION: Bilateral chest FINDINGS: Pacemaker device is noted with control pack over the left chest. Stable moderate cardiomegaly. Vascul ar congestion and basilar alveolar opacities, left worse than right. Little or no change from prior e xam. CONCLUSION: Grossly stable CHF Savage Aranda MD on March 18, 2017 at 16:44 Board Certified Radiologist. This report was verified electronically.
[2017-03-18] MEDS ORDERED: PILL SPLITTER OTHER PRN (17:00)
--- NOTE | 2017-03-18 17:22 | RADRPT ---
EXAM DATE/TIME: 03/18/2017 16:28 [facility] COMPARISON: US LEG BILATERAL VENOUS DOPPLER, March 11, 2017, 17:41. INDICATIONS : Bilateral leg swelling. MEDICAL HISTORY : Myocardial infarction. Chronic obstructive pulmonary disease. Thyroid disease. Cerebrovascular accide nt. Syncope. Coronary artery disease. Hypercholesterolemia. Afib. . Renal failure. Osteoarth ritis. Diabetes. Depression. Anxiety. Measles. Blood transfusion. MRSA. SURGICAL HISTORY : Tonsillectomy.CABG. Tubal ligation. Cardiac ablation. Internal defibrillator. Abdominal hematoma evac uation. ENCOUNTER: Subsequent ACUITY: 1 month PAIN SCORE: 6/10 LOCATION: Bilateral legs. TECHNIQUE: Venous ultrasound of the left and right leg was performed from the inguinal ligament to the proximal calf. Real-time, color Doppler and spectral tracing, compression and augmentation techniques were us ed. FINDINGS: RIGHT LEG: There is normal compressibility of the deep venous system from the inguinal region to the proximal ca lf. No echogenic clot is seen in the lumen of the common femoral, femoral, popliteal, and posterior tibial veins. There is a normal response of the venous system to proximal and distal augmentation an d respiration. LEFT LEG: There is normal compressibility of the deep venous system from the inguinal region to the proximal ca lf. No echogenic clot is seen in the lumen of the common femoral, femoral, popliteal, and posterior tibial veins. There is a normal response of the venous system to proximal and distal augmentation an d respiration. Left greater saphenous vein removed from bypass CONCLUSION: Negative for deep venous thrombosis. Bilateral lower extremity edema. Gadiel Wan MD FACR on March 18, 2017 at 17:19 Board Certified Radiologist. This report was verified electronically.
[2017-03-18] MEDS: FUROSEMIDE 20 MG TAB PO SCH (18:18)
[2017-03-18 18:45] LABS: AUTOMATED NEUTROPHIL # 6.7 TH/MM3 (1.8-7.7); BASOPHIL % 0.5 % (0.0-2.0); EOSINOPHIL # 0.1 TH/MM3 (0-0.4); EOSINOPHIL % 1.2 % (0.0-4.0); HEMATOCRIT 27.9 % (35.0-46.0); HEMOGLOBIN 9.4 GM/DL (11.6-15.3); LYMPH % 7.2 % (9.0-44.0); LYMPHOCYTE # 0.6 TH/MM3 (1.0-4.8); MEAN CELL VOLUME 97.6 FL (80.0-100.0); MEAN CORPUSCULAR HEMOGLOBIN 32.8 PG (27.0-34.0); MEAN CORPUSCULAR HGB CONC 33.6 % (32.0-36.0); MEAN PLATELET VOLUME 6.5 FL (7.0-11.0); MONOCYTE # 0.6 TH/MM3 (0-0.9); NEUT % 84.1 % (16.0-70.0); PLATELET COUNT 164 TH/MM3 (150-450); RED BLOOD COUNT 2.86 MIL/MM3 (4.00-5.30); RED CELL DISTRIBUTION WIDTH 23.6 % (11.6-17.2); WHITE BLOOD COUNT 7.9 TH/MM3 (4.0-11.0)
--- NOTE | 2017-03-18 18:56 | ECHRPT ---
Indication: CONCLUSIONS Technically difficult study. The left ventricular systolic function is mildly reduced with an estimated ejection fraction in the range of 45- 50%. Mild concentric left ventricular hypertrophy. Trace mitral valve regurgitation. There is mild tricuspid valve regurgitation. There is a trace pericardial effusion present. A moderate left sided pleural effusion is noted. BP: / HR: Rhythm: MEASUREMENTS (Male / Female) Normal Values Technical Quality:Technically difficult study 2D ECHO LV Diastolic Diameter PLAX 3.8 cm 4.2 - 5.9 / 3.9 - 5.3 cm IVS Diastolic Thickness 1.2 cm 0.6 - 1.0 / 0.6 - 0.9 cm LVPW Diastolic Thickness 0.9 cm 0.6 - 1.0 / 0.6 - 0.9 cm LV Relative Wall Thickness 0.5 LA Systolic Diameter LX 3.1 cm 3.0 - 4.0 / 2.7 - 3.8 cm DOPPLER Mitral E Point Velocity 56.8 cm/s Mitral A Point Velocity 38.5 cm/s Mitral E to A Ratio 1.5 TR Peak Velocity 300.0 cm/s TR Peak Gradient 36.0 mmHg FINDINGS LEFT VENTRICLE Normal left ventricular size Mild concentric left ventricular hypertrophy. The left ventricular systolic function is mildly reduced with an estimated ejection fraction in the range of 45- 50%. There was limited left ventricular wall motion assessment due to poor endocardial visualization. RIGHT VENTRICLE A pacemaker wire is noted. LEFT ATRIUM The left atrial size is normal. RIGHT ATRIUM The right atrial size is normal. ATRIAL SEPTUM Normal atrial septal thickness. AORTA The aortic root and proximal ascending aorta are normal in size on limited imaging. MITRAL VALVE Grossly normal mitral valve. No mitral valve stenosis. Trace mitral valve regurgitation. AORTIC VALVE No aortic valve regurgitation. No aortic valve stenosis. TRICUSPID VALVE Grossly normal tricuspid valve. There is mild tricuspid valve regurgitation. There is estimated mild pulmonary hypertension present (46 mmHg). PULMONARY VALVE The pulmonary valve is not well visualized. VESSELS The inferior vena cava is normal in size. PERICARDIUM There is a trace pericardial effusion present. A moderate left sided pleural effusion is noted. Jose Davis DO (Electronically Signed) Final Date:18 March 2017 18:55
[2017-03-18 19:00] VITALS: BP 117/84; PULSE 79; TEMP 98.1; O2SAT 100
[2017-03-18 19:02] LABS: INTERNATIONAL NORMALIZED RATIO 1.1 RATIO
[2017-03-18 19:09] LABS: ALBUMIN 2.8 GM/DL (3.4-5.0); AST (GOT) 26 U/L (15-37); BICARBONATE 32.1 MEQ/L (21.0-32.0); BLOOD UREA NITROGEN 26 MG/DL (7-18); CALCIUM 8.7 MG/DL (8.5-10.1); CHLORIDE 101 MEQ/L (98-107); GLOMERULAR FILTRATION RATE 64 ML/MIN (>89); GLUCOSE,RANDOM 69 MG/DL (74-106); SODIUM (NA) 140 MEQ/L (136-145)
[2017-03-18 19:10] LABS: ALT (GPT) 14 U/L (10-53)
[2017-03-18 19:14] LABS: ALKALINE PHOSPHATASE 118 U/L (45-117); TOTAL BILIRUBIN ADULT 1.6 MG/DL (0.2-1.0); TOTAL PROTEIN 6.7 GM/DL (6.4-8.2); TROPONIN I LESS THAN 0.02 NG/ML (0.02-0.05)
[2017-03-18 20:00] VITALS: PULSE 72
[2017-03-18] MEDS: HEPARIN SODIUM - SQ 10,000 UNITS/ML VIAL SQ SCH (20:43)
[2017-03-18] MEDS: POTASSIUM CHLORIDE 20 MEQ CONTROLLED RELEASE TAB PO SCH (20:43)
[2017-03-18] MEDS: SODIUM CHLORIDE 0.9% FLUSH 10 ML FLUSH IV FLUSH SCH (20:43)
[2017-03-18] MEDS: BUDESONIDE-FORMOTEROL 160/4.5 MCG INHALER INH SCH ×2 (20:43→20:54)
[2017-03-18] MEDS: ATORVASTATIN 40 MG TAB PO SCH (20:43)
[2017-03-18] MEDS: ACETAMINOPHEN/HYDROcodone 325 MG/5 MG TAB PO PRN (20:53)
[2017-03-18 21:00] VITALS: PULSE 78
[2017-03-18 22:00] VITALS: PULSE 76
[2017-03-18 22:16] LABS: TROPONIN I LESS THAN 0.02 NG/ML (0.02-0.05)
[2017-03-18 23:00] VITALS: PULSE 74
--- NOTE | 2017-03-18 23:02 | HHI.PR ---
Subjective Remarks Feeling better Objective Vital Signs Date Time Temp Pulse Resp B/P (MAP) Pulse Ox O2 Delivery O2 Flow Rate FiO2 03/18/17 19:00 98.1 79 117/84 (95) 100 03/18/17 16:30 98.0 99 16 121/85 (97) 97 Result Diagram: 03/18/17181103/18/171811 Imaging Alert, fully oriented, in bed Lungs: ventilated Heart: S1, S2 regular, no gallop Abdomen: soft, no mass Ext: edema +1 Last Impressions Lower Extremity Ultrasound 03/18/17 0000 Signed Impressions: Service Date/Time: Saturday, March 18, 2017 16:28 - CONCLUSION: Negative for deep venous thrombosis. Bilateral lower extremity edema. Gadiel Wan MD FACR Chest X-Ray 03/18/17 0000 Signed Impressions: Service Date/Time: Saturday, March 18, 2017 16:06 - CONCLUSION: Grossly stable CHF Savage Aranda MD Current Medications Medications (Trade) Dose Ordered Sig/Alexa Route Start Time Stop Time Status Last Admin (NS Flush) 2 ml UNSCH PRN IV FLUSH 03/18/17 16:00 (NS Flush) 2 ml BID IV FLUSH 03/18/17 21:00 03/18/17 20:43 (Narcan Inj) 0.4 mg UNSCH PRN IV PUSH 03/18/17 16:00 (Heparin Inj) 5,000 units Q8HR SQ 03/18/17 22:00 03/18/17 20:43 (Cordarone) 200 mg DAILY PO 03/19/17 09:00 (Aspirin Chew) 81 mg DAILY CHEW 03/19/17 09:00 (Lipitor) 40 mg HS PO 03/18/17 21:00 03/18/17 20:43 ([place] 5-325 Mg) 1 tab Q6H PRN PO 03/18/17 17:00 03/18/17 20:53 (Synthroid) 200 mcg DAILY@0600 PO 03/19/17 06:00 (KCl) 20 meq Q12HR PO 03/18/17 21:00 03/18/17 20:43 (Deltasone) 5 mg DAILY PO 03/19/17 09:00 (Aldactone) 12.5 mg DAILY PO 03/19/17 09:00 (Effexor Xr) 75 mg DAILY PO 03/19/17 09:00 (Symbicort 160-4.5 Mcg Inh) 2 puff Q12HR INH 03/18/17 21:00 03/18/17 20:54 (Lasix) 20 mg BID@,18 PO 03/18/17 18:00 03/18/17 18:18 (Pill Splitter) 1 ea UNSCH PRN OTHER 03/18/17 17:00 Assessment and Plan Problem List: (1) Atrial fibrillation ICD Codes: I48.91 - Atrial fibrillation Status: Chronic Plan: Patient was transferred to CICU due to atrial fibrillation with FVR HR control Back in regular rhythm Doing better Will continue on current management If HR cannot be controlled, AV node modification and pacing should be considered in the future Case discussed with patient (2) HTN (hypertension) ICD Codes: I10 - Essential (primary) hypertension Status: Chronic Plan: SBP 121 Lenin Bryson MD Mar 18, 2017 23:02
[2017-03-19] VITALS (24 sets, daily range): BP systolic 91–120; BP diastolic 39–74; PULSE 63–92; RESP 19–20; TEMP 97.2–98; O2SAT 99–100
[2017-03-19] MEDS: ACETAMINOPHEN/HYDROcodone 325 MG/5 MG TAB PO PRN ×2 (03:45→20:11)
[2017-03-19] MEDS: LEVOTHYROXINE SODIUM 100 MCG TAB PO SCH (05:23)
[2017-03-19] MEDS: HEPARIN SODIUM - SQ 10,000 UNITS/ML VIAL SQ SCH ×3 (05:23→20:11)
[2017-03-19 05:54] LABS: AUTOMATED NEUTROPHIL # 6.2 TH/MM3 (1.8-7.7); BASOPHIL % 0.3 % (0.0-2.0); EOSINOPHIL # 0.1 TH/MM3 (0-0.4); EOSINOPHIL % 1.6 % (0.0-4.0); HEMATOCRIT 27.7 % (35.0-46.0); HEMOGLOBIN 9.1 GM/DL (11.6-15.3); LYMPH % 8.4 % (9.0-44.0); LYMPHOCYTE # 0.6 TH/MM3 (1.0-4.8); MEAN CELL VOLUME 97.7 FL (80.0-100.0); MEAN CORPUSCULAR HEMOGLOBIN 32.2 PG (27.0-34.0); MEAN CORPUSCULAR HGB CONC 32.9 % (32.0-36.0); MEAN PLATELET VOLUME 6.6 FL (7.0-11.0); MONO % 7.1 % (0.0-8.0); MONOCYTE # 0.5 TH/MM3 (0-0.9); NEUT % 82.6 % (16.0-70.0); PLATELET COUNT 173 TH/MM3 (150-450); RED BLOOD COUNT 2.84 MIL/MM3 (4.00-5.30); RED CELL DISTRIBUTION WIDTH 23.2 % (11.6-17.2); WHITE BLOOD COUNT 7.5 TH/MM3 (4.0-11.0)
[2017-03-19 06:01] LABS: BICARBONATE 36.4 MEQ/L (21.0-32.0); CALCIUM 8.2 MG/DL (8.5-10.1); CREATININE 1.07 MG/DL (0.50-1.00)
--- NOTE | 2017-03-19 07:48 | MB ---
cc: ASHLEY SUGGS DANIEL F. M.D. SEIDE, HANSCY M.D. VIEL, STEPHEN C. MD VERZAL,JULIO MULLEN DATE OF CONSULTATION 03/17/2017 REASON FOR CONSULTATION Atrial fibrillation HISTORY OF PRESENT ILLNESS Mrs. Bunn is a 61-year-old female with morbid obesity, high blood pressure, atrial fibrillation with congestive heart failure, severe morbid obesity, history of coronary artery disease, coronary artery bypass grafting. She has previous ablation of atrial fibrillation. She was admitted to emergency room with possible TIA. There was a 70% carotid stenosis. There was a decision about surgery. Subsequently, left heart catheterization was performed by Dr. Juarez. There was subsequent claudication and abdominal hematoma. The patient was intubated, put on mechanical ventilation. She was extubated and sent to rehab. While at rehab, she developed an episode of atrial fibrillation with fast ventricular response. I will was consulted for evaluation and management. The chart was reviewed. The patient was evaluated. ALLERGIES MRI, ZITHROMAX, CYCLOSPORIN, ADRIAMYCIN, LEVOFLOXACIN AND VANCOMYCIN. SOCIAL HISTORY Negative for smoking and drinking. FAMILY HISTORY Noncontributory to her current medical condition. MEDICATIONS The patient was on: 1. Amiodarone 200 mg a day 2. Atorvastatin 40 mg a day 3. Imdur 30 mg a day 4. Metoprolol 60 mg a day 5. Entresto 97/103 one twice a day 6. Aldactone 25 mg a day 7. Aspirin 8. Venlafaxine ER 75 mg a day 9. Potassium 10. Lasix 40 mg twice a day 11. Omeprazole 12. Prednisone 5 mg a day 13. Levoxyl 200 mcg a day 14. Symbicort REVIEW OF SYSTEMS She refers feeling better, but some shortness of breath. No chest pain or chest discomfort. PHYSICAL EXAM Alert, fully oriented. VITAL SIGNS: Blood pressure at the rehab was around 110/62, pulse 88, respiratory rate 20. LUNGS: Ventilated. CARDIOVASCULAR: S1 and S2, irregular. No gallop. ABDOMEN: Soft. No mass. EXTREMITIES: Minimal edema. Electrocardiogram, possible atrial tachyarrhythmia adequate response. ASSESSMENT AND RECOMMENDATIONS Mrs. Bunn currently is stable. Heart rate is controlled. Apparently there was some episode of tachyarrhythmia. Medication will be reevaluated. Amiodarone 200 mg a day will be added. The case extensively discussed with the patient. For now, continue current management. If heart rate cannot be controlled, the patient is going to be transferred to the unit for further management. Case extensively discussed also with the nurse. I will monitor her during hospitalization. MD JOSEPH Parnell/KATIA /10:32 PM /7:23 AM
[2017-03-19] MEDS: BUDESONIDE-FORMOTEROL 160/4.5 MCG INHALER INH SCH ×2 (08:51→20:10)
[2017-03-19] MEDS: POTASSIUM CHLORIDE 20 MEQ CONTROLLED RELEASE TAB PO SCH ×2 (08:52→20:11)
[2017-03-19] MEDS: FUROSEMIDE 20 MG TAB PO SCH (08:52)
[2017-03-19] MEDS: predniSONE 5 MG TAB PO SCH (08:52)
[2017-03-19] MEDS: VENLAFAXINE HCL XR 75 MG CAP PO SCH (08:52)
[2017-03-19] MEDS: AMIODARONE 200 MG TAB PO SCH (08:52)
[2017-03-19] MEDS: SPIRONOLACTONE 25 MG TAB PO SCH (08:53)
[2017-03-19] MEDS: SODIUM CHLORIDE 0.9% FLUSH 10 ML FLUSH IV FLUSH SCH ×2 (08:53→20:10)
[2017-03-19] MEDS ORDERED: ASPIRIN 81 MG CHEW TAB CHEW SCH (09:00)
--- NOTE | 2017-03-19 11:54 | HHI.PR ---
Subjective Remarks Mrs. Bunn is feeling better today compared to last night. She had A. fib RVR overnight. This responded well to digoxin. She is currently on amiodarone. No further episodes of A. fib RVR thus far. The patient says that she's having some shortness of breath and her lower extremities are more swollen than usual. Some fluid overload may be present secondary to transient A. fib RVR. Objective Vital Signs Date Time Temp Pulse Resp B/P (MAP) Pulse Ox O2 Delivery O2 Flow Rate FiO2 03/19/17 11:00 74 03/19/17 11:00 97.4 75 19 93/39 (57) 99 03/19/17 10:00 75 03/19/17 09:00 76 03/19/17 08:00 75 03/19/17 07:15 73 03/19/17 07:15 100 Nasal Cannula 2.00 03/19/17 07:15 97.9 74 19 120/70 (87) 100 03/19/17 06:07 86 03/19/17 05:02 73 03/19/17 04:48 73 03/19/17 04:34 97.7 74 98/57 (71) 99 03/19/17 03:00 71 03/19/17 02:00 72 03/19/17 01:00 72 03/19/17 00:18 98.0 63 109/55 (73) 100 03/19/17 00:00 74 03/18/17 23:00 74 03/18/17 22:00 76 03/18/17 21:00 78 03/18/17 20:00 72 03/18/17 19:00 98.1 79 117/84 (95) 100 03/18/17 19:00 79 03/18/17 16:30 98.0 99 16 121/85 (97) 97 I/O 03/18/17 03/18/17 03/18/17 03/19/17 03/19/17 03/19/17 07:00 15:00 23:00 07:00 15:00 23:00 Intake Total 240 ml Output Total 400 ml Balance -160 ml Intake Oral 240 ml Output Urine Total 400 ml # Voids 1 Result Diagram: 03/19/1744403/19/17444 Objective Remarks GENERAL: NAD, A&Ox3 HEAD: Normocephalic. NECK: Supple, trachea midline. No lymphadenopathy. EYES: No scleral icterus. No injection or drainage. CARDIOVASCULAR: Regular rate and rhythm without murmurs, gallops, or rubs. RESPIRATORY: Breath sounds equal bilaterally. No accessory muscle use. Bilateral pulmonary edema based on sounds and crackles at bases bilaterally. GASTROINTESTINAL: Abdomen soft, non-tender, nondistended. MUSCULOSKELETAL: No cyanosis, bilateral lower extremity edema. SKIN: Warm and dry. NEURO: No focal neurological deficitis. A/P Problem List: (1) Atrial fibrillation with RVR ICD Code: I48.91 - Unspecified atrial fibrillation (2) CHF exacerbation ICD Code: I50.9 - Heart failure, unspecified (3) CHF (congestive heart failure) ICD Code: I50.9 - Heart failure, unspecified Status: Chronic (4) Atrial fibrillation ICD Code: I48.91 - Atrial fibrillation Status: Chronic Assessment and Plan This is a 61-year-old female with past medical history significant for HTN, CHF, A. fib s/p ablations x4, CAD s/p CABG x4, carotid artery stenosis , TIA, HLD, COPD on home O2, CKD, hypothyroidism and obesity. Admitted secondary to A. fib RVR with CHF exacerbation A. fib RVR Improved Continue amiodarone Monitor on telemetry CHF exacerbation This is secondary to A. fib RVR with underlying CHF Increased diuresis to 40 mg IV Lasix twice a day Monitor for fluid balance Patient should be stable for transfer back to [facility] once fluid balance CAD s/p CABG x 4 2006 Carotid artery stenosis Continue low-dose aspirin Continue to follow as an outpatient for planned right carotid endarterectomy Hypertension Continue baseline treatment Follow blood pressures Adjust treatments as needed COPD No exacerbation Continue Symbicort Continue Spiriva Duo nebs as needed Hypothyroidism Continue levothyroxine DVT prophylaxis Heparin Arnulfo Mai MD Mar 19, 2017 11:54
[2017-03-19] MEDS ORDERED: FUROSEMIDE 40 MG/4 ML VIAL IV PUSH ONE (12:00)
[2017-03-19] MEDS: FUROSEMIDE 40 MG/4 ML VIAL IV PUSH SCH (17:28)
[2017-03-19] MEDS: ATORVASTATIN 40 MG TAB PO SCH (20:11)
[2017-03-20] VITALS (22 sets, daily range): BP systolic 94–123; BP diastolic 64–77; PULSE 74–124; RESP 18–20; TEMP 97.6–98.2; O2SAT 95–100
[2017-03-20] MEDS: LEVOTHYROXINE SODIUM 100 MCG TAB PO SCH (05:43)
[2017-03-20] MEDS: HEPARIN SODIUM - SQ 10,000 UNITS/ML VIAL SQ SCH (05:44)
[2017-03-20 06:41] LABS: BASOPHIL % 0.3 % (0.0-2.0); EOSINOPHIL # 0.1 TH/MM3 (0-0.4); EOSINOPHIL % 1.7 % (0.0-4.0); HEMATOCRIT 30.2 % (35.0-46.0); LYMPH % 9.5 % (9.0-44.0); LYMPHOCYTE # 0.6 TH/MM3 (1.0-4.8); MEAN CELL VOLUME 96.5 FL (80.0-100.0); MEAN CORPUSCULAR HEMOGLOBIN 32.1 PG (27.0-34.0); MEAN CORPUSCULAR HGB CONC 33.2 % (32.0-36.0); MEAN PLATELET VOLUME 6.7 FL (7.0-11.0); MONO % 7.7 % (0.0-8.0); MONOCYTE # 0.5 TH/MM3 (0-0.9); NEUT % 80.8 % (16.0-70.0); PLATELET COUNT 178 TH/MM3 (150-450); RED BLOOD COUNT 3.13 MIL/MM3 (4.00-5.30); RED CELL DISTRIBUTION WIDTH 23.5 % (11.6-17.2); WHITE BLOOD COUNT 6.3 TH/MM3 (4.0-11.0)
[2017-03-20 07:04] LABS: ALBUMIN 2.8 GM/DL (3.4-5.0); ALT (GPT) 12 U/L (10-53); AST (GOT) 28 U/L (15-37); BICARBONATE 36.7 MEQ/L (21.0-32.0); BLOOD UREA NITROGEN 23 MG/DL (7-18); CALCIUM 8.7 MG/DL (8.5-10.1); CHLORIDE 99 MEQ/L (98-107); CREATININE 0.95 MG/DL (0.50-1.00); GLOMERULAR FILTRATION RATE 60 ML/MIN (>89); GLUCOSE,RANDOM 75 MG/DL (74-106); SODIUM (NA) 142 MEQ/L (136-145)
[2017-03-20 07:06] LABS: ALKALINE PHOSPHATASE 126 U/L (45-117); TOTAL BILIRUBIN ADULT 1.6 MG/DL (0.2-1.0); TOTAL PROTEIN 6.9 GM/DL (6.4-8.2)
--- NOTE | 2017-03-20 08:04 | EKG ---
Date Performed: 03/18/2017 Time Performed: 21:15:02 PTAGE: 61 years EKG: Possible ectopic atrial rhythm Septal and lateral ST-T changes may be due to myocardial isc hemia Low QRS voltages in precordial leads Abnormal ECG Since PREVIOUS TRACING , no significant change noted PREVIOUS TRACIN03/18/2017 17.09 DOCTOR: Thom Alejandro Interpretating Date/Time 03/20/2017 08:03:54
--- NOTE | 2017-03-20 08:04 | EKG ---
Date Performed: 03/18/2017 Time Performed: 17:09:14 PTAGE: 61 years EKG: Atrial fibrillation vs ectopic atrial rhythm IV conduction defect Lateral ST-T changes are nonspecific Abnormal ECG Compared to PREVIOUS TRACING , previously seen ST depression have improved. PREVIOUS TRACIN 018 14.08 DOCTOR: Thom Alejandro Interpretating Date/Time 03/20/2017 08:03:42
[2017-03-20] MEDS: FUROSEMIDE 40 MG/4 ML VIAL IV PUSH SCH ×2 (09:31→17:29)
[2017-03-20] MEDS: predniSONE 5 MG TAB PO SCH (09:31)
[2017-03-20] MEDS: SODIUM CHLORIDE 0.9% FLUSH 10 ML FLUSH IV FLUSH SCH ×2 (09:31→21:24)
[2017-03-20] MEDS: VENLAFAXINE HCL XR 75 MG CAP PO SCH (09:31)
[2017-03-20] MEDS: POTASSIUM CHLORIDE 20 MEQ CONTROLLED RELEASE TAB PO SCH ×2 (09:31→21:23)
[2017-03-20] MEDS: SPIRONOLACTONE 25 MG TAB PO SCH (09:31)
[2017-03-20] MEDS: BUDESONIDE-FORMOTEROL 160/4.5 MCG INHALER INH SCH ×2 (09:31→21:21)
[2017-03-20] MEDS: AMIODARONE 200 MG TAB PO SCH (09:31)
[2017-03-20] MEDS: ACETAMINOPHEN/HYDROcodone 325 MG/5 MG TAB PO PRN ×2 (11:26→17:30)
--- NOTE | 2017-03-20 13:39 | HHI.PR ---
Subjective Remarks A. fib RVR is resolved. However, patient had hemoptysis this morning. Hemoglobin levels appear stable. When seen, she is also reporting constipation. Objective Vital Signs Date Time Temp Pulse Resp B/P (MAP) Pulse Ox O2 Delivery O2 Flow Rate FiO2 03/20/17 13:31 19 03/20/17 13:00 78 03/20/17 12:00 92 03/20/17 11:00 97.7 98 20 111/64 (80) 100 03/20/17 11:00 98 03/20/17 10:00 101 03/20/17 09:00 94 03/20/17 08:00 86 03/20/17 07:30 78 03/20/17 07:30 97 Nasal Cannula 2.00 03/20/17 07:30 97.6 76 20 123/76 (92) 97 03/20/17 06:29 77 03/20/17 05:27 80 03/20/17 04:13 124 03/20/17 03:41 77 03/20/17 03:24 97.8 74 110/71 (84) 97 03/20/17 00:00 97.8 83 94/70 (78) 98 03/19/17 23:00 73 03/19/17 20:00 97.2 92 91/56 (68) 99 03/19/17 20:00 Nasal Cannula 03/19/17 19:00 77 03/19/17 18:00 77 03/19/17 17:00 78 03/19/17 16:00 75 03/19/17 15:00 98.0 76 20 118/74 (89) 99 03/19/17 15:00 75 03/19/17 14:00 76 I/O 03/19/17 03/19/17 03/19/17 03/20/17 03/20/17 03/20/17 07:00 15:00 23:00 07:00 15:00 23:00 Intake Total 240 ml 720 ml 240 ml Output Total 400 ml 1900 ml 1200 ml Balance -160 ml -1180 ml -960 ml Intake Oral 240 ml 720 ml 240 ml Output Urine Total 400 ml 1900 ml 1200 ml # Voids 1 Result Diagram: 03/20/17 0537 03/20/1737 Objective Remarks GENERAL: NAD, A&Ox3 HEAD: Normocephalic. NECK: Supple, trachea midline. No lymphadenopathy. EYES: No scleral icterus. No injection or drainage. CARDIOVASCULAR: Regular rate and rhythm without murmurs, gallops, or rubs. RESPIRATORY: Breath sounds equal bilaterally. No accessory muscle use. Bilateral pulmonary edema based on sounds and crackles at bases bilaterally. GASTROINTESTINAL: Abdomen soft, non-tender, nondistended. MUSCULOSKELETAL: No cyanosis, bilateral lower extremity edema. SKIN: Warm and dry. NEURO: No focal neurological deficitis. A/P Problem List: (1) Atrial fibrillation with RVR ICD Code: I48.91 - Unspecified atrial fibrillation (2) CHF exacerbation ICD Code: I50.9 - Heart failure, unspecified (3) CHF (congestive heart failure) ICD Code: I50.9 - Heart failure, unspecified Status: Chronic (4) Atrial fibrillation ICD Code: I48.91 - Atrial fibrillation Status: Chronic Assessment and Plan This is a 61-year-old female with past medical history significant for HTN, CHF, A. fib s/p ablations x4, CAD s/p CABG x4, carotid artery stenosis , TIA, HLD, COPD on home O2, CKD, hypothyroidism and obesity. Admitted secondary to A. fib RVR with CHF exacerbation. A. fib RVR appears control. CHF exacerbation is improving with diuresis. Hemoptysis present this morning. Aspirin and heparin held. Monitor CBC to ensure no significant blood loss. Labs ordered for further monitoring. She also reports constipation and this will be treated with Colace scheduled and lactulose as needed. A. fib RVR Resolved Continue amiodarone Monitor on telemetry CHF exacerbation Improving This is secondary to A. fib RVR with underlying CHF Increased diuresis to 40 mg IV Lasix twice a day Monitor for fluid balance Patient should be stable for transfer back to [facility] once fluid balance CAD s/p CABG x 4 2006 Carotid artery stenosis Continue low-dose aspirin Continue to follow as an outpatient for planned right carotid endarterectomy Hypertension Continue baseline treatment Follow blood pressures Adjust treatments as needed COPD No exacerbation Continue Symbicort Continue Spiriva Duo nebs as needed Hypothyroidism Continue levothyroxine DVT prophylaxis Heparin Arnulfo Mai MD Mar 20, 2017 13:39
[2017-03-20] MEDS ORDERED: GLYCERIN ADULT 2 GM SUPP RECTAL PRN (13:45)
[2017-03-20] MEDS ORDERED: LACTULOSE SYRUP 20 GM/30 ML CUP PO PRN (13:45)
--- NOTE | 2017-03-20 14:19 | HHI.PR ---
Subjective Remarks Want to seat in the chair Objective Vital Signs Date Time Temp Pulse Resp B/P (MAP) Pulse Ox O2 Delivery O2 Flow Rate FiO2 03/20/17 14:02 104 03/20/17 13:31 19 03/20/17 13:00 78 03/20/17 12:00 92 03/20/17 11:00 97.7 98 20 111/64 (80) 100 03/20/17 11:00 98 03/20/17 10:00 101 03/20/17 09:00 94 03/20/17 08:00 86 03/20/17 07:30 78 03/20/17 07:30 97 Nasal Cannula 2.00 03/20/17 07:30 97.6 76 20 123/76 (92) 97 03/20/17 06:29 77 03/20/17 05:27 80 03/20/17 04:13 124 03/20/17 03:41 77 03/20/17 03:24 97.8 74 110/71 (84) 97 03/20/17 00:00 97.8 83 94/70 (78) 98 03/19/17 23:00 73 03/19/17 20:00 97.2 92 91/56 (68) 99 03/19/17 20:00 Nasal Cannula 03/19/17 19:00 77 03/19/17 18:00 77 03/19/17 17:00 78 03/19/17 16:00 75 03/19/17 15:00 98.0 76 20 118/74 (89) 99 03/19/17 15:00 75 I/O 03/19/17 03/19/17 03/19/17 03/20/17 03/20/17 03/20/17 07:00 15:00 23:00 07:00 15:00 23:00 Intake Total 240 ml 720 ml 240 ml Output Total 400 ml 1900 ml 1200 ml Balance -160 ml -1180 ml -960 ml Intake Oral 240 ml 720 ml 240 ml Output Urine Total 400 ml 1900 ml 1200 ml # Voids 1 Result Diagram: 03/20/17 0537 03/20/17 0537 Imaging Alert, fully oriented Lungs: ventilated Heart: S1, S2 regular Abdomen: soft. no mass, obese Ext: no edema Last Impressions Lower Extremity Ultrasound 03/18/17 0000 Signed Impressions: Service Date/Time: Saturday, March 18, 2017 16:28 - CONCLUSION: Negative for deep venous thrombosis. Bilateral lower extremity edema. Gadiel Wan MD FACR Chest X-Ray 03/18/17 0000 Signed Impressions: Service Date/Time: Saturday, March 18, 2017 16:06 - CONCLUSION: Grossly stable CHF Savage Aranda MD Current Medications Medications (Trade) Dose Ordered Sig/Alexa Route Start Time Stop Time Status Last Admin (NS Flush) 2 ml UNSCH PRN IV FLUSH 03/18/17 16:00 (NS Flush) 2 ml BID IV FLUSH 03/18/17 21:00 03/20/17 09:31 (Narcan Inj) 0.4 mg UNSCH PRN IV PUSH 03/18/17 16:00 (Heparin Inj) 5,000 units Q8HR SQ 03/18/17 22:00 Future Hold 03/20/17 05:44 (Cordarone) 200 mg DAILY PO 03/19/17 09:00 03/20/17 09:31 (Aspirin Chew) 81 mg DAILY CHEW 03/19/17 09:00 Future Hold 03/19/17 08:52 (Lipitor) 40 mg HS PO 03/18/17 21:00 03/19/17 20:11 ([place] 5-325 Mg) 1 tab Q6H PRN PO 03/18/17 17:00 03/20/17 11:26 (Synthroid) 200 mcg DAILY@0600 PO 03/19/17 06:00 03/20/17 05:43 (KCl) 20 meq Q12HR PO 03/18/17 21:00 03/20/17 09:31 (Deltasone) 5 mg DAILY PO 03/19/17 09:00 03/20/17 09:31 (Aldactone) 12.5 mg DAILY PO 03/19/17 09:00 03/20/17 09:31 (Effexor Xr) 75 mg DAILY PO 03/19/17 09:00 03/20/17 09:31 (Symbicort 160-4.5 Mcg Inh) 2 puff Q12HR INH 03/18/17 21:00 03/20/17 09:31 (Lasix) 20 mg BID@ PO 03/18/17 18:00 Future Hold 03/19/17 08:52 (Pill Splitter) 1 ea UNSCH PRN OTHER 03/18/17 17:00 (Lasix Inj) 40 mg BID@ IV PUSH 03/19/17 18:00 03/20/17 09:31 (Lactulose Liq) 30 ml ONCE ONCE PO 03/20/17 14:30 03/20/17 14:31 03/20/17 14:13 (Lactulose Liq) 30 ml BID PRN PO 03/20/17 13:45 (Colace) 100 mg ONCE ONCE PO 03/20/17 14:30 03/20/17 14:31 03/20/17 14:12 (Colace) 100 mg BID PO 03/20/17 21:00 (Glycerin Adult Supp) 2 gm DAILY PRN RECTAL 03/20/17 13:45 Assessment and Plan Problem List: (1) Atrial fibrillation ICD Codes: I48.91 - Atrial fibrillation Status: Chronic Plan: Patient stable HR control Doing better Continue with current management (2) HTN (hypertension) ICD Codes: I10 - Essential (primary) hypertension Status: Chronic Plan: SBP 114 Lenin Bryson MD Mar 20, 2017 14:19
[2017-03-20] MEDS ORDERED: LACTULOSE SYRUP 20 GM/30 ML CUP PO ONE (14:30)
[2017-03-20] MEDS ORDERED: DOCUSATE SODIUM 100 MG CAP PO ONE (14:30)
[2017-03-20] MEDS: ATORVASTATIN 40 MG TAB PO SCH (21:23)
[2017-03-20] MEDS: DOCUSATE SODIUM 100 MG CAP PO SCH (21:23)
[2017-03-21] VITALS (14 sets, daily range): BP systolic 105–116; BP diastolic 67–76; PULSE 76–86; RESP 20; TEMP 91.9–98.1; O2SAT 95–99
[2017-03-21] MEDS: LEVOTHYROXINE SODIUM 100 MCG TAB PO SCH (04:54)
[2017-03-21 07:04] LABS: HEMATOCRIT 29.7 % (35.0-46.0); HEMOGLOBIN 10.1 GM/DL (11.6-15.3); MEAN CELL VOLUME 95.7 FL (80.0-100.0); MEAN CORPUSCULAR HEMOGLOBIN 32.6 PG (27.0-34.0); MEAN PLATELET VOLUME 6.6 FL (7.0-11.0); PLATELET COUNT 170 TH/MM3 (150-450); RED BLOOD COUNT 3.11 MIL/MM3 (4.00-5.30); RED CELL DISTRIBUTION WIDTH 23.6 % (11.6-17.2); WHITE BLOOD COUNT 6.2 TH/MM3 (4.0-11.0)
[2017-03-21 07:29] LABS: BICARBONATE 37.8 MEQ/L (21.0-32.0); CALCIUM 9.2 MG/DL (8.5-10.1); CREATININE 0.88 MG/DL (0.50-1.00)
[2017-03-21] MEDS: BUDESONIDE-FORMOTEROL 160/4.5 MCG INHALER INH SCH (10:00)
[2017-03-21] MEDS: SODIUM CHLORIDE 0.9% FLUSH 10 ML FLUSH IV FLUSH SCH (10:00)
[2017-03-21] MEDS: FUROSEMIDE 40 MG/4 ML VIAL IV PUSH SCH (10:00)
[2017-03-21] MEDS: SPIRONOLACTONE 25 MG TAB PO SCH (10:01)
[2017-03-21] MEDS: AMIODARONE 200 MG TAB PO SCH (10:01)
[2017-03-21] MEDS: DOCUSATE SODIUM 100 MG CAP PO SCH (10:01)
[2017-03-21] MEDS: POTASSIUM CHLORIDE 20 MEQ CONTROLLED RELEASE TAB PO SCH (10:01)
[2017-03-21] MEDS: VENLAFAXINE HCL XR 75 MG CAP PO SCH (10:01)
[2017-03-21] MEDS: predniSONE 5 MG TAB PO SCH (10:01)
[2017-03-21] MEDS ORDERED: GLYCERIN ADULT RECTAL (10:50)
[2017-03-21] MEDS ORDERED: DOCU1CAP39 PO (10:50)
[2017-03-21] MEDS ORDERED: Lactulose Liq PO (10:50)
--- NOTE | 2017-03-21 10:54 | HHI.DS ---
Discharge Summary Admission Date Mar 18, 2017 at 15:47 Discharge Date: Mar 21, 2017 Admitting Diagnosis (1) Atrial fibrillation ICD Code: I48.91 - Atrial fibrillation Diagnosis: Principal Status: Chronic (2) Carotid stenosis ICD Code: I65.29 - Occlusion and stenosis of unspecified carotid artery Diagnosis: Secondary (3) Hypothyroidism ICD Code: E03.9 - Hypothyroidism, unspecified Diagnosis: Secondary Status: Chronic (4) HTN (hypertension) ICD Code: I10 - Essential (primary) hypertension Diagnosis: Secondary Status: Chronic (5) Polycystic kidney disease ICD Code: Q61.3 - Polycystic kidney, unspecified Diagnosis: Secondary Status: Chronic (6) Abdominal hematoma ICD Code: S30.1XXA - Contusion of abdominal wall, initial encounter Diagnosis: Secondary Status: Acute (7) Hx of coronary artery disease ICD Code: Z86.79 - Personal history of other diseases of the circulatory system Diagnosis: Secondary Status: Chronic (8) CHF (congestive heart failure) ICD Code: I50.9 - Heart failure, unspecified Diagnosis: Secondary Status: Chronic (9) PVD (peripheral vascular disease) ICD Code: I73.9 - Peripheral vascular disease, unspecified Diagnosis: Secondary (10) Obesity ICD Code: E66.9 - Obesity Diagnosis: Secondary Status: Acute Procedures none Brief History - From Admission This is a 61-year-old female with past medical history significant for HTN, CHF, A. fib s/p ablations x4, CAD s/p CABG x4, carotid artery stenosis , TIA, HLD, COPD on home O2, CKD, hypothyroidism and obesity. Recent hospitalization on 02/26 with complaints of dizziness and falling on her right side. During that admission patient was seen by neurology who determined she was experiencing vertigo and recommended follow-up with ENT. She underwent carotid artery ultrasound which found 70% stenosis of the proximal ICA and 45-50 % stenosis of the left ICA. Vascular surgery was consulted during her admission with plans of right carotid endarterectomy. Prior to endarterectomy patient underwent cardiac catheterization which revealed severe two-vessel coronary artery disease in the right dominant system. Recommendations by customs compliance analyst made to continue medical management of coronary artery disease. Her hospital stay was complicated secondary to hemorrhagic shock with severe hypotension and tachycardia following cardiac cath. CT scan of her abdomen revealed a large hematoma of the abdominal wall requiring evacuation of greater than 2 L of blood. Patient also received 14 units of PRBCs, 4 units of FFP, 2 units of platelets, and 2 units of cryo. She also developed hospital-acquired pneumonia/MDR E. coli for which she was followed by infectious disease and treated with IV Ertamenem. She was discharged to [facility] following that hospital stay. She was admitted to inpatient rehab on 03/11. During her stay at [facility] she was followed by medical team. Participation with rehab was challenged secondary to symptomatic hypotension. Patient with history of CHF, her Lasix have been held along with beta blockers secondary to hypotension. Cardiology was consulted during her stay at [facility], no note or recommendations found in EMR. Today patient developed heart palpitations during physical therapy along with hypotension. Patient was transferred back to her room and a stat EKG was performed which revealed heart rate 126, a flutter with rapid ventricular response. Attempt was made to contact customs compliance analystJonathan called on floor. Patient was placed on monitor with heart rate in the 140s, asymptomatic. Patient denies any shortness of breath or chest pains, or palpitations. She was administered 0.5 mg of IV digoxin at bedside by Jonathan nurse. Blood pressure stable, heart rate only dropped to the 130s. Discussed with rehab team , patient will be discharged from [facility] and admitted to inpatient side with telemetry monitoring. CBC/BMP: 03/21/17 0554 03/21/17 0554 Significant Findings Laboratory Tests Test 03/18/17 18:12 03/18/17 21:26 03/19/17 04:45 03/20/17 05:37 Red Blood Count 2.86 MIL/MM3 (4.00-5.30) 2.84 MIL/MM3 (4.00-5.30) 3.13 MIL/MM3 (4.00-5.30) Hemoglobin 9.4 GM/DL (11.6-15.3) 9.1 GM/DL (11.6-15.3) 10.0 GM/DL (11.6-15.3) Hematocrit 27.9 % (35.0-46.0) 27.7 % (35.0-46.0) 30.2 % (35.0-46.0) Red Cell Distribution Width 23.6 % (11.6-17.2) 23.2 % (11.6-17.2) 23.5 % (11.6-17.2) Mean Platelet Volume 6.5 FL (7.0-11.0) 6.6 FL (7.0-11.0) 6.7 FL (7.0-11.0) Neutrophils (%) (Auto) 84.1 % (16.0-70.0) 82.6 % (16.0-70.0) 80.8 % (16.0-70.0) Lymphocytes (%) (Auto) 7.2 % (9.0-44.0) 8.4 % (9.0-44.0) Lymphocytes # (Auto) 0.6 TH/MM3 (1.0-4.8) 0.6 TH/MM3 (1.0-4.8) 0.6 TH/MM3 (1.0-4.8) Activated Partial Thromboplast Time 23.6 SEC (24.3-30.1) Blood Urea Nitrogen 26 MG/DL (7-18) 24 MG/DL (7-18) 23 MG/DL (7-18) Random Glucose 69 MG/DL (74-106) 116 MG/DL (74-106) Albumin 2.8 GM/DL (3.4-5.0) 2.8 GM/DL (3.4-5.0) Alkaline Phosphatase 118 U/L (45-117) 126 U/L (45-117) Total Bilirubin 1.6 MG/DL (0.2-1.0) 1.6 MG/DL (0.2-1.0) Carbon Dioxide Level 32.1 MEQ/L (21.0-32.0) 36.4 MEQ/L (21.0-32.0) 36.7 MEQ/L (21.0-32.0) Estimat Glomerular Filtration Rate 64 ML/MIN (>89) 52 ML/MIN (>89) 60 ML/MIN (>89) Troponin I LESS THAN 0.02 NG/ML LESS THAN 0.02 NG/ML Creatinine 1.07 MG/DL (0.50-1.00) Calcium Level 8.2 MG/DL (8.5-10.1) Test 03/21/17 05:54 Red Blood Count 3.11 MIL/MM3 (4.00-5.30) Hemoglobin 10.1 GM/DL (11.6-15.3) Hematocrit 29.7 % (35.0-46.0) Red Cell Distribution Width 23.6 % (11.6-17.2) Mean Platelet Volume 6.6 FL (7.0-11.0) Blood Urea Nitrogen 21 MG/DL (7-18) Chloride Level 97 MEQ/L (98-107) Carbon Dioxide Level 37.8 MEQ/L (21.0-32.0) Estimat Glomerular Filtration Rate 66 ML/MIN (>89) Hospital Course Mrs. Bunn is a 61 -year-old female. She was admitted here secondary to an onset of A. fib RVR which caused pulmonary edema and CHF exacerbation. She was treated with digoxin and had good response. She's been controlled now for 2 days on amiodarone. She did have fluid excess of this was diuresed over the last 3 days. She's not fluid balance. A complication while here was hemoptysis. This did not cause any change in her hemoglobin levels and is likely related to a transient degree of pulmonary edema that she had with A. fib RVR. Heparin and aspirin have been held. Heparin will continue to be held and aspirin is safe to resume at this point. Patient also has constipation. She has been placed on a treatment regime including scheduled Colace, as needed lactulose, and as needed glycerin suppositories. She has yet to have bowel movement. She is offered stronger treatments including magnesium citrate and enema and right now the patient does not wish to use these modalities. She would prefer to be conservative and weight 1-2 more days before considering stronger treatments. She can continue these treatments and rehabilitation setting. Medically stable for discharge back to rehabilitation today. Pt Condition on Discharge: Stable Discharge Disposition: Rehab Inpatient Discharge Time: > 30 minutes Discharge Instructions DIET: Follow Instructions for: Heart Healthy Diet Activities you can perform: Regular-No Restrictions Other Activity Instructions: Activity with PT Follow up Referrals: PCP Follow-up - 2 Weeks New Medications: Docusate Sodium (Dok) 100 Mg Cap 100 MG PO BID for Constipation, #60 CAP [Glycerin Adult Supp] () 2 GM SUPP 2 GM RECTAL DAILY PRN for CONSTIPATION failing laxatives, #30 [Lactulose Liq] () 30 ML SYRP 30 ML PO BID PRN for Constipation, #60 Continued Medications: Amiodarone (Amiodarone) 200 Mg Tab 200 MG PO DAILY for Regulate Heart Beat, #30 TAB 0 Refills Aspirin (Tgt Aspirin) 81 Mg Chw 81 MG CHEW DAILY for CAD for 30 Days, EA Atorvastatin (Atorvastatin) 40 Mg Tab 40 MG PO HS for Cholesterol Management, #30 TAB 0 Refills Furosemide (Furosemide) 40 Mg Tab 40 MG PO BID@09,18 for CARD for 30 Days, TAB Hydrocodone-Acetaminophen ([place]) 5-325 mg Tab 1 TAB PO Q6H PRN for PAIN, TAB 0 Refills Isosorbide Mononitrate ER (Isosorbide Mononitrate ER) 30 Mg Nancy 30 MG PO DAILY for Prevent Chest Pain, #30 TAB 0 Refills Levothyroxine (Synthroid) 100 Mcg Tab 200 MCG PO DAILY for Thyroid, #30 TAB 0 Refills Metoprolol Tartrate (Metoprolol Tartrate) 50 Mg Tab 50 MG PO BID, #60 TAB 0 Refills Omeprazole (Omeprazole) 20 Mg Tab 20 MG PO DAILY, #30 TAB 0 Refills Potassium Chloride Microencaps (Potassium Chloride Microencaps) 20 Meq Tab 20 MEQ PO Q12HR for electr for 30 Days, TAB Prednisone (Prednisone) 5 Mg Tab 5 MG PO DAILY for resp for 7 Days, #7 TAB start on 2/2 Sacubitril-Valsartan (Entresto) 97-103 Mg Tab 2 TAB PO DAILY for Heart Failure, #30 TAB 0 Refills Spironolactone (Spironolactone) 25 Mg Tab 12.5 MG PO DAILY, #15 TAB 0 Refills Venlafaxine ER 24 HR (Venlafaxine ER 24 HR) 75 Mg Tab 75 MG PO DAILY, #30 TAB 0 Refills [Budeson-Formot 160-4.5 Mcg Inh] () 60 PUFF AERO 2 PUFF INH Q12HR for breath for 30 Days Arnulfo Mai MD Mar 21, 2017 10:53
--- NOTE | 2017-03-21 13:53 | HHI.PR ---
Subjective Remarks Ready to go to the rehab Objective Vital Signs Date Time Temp Pulse Resp B/P (MAP) Pulse Ox O2 Delivery O2 Flow Rate FiO2 03/21/17 13:00 76 03/21/17 12:00 80 03/21/17 11:00 86 03/21/17 11:00 98.1 80 20 111/73 (86) 99 03/21/17 10:00 82 03/21/17 09:00 86 03/21/17 08:00 78 03/21/17 08:00 97 Nasal Cannula 2.00 03/21/17 08:00 97.7 78 20 116/76 (89) 97 03/21/17 07:00 76 03/21/17 06:00 77 03/21/17 05:00 79 03/21/17 04:00 98.1 77 20 112/73 (86) 98 03/21/17 04:00 78 03/21/17 03:00 78 03/21/17 02:00 77 03/21/17 01:00 78 03/21/17 00:00 91.9 76 20 105/67 (80) 95 03/21/17 00:00 78 03/20/17 23:00 88 03/20/17 22:00 83 03/20/17 21:00 97 03/20/17 20:00 Nasal Cannula 2.00 03/20/17 20:00 85 03/20/17 20:00 98.1 79 18 99/71 (80) 98 03/20/17 18:31 17 03/20/17 18:00 86 03/20/17 17:00 79 03/20/17 16:00 87 03/20/17 15:00 98.2 78 18 111/77 (88) 95 03/20/17 15:00 79 03/20/17 14:02 104 I/O 03/20/17 03/20/17 03/20/17 03/21/17 03/21/17 03/21/17 07:00 15:00 23:00 07:00 15:00 23:00 Intake Total 240 ml 480 ml 240 ml Output Total 1200 ml 1700 ml 1400 ml Balance -960 ml -1220 ml -1160 ml Intake Oral 240 ml 480 ml 240 ml Output Urine Total 1200 ml 1700 ml 1400 ml Result Diagram: 03/21/17 0554 03/21/17 0554 Imaging Alert, fully oriented Lungs: ventilated Heart: S1, S2 regular, no gallop Abdomen: soft, no mass, obese Ext: no edema Current Medications Medications (Trade) Dose Ordered Sig/Alexa Route Start Time Stop Time Status Last Admin (NS Flush) 2 ml UNSCH PRN IV FLUSH 03/18/17 16:00 (NS Flush) 2 ml BID IV FLUSH 03/18/17 21:00 03/21/17 10:00 (Narcan Inj) 0.4 mg UNSCH PRN IV PUSH 03/18/17 16:00 (Heparin Inj) 5,000 units Q8HR SQ 03/18/17 22:00 Future Hold 03/20/17 05:44 (Cordarone) 200 mg DAILY PO 03/19/17 09:00 03/21/17 10:01 (Aspirin Chew) 81 mg DAILY CHEW 03/19/17 09:00 Future Hold 03/19/17 08:52 (Lipitor) 40 mg HS PO 03/18/17 21:00 03/20/17 21:23 ([place] 5-325 Mg) 1 tab Q6H PRN PO 03/18/17 17:00 03/20/17 17:30 (Synthroid) 200 mcg DAILY@0600 PO 03/19/17 06:00 03/21/17 04:54 (KCl) 20 meq Q12HR PO 03/18/17 21:00 03/21/17 10:01 (Deltasone) 5 mg DAILY PO 03/19/17 09:00 03/21/17 10:01 (Aldactone) 12.5 mg DAILY PO 03/19/17 09:00 03/21/17 10:01 (Effexor Xr) 75 mg DAILY PO 03/19/17 09:00 03/21/17 10:01 (Symbicort 160-4.5 Mcg Inh) 2 puff Q12HR INH 03/18/17 21:00 03/21/17 10:00 (Lasix) 20 mg BID@,18 PO 03/18/17 18:00 Future Hold 03/19/17 08:52 (Pill Splitter) 1 ea UNSCH PRN OTHER 03/18/17 17:00 (Lasix Inj) 40 mg BID@18 IV PUSH 03/19/17 18:00 03/21/17 10:00 (Lactulose Liq) 30 ml BID PRN PO 03/20/17 13:45 (Colace) 100 mg BID PO 03/20/17 21:00 03/21/17 10:01 (Glycerin Adult Supp) 2 gm DAILY PRN RECTAL 03/20/17 13:45 03/20/17 21:32 Assessment and Plan Problem List: (1) Atrial fibrillation ICD Codes: I48.91 - Atrial fibrillation Status: Chronic Plan: Patient doing better HR still high Cardizem CD 120 mg will be added Can be DH when ok with the managing team (2) HTN (hypertension) ICD Codes: I10 - Essential (primary) hypertension Status: Chronic Plan: SBP 114 Lenin Bryson MD Mar 21, 2017 13:53
[2017-03-21] MEDS ORDERED: DILTIAZEM-CD 120 MG CAP ER PO SCH (14:00)
== END 2017-03-21 14:30 | DRG 309 ==
LOC: HCIS 15:47
PROVIDERS: ADMIT Hospitalist; ATTEND Hospitalist
DX: I48.91 Unspecified atrial fibrillation (principal); I13.0 Hypertensive heart and chronic kidney disease with heart failure and stage 1 through stage 4 chronic kidney disease, or unspecified chronic kidney disease; Q61.3 Polycystic kidney, unspecified; I50.9 Heart failure, unspecified; R04.2 Hemoptysis; N18.9 Chronic kidney disease, unspecified; Z99.81 Dependence on supplemental oxygen; J44.9 Chronic obstructive pulmonary disease, unspecified; I65.22 Occlusion and stenosis of left carotid artery; K59.00 Constipation, unspecified; E03.9 Hypothyroidism, unspecified; I25.10 Atherosclerotic heart disease of native coronary artery without angina pectoris; Z95.1 Presence of aortocoronary bypass graft; Z95.810 Presence of automatic (implantable) cardiac defibrillator; I73.9 Peripheral vascular disease, unspecified; E78.5 Hyperlipidemia, unspecified; E66.01 Morbid (severe) obesity due to excess calories; Z86.73 Personal history of transient ischemic attack (TIA), and cerebral infarction without residual deficits
CPT/HCPCS: 71045; 80048; 80053; 82550; 84484; 85025; 85027; 85610; 85730; 93005; 93306; 93970; J1644; J1940; J7512